=== PATIENT | female | born 1955 | race Caucasian/White ===

== ENCOUNTER 2017-03-13 21:42 | Inpatient (IN) | payer OTHER ==
[2017-03-13 21:42] VITALS: BMI 40.2
[2017-03-13] MEDS ORDERED: Sodium Chloride 0.9% 1,000 ML IV STA (22:16)
--- NOTE | 2017-03-13 22:34 | ED PDOC ---
HPI: Abdomen Time Seen by Provider: 03/13/17 22:02 Chief Complaint (Nursing): Abdominal Pain Chief Complaint (Provider): Abdominal pain History Per: Patient History/Exam Limitations: no limitations Onset/Duration Of Symptoms: Hrs (x6) Current Symptoms Are (Timing): Constant Severity: Mild Quality Of Discomfort: Sharp Additional Complaint(s): Loan Orozco is a 61 year old female, with a past medical history of occurrent intestinal obstruction, hypothyroidism, dyslipidemia, colon cancer and diabetes, who was brought to the emergency department by EMS and is complaining of a constant abdominal pain associated with vomit, and nausea onset for 6 hours. Patient reports symptoms are consistent with past obstructions. She describes the pain as constant and sharp and reports distension in her abdomen. Patient states she vomited once and had persistent nausea. She denies any fever, or chills. No further medical complaints. PMD: Sravan Hillman Past Medical History Reviewed: Historical Data, Nursing Documentation, Vital Signs Vital Signs: Last Vital Signs Temp 98.8 F 03/13/17 21:44 Pulse 86 03/13/17 21:44 Resp 22 03/13/17 21:44 BP 130/58 L 03/13/17 21:44 Pulse Ox 99 03/14/17 01:45 - Medical History PMH: Anemia, Anxiety, Asthma, Bronchitis, Depression, Diabetes, HTN, Hypercholesterolemia, Hyperlipidemia Denies: Hepatitis, HIV, Seizures, Sexually Transmitted Disease - Surgical History Surgical History: Appendectomy, Cholecystectomy - Family History Family History: States: Hypertension - Home Medications Home Medications: Ambulatory Orders Medication Instructions Recorded Albuterol Sulfate [Albuterol 2 puff IH Q6H PRN 05/24/14 Sulfate Hfa] Aspirin [Aspirin EC] 81 mg PO DAILY 05/24/14 Enalapril Maleate 20 mg PO DAILY 05/24/14 Insulin Aspart, Recombinant 15 unit SC BID 05/24/14 [Novolog] Insulin Glargine, Recombinan 34 unit SC HS 05/24/14 [Lantus] Latanoprost [Xalatan] 1 drop EACHEYE HS 05/24/14 Levothyroxine Sodium [Synthroid] 88 mcg PO HS 05/24/14 Meclizine Hydrochloride [Meclizine 25 mg PO TID PRN 05/24/14 HCl] Pantoprazole Sodium [Protonix] 40 mg PO DAILY 05/24/14 Risperidone [Risperdal] 0.5 mg PO HS 05/24/14 Sertraline [Zoloft] 100 mg PO HS 05/24/14 Simvastatin [Zocor] 20 mg PO HS 05/24/14 Zolpidem Tartrate [Ambien] 10 mg PO HS 05/24/14 - Allergies Allergies/Adverse Reactions: Allergies Allergy/AdvReac Type Severity Reaction Status Date / Time No Known Allergies Allergy Verified 05/16/15 12:02 Review of Systems ROS Statement: Except As Marked, All Systems Reviewed And Found Negative Constitutional: Negative for: Fever, Chills Gastrointestinal: Positive for: Nausea (persistent), Vomiting (one episode), Abdominal Pain (constant and sharp) Physical Exam - Reviewed Nursing Documentation Reviewed: Yes Vital Signs Reviewed: Yes - Physical Exam Appears: Positive for: Non-toxic, No Acute Distress (mild pain distress) Head Exam: Positive for: ATRAUMATIC, NORMAL INSPECTION, NORMOCEPHALIC Skin: Positive for: Normal Color, Warm, Dry Eye Exam: Positive for: Normal appearance ENT: Positive for: Normal ENT Inspection Neck: Positive for: Normal, Painless ROM, Supple Cardiovascular/Chest: Positive for: Regular Rate, Rhythm. Negative for: Murmur Respiratory: Positive for: Normal Breath Sounds. Negative for: Respiratory Distress Gastrointestinal/Abdominal: Positive for: Bowel Sounds (hypoactive bowel sounds) , Tenderness (diffusely tender ), Distended Extremity: Positive for: Normal ROM. Negative for: Pedal Edema, Deformity Neurologic/Psych: Positive for: Alert, Oriented. Negative for: Motor/Sensory Deficits - Laboratory Results Result Diagrams: 03/13/17 23:31 03/13/17 23:31 - ECG O2 Sat by Pulse Oximetry: 99 (RA) Pulse Ox Interpretation: Normal Medical Decision Making Medical Decision Making: Initial Impression: 61 y/o female with abdominal distension and recurring intestinal obstructions Initial Plan: --Abd & Pelvis IV contrast only [CT] --EKG --CMP --Lact acid, Plasma --Lipase --Urine dipstick --CBC w/ differential --PTT --PT --Morphine 8 mg IVP --NS IV 1,000 ml @ 1,000 mls/hr --Zofran Inj 4 mg IV --Urinalysis --reevaluation 01:30 (03/14/17) CT A/P scan reviewed. Findings noted as follows: Lower thorax: Bibasilar right patchy mild nonspecific infiltrates are present, with peribronchial thickening consistent with atelectasis or pneumonia. There is fluid in the distal esophagus with wall thickening representing delayed emptying versus gastroesophageal reflux. ABDOMEN: Liver: Enlarged nodular cirrhotic liver. Gallbladder and bile ducts: Cholecystectomy. Pancreas: Unremarkable. No mass. No ductal dilation. Spleen: Splenomegaly. Adrenals: Unremarkable. No mass. Kidneys and ureters: Unremarkable. No solid mass. No hydronephrosis. Stomach and bowel: There is fluid filled stomach and small bowel loops with mesenteric edema. The small bowel loops are dilated with possible transition at the level of the anastomosis seen on image 64 series 2. There is ileocolic anastomosis in the mid anterior abdomen the dilatation of small bowel loops proximal to the anastomosis. Correlation with patient's clinical obstructive symptoms is recommended if partial small bowel obstruction is clinically suspected. Clinical history of colon cancer. Diverticulosis. No mucosal thickening. Appendix: Appendectomy. PELVIS: Bladder: Partially decompressed bladder with bladder wall thickening. Correlation with urinalysis is recommended only if clinical cystitis is suspected. Reproductive: Hysterectomy. ABDOMEN and PELVIS: Intraperitoneal space: Unremarkable. No free air. No significant fluid collection. Bones/joints: L4-L5 and L5-S1 vacuum degenerative disc disease. No acute fracture. No dislocation. Soft tissues: There is diastases of inferior rectus muscle. Anterior abdominal wall suprapubic infiltration likely a sequela postoperative etiology. Vasculature: Unremarkable. No abdominal aortic aneurysm. Lymph nodes: Unremarkable. No enlarged lymph nodes. IMPRESSION: 1. There is fluid filled stomach and small bowel loops with mesenteric edema. The small bowel loops are dilated with possible transition at the level of the anastomosis seen on image 64 series 2. There is ileocolic anastomosis in the mid anterior abdomen the dilatation of small bowel loops proximal to the anastomosis. Correlation with patient's clinical obstructive symptoms is recommended if partial small bowel obstruction is clinically suspected. Close clinical followup is recommended. 2. Cirrhotic liver disease. Splenomegaly. 01:[address] Chirag Hillman, the provider known to patient from previous episodes of small bowel obstruction. Patient will be evaluated in the morning. 01:[address] Clemente who agrees to admit patient. Upon provider reevaluation patient is medically stable and requires no further treatment in the ED at this time. Counseling was provided and all questions were answered regarding diagnosis. There is agreement to plan of admission. Return if symptoms persist or worsen. Clinical impression: Small bowel obstruction Scribe Attestation: Documented by Real Man and Gia Crocker, acting as scribes for Quinten Hinds MD. Provider Scribe Attestation: All medical record entries made by the Scribe were at my direction and personally dictated by me. I have reviewed the chart and agree that the record accurately reflects my personal performance of the history, physical exam, medical decision making, and the department course for this patient. I have also personally directed, reviewed, and agree with the discharge instructions and disposition. Disposition - Clinical Impression Clinical Impression: Small bowel obstruction - Patient ED Disposition Is Patient to be Admitted: Yes Discussed With DrDomonique: Chirag Hillman Doctor Will See Patient In The: Hospital Counseled Patient/Family Regarding: Studies Performed, Diagnosis - Disposition Disposition: Transfer of Care Disposition Time: 01:42 Condition: FAIR Forms: [facility] (Bhutanese)
[2017-03-13 23:34] LABS: BASO % 0.8 % (0.0-2.0); EOS # 0.1 K/uL (0.0-0.7); EOS % 3.1 % (0.0-4.0); HEMATOCRIT 31.5 % (34.0-47.0); LYMPH # 0.6 K/uL (1.0-4.3); LYMPH % 17.1 % (20.0-40.0); MEAN CORPUSCULAR HEMOGLOBIN 24.1 pg (27.0-31.0); MEAN CORPUSCULAR HGB CONC 30.9 g/dL (33.0-37.0); MEAN PLATELET VOLUME 10.3 fl (7.2-11.7); MONO # 0.2 K/uL (0.0-0.8); MONO % 5.2 % (0.0-10.0); NEUT # 2.6 K/uL (1.8-7.0); NEUT % 73.8 % (50.0-75.0); RED CELL DISTRIBUTION WIDTH 17.3 % (11.5-14.5); WHITE BLOOD COUNT 3.6 K/uL (4.8-10.8)
[2017-03-13 23:42] LABS: ALB/GLOB RATIO 1.2 (1.0-2.1); ALKALINE PHOSPHATASE 107 U/L (38-126); ALT/SGPT 34 U/L (9-52); AST/SGOT 39 U/L (14-36); BILIRUBIN,TOTAL 0.7 mg/dl (0.2-1.3); BLOOD UREA NITROGEN 9 mg/dl (7-17); CALCIUM 9.1 mg/dL (8.4-10.2); CARBON DIOXIDE 24 mmol/L (22-30); CHLORIDE 108 mmol/L (98-107); GFR AFRICAN-AMERICAN > 60; GLUCOSE,RANDOM 161 mg/dL (65-105); LIPASE 45 U/L (23-300); POTASSIUM 3.8 MMOL/L (3.6-5.0); SODIUM 143 mmol/l (132-148); TOTAL PROTEIN 7.9 G/DL (6.3-8.2)
[2017-03-13 23:57] LABS: PARTIAL THROMBOPLASTIN TIME 33.8 Seconds (25.6-37.1)
[2017-03-14] MEDS ORDERED: Iohexol 300 100 ML IJ ONE (00:22)
[2017-03-14] MEDS ORDERED: Sodium Chloride 0.9% 100 ML ONE (00:22)
[2017-03-14 00:46] LABS: URINE BILIRUBIN NEGATIVE (NEGATIVE); URINE BLOOD NEGATIVE (NEGATIVE); URINE COLOR STRAW (YELLOW); URINE GLUCOSE (UA) NEG (Normal); URINE KETONE NEGATIVE (NEGATIVE); URINE LEUKOCYTE ESTERASE TRACE Leu/uL (Negative); URINE PROTEIN NEGATIVE (NEGATIVE); URINE UROBILINOGEN 0.2-1.0 mg/dL (0.2-1.0)
--- NOTE | 2017-03-14 01:31 | CT ---
EXAM: CT Abdomen and Pelvis With Intravenous Contrast CLINICAL HISTORY: 61 years old, female; Pain; Abdominal pain; Generalized; Prior surgery; Surgery date: 6+ months; Surgery type: Hysterectomy. Appendectomy. Gall bladder. Colon ca; Additional info: Abd pain HX obstruction TECHNIQUE: Axial computed tomography images of the abdomen and pelvis with intravenous contrast. All CT scans at this facility use one or more dose reduction techniques, viz.: automated exposure control; ma/kV adjustment per patient size (including targeted exams where dose is matched to indication; i.e. head); or iterative reconstruction technique. 654 images are submitted. Axial images are submitted and lung windows. Coronal and sagittal reformatted images were created and reviewed. CONTRAST: 95 mL of [id number] administered intravenously. COMPARISON: CT ABD AND PELV W/CONTRAST 12/06/2013 8:20:23 PM FINDINGS: Lower thorax: Bibasilar right patchy mild nonspecific infiltrates are present, with peribronchial thickening consistent with atelectasis or pneumonia. There is fluid in the distal esophagus with wall thickening representing delayed emptying versus gastroesophageal reflux. ABDOMEN: Liver: Enlarged nodular cirrhotic liver. Gallbladder and bile ducts: Cholecystectomy. Pancreas: Unremarkable. No mass. No ductal dilation. Spleen: Splenomegaly. Adrenals: Unremarkable. No mass. Kidneys and ureters: Unremarkable. No solid mass. No hydronephrosis. Stomach and bowel: There is fluid filled stomach and small bowel loops with mesenteric edema. The small bowel loops are dilated with possible transition at the level of the anastomosis seen on image 64 series 2. There is ileocolic anastomosis in the mid anterior abdomen the dilatation of small bowel loops proximal to the anastomosis. Correlation with patient's clinical obstructive symptoms is recommended if partial small bowel obstruction is clinically suspected. Clinical history of colon cancer. Diverticulosis. No mucosal thickening. Appendix: Appendectomy. PELVIS: Bladder: Partially decompressed bladder with bladder wall thickening. Correlation with urinalysis is recommended only if clinical cystitis is suspected. Reproductive: Hysterectomy. ABDOMEN and PELVIS: Intraperitoneal space: Unremarkable. No free air. No significant fluid collection. Bones/joints: L4-L5 and L5-S1 vacuum degenerative disc disease. No acute fracture. No dislocation. Soft tissues: There is diastases of inferior rectus muscle. Anterior abdominal wall suprapubic infiltration likely a sequela postoperative etiology. Vasculature: Unremarkable. No abdominal aortic aneurysm. Lymph nodes: Unremarkable. No enlarged lymph nodes. IMPRESSION: 1. There is fluid filled stomach and small bowel loops with mesenteric edema. The small bowel loops are dilated with possible transition at the level of the anastomosis seen on image 64 series 2. There is ileocolic anastomosis in the mid anterior abdomen the dilatation of small bowel loops proximal to the anastomosis. Correlation with patient's clinical obstructive symptoms is recommended if partial small bowel obstruction is clinically suspected. Close clinical followup is recommended. 2. Cirrhotic liver disease. Splenomegaly. CRITICAL RESULT: The study was personally discussed on the telephone with [Quinten Green] on 03/14/2017 1:28 AM EDT. The results were understood and acknowledged.
--- NOTE | 2017-03-14 02:32 | CP.PCM.HP ---
History of Present Illness - History of Present Illness History of Present Illness: CC: Stomach pain HPI: 61 year old female PMH cirrhosis, hx intestinal obstruction, s/p Colon CA, multiple abdominal surgeries, HTN, IDDMII, hypothyroid presents to the emergency room after a one day history of moderate to severe generalized cramping abdominal pain associated with nausea and one episode of NBNB emesis. Patient states her last BM was approximately 24 hours ago, no flatus since then. In the emergency room patient felt improved with zofran, fluids, and morphine. 03/13/17 CT abd pel demonstrated +possible partial SBO, if correlated clinically. +Cirrhotic liver disease and splenomegaly. Discussed with ER physician, surgery consulted in ER, no NGT at this time, watchful monitoring with fluids, NPO, pain control. NSS NAD. ROS: per HPI, 12 systems reviewed and negative PMD: Dr. Sravan Hillman GI: Dr. Ashkan Lopez PMH: cirrhosis, hx intestinal obstruction, s/p Colon CA, multiple abdominal surgeries, HTN, IDDMII, hypothyroid PSH: appendectomy, cholecystectomy, hysterectomy, colon CA, hernia repair, hx obstruction FH: CAD HTN SH: denies tobacco, ETOH, IVDU Meds: as below Allergies: NKDA Vitals: reviewed and currently stable Temp Pulse Resp BP Pulse Ox 98.8 F 86 22 130/58 L 99 03/13/17 21:44 03/13/17 21:44 03/13/17 21:44 03/13/17 21:44 03/14/17 01:47 Exam: GEN: WDWN, alert, cooperative HEENT: NCAT, PERRL, EOMI NECK: supple, no JVD, no lymphadenopathy CARDIAC: +S1S2 RRR LUNG: CTAB No WRR ABD: SOFT obese distended hypoactive BS masses and hsm unable to be appreciated 2/2 habitus EXT: +pedal pulses, equal strength NEURO: AAOx3 SKIN warm, dry PSYCH normal mood, normal affect Labs: 03/13/17 23:31 03/13/17 23:31 PT 13.9 Seconds (9.8-13.1) H 03/13/17 23:31 INR 1.3 (0.9-1.2) H 03/13/17 23:31 APTT 33.8 Seconds (25.6-37.1) 03/13/17 23:31 Imaging Studies 03/13/17 CT abd pel demonstrated +possible partial SBO, if correlated clinically. +Cirrhotic liver disease and splenomegaly. Active Medications: 03/14/17 02:12 Ondansetron [Zofran Inj] 4 mg IVP Q6 PRN 03/14/17 02:14 Morphine 2 mg IVP Q6 PRN 03/14/17 02:15 D5W/0.45%NS 1L+20MEQ KCL 125ML/HR(Q8H) Potassium Ch 20mEq in D5-1/2NS [ Potassium Chl 20 mEq in D5-1/2NS] 1,000 ml IV 125 mls/hr 03/14/17 07:30 Insulin Lispro [humALOG] See Protocol SC ACHS 03/14/17 09:00 Aspirin [Ecotrin] 81 mg PO DAILY Enalapril Maleate [Vasotec] 20 mg PO DAILY Enoxaparin [Lovenox] 40 mg SC DAILY 03/14/17 22:00 Latanoprost 0.005% Opht [Xalatan Opht] 1 drop OU HS Levothyroxine [Synthroid] 88 mcg PO HS Sertraline [Zoloft] 100 mg PO HS Assessment and Plan: 61 year old female PMH cirrhosis, hx intestinal obstruction, s/p Colon CA, multiple abdominal surgeries, HTN, IDDMII, hypothyroid presents to the emergency room after a one day history of moderate to severe generalized cramping abdominal pain associated with nausea and one episode of NBNB emesis. Patient states her last BM was approximately 24 hours ago, no flatus since then. In the emergency room patient felt improved with zofran, fluids, and morphine. 03/13/17 CT abd pel demonstrated +possible partial SBO, if correlated clinically. +Cirrhotic liver disease and splenomegaly. Discussed with ER physician, surgery consulted in ER, no NGT at this time, watchful monitoring with fluids, NPO, pain control. NSS NAD. SBO pt initially presented with abdominal pain, 24 hours of no BM or flatus, with nausea and one episode of NBNB emesis 03/13/17 CT abd pel demonstrated +possible partial SBO, if correlated clinically. +Cirrhotic liver disease and splenomegaly. NPO except medications D5 1/2 NS + 20 KCl at 125 cc/hr Dr. Chirag Hillman Surgery Consult No NGT at this time, will monitor Serial abdominal exams Zofran for nausea Morphine for pain control HTN stable cont Enalapril IDDMII stable controlled ACCUCHECKS lispro coverage D5 1/2 NS + 20 KCl at 125 cc/hr Hypothyroid stable continue levothyroxine Cirrhosis stable Dr. Lopez is patient's GI physician Hx Colon CA stable VTE ppx Lovenox Present on Admission - Present on Admission Any Indicators Present on Admission: No Past Patient History - Past Medical History & Family History Past Medical History?: Yes - Past Social History Smoking Status: Never Smoked - CARDIAC Hx Hypercholesterolemia: Yes Hx Hypertension: Yes - PULMONARY Hx Asthma: Yes Hx Bronchitis: Yes - NEUROLOGICAL Hx Seizures: No - HEENT Hx HEENT Problems: Yes Hx Cataracts: Yes (Right) Hx Glaucoma: Yes (left) - ENDOCRINE/METABOLIC Hx Diabetes Mellitus Type 1: Yes Hx Diabetes Mellitus Type 2: Yes - HEMATOLOGICAL/ONCOLOGICAL Hx Anemia: Yes Hx Human Immunodeficiency Virus (HIV): No - INTEGUMENTARY Hx Dermatological Problems: No - MUSCULOSKELETAL/RHEUMATOLOGICAL Hx Falls: Yes - GASTROINTESTINAL Hx Bowel Surgery: Yes Hx Colostomy: Yes (reversed 2008) Hx Gastroesophageal Reflux: Yes Other/Comment: colon ca - GENITOURINARY/GYNECOLOGICAL Hx Sexually Transmitted Disorders: No - PSYCHIATRIC Hx Anxiety: Yes Hx Depression: Yes - SURGICAL HISTORY Hx Appendectomy: Yes Hx Cholecystectomy: Yes - ANESTHESIA Hx Anesthesia: Yes Hx Anesthesia Reactions: No Hx Malignant Hyperthermia: No Meds Allergies/Adverse Reactions: Allergies Allergy/AdvReac Type Severity Reaction Status Date / Time No Known Allergies Allergy Verified 05/16/15 12:02 Results - Vital Signs Recent Vital Signs: Last Vital Signs Temp 98.8 F 03/13/17 21:44 Pulse 86 03/13/17 21:44 Resp 22 03/13/17 21:44 BP 130/58 L 03/13/17 21:44 Pulse Ox 99 03/14/17 01:47 - Labs Result Diagrams: 03/13/17 23:31 03/13/17 23:31 Labs: Laboratory Results - last 24 hr 03/13/17 03/13/17 03/13/17 23:31 23:31 23:31 WBC 3.6 L RBC 4.04 Hgb 9.7 L Hct 31.5 L MCV 78.0 L D MCH 24.1 L MCHC 30.9 L RDW 17.3 H Plt Count 107 L MPV 10.3 Neut % (Auto) 73.8 Lymph % (Auto) 17.1 L [place] % (Auto) 5.2 Eos % (Auto) 3.1 Baso % (Auto) 0.8 Neut # 2.6 Lymph # 0.6 L [place] # 0.2 Eos # 0.1 Baso # 0.0 PT INR APTT Sodium 143 Potassium 3.8 Chloride 108 H Carbon Dioxide 24 Anion Gap 15 BUN 9 Creatinine 0.7 Est GFR ( Amer) > 60 Est GFR (Non-Af Amer) > 60 Random Glucose 161 H Lactic Acid 1.5 Calcium 9.1 Total Bilirubin 0.7 AST 39 H ALT 34 Alkaline Phosphatase 107 Total Protein 7.9 Albumin 4.3 Globulin 3.7 Albumin/Globulin Ratio 1.2 Lipase 45 Urine Color Urine Clarity Urine pH Ur Specific [place] Urine Protein Urine Glucose (UA) Urine Ketones Urine Blood Urine Nitrate Urine Bilirubin Urine Urobilinogen Ur Leukocyte Esterase 03/13/17 03/14/17 23:31 00:41 WBC RBC Hgb Hct MCV MCH MCHC RDW Plt Count MPV Neut % (Auto) Lymph % (Auto) [place] % (Auto) Eos % (Auto) Baso % (Auto) Neut # Lymph # [place] # Eos # Baso # PT 13.9 H INR 1.3 H APTT 33.8 Sodium Potassium Chloride Carbon Dioxide Anion Gap BUN Creatinine Est GFR ( Amer) Est GFR (Non-Af Amer) Random Glucose Lactic Acid Calcium Total Bilirubin AST ALT Alkaline Phosphatase Total Protein Albumin Globulin Albumin/Globulin Ratio Lipase Urine Color Straw Urine Clarity Clear Urine pH 7.0 Ur Specific [place] < 1.005 Urine Protein Negative Urine Glucose (UA) Neg Urine Ketones Negative Urine Blood Negative Urine Nitrate Negative Urine Bilirubin Negative Urine Urobilinogen 0.2-1.0 Ur Leukocyte Esterase Trace
[2017-03-14] MEDS: Potassium Ch 20mEq in D5-1/2NS 1,000 ML IV SCH ×3 (03:42→10:18)
[2017-03-14 06:28] LABS: HEMATOCRIT 29.1 % (34.0-47.0); MEAN CELL VOLUME 78.3 fl (81.0-99.0); MEAN CORPUSCULAR HEMOGLOBIN 24.2 pg (27.0-31.0); MEAN CORPUSCULAR HGB CONC 30.9 g/dL (33.0-37.0); RED CELL DISTRIBUTION WIDTH 17.2 % (11.5-14.5)
[2017-03-14 07:00] LABS: BLOOD UREA NITROGEN 9 mg/dl (7-17); CALCIUM 8.5 mg/dL (8.4-10.2); CARBON DIOXIDE 21 mmol/L (22-30); CHLORIDE 109 mmol/L (98-107); GFR AFRICAN-AMERICAN > 60; GLUCOSE,RANDOM 175 mg/dL (65-105); POTASSIUM 3.8 MMOL/L (3.6-5.0); SODIUM 141 mmol/l (132-148)
--- NOTE | 2017-03-14 08:16 | CP.PCM.CON ---
History of Present Illness - History of Present Illness History of Present Illness: General Surgery Consult note 61F pmh cirrhosis 2/2 chemo treatment, Colon CA, multiple abdominal surgeries, HTN, IDDMII, hypothyroid presened to [facility] ED after a one day history of moderate to severe generalized cramping abdominal pain associated with nausea and one episode of NBNB emesis. Patient states her last BM was approximately 24 hours ago, no flatus. Pt had similar episode and was resolved with surgery. During encounter pt states she is feeling better after medication and has passed flatus. Denies F/C CP Numbness tingling in the extremities. PMH: cirrhosis, hx intestinal obstruction, s/p Colon CA, multiple abdominal surgeries, HTN, IDDMII, hypothyroid PSH: appendectomy, cholecystectomy, hysterectomy, colon resection, hernia repair , hx obstruction SocialHx: denies tobacco, ETOH, IVDU ALL: NKDA Past Patient History - Past Medical History & Family History Past Medical History?: Yes - Past Social History Smoking Status: Never Smoked - CARDIAC Hx Cardiac Disorders: Yes - PULMONARY Hx Respiratory Disorders: Yes - NEUROLOGICAL Hx Seizures: No - HEENT Hx HEENT Problems: Yes - ENDOCRINE/METABOLIC Hx Endocrine Disorders: Yes - HEMATOLOGICAL/ONCOLOGICAL Hx Blood Disorders: Yes - INTEGUMENTARY Hx Dermatological Problems: No - MUSCULOSKELETAL/RHEUMATOLOGICAL Hx Falls: Yes - GASTROINTESTINAL Hx Bowel Surgery: Yes Hx Colostomy: Yes (reversed 2008) Hx Gastroesophageal Reflux: Yes Other/Comment: colon ca - GENITOURINARY/GYNECOLOGICAL Hx Genitourinary Disorders: Yes - PSYCHIATRIC Hx Substance Use: No - SURGICAL HISTORY Hx Appendectomy: Yes Hx Cholecystectomy: Yes - ANESTHESIA Hx Anesthesia: Yes Hx Anesthesia Reactions: No Hx Malignant Hyperthermia: No Meds Allergies/Adverse Reactions: Allergies Allergy/AdvReac Type Severity Reaction Status Date / Time No Known Allergies Allergy Verified 05/16/15 12:02 - Medications Medications: Current Medications Aspirin (Ecotrin) 81 mg PO DAILY [facility] Enalapril Maleate (Vasotec) 20 mg PO DAILY [facility] Enoxaparin Sodium (Lovenox) 40 mg SC DAILY [facility] PRN Reason: Protocol Potassium Chloride/Dextrose/Sod Cl (Potassium Chl 20 Meq In D5-1/2ns) 1,000 mls @ 125 mls/hr IV .Q8H [facility] Stop: 03/15/17 02:12 Last Admin: 03/14/17 03:42 Dose: 125 mls/hr Insulin Human Lispro (Humalog) 0 units SC ACHS [facility] PRN Reason: Protocol Latanoprost (Xalatan Opht) 1 drop OU HS [facility] Levothyroxine Sodium (Synthroid) 88 mcg PO HS [facility] Morphine Sulfate (Morphine) 2 mg IVP Q6 PRN PRN Reason: Pain, severe (8-10) Last Admin: 03/14/17 03:30 Dose: 2 mg Ondansetron HCl (Zofran Inj) 4 mg IVP Q6 PRN PRN Reason: Nausea/Vomiting Sertraline HCl (Zoloft) 100 mg PO HS [facility] Physical Exam - Constitutional Appears: Non-toxic, No Acute Distress - Head Exam Head Exam: ATRAUMATIC - Eye Exam Eye Exam: EOMI. absent: Scleral icterus - ENT Exam ENT Exam: Mucous Membranes Moist - Respiratory Exam Respiratory Exam: NORMAL BREATHING PATTERN. absent: Accessory Muscle Use, Respiratory Distress - Cardiovascular Exam Cardiovascular Exam: +S1, +S2. absent: Bradycardia, Tachycardia - GI/Abdominal Exam GI & Abdominal Exam: Distended, Normal Bowel Sounds, Soft, Tenderness. absent: Firm, Guarding, Hernia, Rebound, Rigid Additional comments: generalized subumbilical tenderness to deep palpation - Extremities Exam Additional comments: RLE scar from IO placement in June - Neurological Exam Neurological exam: Alert, Oriented x3 - Psychiatric Exam Psychiatric exam: Normal Affect - Skin Skin Exam: Dry, Warm Results - Vital Signs Recent Vital Signs: Last Vital Signs Temp 98.4 F 03/14/17 08:03 Pulse 73 03/14/17 08:03 Resp 20 03/14/17 08:03 BP 112/72 03/14/17 08:03 Pulse Ox 99 03/14/17 08:03 - Labs Result Diagrams: 03/14/17 06:05 03/14/17 06:05 Labs: Laboratory Results - last 24 hr 03/13/17 03/13/17 03/13/17 23:31 23:31 23:31 WBC 3.6 L RBC 4.04 Hgb 9.7 L Hct 31.5 L MCV 78.0 L D MCH 24.1 L MCHC 30.9 L RDW 17.3 H Plt Count 107 L MPV 10.3 Neut % (Auto) 73.8 Lymph % (Auto) 17.1 L [place] % (Auto) 5.2 Eos % (Auto) 3.1 Baso % (Auto) 0.8 Neut # 2.6 Lymph # 0.6 L [place] # 0.2 Eos # 0.1 Baso # 0.0 PT INR APTT Sodium 143 Potassium 3.8 Chloride 108 H Carbon Dioxide 24 Anion Gap 15 BUN 9 Creatinine 0.7 Est GFR ( Amer) > 60 Est GFR (Non-Af Amer) > 60 POC Glucose (mg/dL) Random Glucose 161 H Lactic Acid 1.5 Calcium 9.1 Total Bilirubin 0.7 AST 39 H ALT 34 Alkaline Phosphatase 107 Troponin I Total Protein 7.9 Albumin 4.3 Globulin 3.7 Albumin/Globulin Ratio 1.2 Lipase 45 Urine Color Urine Clarity Urine pH Ur Specific [place] Urine Protein Urine Glucose (UA) Urine Ketones Urine Blood Urine Nitrate Urine Bilirubin Urine Urobilinogen Ur Leukocyte Esterase 03/13/17 03/14/17 03/14/17 23:31 00:41 05:02 WBC RBC Hgb Hct MCV MCH MCHC RDW Plt Count MPV Neut % (Auto) Lymph % (Auto) [place] % (Auto) Eos % (Auto) Baso % (Auto) Neut # Lymph # [place] # Eos # Baso # PT 13.9 H INR 1.3 H APTT 33.8 Sodium Potassium Chloride Carbon Dioxide Anion Gap BUN Creatinine Est GFR ( Amer) Est GFR (Non-Af Amer) POC Glucose (mg/dL) 198 H Random Glucose Lactic Acid Calcium Total Bilirubin AST ALT Alkaline Phosphatase Troponin I Total Protein Albumin Globulin Albumin/Globulin Ratio Lipase Urine Color Straw Urine Clarity Clear Urine pH 7.0 Ur Specific [place] < 1.005 Urine Protein Negative Urine Glucose (UA) Neg Urine Ketones Negative Urine Blood Negative Urine Nitrate Negative Urine Bilirubin Negative Urine Urobilinogen 0.2-1.0 Ur Leukocyte Esterase Trace 03/14/17 03/14/17 03/14/17 06:05 06:05 06:05 WBC 3.0 L RBC 3.72 L Hgb 9.0 L Hct 29.1 L MCV 78.3 L MCH 24.2 L MCHC 30.9 L RDW 17.2 H Plt Count 91 L MPV Neut % (Auto) Lymph % (Auto) [place] % (Auto) Eos % (Auto) Baso % (Auto) Neut # Lymph # [place] # Eos # Baso # PT INR APTT Sodium 141 Potassium 3.8 Chloride 109 H Carbon Dioxide 21 L Anion Gap 15 BUN 9 Creatinine 0.6 L Est GFR ( Amer) > 60 Est GFR (Non-Af Amer) > 60 POC Glucose (mg/dL) Random Glucose 175 H Lactic Acid Calcium 8.5 Total Bilirubin AST ALT Alkaline Phosphatase Troponin I < 0.0120 Total Protein Albumin Globulin Albumin/Globulin Ratio Lipase Urine Color Urine Clarity Urine pH Ur Specific [place] Urine Protein Urine Glucose (UA) Urine Ketones Urine Blood Urine Nitrate Urine Bilirubin Urine Urobilinogen Ur Leukocyte Esterase Assessment & Plan - Assessment and Plan (Free Text) Assessment: 61F abdominal pain pSBO Plan: - IVF - NPO - GI/DVTppx - Pain control - No acute surgical intervention at this time will discuss with surgical attending Erasmo Cesar PGY1
--- NOTE | 2017-03-14 08:44 | CARD ---
APPROVED REPORT EKG Measurement Heart [id number] <Conclusion> Normal sinus rhythm ST & T wave abnormality, consider inferolateral ischemia Abnormal ECG
--- NOTE | 2017-03-14 09:07 | RAD ---
HISTORY: abd pain COMPARISON: Chest x-ray 05/24/14, lung bases performed on subsequent CT of the abdomen and pelvis with contrast performed 03/14/17 TECHNIQUE: Chest, one view. FINDINGS: Examination limited by habitus LUNGS: Mild pulmonary venous congestion. Mild bibasilar atelectasis/ infiltrates. Please note that chest x-ray has limited sensitivity for the detection of pulmonary masses. PLEURA: No significant pleural effusion identified. No definite pneumothorax . CARDIOVASCULAR: Borderline cardiomegaly. OSSEOUS STRUCTURES: Degenerative changes. Postsurgical changes, left humeral head. VISUALIZED UPPER ABDOMEN: Unremarkable. OTHER FINDINGS: None. IMPRESSION: Mild pulmonary venous congestion. Mild bibasilar atelectasis/infiltrates.
[2017-03-14] MEDS: Insulin Lispro (humaLOG) 100 Units/ml Inj SC SCH ×5 (09:15→22:00)
[2017-03-14] MEDS: Enoxaparin 40 mg Syringe SC SCH (10:17)
--- NOTE | 2017-03-14 10:43 | CP.PCM.PN ---
<Padmini Antonio - Last Filed: 03/14/17 15:54> Subjective - Date & Time of Evaluation Date of Evaluation: 03/14/17 Time of Evaluation: 09:15 - Subjective Subjective: Patient seen and examined at bedside. NAD, AAOx3. pt reports passing gas per rectum at 5 am but no improvement after that. No BM,feels heavy to stomach but denies any abdo pain. pt is NPO, voiding freely. Denies any chest pain, SOB, vomiting or nausea at this time. Objective - Vital Signs/Intake and Output Vital Signs (last 24 hours): Temp Pulse Resp BP Pulse Ox 98.4 F 73 20 112/72 99 03/14/17 08:03 03/14/17 08:03 03/14/17 08:03 03/14/17 08:03 03/14/17 08:03 - Medications Medications: Current Medications Aspirin (Ecotrin) 81 mg PO DAILY [facility] Last Admin: 03/14/17 10:17 Dose: 81 mg Enalapril Maleate (Vasotec) 20 mg PO DAILY [facility] Last Admin: 03/14/17 10:17 Dose: 20 mg Enoxaparin Sodium (Lovenox) 40 mg SC DAILY [facility] PRN Reason: Protocol Last Admin: 03/14/17 10:17 Dose: 40 mg Potassium Chloride/Dextrose/Sod Cl (Potassium Chl 20 Meq In D5-1/2ns) 1,000 mls @ 125 mls/hr IV .Q8H [facility] Stop: 03/15/17 02:12 Last Admin: 03/14/17 10:18 Dose: 125 mls/hr Insulin Human Lispro (Humalog) 0 units SC ACHS [facility] PRN Reason: Protocol Last Admin: 03/14/17 10:20 Dose: 1 u Latanoprost (Xalatan Opht) 1 drop OU HS [facility] Levothyroxine Sodium (Synthroid) 88 mcg PO HS [facility] Morphine Sulfate (Morphine) 2 mg IVP Q6 PRN PRN Reason: Pain, severe (8-10) Last Admin: 03/14/17 03:30 Dose: 2 mg Ondansetron HCl (Zofran Inj) 4 mg IVP Q6 PRN PRN Reason: Nausea/Vomiting Sertraline HCl (Zoloft) 100 mg PO HS [facility] - Labs Labs: 03/14/17 06:05 03/14/17 06:05 PT 13.9 Seconds (9.8-13.1) H 03/13/17 23:31 INR 1.3 (0.9-1.2) H 03/13/17 23:31 APTT 33.8 Seconds (25.6-37.1) 03/13/17 23:31 - Constitutional Appears: No Acute Distress - Head Exam Head Exam: ATRAUMATIC, NORMAL INSPECTION, NORMOCEPHALIC - Eye Exam Eye Exam: EOMI, Normal appearance. absent: Scleral icterus Pupil Exam: PERRL - ENT Exam ENT Exam: Mucous Membranes Moist - Neck Exam Neck Exam: Normal Inspection - Respiratory Exam Respiratory Exam: Clear to Ausculation Bilateral, NORMAL BREATHING PATTERN - Cardiovascular Exam Cardiovascular Exam: REGULAR RHYTHM, +S1, +S2 - GI/Abdominal Exam GI & Abdominal Exam: Distended, Soft, Tenderness (mild on deep palpation ), Hypoactive Bowel Sounds - Extremities Exam Extremities Exam: absent: Calf Tenderness Additional comments: small 1X1 cm stage 1 pressure ulcer on right mid- anter shine - Back Exam Back Exam: absent: CVA tenderness (L), CVA tenderness (R) - Neurological Exam Neurological Exam: Alert, Awake, Oriented x3 Neuro motor strength exam: Left Upper Extremity: 5, Right Upper Extremity: 5, Left Lower Extremity: 5, Right Lower Extremity: 5 - Psychiatric Exam Psychiatric exam: Flat Affect - Skin Skin Exam: Dry, Intact, Normal Color, Warm Assessment and Plan - Assessment and Plan (Free Text) Assessment: A/P: 61 y/o F with PMH of cirrhosis, Colon CA, multiple abdominal surgeries, HTN, IDDMII, hypothyroid admitted for one day history of moderate to severe generalized cramping abdominal pain associated with nausea and one episode of emesis. last BM/flatus on 03/13. Short Bowel Obstruction, Hx of multiple abdo surgeries - 03/13/17 CT abd pel demonstrated +possible partial SBO, if correlated clinically. +Cirrhotic liver disease and splenomegaly - NPO - Continue D5 1/2 NS + 20 KCl at 125 cc/hr - Dr. Chirag Hillman Surgery Consult appreciated - No NGT at this time - No surgical interventions at this time as per surgery - Zofran 4mg Q6 PRN for nausea - Morphine 2mg Q6 PRN for pain - Protonix 40mg IV daily HTN -stable -Enalapril IV PRN IDDMII -stable -ACCUCHECKS -Humalog coverage -D5 1/2 NS + 20 KCl at 125 cc/hr Hypothyroid -stable -continue levothyroxine 88 mg Pancytopenia - Chronic - Possibally due to malignancy vs medications - CT: Splenomegaly - f/u iron & TIBC - f/u B12 and B9 Coagulopathy - PT 13.9, INR 1.3 - Chronic live disease - will repeat and monitor Cirrhosis -stable -Dr. Lopez is patient's GI physician, F/u after d/c Hx Colon CA -stable Obesity - BMI 34.9 - Lifestyle and diet modification Depression - Continue Zoloft 100mg VTE ppx -Lovenox 40mg SC daily <Angela Perdomo - Last Filed: 03/14/17 16:12> Objective - Vital Signs/Intake and Output Vital Signs (last 24 hours): Temp Pulse Resp BP Pulse Ox 98.4 F 73 20 112/72 99 03/14/17 08:03 03/14/17 08:03 03/14/17 08:03 03/14/17 08:03 03/14/17 08:03 - Medications Medications: Current Medications Aspirin (Ecotrin) 81 mg PO DAILY [facility] Last Admin: 03/14/17 10:17 Dose: 81 mg Enoxaparin Sodium (Lovenox) 40 mg SC DAILY [facility] PRN Reason: Protocol Last Admin: 03/14/17 10:17 Dose: 40 mg Potassium Chloride/Dextrose/Sod Cl (Potassium Chl 20 Meq In D5-1/2ns) 1,000 mls @ 125 mls/hr IV .Q8H [facility] Stop: 03/15/17 02:12 Last Admin: 03/14/17 10:18 Dose: 125 mls/hr Insulin Human Lispro (Humalog) 0 units SC ACHS [facility] PRN Reason: Protocol Last Admin: 03/14/17 14:18 Dose: 1 u Latanoprost (Xalatan Opht) 1 drop OU HS [facility] Levothyroxine Sodium (Synthroid) 88 mcg PO HS [facility] Morphine Sulfate (Morphine) 2 mg IVP Q6 PRN PRN Reason: Pain, severe (8-10) Last Admin: 03/14/17 14:54 Dose: 2 mg Ondansetron HCl (Zofran Inj) 4 mg IVP Q6 PRN PRN Reason: Nausea/Vomiting Pantoprazole Sodium (Protonix Inj) 40 mg IVP DAILY [facility] Sertraline HCl (Zoloft) 100 mg PO HS [facility] - Labs Labs: 03/14/17 06:05 03/14/17 06:05 PT 13.9 Seconds (9.8-13.1) H 03/13/17 23:31 INR 1.3 (0.9-1.2) H 03/13/17 23:31 APTT 33.8 Seconds (25.6-37.1) 03/13/17 23:31 Attending/Attestation - Attestation I have personally seen and examined this patient.: Yes I have fully participated in the care of the patient.: Yes I have reviewed all pertinent clinical information, including history, physical exam and plan: Yes Notes (Text): Will keep pt NPO cont IVF hydration cont Lovenox for now however will keep an eye on the Platelet and INR start PPI Surgery on consult No NGT for now as N/V resolved
[2017-03-14] MEDS ORDERED: Latanoprost 0.005% Opht SOUTION OU SCH (22:00)
[2017-03-15] MEDS ORDERED: Potassium Ch 20mEq in D5-1/2NS 1,000 ML IV SCH (00:30)
[2017-03-15 00:56] VITALS: RESP 18
[2017-03-15] MEDS: Potassium Ch 20mEq in D5-1/2NS 1,000 ML IV SCH (03:00)
[2017-03-15] MEDS ORDERED: Levothyroxine 88 MCG TAB PO SCH (07:30)
[2017-03-15 08:06] LABS: BASO % 1.5 % (0.0-2.0); EOS # 0.1 K/uL (0.0-0.7); EOS % 4.2 % (0.0-4.0); HEMATOCRIT 29.8 % (34.0-47.0); LYMPH # 0.6 K/uL (1.0-4.3); LYMPH % 21.6 % (20.0-40.0); MEAN CORPUSCULAR HEMOGLOBIN 24.4 pg (27.0-31.0); MEAN CORPUSCULAR HGB CONC 31.2 g/dL (33.0-37.0); MEAN PLATELET VOLUME 10.4 fl (7.2-11.7); MONO # 0.2 K/uL (0.0-0.8); MONO % 8.5 % (0.0-10.0); NEUT # 1.7 K/uL (1.8-7.0); NEUT % 64.2 % (50.0-75.0); RED CELL DISTRIBUTION WIDTH 16.9 % (11.5-14.5); WHITE BLOOD COUNT 2.7 K/uL (4.8-10.8)
[2017-03-15 08:22] LABS: BLOOD UREA NITROGEN 7 mg/dl (7-17); CALCIUM 8.6 mg/dL (8.4-10.2); CARBON DIOXIDE 22 mmol/L (22-30); CHLORIDE 108 mmol/L (98-107); GFR AFRICAN-AMERICAN > 60; GLUCOSE,RANDOM 137 mg/dL (65-105); POTASSIUM 3.8 MMOL/L (3.6-5.0); SODIUM 141 mmol/l (132-148)
[2017-03-15 08:40] LABS: IRON 21 ug/dL (37-170)
[2017-03-15 09:10] VITALS: BP 113/63; PULSE 72; TEMP 98.5; O2SAT 97
--- NOTE | 2017-03-15 09:22 | CP.PCM.DIS ---
Provider - Provider Date of Admission: 03/14/17 01:33 Attending physician: Sue Clemente DO Primary care physician: Dr. Sravan Hillman Consults: Surgery consult Time Spent in preparation of Discharge (in minutes): 20 Hospital Course - Lab Results Lab Results: Most Recent Lab Values WBC 2.7 K/uL (4.8-10.8) L 03/15/17 06:30 RBC 3.82 Mil/uL (3.80-5.20) 03/15/17 06:30 Hgb 9.3 g/dL (12.0-16.0) L 03/15/17 06:30 Hct 29.8 % (34.0-47.0) L 03/15/17 06:30 MCV 78.0 fl (81.0-99.0) L 03/15/17 06:30 MCH 24.4 pg (27.0-31.0) L 03/15/17 06:30 MCHC 31.2 g/dL (33.0-37.0) L 03/15/17 06:30 RDW 16.9 % (11.5-14.5) H 03/15/17 06:30 Plt Count 101 K/uL (130-400) L 03/15/17 06:30 MPV 10.4 fl (7.2-11.7) 03/15/17 06:30 Neut % (Auto) 64.2 % (50.0-75.0) 03/15/17 06:30 Lymph % (Auto) 21.6 % (20.0-40.0) 03/15/17 06:30 [place] % (Auto) 8.5 % (0.0-10.0) 03/15/17 06:30 Eos % (Auto) 4.2 % (0.0-4.0) H 03/15/17 06:30 Baso % (Auto) 1.5 % (0.0-2.0) 03/15/17 06:30 Neut # 1.7 K/uL (1.8-7.0) L 03/15/17 06:30 Lymph # 0.6 K/uL (1.0-4.3) L 03/15/17 06:30 [place] # 0.2 K/uL (0.0-0.8) 03/15/17 06:30 Eos # 0.1 K/uL (0.0-0.7) 03/15/17 06:30 Baso # 0.0 K/uL (0.0-0.2) 03/15/17 06:30 PT 13.9 Seconds (9.8-13.1) H 03/13/17 23:31 INR 1.3 (0.9-1.2) H 03/13/17 23:31 APTT 33.8 Seconds (25.6-37.1) 03/13/17 23:31 Sodium 141 mmol/l (132-148) 03/15/17 06:30 Potassium 3.8 MMOL/L (3.6-5.0) 03/15/17 06:30 Chloride 108 mmol/L (98-107) H 03/15/17 06:30 Carbon Dioxide 22 mmol/L (22-30) 03/15/17 06:30 Anion Gap 15 (10-20) 03/15/17 06:30 BUN 7 mg/dl (7-17) 03/15/17 06:30 Creatinine 0.6 mg/dL (0.7-1.2) L 03/15/17 06:30 Est GFR ( Amer) > 60 03/15/17 06:30 Est GFR (Non-Af Amer) > 60 03/15/17 06:30 POC Glucose (mg/dL) 116 mg/dL (65-110) H 03/15/17 06:39 Random Glucose 137 mg/dL (65-105) H 03/15/17 06:30 Lactic Acid 1.5 MMOL/L (0.7-2.1) 03/13/17 23:31 Calcium 8.6 mg/dL (8.4-10.2) 03/15/17 06:30 Iron 21 ug/dL (37-170) L 03/15/17 07:30 TIBC 407 ug/dL (250-450) 03/15/17 07:30 % Saturation 5 % (20-55) L 03/15/17 07:30 Total Bilirubin 0.7 mg/dl (0.2-1.3) 03/13/17 23:31 AST 39 U/L (14-36) H 03/13/17 23:31 ALT 34 U/L (9-52) 03/13/17 23:31 Alkaline Phosphatase 107 U/L (38-126) 03/13/17 23:31 Troponin I < 0.0120 ng/mL (0.00-0.120) 03/14/17 06:05 Total Protein 7.9 G/DL (6.3-8.2) 03/13/17 23: Albumin 4.3 g/dL (3.5-5.0) 03/13/17 23: Globulin 3.7 gm/dL (2.2-3.9) 03/13/17 23: Albumin/Globulin Ratio 1.2 (1.0-2.1) 03/13/17 23: Lipase 45 U/L (23-300) 03/13/17 23:31 Urine Color Straw (YELLOW) 03/14/17 00:41 Urine Clarity Clear (Clear) 03/14/17 00:41 Urine pH 7.0 (5.0-8.0) 03/14/17 00:41 Ur Specific [place] < 1.005 (1.003-1.030) 03/14/17 00:41 Urine Protein Negative mg/dL (NEGATIVE) 03/14/17 00:41 Urine Glucose (UA) Neg mg/dL (Normal) 03/14/17 00:41 Urine Ketones Negative mg/dL (NEGATIVE) 03/14/17 00:41 Urine Blood Negative (NEGATIVE) 03/14/17 00:41 Urine Nitrate Negative (NEGATIVE) 03/14/17 00:41 Urine Bilirubin Negative (NEGATIVE) 03/14/17 00:41 Urine Urobilinogen 0.2-1.0 mg/dL (0.2-1.0) 03/14/17 00:41 Ur Leukocyte Esterase Trace Elvia/uL (Negative) 03/14/17 00:41 - Hospital Course Hospital Course: 61 y/o F with PMH of cirrhosis, Colon CA, multiple abdominal surgeries, HTN, IDDMII, hypothyroid admitted for one day history of moderate to severe generalized cramping abdominal pain associated with nausea and one episode of emesis. last BM/flatus on 03/13.Ct abdomen showed partial SBO. patient was admitted in med/surg, kept NPO , started on IVF and pain medication and surgery was consulted . Patient clinically improved with no need for NGT placement. she passed flatus and had BM and her abdominal pain resolved. At this point her SBO resolved so the diet advanced. She is hemodynamically stable . Will discharge patient home. She can follow up with her PMD for her HTN and DM, her instrumentation controls engineer Dr. Morales Mcmahan for her liver cirrhosis and her supervisor vegetable farming for her pancytopenai. Patient agrees with plan of discharge No new prescriptions necessary 1.Small Bowel Obstruction, Hx of multiple abdo surgeries 03/13/17 CT abd pel demonstrated +possible partial SBO, if correlated clinically. +Cirrhotic liver disease and splenomegaly Surgery consulted No NGT No surgical interventions at this time as per surgery Clinically patient improved , passing flatus, had BM and tolerated diet will d/c home 2.HTN stable resume home meds 3.IDDMII stable ACCUCHECKS resume home meds and follow up with PMD 4.Hypothyroid stable continue levothyroxine 88 mg 5.Pancytopenia Chronic CT showed Splenomegaly follow up with her Hem/onc 6.Coagulopathy PT 13.9, INR 1.3 most likely secondary to Chronic live disease 7.Cirrhosis stable Dr. Lopez is patient's GI physician, F/u after d/c 8.Hx Colon CA stable follow up with her hem/onc 9.Obesity BMI 34.9 Lifestyle and diet modification 10.Depression Continue Zoloft 100mg Discharge Exam - Head Exam Head Exam: ATRAUMATIC, NORMAL INSPECTION, NORMOCEPHALIC - Eye Exam Eye Exam: EOMI, Normal appearance, PERRL Pupil Exam: NORMAL ACCOMODATION - ENT Exam ENT Exam: Mucous Membranes Moist, Normal Exam - Neck Exam Neck exam: Full Rom, Normal Inspection - Respiratory Exam Respiratory Exam: Clear to PA & Lateral, NORMAL BREATHING PATTERN. absent: Rales, Rhonchi, Wheezes - Cardiovascular Exam Cardiovascular Exam: REGULAR RHYTHM, RRR, +S1, +S2. absent: JVD - GI/Abdominal Exam GI & Abdominal Exam: Normal Bowel Sounds, Soft. absent: Distended, Guarding, Rebound, Tenderness - Rectal Exam Rectal Exam: Deferred - Extremities Exam Extremities exam: normal capillary refill, normal inspection, pedal pulses present - Back Exam Back exam: NORMAL INSPECTION - Neurological Exam Neurological exam: Alert, CN II-XII Intact, Oriented x3, Reflexes Normal - Psychiatric Exam Psychiatric exam: Normal Affect, Normal Mood - Skin Skin Exam: Dry, Intact, Warm Discharge Plan - Follow Up Plan Condition: STABLE Disposition: HOME/ ROUTINE Patient education suggested?: Yes Instructions: Bowel Obstruction (DC) Referrals: Sravan Hillman MD [Staff Provider] -
[2017-03-15] MEDS: Insulin Lispro (humaLOG) 100 Units/ml Inj SC SCH (09:29)
[2017-03-15] MEDS: Enoxaparin 40 mg Syringe SC SCH (09:29)
--- NOTE | 2017-03-15 10:06 | CP.PCM.PN ---
Subjective - Date & Time of Evaluation Date of Evaluation: 03/15/17 Time of Evaluation: 10:04 - Subjective Subjective: Surgery: DR. Meredith Patient reports bowel movements x2. Requesting for go home. Overall feels better. Objective - Vital Signs/Intake and Output Vital Signs (last 24 hours): Temp Pulse Resp BP Pulse Ox 98.5 F 72 18 113/63 97 03/15/17 09:09 03/15/17 09:09 03/15/17 09:09 03/15/17 09:09 03/15/17 09:09 - Medications Medications: Current Medications Acetaminophen (Tylenol 325mg Tab) 650 mg PO Q6 PRN PRN Reason: Headache Aspirin (Ecotrin) 81 mg PO DAILY [facility] Last Admin: 03/15/17 09:28 Dose: 81 mg Enoxaparin Sodium (Lovenox) 40 mg SC DAILY [facility] PRN Reason: Protocol Last Admin: 03/15/17 09:29 Dose: 40 mg Potassium Chloride/Dextrose/Sod Cl (Potassium Chl 20 Meq In D5-1/2ns) 1,000 mls @ 125 mls/hr IV .Q8H [facility] Stop: 03/16/17 00:27 Last Admin: 03/15/17 03:00 Dose: 125 mls/hr Insulin Human Lispro (Humalog) 0 units SC ACHS [facility] PRN Reason: Protocol Last Admin: 03/15/17 09:29 Dose: Not Given Latanoprost (Xalatan Opht) 1 drop OU HS [facility] Last Admin: 03/14/17 21:21 Dose: 1 drop Levothyroxine Sodium (Synthroid) 88 mcg PO ACB [facility] Last Admin: 03/15/17 06:29 Dose: 88 mcg Morphine Sulfate (Morphine) 2 mg IVP Q6 PRN PRN Reason: Pain, severe (8-10) Last Admin: 03/15/17 06:26 Dose: 2 mg Ondansetron HCl (Zofran Inj) 4 mg IVP Q6 PRN PRN Reason: Nausea/Vomiting Pantoprazole Sodium (Protonix Inj) 40 mg IVP DAILY [facility] Last Admin: 03/15/17 09:29 Dose: 40 mg Sertraline HCl (Zoloft) 100 mg PO HS [facility] Last Admin: 03/14/17 21:25 Dose: Not Given - Labs Labs: 03/15/17 06:30 03/15/17 06:30 PT 13.9 Seconds (9.8-13.1) H 03/13/17 23:31 INR 1.3 (0.9-1.2) H 03/13/17 23:31 APTT 33.8 Seconds (25.6-37.1) 03/13/17 23:31 - Constitutional Appears: Non-toxic, No Acute Distress - Head Exam Head Exam: ATRAUMATIC, NORMOCEPHALIC - Eye Exam Eye Exam: EOMI, Normal appearance - ENT Exam ENT Exam: Mucous Membranes Moist - Respiratory Exam Respiratory Exam: NORMAL BREATHING PATTERN. absent: Respiratory Distress - Cardiovascular Exam Cardiovascular Exam: REGULAR RHYTHM. absent: Tachycardia - GI/Abdominal Exam GI & Abdominal Exam: Soft. absent: Distended, Guarding, Tenderness, Rebound - Neurological Exam Neurological Exam: Alert, Awake - Psychiatric Exam Psychiatric exam: Normal Affect, Normal Mood - Skin Skin Exam: Dry, Normal Color, Warm Assessment and Plan - Assessment and Plan (Free Text) Assessment: 61 y/o female w/ extensive surgical history w/ recurrent SBO, resolved Plan: -CLD then ADAT -encourage OOB -symptoms control -no acute surgical intervention at this time -d/w Dr. Viri Ambrose PGY3
[2017-03-17 17:45] LABS: FOLATE > 20.0 ng/mL
== END 2017-03-15 14:29 | disposition home or self-care (01) | DRG 180 ==
LOC: H.ER 21:42 → H.ERHOLD 03-14 01:33 → H.MEDSURG1 03-14 03:03
PROVIDERS: ADMIT Student in an Organized Health Care Education/Training Program; ATTEND Student in an Organized Health Care Education/Training Program
DX: K56.60 Unspecified intestinal obstruction (principal); D61.818 Other pancytopenia; D68.9 Coagulation defect, unspecified; I10 Essential (primary) hypertension; E11.9 Type 2 diabetes mellitus without complications; D64.9 Anemia, unspecified; K74.60 Unspecified cirrhosis of liver; Z85.038 Personal history of other malignant neoplasm of large intestine; E03.9 Hypothyroidism, unspecified; E66.9 Obesity, unspecified; Z68.34 Body mass index [BMI] 34.0-34.9, adult; E78.00 Pure hypercholesterolemia, unspecified; E78.5 Hyperlipidemia, unspecified; F32.9 Major depressive disorder, single episode, unspecified; H40.9 Unspecified glaucoma; I25.10 Atherosclerotic heart disease of native coronary artery without angina pectoris; J45.909 Unspecified asthma, uncomplicated; K21.9 Gastro-esophageal reflux disease without esophagitis; Z79.4 Long term (current) use of insulin; Z79.82 Long term (current) use of aspirin; Z79.899 Other long term (current) drug therapy; Z90.49 Acquired absence of other specified parts of digestive tract; Z93.3 Colostomy status; F41.9 Anxiety disorder, unspecified; H26.9 Unspecified cataract; J40 Bronchitis, not specified as acute or chronic; R11.2 Nausea with vomiting, unspecified

== ENCOUNTER 2017-07-02 21:45 | Inpatient (IN) | payer OTHER ==
[2017-07-02 21:45] VITALS: BMI 40.2
[2017-07-02] MEDS ORDERED: Sodium Chloride 0.9% 500 ML IV STA (22:08)
--- NOTE | 2017-07-02 22:17 | ED PDOC ---
HPI: Chest Pain Time Seen by Provider: 07/02/17 22:08 Chief Complaint (Nursing): Chest Pain Chief Complaint (Provider): Chest pain History Per: Patient History/Exam Limitations: no limitations Onset/Duration Of Symptoms: Days (3 hrs) Current Symptoms Are (Timing): Still Present Additional Complaint(s): Pt. with chest pain, dyspnea for 3 hrs. Feels weakness all over. No headaches. Has mild light-headedness. No abd pain, nausea, vomit, leg pain, numbness, tingles. in past 5 days told she has a hemoglobin of 5 and she should come to the hospital. PCP: Dr. Sravan Hillman. Past Medical History Reviewed: Nursing Documentation, Vital Signs Vital Signs: Last Vital Signs Temp 98.0 F 07/02/17 21:49 Pulse 85 07/02/17 21:49 Resp 16 07/02/17 21:49 BP 148/76 07/02/17 21:49 Pulse Ox 100 07/02/17 22:33 - Medical History PMH: Anemia, Anxiety, Asthma, Bronchitis, Depression, Diabetes, HTN, Hypercholesterolemia, Hyperlipidemia Denies: Hepatitis, HIV, Seizures, Sexually Transmitted Disease - Surgical History Surgical History: Appendectomy, Cholecystectomy - Family History Family History: States: Unknown Family Hx - Social History Current smoker - smoking cessation education provided: No Alcohol: None Drugs: Denies - Home Medications Home Medications: Ambulatory Orders Medication Instructions Recorded Enalapril Maleate [Vasotec] 5 mg PO DAILY 03/14/17 Gabapentin [Neurontin] 300 mg PO TID 03/14/17 Insulin Aspart, Recombinant 15 unit SQ DAILY 03/14/17 [Novolog] Insulin Glargine, Recombina 34 unit SQ HS 03/14/17 [Lantus] Levothyroxine [Synthroid] 100 mcg PO DAILY 03/14/17 Magnesium PO DAILY 03/14/17 Nitroglycerin [Nitrostat] 0.4 mg SL Q5MIN PRN 03/14/17 - Allergies Allergies/Adverse Reactions: Allergies Allergy/AdvReac Type Severity Reaction Status Date / Time No Known Allergies Allergy Verified 07/02/17 21:49 Review of Systems ROS Statement: Except As Marked, All Systems Reviewed And Found Negative Constitutional: Positive for: Weakness Cardiovascular: Positive for: Chest Pain Respiratory: Positive for: Shortness of Breath Neurological: Positive for: Weakness, Dizziness Physical Exam - Reviewed Nursing Documentation Reviewed: Yes Vital Signs Reviewed: Yes - Physical Exam Appears: Positive for: Non-toxic, No Acute Distress Head Exam: Positive for: ATRAUMATIC, NORMAL INSPECTION, NORMOCEPHALIC Skin: Positive for: Normal Color, Warm, DRY Eye Exam: Positive for: EOMI, Normal appearance, PERRL ENT: Positive for: Normal ENT Inspection Neck: Positive for: Normal, Painless ROM Cardiovascular/Chest: Positive for: Regular Rate, Rhythm Respiratory: Positive for: CNT, Normal Breath Sounds Gastrointestinal/Abdominal: Positive for: Normal Exam, Bowel Sounds, Soft. Negative for: Tenderness Back: Positive for: Normal Inspection. Negative for: L CVA Tenderness, R CVA Tenderness Extremity: Positive for: Normal ROM. Negative for: Tenderness, Pedal Edema Neurologic/Psych: Positive for: Alert, Oriented - ECG ECG Rhythm: Positive for: Normal QRS, Sinus Rhythm, ST/T Changes, Nonspecific Changes O2 Sat by Pulse Oximetry: 100 Pulse Ox Interpretation: Normal - Progress ED Course And Treament: 000: Dr. Sellers to take over care. Fu on labs and imaging. Disposition - Clinical Impression Clinical Impression: Acute chest pain - Patient ED Disposition Is Patient to be Admitted: Transfer of Care - Disposition Disposition Time: 00:11 Condition: STABLE Forms: Digg (Palestinian) Patient Signed Over To: Shashi Sellers
[2017-07-03 00:26] LABS: ALB/GLOB RATIO 1.1 (1.0-2.1); ALBUMIN 3.8 g/dL (3.5-5.0); ALT/SGPT 25 U/L (9-52); AST/SGOT 32 U/L (14-36); BLOOD UREA NITROGEN 12 mg/dl (7-17); CALCIUM 8.4 mg/dL (8.4-10.2); GFR AFRICAN-AMERICAN > 60; GFR NON-AFRICAN AMERICAN > 60
[2017-07-03 00:30] LABS: BASO % 1.5 % (0.0-2.0); EOS # 0.1 K/uL (0.0-0.7); LYMPH # 0.7 K/uL (1.0-4.3); LYMPH % 24.9 % (20.0-40.0); MEAN CELL VOLUME 70.5 fl (81.0-99.0); MEAN CORPUSCULAR HEMOGLOBIN 21.4 pg (27.0-31.0); MEAN CORPUSCULAR HGB CONC 30.4 g/dL (33.0-37.0); MEAN PLATELET VOLUME 10.5 fl (7.2-11.7); MONO # 0.2 K/uL (0.0-0.8); MONO % 6.7 % (0.0-10.0); NEUT # 1.7 K/uL (1.8-7.0); NEUT % 62.9 % (50.0-75.0); NRBC % 0.3 % (0.0-0.0); RBC 2.78 Mil/uL (3.80-5.20); RED CELL DISTRIBUTION WIDTH 16.4 % (11.5-14.5); WHITE BLOOD COUNT 2.6 K/uL (4.8-10.8)
[2017-07-03 00:36] LABS: B-TYPE NATRIURETIC PEPTIDE 240 pg/ml (0-900)
[2017-07-03 00:42] LABS: INR 1.2 (0.9-1.2); PARTIAL THROMBOPLASTIN TIME 29.2 Seconds (25.6-37.1); PROTHROMBIN TIME 12.8 Seconds (9.8-13.1)
--- NOTE | 2017-07-03 01:06 | ED PDOC ---
- Laboratory Results Result Diagrams: 07/02/17 23:10 07/02/17 23:10 - ECG O2 Sat by Pulse Oximetry: 100 Medical Decision Making Medical Decision Making: Time: 00:00 --Patient signed over to me by Dr. Goodman pending labs and imaging. Time: 1:00 Pt. has profound anemia, given CP and symptoms, will admit for transfusion in Telemetry. Scribe Attestation: Documented by Glenn Flynn, acting as a scribe for Shashi Sellers MD. Provider Scribe Attestation: All medical record entries made by the Scribe were at my direction and personally dictated by me. I have reviewed the chart and agree that the record accurately reflects my personal performance of the history, physical exam, medical decision making, and the department course for this patient. I have also personally directed, reviewed, and agree with the discharge instructions and disposition. Disposition - Clinical Impression Clinical Impression: Acute chest pain, Anemia - POA Present On Arrival: None - Disposition Disposition: Admitted as In-Patient Disposition Time: 01:00 Condition: IMPROVED
[2017-07-03] MEDS ORDERED: DiphenhydrAMINE 50 mg/ml Inj IVP STA (05:56)
[2017-07-03 08:11] LABS: SQUAMOUS EPITHIAL < 1 /hpf (0-5); URINE BACTERIA RARE (<OCC); URINE BILIRUBIN NEGATIVE (NEGATIVE); URINE BLOOD NEGATIVE (NEGATIVE); URINE CLARITY CLEAR (Clear); URINE COLOR YELLOW (YELLOW); URINE GLUCOSE (UA) NEG (Normal); URINE LEUKOCYTE ESTERASE SMALL Leu/uL (Negative); URINE NITRATE NEGATIVE (NEGATIVE); URINE PROTEIN NEGATIVE (NEGATIVE); URINE UROBILINOGEN 0.2-1.0 mg/dL (0.2-1.0)
[2017-07-03 08:20] LABS: ALBUMIN 3.2 g/dL (3.5-5.0); ALT/SGPT 27 U/L (9-52); AST/SGOT 26 U/L (14-36); BLOOD UREA NITROGEN 10 mg/dl (7-17); CALCIUM 8.5 mg/dL (8.4-10.2); GFR AFRICAN-AMERICAN > 60; GFR NON-AFRICAN AMERICAN > 60
[2017-07-03 08:22] LABS: ALB/GLOB RATIO 0.9 (1.0-2.1)
--- NOTE | 2017-07-03 08:24 | CARD ---
APPROVED REPORT EKG Measurement Heart [id number] <Conclusion> Normal sinus rhythm Nonspecific ST and T wave abnormality Abnormal ECG
--- NOTE | 2017-07-03 08:53 | CP.PCM.HP ---
Addendum entered and electronically signed by Shima Juarez MD 07/04/17 11 :31: Patient's chest pain was likely due to hypertensive urgency. Original Note: <Shima Juarez - Last Filed: 07/03/17 12:22> History of Present Illness - History of Present Illness History of Present Illness: 61 yr old F presented to ED with compliant of chest pain and SOB x 3hrs. PMHx includes colon cancer s/p resection and chemotherapy in 2005, chronic anemia requiring multiple blood transfusions and IV iron treatments, hypothyroidism, cirrhosis, IDDM type 2, HTN, asthma and anxiety. Associated symptoms are overall weakness and malaise. Patient reports her PMD called her and told her to come to the ED yesterday because her hemoglobin was 5.0 on recent blood work. Denies headache, palpitations, syncope, nausea, vomiting, diarrheam hematuria, hematochezia or abdominal pain. Patient reports GI workup revealed normal upper endoscopy and colonoscopy. PMD: Sravan Schaffer Specialists: Dr. Jay- heme/onc, Dr. Lopez- GI, Dr. Hopkins-code and test clerk PMHx: colon cancer s/p resection and chemotherapy in 2005, chronic anemia requiring multiple blood transfusions and IV iron treatments, hypothyroidism, IDDM type 2, cirrhosis, HTN, asthma and anxiety SurgHx: colon resection, appendectomy, cholecystectomy, hernia repair FMHx: noncontributory SocHx: denies tobacco, Etoh or drugs Medications: see medication reconciliation Allergies: NKDA Present on Admission - Present on Admission Any Indicators Present on Admission: No History of DVT/PE: No History of Uncontrolled Diabetes: No Urinary Catheter: No Decubitus Ulcer Present: No History Surgical Site Infection Following: None Review of Systems - Review of Systems All systems: reviewed and no additional remarkable complaints except (except for what is mentioned in the HPI) - Constitutional Constitutional: Malaise. absent: Chills - EENT Eyes: absent: Blurred Vision, Change in Vision Ears: absent: Dizziness Nose/Mouth/Throat: absent: Nasal Congestion, Nasal Discharge - Cardiovascular Cardiovascular: Chest Pain, Dyspnea. absent: Pedal Edema, Rapid Heart Rate - Respiratory Respiratory: absent: Hemoptysis - Gastrointestinal Gastrointestinal: absent: Diarrhea, Nausea, Vomiting - Genitourinary Genitourinary: absent: Difficulty Urinating, Dysuria, Hematuria - Musculoskeletal Musculoskeletal: absent: Arthralgias - Integumentary Integumentary: absent: Bleeding Lesions - Neurological Neurological: Weakness. absent: Numbness - Psychiatric Psychiatric: absent: Confusion - Endocrine Endocrine: absent: Polydipsia, Polyphagia, Polyuria - Hematologic/Lymphatic Hematologic: absent: Easy Bleeding, Easy Bruising Past Patient History - Past Medical History & Family History Past Medical History?: Yes - Past Social History Smoking Status: Never Smoked - CARDIAC Hx Cardiac Disorders: Yes Hx Hypotension: Yes - PULMONARY Hx Respiratory Disorders: Yes Hx Asthma: Yes Hx Bronchitis: Yes - NEUROLOGICAL Hx Neurological Disorder: No Hx Seizures: No - HEENT Hx HEENT Problems: No - RENAL Hx Chronic Kidney Disease: No - ENDOCRINE/METABOLIC Hx Endocrine Disorders: Yes Hx Diabetes Mellitus Type 2: Yes - HEMATOLOGICAL/ONCOLOGICAL Hx Blood Disorders: Yes Hx AIDS: No Hx Anemia: Yes Hx Human Immunodeficiency Virus (HIV): No - INTEGUMENTARY Hx Dermatological Problems: No - MUSCULOSKELETAL/RHEUMATOLOGICAL Hx Musculoskeletal Disorders: Yes Hx Falls: Yes - GASTROINTESTINAL Hx Gastrointestinal Disorders: Yes Hx Bowel Surgery: Yes Hx Colostomy: Yes (reversed 2008) Hx Gastroesophageal Reflux: Yes Other/Comment: colon ca - GENITOURINARY/GYNECOLOGICAL Hx Genitourinary Disorders: No Hx Sexually Transmitted Disorders: No - PSYCHIATRIC Hx Psychophysiologic Disorder: Yes Hx Anxiety: Yes Hx Depression: Yes Hx Substance Use: No - SURGICAL HISTORY Hx Surgeries: Yes Hx Appendectomy: Yes Hx Cholecystectomy: Yes - ANESTHESIA Hx Anesthesia: Yes Hx Anesthesia Reactions: No Hx Malignant Hyperthermia: No Meds Allergies/Adverse Reactions: Allergies Allergy/AdvReac Type Severity Reaction Status Date / Time No Known Allergies Allergy Verified 07/02/17 21:49 Physical Exam - Constitutional Appears: Non-toxic - Head Exam Head Exam: ATRAUMATIC, NORMOCEPHALIC - Eye Exam Eye Exam: EOMI - ENT Exam ENT Exam: Mucous Membranes Moist - Neck Exam Neck exam: Positive for: Full Rom - Respiratory Exam Respiratory Exam: Clear to Auscultation Bilateral, NORMAL BREATHING PATTERN - Cardiovascular Exam Cardiovascular Exam: REGULAR RHYTHM, +S1, +S2 - GI/Abdominal Exam GI & Abdominal Exam: Normal Bowel Sounds, Soft (obese). absent: Tenderness - Extremities Exam Extremities exam: Positive for: full ROM. Negative for: pedal edema - Neurological Exam Neurological exam: Alert, CN II-XII Intact, Oriented x3 - Psychiatric Exam Psychiatric exam: Normal Affect, Normal Mood - Skin Skin Exam: Dry, Normal Color, Warm Results - Vital Signs Recent Vital Signs: Last Vital Signs Temp 98.1 F 07/03/17 08:38 Pulse 76 07/03/17 08:38 Resp 20 07/03/17 08:38 BP 122/77 07/03/17 08:38 Pulse Ox 98 07/03/17 08:38 - Labs Result Diagrams: 07/02/17 23:10 07/03/17 07:00 Labs: Laboratory Results - last 24 hr 07/02/17 07/02/17 07/02/17 23:10 23:10 23:10 WBC 2.6 L RBC 2.78 L Hgb 6.0 L* D Hct 19.6 L MCV 70.5 L D MCH 21.4 L MCHC 30.4 L RDW 16.4 H Plt Count 108 L MPV 10.5 Neut % (Auto) 62.9 Lymph % (Auto) 24.9 Alger % (Auto) 6.7 Eos % (Auto) 4.0 Baso % (Auto) 1.5 Neut # 1.7 L Lymph # 0.7 L Alger # 0.2 Eos # 0.1 Baso # 0.0 PT INR APTT Sodium 139 Potassium 4.1 Chloride 105 Carbon Dioxide 22 Anion Gap 16 BUN 12 Creatinine 0.7 Est GFR ( Amer) > 60 Est GFR (Non-Af Amer) > 60 POC Glucose (mg/dL) Random Glucose 255 H Calcium 8.4 Total Bilirubin 0.4 AST 32 ALT 25 Alkaline Phosphatase 76 Troponin I < 0.0120 NT-Pro-B Natriuret Pep 240 Total Protein 7.4 Albumin 3.8 Globulin 3.5 Albumin/Globulin Ratio 1.1 Urine Color Urine Clarity Urine pH Ur Specific Barnum Urine Protein Urine Glucose (UA) Urine Ketones Urine Blood Urine Nitrate Urine Bilirubin Urine Urobilinogen Ur Leukocyte Esterase Urine RBC (Auto) Urine Microscopic WBC Ur Squamous Epith Cells Urine Bacteria Blood Type A POSITIVE Antibody Screen Negative Crossmatch See Detail Reaction Clerical Check Pre-Trans Bld Appearanc Pre-Trans EITAN Post-Trans Spec Appear Post-Trans EITAN BBK History Checked Patient has bt 07/02/17 07/03/17 07/03/17 23:10 05:45 07:00 WBC RBC Hgb Hct MCV MCH MCHC RDW Plt Count MPV Neut % (Auto) Lymph % (Auto) Alger % (Auto) Eos % (Auto) Baso % (Auto) Neut # Lymph # Alger # Eos # Baso # PT 12.8 INR 1.2 APTT 29.2 Sodium Potassium Chloride Carbon Dioxide Anion Gap BUN Creatinine Est GFR ( Amer) Est GFR (Non-Af Amer) POC Glucose (mg/dL) 67 Random Glucose Calcium Total Bilirubin AST ALT Alkaline Phosphatase Troponin I NT-Pro-B Natriuret Pep Total Protein Albumin Globulin Albumin/Globulin Ratio Urine Color Yellow Urine Clarity Clear Urine pH 7.0 Ur Specific Barnum 1.010 Urine Protein Negative Urine Glucose (UA) Neg Urine Ketones Negative Urine Blood Negative Urine Nitrate Negative Urine Bilirubin Negative Urine Urobilinogen 0.2-1.0 Ur Leukocyte Esterase Small Urine RBC (Auto) < 1 Urine Microscopic WBC 9 H Ur Squamous Epith Cells < 1 Urine Bacteria Rare Blood Type Antibody Screen Crossmatch Reaction Clerical Check Pre-Trans Bld Appearanc Pre-Trans EITAN Post-Trans Spec Appear Post-Trans EITAN BBK History Checked 07/03/17 07/03/17 07:00 07:35 WBC RBC Hgb Hct MCV MCH MCHC RDW Plt Count MPV Neut % (Auto) Lymph % (Auto) Alger % (Auto) Eos % (Auto) Baso % (Auto) Neut # Lymph # Alger # Eos # Baso # PT INR APTT Sodium 146 Potassium 3.7 Chloride 106 Carbon Dioxide 25 Anion Gap 19 BUN 10 Creatinine 0.6 L Est GFR ( Amer) > 60 Est GFR (Non-Af Amer) > 60 POC Glucose (mg/dL) Random Glucose 92 Calcium 8.5 Total Bilirubin 0.6 AST 26 ALT 27 Alkaline Phosphatase 67 Troponin I NT-Pro-B Natriuret Pep Total Protein 6.6 Albumin 3.2 L Globulin 3.4 Albumin/Globulin Ratio 0.9 L Urine Color Urine Clarity Urine pH Ur Specific Barnum Urine Protein Urine Glucose (UA) Urine Ketones Urine Blood Urine Nitrate Urine Bilirubin Urine Urobilinogen Ur Leukocyte Esterase Urine RBC (Auto) Urine Microscopic WBC Ur Squamous Epith Cells Urine Bacteria Blood Type Antibody Screen Crossmatch Reaction Clerical Check No discrepancy Pre-Trans Bld Appearanc No hemolysis Pre-Trans EITAN Negative Post-Trans Spec Appear No hemolysis Post-Trans EITAN Negative BBK History Checked Assessment & Plan - Assessment and Plan (Free Text) Assessment: 61 yr old F admitted for symptomatic anemia. 1. Chest pain -acute, resolved, likely secondary to symptomatic anemia -EKG NSR, troponin negative -admit to telemetry 2. Symptomatic anemia -acute on chronic, likely secondary to anemia of chronic disease with iron deficiency anemia secondary to hx of colon cancer -Hgb 6.0 on admission. EKG NSR, iron profile consistent with SHENG and anemia -patient is s/p transfusion of 1 unit pRBC's administered in ED -admit to telemetry -administer additional unit of pRBC's -f/u repeat CBC 3. HTN -chronic, controlled -continue home meds 4. Hypothyroidism -chronic, controlled -continue home meds -f/u TSH 5. DVT prophylaxis -SCD's, Plavix and ASA - Date & Time Date: 07/03/17 Time: 10:00 <Corby Quispe - Last Filed: 07/06/17 21:05> Results - Vital Signs Recent Vital Signs: Last Vital Signs Temp 97.7 F 07/06/17 12:15 Pulse 80 07/06/17 12:15 Resp 18 07/06/17 12:15 BP 101/65 07/06/17 12:15 Pulse Ox 98 07/06/17 12:15 - Labs Result Diagrams: 07/06/17 05:30 07/06/17 05:30 Labs: Laboratory Results - last 24 hr 07/05/17 07/06/17 07/06/17 20:56 05:27 05:30 WBC 3.9 L RBC 3.88 Hgb 9.2 L Hct 28.8 L MCV 74.2 L MCH 23.7 L MCHC 32.0 L RDW 18.8 H Plt Count 100 L MPV 10.1 Neut % (Auto) 63.2 Lymph % (Auto) 22.7 Alger % (Auto) 7.4 Eos % (Auto) 5.7 H Baso % (Auto) 1.0 Neut # 2.5 Lymph # 0.9 L Alger # 0.3 Eos # 0.2 Baso # 0.0 Sodium Potassium Chloride Carbon Dioxide Anion Gap BUN Creatinine Est GFR ( Amer) Est GFR (Non-Af Amer) POC Glucose (mg/dL) 208 H 149 H Random Glucose Calcium Total Bilirubin AST ALT Alkaline Phosphatase Total Protein Albumin Globulin Albumin/Globulin Ratio Carcinoembryonic Ag 07/06/17 07/06/17 05:30 10:49 WBC RBC Hgb Hct MCV MCH MCHC RDW Plt Count MPV Neut % (Auto) Lymph % (Auto) Alger % (Auto) Eos % (Auto) Baso % (Auto) Neut # Lymph # Alger # Eos # Baso # Sodium 141 Potassium 4.1 Chloride 104 Carbon Dioxide 27 Anion Gap 14 BUN 15 Creatinine 0.8 Est GFR ( Amer) > 60 Est GFR (Non-Af Amer) > 60 POC Glucose (mg/dL) 211 H Random Glucose 169 H Calcium 8.9 Total Bilirubin 0.9 AST 30 ALT 28 Alkaline Phosphatase 71 Total Protein 7.2 Albumin 3.5 Globulin 3.7 Albumin/Globulin Ratio 0.9 L Carcinoembryonic Ag 1.8 Assessment & Plan - Assessment and Plan (Free Text) Plan: I was present during evaluation and discussed with Dr Juarez re plans of care and management. Corby Quispe M.D.
[2017-07-03] MEDS ORDERED: Patient's Own Med (Ranitidine Hcl [Acid Reducer] 150 mg) PO SCH (09:00)
[2017-07-03] MEDS ORDERED: INSULIN ASPART RECOMBINANT 15 UNIT SQ SCH (09:00)
--- NOTE | 2017-07-03 09:34 | RAD ---
HISTORY: dyspnea COMPARISON: Chest radiograph dated 03/14/2017 FINDINGS: LUNGS: Prominence of the pulmonary vasculature may be secondary to AP technique and/or pulmonary vascular congestion no focal consolidation. PLEURA: No significant pleural effusion identified, no pneumothorax apparent. CARDIOVASCULAR: Cardiomediastinal silhouette stably prominent. OSSEOUS STRUCTURES: Left humeral head postsurgical changes redemonstrated. Unchanged. VISUALIZED UPPER ABDOMEN: Normal. OTHER FINDINGS: None. IMPRESSION: Prominence of the pulmonary vasculature may be secondary to AP technique and/or pulmonary vascular congestion. No focal consolidation or pleural effusion.
[2017-07-03] MEDS: Insulin Lispro (humaLOG) 100 Units/ml Inj SC SCH (10:03)
[2017-07-03 10:27] LABS: IRON 18 ug/dL (37-170)
[2017-07-03 10:36] LABS: TOTAL IRON BINDING CAPACITY 463 ug/dL (250-450)
[2017-07-03 10:41] LABS: % IRON SATURATION 4 % (20-55)
[2017-07-03] MEDS: Magnesium Oxide 400 mg Tab UD PO SCH (15:40)
[2017-07-03] MEDS ORDERED: INSULIN GLARGINE SQ SCH (22:00)
[2017-07-03] MEDS: Insulin Detemir 100 Units/ml Inj SC SCH (23:03)
[2017-07-04 05:57] LABS: MEAN CELL VOLUME 73.1 fl (81.0-99.0); MEAN CORPUSCULAR HEMOGLOBIN 22.2 pg (27.0-31.0); MEAN CORPUSCULAR HGB CONC 30.4 g/dL (33.0-37.0); RBC 3.13 Mil/uL (3.80-5.20); RED CELL DISTRIBUTION WIDTH 16.7 % (11.5-14.5); WHITE BLOOD COUNT 3.3 K/uL (4.8-10.8)
--- NOTE | 2017-07-04 07:44 | PQF GENQUE ---
This form is a permanent part of the medical record 07/04/17 Dr. Quispe, Would you please clarify if there is an associated diagnosis or not to go along with the following findings. Admitted with chest pain and noted to be anemic. WBC 2.6 H&H .6 Platelets 89,000 Clarification of your documentation is requested to better reflect the severity of illness and intensity of treatment of your patient. Indicators present [] Specify: [] [] Specify: [] [] Specify: [] [] Specify: [] Location in the medical record that reflects the above clinical findings: [] Treatment Provided: [] PHYSICIAN'S RESPONSE Based on your medical judgment of the clinical indicators outlined above please clarify the following: [] Practitioner response [] If unable to determine, please check the box, sign and date. Present On Admission (POA) Indicator: [] Present at the time of admission [] Not present at the time of admission [] Clinically Undetermined In responding to this query, please exercise your independent professional judgment. The fact that a question is asked does not imply that any particular answer is desired or expected. Thank you for your clarification on this documentation. If you have any questions please call:ext [phone] * Thank you, Bree Cuellar RN CDMP [facility]
[2017-07-04] MEDS: Insulin Lispro (humaLOG) 100 Units/ml Inj SC SCH (08:47)
[2017-07-04] MEDS: Magnesium Oxide 400 mg Tab UD PO SCH (08:48)
[2017-07-04 10:01] LABS: FERRITIN 6.2 ng/Ml (11.1-264.0)
--- NOTE | 2017-07-04 11:14 | CP.PCM.PN ---
<Shima Juarez - Last Filed: 07/04/17 11:08> Subjective - Date & Time of Evaluation Date of Evaluation: 07/04/17 Time of Evaluation: 11:08 - Subjective Subjective: Patient seen and examined at bedside with attending-Dr. Quispe. Awake, alert, with minimal improvement in weakness. Discussed with patient her hemoglobin did not increase sufficiently s/p 2 units of pRBC's yesterday. Patient agreed to transfusion of 2 additional pRBC's units and a GI bleeding scan. Objective - Vital Signs/Intake and Output Vital Signs (last 24 hours): Temp Pulse Resp BP Pulse Ox 98.2 F 82 18 101/61 98 07/04/17 08:00 07/04/17 08:00 07/04/17 08:00 07/04/17 08:00 07/04/17 08:00 - Medications Medications: Current Medications Clopidogrel Bisulfate (Plavix) 75 mg PO DAILY [facility] Last Admin: 07/04/17 08:49 Dose: 75 mg Enalapril Maleate (Vasotec) 5 mg PO DAILY [facility] Last Admin: 07/04/17 08:50 Dose: 5 mg Famotidine (Pepcid) 20 mg PO HS [facility] Last Admin: 07/03/17 21:28 Dose: 20 mg Gabapentin (Neurontin) 300 mg PO TID [facility] Last Admin: 07/04/17 08:49 Dose: 300 mg Insulin Detemir (Levemir) 34 units SC HS [facility] Last Admin: 07/03/17 23:03 Dose: 34 units Insulin Human Lispro (Humalog) 15 units SC DAILY [facility] Last Admin: 07/04/17 08:47 Dose: 15 u Levothyroxine Sodium (Levothroid) 137 mcg PO DAILY@0630 [facility] Last Admin: 07/04/17 06:23 Dose: 137 mcg Magnesium Oxide (Mag-Ox) 400 mg PO DAILY [facility] Last Admin: 07/04/17 08:48 Dose: 400 mg Mirtazapine (Remeron) 15 mg PO DAILY [facility] Last Admin: 07/04/17 08:49 Dose: 15 mg Nitroglycerin (Nitrostat Sl Tab) 0.4 mg SL Q5MIN PRN PRN Reason: Other Ondansetron HCl (Zofran Inj) 4 mg IVP Q6 PRN PRN Reason: Nausea/Vomiting - Labs Labs: 07/04/17 04:16 07/03/17 07:00 PT 12.8 Seconds (9.8-13.1) 07/02/17 23:10 INR 1.2 (0.9-1.2) 07/02/17 23:10 APTT 29.2 Seconds (25.6-37.1) 07/02/17 23:10 - Constitutional Appears: Non-toxic - Head Exam Head Exam: ATRAUMATIC, NORMOCEPHALIC - Eye Exam Eye Exam: EOMI - ENT Exam ENT Exam: Mucous Membranes Moist - Neck Exam Neck Exam: Full ROM - Respiratory Exam Respiratory Exam: Clear to Ausculation Bilateral, NORMAL BREATHING PATTERN - Cardiovascular Exam Cardiovascular Exam: REGULAR RHYTHM, +S1, +S2 - GI/Abdominal Exam GI & Abdominal Exam: Soft, Normal Bowel Sounds. absent: Tenderness - Extremities Exam Extremities Exam: Full ROM. absent: Pedal Edema - Neurological Exam Neurological Exam: Alert, Awake, CN II-XII Intact, Oriented x3 - Psychiatric Exam Psychiatric exam: Normal Affect, Normal Mood - Skin Skin Exam: Dry, Normal Color, Warm Assessment and Plan - Assessment and Plan (Free Text) Assessment: 61 yr old F admitted for symptomatic anemia. 1. Symptomatic anemia -acute on chronic, improving, likely secondary to anemia of chronic disease with iron deficiency anemia secondary to hx of colon cancer -Hgb 6.0 on admission. EKG NSR, iron profile consistent with SHENG and anemia -Hgb increased to 7.0 s/p s/p transfusion of 2 unit pRBC's -administer 2 additional units of pRBC's , GI bleeding scan ordered -f/u repeat CBC 3. HTN -chronic, controlled -continue home meds 4. Hypothyroidism -chronic, controlled -continue home meds -f/u TSH 5. DVT prophylaxis -SCD's, Plavix, hold ASA for now <Corby Quispe - Last Filed: 07/06/17 21:20> Objective - Vital Signs/Intake and Output Vital Signs (last 24 hours): Temp Pulse Resp BP Pulse Ox 97.7 F 80 18 101/65 98 07/06/17 12:15 07/06/17 12:15 07/06/17 12:15 07/06/17 12:15 07/06/17 12:15 - Labs Labs: 07/06/17 05:30 07/06/17 05:30 PT 12.8 Seconds (9.8-13.1) 07/02/17 23:10 INR 1.2 (0.9-1.2) 07/02/17 23:10 APTT 29.2 Seconds (25.6-37.1) 07/02/17 23:10 Assessment and Plan - Assessment and Plan (Free Text) Plan: I was present during evaluation and discussed with Dr Juarez re plans of care and mgt Corby Quispe M.D.
[2017-07-04 11:35] LABS: IRON 18 ug/dL (37-170)
[2017-07-04 11:43] LABS: % IRON SATURATION 4 % (20-55); TOTAL IRON BINDING CAPACITY 469 ug/dL (250-450)
[2017-07-04] MEDS ORDERED: Lidocaine 1% Inj (20ml) ONE (13:25)
--- NOTE | 2017-07-04 13:44 | PCM.SURG1 ---
Surgeon's Initial Post Op Note - Surgeon's Notes Surgeon: Chilango Arreola MD Special Procedures Technologist: None Type of Anesthesia: Local Pre-Operative Diagnosis: poor IV access Operative Findings: patent right basilic vein. catheter length: 37 cm. catheter tip: cavoatrial junction Post-Operative Diagnosis: same Operation Performed: RUE PICC Insertion Specimen/Specimens Removed: n/a Estimated Blood Loss: EBL {In ML}: 0 Date of Surgery/Procedure: 07/04/17 Time of Surgery/Procedure: 13:43
--- NOTE | 2017-07-04 14:51 | VASCULAR ---
PROCEDURE: PERIPHERALLY INSERTED CENTRAL VENOUS CATHETER INSERTION CLINICAL HISTORY: 61-year-old female with poor IV access requiring blood products is referred to Interventional Radiology for PICC insertion. PROCEDURE: 1. Focused ultrasound of the right upper extremity vasculature. 2. Ultrasound-guided access. 3. Insertion of peripherally inserted central venous catheter. 4. Fluoroscopic localization of catheter tip. PRE-PROCEDURE FINDINGS: 1. Patent right basilic vein. POST-PROCEDURE FINDINGS: 1. Placement of 4 English single-lumen PICC. 2. Catheter length: 37 cm. 3. Catheter tip at cavoatrial junction. INTERVENTIONAL RADIOLOGIST: Chilango Arreola M.D. (the attending was present for the entire procedure) ANESTHESIA: None. MEDICATION: Lidocaine 1% for local subcutaneous analgesia. COMPLICATIONS: None. RADIATION DOSE: Fluoroscopy Time: 11.1 seconds Cumulative Dose: 1.74 mGy PROCEDURE DESCRIPTION AND FINDINGS: The risks, benefits, alternatives and possible complications of the procedure were fully discussed; all questions were answered and informed consent was obtained. The patient was brought into the interventional suite and a pre-procedure 'time-out' was performed. The patient was placed on the fluoroscopy table in the supine position. The right upper extremity was prepped and draped in the usual sterile fashion. Maximum sterile barrier precautions were maintained throughout the entire procedure. Preliminary ultrasound images of the right upper extremity vasculature demonstrate patency of the right basilic vein. Following subcutaneous infiltration of 1% lidocaine for local analgesia, under ultrasound guidance, a 21-gauge needle was advanced into the right basilic vein with real-time visualization of needle entry. The ultrasound images were permanently recorded and submitted to the PACS. A 0.018 guidewire was advanced centrally to the cavoatrial junction. A 4.5 English peel-away sheath was advanced over the guidewire. After obtaining length measurement, a 4 English single-lumen PICC was placed with the tip of the catheter at the cavoatrial junction. The total length of the catheter is 37 cm. The hub of the PICC was secured to the skin using a sterile adhesive bandage. The patient tolerated the procedure well without immediate post-procedure complications and was transferred back to the floor in stable condition. IMPRESSION: SUCCESSFUL INSERTION OF RIGHT UPPER EXTREMITY PICC. PICC OK TO USE.
[2017-07-04] MEDS: Insulin Detemir 100 Units/ml Inj SC SCH (21:52)
[2017-07-05] MEDS: Insulin Lispro (humaLOG) 100 Units/ml Inj SC SCH (08:39)
[2017-07-05] MEDS: Magnesium Oxide 400 mg Tab UD PO SCH (08:48)
[2017-07-05 09:07] LABS: HEMOGLOBIN 9.5 g/dL (12.0-16.0); MEAN CELL VOLUME 74.9 fl (81.0-99.0); MEAN CORPUSCULAR HEMOGLOBIN 23.4 pg (27.0-31.0); MEAN CORPUSCULAR HGB CONC 31.3 g/dL (33.0-37.0); RBC 4.06 Mil/uL (3.80-5.20); RED CELL DISTRIBUTION WIDTH 18.3 % (11.5-14.5); WHITE BLOOD COUNT 4.1 K/uL (4.8-10.8)
[2017-07-05 15:46] VITALS: RESP 18
[2017-07-05] MEDS ORDERED: Insulin Detemir 100 Units/ml Inj SC SCH (22:00)
[2017-07-06 06:28] LABS: EOS # 0.2 K/uL (0.0-0.7); EOS % 5.7 % (0.0-4.0); HEMOGLOBIN 9.2 g/dL (12.0-16.0); LYMPH # 0.9 K/uL (1.0-4.3); LYMPH % 22.7 % (20.0-40.0); MEAN CELL VOLUME 74.2 fl (81.0-99.0); MEAN CORPUSCULAR HEMOGLOBIN 23.7 pg (27.0-31.0); MEAN PLATELET VOLUME 10.1 fl (7.2-11.7); MONO # 0.3 K/uL (0.0-0.8); MONO % 7.4 % (0.0-10.0); NEUT # 2.5 K/uL (1.8-7.0); NEUT % 63.2 % (50.0-75.0); NRBC % 0.1 % (0.0-0.0); RBC 3.88 Mil/uL (3.80-5.20); RED CELL DISTRIBUTION WIDTH 18.8 % (11.5-14.5); WHITE BLOOD COUNT 3.9 K/uL (4.8-10.8)
[2017-07-06 06:52] LABS: ALB/GLOB RATIO 0.9 (1.0-2.1); ALBUMIN 3.5 g/dL (3.5-5.0); ALT/SGPT 28 U/L (9-52); AST/SGOT 30 U/L (14-36); BLOOD UREA NITROGEN 15 mg/dl (7-17); CALCIUM 8.9 mg/dL (8.4-10.2); GFR AFRICAN-AMERICAN > 60; GFR NON-AFRICAN AMERICAN > 60
[2017-07-06] MEDS: Insulin Lispro (humaLOG) 100 Units/ml Inj SC SCH (09:04)
[2017-07-06] MEDS: Magnesium Oxide 400 mg Tab UD PO SCH (09:05)
[2017-07-06 12:16] VITALS: BP 101/65; PULSE 80; TEMP 97.7; O2SAT 98
--- NOTE | 2017-07-06 21:32 | CP.PCM.PN ---
Subjective - Date & Time of Evaluation Date of Evaluation: 07/05/17 Time of Evaluation: 16:00 - Subjective Subjective: Patient complains of slight dizziness Noted drop in Hgb Noted positive occult blood in stool. received two units of PRBC and hgb today is 9.5 ' Objective - Vital Signs/Intake and Output Vital Signs (last 24 hours): Temp Pulse Resp BP Pulse Ox 97.7 F 80 18 101/65 98 07/06/17 12:15 07/06/17 12:15 07/06/17 12:15 07/06/17 12:15 07/06/17 12:15 - Labs Labs: 07/06/17 05:30 07/06/17 05:30 PT 12.8 Seconds (9.8-13.1) 07/02/17 23:10 INR 1.2 (0.9-1.2) 07/02/17 23:10 APTT 29.2 Seconds (25.6-37.1) 07/02/17 23:10 - Head Exam Head Exam: NORMAL INSPECTION - Eye Exam Eye Exam: Normal appearance - ENT Exam ENT Exam: Mucous Membranes Moist - Respiratory Exam Respiratory Exam: Clear to Ausculation Bilateral - Cardiovascular Exam Cardiovascular Exam: REGULAR RHYTHM - GI/Abdominal Exam GI & Abdominal Exam: Normal Bowel Sounds - Neurological Exam Neurological Exam: CN II-XII Intact, Oriented x3 Assessment and Plan (1) Acute chest pain Status: Acute (2) Anemia Status: Acute (3) Anxiety Status: Acute (4) Hypertension Status: Acute - Assessment and Plan (Free Text) Plan: Con tmeds Cont tx check cbc in am discharge planning
--- NOTE | 2017-07-06 22:15 | CP.PCM.DIS ---
Provider - Provider Date of Admission: 07/03/17 00:38 Attending physician: Corby Quispe MD Time Spent in preparation of Discharge (in minutes): 30 Diagnosis - Discharge Diagnosis (1) Acute chest pain Status: Acute (2) Anemia Status: Acute (3) Anxiety Status: Acute (4) Hypertension Status: Acute Hospital Course - Lab Results Lab Results: Most Recent Lab Values WBC 3.9 K/uL (4.8-10.8) L 07/06/17 05:30 RBC 3.88 Mil/uL (3.80-5.20) 07/06/17 05:30 Hgb 9.2 g/dL (12.0-16.0) L 07/06/17 05:30 Hct 28.8 % (34.0-47.0) L 07/06/17 05:30 MCV 74.2 fl (81.0-99.0) L 07/06/17 05:30 MCH 23.7 pg (27.0-31.0) L 07/06/17 05:30 MCHC 32.0 g/dL (33.0-37.0) L 07/06/17 05:30 RDW 18.8 % (11.5-14.5) H 07/06/17 05:30 Plt Count 100 K/uL (130-400) L 07/06/17 05:30 MPV 10.1 fl (7.2-11.7) 07/06/17 05:30 Neut % (Auto) 63.2 % (50.0-75.0) 07/06/17 05:30 Lymph % (Auto) 22.7 % (20.0-40.0) 07/06/17 05:30 [place] % (Auto) 7.4 % (0.0-10.0) 07/06/17 05:30 Eos % (Auto) 5.7 % (0.0-4.0) H 07/06/17 05:30 Baso % (Auto) 1.0 % (0.0-2.0) 07/06/17 05:30 Neut # 2.5 K/uL (1.8-7.0) 07/06/17 05:30 Lymph # 0.9 K/uL (1.0-4.3) L 07/06/17 05:30 [place] # 0.3 K/uL (0.0-0.8) 07/06/17 05:30 Eos # 0.2 K/uL (0.0-0.7) 07/06/17 05:30 Baso # 0.0 K/uL (0.0-0.2) 07/06/17 05:30 PT 12.8 Seconds (9.8-13.1) 07/02/17 23:10 INR 1.2 (0.9-1.2) 07/02/17 23:10 APTT 29.2 Seconds (25.6-37.1) 07/02/17 23:10 Sodium 141 mmol/l (132-148) 07/06/17 05:30 Potassium 4.1 MMOL/L (3.6-5.0) 07/06/17 05:30 Chloride 104 mmol/L (98-107) 07/06/17 05:30 Carbon Dioxide 27 mmol/L (22-30) 07/06/17 05:30 Anion Gap 14 (10-20) 07/06/17 05:30 BUN 15 mg/dl (7-17) 07/06/17 05:30 Creatinine 0.8 mg/dl (0.7-1.2) 07/06/17 05:30 Est GFR ( Amer) > 60 07/06/17 05:30 Est GFR (Non-Af Amer) > 60 07/06/17 05:30 POC Glucose (mg/dL) 211 mg/dL (65-110) H 07/06/17 10:49 Random Glucose 169 mg/dL (65-105) H 07/06/17 05:30 Calcium 8.9 mg/dL (8.4-10.2) 07/06/17 05:30 Iron 18 ug/dL (37-170) L 07/04/17 11:10 TIBC 469 ug/dL (250-450) H 07/04/17 11:10 % Saturation 4 % (20-55) L 07/04/17 11:10 Ferritin 6.2 ng/Ml (11.1-264.0) L 07/04/17 09:09 Total Bilirubin 0.9 mg/dl (0.2-1.3) 07/06/17 05:30 AST 30 U/L (14-36) 07/06/17 05:30 ALT 28 U/L (9-52) 07/06/17 05:30 Alkaline Phosphatase 71 U/L (38-126) 07/06/17 05:30 Troponin I < 0.0120 ng/mL (0.00-0.120) 07/02/17 23:10 NT-Pro-B Natriuret Pep 240 pg/ml (0-900) 07/02/17 23:10 Total Protein 7.2 G/DL (6.3-8.2) 07/06/17 05:30 Albumin 3.5 g/dL (3.5-5.0) 07/06/17 05:30 Globulin 3.7 gm/dL (2.2-3.9) 07/06/17 05:30 Albumin/Globulin Ratio 0.9 (1.0-2.1) L 07/06/17 05:30 Carcinoembryonic Ag 1.8 ng/mL (0-3.0) 07/06/17 05:30 Vitamin B12 351 pg/mL (239-931) 07/04/17 09:09 Folate 19.0 ng/mL 07/04/17 09:09 Urine Color Yellow (YELLOW) 07/03/17 07:00 Urine Clarity Clear (Clear) 07/03/17 07:00 Urine pH 7.0 (5.0-8.0) 07/03/17 07:00 Ur Specific [place] 1.010 (1.003-1.030) 07/03/17 07:00 Urine Protein Negative mg/dL (NEGATIVE) 07/03/17 07:00 Urine Glucose (UA) Neg mg/dL (Normal) 07/03/17 07:00 Urine Ketones Negative mg/dL (NEGATIVE) 07/03/17 07:00 Urine Blood Negative (NEGATIVE) 07/03/17 07:00 Urine Nitrate Negative (NEGATIVE) 07/03/17 07:00 Urine Bilirubin Negative (NEGATIVE) 07/03/17 07:00 Urine Urobilinogen 0.2-1.0 mg/dL (0.2-1.0) 07/03/17 07:00 Ur Leukocyte Esterase Small Elvia/uL (Negative) 07/03/17 07:00 Urine RBC (Auto) < 1 /hpf (0-3) 07/03/17 07:00 Urine Microscopic WBC 9 /hpf (0-5) H 07/03/17 07:00 Ur Squamous Epith Cells < 1 /hpf (0-5) 07/03/17 07:00 Urine Bacteria Rare (<OCC) 07/03/17 07:00 Stool Occult Blood Positive (NEGATIVE) H 07/04/17 19:00 Blood Type A POSITIVE 07/04/17 14:58 Antibody Screen Negative 07/04/17 14:58 Crossmatch See Detail 07/04/17 14:58 Reaction Clerical Check No discrepancy (NO DISCREPA) 07/03/17 07:35 Pre-Trans Blood Type A POSITIVE 07/03/17 07:35 Pre-Trans Bld Appearanc No hemolysis (NO HEMOLYSI) 07/03/17 07:35 Pre-Trans EITAN Negative (NEGATIVE) 07/03/17 07:35 Post-Trans Blood Type A POSITIVE 07/03/17 07:35 Post-Trans Spec Appear No hemolysis (NO HEMOLYSI) 07/03/17 07:35 Post-Trans EITAN Negative (NEGATIVE) 07/03/17 07:35 Reaction Pathol Review 07/03/17 07:35 BBK History Checked Patient has bt 07/04/17 14:58 - Hospital Course Hospital Course: This is a 61 y/o female with hx of chronic anemia and anxiety admitted for chest pain. troponins were negative. Noted to have severe anemia. has a hx of severe anemia and colon cancer which was treated . outpatient work ups showed no source of recurrent anemia. She was given initially two units of PRBC but brought the Hgb only slightly higher than 7. Hence another two units was transfused and Hgb was monitored. She remained stable and was sent home on ferrous daily and B 12 daily She was advised to follow up with her PMD Dr Sravan Cooley. Discharge Exam - Head Exam Head Exam: NORMAL INSPECTION - Eye Exam Eye Exam: Normal appearance - Respiratory Exam Respiratory Exam: Clear to PA & Lateral, NORMAL BREATHING PATTERN - Cardiovascular Exam Cardiovascular Exam: REGULAR RHYTHM - GI/Abdominal Exam GI & Abdominal Exam: Normal Bowel Sounds - Neurological Exam Neurological exam: CN II-XII Intact - Psychiatric Exam Psychiatric exam: Normal Mood Discharge Plan - Discharge Medications Prescriptions: Ferrous Sulfate [Feosol] 325 mg PO DAILY #30 tab - Follow Up Plan Condition: IMPROVED Disposition: HOME/ ROUTINE Instructions: Iron Rich Diet (DC), Anemia (DC) Additional Instructions: Rx given for ferrous daily and B 12 tab daily advised follow up with Dr Jay and PMD Dr Theron cooley.
== END 2017-07-06 14:15 | disposition home or self-care (01) | DRG 395 ==
LOC: H.ER 21:45 → H.ERHOLD 07-03 00:38 → H.TEL 07-03 02:30
PROVIDERS: ADMIT Family Medicine; ATTEND Family Medicine
PROC: 30233N1 Transfusion of Nonautologous Red Blood Cells into Peripheral Vein, Percutaneous Approach (ICD-10-PCS; 2017-07-03)
PROC: 02HV33Z Insertion of Infusion Device into Superior Vena Cava, Percutaneous Approach (ICD-10-PCS; principal; 2017-07-04)
PROC: B518ZZA Fluoroscopy of Superior Vena Cava, Guidance (ICD-10-PCS; 2017-07-04)
PROC: B548ZZA Ultrasonography of Superior Vena Cava, Guidance (ICD-10-PCS; 2017-07-04)
DX: D50.9 Iron deficiency anemia, unspecified (principal); K74.60 Unspecified cirrhosis of liver; E03.9 Hypothyroidism, unspecified; D63.8 Anemia in other chronic diseases classified elsewhere; E11.9 Type 2 diabetes mellitus without complications; E78.00 Pure hypercholesterolemia, unspecified; E78.5 Hyperlipidemia, unspecified; F41.9 Anxiety disorder, unspecified; I10 Essential (primary) hypertension; J45.909 Unspecified asthma, uncomplicated; K21.9 Gastro-esophageal reflux disease without esophagitis; Z79.4 Long term (current) use of insulin; Z79.899 Other long term (current) drug therapy; Z85.038 Personal history of other malignant neoplasm of large intestine; Z90.49 Acquired absence of other specified parts of digestive tract; Z92.21 Personal history of antineoplastic chemotherapy; Z93.3 Colostomy status; F32.9 Major depressive disorder, single episode, unspecified; F45.9 Somatoform disorder, unspecified

== ENCOUNTER 2017-08-20 10:11 | Day surgery (SDC) | payer OTHER ==
[2017-08-20 10:36] VITALS: BMI 37.2
[2017-08-20 11:22] LABS: INR 1.2 (0.9-1.2); PARTIAL THROMBOPLASTIN TIME 36.8 Seconds (25.6-37.1); PROTHROMBIN TIME 13.2 Seconds (9.8-13.1)
[2017-08-20 11:27] VITALS: RESP 18; O2SAT 100
[2017-08-20] MEDS ORDERED: Lidocaine 1% Inj (20ml) ONE (12:28)
--- NOTE | 2017-08-20 12:55 | CP.SDSHP ---
Same Day Surgery H & P - History Proposed Procedure: PICC Insertion Pre-Op Diagnosis: iron deficiency anemia - Allergies Allergies: Allergies No Known Allergies Allergy (Verified 08/20/17 10:59) itchiness on thighs and legs - Physical Exam Vital Signs: Vital Signs 08/20/17 08/20/17 11:25 12:27 Temperature 97.7 F 97.1 F L Pulse Rate 73 70 Respiratory 18 18 Rate Blood Pressure 105/49 L 122/83 O2 Sat by Pulse 100 Oximetry - Impression Impression: 62 yo female requiring IV iron infusion; plan PICC insertion - Date & Time Date: 08/20/17 Time: 12:30 Short Stay Discharge - Short Stay Discharge Admitting Diagnosis/Reason for Visit: D50.9 Disposition: HOME/ ROUTINE Referrals: Sravan Hillman MD [Primary Care Provider] -
--- NOTE | 2017-08-20 12:56 | PCM.SURG1 ---
Surgeon's Initial Post Op Note - Surgeon's Notes Surgeon: Chilango Arreola MD Extension Worker: None Type of Anesthesia: Local Pre-Operative Diagnosis: iron deficiency anemia Operative Findings: patent left basilic vein. catheter length: 45 cm. catheter tip: cavoatrial junction Post-Operative Diagnosis: same Operation Performed: LUE PICC Insertion Specimen/Specimens Removed: n/a Estimated Blood Loss: EBL {In ML}: 0 Date of Surgery/Procedure: 08/20/17 Time of Surgery/Procedure: 12:56
[2017-08-20 13:11] VITALS: BP 112/77; PULSE 72; TEMP 97.5
--- NOTE | 2017-08-21 08:45 | VASCULAR ---
PROCEDURE: PERIPHERALLY INSERTED CENTRAL VENOUS CATHETER INSERTION CLINICAL HISTORY: 62-year-old female requiring intravenous iron infusion is referred to Interventional Radiology for PICC insertion. COMPARISON: PICC insertion performed 07/04/2017 PROCEDURE: 1. Focused ultrasound of the left upper extremity vasculature. 2. Ultrasound-guided access. 3. Insertion of peripherally inserted central venous catheter. 4. Fluoroscopic localization of catheter tip. PRE-PROCEDURE FINDINGS: 1. Patent left basilic vein. POST-PROCEDURE FINDINGS: 1. Placement of 4 [place] Citizen single-lumen PICC. 2. Catheter length: 45 cm. 3. Catheter tip at cavoatrial junction. INTERVENTIONAL RADIOLOGIST: Chilango Arreola M.D. (the attending was present for the entire procedure) ANESTHESIA: None. MEDICATION: Lidocaine 1% for local subcutaneous analgesia. COMPLICATIONS: None. RADIATION DOSE: Fluoroscopy Time: 9.8 seconds Cumulative Dose: 1.70 mGy PROCEDURE DESCRIPTION AND FINDINGS: The risks, benefits, alternatives and possible complications of the procedure were fully discussed; all questions were answered and informed consent was obtained. The patient was brought into the interventional suite and a pre-procedure 'time-out' was performed. The patient was placed on the fluoroscopy table in the supine position. The left upper extremity was prepped and draped in the usual sterile fashion. Maximum sterile barrier precautions were maintained throughout the entire procedure. Preliminary ultrasound images of the left upper extremity vasculature demonstrate patency of the left basilic vein. Following subcutaneous infiltration of 1% lidocaine for local analgesia, under ultrasound guidance, a 21-gauge needle was advanced into the left basilic vein with real-time visualization of needle entry. The ultrasound images were permanently recorded and submitted to the PACS. A 0.018 guidewire was advanced centrally to the cavoatrial junction. A 4.5 [place] Citizen peel-away sheath was advanced over the guidewire. After obtaining length measurement, a 4 [place] Citizen single-lumen PICC was placed with the tip of the catheter at the cavoatrial junction. The total length of the catheter is 45 cm. The hub of the PICC was secured to the skin using a sterile adhesive bandage. The patient tolerated the procedure well without immediate post-procedure complications and was transferred back to the floor in stable condition. IMPRESSION: SUCCESSFUL INSERTION OF LEFT UPPER EXTREMITY PICC. PICC OK TO USE.
== END 2017-08-20 14:23 | disposition home or self-care (01) ==
LOC: H.OPSURG 10:11
PROVIDERS: ATTEND Internal Medicine Medical Oncology
DX: D50.9 Iron deficiency anemia, unspecified (principal)
CPT/HCPCS: 36415; 36569; 76937; 77001; 85610; 85730; A4310; C1751

== ENCOUNTER 2017-09-05 12:47 | Emergency (ER) | payer OTHER ==
[2017-09-05 12:47] VITALS: BMI 37.2
[2017-09-05] MEDS ORDERED: guaiFENesin 100 mg/5 ml Syrup UD PO ONE (13:28)
--- NOTE | 2017-09-05 14:02 | ED PDOC ---
History of Present Illness History of Present Illness: 62 year old female presents to the ED complaining of fever, with associated cough, chills, body aches and nausea since yesterday. Otherwise: (-) sore throat, (-) URI symptoms, (-) SOB, (-) chest pain, (-) V/D, (-) abdominal pain, (-) flank pain, (-) urinary symptoms, (-) recent travel, (-) sick contacts. PMD: Dr. Sravan Yepez HPI: Influenza Time Seen by Provider: 09/05/17 13:13 Chief Complaint: Flu-like Symptoms Chief Complaint (Provider): Flu-like Symptoms History Per: Patient Exam Limitations: no limitations Onset/Duration Of Symptoms: Days (x 1) Symptoms include: fever, bodyaches, cough Past Medical History Reviewed: Historical Data, Nursing Documentation, Vital Signs Vital Signs: Last Vital Signs Temp 99 F 09/05/17 13:09 Pulse 77 09/05/17 13:09 Resp 22 09/05/17 13:09 BP 122/63 09/05/17 13:09 Pulse Ox 100 09/05/17 13:09 - Medical History PMH: Anemia, Anxiety, Asthma, Bronchitis, Depression, Diabetes, HTN, Hypercholesterolemia, Hyperlipidemia Denies: Hepatitis, HIV, Chronic Kidney Disease, Seizures, Sexually Transmitted Disease - Surgical History Surgical History: Appendectomy, Cholecystectomy - Family History Family History: States: Unknown Family Hx, Hypertension - Home Medications Home Medications: Ambulatory Orders Medication Instructions Recorded Enalapril Maleate [Vasotec] 5 mg PO DAILY 03/14/17 Gabapentin [Neurontin] 300 mg PO TID 03/14/17 Insulin Aspart, Recombinant 15 unit SQ DAILY 03/14/17 [Novolog] Insulin Glargine, Recombina 34 unit SQ HS 03/14/17 [Lantus] Levothyroxine [Synthroid] 137 mcg PO DAILY 03/14/17 Clopidogrel [Plavix] 75 mg PO DAILY 07/03/17 Magnesium Oxide [Magnesium] 400 mg PO DAILY 07/03/17 Mirtazapine [Remeron] 15 mg PO DAILY 07/03/17 Ondansetron [Zofran Tab] 4 mg PO PRN PRN 07/03/17 Ranitidine HCl [Ac[employer]] 150 mg PO DAILY 07/03/17 Ferrous Sulfate [Feosol] 325 mg PO DAILY #30 tab 07/06/17 Azithromycin [Zithromax] 250 mg PO DAILY #4 tab 09/05/17 Guaifenesin 400 mg PO QID #20 tablet 09/05/17 Ondansetron ODT [Zofran ODT] 4 mg PO DAILY PRN #20 odt 09/05/17 Oseltamivir Phosphate [Tamiflu] 75 mg PO BID #10 capsule 09/05/17 - Allergies Allergies/Adverse Reactions: Allergies Allergy/AdvReac Type Severity Reaction Status Date / Time No Known Allergies Allergy Verified 09/05/17 13:02 Review of Systems ROS Statement: Except As Marked, All Systems Reviewed And Found Negative Constitutional: Positive for: Fever, Chills, Other (body aches) Respiratory: Positive for: Cough Gastrointestinal: Positive for: Nausea Physical Exam - Reviewed Nursing Documentation Reviewed: Yes Vital Signs Reviewed: Yes - Physical Exam Comments: GENERAL APPEARANCE: Patient is awake, alert, oriented x 3, in no acute distress. Breathing easy and unlabored, speaking in full sentences. SKIN: Warm, dry; (-) cyanosis, (-) rash. (-) Decubitus Ulcer EYES: (-) conjunctival pallor, (-) scleral icterus, (-) conjunctival hemorrhage. ENMT: Mucous membranes moist. TMs: (-) erythema. Airway patent: (-) stridor. Pharynx: (-) erythema, (-) exudate. NECK: (-) tenderness, (-) stiffness, (-) meningismus, (-) lymphadenopathy. CHEST AND RESPIRATORY: (-) accessory muscle use. Lungs: (-) rales, (-) rhonchi, (-) wheezes, (-) rub; breath sounds equal bilaterally. HEART AND CARDIOVASCULAR: (-) irregularity; (-) murmur, (-) gallop, (-) rub. ABDOMEN AND GI: Soft; (-) tenderness, (-) guarding; (-) organomegaly; (-) mass ; (-) CVA tenderness. EXTREMITIES: (-) deformity; (-) cellulitis, (-) lymphangitis; (-) subungual hemorrhage; (-) edema. NEURO AND PSYCH: Mental status as above; (-) focal findings. Medical Decision Making Medical Decision Making: Time: 13:25 Impression: influenza, rule out possible pneumonia Initial Plan: --Chest x-ray --Robitussin 200 mg PO --Tamiflu 75 mg PO --Tylenol 975 mg PO --Zofran 4 mg PO CXR : no infiltrate, mild venous congestion, improved in prior CXRs, as read by PIPE. Likely diagnosis of flu discussed with patient. Advised that symptoms have been ongoing for 2 days, and therefore patient is in therapeutic window to give Tamiflu. Encouraged symptomatic treatment with intake of fluids, bed rest, Motrin and Tylenol. There is agreement to discharge plan. Advised patient to return to the emergency room at any time for any new or worsening symptoms. Advised to follow up with primary care physician in 1-2 days without fail. Advised to take medication as prescribed. Return to the emergency room at any time for any new or worsening symptoms. Patient states she fully agrees with and understands discharge instructions. States that she agrees with the plan and disposition. Verbalized and repeated discharge instructions and plan. I have given the patient opportunity to ask any additional questions. ---- Scribe Attestation: Documented by Linda James, acting as a scribe for Lachelle Faulkner PA-C Provider Scribe Attestation: All medical record entries made by the Scribe were at my direction and personally dictated by me. I have reviewed the chart and agree that the record accurately reflects my personal performance of the history, physical exam, medical decision making, and the department course for this patient. I have also personally directed, reviewed, and agree with the discharge instructions and disposition. - ECG O2 Sat by Pulse Oximetry: 100 (RA) Pulse Ox Interpretation: Normal Disposition - Clinical Impression Clinical Impression: Influenza-like symptoms - Patient ED Disposition Is Patient to be Admitted: No Counseled Patient/Family Regarding: Studies Performed, Diagnosis, Need For Followup, Rx Given - Disposition Disposition: Routine/Home Disposition Time: 15:00 Condition: STABLE Additional Instructions: Thank you for letting us take care of you today. You were treated for flu. The emergency medical care you received today was directed at your acute symptoms. If you were prescribed any medication, please fill it and take as directed. It may take several days for your symptoms to resolve. Return to the Emergency Department if your symptoms worsen, do not improve, or if you have any other problems. Please contact your doctor in 2 days for re-evaluation and follow up. Bring any paperwork you were given at discharge with you along with any medications you are taking to your follow up visit. Our treatment cannot replace ongoing medical care by a primary care provider (PCP) outside of the emergency department. Thank you for allowing the [facility] team to be part of your care today. If you had an X-Ray: A Radiologist will review the ED reading if any change in treatment is needed we will contact you. Prescriptions: Azithromycin [Zithromax] 250 mg PO DAILY #4 tab Guaifenesin 400 mg PO QID #20 tablet Ondansetron ODT [Zofran ODT] 4 mg PO DAILY PRN #20 odt PRN Reason: Nausea/Vomiting Oseltamivir Phosphate [Tamiflu] 75 mg PO BID #10 capsule Instructions: Flu Forms: [employer] (Slovenian) Print Language: DANISH
[2017-09-05] MEDS ORDERED: guaiFENesin 100 mg/5 ml Syrup UD ONE (14:12)
--- NOTE | 2017-09-05 14:19 | RAD ---
HISTORY: cough COMPARISON: Portable chest 07/02/2017. TECHNIQUE: Chest PA and lateral FINDINGS: Interval placement of the left upper extremity PICC catheter is now identified with tip terminating at the cavoatrial junction. LUNGS: No active pulmonary disease. PLEURA: No significant pleural effusion identified. No pneumothorax apparent. CARDIOVASCULAR: Pulmonary vascular pattern appears to be normalizing with borderline high by hilar vascular prominence. Cardiac size is normal. OSSEOUS STRUCTURES: No significant abnormalities. VISUALIZED UPPER ABDOMEN: Normal. OTHER FINDINGS: None. IMPRESSION: Interval left PICC insertion as described above. No pneumothorax bilaterally. No acute infiltrate or pleural effusion bilaterally either. Normalizing pulmonary venous congestion.
[2017-09-05 14:39] VITALS: BP 100/54; PULSE 81; RESP 18; TEMP 98
[2017-09-05 15:52] VITALS: O2SAT 100
== END 2017-09-05 14:51 | disposition home or self-care (01) ==
LOC: H.ER 12:47
DX: J11.1 Influenza due to unidentified influenza virus with other respiratory manifestations (principal); E11.9 Type 2 diabetes mellitus without complications; E78.00 Pure hypercholesterolemia, unspecified; F32.9 Major depressive disorder, single episode, unspecified; F41.9 Anxiety disorder, unspecified; I10 Essential (primary) hypertension; J45.909 Unspecified asthma, uncomplicated; Z79.4 Long term (current) use of insulin

== ENCOUNTER 2017-10-14 13:25 | Emergency (ER) | payer OTHER ==
[2017-10-14 13:26] VITALS: BMI 37.2
[2017-10-14 13:31] VITALS: BP 120/77; PULSE 82; RESP 16; TEMP 98.1; O2SAT 99
[2017-10-14] MEDS ORDERED: Iohexol 240 (50 ml) PO ONE (14:43)
[2017-10-14 15:17] LABS: BASO % 0.8 % (0.0-2.0); EOS # 0.2 K/uL (0.0-0.7); EOS % 4.2 % (0.0-4.0); HEMOGLOBIN 9.4 g/dL (12.0-16.0); LYMPH # 0.8 K/uL (1.0-4.3); LYMPH % 20.3 % (20.0-40.0); MEAN CELL VOLUME 89.8 fl (81.0-99.0); MEAN CORPUSCULAR HEMOGLOBIN 28.5 pg (27.0-31.0); MEAN CORPUSCULAR HGB CONC 31.7 g/dL (33.0-37.0); MEAN PLATELET VOLUME 9.5 fl (7.2-11.7); MONO # 0.2 K/uL (0.0-0.8); MONO % 4.9 % (0.0-10.0); NEUT # 2.6 K/uL (1.8-7.0); NEUT % 69.8 % (50.0-75.0); NRBC % 0.1 % (0.0-0.0); RBC 3.32 Mil/uL (3.80-5.20); RED CELL DISTRIBUTION WIDTH 17.3 % (11.5-14.5); WHITE BLOOD COUNT 3.7 K/uL (4.8-10.8)
[2017-10-14 15:20] LABS: ALBUMIN 3.9 g/dL (3.5-5.0); ALT/SGPT 38 U/L (9-52); AST/SGOT 44 U/L (14-36); BLOOD UREA NITROGEN 9 mg/dl (7-17); CALCIUM 8.5 mg/dL (8.4-10.2); GFR AFRICAN-AMERICAN > 60; GFR NON-AFRICAN AMERICAN > 60; LIPASE 49 U/L (23-300)
--- NOTE | 2017-10-14 15:47 | ED PDOC ---
HPI: Abdomen Time Seen by Provider: 10/14/17 14:15 Chief Complaint (Nursing): Abdominal Pain Chief Complaint (Provider): Abdominal Pain History Per: Patient History/Exam Limitations: no limitations Onset/Duration Of Symptoms: Days (x 10) Current Symptoms Are (Timing): Constant Location Of Pain/Discomfort: RLQ Quality Of Discomfort: "Pain" Associated Symptoms: Constipation. denies: Fever, Nausea, Vomiting, Diarrhea Additional Complaint(s): 62 year old female with a past medical history of HTN, Diabetes Mellitus, colon cancer, hyperthyroidism, anemia, and CAD, presents to the ED complaining of constant, non-radiating right lower quadrant abdominal pain and swelling associated with constipation, for the last 10 days. Patient states she has had multiple surgeries to the abdomen including colon resection, hernia repair, appendectomy, and other abdominal surgeries. Patient reports of noticing bright red blood in stool two days ago but not today. Denies nausea, vomiting, diarrhea , and fever. Past Medical History Reviewed: Historical Data, Nursing Documentation, Vital Signs Vital Signs: Last Vital Signs Temp 98.1 F 10/14/17 13:30 Pulse 82 10/14/17 13:30 Resp 16 10/14/17 13:30 BP 120/77 10/14/17 13:30 Pulse Ox 99 10/14/17 18:33 - Medical History PMH: Anemia, Anxiety, Asthma, Bronchitis, Depression, Diabetes, HTN, Hypercholesterolemia, Hyperlipidemia Denies: Hepatitis, HIV, Chronic Kidney Disease, Seizures, Sexually Transmitted Disease - Surgical History Surgical History: Appendectomy, Cholecystectomy, Hernia Repair Other surgeries: Colon resection and other abdominal surgeries. - Family History Family History: States: Unknown Family Hx, Hypertension - Home Medications Home Medications: Ambulatory Orders Medication Instructions Recorded Enalapril Maleate [Vasotec] 5 mg PO DAILY 03/14/17 Gabapentin [Neurontin] 300 mg PO TID 03/14/17 Insulin Aspart, Recombinant 15 unit SQ DAILY 03/14/17 [Novolog] Insulin Glargine, Recombina 34 unit SQ HS 03/14/17 [Lantus] Levothyroxine [Synthroid] 137 mcg PO DAILY 03/14/17 Clopidogrel [Plavix] 75 mg PO DAILY 07/03/17 Magnesium Oxide [Magnesium] 400 mg PO DAILY 07/03/17 Mirtazapine [Remeron] 15 mg PO DAILY 07/03/17 Ondansetron [Zofran Tab] 4 mg PO PRN PRN 07/03/17 Ranitidine HCl [Acid Target Man] 150 mg PO DAILY 07/03/17 Ferrous Sulfate [Feosol] 325 mg PO DAILY #30 tab 07/06/17 Azithromycin [Zithromax] 250 mg PO DAILY #4 tab 09/05/17 Guaifenesin 400 mg PO QID #20 tablet 09/05/17 Ondansetron ODT [Zofran ODT] 4 mg PO DAILY PRN #20 odt 09/05/17 Oseltamivir Phosphate [Tamiflu] 75 mg PO BID #10 capsule 09/05/17 Docusate Sodium [Colace] 100 mg PO BID #60 capsule 10/14/17 - Allergies Allergies/Adverse Reactions: Allergies Allergy/AdvReac Type Severity Reaction Status Date / Time No Known Allergies Allergy Verified 09/05/17 13:02 Review of Systems ROS Statement: Except As Marked, All Systems Reviewed And Found Negative Gastrointestinal: Positive for: Abdominal Pain (right lower quadrant abdominal pain and swelling ), Constipation, Hematochezia (2 days ago but not today) Physical Exam - Reviewed Nursing Documentation Reviewed: Yes Vital Signs Reviewed: Yes - Physical Exam Appears: Positive for: Non-toxic (Comfortable), No Acute Distress Head Exam: Positive for: ATRAUMATIC, NORMOCEPHALIC Skin: Positive for: Normal Color, Warm, Dry Eye Exam: Positive for: EOMI, Normal appearance, PERRL Neck: Positive for: Normal, Painless ROM, Supple Cardiovascular/Chest: Positive for: Regular Rate, Rhythm. Negative for: Murmur Respiratory: Positive for: Normal Breath Sounds. Negative for: Respiratory Distress Gastrointestinal/Abdominal: Positive for: Normal Exam, Soft, Tenderness ( Tenderness to right lower quadrant ), Other (swelling, no erythema) Back: Positive for: Normal Inspection. Negative for: L CVA Tenderness, R CVA Tenderness, Vertebral Tenderness Extremity: Positive for: Normal ROM. Negative for: Pedal Edema, Deformity Neurologic/Psych: Positive for: Alert, Oriented (x3). Negative for: Motor/ Sensory Deficits - Laboratory Results Result Diagrams: 10/14/17 14:54 10/14/17 14:54 - ECG O2 Sat by Pulse Oximetry: 99 (RA) Pulse Ox Interpretation: Normal - Progress Re-evaluation Time: 18:33 Condition: Re-examined, Improved Medical Decision Making Medical Decision Making: Time: 1458 Impression: Abdominal Pain Differentials include but not limited to small bowel obstruction, abdominal hernia, colitis, and diverticulitis. Plan: -- Type and Screen -- CT Abdomen Pelvis PO & IV Contract -- CMP -- Lipase -- ED Urine Dipstick -- CBC with differentials Time: 153 -- Discussed case with Family Resident Time: 1819 -- CT Abdomen Pelvis Results: FINDINGS: LOWER THORAX: Unremarkable. LIVER: Hepatomegaly, hepatic steatosis. Cirrhotic appearing liver. Patent portal venous system including intrahepatic, portal vein and splenic vein. Upper abdominal venous varicosities suggest portal hypertension. GALLBLADDER AND BILE DUCTS: Unremarkable. PANCREAS: Unremarkable. No gross lesion or ductal dilatation. SPLEEN: Unremarkable.Stable splenomegaly. Orthogonal measurements 10.6 x 14.8 x 15.9 cm ADRENALS: Unremarkable. No mass. KIDNEYS AND URETERS: Unremarkable. No hydronephrosis. No solid mass. VASCULATURE: Unremarkable. No aortic aneurysm. BOWEL: Dilated small bowel in its entirety extending to the ileal colicky anastomosis. The degree of small-bowel distention is less than that seen previously. No focal abnormalities at the anastomotic site identified. . Similar findings identified on the previous examination. APPENDIX: Not visualized. PERITONEUM: Unremarkable. No free fluid. No free air. LYMPH NODES: Unremarkable. No enlarged lymph nodes. BLADDER: Unremarkable. REPRODUCTIVE: Prior hysterectomy BONES: No acute fracture. OTHER FINDINGS: None. IMPRESSION: 1. Hepatosplenomegaly. Cirrhotic appearing liver. Venous varicosities again identified the overall appearance suggest portal venous hypertension without evidence of portal vein thrombosis. 2. Dilated small bowel in its entirety to the point of the ileal colicky anastomosis. The degree of dilatation is less than that identified previously. Additional benign and/or incidental findings described above. Scribe Attestation: Documented by Gerson Boggs, acting as a scribe for Dr. Amy Ty. Provider Scribe Attestation: All medical record entries made by the Scribe were at my direction and personally dictated by me. I have reviewed the chart and agree that the record accurately reflects my personal performance of the history, physical exam, medical decision making, and the department course for this patient. I have also personally directed, reviewed, and agree with the discharge instructions and disposition. Disposition - Clinical Impression Clinical Impression: Abdominal pain, Constipation, Anemia - Patient ED Disposition Is Patient to be Admitted: No Discussed With Dr.: Ashkan Lopez Doctor Will See Patient In The: Office Counseled Patient/Family Regarding: Studies Performed, Diagnosis, Need For Followup - Disposition Referrals: Ashkan Lopez MD [Staff Provider] - Disposition: Routine/Home Disposition Time: 18:43 Condition: GOOD Additional Instructions: Follow up with your PCP in 2-3 days. Return for worsening. Prescriptions: Docusate Sodium [Colace] 100 mg PO BID #60 capsule Instructions: Normocytic Normochromic Anemia (DC), Constipation in Adults Print Language: LIBYAN
[2017-10-14] MEDS ORDERED: Iohexol 300 100 ML IJ ONE (15:49)
[2017-10-14] MEDS ORDERED: Sodium Chloride 0.9% 100 ML ONE (15:49)
[2017-10-14] MEDS ORDERED: Iohexol 240 (50 ml) ONE (16:07)
--- NOTE | 2017-10-14 18:22 | CT ---
PROCEDURE: CT Abdomen and Pelvis with contrast HISTORY: Abdominal pain/swelling. Relevant medical history: Personal history of colon cancer. Relevant surgical history: Colon resection with ileocolonic anastomosis. COMPARISON: 03/14/2017 CT abdomen and pelvis TECHNIQUE: Contrast dose: 95 cc Omnipaque 300 Radiation dose: Total exam DLP = 956.59 mGy-cm. This CT exam was performed using one or more of the following dose reduction techniques: Automated exposure control, adjustment of the mA and/or kV according to patient size, and/or use of iterative reconstruction technique. FINDINGS: LOWER THORAX: Unremarkable. LIVER: Hepatomegaly, hepatic steatosis. Cirrhotic appearing liver. Patent portal venous system including intrahepatic, portal vein and splenic vein. Upper abdominal venous varicosities suggest portal hypertension. GALLBLADDER AND BILE DUCTS: Unremarkable. PANCREAS: Unremarkable. No gross lesion or ductal dilatation. SPLEEN: Unremarkable.Stable splenomegaly. Orthogonal measurements 10.6 x 14.8 x 15.9 cm ADRENALS: Unremarkable. No mass. KIDNEYS AND URETERS: Unremarkable. No hydronephrosis. No solid mass. VASCULATURE: Unremarkable. No aortic aneurysm. BOWEL: Dilated small bowel in its entirety extending to the ileal colicky anastomosis. The degree of small-bowel distention is less than that seen previously. No focal abnormalities at the anastomotic site identified. . Similar findings identified on the previous examination. APPENDIX: Not visualized. PERITONEUM: Unremarkable. No free fluid. No free air. LYMPH NODES: Unremarkable. No enlarged lymph nodes. BLADDER: Unremarkable. REPRODUCTIVE: Prior hysterectomy BONES: No acute fracture. OTHER FINDINGS: None. IMPRESSION: 1. Hepatosplenomegaly. Cirrhotic appearing liver. Venous varicosities again identified the overall appearance suggest portal venous hypertension without evidence of portal vein thrombosis. 2. Dilated small bowel in its entirety to the point of the ileal colicky anastomosis. The degree of dilatation is less than that identified previously. Additional benign and/or incidental findings described above.
== END 2017-10-14 18:58 | disposition home or self-care (01) ==
LOC: H.ER 13:25
DX: R10.31 Right lower quadrant pain (principal); K59.00 Constipation, unspecified; D64.9 Anemia, unspecified; E11.9 Type 2 diabetes mellitus without complications; E78.00 Pure hypercholesterolemia, unspecified; I10 Essential (primary) hypertension; Z79.4 Long term (current) use of insulin; Z85.038 Personal history of other malignant neoplasm of large intestine
CPT/HCPCS: 74177; 80053; 82948; 83690; 85025; 86850; 86900; 96374; 99283; J2270; Q9966; Q9967

== ENCOUNTER 2017-12-02 14:57 | Emergency (ER) | payer OTHER ==
[2017-12-02 14:57] VITALS: BMI 37.2
[2017-12-02 15:04] VITALS: BP 120/64; PULSE 92; RESP 18; TEMP 97.9; O2SAT 99
--- NOTE | 2017-12-02 17:50 | RAD ---
PROCEDURE: Right Hand Radiographs. HISTORY: trauma COMPARISON: None. FINDINGS: BONES: No acute fracture or destructive bony lesion identified. JOINTS: Limited degenerative cortical sclerosis appreciate throughout the interphalangeal joints as well as the basal joint. SOFT TISSUES: Normal. OTHER FINDINGS: None. IMPRESSION: No acute fracture or destructive bony lesion. No subluxation or dislocation. degenerative changes are as described above.
--- NOTE | 2017-12-02 17:52 | ED PDOC ---
Upper Extremity Pain/Injury Time Seen by Provider: 12/02/17 15:48 Chief Complaint (Nursing): Upper Extremity Problem/Injury Chief Complaint (Provider): Right thumb pain History Per: Patient History/Exam Limitations: no limitations Onset/Duration Of Symptoms: Days Current Symptoms Are (Timing): Still Present Quality: "Pain" Additional Complaint(s): 62 y/o female presents to the ED for right thumb pain. Patient reports she struck her right thumb with a hammer one year ago. She was too afraid to be evaluated when the injury occurred. Since the injury she has continued to have pain and discoloration of the nail. Upon the initial injury she noticed bruising to the tip of her finger which has since then resolved on it's own. She manages the pain with Tylenol taking her last dose today at 2 PM. She has no other medical complaints. Of note, patient is concerned about her sugar level. She has noticed it in the 300 level. Patient is right hand dominant. PMD: Dr. Sravan Hillman Past Medical History Reviewed: Historical Data, Nursing Documentation, Vital Signs Vital Signs: Last Vital Signs Temp 97.9 F 12/02/17 15:02 Pulse 92 H 12/02/17 15:02 Resp 18 12/02/17 15:02 BP 120/64 12/02/17 15:02 Pulse Ox 99 12/02/17 15:02 - Medical History PMH: Anemia, Anxiety, Asthma, Bronchitis, Depression, Diabetes, HTN, Hypercholesterolemia, Hyperlipidemia, Hypothyroidism Denies: Hepatitis, HIV, Chronic Kidney Disease, Seizures, Sexually Transmitted Disease Other PMH: cerebral aneurysm - Surgical History Surgical History: Appendectomy, Cholecystectomy, Hernia Repair Other surgeries: two bowel obstructions, three procedures to the feet, colon resection for cancer - Family History Family History: States: Unknown Family Hx, Hypertension - Social History Current smoker - smoking cessation education provided: No Ex-Smoker (has not smoked in the last 12 months): No Alcohol: None Drugs: Denies - Home Medications Home Medications: Ambulatory Orders Medication Instructions Recorded Enalapril Maleate [Vasotec] 5 mg PO DAILY 03/14/17 Gabapentin [Neurontin] 300 mg PO TID 03/14/17 Insulin Aspart, Recombinant 15 unit SQ DAILY 03/14/17 [Novolog] Insulin Glargine, Recombina 34 unit SQ HS 03/14/17 [Lantus] Levothyroxine [Synthroid] 137 mcg PO DAILY 03/14/17 Clopidogrel [Plavix] 75 mg PO DAILY 07/03/17 Magnesium Oxide [Magnesium] 400 mg PO DAILY 07/03/17 Mirtazapine [Remeron] 15 mg PO DAILY 07/03/17 Ondansetron [Zofran Tab] 4 mg PO PRN PRN 07/03/17 Ranitidine HCl [Acid Prepress Operator] 150 mg PO DAILY 07/03/17 Ferrous Sulfate [Feosol] 325 mg PO DAILY #30 tab 07/06/17 Azithromycin [Zithromax] 250 mg PO DAILY #4 tab 09/05/17 Guaifenesin 400 mg PO QID #20 tablet 09/05/17 Ondansetron ODT [Zofran ODT] 4 mg PO DAILY PRN #20 odt 09/05/17 Oseltamivir Phosphate [Tamiflu] 75 mg PO BID #10 capsule 09/05/17 Docusate Sodium [Colace] 100 mg PO BID #60 capsule 10/14/17 Meloxicam [Mobic] 15 mg PO DAILY #14 tab 12/02/17 - Allergies Allergies/Adverse Reactions: Allergies Allergy/AdvReac Type Severity Reaction Status Date / Time No Known Allergies Allergy Verified 09/05/17 13:02 Review of Systems ROS Statement: Except As Marked, All Systems Reviewed And Found Negative Musculoskeletal: Positive for: Other (right thumb pain with nail discoloration) Physical Exam - Reviewed Nursing Documentation Reviewed: Yes Vital Signs Reviewed: Yes - Physical Exam Comments: GENERAL APPEARANCE: Patient is awake, alert, oriented x 3, in no acute distress. Resting comfortably on cell phone. SKIN: Warm, dry; (-) cyanosis. Hand and Digits: (+) decreased flexion to the right first digit secondary to pain at the DIP, white discoloration of the right nail of the first digit, tenderness to the distal phalanx to the first digit. CHEST AND RESPIRATORY: (-) rales, (-) rhonchi, (-) wheezes; breath sounds equal. ABDOMEN: Soft, (-) distention, (-) tenderness, (-) guarding. NEURO AND PSYCH: Mental status as above. Sensation intact, remainder of hand, wrist, and elbow non-tender. - ECG O2 Sat by Pulse Oximetry: 99 (RA) Pulse Ox Interpretation: Normal Medical Decision Making Medical Decision Making: Time: 15:02 Impression: Thumb contusion Plan: * Glucose Check * Right hand X-ray Acucheck result was 142. X-ray results showed no acute disease. Patient is stable for discharge. Scribe Attestation: Documented by Valerio Pineda acting as a scribe Sunita Rodrigues PA-C. Scribe Attestation: All medical record entries made by the Scribe were at my direction and personally dictated by me. I have reviewed the chart and agree that the record accurately reflects my personal performance of the history, physical exam, medical decision making, and the department course for this patient. I have also personally directed, reviewed, and agree with the discharge instructions and disposition. Disposition - Disposition
== END 2017-12-02 18:11 | disposition home or self-care (01) ==
LOC: H.ER 14:57
DX: M79.644 Pain in right finger(s) (principal); E11.9 Type 2 diabetes mellitus without complications; Z79.4 Long term (current) use of insulin

== ENCOUNTER 2017-12-11 18:20 | Inpatient (IN) | payer OTHER ==
[2017-12-11 18:20] VITALS: BMI 37.2
[2017-12-11 19:24] LABS: BASO % 0.9 % (0.0-2.0); EOS # 0.1 K/uL (0.0-0.7); EOS % 2.7 % (0.0-4.0); LYMPH # 0.6 K/uL (1.0-4.3); LYMPH % 22.7 % (20.0-40.0); MEAN CELL VOLUME 73.6 fl (81.0-99.0); MEAN CORPUSCULAR HEMOGLOBIN 21.7 pg (27.0-31.0); MEAN CORPUSCULAR HGB CONC 29.4 g/dL (33.0-37.0); MONO # 0.2 K/uL (0.0-0.8); MONO % 7.3 % (0.0-10.0); NEUT # 1.8 K/uL (1.8-7.0); NEUT % 66.4 % (50.0-75.0); RBC 1.95 Mil/uL (3.80-5.20); RED CELL DISTRIBUTION WIDTH 17.7 % (11.5-14.5); WHITE BLOOD COUNT 2.7 K/uL (4.8-10.8)
[2017-12-11] MEDS ORDERED: Insulin Regular 100 units/ml IV STA (19:27)
--- NOTE | 2017-12-11 19:30 | ED PDOC ---
HPI: Chest Pain Time Seen by Provider: 12/11/17 18:35 Chief Complaint (Nursing): Chest Pain Chief Complaint (Provider): Chest Pain History Per: Patient History/Exam Limitations: no limitations Onset/Duration Of Symptoms: Days (x4) Current Symptoms Are (Timing): Still Present Additional Complaint(s): 62 year old female presents to the ED complaining of constant left sided chest pain associated with shortness of breath, onset 4 days ago. Patient reports she can "feel her heartbeat in her left ear", onset today. PMD: Sravan Hillman Past Medical History Reviewed: Historical Data, Nursing Documentation, Vital Signs Vital Signs: Last Vital Signs Temp 98 F 12/19/17 12:16 Pulse 90 12/19/17 12:16 Resp 18 12/19/17 12:16 BP 102/60 12/19/17 12:16 Pulse Ox 96 12/19/17 12:16 - Medical History PMH: Anemia, Anxiety, Asthma, Bronchitis, Depression, Diabetes, HTN, Hypercholesterolemia, Hyperlipidemia, Hypothyroidism Denies: Hepatitis, HIV, Chronic Kidney Disease, Seizures, Sexually Transmitted Disease - Surgical History Surgical History: Appendectomy, Cholecystectomy, Hernia Repair - Family History Family History: States: Unknown Family Hx, Hypertension - Immunization History Hx Tetanus Toxoid Vaccination: No Hx Influenza Vaccination: Yes Hx Pneumococcal Vaccination: No - Home Medications Home Medications: Ambulatory Orders Medication Instructions Recorded Gabapentin [Neurontin] 300 mg PO TID 03/14/17 Insulin Aspart, Recombinant 15 unit SQ DAILY 03/14/17 [Novolog] Insulin Glargine, Recombina 34 unit SQ HS 03/14/17 [Lantus] Levothyroxine [Synthroid] 137 mcg PO DAILY 03/14/17 Clopidogrel [Plavix] 75 mg PO DAILY 07/03/17 Magnesium Oxide [Magnesium] 400 mg PO DAILY 07/03/17 Mirtazapine [Remeron] 30 mg PO DAILY 07/03/17 Ranitidine HCl [Acid Dental Appliance Fixer] 150 mg PO DAILY 07/03/17 Ferrous Sulfate [Feosol] 325 mg PO DAILY #30 tab 07/06/17 Docusate Sodium [Colace] 100 mg PO BID #60 capsule 10/14/17 Meloxicam [Mobic] 15 mg PO DAILY #14 tab 12/02/17 Albuterol Sulfate [Ventolin Hfa] 90 mcg INH Q6H 12/11/17 Ascorbic Acid [Vitamin C 500 mg 500 mg PO DAILY 12/11/17 Tab] Atorvastatin [Lipitor] 20 mg PO DAILY 12/11/17 Cyanocobalamin [Vitamin B12 1000 1,000 mcg PO DAILY 12/11/17 mcg Tab] Esomeprazole Magnesium [Nexium] 40 mg PO DAILY 12/11/17 Lisinopril [Prinivil] 20 mg PO DAILY 12/11/17 Zolpidem Tartrate [Edluar] 5 mg PO DAILY 12/11/17 Pantoprazole [Protonix] 40 mg PO DAILY #30 ect 12/19/17 - Allergies Allergies/Adverse Reactions: Allergies Allergy/AdvReac Type Severity Reaction Status Date / Time No Known Allergies Allergy Verified 09/05/17 13:02 TIFFANY Risk Score for UA/NSTEMI - TIFFANY Risk Score Age > 64: NO 3 or more CAD Risk Factors: YES Known CAD (Stenosis greater than 50%): YES Aspirin use in past 7 days: NO Severe Angina: NO EKG ST changes greater than 0.5mm: NO Positive Cardiac Marker: NO TIFFANY Score: 2 Risk %: 8% Review of Systems ROS Statement: Except As Marked, All Systems Reviewed And Found Negative Cardiovascular: Positive for: Chest Pain (left sided ) Respiratory: Positive for: Shortness of Breath Physical Exam - Reviewed Nursing Documentation Reviewed: Yes Vital Signs Reviewed: Yes - Physical Exam Appears: Positive for: In Acute Distress (anxious, tearful) Head Exam: Positive for: ATRAUMATIC, NORMOCEPHALIC Skin: Positive for: Normal Color, Warm, Dry Eye Exam: Positive for: Normal appearance, EOMI, PERRL ENT: Positive for: Normal ENT Inspection Neck: Positive for: Normal Cardiovascular/Chest: Positive for: Regular Rate, Rhythm. Negative for: Murmur Respiratory: Positive for: Normal Breath Sounds. Negative for: Respiratory Distress Gastrointestinal/Abdominal: Positive for: Normal Exam, Soft. Negative for: Tenderness Back: Positive for: Normal Inspection Extremity: Positive for: Normal ROM, Swelling (1+ pitting edema bilaterally), Other (generalized edema ) Neurologic/Psych: Positive for: Alert, Oriented. Negative for: Motor/Sensory Deficits - Laboratory Results Result Diagrams: 12/18/17 11:12 12/17/17 05:00 - ECG Interpretation Of ECG: NSR @ 97, ST depression?TWI inferolateral leads. O2 Sat by Pulse Oximetry: 99 (RA) Pulse Ox Interpretation: Normal - Radiology X-Ray: Interpreted by Me X-Ray Interpretation: Other (Congestion) Medical Decision Making Medical Decision Making: Time: 1844 Impression: Chest pain Differentials include but not limited to ACS Plan: -- EKG -- ED Urine Dipstick -- CXR Portable -- Glucose, Blood, POC -- Urinalysis Time: 1914 Plan: -- CMP -- TSH -- Troponin I -- CBC with differentials -- PTT -- Prothrombin Time -- HumuLIN R 4 units IV Time: 2051 Plan: -- ABO/RH Type -- Crossmatch -- Type and Screen -- CTA Head & Neck -- ED Urine Dipstick -- Macrobid 100 mg PO -- Tylenol 650 mg PO -- Transfuse Blood -- Urinalysis Time: 2233 HEAD/NECK CTA RESULTS FINDINGS: VASCULATURE: Right common carotid artery: Normal. No significant stenosis. No dissection or occlusion. Right internal carotid artery: Normal. Extracranial segment is patent with no significant stenosis. No dissection or occlusion. Right external carotid artery: Normal. No occlusion. Right vertebral artery: Normal. No significant stenosis. No dissection or occlusion. Left common carotid artery: Normal. No significant stenosis. No dissection or occlusion. Left internal carotid artery: Normal. Extracranial segment is patent with no significant stenosis. No dissection or occlusion. Left external carotid artery: Normal. No occlusion. Left vertebral artery: Normal. No significant stenosis. No dissection or occlusion. NECK: Bones/joints: No acute fracture. No dislocation. Soft tissues: Normal as visualized. No mass. Lymph nodes: Enlarged mediastinal lymph nodes are present measuring up to 12 mm in the prevascular region and 12 mm in the precarinal region. 1.3 cm high right paratracheal lymph node (axial image 229). Lung apices: Atelectasis within the imaged upper and lower lobes. Diffuse groundglass opacities throughout the imaged lungs. Smooth interlobular septal thickening within the upper lobes. Pleural space: Small pleural effusions. CAROTID STENOSIS REFERENCE USING NASCET CRITERIA: % ICA stenosis = (1 - narrowest ICA diameter/diameter of distal cervical ICA) x 100. Mild - <50% stenosis. Moderate - 50-69% stenosis. Severe - 70-94% stenosis. Near occlusion - 95-99% stenosis. Occluded - 100% stenosis. IMPRESSION: 1. No hemodynamically significant stenosis of either internal carotid artery per NASCET criteria. 2. Normal appearance of the cervical vertebral arteries. 3. Imaging findings suggestive of early pulmonary edema within the imaged lungs. Superimposed infection cannot be excluded. 4. Mediastinal adenopathy which may be reactive in nature. Thank you for allowing us to participate in the care of your patient. Dictated and Authenticated by: Julius Shoemaker DO 12/11/2017 10:34 PM Eastern Time ([place] & [place]) Scribe Attestation: Documented by Gerson Boggs, acting as a scribe for Dr. Beba Marcial MD. Provider Scribe Attestation: All medical record entries made by the Scribe were at my direction and personally dictated by me. I have reviewed the chart and agree that the record accurately reflects my personal performance of the history, physical exam, medical decision making, and the department course for this patient. I have also personally directed, reviewed, and agree with the discharge instructions and disposition. Disposition - Clinical Impression Clinical Impression: Chest pain, Anemia - Disposition Disposition Time: 23:31 Condition: STABLE - Pt Status Changed To: Hospital Disposition Of: Inpatient - Admit Certification Admit to Inpatient:: After my assessment, the patient will require hospitalization for at least two midnights. This is because of the severity of symptoms shown, intensity of services needed, and/or the medical risk in this patient being treated as an outpatient. - POA Present On Arrival: None
[2017-12-11 19:31] LABS: ALB/GLOB RATIO 0.9 (1.0-2.1); ALBUMIN 3.1 g/dL (3.5-5.0); ALT/SGPT 20 U/L (9-52); AST/SGOT 28 U/L (14-36); BLOOD UREA NITROGEN 15 mg/dl (7-17); CALCIUM 7.9 mg/dL (8.4-10.2); GFR AFRICAN-AMERICAN > 60; GFR NON-AFRICAN AMERICAN > 60
[2017-12-11 19:33] LABS: HEMOGLOBIN 4.2 g/dL (12.0-16.0)
[2017-12-11 19:34] LABS: PROTHROMBIN TIME 13.2 Seconds (9.8-13.1)
[2017-12-11 19:35] LABS: INR 1.2 (0.9-1.2); PARTIAL THROMBOPLASTIN TIME 30.3 Seconds (25.6-37.1)
[2017-12-11] MEDS ORDERED: Insulin Regular 100 units/ml ONE (20:08)
[2017-12-11 21:07] LABS: SQUAMOUS EPITHIAL < 1 /hpf (0-5); URINE BILIRUBIN NEGATIVE (NEGATIVE); URINE BLOOD NEGATIVE (NEGATIVE); URINE CLARITY CLEAR (Clear); URINE COLOR YELLOW (YELLOW); URINE GLUCOSE (UA) NEG (Normal); URINE LEUKOCYTE ESTERASE TRACE Leu/uL (Negative); URINE PROTEIN NEGATIVE (NEGATIVE); URINE UROBILINOGEN 0.2-1.0 mg/dL (0.2-1.0)
[2017-12-11] MEDS ORDERED: Iodixanol 320 MG/ML 100 ML BOTTLE IV ONE (21:09)
[2017-12-11] MEDS ORDERED: Sodium Chloride 0.9% 50 ML IV ONE (21:09)
[2017-12-12 02:37] LABS: IRON < 10 ug/dL (37-170)
[2017-12-12 02:47] LABS: TOTAL IRON BINDING CAPACITY 434 ug/dL (250-450)
[2017-12-12 02:49] LABS: % IRON SATURATION 12 % (20-55)
--- NOTE | 2017-12-12 07:40 | RAD ---
HISTORY: CP COMPARISON: Chest radiographs 09/05/2017. FINDINGS: LUNGS: Increased reticular markings are appreciate as well as hilar vascular markings suspicious for active CHF. Alternately, consider potential interstitial pneumonitis in the interval. PLEURA: No significant pleural effusion identified, no pneumothorax apparent. CARDIOVASCULAR: Mild CHF suspected. Please see discussion above. OSSEOUS STRUCTURES: No significant abnormalities. VISUALIZED UPPER ABDOMEN: Normal. OTHER FINDINGS: None. IMPRESSION: Interval pulmonary venous congestion suspected although interstitial pneumonitis not excluded. Clinically correlate further.
--- NOTE | 2017-12-12 08:22 | CARD ---
APPROVED REPORT EKG Measurement Heart [id number] <Conclusion> Sinus rhythm with premature supraventricular complexes ST & T wave abnormality, consider inferolateral ischemia Abnormal ECG
[2017-12-12] MEDS: Insulin Lispro (humaLOG) 100 Units/ml Inj SC SCH (08:58)
[2017-12-12] MEDS: Magnesium Oxide 400 mg Tab UD PO SCH (09:00)
[2017-12-12] MEDS: Naproxen 500 MG TAB PO SCH ×2 (09:01→22:09)
[2017-12-12] MEDS: Pantoprazole 40 mg EC Tab PO SCH (09:03)
[2017-12-12] MEDS: Levothyroxine 150 MCG TAB PO SCH (09:04)
--- NOTE | 2017-12-12 09:27 | CP.PCM.HP ---
<JuarezShima - Last Filed: 12/12/17 16:50> History of Present Illness - History of Present Illness History of Present Illness: 62 yr old F presented to ED with compliant of chest pain, SOB and generalized weakness x 4 days. Associated symptoms are pulsating sensation in left ear, malaise and weakness causing her to fall and hit her forehead. PMHx includes colon cancer s/p resection and chemotherapy in 2005, chronic anemia requiring multiple blood transfusions and IV iron treatments, hypothyroidism, cirrhosis, IDDM type 2, HTN, asthma and anxiety. Denies headache, palpitations, syncope, nausea, vomiting, diarrhea, hematuria, hematochezia or abdominal pain. Patient reports GI workup 1 yr ago revealed normal upper endoscopy and colonoscopy. PMD: Sravan Schaffer Specialists: Dr. Jay- heme/onc, Dr. Lopez- GI, Dr. Hopkins-bridge gang worker PMHx: colon cancer s/p resection and chemotherapy in 2005, chronic anemia requiring multiple blood transfusions and IV iron treatments, hypothyroidism, IDDM type 2, cirrhosis, HTN, asthma and anxiety SurgHx: colon resection, appendectomy, cholecystectomy, hernia repair FMHx: noncontributory SocHx: denies tobacco, Etoh or drugs Medications: see medication reconciliation Allergies: NKDA ED course: vitals stable -CBC: WBC 2.7, H/H 4.2/14.3, MCV 73.6, plts 83 -CTA head and neck: no hemodynamically significant stenosis of internal carotid arteries, findings suggesting pulmonary edema -PT 13.2, INR 1.3, PTT 30.3 -CMP: K+ 3.5, rest wnl -total bili 1.9, TSH 5.32, total T3 0.767 -troponin < 0.0120 -urinalysis: trace leukocyte esterase -ED tx: ABO/Rh type and screen, transfuse 2 units pRBC's, Macrobid 100mg PO, Tylenol 650mg PO Present on Admission - Present on Admission Any Indicators Present on Admission: No History of DVT/PE: No History of Uncontrolled Diabetes: No Urinary Catheter: No Decubitus Ulcer Present: No History Surgical Site Infection Following: None Review of Systems - Constitutional Constitutional: absent: Headache - EENT Eyes: absent: Change in Vision Ears: absent: Dizziness Nose/Mouth/Throat: absent: Sore Throat - Cardiovascular Cardiovascular: Chest Pain, Dyspnea - Respiratory Respiratory: absent: Cough, Hemoptysis - Gastrointestinal Gastrointestinal: absent: Diarrhea, Nausea, Vomiting - Genitourinary Genitourinary: absent: Difficulty Urinating, Dysuria - Musculoskeletal Musculoskeletal: Arthralgias, Muscle Weakness (generalized) - Integumentary Integumentary: Wounds (RLE ulcer) - Neurological Neurological: absent: Confusion - Psychiatric Psychiatric: absent: Anxiety - Endocrine Endocrine: absent: Polydipsia, Polyphagia, Polyuria - Hematologic/Lymphatic Hematologic: absent: Easy Bleeding, Easy Bruising Past Patient History - Past Medical History & Family History Past Medical History?: Yes - Past Social History Smoking Status: Never Smoked - CARDIAC Hx Hypercholesterolemia: Yes Hx Hypertension: Yes - PULMONARY Hx Asthma: Yes Hx Bronchitis: Yes - NEUROLOGICAL Hx Seizures: No - HEENT Hx HEENT Problems: No - RENAL Hx Chronic Kidney Disease: No - ENDOCRINE/METABOLIC Hx Hypothyroidism: Yes - HEMATOLOGICAL/ONCOLOGICAL Hx Anemia: Yes Hx Human Immunodeficiency Virus (HIV): No - INTEGUMENTARY Hx Dermatological Problems: No - MUSCULOSKELETAL/RHEUMATOLOGICAL Hx Musculoskeletal Disorders: Yes Hx Falls: Yes - GASTROINTESTINAL Hx Gastrointestinal Disorders: Yes Hx Bowel Surgery: Yes Hx Colostomy: Yes (reversed 2008) Hx Gastroesophageal Reflux: Yes Other/Comment: colon ca - GENITOURINARY/GYNECOLOGICAL Hx Sexually Transmitted Disorders: No - PSYCHIATRIC Hx Anxiety: Yes Hx Depression: Yes Hx Substance Use: No - SURGICAL HISTORY Hx Appendectomy: Yes Hx Cholecystectomy: Yes - ANESTHESIA Hx Anesthesia: Yes Hx Anesthesia Reactions: No Hx Malignant Hyperthermia: No Meds Home Medications: Home Medication List Medication Instructions Recorded Confirmed Type Pantoprazole [Protonix] 40 mg PO DAILY #30 ect 12/19/17 Rx Allergies/Adverse Reactions: Allergies Allergy/AdvReac Type Severity Reaction Status Date / Time No Known Allergies Allergy Verified 09/05/17 13:02 Physical Exam - Constitutional Appears: No Acute Distress - Head Exam Head Exam: ATRAUMATIC, NORMOCEPHALIC - Eye Exam Eye Exam: EOMI, PERRL Additional comments: pale conjunctiva bilaterally - ENT Exam ENT Exam: Mucous Membranes Moist - Respiratory Exam Respiratory Exam: Clear to Auscultation Bilateral, NORMAL BREATHING PATTERN - Cardiovascular Exam Cardiovascular Exam: REGULAR RHYTHM - GI/Abdominal Exam GI & Abdominal Exam: Normal Bowel Sounds, Soft. absent: Tenderness - Extremities Exam Extremities exam: Positive for: full ROM, pedal pulses present. Negative for: calf tenderness Additional comments: 1cm distal-lateral RLE stage 1 ulcer - Back Exam Back exam: absent: CVA tenderness (L), CVA tenderness (R) - Neurological Exam Neurological exam: Alert, CN II-XII Intact, Oriented x3 - Psychiatric Exam Psychiatric exam: Normal Affect, Normal Mood - Skin Skin Exam: Dry, Normal Color, Warm Results - Vital Signs Recent Vital Signs: Last Vital Signs Temp 98.3 F 12/12/17 08:00 Pulse 82 12/12/17 09:05 Resp 20 12/12/17 08:00 BP 100/55 L 12/12/17 09:05 Pulse Ox 98 12/12/17 08:00 - Labs Result Diagrams: 12/12/17 11:00 12/12/17 11:00 Labs: Laboratory Results - last 24 hr 12/11/17 12/11/17 12/11/17 18:42 19:15 19:15 WBC 2.7 L RBC 1.95 L Hgb 4.2 L* D Hct 14.3 L MCV 73.6 L D MCH 21.7 L MCHC 29.4 L RDW 17.7 H Plt Count 83 L D MPV 11.0 Neut % (Auto) 66.4 Lymph % (Auto) 22.7 [place] % (Auto) 7.3 Eos % (Auto) 2.7 Baso % (Auto) 0.9 Neut # (Auto) 1.8 Lymph # (Auto) 0.6 L [place] # (Auto) 0.2 Eos # (Auto) 0.1 Baso # (Auto) 0.0 Retic Count PT INR APTT Sodium 135 Potassium 4.4 Chloride 106 Carbon Dioxide 22 Anion Gap 11 BUN 15 Creatinine 0.7 Est GFR ( Amer) > 60 Est GFR (Non-Af Amer) > 60 POC Glucose (mg/dL) 261 H Random Glucose 217 H Calcium 7.9 L Iron TIBC % Saturation Total Bilirubin 0.7 AST 28 ALT 20 Alkaline Phosphatase 72 Troponin I < 0.0120 NT-Pro-B Natriuret Pep Total Protein 6.7 Albumin 3.1 L D Globulin 3.6 Albumin/Globulin Ratio 0.9 L TSH 3rd Generation 4.81 H Urine Color Urine Clarity Urine pH Ur Specific [place] Urine Protein Urine Glucose (UA) Urine Ketones Urine Blood Urine Nitrate Urine Bilirubin Urine Urobilinogen Ur Leukocyte Esterase Urine RBC (Auto) Urine Microscopic WBC Ur Squamous Epith Cells Blood Type Antibody Screen Crossmatch BBK History Checked 12/11/17 12/11/17 12/11/17 19:15 19:15 20:50 WBC RBC Hgb Hct MCV MCH MCHC RDW Plt Count MPV Neut % (Auto) Lymph % (Auto) [place] % (Auto) Eos % (Auto) Baso % (Auto) Neut # (Auto) Lymph # (Auto) [place] # (Auto) Eos # (Auto) Baso # (Auto) Retic Count PT 13.2 H INR 1.2 APTT 30.3 Sodium Potassium Chloride Carbon Dioxide Anion Gap BUN Creatinine Est GFR ( Amer) Est GFR (Non-Af Amer) POC Glucose (mg/dL) Random Glucose Calcium Iron TIBC % Saturation Total Bilirubin AST ALT Alkaline Phosphatase Troponin I NT-Pro-B Natriuret Pep 416 Total Protein Albumin Globulin Albumin/Globulin Ratio TSH 3rd Generation Urine Color Yellow Urine Clarity Clear Urine pH 6.0 Ur Specific [place] 1.011 Urine Protein Negative Urine Glucose (UA) Neg Urine Ketones Negative Urine Blood Negative Urine Nitrate Negative Urine Bilirubin Negative Urine Urobilinogen 0.2-1.0 Ur Leukocyte Esterase Trace Urine RBC (Auto) 2 Urine Microscopic WBC 6 H Ur Squamous Epith Cells < 1 Blood Type Antibody Screen Crossmatch BBK History Checked 12/11/17 12/12/17 12/12/17 21:42 00:46 01:55 WBC RBC Hgb Hct MCV MCH MCHC RDW Plt Count MPV Neut % (Auto) Lymph % (Auto) [place] % (Auto) Eos % (Auto) Baso % (Auto) Neut # (Auto) Lymph # (Auto) [place] # (Auto) Eos # (Auto) Baso # (Auto) Retic Count PT INR APTT Sodium Potassium Chloride Carbon Dioxide Anion Gap BUN Creatinine Est GFR ( Amer) Est GFR (Non-Af Amer) POC Glucose (mg/dL) 144 H Random Glucose Calcium Iron < 10 L TIBC 434 % Saturation 12 L Total Bilirubin AST ALT Alkaline Phosphatase Troponin I NT-Pro-B Natriuret Pep Total Protein Albumin Globulin Albumin/Globulin Ratio TSH 3rd Generation Urine Color Urine Clarity Urine pH Ur Specific [place] Urine Protein Urine Glucose (UA) Urine Ketones Urine Blood Urine Nitrate Urine Bilirubin Urine Urobilinogen Ur Leukocyte Esterase Urine RBC (Auto) Urine Microscopic WBC Ur Squamous Epith Cells Blood Type A POSITIVE Antibody Screen Negative Crossmatch See Detail BBK History Checked Patient has bt 12/12/17 12/12/17 01:55 06:38 WBC RBC Hgb Hct MCV MCH MCHC RDW Plt Count MPV Neut % (Auto) Lymph % (Auto) [place] % (Auto) Eos % (Auto) Baso % (Auto) Neut # (Auto) Lymph # (Auto) [place] # (Auto) Eos # (Auto) Baso # (Auto) Retic Count 3.2 H PT INR APTT Sodium Potassium Chloride Carbon Dioxide Anion Gap BUN Creatinine Est GFR ( Amer) Est GFR (Non-Af Amer) POC Glucose (mg/dL) 169 H Random Glucose Calcium Iron TIBC % Saturation Total Bilirubin AST ALT Alkaline Phosphatase Troponin I NT-Pro-B Natriuret Pep Total Protein Albumin Globulin Albumin/Globulin Ratio TSH 3rd Generation Urine Color Urine Clarity Urine pH Ur Specific [place] Urine Protein Urine Glucose (UA) Urine Ketones Urine Blood Urine Nitrate Urine Bilirubin Urine Urobilinogen Ur Leukocyte Esterase Urine RBC (Auto) Urine Microscopic WBC Ur Squamous Epith Cells Blood Type Antibody Screen Crossmatch BBK History Checked Assessment & Plan - Assessment and Plan (Free Text) Assessment: 62 yr old F admitted for severe symptomatic anemia, and found to have UTI. PMHx including colon cancer s/p resection and chemotherapy in 2005, chronic anemia requiring multiple blood transfusions and IV iron treatments, hypothyroidism, IDDM type 2, cirrhosis, HTN, asthma and anxiety Plan: -admit to telemetry -cardiac monitoring -cardiology consulty appreciated -f/u post transfusion CBC -f/u HbA1c -heme/onc consult appreciated -Levothyroxine dose increased to 150mcg -macrobid 100mg PO Q12 - Date & Time Date: 12/12/17 Time: 07:50 <Norm Hull K - Last Filed: 12/20/17 14:16> Results - Vital Signs Recent Vital Signs: Last Vital Signs Temp 98 F 12/19/17 12:16 Pulse 90 12/19/17 12:16 Resp 18 12/19/17 12:16 BP 102/60 12/19/17 12:16 Pulse Ox 99 12/20/17 10:33 - Labs Result Diagrams: 12/18/17 11:12 12/17/17 05:00 Assessment & Plan - Assessment and Plan (Free Text) Assessment: Patient was personally seen and examined by me in rounds with residents. Available labs and diagnostic data reviewed. Case, Patient's condition and management plan discussed with residents in rounds. Agree with resident's progress note. Plan: As ordered.
--- NOTE | 2017-12-12 10:09 | CT ---
PROCEDURE: CT Angiography of the Brain and Neck. HISTORY: Throbbing in L ear COMPARISON: None available. TECHNIQUE: CT angiography of the intracranial and neck arteries was performed. Coronal and sagittal maximum intensity projection reformatted images were generated. Contrast Dose: Visipaque 320, 80 cc Radiation dose:Total exam DLP = 708.85 mGy-cm. This CT exam was performed using one or more of the following dose reduction techniques: Automated exposure control, adjustment of the mA and/or kV according to patient size, and/or use of iterative reconstruction technique. FINDINGS: INTERNAL CEREBRAL ARTERIES: Unremarkable. The skull base, petrous, cavernous and supraclinoid segments are bilaterally widely patent. ANTERIOR CEREBRAL ARTERIES: Unremarkable. A1 and A2 segments are widely patent. Smaller distal branches unremarkable, as visualized. MIDDLE CEREBRAL ARTERIES: Unremarkable. M1 and M2 segments are widely patent. Perisylvian branches grossly symmetric. POSTERIOR CIRCULATION: Basilar Artery: Widely patent. Distal Vertebral Arteries: Hypoplastic a patent distal left vertebral arteries identified with a widely patent right distal vertebral artery segment. Posterior Cerebral Arteries: Unremarkable. Posterior Inferior Cerebellar Arteries: Unremarkable. ANEURYSM/ VASCULAR MALFORMATIONS: None. OTHER FINDINGS: Pulmonary vascular congestion pattern noted bilateral pulmonary apices including hypervascularity and bilateral interlobular septal thickening. IMPRESSION: Unremarkable CT Angiography of the Brain and Neck. Incidental note is made of interstitial pattern suspicious for pulmonary vascular congestion and concordant with appearance on chest radiograph also performed 12/11/2017. Concordant preliminary report from [facility], 12/11/2017.
--- NOTE | 2017-12-12 10:31 | CP.PCM.CON ---
History of Present Illness - History of Present Illness History of Present Illness: This is a 62 yrs old female who has had multiple admissions to this hospital for various reasons but mainly for anemia. Pt has a h/o colon cancer with resection of colon. She claims she did not get any chemotherapy because she was told that the whole tumor was removed. She has had GI bleeding however off and on and has had transfusions on several occasions. Now she was admitted for severe anemia with a hgb of 4.2gms. She claims she had rectal bleeding with dark colored stools The wbc was 2.7, the platelets 83K. In [place] 2018 she was found to have cirrhosis with splenomegaly and some prominence of the lower esophageal veins. Since then she has had mild pancytopenia , WBC ranging from 2.7 - 4.1, platelets 83 to 110k. She also claims she has diverticulitis which has caused her some bleeing. Her last colonoscopy was 2 yrs ago. Now she has a WBC 2.7, hgb 4.2, bdes7esbp 83K. the retic count is 3.2, serum iron ,10, iron Sat 12%, TIBC 434. Ferritn not yet available. Diff appears more or less normal other than a slightly decreased lymphs of 22%. past history; HTN, IDDM, Hypothyroidism, , s/p colon with colectomy, intestinal obstruction,hysterectomy,cholecystectomy, appendectomy Past Patient History - Past Medical History & Family History Past Medical History?: Yes - Past Social History Smoking Status: Never Smoked - CARDIAC Hx Hypercholesterolemia: Yes Hx Hypertension: Yes - PULMONARY Hx Asthma: Yes Hx Bronchitis: Yes - NEUROLOGICAL Hx Seizures: No - HEENT Hx HEENT Problems: No - RENAL Hx Chronic Kidney Disease: No - ENDOCRINE/METABOLIC Hx Hypothyroidism: Yes - HEMATOLOGICAL/ONCOLOGICAL Hx Anemia: Yes Hx Human Immunodeficiency Virus (HIV): No - INTEGUMENTARY Hx Dermatological Problems: No - MUSCULOSKELETAL/RHEUMATOLOGICAL Hx Musculoskeletal Disorders: Yes Hx Falls: Yes - GASTROINTESTINAL Hx Gastrointestinal Disorders: Yes Hx Bowel Surgery: Yes Hx Colostomy: Yes (reversed 2008) Hx Gastroesophageal Reflux: Yes Other/Comment: colon ca - GENITOURINARY/GYNECOLOGICAL Hx Sexually Transmitted Disorders: No - PSYCHIATRIC Hx Anxiety: Yes Hx Depression: Yes Hx Substance Use: No - SURGICAL HISTORY Hx Appendectomy: Yes Hx Cholecystectomy: Yes - ANESTHESIA Hx Anesthesia: Yes Hx Anesthesia Reactions: No Hx Malignant Hyperthermia: No Meds Allergies/Adverse Reactions: Allergies Allergy/AdvReac Type Severity Reaction Status Date / Time No Known Allergies Allergy Verified 09/05/17 13:02 - Medications Medications: Current Medications Albuterol (Ventolin Hfa 90 Mcg/Actuation (8 G)) 1 puff INH Q6H [facility] Ascorbic Acid (Vitamin C 500 Mg Tab) 500 mg PO DAILY [facility] Last Admin: 12/12/17 09:05 Dose: 500 mg Atorvastatin Calcium (Lipitor) 20 mg PO DAILY [facility] Last Admin: 12/12/17 09:00 Dose: 20 mg Clopidogrel Bisulfate (Plavix) 75 mg PO DAILY [facility] Last Admin: 12/12/17 09:02 Dose: 75 mg Cyanocobalamin (Vitamin B12 1000 Mcg Tab) 1,000 mcg PO DAILY [facility] Last Admin: 12/12/17 09:05 Dose: 1,000 mcg Docusate Sodium (Colace) 100 mg PO BID [facility] Last Admin: 12/12/17 08:56 Dose: 100 mg Famotidine (Pepcid) 20 mg PO BID [facility] Last Admin: 12/12/17 09:02 Dose: 20 mg Ferrous Sulfate (Feosol) 325 mg PO DAILY [facility] Last Admin: 12/12/17 08:57 Dose: 325 mg Gabapentin (Neurontin) 300 mg PO TID [facility] Last Admin: 12/12/17 09:02 Dose: 300 mg Insulin Detemir (Levemir) 34 units SC [facility] Insulin Human Lispro (Humalog) 15 units SC DAILY [facility] Last Admin: 12/12/17 08:58 Dose: 15 units Levothyroxine Sodium (Synthroid) 150 mcg PO DAILY@0630 [facility] Last Admin: 12/12/17 09:04 Dose: 150 mcg Lisinopril (Zestril) 20 mg PO DAILY [facility] Last Admin: 12/12/17 09:05 Dose: Not Given Magnesium Oxide (Mag-Ox) 400 mg PO DAILY [facility] Last Admin: 12/12/17 09:00 Dose: 400 mg Mirtazapine (Remeron) 30 mg PO DAILY [facility] Last Admin: 12/12/17 09:03 Dose: 30 mg Naproxen (Naproxen) 500 mg PO Q12 [facility] Last Admin: 12/12/17 09:01 Dose: 500 mg Pantoprazole Sodium (Protonix Ec Tab) 40 mg PO DAILY [facility] Last Admin: 12/12/17 09:03 Dose: 40 mg Zolpidem Tartrate (Ambien) 5 mg PO HS PRN PRN Reason: Insomnia Physical Exam - Additional Findings Additional findings: Physical exam; pt is obese , alert,well oriented,in no acute distress. neck; supple, no adenopathy chest; Air entry good no rales or rhonchi heart; RSR, no murmur Abd; soft, no mass palpable,liver ans spleen are both prominent. Results - Vital Signs Recent Vital Signs: Last Vital Signs Temp 98.3 F 12/12/17 08:00 Pulse 82 12/12/17 09:05 Resp 20 12/12/17 08:00 BP 100/55 L 12/12/17 09:05 Pulse Ox 98 12/12/17 08:00 - Labs Result Diagrams: 12/11/17 19:15 12/11/17 19:15 Labs: Laboratory Results - last 24 hr 12/11/17 12/11/17 12/11/17 18:42 19:15 19:15 WBC 2.7 L RBC 1.95 L Hgb 4.2 L* D Hct 14.3 L MCV 73.6 L D MCH 21.7 L MCHC 29.4 L RDW 17.7 H Plt Count 83 L D MPV 11.0 Neut % (Auto) 66.4 Lymph % (Auto) 22.7 [place] % (Auto) 7.3 Eos % (Auto) 2.7 Baso % (Auto) 0.9 Neut # (Auto) 1.8 Lymph # (Auto) 0.6 L [place] # (Auto) 0.2 Eos # (Auto) 0.1 Baso # (Auto) 0.0 Retic Count PT INR APTT Sodium 135 Potassium 4.4 Chloride 106 Carbon Dioxide 22 Anion Gap 11 BUN 15 Creatinine 0.7 Est GFR ( Amer) > 60 Est GFR (Non-Af Amer) > 60 POC Glucose (mg/dL) 261 H Random Glucose 217 H Calcium 7.9 L Iron TIBC % Saturation Total Bilirubin 0.7 AST 28 ALT 20 Alkaline Phosphatase 72 Troponin I < 0.0120 NT-Pro-B Natriuret Pep Total Protein 6.7 Albumin 3.1 L D Globulin 3.6 Albumin/Globulin Ratio 0.9 L TSH 3rd Generation 4.81 H Urine Color Urine Clarity Urine pH Ur Specific [place] Urine Protein Urine Glucose (UA) Urine Ketones Urine Blood Urine Nitrate Urine Bilirubin Urine Urobilinogen Ur Leukocyte Esterase Urine RBC (Auto) Urine Microscopic WBC Ur Squamous Epith Cells Blood Type Antibody Screen Crossmatch BBK History Checked 12/11/17 12/11/17 12/11/17 19:15 19:15 20:50 WBC RBC Hgb Hct MCV MCH MCHC RDW Plt Count MPV Neut % (Auto) Lymph % (Auto) [place] % (Auto) Eos % (Auto) Baso % (Auto) Neut # (Auto) Lymph # (Auto) [place] # (Auto) Eos # (Auto) Baso # (Auto) Retic Count PT 13.2 H INR 1.2 APTT 30.3 Sodium Potassium Chloride Carbon Dioxide Anion Gap BUN Creatinine Est GFR ( Amer) Est GFR (Non-Af Amer) POC Glucose (mg/dL) Random Glucose Calcium Iron TIBC % Saturation Total Bilirubin AST ALT Alkaline Phosphatase Troponin I NT-Pro-B Natriuret Pep 416 Total Protein Albumin Globulin Albumin/Globulin Ratio TSH 3rd Generation Urine Color Yellow Urine Clarity Clear Urine pH 6.0 Ur Specific [place] 1.011 Urine Protein Negative Urine Glucose (UA) Neg Urine Ketones Negative Urine Blood Negative Urine Nitrate Negative Urine Bilirubin Negative Urine Urobilinogen 0.2-1.0 Ur Leukocyte Esterase Trace Urine RBC (Auto) 2 Urine Microscopic WBC 6 H Ur Squamous Epith Cells < 1 Blood Type Antibody Screen Crossmatch BBK History Checked 12/11/17 12/12/17 12/12/17 21:42 00:46 01:55 WBC RBC Hgb Hct MCV MCH MCHC RDW Plt Count MPV Neut % (Auto) Lymph % (Auto) [place] % (Auto) Eos % (Auto) Baso % (Auto) Neut # (Auto) Lymph # (Auto) [place] # (Auto) Eos # (Auto) Baso # (Auto) Retic Count PT INR APTT Sodium Potassium Chloride Carbon Dioxide Anion Gap BUN Creatinine Est GFR ( Amer) Est GFR (Non-Af Amer) POC Glucose (mg/dL) 144 H Random Glucose Calcium Iron < 10 L TIBC 434 % Saturation 12 L Total Bilirubin AST ALT Alkaline Phosphatase Troponin I NT-Pro-B Natriuret Pep Total Protein Albumin Globulin Albumin/Globulin Ratio TSH 3rd Generation Urine Color Urine Clarity Urine pH Ur Specific [place] Urine Protein Urine Glucose (UA) Urine Ketones Urine Blood Urine Nitrate Urine Bilirubin Urine Urobilinogen Ur Leukocyte Esterase Urine RBC (Auto) Urine Microscopic WBC Ur Squamous Epith Cells Blood Type A POSITIVE Antibody Screen Negative Crossmatch See Detail BBK History Checked Patient has bt 12/12/17 12/12/17 01:55 06:38 WBC RBC Hgb Hct MCV MCH MCHC RDW Plt Count MPV Neut % (Auto) Lymph % (Auto) [place] % (Auto) Eos % (Auto) Baso % (Auto) Neut # (Auto) Lymph # (Auto) [place] # (Auto) Eos # (Auto) Baso # (Auto) Retic Count 3.2 H PT INR APTT Sodium Potassium Chloride Carbon Dioxide Anion Gap BUN Creatinine Est GFR ( Amer) Est GFR (Non-Af Amer) POC Glucose (mg/dL) 169 H Random Glucose Calcium Iron TIBC % Saturation Total Bilirubin AST ALT Alkaline Phosphatase Troponin I NT-Pro-B Natriuret Pep Total Protein Albumin Globulin Albumin/Globulin Ratio TSH 3rd Generation Urine Color Urine Clarity Urine pH Ur Specific [place] Urine Protein Urine Glucose (UA) Urine Ketones Urine Blood Urine Nitrate Urine Bilirubin Urine Urobilinogen Ur Leukocyte Esterase Urine RBC (Auto) Urine Microscopic WBC Ur Squamous Epith Cells Blood Type Antibody Screen Crossmatch BBK History Checked Assessment & Plan - Assessment and Plan (Free Text) Assessment: Impression Pancytopenia could be secondary to liver cirrhosis with hypersplenism. or b12 deficiency which she has had in the past Iron deficiency secondary to acute on chronic GI bleeding. Plan: Plan; will await the result of the tests you have ordered, the hgb post transfusion and stool for occult blood if above are negative will do a bbone marrow. - Date & Time Date: 12/12/17 Time: 11:02
[2017-12-12 11:10] LABS: MEAN CELL VOLUME 77.6 fl (81.0-99.0); MEAN CORPUSCULAR HEMOGLOBIN 24.2 pg (27.0-31.0); MEAN CORPUSCULAR HGB CONC 31.2 g/dL (33.0-37.0); RBC 2.54 Mil/uL (3.80-5.20); WHITE BLOOD COUNT 2.9 K/uL (4.8-10.8)
[2017-12-12 11:16] LABS: HEMOGLOBIN 6.2 g/dL (12.0-16.0)
[2017-12-12 11:40] LABS: LDL CHOLESTEROL 32 mg/dL (0-129)
[2017-12-12 11:43] LABS: T4 8.37 ug/dl (5.5-11.0)
[2017-12-12 11:51] LABS: ALB/GLOB RATIO 0.9 (1.0-2.1); ALT/SGPT 17 U/L (9-52); AST/SGOT 27 U/L (14-36); BLOOD UREA NITROGEN 12 mg/dl (7-17); CALCIUM 8.1 mg/dL (8.4-10.2); GFR AFRICAN-AMERICAN > 60; GFR NON-AFRICAN AMERICAN > 60; HDL CHOLESTEROL 35 MG/DL (30-70)
[2017-12-12 11:57] LABS: T3 0.767 nmol/L (1.49-2.60)
[2017-12-12] MEDS: Albuterol HFA 90 mcg/actuation (8 g) INH SCH ×2 (12:57→22:11)
--- NOTE | 2017-12-12 15:16 | CP.PCM.CON ---
History of Present Illness - History of Present Illness History of Present Illness: Consultation for evaluation of chest pain HPI: 62 year old female with hx of HTN, DM, colon ca s/p resection admitted with severe symptomatic anemia. Got 2 units of prbc's yesterday with appropriate response. Today while she was about to have her 3rd unit of prbc started having constant substernal pressure like sensation. Denies any radiation or associated SOB. Review of Systems - Review of Systems Systems not reviewed;Unavailable: Acuity of Condition - Constitutional Constitutional: As Per HPI - EENT Eyes: As Per HPI Ears: As Per HPI Nose/Mouth/Throat: As Per HPI - Breasts Breasts: As Per HPI - Cardiovascular Cardiovascular: As Per HPI - Respiratory Respiratory: As Per HPI - Gastrointestinal Gastrointestinal: As Per HPI - Genitourinary Genitourinary: As Per HPI - Reproductive: Female Reproductive:Female: As Per HPI - Menstruation Menstruation: As Per HPI - Musculoskeletal Musculoskeletal: As Per HPI - Integumentary Integumentary: As Per HPI - Neurological Neurological: As Per HPI - Psychiatric Psychiatric: As Per HPI - Endocrine Endocrine: As Per HPI - Hematologic/Lymphatic Hematologic: As Per HPI Past Patient History - Past Medical History & Family History Past Medical History?: Yes - Past Social History Smoking Status: Never Smoked - CARDIAC Hx Hypercholesterolemia: Yes Hx Hypertension: Yes - PULMONARY Hx Asthma: Yes Hx Bronchitis: Yes - NEUROLOGICAL Hx Seizures: No - HEENT Hx HEENT Problems: No - RENAL Hx Chronic Kidney Disease: No - ENDOCRINE/METABOLIC Hx Hypothyroidism: Yes - HEMATOLOGICAL/ONCOLOGICAL Hx Anemia: Yes Hx Human Immunodeficiency Virus (HIV): No - INTEGUMENTARY Hx Dermatological Problems: No - MUSCULOSKELETAL/RHEUMATOLOGICAL Hx Musculoskeletal Disorders: Yes Hx Falls: Yes - GASTROINTESTINAL Hx Gastrointestinal Disorders: Yes Hx Bowel Surgery: Yes Hx Colostomy: Yes (reversed 2008) Hx Gastroesophageal Reflux: Yes Other/Comment: colon ca - GENITOURINARY/GYNECOLOGICAL Hx Sexually Transmitted Disorders: No - PSYCHIATRIC Hx Anxiety: Yes Hx Depression: Yes Hx Substance Use: No - SURGICAL HISTORY Hx Appendectomy: Yes Hx Cholecystectomy: Yes - ANESTHESIA Hx Anesthesia: Yes Hx Anesthesia Reactions: No Hx Malignant Hyperthermia: No Meds Allergies/Adverse Reactions: Allergies Allergy/AdvReac Type Severity Reaction Status Date / Time No Known Allergies Allergy Verified 09/05/17 13:02 - Medications Medications: Current Medications Albuterol (Ventolin Hfa 90 Mcg/Actuation (8 G)) 1 puff INH Q6H [facility] Last Admin: 12/12/17 12:57 Dose: 1 inhaler Ascorbic Acid (Vitamin C 500 Mg Tab) 500 mg PO DAILY [facility] Last Admin: 12/12/17 09:05 Dose: 500 mg Atorvastatin Calcium (Lipitor) 20 mg PO DAILY [facility] Last Admin: 12/12/17 09:00 Dose: 20 mg Clopidogrel Bisulfate (Plavix) 75 mg PO DAILY [facility] Last Admin: 12/12/17 09:02 Dose: 75 mg Cyanocobalamin (Vitamin B12 1000 Mcg Tab) 1,000 mcg PO DAILY [facility] Last Admin: 12/12/17 09:05 Dose: 1,000 mcg Docusate Sodium (Colace) 100 mg PO BID [facility] Last Admin: 12/12/17 08:56 Dose: 100 mg Famotidine (Pepcid) 20 mg PO BID [facility] Last Admin: 12/12/17 09:02 Dose: 20 mg Ferrous Sulfate (Feosol) 325 mg PO DAILY [facility] Last Admin: 12/12/17 08:57 Dose: 325 mg Gabapentin (Neurontin) 300 mg PO TID [facility] Last Admin: 12/12/17 12:33 Dose: Not Given Insulin Detemir (Levemir) 34 units SC HS [facility] Insulin Human Lispro (Humalog) 15 units SC DAILY [facility] Last Admin: 12/12/17 08:58 Dose: 15 units Levothyroxine Sodium (Synthroid) 150 mcg PO DAILY@0630 [facility] Last Admin: 12/12/17 09:04 Dose: 150 mcg Lisinopril (Zestril) 20 mg PO DAILY [facility] Last Admin: 12/12/17 09:05 Dose: Not Given Magnesium Oxide (Mag-Ox) 400 mg PO DAILY [facility] Last Admin: 12/12/17 09:00 Dose: 400 mg Mirtazapine (Remeron) 30 mg PO DAILY [facility] Last Admin: 12/12/17 09:03 Dose: 30 mg Naproxen (Naproxen) 500 mg PO Q12 [facility] Last Admin: 12/12/17 09:01 Dose: 500 mg Pantoprazole Sodium (Protonix Ec Tab) 40 mg PO DAILY [facility] Last Admin: 12/12/17 09:03 Dose: 40 mg Zolpidem Tartrate (Ambien) 5 mg PO HS PRN PRN Reason: Insomnia Physical Exam - Constitutional Appears: Well - Head Exam Head Exam: ATRAUMATIC, NORMAL INSPECTION, NORMOCEPHALIC - Eye Exam Eye Exam: EOMI, Normal appearance, PERRL Pupil Exam: NORMAL ACCOMODATION, PERRL - ENT Exam ENT Exam: Mucous Membranes Moist, Normal Exam - Neck Exam Neck exam: Positive for: Normal Inspection - Respiratory Exam Respiratory Exam: Clear to Auscultation Bilateral, NORMAL BREATHING PATTERN - Cardiovascular Exam Cardiovascular Exam: REGULAR RHYTHM - GI/Abdominal Exam GI & Abdominal Exam: Normal Bowel Sounds, Soft. absent: Tenderness - Extremities Exam Extremities exam: Positive for: normal inspection - Back Exam Back exam: NORMAL INSPECTION - Neurological Exam Neurological exam: Alert, CN II-XII Intact, Oriented x3, Reflexes Normal - Psychiatric Exam Psychiatric exam: Normal Affect, Normal Mood - Skin Skin Exam: Dry, Intact, Normal Color, Warm Results - Vital Signs Recent Vital Signs: Last Vital Signs Temp 98.1 F 12/12/17 12:00 Pulse 80 12/12/17 12:00 Resp 18 12/12/17 12:00 BP 105/65 12/12/17 12:00 Pulse Ox 97 12/12/17 12:00 - Labs Result Diagrams: 12/12/17 11:00 12/12/17 11:00 Labs: Laboratory Results - last 24 hr 12/11/17 12/11/17 12/11/17 18:42 19:15 19:15 WBC 2.7 L RBC 1.95 L Hgb 4.2 L* D Hct 14.3 L MCV 73.6 L D MCH 21.7 L MCHC 29.4 L RDW 17.7 H Plt Count 83 L D MPV 11.0 Neut % (Auto) 66.4 Lymph % (Auto) 22.7 Cloud % (Auto) 7.3 Eos % (Auto) 2.7 Baso % (Auto) 0.9 Neut # (Auto) 1.8 Lymph # (Auto) 0.6 L Cloud # (Auto) 0.2 Eos # (Auto) 0.1 Baso # (Auto) 0.0 Retic Count Haptoglobin PT INR APTT Sodium 135 Potassium 4.4 Chloride 106 Carbon Dioxide 22 Anion Gap 11 BUN 15 Creatinine 0.7 Est GFR ( Amer) > 60 Est GFR (Non-Af Amer) > 60 POC Glucose (mg/dL) 261 H Random Glucose 217 H Calcium 7.9 L Iron TIBC % Saturation Total Bilirubin 0.7 AST 28 ALT 20 Alkaline Phosphatase 72 Troponin I < 0.0120 NT-Pro-B Natriuret Pep Total Protein 6.7 Albumin 3.1 L D Globulin 3.6 Albumin/Globulin Ratio 0.9 L Triglycerides Cholesterol LDL Cholesterol Direct HDL Cholesterol Vitamin B12 Thyroxine (T4) Total T3 TSH 3rd Generation 4.81 H Urine Color Urine Clarity Urine pH Ur Specific [place] Urine Protein Urine Glucose (UA) Urine Ketones Urine Blood Urine Nitrate Urine Bilirubin Urine Urobilinogen Ur Leukocyte Esterase Urine RBC (Auto) Urine Microscopic WBC Ur Squamous Epith Cells Blood Type Antibody Screen Crossmatch BBK History Checked 12/11/17 12/11/17 12/11/17 19:15 19:15 20:50 WBC RBC Hgb Hct MCV MCH MCHC RDW Plt Count MPV Neut % (Auto) Lymph % (Auto) Cloud % (Auto) Eos % (Auto) Baso % (Auto) Neut # (Auto) Lymph # (Auto) Cloud # (Auto) Eos # (Auto) Baso # (Auto) Retic Count Haptoglobin PT 13.2 H INR 1.2 APTT 30.3 Sodium Potassium Chloride Carbon Dioxide Anion Gap BUN Creatinine Est GFR ( Amer) Est GFR (Non-Af Amer) POC Glucose (mg/dL) Random Glucose Calcium Iron TIBC % Saturation Total Bilirubin AST ALT Alkaline Phosphatase Troponin I NT-Pro-B Natriuret Pep 416 Total Protein Albumin Globulin Albumin/Globulin Ratio Triglycerides Cholesterol LDL Cholesterol Direct HDL Cholesterol Vitamin B12 Thyroxine (T4) Total T3 TSH 3rd Generation Urine Color Yellow Urine Clarity Clear Urine pH 6.0 Ur Specific [place] 1.011 Urine Protein Negative Urine Glucose (UA) Neg Urine Ketones Negative Urine Blood Negative Urine Nitrate Negative Urine Bilirubin Negative Urine Urobilinogen 0.2-1.0 Ur Leukocyte Esterase Trace Urine RBC (Auto) 2 Urine Microscopic WBC 6 H Ur Squamous Epith Cells < 1 Blood Type Antibody Screen Crossmatch BBK History Checked 12/11/17 12/12/17 12/12/17 21:42 00:46 01:55 WBC RBC Hgb Hct MCV MCH MCHC RDW Plt Count MPV Neut % (Auto) Lymph % (Auto) Cloud % (Auto) Eos % (Auto) Baso % (Auto) Neut # (Auto) Lymph # (Auto) Cloud # (Auto) Eos # (Auto) Baso # (Auto) Retic Count Haptoglobin PT INR APTT Sodium Potassium Chloride Carbon Dioxide Anion Gap BUN Creatinine Est GFR ( Amer) Est GFR (Non-Af Amer) POC Glucose (mg/dL) 144 H Random Glucose Calcium Iron < 10 L TIBC 434 % Saturation 12 L Total Bilirubin AST ALT Alkaline Phosphatase Troponin I NT-Pro-B Natriuret Pep Total Protein Albumin Globulin Albumin/Globulin Ratio Triglycerides Cholesterol LDL Cholesterol Direct HDL Cholesterol Vitamin B12 Thyroxine (T4) Total T3 TSH 3rd Generation Urine Color Urine Clarity Urine pH Ur Specific [place] Urine Protein Urine Glucose (UA) Urine Ketones Urine Blood Urine Nitrate Urine Bilirubin Urine Urobilinogen Ur Leukocyte Esterase Urine RBC (Auto) Urine Microscopic WBC Ur Squamous Epith Cells Blood Type A POSITIVE Antibody Screen Negative Crossmatch See Detail BBK History Checked Patient has bt 12/12/17 12/12/17 12/12/17 01:55 01:55 06:38 WBC RBC Hgb Hct MCV MCH MCHC RDW Plt Count MPV Neut % (Auto) Lymph % (Auto) Cloud % (Auto) Eos % (Auto) Baso % (Auto) Neut # (Auto) Lymph # (Auto) Cloud # (Auto) Eos # (Auto) Baso # (Auto) Retic Count 3.2 H Haptoglobin 96.2 PT INR APTT Sodium Potassium Chloride Carbon Dioxide Anion Gap BUN Creatinine Est GFR ( Amer) Est GFR (Non-Af Amer) POC Glucose (mg/dL) 169 H Random Glucose Calcium Iron TIBC % Saturation Total Bilirubin AST ALT Alkaline Phosphatase Troponin I NT-Pro-B Natriuret Pep Total Protein Albumin Globulin Albumin/Globulin Ratio Triglycerides Cholesterol LDL Cholesterol Direct HDL Cholesterol Vitamin B12 Thyroxine (T4) Total T3 TSH 3rd Generation Urine Color Urine Clarity Urine pH Ur Specific [place] Urine Protein Urine Glucose (UA) Urine Ketones Urine Blood Urine Nitrate Urine Bilirubin Urine Urobilinogen Ur Leukocyte Esterase Urine RBC (Auto) Urine Microscopic WBC Ur Squamous Epith Cells Blood Type Antibody Screen Crossmatch BBK History Checked 12/12/17 12/12/17 11:00 11:00 WBC 2.9 L RBC 2.54 L Hgb 6.2 L* D Hct 19.7 L MCV 77.6 L D MCH 24.2 L MCHC 31.2 L RDW 19.0 H Plt Count 84 L MPV Neut % (Auto) Lymph % (Auto) Cloud % (Auto) Eos % (Auto) Baso % (Auto) Neut # (Auto) Lymph # (Auto) Cloud # (Auto) Eos # (Auto) Baso # (Auto) Retic Count Haptoglobin PT INR APTT Sodium 138 Potassium 3.5 L Chloride 107 Carbon Dioxide 22 Anion Gap 13 BUN 12 Creatinine 0.6 L Est GFR ( Amer) > 60 Est GFR (Non-Af Amer) > 60 POC Glucose (mg/dL) Random Glucose 131 H Calcium 8.1 L Iron TIBC % Saturation Total Bilirubin 1.9 H AST 27 ALT 17 Alkaline Phosphatase 67 Troponin I NT-Pro-B Natriuret Pep Total Protein 6.3 Albumin 3.0 L Globulin 3.3 Albumin/Globulin Ratio 0.9 L Triglycerides 87 D Cholesterol 93 LDL Cholesterol Direct 32 HDL Cholesterol 35 Vitamin B12 615 Thyroxine (T4) 8.37 Total T3 0.767 L TSH 3rd Generation 5.32 H Urine Color Urine Clarity Urine pH Ur Specific [place] Urine Protein Urine Glucose (UA) Urine Ketones Urine Blood Urine Nitrate Urine Bilirubin Urine Urobilinogen Ur Leukocyte Esterase Urine RBC (Auto) Urine Microscopic WBC Ur Squamous Epith Cells Blood Type Antibody Screen Crossmatch BBK History Checked Assessment & Plan (1) Acute chest pain Assessment and Plan: EKG from last evening shows baseline ST depressions in inferolateral leads serial cardiac enzymes EKG echo Status: Acute (2) Anemia Assessment and Plan: transfuse to keep Hgb > 8 GI evaluation Status: Acute
--- NOTE | 2017-12-12 16:32 | PCM.RRT ---
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 Upon arrival, patient is AAO, verbally responsive, follows commands, VS: 106/65, HR 89, 100 % sat. Patient reports left chest pain, headache and UE numbness. Prior to [employer] OPERATOR, patient was seen by Dr. Etienne who ordered EKG, Troponin and Nitrate. EKG was reviewed; no acute changes, negative troponin. Patient was given tylenol for headache and C/w Anxiety medication. Will follow up if needed. Case discussed with Dr. Cooper - Neurological Status (Select all that apply): Alert, Responsive, Oriented, Verbal, Follows Commands - Respiratory Oxygen Delivery Method: Room Air - Constitutional Appears: No Acute Distress - Head Head Exam: NORMAL INSPECTION - Eyes Eye Exam: Normal appearance - Respiratory Exam Respiratory Exam: Clear to Ausculation Bilateral, NORMAL BREATHING PATTERN - Cardiovascular Exam Cardiovascular Exam: REGULAR RHYTHM - GI/Abdominal Exam GI & Abdominal Exam: Soft, Normal Bowel Sounds - Neurological Exam Neurological Exam: Alert, Awake, Oriented x3
[2017-12-12] MEDS: Insulin Detemir 100 Units/ml Inj SC SCH (22:12)
[2017-12-13] MEDS: Albuterol HFA 90 mcg/actuation (8 g) INH SCH ×3 (01:36→12:15)
[2017-12-13] MEDS: Levothyroxine 150 MCG TAB PO SCH (06:51)
--- NOTE | 2017-12-13 08:46 | CARD ---
APPROVED REPORT EKG Measurement Heart [id number] <Conclusion> Normal sinus rhythm ST & T wave abnormality, consider inferolateral ischemia Abnormal ECG
[2017-12-13] MEDS: Naproxen 500 MG TAB PO SCH ×2 (09:49→21:56)
[2017-12-13] MEDS: Pantoprazole 40 mg EC Tab PO SCH (09:52)
[2017-12-13] MEDS: Magnesium Oxide 400 mg Tab UD PO SCH (09:56)
[2017-12-13] MEDS: Insulin Lispro (humaLOG) 100 Units/ml Inj SC SCH (10:14)
[2017-12-13 10:24] LABS: HEMOGLOBIN 7.9 g/dL (12.0-16.0); MEAN CELL VOLUME 80.5 fl (81.0-99.0); MEAN CORPUSCULAR HEMOGLOBIN 26.4 pg (27.0-31.0); MEAN CORPUSCULAR HGB CONC 32.7 g/dL (33.0-37.0); RBC 3.01 Mil/uL (3.80-5.20); RED CELL DISTRIBUTION WIDTH 20.4 % (11.5-14.5); WHITE BLOOD COUNT 3.2 K/uL (4.8-10.8)
--- NOTE | 2017-12-13 13:10 | PN ---
DATE: 12/13/2017 SUBJECTIVE: The patient seen and examined. Interim events noted. Consults noted and appreciated. Rheumatology, Oncology and Cardiology followup and consults and intervention noted and appreciated. The patient remains in progressive care unit, on telemetry monitoring. Sleeping, arousable. Feels better. No chest pain. No shortness of breath. No palpitation. No dizziness. No loss of consciousness. PHYSICAL EXAMINATION: GENERAL: The patient is in no acute distress. VITAL SIGNS: Stable. HEART: S1 and S2, normal and regular. LUNGS: Good bilateral air exchange. ABDOMEN: Soft and nontender. EXTREMITIES: No edema. No calf swelling. No tenderness. No acute ischemia. RN RESIDENTIAL: Exam is essentially unchanged. DIAGNOSTIC DATA: Available diagnostic data reviewed. Hemoglobin of 6.2. The patient received two more units of blood transfusion. Post-transfusion CBC is pending. Telemetry monitoring does not show significant arrhythmias. ASSESSMENT AND PLAN: Overall, the patient's general medical condition is stable. Plan as ordered. Case and plan discussed with the patient. Norm Hull MD
[2017-12-13] MEDS: Bismuth Subsalicylate 262 mg/15 ml Sus (240 ml) PO PRN (16:44)
[2017-12-13] MEDS: Insulin Detemir 100 Units/ml Inj SC SCH (21:57)
[2017-12-14] MEDS: Albuterol HFA 90 mcg/actuation (8 g) INH SCH ×5 (01:20→17:35)
[2017-12-14] MEDS: Levothyroxine 150 MCG TAB PO SCH (06:20)
[2017-12-14] MEDS: Pantoprazole 40 mg EC Tab PO SCH (08:24)
[2017-12-14] MEDS: Naproxen 500 MG TAB PO SCH ×2 (08:28→21:17)
[2017-12-14] MEDS: Insulin Lispro (humaLOG) 100 Units/ml Inj SC SCH (08:29)
[2017-12-14] MEDS: Magnesium Oxide 400 mg Tab UD PO SCH (08:30)
--- NOTE | 2017-12-14 11:12 | CP.PCM.PN ---
Subjective - Date & Time of Evaluation Date of Evaluation: 12/14/17 Time of Evaluation: 11:04 - Subjective Subjective: Pt is [id number] comfortably. She had no complaints today. Her post transfusion hgb was 7.9 gms yesterday. stools were negative for c diff. Have ordered stool for occult blood. Objective - Vital Signs/Intake and Output Vital Signs (last 24 hours): Temp Pulse Resp BP Pulse Ox 97.7 F 73 20 114/69 100 12/14/17 08:06 12/14/17 08:27 12/14/17 08:06 12/14/17 08:27 12/14/17 08:06 - Medications Medications: Current Medications Albuterol (Ventolin Hfa 90 Mcg/Actuation (8 G)) 1 puff INH Q6H [facility] Last Admin: 12/14/17 06:20 Dose: 1 inhaler Ascorbic Acid (Vitamin C 500 Mg Tab) 500 mg PO DAILY [facility] Last Admin: 12/14/17 08:25 Dose: 500 mg Atorvastatin Calcium (Lipitor) 20 mg PO DAILY [facility] Last Admin: 12/14/17 08:26 Dose: 20 mg Bismuth Subsalicylate (Pepto-Bismol) 524 mg PO Q6 PRN PRN Reason: every LBM ,maximum dose x4 dos Last Admin: 12/13/17 16:44 Dose: 524 mg Clopidogrel Bisulfate (Plavix) 75 mg PO DAILY [facility] Last Admin: 12/14/17 08:24 Dose: 75 mg Cyanocobalamin (Vitamin B12 1000 Mcg Tab) 1,000 mcg PO DAILY [facility] Last Admin: 12/14/17 08:25 Dose: 1,000 mcg Docusate Sodium (Colace) 100 mg PO BID [facility] Last Admin: 12/14/17 08:24 Dose: Not Given Famotidine (Pepcid) 20 mg PO BID [facility] Last Admin: 12/14/17 08:26 Dose: 20 mg Ferrous Sulfate (Feosol) 325 mg PO DAILY [facility] Last Admin: 12/14/17 08:24 Dose: 325 mg Gabapentin (Neurontin) 300 mg PO TID [facility] Last Admin: 12/14/17 08:27 Dose: 300 mg Insulin Detemir (Levemir) 34 units SC HS [facility] Last Admin: 12/13/17 21:57 Dose: 34 units Insulin Human Lispro (Humalog) 15 units SC DAILY [facility] Last Admin: 12/14/17 08:29 Dose: 15 units Levothyroxine Sodium (Synthroid) 150 mcg PO DAILY@0630 [facility] Last Admin: 12/14/17 06:20 Dose: 150 mcg Lisinopril (Zestril) 20 mg PO DAILY [facility] Last Admin: 12/14/17 08:27 Dose: 20 mg Magnesium Oxide (Mag-Ox) 400 mg PO DAILY [facility] Last Admin: 12/14/17 08:30 Dose: 400 mg Metformin HCl (Glucophage) 500 mg PO BIDWM [facility] Last Admin: 12/14/17 08:23 Dose: 500 mg Mirtazapine (Remeron) 30 mg PO DAILY [facility] Last Admin: 12/14/17 08:25 Dose: 30 mg Naproxen (Naproxen) 500 mg PO Q12 [facility] Last Admin: 12/14/17 08:28 Dose: 500 mg Nitrofurantoin Macrocrystals (Macrobid) 100 mg PO Q12 [facility] PRN Reason: Protocol Stop: 12/17/17 09:01 Last Admin: 12/14/17 08:25 Dose: 100 mg Pantoprazole Sodium (Protonix Ec Tab) 40 mg PO DAILY [facility] Last Admin: 12/14/17 08:24 Dose: 40 mg Zolpidem Tartrate (Ambien) 5 mg PO PRN PRN Reason: Insomnia Last Admin: 12/13/17 21:55 Dose: 5 mg - Labs Labs: 12/13/17 10:00 12/12/17 11:00 PT 13.2 Seconds (9.8-13.1) H 12/11/17 19:15 INR 1.2 (0.9-1.2) 12/11/17 19:15 APTT 30.3 Seconds (25.6-37.1) 12/11/17 19:15
--- NOTE | 2017-12-14 12:52 | PN ---
DATE: 12/14/2017 SUBJECTIVE: The patient seen and examined. Interim events noted. Consults noted and appreciated. The patient remains in progressive care unit on telemetry monitoring. The patient is sleepy, arousable. Feels okay. Denies any dizziness, loss of consciousness, chest pain, palpitation, or shortness of breath. PHYSICAL EXAMINATION: GENERAL: The patient is in no acute distress. VITAL SIGNS: Stable. HEART: S1 and S2. Normal and regular. LUNGS: Good bilateral air exchange. ABDOMEN: Soft and nontender. EXTREMITIES: No edema. No calf swelling. No tenderness. No acute ischemia. MOLD HOLDER: Exam is essentially unchanged. DIAGNOSTIC DATA: Available diagnostic data reviewed. Telemetry monitoring does not show significant arrhythmia. ASSESSMENT AND PLAN: Overall, the patient's general medical condition is stable. Plan as ordered. Norm Hull MD
[2017-12-14] MEDS: Insulin Detemir 100 Units/ml Inj SC SCH (21:44)
[2017-12-15] MEDS: Albuterol HFA 90 mcg/actuation (8 g) INH SCH ×5 (00:33→23:07)
[2017-12-15] MEDS: Levothyroxine 150 MCG TAB PO SCH (05:30)
[2017-12-15 05:51] LABS: ALB/GLOB RATIO 0.8 (1.0-2.1); ALBUMIN 3.1 g/dL (3.5-5.0); ALT/SGPT 17 U/L (9-52); AST/SGOT 36 U/L (14-36); BLOOD UREA NITROGEN 13 mg/dl (7-17); CALCIUM 8.5 mg/dL (8.4-10.2); GFR AFRICAN-AMERICAN > 60; GFR NON-AFRICAN AMERICAN > 60
[2017-12-15 05:55] LABS: HEMOGLOBIN 7.3 g/dL (12.0-16.0); MEAN CELL VOLUME 82.6 fl (81.0-99.0); MEAN CORPUSCULAR HEMOGLOBIN 26.3 pg (27.0-31.0); MEAN CORPUSCULAR HGB CONC 31.8 g/dL (33.0-37.0); RBC 2.78 Mil/uL (3.80-5.20); RED CELL DISTRIBUTION WIDTH 21.8 % (11.5-14.5); WHITE BLOOD COUNT 3.2 K/uL (4.8-10.8)
[2017-12-15] MEDS: Magnesium Oxide 400 mg Tab UD PO SCH (09:04)
[2017-12-15] MEDS: Naproxen 500 MG TAB PO SCH (09:04)
[2017-12-15] MEDS: Pantoprazole 40 mg EC Tab PO SCH (09:05)
[2017-12-15] MEDS: Insulin Lispro (humaLOG) 100 Units/ml Inj SC SCH (09:08)
[2017-12-15] MEDS ORDERED: Iohexol 240 (50 ml) PO ONE (11:02)
--- NOTE | 2017-12-15 11:18 | CP.PCM.PN ---
Subjective - Date & Time of Evaluation Date of Evaluation: 12/15/17 Time of Evaluation: 11:13 - Subjective Subjective: Pt c/o some tenderness in the left flank that she has never had before. Her Hgb which was 7.9 yesterday is 7.1 gms today. The stools for occult blood was not yet sent. Will transfuse 1 unit of packed cells today. Suggest a ct scan of the abdomen to r/o occult malignancy. Also suggest a GI eval Objective - Vital Signs/Intake and Output Vital Signs (last 24 hours): Temp Pulse Resp BP Pulse Ox 97.7 F 75 20 110/61 97 12/15/17 08:07 12/15/17 09:08 12/15/17 08:07 12/15/17 09:08 12/15/17 08:07 - Medications Medications: Current Medications Acetaminophen (Tylenol 325mg Tab) 650 mg PO Q6 PRN PRN Reason: Pain, Mild (1-3) Albuterol (Ventolin Hfa 90 Mcg/Actuation (8 G)) 1 puff INH Q6H [facility] Last Admin: 12/15/17 07:04 Dose: 1 inhaler Ascorbic Acid (Vitamin C 500 Mg Tab) 500 mg PO DAILY [facility] Last Admin: 12/15/17 09:05 Dose: 500 mg Atorvastatin Calcium (Lipitor) 20 mg PO DAILY [facility] Last Admin: 12/15/17 09:05 Dose: 20 mg Bismuth Subsalicylate (Pepto-Bismol) 524 mg PO Q6 PRN PRN Reason: every LBM ,maximum dose x4 dos Last Admin: 12/13/17 16:44 Dose: 524 mg Clopidogrel Bisulfate (Plavix) 75 mg PO DAILY [facility] Last Admin: 12/15/17 09:05 Dose: 75 mg Cyanocobalamin (Vitamin B12 1000 Mcg Tab) 1,000 mcg PO DAILY [facility] Last Admin: 12/15/17 09:05 Dose: 1,000 mcg Docusate Sodium (Colace) 100 mg PO BID [facility] Last Admin: 12/15/17 09:15 Dose: Not Given Famotidine (Pepcid) 20 mg PO BID [facility] Last Admin: 12/15/17 09:07 Dose: 20 mg Ferrous Sulfate (Feosol) 325 mg PO DAILY [facility] Last Admin: 12/15/17 09:07 Dose: 325 mg Gabapentin (Neurontin) 300 mg PO TID [facility] Last Admin: 12/15/17 09:05 Dose: 300 mg Insulin Detemir (Levemir) 34 units SC HS [facility] Last Admin: 12/14/17 21:44 Dose: 35 units Insulin Human Lispro (Humalog) 15 units SC DAILY [facility] Last Admin: 12/15/17 09:08 Dose: 15 units Iohexol (Omnipaque 240 (50 Ml)) 50 ml PO ONCE ONE Stop: 12/15/17 11:03 Levothyroxine Sodium (Synthroid) 150 mcg PO DAILY@0630 [facility] Last Admin: 12/15/17 05:30 Dose: 150 mcg Lisinopril (Zestril) 20 mg PO DAILY [facility] Last Admin: 12/15/17 09:08 Dose: 20 mg Magnesium Oxide (Mag-Ox) 400 mg PO DAILY [facility] Last Admin: 12/15/17 09:04 Dose: 400 mg Metformin HCl (Glucophage) 500 mg PO BIDWM [facility] Last Admin: 12/15/17 09:05 Dose: 500 mg Mirtazapine (Remeron) 30 mg PO DAILY [facility] Last Admin: 12/15/17 09:07 Dose: 30 mg Naproxen (Naproxen) 500 mg PO Q12 [facility] Last Admin: 12/15/17 09:04 Dose: 500 mg Nitrofurantoin Macrocrystals (Macrobid) 100 mg PO Q12 [facility] PRN Reason: Protocol Stop: 12/17/17 09:01 Last Admin: 12/15/17 09:04 Dose: 100 mg Pantoprazole Sodium (Protonix Ec Tab) 40 mg PO DAILY [facility] Last Admin: 12/15/17 09:05 Dose: 40 mg - Labs Labs: 12/15/17 05:10 12/15/17 05:10 PT 13.2 Seconds (9.8-13.1) H 12/11/17 19:15 INR 1.2 (0.9-1.2) 12/11/17 19:15 APTT 30.3 Seconds (25.6-37.1) 12/11/17 19:15
[2017-12-15] MEDS ORDERED: Iohexol 300 100 ML IJ ONE (13:43)
[2017-12-15] MEDS ORDERED: Sodium Chloride 0.9% 50 ML IV ONE (13:44)
--- NOTE | 2017-12-15 14:49 | CT ---
PROCEDURE: CT Abdomen and Pelvis with contrast HISTORY: Abdominal pain. Relevant medical history: Cirrhosis, colon cancer. Relevant surgical history: Hysterectomy, appendectomy, cholecystectomy. COMPARISON: 12/06/2013, 03/14/2017, 10/14/[address] scans of the abdomen and pelvis TECHNIQUE: Contrast dose: 95 cc Omnipaque 300 Radiation dose: Total exam DLP = 929.37 mGy-cm. This CT exam was performed using one or more of the following dose reduction techniques: Automated exposure control, adjustment of the mA and/or kV according to patient size, and/or use of iterative reconstruction technique. FINDINGS: LOWER THORAX: Trace pleural effusion unilateral, right side. LIVER: Cirrhotic liver. Evidence of portal hypertension/ venous varicosities without portal vein thrombosis. No focal hepatic masses. GALLBLADDER AND BILE DUCTS: Status post cholecystectomy. No abnormality is seen in the gallbladder fossa. PANCREAS: Atrophic pancreas without focal abnormality. SPLEEN: Stable splenomegaly. Large left upper quadrant varicosities unchanged. Patent splenic vein. ADRENALS: Unremarkable. No mass. KIDNEYS AND URETERS: Unremarkable. No hydronephrosis. No solid mass. VASCULATURE: Unremarkable. No aortic aneurysm. BOWEL: Prior partial colectomy with colo enteric anastomosis again identified. No discrete mass at the anastomotic suture line. Thickening of the distal small bowel likely technique, that specific loop of distal bowel is collapsed. APPENDIX: Prior appendectomy. PERITONEUM: Unremarkable. No free fluid. No free air. LYMPH NODES: Unremarkable. No enlarged lymph nodes. BLADDER: Unremarkable. REPRODUCTIVE: Prior hysterectomy BONES: No acute fracture. OTHER FINDINGS: None. IMPRESSION: No acute findings related to/accounting for the clinical presentation. Stable hepatosplenomegaly. Satisfactory visualization of the colo enteric anastomosis without discrete mass. Soft tissue prominence in the distal loops of small bowel at the anastomotic site likely underfilling.
[2017-12-15] MEDS: Insulin Detemir 100 Units/ml Inj SC SCH (23:06)
--- NOTE | 2017-12-15 23:36 | CP.PCM.CON ---
History of Present Illness - History of Present Illness History of Present Illness: 62 yo female with h/o anemia being followed as outpatient by Dr. Jay admitted with weakness, diarrhea, and severe anemia. Patient had colon cancer in 2010 which was resected and then followed by chemo for one year. Last upper endoscopy was in 2013. No recent colonoscopy. Review of Systems - Constitutional Constitutional: absent: Chills - EENT Eyes: absent: Blind Spots Nose/Mouth/Throat: absent: Epistaxis - Cardiovascular Cardiovascular: absent: Chest Pain - Respiratory Respiratory: absent: Dyspnea - Gastrointestinal Gastrointestinal: Abdominal Pain Past Patient History - Past Medical History & Family History Past Medical History?: Yes - Past Social History Smoking Status: Never Smoked - CARDIAC Hx Hypercholesterolemia: Yes Hx Hypertension: Yes - PULMONARY Hx Asthma: Yes Hx Bronchitis: Yes - NEUROLOGICAL Hx Seizures: No - HEENT Hx HEENT Problems: No - RENAL Hx Chronic Kidney Disease: No - ENDOCRINE/METABOLIC Hx Hypothyroidism: Yes - HEMATOLOGICAL/ONCOLOGICAL Hx Anemia: Yes Hx Human Immunodeficiency Virus (HIV): No - INTEGUMENTARY Hx Dermatological Problems: No - MUSCULOSKELETAL/RHEUMATOLOGICAL Hx Musculoskeletal Disorders: Yes Hx Falls: Yes - GASTROINTESTINAL Hx Gastrointestinal Disorders: Yes Hx Bowel Surgery: Yes Hx Colostomy: Yes (reversed 2008) Hx Gastroesophageal Reflux: Yes Other/Comment: colon ca - GENITOURINARY/GYNECOLOGICAL Hx Sexually Transmitted Disorders: No - PSYCHIATRIC Hx Anxiety: Yes Hx Depression: Yes Hx Substance Use: No - SURGICAL HISTORY Hx Appendectomy: Yes Hx Cholecystectomy: Yes - ANESTHESIA Hx Anesthesia: Yes Hx Anesthesia Reactions: No Hx Malignant Hyperthermia: No Meds Allergies/Adverse Reactions: Allergies Allergy/AdvReac Type Severity Reaction Status Date / Time No Known Allergies Allergy Verified 09/05/17 13:02 - Medications Medications: Current Medications Acetaminophen (Tylenol 325mg Tab) 650 mg PO Q6 PRN PRN Reason: Pain, Mild (1-3) Albuterol (Ventolin Hfa 90 Mcg/Actuation (8 G)) 1 puff INH Q6H [facility] Last Admin: 12/15/17 23:07 Dose: 1 inhaler Ascorbic Acid (Vitamin C 500 Mg Tab) 500 mg PO DAILY [facility] Last Admin: 12/15/17 09:05 Dose: 500 mg Atorvastatin Calcium (Lipitor) 20 mg PO DAILY [facility] Last Admin: 12/15/17 09:05 Dose: 20 mg Bismuth Subsalicylate (Pepto-Bismol) 524 mg PO Q6 PRN PRN Reason: every LBM ,maximum dose x4 dos Last Admin: 12/13/17 16:44 Dose: 524 mg Clopidogrel Bisulfate (Plavix) 75 mg PO DAILY [facility] Last Admin: 12/15/17 09:05 Dose: 75 mg Cyanocobalamin (Vitamin B12 1000 Mcg Tab) 1,000 mcg PO DAILY [facility] Last Admin: 12/15/17 09:05 Dose: 1,000 mcg Docusate Sodium (Colace) 100 mg PO BID [facility] Last Admin: 12/15/17 15:59 Dose: Not Given Famotidine (Pepcid) 20 mg PO BID [facility] Last Admin: 12/15/17 16:01 Dose: 20 mg Ferrous Sulfate (Feosol) 325 mg PO DAILY [facility] Last Admin: 12/15/17 09:07 Dose: 325 mg Gabapentin (Neurontin) 300 mg PO TID [facility] Last Admin: 12/15/17 16:01 Dose: 300 mg Insulin Detemir (Levemir) 34 units SC [facility] Last Admin: 12/15/17 23:06 Dose: 34 units Insulin Human Lispro (Humalog) 15 units SC DAILY [facility] Last Admin: 12/15/17 09:08 Dose: 15 units Levothyroxine Sodium (Synthroid) 150 mcg PO DAILY@0630 [facility] Last Admin: 12/15/17 05:30 Dose: 150 mcg Lisinopril (Zestril) 20 mg PO DAILY [facility] Last Admin: 12/15/17 09:08 Dose: 20 mg Magnesium Oxide (Mag-Ox) 400 mg PO DAILY [facility] Last Admin: 12/15/17 09:04 Dose: 400 mg Metformin HCl (Glucophage) 500 mg PO BIDWM [facility] Last Admin: 12/15/17 16:02 Dose: 500 mg Mirtazapine (Remeron) 30 mg PO DAILY [facility] Last Admin: 12/15/17 09:07 Dose: 30 mg Nitrofurantoin Macrocrystals (Macrobid) 100 mg PO Q12 [facility] PRN Reason: Protocol Stop: 12/17/17 09:01 Last Admin: 12/15/17 23:06 Dose: 100 mg Pantoprazole Sodium (Protonix Ec Tab) 40 mg PO DAILY [facility] Last Admin: 12/15/17 09:05 Dose: 40 mg Physical Exam - Constitutional Appears: No Acute Distress - Head Exam Head Exam: ATRAUMATIC - Eye Exam Eye Exam: Normal appearance - ENT Exam ENT Exam: Normal Exam - Neck Exam Neck exam: Positive for: Normal Inspection - Respiratory Exam Respiratory Exam: Clear to Auscultation Bilateral - Cardiovascular Exam Cardiovascular Exam: REGULAR RHYTHM, +S1, +S2 - GI/Abdominal Exam GI & Abdominal Exam: Normal Bowel Sounds, Soft, Tenderness Additional comments: LLQ tenderness Results - Vital Signs Recent Vital Signs: Last Vital Signs Temp 98.1 F 12/15/17 19:23 Pulse 79 12/15/17 19:23 Resp 20 12/15/17 19:23 BP 108/70 12/15/17 19:23 Pulse Ox 100 12/15/17 19:23 - Labs Result Diagrams: 12/15/17 05:10 12/15/17 05:10 Labs: Laboratory Results - last 24 hr 12/14/17 12/15/17 12/15/17 21:31 05:10 05:10 WBC 3.2 L RBC 2.78 L Hgb 7.3 L Hct 23.0 L MCV 82.6 D MCH 26.3 L MCHC 31.8 L RDW 21.8 H Plt Count 85 L Haptoglobin Sodium 144 Potassium 4.2 Chloride 112 H Carbon Dioxide 23 Anion Gap 13 BUN 13 Creatinine 0.7 Est GFR ( Amer) > 60 Est GFR (Non-Af Amer) > 60 POC Glucose (mg/dL) 294 H Random Glucose 195 H Calcium 8.5 Total Bilirubin 1.0 AST 36 D ALT 17 Alkaline Phosphatase 86 Total Protein 6.7 Albumin 3.1 L Globulin 3.6 Albumin/Globulin Ratio 0.8 L Carcinoembryonic Ag 1.2 Blood Type Antibody Screen Crossmatch BBK History Checked 12/15/17 12/15/17 12/15/17 05:24 11:00 12:10 WBC RBC Hgb Hct MCV MCH MCHC RDW Plt Count Haptoglobin Sodium Potassium Chloride Carbon Dioxide Anion Gap BUN Creatinine Est GFR ( Amer) Est GFR (Non-Af Amer) POC Glucose (mg/dL) 210 H 187 H Random Glucose Calcium Total Bilirubin AST ALT Alkaline Phosphatase Total Protein Albumin Globulin Albumin/Globulin Ratio Carcinoembryonic Ag Blood Type A POSITIVE Antibody Screen Negative Crossmatch See Detail BBK History Checked Patient has bt 12/15/17 12/15/17 12/15/17 14:30 16:02 22:23 WBC RBC Hgb Hct MCV MCH MCHC RDW Plt Count Haptoglobin 55.3 Sodium Potassium Chloride Carbon Dioxide Anion Gap BUN Creatinine Est GFR ( Amer) Est GFR (Non-Af Amer) POC Glucose (mg/dL) 188 H 344 H Random Glucose Calcium Total Bilirubin AST ALT Alkaline Phosphatase Total Protein Albumin Globulin Albumin/Globulin Ratio Carcinoembryonic Ag Blood Type Antibody Screen Crossmatch BBK History Checked Assessment & Plan (1) Anemia Assessment and Plan: Persistent anemia and thrombocytopenia. Evidence of cirrhosis and splenomegaly on CT. Stools so far negative for occult blood. Will do upper and lower endoscopy Friday to look for possible GI bleeding as well as esophageal varices. Status: Acute
[2017-12-16] MEDS: Albuterol HFA 90 mcg/actuation (8 g) INH SCH ×3 (01:30→14:52)
[2017-12-16 05:41] LABS: MEAN CELL VOLUME 82.6 fl (81.0-99.0); MEAN CORPUSCULAR HEMOGLOBIN 26.6 pg (27.0-31.0); MEAN CORPUSCULAR HGB CONC 32.2 g/dL (33.0-37.0); RBC 2.44 Mil/uL (3.80-5.20); RED CELL DISTRIBUTION WIDTH 23.3 % (11.5-14.5); WHITE BLOOD COUNT 2.7 K/uL (4.8-10.8)
[2017-12-16 05:49] LABS: HEMOGLOBIN 6.5 g/dL (12.0-16.0)
[2017-12-16] MEDS: Levothyroxine 150 MCG TAB PO SCH (06:07)
[2017-12-16 06:11] LABS: ALB/GLOB RATIO 0.9 (1.0-2.1); ALBUMIN 3.1 g/dL (3.5-5.0); ALT/SGPT 24 U/L (9-52); AST/SGOT 33 U/L (14-36); BLOOD UREA NITROGEN 13 mg/dl (7-17); CALCIUM 8.2 mg/dL (8.4-10.2); GFR AFRICAN-AMERICAN > 60; GFR NON-AFRICAN AMERICAN > 60
--- NOTE | 2017-12-16 08:45 | PN ---
DATE: 12/15/2017 SUBJECTIVE: The patient seen and examined. Interim events noted. The patient complains of back pain. No chest pain. No shortness of breath. Feels little stronger. PHYSICAL EXAMINATION: GENERAL: The patient is no acute distress. VITAL SIGNS: Stable. HEART: S1 and S2, normal and regular. LUNGS: Good bilateral air exchange. ABDOMEN: Soft and nontender. EXTREMITIES: No edema. No calf swelling. No tenderness. No acute ischemia. CENTRAL NERVOUS SYSTEM: Exam is essentially unchanged. DIAGNOSTIC DATA: Available diagnostic data reviewed. Hemoglobin is 7.3. Telemetry monitoring does not reveal significant arrhythmias. IMPRESSION AND PLAN: Overall, the patient's general medical condition is stable. Plan as ordered. Hematology followup and intervention noted and appreciated. Norm Hull MD
[2017-12-16] MEDS: Insulin Lispro (humaLOG) 100 Units/ml Inj SC SCH (08:55)
[2017-12-16] MEDS: Pantoprazole 40 mg EC Tab PO SCH (08:57)
[2017-12-16] MEDS: Magnesium Oxide 400 mg Tab UD PO SCH (08:57)
[2017-12-16] MEDS ORDERED: Oxycodone/Acetaminophen 5/325 mg Tab PO PRN (09:09)
--- NOTE | 2017-12-16 09:33 | CP.PCM.PN ---
Subjective - Date & Time of Evaluation Date of Evaluation: 12/15/17 Time of Evaluation: 17:00 - Subjective Subjective: TnI -ve will need cardiac w/u once GI w/u complete Objective - Vital Signs/Intake and Output Vital Signs (last 24 hours): Temp Pulse Resp BP Pulse Ox 98.6 F 78 20 118/77 100 12/16/17 08:00 12/16/17 08:57 12/16/17 08:00 12/16/17 08:57 12/16/17 08:00 - Medications Medications: Current Medications Acetaminophen (Tylenol 325mg Tab) 650 mg PO Q6 PRN PRN Reason: Pain, Mild (1-3) Last Admin: 12/16/17 04:18 Dose: 650 mg Albuterol (Ventolin Hfa 90 Mcg/Actuation (8 G)) 1 puff INH Q6H [facility] Last Admin: 12/16/17 06:08 Dose: 1 inhaler Ascorbic Acid (Vitamin C 500 Mg Tab) 500 mg PO DAILY [facility] Last Admin: 12/15/17 09:05 Dose: 500 mg Atorvastatin Calcium (Lipitor) 20 mg PO DAILY [facility] Last Admin: 12/16/17 09:02 Dose: 20 mg Bismuth Subsalicylate (Pepto-Bismol) 524 mg PO Q6 PRN PRN Reason: every LBM ,maximum dose x4 dos Last Admin: 12/13/17 16:44 Dose: 524 mg Clopidogrel Bisulfate (Plavix) 75 mg PO DAILY [facility] Last Admin: 12/16/17 08:56 Dose: 75 mg Cyanocobalamin (Vitamin B12 1000 Mcg Tab) 1,000 mcg PO DAILY [facility] Last Admin: 12/16/17 08:57 Dose: 1,000 mcg Docusate Sodium (Colace) 100 mg PO BID [facility] Last Admin: 12/16/17 08:56 Dose: 100 mg Famotidine (Pepcid) 20 mg PO BID [facility] Last Admin: 12/16/17 08:56 Dose: 20 mg Ferrous Sulfate (Feosol) 325 mg PO DAILY [facility] Last Admin: 12/16/17 08:57 Dose: 325 mg Gabapentin (Neurontin) 300 mg PO TID [facility] Last Admin: 12/16/17 08:56 Dose: 300 mg Insulin Detemir (Levemir) 34 units SC [facility] Last Admin: 12/15/17 23:06 Dose: 34 units Insulin Human Lispro (Humalog) 15 units SC DAILY [facility] Last Admin: 12/16/17 08:55 Dose: 15 units Levothyroxine Sodium (Synthroid) 150 mcg PO DAILY@0630 [facility] Last Admin: 12/16/17 06:07 Dose: 150 mcg Lisinopril (Zestril) 20 mg PO DAILY [facility] Last Admin: 12/16/17 08:57 Dose: 20 mg Magnesium Oxide (Mag-Ox) 400 mg PO DAILY [facility] Last Admin: 12/16/17 08:57 Dose: 400 mg Metformin HCl (Glucophage) 500 mg PO BIDWM [facility] Last Admin: 12/16/17 08:56 Dose: 500 mg Mirtazapine (Remeron) 30 mg PO DAILY [facility] Last Admin: 12/16/17 08:56 Dose: 30 mg Nitrofurantoin Macrocrystals (Macrobid) 100 mg PO Q12 [facility] PRN Reason: Protocol Stop: 12/17/17 09:01 Last Admin: 12/16/17 08:56 Dose: 100 mg Oxycodone/Acetaminophen (Percocet 5/325 Mg Tab) 1 tab PO Q6 PRN PRN Reason: Pain, severe (8-10) Stop: 12/19/17 09:10 Pantoprazole Sodium (Protonix Ec Tab) 40 mg PO DAILY [facility] Last Admin: 12/16/17 08:57 Dose: 40 mg - Labs Labs: 12/16/17 04:20 12/16/17 04:20 PT 13.2 Seconds (9.8-13.1) H 12/11/17 19:15 INR 1.2 (0.9-1.2) 12/11/17 19:15 APTT 30.3 Seconds (25.6-37.1) 12/11/17 19:15 - Constitutional Appears: Well - Head Exam Head Exam: ATRAUMATIC, NORMAL INSPECTION, NORMOCEPHALIC - Eye Exam Eye Exam: EOMI, Normal appearance, PERRL Pupil Exam: NORMAL ACCOMODATION, PERRL - ENT Exam ENT Exam: Mucous Membranes Moist, Normal Exam - Neck Exam Neck Exam: Full ROM, Normal Inspection. absent: Lymphadenopathy - Respiratory Exam Respiratory Exam: Clear to Ausculation Bilateral, NORMAL BREATHING PATTERN - Cardiovascular Exam Cardiovascular Exam: REGULAR RHYTHM, +S1, +S2. absent: Murmur - GI/Abdominal Exam GI & Abdominal Exam: Soft, Normal Bowel Sounds. absent: Tenderness - Extremities Exam Extremities Exam: Full ROM, Normal Capillary Refill, Normal Inspection. absent : Joint Swelling, Pedal Edema - Back Exam Back Exam: NORMAL INSPECTION - Neurological Exam Neurological Exam: Alert, Awake, CN II-XII Intact, Oriented x3 - Psychiatric Exam Psychiatric exam: Normal Affect, Normal Mood - Skin Skin Exam: Dry, Intact, Normal Color, Warm Assessment and Plan (1) Acute chest pain Assessment & Plan: etiology ? demand ischemia acs ruled out will need cardiac evaluation once GI eval completed add low dose bb hold plavix for now Status: Acute (2) Anemia Assessment & Plan: GI w/u PPI hold plavix for now add low dose BB Status: Acute
[2017-12-16] MEDS ORDERED: Lidocaine 1% Inj (20ml) ONE (10:18)
--- NOTE | 2017-12-16 10:39 | PCM.SURG1 ---
Surgeon's Initial Post Op Note - Surgeon's Notes Surgeon: Julius Bundy MD [place] Operator: NONE Type of Anesthesia: Local Pre-Operative Diagnosis: Poor venous access Operative Findings: US showed a patent right basilic vein. Post-Operative Diagnosis: Poor venous access Operation Performed: Single lumen picc right basilic vein, 35 cm. Tip is in the SVC. Specimen/Specimens Removed: NONE Estimated Blood Loss: EBL {In ML}: 2 Blood Products Given: N/A Drains Used: No Drains Post-Op Condition: Fair Date of Surgery/Procedure: 12/16/17 Time of Surgery/Procedure: 10:35
[2017-12-16] MEDS ORDERED: Magnesium Citrate Oral SOL (300 ml) PO ONE ×2 (11:04→21:00)
--- NOTE | 2017-12-16 11:57 | CP.PCM.PN ---
Subjective - Date & Time of Evaluation Date of Evaluation: 12/16/17 Time of Evaluation: 11:55 - Subjective Subjective: Pt is hjaving a blood transfusion today. she will also have a endoscopy and colonoscopy done in .e am. Objective - Vital Signs/Intake and Output Vital Signs (last 24 hours): Temp Pulse Resp BP Pulse Ox 97.0 F L 84 18 113/31 L 99 12/16/17 10:43 12/16/17 10:43 12/16/17 10:43 12/16/17 10:43 12/16/17 10:43 - Medications Medications: Current Medications Acetaminophen (Tylenol 325mg Tab) 650 mg PO Q6 PRN PRN Reason: Pain, Mild (1-3) Last Admin: 12/16/17 04:18 Dose: 650 mg Albuterol (Ventolin Hfa 90 Mcg/Actuation (8 G)) 1 puff INH Q6H [facility] Last Admin: 12/16/17 06:08 Dose: 1 inhaler Ascorbic Acid (Vitamin C 500 Mg Tab) 500 mg PO DAILY [facility] Last Admin: 12/16/17 11:53 Dose: 500 mg Atorvastatin Calcium (Lipitor) 20 mg PO DAILY [facility] Last Admin: 12/16/17 09:02 Dose: 20 mg Bismuth Subsalicylate (Pepto-Bismol) 524 mg PO Q6 PRN PRN Reason: every LBM ,maximum dose x4 dos Last Admin: 12/13/17 16:44 Dose: 524 mg Clopidogrel Bisulfate (Plavix) 75 mg PO DAILY [facility] Last Admin: 12/16/17 08:56 Dose: 75 mg Cyanocobalamin (Vitamin B12 1000 Mcg Tab) 1,000 mcg PO DAILY [facility] Last Admin: 12/16/17 08:57 Dose: 1,000 mcg Docusate Sodium (Colace) 100 mg PO BID [facility] Last Admin: 12/16/17 08:56 Dose: 100 mg Famotidine (Pepcid) 20 mg PO BID [facility] Last Admin: 12/16/17 08:56 Dose: 20 mg Ferrous Sulfate (Feosol) 325 mg PO DAILY [facility] Last Admin: 12/16/17 08:57 Dose: 325 mg Gabapentin (Neurontin) 300 mg PO TID [facility] Last Admin: 12/16/17 08:56 Dose: 300 mg Insulin Detemir (Levemir) 34 units SC HS [facility] Last Admin: 12/15/17 23:06 Dose: 34 units Insulin Human Lispro (Humalog) 15 units SC DAILY [facility] Last Admin: 12/16/17 08:55 Dose: 15 units Levothyroxine Sodium (Synthroid) 150 mcg PO DAILY@0630 [facility] Last Admin: 12/16/17 06:07 Dose: 150 mcg Lisinopril (Zestril) 20 mg PO DAILY [facility] Last Admin: 12/16/17 08:57 Dose: 20 mg Magnesium Oxide (Mag-Ox) 400 mg PO DAILY [facility] Last Admin: 12/16/17 08:57 Dose: 400 mg Metformin HCl (Glucophage) 500 mg PO BIDWM [facility] Last Admin: 12/16/17 08:56 Dose: 500 mg Mirtazapine (Remeron) 30 mg PO DAILY [facility] Last Admin: 12/16/17 08:56 Dose: 30 mg Nitrofurantoin Macrocrystals (Macrobid) 100 mg PO Q12 [facility] PRN Reason: Protocol Stop: 12/17/17 09:01 Last Admin: 12/16/17 08:56 Dose: 100 mg Oxycodone/Acetaminophen (Percocet 5/325 Mg Tab) 1 tab PO Q6 PRN PRN Reason: Pain, severe (8-10) Stop: 12/19/17 09:10 Last Admin: 12/16/17 09:32 Dose: 1 tab Pantoprazole Sodium (Protonix Ec Tab) 40 mg PO DAILY [facility] Last Admin: 12/16/17 08:57 Dose: 40 mg - Labs Labs: 12/16/17 04:20 12/16/17 04:20 PT 13.2 Seconds (9.8-13.1) H 12/11/17 19:15 INR 1.2 (0.9-1.2) 12/11/17 19:15 APTT 30.3 Seconds (25.6-37.1) 12/11/17 19:15
--- NOTE | 2017-12-16 12:02 | VASCULAR ---
PROCEDURE: Date of procedure: 12/16/2017 Procedure: 1. Placement of a right arm PICC with ultrasound and fluoroscopic guidance, CPT 60456 2. PICC tip confirmation with spot radiograph and is in the superior vena cava Medications: 1 percent lidocaine Total Fluoro time: 3.6 seconds Radiation: 0.56 mGy EBL: 2 cc HISTORY: Poor venous access TECHNIQUE: Following informed consent and procedure time-out, the patient was placed supine on the interventional table and the right arm prepped and draped in the usual sterile fashion. Ultrasound showed a patent and compressible right basilic vein. After the skin was anesthetized with lidocaine, the basilic vein was accessed with micro micropuncture technique using ultrasound guidance. A guidewire was then advanced under fluoroscopic guidance into the superior vena cava. An image documenting ultrasound guidance for vascular access was permanently saved. The length of the single-lumen 4 M[place]ese PICC was trimmed to 35 centimeters and advanced through a peel-away sheath. The PICC was position with tip of PICC confirm a spot radiograph the superior vena cava. The PICC was secured to the patient's skin. The PICC was flushed. A biopatch and sterile dressing was applied. IMPRESSION: Placement of a single-lumen 4 Maltese PICC trimmed to 35 centimeters via right basilic vein. The tip of the PICC is confirmed with spot radiograph and is in the superior vena cava.
[2017-12-16] MEDS ORDERED: Bisacodyl 5mg EC Tab PO ONE (17:00)
--- NOTE | 2017-12-16 20:10 | CP.PCM.PN ---
Subjective - Date & Time of Evaluation Date of Evaluation: 12/16/17 Time of Evaluation: 09:00 - Subjective Subjective: Patient without overt bleeding. Objective - Vital Signs/Intake and Output Vital Signs (last 24 hours): Temp Pulse Resp BP Pulse Ox 97.7 F 69 18 106/69 100 12/16/17 19:56 12/16/17 19:56 12/16/17 19:56 12/16/17 19:56 12/16/17 19:56 - Medications Medications: Current Medications Acetaminophen (Tylenol 325mg Tab) 650 mg PO Q6 PRN PRN Reason: Pain, Mild (1-3) Last Admin: 12/16/17 04:18 Dose: 650 mg Albuterol (Ventolin Hfa 90 Mcg/Actuation (8 G)) 1 puff INH Q6H [facility] Last Admin: 12/16/17 14:52 Dose: 1 inhaler Ascorbic Acid (Vitamin C 500 Mg Tab) 500 mg PO DAILY [facility] Last Admin: 12/16/17 11:53 Dose: 500 mg Atorvastatin Calcium (Lipitor) 20 mg PO DAILY [facility] Last Admin: 12/16/17 09:02 Dose: 20 mg Bismuth Subsalicylate (Pepto-Bismol) 524 mg PO Q6 PRN PRN Reason: every LBM ,maximum dose x4 dos Last Admin: 12/13/17 16:44 Dose: 524 mg Clopidogrel Bisulfate (Plavix) 75 mg PO DAILY [facility] Last Admin: 12/16/17 08:56 Dose: 75 mg Cyanocobalamin (Vitamin B12 1000 Mcg Tab) 1,000 mcg PO DAILY [facility] Last Admin: 12/16/17 08:57 Dose: 1,000 mcg Docusate Sodium (Colace) 100 mg PO BID [facility] Last Admin: 12/16/17 18:10 Dose: 100 mg Famotidine (Pepcid) 20 mg PO BID [facility] Last Admin: 12/16/17 18:10 Dose: 20 mg Ferrous Sulfate (Feosol) 325 mg PO DAILY [facility] Last Admin: 12/16/17 08:57 Dose: 325 mg Gabapentin (Neurontin) 300 mg PO TID [facility] Last Admin: 12/16/17 18:10 Dose: 300 mg Lactated Ringer's (Lactated Ringer's) 1,000 mls @ 50 mls/hr IV .Q20H [facility] Insulin Detemir (Levemir) 34 units SC HS [facility] Last Admin: 12/15/17 23:06 Dose: 34 units Insulin Human Lispro (Humalog) 15 units SC DAILY [facility] Last Admin: 12/16/17 08:55 Dose: 15 units Levothyroxine Sodium (Synthroid) 150 mcg PO DAILY@0630 [facility] Last Admin: 12/16/17 06:07 Dose: 150 mcg Lisinopril (Zestril) 20 mg PO DAILY [facility] Last Admin: 12/16/17 08:57 Dose: 20 mg Magnesium Citrate (Citrate Of Mag) 300 ml PO ONCE ONE Stop: 12/16/17 21:01 Magnesium Oxide (Mag-Ox) 400 mg PO DAILY [facility] Last Admin: 12/16/17 08:57 Dose: 400 mg Metformin HCl (Glucophage) 500 mg PO BIDWM [facility] Last Admin: 12/16/17 18:10 Dose: 500 mg Mirtazapine (Remeron) 30 mg PO DAILY [facility] Last Admin: 12/16/17 08:56 Dose: 30 mg Nitrofurantoin Macrocrystals (Macrobid) 100 mg PO Q12 [facility] PRN Reason: Protocol Stop: 12/17/17 09:01 Last Admin: 12/16/17 08:56 Dose: 100 mg Oxycodone/Acetaminophen (Percocet 5/325 Mg Tab) 1 tab PO Q6 PRN PRN Reason: Pain, severe (8-10) Stop: 12/19/17 09:10 Last Admin: 12/16/17 09:32 Dose: 1 tab Pantoprazole Sodium (Protonix Ec Tab) 40 mg PO DAILY [facility] Last Admin: 12/16/17 08:57 Dose: 40 mg - Labs Labs: 12/16/17 04:20 12/16/17 04:20 PT 13.2 Seconds (9.8-13.1) H 12/11/17 19:15 INR 1.2 (0.9-1.2) 12/11/17 19:15 APTT 30.3 Seconds (25.6-37.1) 12/11/17 19:15 - Head Exam Head Exam: ATRAUMATIC - Eye Exam Eye Exam: Normal appearance - ENT Exam ENT Exam: Normal Exam - Neck Exam Neck Exam: Normal Inspection - Respiratory Exam Respiratory Exam: Clear to Ausculation Bilateral - Cardiovascular Exam Cardiovascular Exam: REGULAR RHYTHM - GI/Abdominal Exam GI & Abdominal Exam: Soft, Normal Bowel Sounds Assessment and Plan (1) Anemia Assessment & Plan: Patient with unexplained anemia. Past h/o colon cancer. Transfuse to over 8. Upper and lower endoscopy tomorrow. Status: Acute
[2017-12-16] MEDS: Insulin Detemir 100 Units/ml Inj SC SCH (21:20)
[2017-12-16] MEDS ORDERED: Lactated Ringer's 1,000 ML IV SCH (23:00)
[2017-12-17] MEDS: Albuterol HFA 90 mcg/actuation (8 g) INH SCH ×5 (00:05→17:17)
[2017-12-17 05:38] LABS: HEMOGLOBIN 8.8 g/dL (12.0-16.0); MEAN CELL VOLUME 83.8 fl (81.0-99.0); MEAN CORPUSCULAR HEMOGLOBIN 27.4 pg (27.0-31.0); MEAN CORPUSCULAR HGB CONC 32.7 g/dL (33.0-37.0); RBC 3.2 Mil/uL (3.80-5.20); RED CELL DISTRIBUTION WIDTH 21.5 % (11.5-14.5); WHITE BLOOD COUNT 3.6 K/uL (4.8-10.8)
--- NOTE | 2017-12-17 06:19 | CP.PCM.PN ---
Subjective - Date & Time of Evaluation Date of Evaluation: 12/16/17 Time of Evaluation: 22:00 - Subjective Subjective: s/p transfusion of 2 units CP yesterday am , relieved with ntg plan for EGD tomorrow Objective - Vital Signs/Intake and Output Vital Signs (last 24 hours): Temp Pulse Resp BP Pulse Ox 97.8 F 68 16 113/66 97 12/17/17 05:02 12/17/17 05:02 12/17/17 05:02 12/17/17 05:02 12/17/17 05:02 - Medications Medications: Current Medications Acetaminophen (Tylenol 325mg Tab) 650 mg PO Q6 PRN PRN Reason: Pain, Mild (1-3) Last Admin: 12/16/17 04:18 Dose: 650 mg Albuterol (Ventolin Hfa 90 Mcg/Actuation (8 G)) 1 puff INH Q6H [facility] Last Admin: 12/17/17 00:06 Dose: 1 inhaler Ascorbic Acid (Vitamin C 500 Mg Tab) 500 mg PO DAILY [facility] Last Admin: 12/16/17 11:53 Dose: 500 mg Atorvastatin Calcium (Lipitor) 20 mg PO DAILY [facility] Last Admin: 12/16/17 09:02 Dose: 20 mg Bismuth Subsalicylate (Pepto-Bismol) 524 mg PO Q6 PRN PRN Reason: every LBM ,maximum dose x4 dos Last Admin: 12/13/17 16:44 Dose: 524 mg Clopidogrel Bisulfate (Plavix) 75 mg PO DAILY [facility] Last Admin: 12/16/17 08:56 Dose: 75 mg Cyanocobalamin (Vitamin B12 1000 Mcg Tab) 1,000 mcg PO DAILY [facility] Last Admin: 12/16/17 08:57 Dose: 1,000 mcg Docusate Sodium (Colace) 100 mg PO BID [facility] Last Admin: 12/16/17 18:10 Dose: 100 mg Famotidine (Pepcid) 20 mg PO BID [facility] Last Admin: 12/16/17 18:10 Dose: 20 mg Ferrous Sulfate (Feosol) 325 mg PO DAILY [facility] Last Admin: 12/16/17 08:57 Dose: 325 mg Gabapentin (Neurontin) 300 mg PO TID [facility] Last Admin: 12/16/17 18:10 Dose: 300 mg Lactated Ringer's (Lactated Ringer's) 1,000 mls @ 50 mls/hr IV .Q20H [facility] Last Admin: 12/16/17 22:14 Dose: 50 mls/hr Insulin Detemir (Levemir) 34 units SC HS [facility] Last Admin: 12/16/17 21:20 Dose: 34 units Insulin Human Lispro (Humalog) 15 units SC DAILY [facility] Last Admin: 12/16/17 08:55 Dose: 15 units Levothyroxine Sodium (Synthroid) 150 mcg PO DAILY@0630 [facility] Last Admin: 12/16/17 06:07 Dose: 150 mcg Lisinopril (Zestril) 20 mg PO DAILY [facility] Last Admin: 12/16/17 08:57 Dose: 20 mg Magnesium Oxide (Mag-Ox) 400 mg PO DAILY [facility] Last Admin: 12/16/17 08:57 Dose: 400 mg Metformin HCl (Glucophage) 500 mg PO BIDWM [facility] Last Admin: 12/16/17 18:10 Dose: 500 mg Mirtazapine (Remeron) 30 mg PO DAILY [facility] Last Admin: 12/16/17 08:56 Dose: 30 mg Nitrofurantoin Macrocrystals (Macrobid) 100 mg PO Q12 [facility] PRN Reason: Protocol Stop: 12/17/17 09:01 Last Admin: 12/16/17 21:20 Dose: 100 mg Oxycodone/Acetaminophen (Percocet 5/325 Mg Tab) 1 tab PO Q6 PRN PRN Reason: Pain, severe (8-10) Stop: 12/19/17 09:10 Last Admin: 12/16/17 09:32 Dose: 1 tab Pantoprazole Sodium (Protonix Ec Tab) 40 mg PO DAILY [facility] Last Admin: 12/16/17 08:57 Dose: 40 mg - Labs Labs: 12/17/17 05:00 12/16/17 04:20 PT 13.2 Seconds (9.8-13.1) H 12/11/17 19:15 INR 1.2 (0.9-1.2) 12/11/17 19:15 APTT 30.3 Seconds (25.6-37.1) 12/11/17 19:15 - Constitutional Appears: Well - Head Exam Head Exam: ATRAUMATIC, NORMAL INSPECTION, NORMOCEPHALIC - Eye Exam Eye Exam: EOMI, Normal appearance, PERRL Pupil Exam: NORMAL ACCOMODATION, PERRL - ENT Exam ENT Exam: Mucous Membranes Moist, Normal Exam - Neck Exam Neck Exam: Full ROM, Normal Inspection. absent: Lymphadenopathy - Respiratory Exam Respiratory Exam: Clear to Ausculation Bilateral, NORMAL BREATHING PATTERN - Cardiovascular Exam Cardiovascular Exam: REGULAR RHYTHM, +S1, +S2. absent: Murmur - GI/Abdominal Exam GI & Abdominal Exam: Soft, Normal Bowel Sounds. absent: Tenderness - Extremities Exam Extremities Exam: Full ROM, Normal Capillary Refill, Normal Inspection. absent : Joint Swelling, Pedal Edema - Back Exam Back Exam: NORMAL INSPECTION - Neurological Exam Neurological Exam: Alert, Awake, CN II-XII Intact, Normal Gait, Oriented x3 - Psychiatric Exam Psychiatric exam: Normal Affect, Normal Mood - Skin Skin Exam: Dry, Intact, Normal Color, Warm Assessment and Plan (1) Preop cardiovascular exam Assessment & Plan: as per ACC/AHA guidelines she can proceed with plan EGD/colonscopy with intermediate risk for perioperative cardiac event add bb Status: Acute (2) Acute chest pain Assessment & Plan: hold plavix add bb and nitrates low dose Status: Acute (3) Anemia Status: Acute
[2017-12-17 06:23] LABS: ALB/GLOB RATIO 0.9 (1.0-2.1); ALBUMIN 3.3 g/dL (3.5-5.0); ALT/SGPT 28 U/L (9-52); AST/SGOT 43 U/L (14-36); BLOOD UREA NITROGEN 12 mg/dl (7-17); CALCIUM 8.7 mg/dL (8.4-10.2); GFR AFRICAN-AMERICAN > 60; GFR NON-AFRICAN AMERICAN > 60
[2017-12-17] MEDS ORDERED: Lactated Ringer's 500 ML IV ONE (07:37)
[2017-12-17] MEDS ORDERED: Propofol 10 mg/ml Inj (20 ML) ONE (08:22)
--- NOTE | 2017-12-17 08:58 | PN ---
DATE: 12/16/2017 SUBJECTIVE: The patient seen and examined. Interim events noted. Consults noted and appreciated. Bond Broker, Rheumatology, Hematology, Oncology interventions noted and appreciated. The patient remains in progressive care unit on telemetry monitoring. The patient had very poor venous access and did not get blood transfusion yesterday. Attempted to start IV myself but was not successful. The patient returned after first attempt. The patient feels okay. No chest pain. No shortness of breath. No dizziness. PHYSICAL EXAMINATION: GENERAL: The patient is in no acute distress. VITAL SIGNS: Stable. HEART: S1 and S2, normal and regular. LUNGS: Good bilateral air exchange. ABDOMEN: Soft and nontender. EXTREMITIES: . PROJECT ACCOUNTANT: Exam is essentially unchanged. DIAGNOSTIC DATA: Available diagnostic data reviewed. Hemoglobin is . ASSESSMENT AND PLAN: Plan as ordered. Case and plan discussed with the patient. The patient will have ____ today and then blood transfusions. Norm Hull MD
[2017-12-17] MEDS: Magnesium Oxide 400 mg Tab UD PO SCH (09:51)
[2017-12-17] MEDS: Levothyroxine 150 MCG TAB PO SCH (09:54)
[2017-12-17] MEDS: Insulin Lispro (humaLOG) 100 Units/ml Inj SC SCH (09:57)
--- NOTE | 2017-12-17 13:07 | PN ---
DATE: 12/17/2017 SUBJECTIVE: The patient seen and examined. Interim events noted. Consults noted and appreciated. Gastroenterology and Hematology/Oncology followup and intervention noted and appreciated. The patient remains in progressive care unit, on telemetry monitoring status post PICC line and blood transition. The patient feels okay. Denies any specific complaint. No chest pain. No shortness of breath. PHYSICAL EXAMINATION: GENERAL: The patient is in no acute distress. VITAL SIGNS: Stable. HEART: S1 and S2, normal and regular. LUNGS: Good bilateral air exchange. ABDOMEN: Soft, nontender. EXTREMITIES: No edema. No calf swelling. No tenderness. No acute ischemia. CLINIC BUSINESS MANAGER: Exam is essentially unchanged. DIAGNOSTIC DATA: Available diagnostic data reviewed. Hemoglobin is 8.2. Telemetry monitoring does not reveal significant arrhythmias. ASSESSMENT AND PLAN: Overall, the patient is clinically stable. The patient is for endoscopy today. Plan as ordered. Norm Hull MD
--- NOTE | 2017-12-17 13:32 | CP.PCM.PN ---
Subjective - Date & Time of Evaluation Date of Evaluation: 12/17/17 Time of Evaluation: 13:31 - Subjective Subjective: Pt is afebrile . She received 2 units of blood and the hgb is 8.8 gms. She was going for a endoscopy and colonoscopy today.Will follow. Objective - Vital Signs/Intake and Output Vital Signs (last 24 hours): Temp Pulse Resp BP Pulse Ox 98.5 F 81 20 122/76 100 12/17/17 13:00 12/17/17 13:00 12/17/17 13:00 12/17/17 13:00 12/17/17 13:00 Intake and Output: 12/17/17 12/17/17 06:59 18:59 Intake Total 150 Balance 150 - Medications Medications: Current Medications Acetaminophen (Tylenol 325mg Tab) 650 mg PO Q6 PRN PRN Reason: Pain, Mild (1-3) Last Admin: 12/16/17 04:18 Dose: 650 mg Albuterol (Ventolin Hfa 90 Mcg/Actuation (8 G)) 1 puff INH Q6H [facility] Last Admin: 12/17/17 06:22 Dose: 1 inhaler Ascorbic Acid (Vitamin C 500 Mg Tab) 500 mg PO DAILY [facility] Last Admin: 12/17/17 09:52 Dose: 500 mg Atorvastatin Calcium (Lipitor) 20 mg PO DAILY [facility] Last Admin: 12/17/17 09:51 Dose: 20 mg Bismuth Subsalicylate (Pepto-Bismol) 524 mg PO Q6 PRN PRN Reason: every LBM ,maximum dose x4 dos Last Admin: 12/13/17 16:44 Dose: 524 mg Clopidogrel Bisulfate (Plavix) 75 mg PO DAILY [facility] Last Admin: 12/17/17 09:52 Dose: 75 mg Cyanocobalamin (Vitamin B12 1000 Mcg Tab) 1,000 mcg PO DAILY [facility] Last Admin: 12/17/17 09:52 Dose: 1,000 mcg Docusate Sodium (Colace) 100 mg PO BID [facility] Last Admin: 12/17/17 09:52 Dose: 100 mg Ferrous Sulfate (Feosol) 325 mg PO DAILY [facility] Last Admin: 12/17/17 09:51 Dose: 325 mg Gabapentin (Neurontin) 300 mg PO TID [facility] Last Admin: 12/17/17 09:53 Dose: 300 mg Lactated Ringer's (Lactated Ringer's) 1,000 mls @ 50 mls/hr IV .Q20H [facility] Last Admin: 12/16/17 22:14 Dose: 50 mls/hr Insulin Detemir (Levemir) 34 units SC HS [facility] Last Admin: 12/16/17 21:20 Dose: 34 units Insulin Human Lispro (Humalog) 15 units SC DAILY [facility] Last Admin: 12/17/17 09:57 Dose: 15 units Levothyroxine Sodium (Synthroid) 150 mcg PO DAILY@0630 [facility] Last Admin: 12/17/17 09:54 Dose: 150 mcg Lisinopril (Zestril) 20 mg PO DAILY [facility] Last Admin: 12/17/17 09:54 Dose: 20 mg Magnesium Oxide (Mag-Ox) 400 mg PO DAILY [facility] Last Admin: 12/17/17 09:51 Dose: 400 mg Metformin HCl (Glucophage) 500 mg PO BIDWM [facility] Last Admin: 12/17/17 09:50 Dose: 500 mg Mirtazapine (Remeron) 30 mg PO DAILY [facility] Last Admin: 12/17/17 09:51 Dose: 30 mg Oxycodone/Acetaminophen (Percocet 5/325 Mg Tab) 1 tab PO Q6 PRN PRN Reason: Pain, severe (8-10) Stop: 12/19/17 09:10 Last Admin: 12/16/17 09:32 Dose: 1 tab Pantoprazole Sodium (Protonix Ec Tab) 40 mg PO BID [facility] - Labs Labs: 12/17/17 05:00 12/17/17 05:00 PT 13.2 Seconds (9.8-13.1) H 12/11/17 19:15 INR 1.2 (0.9-1.2) 12/11/17 19:15 APTT 30.3 Seconds (25.6-37.1) 12/11/17 19:15
[2017-12-17] MEDS: Pantoprazole 40 mg EC Tab PO SCH (17:09)
[2017-12-17] MEDS: Insulin Detemir 100 Units/ml Inj SC SCH (21:42)
[2017-12-18] MEDS: Albuterol HFA 90 mcg/actuation (8 g) INH SCH ×5 (00:43→17:48)
[2017-12-18] MEDS: Levothyroxine 150 MCG TAB PO SCH (05:52)
--- NOTE | 2017-12-18 07:28 | CP.PCM.PN ---
<Shima Juarez - Last Filed: 12/18/17 18:26> Subjective - Date & Time of Evaluation Date of Evaluation: 12/18/17 Time of Evaluation: 07:30 - Subjective Subjective: Patient seen and examined at bedside with Dr. Hull. Reports weakness has improved. Denies chest pain, palpitations, headache or SOB. Discussed with patient results of Upper Endoscopy: reflux esophagitis and chronic gastritis, and colonoscopy: nonbleeding rectal varices and nonbleeding internal hemorrhoids , no active bleeding site. Objective - Vital Signs/Intake and Output Vital Signs (last 24 hours): Temp Pulse Resp BP Pulse Ox 98.1 F 80 16 100/63 98 12/18/17 04:54 12/18/17 04:54 12/18/17 04:54 12/18/17 04:54 12/18/17 04:54 - Medications Medications: Current Medications Acetaminophen (Tylenol 325mg Tab) 650 mg PO Q6 PRN PRN Reason: Pain, Mild (1-3) Last Admin: 12/16/17 04:18 Dose: 650 mg Albuterol (Ventolin Hfa 90 Mcg/Actuation (8 G)) 1 puff INH Q6H [facility] Last Admin: 12/18/17 05:45 Dose: 1 puff Ascorbic Acid (Vitamin C 500 Mg Tab) 500 mg PO DAILY [facility] Last Admin: 12/17/17 09:52 Dose: 500 mg Atorvastatin Calcium (Lipitor) 20 mg PO DAILY [facility] Last Admin: 12/17/17 09:51 Dose: 20 mg Bismuth Subsalicylate (Pepto-Bismol) 524 mg PO Q6 PRN PRN Reason: every LBM ,maximum dose x4 dos Last Admin: 12/13/17 16:44 Dose: 524 mg Clopidogrel Bisulfate (Plavix) 75 mg PO DAILY [facility] Last Admin: 12/17/17 09:52 Dose: 75 mg Cyanocobalamin (Vitamin B12 1000 Mcg Tab) 1,000 mcg PO DAILY [facility] Last Admin: 12/17/17 09:52 Dose: 1,000 mcg Docusate Sodium (Colace) 100 mg PO BID [facility] Last Admin: 12/17/17 17:08 Dose: 100 mg Ferrous Sulfate (Feosol) 325 mg PO DAILY [facility] Last Admin: 12/17/17 09:51 Dose: 325 mg Gabapentin (Neurontin) 300 mg PO TID [facility] Last Admin: 12/17/17 17:08 Dose: 300 mg Lactated Ringer's (Lactated Ringer's) 1,000 mls @ 50 mls/hr IV .Q20H [facility] Last Admin: 12/16/17 22:14 Dose: 50 mls/hr Insulin Detemir (Levemir) 34 units SC HS [facility] Last Admin: 12/17/17 21:42 Dose: 34 units Insulin Human Lispro (Humalog) 15 units SC DAILY [facility] Last Admin: 12/17/17 09:57 Dose: 15 units Levothyroxine Sodium (Synthroid) 150 mcg PO DAILY@0630 [facility] Last Admin: 12/18/17 05:52 Dose: 150 mcg Lisinopril (Zestril) 20 mg PO DAILY [facility] Last Admin: 12/17/17 09:54 Dose: 20 mg Magnesium Oxide (Mag-Ox) 400 mg PO DAILY [facility] Last Admin: 12/17/17 09:51 Dose: 400 mg Metformin [facility] (Glucophage) [facility] Mirtazapine (Remeron) 30 mg PO DAILY [facility] Last Admin: 12/17/17 09:51 Dose: 30 mg Oxycodone/Acetaminophen (Percocet 5/325 Mg Tab) 1 tab PO Q6 PRN PRN Reason: Pain, severe (8-10) Stop: 12/19/17 09:10 Last Admin: 12/16/17 09:32 Dose: 1 tab Pantoprazole Sodium (Protonix Ec Tab) 40 mg PO BID [facility] Last Admin: 12/17/17 17:09 Dose: 40 mg - Labs Labs: 12/17/17 05:00 12/17/17 05:00 PT 13.2 Seconds (9.8-13.1) H 12/11/17 19:15 INR 1.2 (0.9-1.2) 12/11/17 19:15 APTT 30.3 Seconds (25.6-37.1) 12/11/17 19:15 - Constitutional Appears: No Acute Distress - Head Exam Head Exam: NORMAL INSPECTION - Eye Exam Eye Exam: EOMI - ENT Exam ENT Exam: Mucous Membranes Moist - Respiratory Exam Respiratory Exam: NORMAL BREATHING PATTERN - Cardiovascular Exam Cardiovascular Exam: REGULAR RHYTHM - GI/Abdominal Exam GI & Abdominal Exam: Normal Bowel Sounds - Extremities Exam Extremities Exam: Full ROM. absent: Pedal Edema - Neurological Exam Neurological Exam: Alert, Awake - Psychiatric Exam Psychiatric exam: Normal Affect, Normal Mood - Skin Skin Exam: Dry, Warm Assessment and Plan - Assessment and Plan (Free Text) Assessment: 62 yr old F admitted for severe symptomatic anemia with normal upper endoscopy and colonoscopy, colon nodule biopsied-negative for malignancy. ACtive GI bleed ruled out, normocytic anemia of unknown etiology remains. Patient to have bone marrow biopsy tomorrow. Prior ordered stool for occult blood test cancelled as patient had upper endoscopy and colonoscopy. Plan: -cardiac monitoring -cardiology consulty appreciated -f/u CBC -heme/onc consult appreciated: patient for bone marrow biopsy tomorrow -macrobid 100mg PO Q12 -GI on consult <Norm Hull - Last Filed: 12/20/17 12:48> Objective - Vital Signs/Intake and Output Vital Signs (last 24 hours): Temp Pulse Resp BP Pulse Ox 98 F 90 18 102/60 99 12/19/17 12:16 12/19/17 12:16 12/19/17 12:16 12/19/17 12:16 12/20/17 10:33 - Labs Labs: 12/18/17 11:12 12/17/17 05:00 PT 13.2 Seconds (9.8-13.1) H 12/11/17 19:15 INR 1.2 (0.9-1.2) 12/11/17 19:15 APTT 30.3 Seconds (25.6-37.1) 12/11/17 19:15 Assessment and Plan - Assessment and Plan (Free Text) Assessment: Patient was personally seen and examined by me in rounds with residents. Available labs and diagnostic data reviewed. Case, Patient's condition and management plan discussed with residents in rounds. Agree with resident's progress note. Plan: As ordered.
[2017-12-18] MEDS: Magnesium Oxide 400 mg Tab UD PO SCH (08:16)
[2017-12-18] MEDS: Pantoprazole 40 mg EC Tab PO SCH ×2 (08:17→17:47)
[2017-12-18] MEDS: Insulin Lispro (humaLOG) 100 Units/ml Inj SC SCH (08:20)
--- NOTE | 2017-12-18 08:55 | CP.PCM.PN ---
Subjective - Date & Time of Evaluation Date of Evaluation: 12/18/17 Time of Evaluation: 08:49 - Subjective Subjective: Pt is feeling fine today. Her hgb has been sycxe1t after the transfusion/The endoscopy and colonoscopy observetion noted. Other than some erosions in the gastric mucosa and polyp in the rectal area the findings were fine. If there is any further drop in the hgb pt will need a bone marrow At this time she an be discharged if ok with attending.. Will ck the results of biopsies done during te endoscopy and colonoscopy Objective - Vital Signs/Intake and Output Vital Signs (last 24 hours): Temp Pulse Resp BP Pulse Ox 99.4 F 67 18 122/72 99 12/18/17 08:00 12/18/17 08:18 12/18/17 08:00 12/18/17 08:18 12/18/17 08:00 - Medications Medications: Current Medications Acetaminophen (Tylenol 325mg Tab) 650 mg PO Q6 PRN PRN Reason: Pain, Mild (1-3) Last Admin: 12/16/17 04:18 Dose: 650 mg Albuterol (Ventolin Hfa 90 Mcg/Actuation (8 G)) 1 puff INH Q6H [facility] Last Admin: 12/18/17 05:45 Dose: 1 puff Ascorbic Acid (Vitamin C 500 Mg Tab) 500 mg PO DAILY [facility] Last Admin: 12/18/17 08:17 Dose: 500 mg Atorvastatin Calcium (Lipitor) 20 mg PO DAILY [facility] Last Admin: 12/18/17 08:16 Dose: 20 mg Bismuth Subsalicylate (Pepto-Bismol) 524 mg PO Q6 PRN PRN Reason: every LBM ,maximum dose x4 dos Last Admin: 12/13/17 16:44 Dose: 524 mg Clopidogrel Bisulfate (Plavix) 75 mg PO DAILY [facility] Last Admin: 12/18/17 08:17 Dose: 75 mg Cyanocobalamin (Vitamin B12 1000 Mcg Tab) 1,000 mcg PO DAILY [facility] Last Admin: 12/18/17 08:17 Dose: 1,000 mcg Docusate Sodium (Colace) 100 mg PO BID [facility] Last Admin: 12/18/17 08:16 Dose: 100 mg Ferrous Sulfate (Feosol) 325 mg PO DAILY [facility] Last Admin: 12/18/17 08:16 Dose: 325 mg Gabapentin (Neurontin) 300 mg PO TID [facility] Last Admin: 12/18/17 08:17 Dose: 300 mg Lactated Ringer's (Lactated Ringer's) 1,000 mls @ 50 mls/hr IV .Q20H [facility] Last Admin: 12/16/17 22:14 Dose: 50 mls/hr Insulin Detemir (Levemir) 34 units SC HS [facility] Last Admin: 12/17/17 21:42 Dose: 34 units Insulin Human Lispro (Humalog) 15 units SC DAILY [facility] Last Admin: 12/18/17 08:20 Dose: 15 units Levothyroxine Sodium (Synthroid) 150 mcg PO DAILY@0630 [facility] Last Admin: 12/18/17 05:52 Dose: 150 mcg Lisinopril (Zestril) 20 mg PO DAILY [facility] Last Admin: 12/18/17 08:18 Dose: 20 mg Magnesium Oxide (Mag-Ox) 400 mg PO DAILY [facility] Last Admin: 12/18/17 08:16 Dose: 400 mg Metformin HCl (Glucophage) 1,000 mg PO BIDWM [facility] Last Admin: 12/18/17 08:19 Dose: 1,000 mg Mirtazapine (Remeron) 30 mg PO DAILY [facility] Last Admin: 12/18/17 08:19 Dose: 30 mg Oxycodone/Acetaminophen (Percocet 5/325 Mg Tab) 1 tab PO Q6 PRN PRN Reason: Pain, severe (8-10) Stop: 12/19/17 09:10 Last Admin: 12/16/17 09:32 Dose: 1 tab Pantoprazole Sodium (Protonix Ec Tab) 40 mg PO BID [facility] Last Admin: 12/18/17 08:17 Dose: 40 mg - Labs Labs: 12/17/17 05:00 12/17/17 05:00 PT 13.2 Seconds (9.8-13.1) H 12/11/17 19:15 INR 1.2 (0.9-1.2) 12/11/17 19:15 APTT 30.3 Seconds (25.6-37.1) 12/11/17 19:15
--- NOTE | 2017-12-18 10:38 | CP.PCM.PN ---
Subjective - Date & Time of Evaluation Date of Evaluation: 12/18/17 Time of Evaluation: 10:36 - Subjective Subjective: Patient states that epigastric burning has improved. Objective - Vital Signs/Intake and Output Vital Signs (last 24 hours): Temp Pulse Resp BP Pulse Ox 99.4 F 67 18 122/72 99 12/18/17 08:00 12/18/17 08:18 12/18/17 08:00 12/18/17 08:18 12/18/17 08:00 - Medications Medications: Current Medications Acetaminophen (Tylenol 325mg Tab) 650 mg PO Q6 PRN PRN Reason: Pain, Mild (1-3) Last Admin: 12/16/17 04:18 Dose: 650 mg Albuterol (Ventolin Hfa 90 Mcg/Actuation (8 G)) 1 puff INH Q6H [facility] Last Admin: 12/18/17 05:45 Dose: 1 puff Ascorbic Acid (Vitamin C 500 Mg Tab) 500 mg PO DAILY [facility] Last Admin: 12/18/17 08:17 Dose: 500 mg Atorvastatin Calcium (Lipitor) 20 mg PO DAILY [facility] Last Admin: 12/18/17 08:16 Dose: 20 mg Bismuth Subsalicylate (Pepto-Bismol) 524 mg PO Q6 PRN PRN Reason: every LBM ,maximum dose x4 dos Last Admin: 12/13/17 16:44 Dose: 524 mg Clopidogrel Bisulfate (Plavix) 75 mg PO DAILY [facility] Last Admin: 12/18/17 08:17 Dose: 75 mg Cyanocobalamin (Vitamin B12 1000 Mcg Tab) 1,000 mcg PO DAILY [facility] Last Admin: 12/18/17 08:17 Dose: 1,000 mcg Docusate Sodium (Colace) 100 mg PO BID [facility] Last Admin: 12/18/17 08:16 Dose: 100 mg Ferrous Sulfate (Feosol) 325 mg PO DAILY [facility] Last Admin: 12/18/17 08:16 Dose: 325 mg Gabapentin (Neurontin) 300 mg PO TID [facility] Last Admin: 12/18/17 08:17 Dose: 300 mg Lactated Ringer's (Lactated Ringer's) 1,000 mls @ 50 mls/hr IV .Q20H [facility] Last Admin: 12/16/17 22:14 Dose: 50 mls/hr Insulin Detemir (Levemir) 34 units SC HS [facility] Last Admin: 12/17/17 21:42 Dose: 34 units Insulin Human Lispro (Humalog) 15 units SC DAILY [facility] Last Admin: 12/18/17 08:20 Dose: 15 units Levothyroxine Sodium (Synthroid) 150 mcg PO DAILY@0630 [facility] Last Admin: 12/18/17 05:52 Dose: 150 mcg Lisinopril (Zestril) 20 mg PO DAILY [facility] Last Admin: 12/18/17 08:18 Dose: 20 mg Magnesium Oxide (Mag-Ox) 400 mg PO DAILY [facility] Last Admin: 12/18/17 08:16 Dose: 400 mg Metformin [facility] (Glucophage) [facility] Last Admin: 12/18/17 08:19 Dose: 1,000 mg Mirtazapine (Remeron) 30 mg PO DAILY [facility] Last Admin: 12/18/17 08:19 Dose: 30 mg Oxycodone/Acetaminophen (Percocet 5/325 Mg Tab) 1 tab PO Q6 PRN PRN Reason: Pain, severe (8-10) Stop: 12/19/17 09:10 Last Admin: 12/16/17 09:32 Dose: 1 tab Pantoprazole Sodium (Protonix Ec Tab) 40 mg PO BID [facility] Last Admin: 12/18/17 08:17 Dose: 40 mg - Labs Labs: 12/17/17 05:00 12/17/17 05:00 PT 13.2 Seconds (9.8-13.1) H 12/11/17 19:15 INR 1.2 (0.9-1.2) 12/11/17 19:15 APTT 30.3 Seconds (25.6-37.1) 12/11/17 19:15 - Head Exam Head Exam: ATRAUMATIC - Eye Exam Eye Exam: Normal appearance - Neck Exam Neck Exam: Full ROM - Respiratory Exam Respiratory Exam: Clear to Ausculation Bilateral - GI/Abdominal Exam GI & Abdominal Exam: Soft. absent: Tenderness Assessment and Plan (1) Anemia Assessment & Plan: Upper endoscopy yesterday showed esophagitis/gastritis. Hgb remains stable and patient feels better. From GI perspective may be discharged and see me in the office next week for management and biopsy results Status: Acute
[2017-12-18 11:28] LABS: MEAN CORPUSCULAR HEMOGLOBIN 27.1 pg (27.0-31.0); MEAN CORPUSCULAR HGB CONC 31.9 g/dL (33.0-37.0); RBC 2.95 Mil/uL (3.80-5.20); RED CELL DISTRIBUTION WIDTH 22.1 % (11.5-14.5); WHITE BLOOD COUNT 3.6 K/uL (4.8-10.8)
--- NOTE | 2017-12-18 12:09 | CP.PCM.PCO ---
Assessment/Plan - Assessment and Plan (Free Text) Assessment: Patient seen and examined this morning Hgb 8.0 from 8.8 12/[address] Smooth Ansari, patient for bone marrow in am.
[2017-12-18] MEDS: Bismuth Subsalicylate 262 mg/15 ml Sus (240 ml) PO PRN (14:14)
[2017-12-18] MEDS: Insulin Detemir 100 Units/ml Inj SC SCH (21:06)
[2017-12-19 00:09] VITALS: RESP 18
[2017-12-19] MEDS: Albuterol HFA 90 mcg/actuation (8 g) INH SCH ×2 (06:02→13:07)
[2017-12-19] MEDS: Levothyroxine 150 MCG TAB PO SCH (06:03)
[2017-12-19] MEDS: Pantoprazole 40 mg EC Tab PO SCH (09:16)
[2017-12-19] MEDS: Magnesium Oxide 400 mg Tab UD PO SCH (09:16)
[2017-12-19] MEDS: Insulin Lispro (humaLOG) 100 Units/ml Inj SC SCH (09:19)
--- NOTE | 2017-12-19 10:05 | CP.PCM.PN ---
Subjective - Date & Time of Evaluation Date of Evaluation: 12/19/17 Time of Evaluation: 09:59 - Subjective Subjective: I was going to do a bone marrow on the patient, but she claims that her cable assembler Dr Jay did a marrow not so long ago and told her that everything was normal except low iron., She did not want another marrow done. She is on po iron and will be discharged with orders to see her cable assembler soon after her discharge. Objective - Vital Signs/Intake and Output Vital Signs (last 24 hours): Temp Pulse Resp BP Pulse Ox 97.9 F 88 18 109/66 99 12/19/17 08:31 12/19/17 09:17 12/19/17 08:31 12/19/17 09:17 12/19/17 08:31 - Medications Medications: Current Medications Acetaminophen (Tylenol 325mg Tab) 650 mg PO Q6 PRN PRN Reason: Pain, Mild (1-3) Last Admin: 12/16/17 04:18 Dose: 650 mg Albuterol (Ventolin Hfa 90 Mcg/Actuation (8 G)) 1 puff INH Q6H [facility] Last Admin: 12/19/17 06:02 Dose: 1 puff Ascorbic Acid (Vitamin C 500 Mg Tab) 500 mg PO DAILY [facility] Last Admin: 12/19/17 09:17 Dose: 500 mg Atorvastatin Calcium (Lipitor) 20 mg PO DAILY [facility] Last Admin: 12/19/17 09:18 Dose: 20 mg Bismuth Subsalicylate (Pepto-Bismol) 524 mg PO Q6 PRN PRN Reason: every LBM ,maximum dose x4 dos Last Admin: 12/18/17 14:14 Dose: 524 mg Clopidogrel Bisulfate (Plavix) 75 mg PO DAILY [facility] Last Admin: 12/19/17 09:16 Dose: 75 mg Cyanocobalamin (Vitamin B12 1000 Mcg Tab) 1,000 mcg PO DAILY [facility] Last Admin: 12/19/17 09:18 Dose: 1,000 mcg Docusate Sodium (Colace) 100 mg PO BID [facility] Last Admin: 12/19/17 09:15 Dose: Not Given Ferrous Sulfate (Feosol) 325 mg PO DAILY [facility] Last Admin: 12/19/17 09:16 Dose: 325 mg Gabapentin (Neurontin) 300 mg PO TID [facility] Last Admin: 12/19/17 09:17 Dose: 300 mg Lactated Ringer's (Lactated Ringer's) 1,000 mls @ 50 mls/hr IV .Q20H [facility] Last Admin: 12/16/17 22:14 Dose: 50 mls/hr Insulin Detemir (Levemir) 34 units SC HS [facility] Last Admin: 12/18/17 21:06 Dose: 34 units Insulin Human Lispro (Humalog) 15 units SC DAILY [facility] Last Admin: 12/19/17 09:19 Dose: 15 units Levothyroxine Sodium (Synthroid) 150 mcg PO DAILY@0630 [facility] Last Admin: 12/19/17 06:03 Dose: 150 mcg Lisinopril (Zestril) 20 mg PO DAILY [facility] Last Admin: 12/19/17 09:17 Dose: 20 mg Magnesium Oxide (Mag-Ox) 400 mg PO DAILY [facility] Last Admin: 12/19/17 09:16 Dose: 400 mg Metformin HCl (Glucophage) 1,000 mg PO BIDWM [facility] Last Admin: 12/19/17 09:17 Dose: 1,000 mg Mirtazapine (Remeron) 30 mg PO DAILY [facility] Last Admin: 12/19/17 09:18 Dose: 30 mg Pantoprazole Sodium (Protonix Ec Tab) 40 mg PO BID [facility] Last Admin: 12/19/17 09:16 Dose: 40 mg - Labs Labs: 12/18/17 11:12 12/17/17 05:00 PT 13.2 Seconds (9.8-13.1) H 12/11/17 19:15 INR 1.2 (0.9-1.2) 12/11/17 19:15 APTT 30.3 Seconds (25.6-37.1) 12/11/17 19:15
[2017-12-19 12:17] VITALS: BP 102/60; PULSE 90; TEMP 98
--- NOTE | 2017-12-19 12:54 | PN ---
DATE: 12/19/2017 SUBJECTIVE: The patient is seen and examined. Interim events noted. Consults noted and appreciated. Rheumatology, Oncology, and Gastroenterology followup and intervention noted and appreciated. The patient remains in progressive care unit, on telemetry monitoring. The patient feels okay. Denies any chest pain or shortness of breath. PHYSICAL EXAMINATION: GENERAL: The patient is in no acute distress. VITAL SIGNS: Stable. HEART: S1, S2, normal and regular. LUNGS: Good bilateral air exchange. ABDOMEN: Soft and nontender. EXTREMITIES: No edema. No calf swelling. No tenderness. No acute ischemia. 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 DIAGNOSTIC DATA: Available diagnostic data reviewed. Hemoglobin . The patient needs bone marrow biopsy today. PLAN: As ordered. Case and plan discussed with the patient. Norm Hull MD MTDD
[2017-12-20 10:33] VITALS: O2SAT 99
== END 2017-12-19 14:52 | disposition home health service (06) | DRG 395 ==
LOC: H.ER 18:20 → H.ERHOLD 23:31 → H.TEL 12-12 02:26
PROVIDERS: ADMIT Internal Medicine; ATTEND Internal Medicine
PROC: 30233N1 Transfusion of Nonautologous Red Blood Cells into Peripheral Vein, Percutaneous Approach (ICD-10-PCS; 2017-12-12)
PROC: 02HV33Z Insertion of Infusion Device into Superior Vena Cava, Percutaneous Approach (ICD-10-PCS; 2017-12-15)
PROC: B518YZA Fluoroscopy of Superior Vena Cava using Other Contrast, Guidance (ICD-10-PCS; 2017-12-15)
PROC: 3E04329 Introduction of Other Anti-infective into Central Vein, Percutaneous Approach (ICD-10-PCS; 2017-12-15)
PROC: 0DBB8ZX Excision of Ileum, Via Natural or Artificial Opening Endoscopic, Diagnostic (ICD-10-PCS; 2017-12-17)
PROC: 0DB78ZX Excision of Stomach, Pylorus, Via Natural or Artificial Opening Endoscopic, Diagnostic (ICD-10-PCS; principal; 2017-12-17 08:00)
PROC: 0DB58ZX Excision of Esophagus, Via Natural or Artificial Opening Endoscopic, Diagnostic (ICD-10-PCS; 2017-12-17 08:00)
DX: D50.0 Iron deficiency anemia secondary to blood loss (chronic) (principal); D69.6 Thrombocytopenia, unspecified; K74.60 Unspecified cirrhosis of liver; K29.50 Unspecified chronic gastritis without bleeding; K21.0 Gastro-esophageal reflux disease with esophagitis; K64.8 Other hemorrhoids; K62.1 Rectal polyp; E11.9 Type 2 diabetes mellitus without complications; E03.9 Hypothyroidism, unspecified; I10 Essential (primary) hypertension; E78.5 Hyperlipidemia, unspecified; E78.00 Pure hypercholesterolemia, unspecified; R07.9 Chest pain, unspecified; J45.909 Unspecified asthma, uncomplicated; Z93.3 Colostomy status; Z85.038 Personal history of other malignant neoplasm of large intestine; Z79.1 Long term (current) use of non-steroidal anti-inflammatories (NSAID); Z79.4 Long term (current) use of insulin; Z79.02 Long term (current) use of antithrombotics/antiplatelets; Z90.49 Acquired absence of other specified parts of digestive tract; Z90.710 Acquired absence of both cervix and uterus; Z92.21 Personal history of antineoplastic chemotherapy

== ENCOUNTER 2018-01-12 11:11 | Inpatient (IN) | payer OTHER ==
[2018-01-12 11:12] VITALS: BMI 37.2
[2018-01-12] MEDS ORDERED: Famotidine 20mg/50ml 20 MG in Premixed IV 50 EA IVPB STA (11:54)
[2018-01-12] MEDS ORDERED: Sodium Chloride 0.9% 1,000 ML IV STA ×2 (11:55→14:51)
--- NOTE | 2018-01-12 11:59 | ED PDOC ---
HPI: Abdomen <Betty Funez Y - Last Filed: 01/12/18 14:51> Chief Complaint (Provider): abd pain History Per: Patient (62 y/o female h/o DM/ SBO/ Hernia repair/appendectomy/ abd wall abscess here with vomiting and diarrhea x 5 days after eating 'liver'. States she has h/o cirrhosis as well. Notes dark stools.) <Debbie Antonio - Last Filed: 01/12/18 15:17> Time Seen by Provider: 01/12/18 11:56 Chief Complaint (Nursing): Abdominal Pain Past Medical History <Betty Funez Y - Last Filed: 01/12/18 14:51> Reviewed: Historical Data, Nursing Documentation, Vital Signs - Medical History PMH: Anemia, Anxiety, Asthma, Bronchitis, Depression, Diabetes, HTN, Hypercholesterolemia, Hyperlipidemia, Hypothyroidism Denies: Hepatitis, HIV, Chronic Kidney Disease, Seizures, Sexually Transmitted Disease - Surgical History Surgical History: Appendectomy, Cholecystectomy, Hernia Repair - Family History Family History: States: Unknown Family Hx, Hypertension - Immunization History Hx Tetanus Toxoid Vaccination: No Hx Influenza Vaccination: Yes Hx Pneumococcal Vaccination: No <Debbie Antonio - Last Filed: 01/12/18 15:17> Vital Signs: Last Vital Signs Temp 98.1 F 01/12/18 14:37 Pulse 85 01/12/18 14:37 Resp 16 01/12/18 14:37 BP 108/58 L 01/12/18 14:37 Pulse Ox 99 01/12/18 14:05 - Home Medications Home Medications: Ambulatory Orders Medication Instructions Recorded Albuterol Sulfate [Ventolin Hfa] 2 puff IH Q6 PRN 01/12/18 Ascorbic Acid [Vitamin C 500 mg 500 mg PO DAILY 01/12/18 Tab] Atorvastatin [Lipitor] 20 mg PO DAILY 01/12/18 Clopidogrel [Plavix] 75 mg PO DAILY 01/12/18 Cyanocobalamin [Vitamin B12 1000 1,000 mcg PO DAILY 01/12/18 mcg Tab] Docusate Sodium [Camacho' 100 mg PO BID 01/12/18 Laxative] Ferrous Sulfate [Feosol] 325 mg PO TID 01/12/18 Gabapentin [Neurontin] 300 mg PO Q8 01/12/18 Insulin Aspart Prot/Insuln Asp 15 unit SC BRK 01/12/18 [Novolog Mix 70-30 Vial] Insulin Glargine,Hum.rec.anlog 34 unit SC BID 01/12/18 [Basaglar Kwikpen U-100] Levothyroxine [Synthroid] 175 mcg PO DAILY 01/12/18 Lisinopril [Zestril] 20 mg PO DAILY 01/12/18 Magnesium Oxide [Mag-Ox] 400 mg PO DAILY 01/12/18 Mirtazapine [Remeron] 30 mg PO HS 01/12/18 Nitroglycerin [Nitrostat] 0.4 mg SL Q5MIN PRN 01/12/18 Pramipexole [Mirapex] 0.5 mg PO HS 01/12/18 Ranitidine HCl [Zantac] 150 mg PO BID 01/12/18 Zolpidem [Ambien] 5 mg PO HS 01/12/18 - Allergies Allergies/Adverse Reactions: Allergies Allergy/AdvReac Type Severity Reaction Status Date / Time No Known Allergies Allergy Verified 01/12/18 11:30 Review of Systems ROS Statement: Except As Marked, All Systems Reviewed And Found Negative <Debbie Antonio B - Last Filed: 01/12/18 15:17> Physical Exam - Reviewed Nursing Documentation Reviewed: Yes Vital Signs Reviewed: Yes - Physical Exam Appears: Positive for: Well, Non-toxic, No Acute Distress Head Exam: Positive for: ATRAUMATIC, NORMAL INSPECTION, NORMOCEPHALIC Skin: Positive for: Normal Color, Warm, DRY Eye Exam: Positive for: EOMI, Normal appearance, PERRL ENT: Positive for: Normal ENT Inspection Neck: Positive for: Normal, Painless ROM Cardiovascular/Chest: Positive for: Regular Rate, Rhythm Respiratory: Positive for: CNT, Normal Breath Sounds Gastrointestinal/Abdominal: Positive for: Normal Exam, Soft, Tenderness ( epigastric/ruq tenderness) Back: Positive for: Normal Inspection Extremity: Positive for: Normal ROM Neurologic/Psych: Positive for: Alert, Oriented <Debbie Antonio B - Last Filed: 01/12/18 15:17> - Laboratory Results Result Diagrams: 01/12/18 12:20 01/12/18 12:20 <Betty Funez - Last Filed: 01/12/18 14:51> - Laboratory Results Result Diagrams: 01/12/18 12:20 01/12/18 12:20 - ECG O2 Sat by Pulse Oximetry: 99 <Debbie Antonio - Last Filed: 01/12/18 15:17> - Progress ED Course And Treament: EKG 11:48 NSR 94 BPM; T WAVE INVERSION ANTEROLATERAL LEADS PEPCID 20 MG IV X 1 DOSE PROTONIX 80 MG IV BOLUS. ZOFRAN 4 MG IV X 1 DOSE PATIENT FEELS IMPROVED. NS 1 LITER GIVEN IN ED. US ABDOMEN: NO GALLSTONES. HGB 4.4 NOTED TYPE AND CROSS 2 UNITS. PROTONIX DRIP ORDERED. 1 PACKED RBC STARTED IN ED. D/W DR. TAMEZ PLASTICS TOOLING ENGINEER FOR DR ABURTO D/W DR. LOPEZ FOR GI SEEN BY DR. LOPEZ IN ED. WILL UPGRADE TO ICU. EJ PLACED LEFT SIDE OF NECK BY DR. FUNEZ. PATIENT NOTES CHEST PAIN. REPEAT EKG NSR 94BPM WITH SIMILAR T WAVE INVERSIONS NOTED ANTEROLATERAL NO CHANGE FROM PRIOR EKG. (Debbie Antonio) Medical Decision Making <Betty Funez - Last Filed: 01/12/18 14:51> <Debbie Antonio - Last Filed: 01/12/18 15:17> Medical Decision Making: Time: 1428 Provider evaluated patient with PA. Patient presents with melena x5 days. (+) Guaiac test. Hemoglobin: 4. --Patient is currently undergoing blood transfusion. B/P is low, otherwise, alert x oriented. --Provider established EZ on left side for additional IV access. --Patient is accepted for ICU admission. --Case discussed with SUSAN, Dr. Lopez whom will see patient at bedside. Scribe Attestation: Documented by Jodie Chong, acting as a scribe for Betty Funez MD. Provider Scribe Attestation: All medical record entries made by the Scribe were at my direction and personally dictated by me. I have reviewed the chart and agree that the record accurately reflects my personal performance of the history, physical exam, medical decision making, and the department course for this patient. I have also personally directed, reviewed, and agree with the discharge instructions and disposition. (Betty Funez) Disposition <Betty Funez - Last Filed: 01/12/18 14:51> - Patient ED Disposition Is Patient to be Admitted: Yes - Disposition Disposition Time: 13:57 <Debbie Antonio - Last Filed: 01/12/18 15:17> - Clinical Impression Clinical Impression: Gastrointestinal bleeding - Disposition Condition: FAIR
[2018-01-12] MEDS ORDERED: Sterile Water 20 ML IV ONE (12:26)
[2018-01-12 12:51] LABS: BASO % 1.5 % (0.0-2.0); EOS % 1.9 % (0.0-4.0); LYMPH # 0.5 K/uL (1.0-4.3); LYMPH % 18.6 % (20.0-40.0); MEAN CELL VOLUME 87.8 fl (81.0-99.0); MEAN CORPUSCULAR HEMOGLOBIN 25.7 pg (27.0-31.0); MEAN CORPUSCULAR HGB CONC 29.3 g/dL (33.0-37.0); MEAN PLATELET VOLUME 11.1 fl (7.2-11.7); MONO # 0.2 K/uL (0.0-0.8); MONO % 6.1 % (0.0-10.0); NEUT # 1.9 K/uL (1.8-7.0); NEUT % 71.9 % (50.0-75.0); NRBC % 0.2 % (0.0-0.0); RBC 1.73 Mil/uL (3.80-5.20); RED CELL DISTRIBUTION WIDTH 17.9 % (11.5-14.5); WHITE BLOOD COUNT 2.6 K/uL (4.8-10.8)
[2018-01-12 12:55] LABS: ALBUMIN 3.1 g/dL (3.5-5.0); ALT/SGPT 21 U/L (9-52); AST/SGOT 29 U/L (14-36); BLOOD UREA NITROGEN 11 mg/dl (7-17); CALCIUM 8.1 mg/dL (8.4-10.2); GFR AFRICAN-AMERICAN > 60; GFR NON-AFRICAN AMERICAN > 60; LIPASE 68 U/L (23-300)
[2018-01-12 12:57] LABS: HEMOGLOBIN 4.4 g/dL (12.0-16.0)
[2018-01-12 13:31] LABS: INR 1.2 (0.9-1.2); PROTHROMBIN TIME 13.6 Seconds (9.8-13.1)
--- NOTE | 2018-01-12 13:43 | US ---
Date of service: 01/12/2018 HISTORY: ruq/epigastric pain right upper quadrant, epigastric pain. COMPARISON: 04/29/2011. Abdominal ultrasound. 12/15/2017 CT abdomen and pelvis. TECHNIQUE: Sonographic evaluation of the right upper quadrant of the abdomen. FINDINGS: LIVER: Measures 17.3 cm in length. Hepatopedal blood flow. Fatty infiltration manifest ultrasonographically as increased echogenicity of the liver parenchyma. Hypoechoic mass left hepatic lobe 1.2 x 1.6 cm. The finding was not apparent on recent CT scan on the prior ultrasound. GALLBLADDER: Status post cholecystectomy. No abnormality is seen in the gallbladder fossa. COMMON BILE DUCT: Measures 9.4 mm. Dilated common duct consistent with post cholecystectomy state. PANCREAS: Unremarkable as visualized. No mass. No ductal dilatation. RIGHT KIDNEY: Measures 5.9 x 11.8 cm in length. Normal echogenicity. No calculus, mass, or hydronephrosis. AORTA: No aneurysmal dilatation. IVC: Unremarkable. OTHER FINDINGS: Left pleural effusion incompletely visualized. IMPRESSION: Hypoechoic lesion 1.2 x 1.6 cm left hepatic lobe. No CT correlate to this finding. No acute findings related to/accounting for the clinical presentation.
[2018-01-12] MEDS: Pantoprazole 40 MG in Sodium Chloride 0.9% 100 ML IVPB SCH ×2 (15:32→21:52)
[2018-01-12] MEDS ORDERED: Albuterol 0.083% Inhal Sol (2.5 mg/3 mL) UD INH PRN (18:45)
[2018-01-12] MEDS ORDERED: Potassium Chl 20 mEq in NS 1,000 ML IV SCH (19:00)
--- NOTE | 2018-01-12 19:55 | CP.PCM.CON ---
History of Present Illness - History of Present Illness History of Present Illness: 62 yo female with h/o previous abdominal surgery for infection of mesh admitted for severe anemia and 5 day h/o melena . Patient states it started after eating liver. She has been feeling extremely weak. Takes Plavix. Review of Systems - Constitutional Constitutional: absent: Chills - EENT Eyes: absent: Blurred Vision Nose/Mouth/Throat: absent: Nasal Congestion - Cardiovascular Cardiovascular: absent: Acrocyanosis - Respiratory Respiratory: absent: Dyspnea - Gastrointestinal Gastrointestinal: absent: Abdominal Pain - Genitourinary Genitourinary: absent: Change in Urinary Stream Past Patient History - Past Medical History & Family History Past Medical History?: Yes - Past Social History Smoking Status: Never Smoked - CARDIAC Hx Hypercholesterolemia: Yes Hx Hypertension: Yes - PULMONARY Hx Asthma: Yes Hx Bronchitis: Yes - NEUROLOGICAL Hx Seizures: No - HEENT Hx HEENT Problems: No - RENAL Hx Chronic Kidney Disease: No - ENDOCRINE/METABOLIC Hx Hypothyroidism: Yes - HEMATOLOGICAL/ONCOLOGICAL Hx Anemia: Yes Hx Human Immunodeficiency Virus (HIV): No - INTEGUMENTARY Hx Dermatological Problems: No - MUSCULOSKELETAL/RHEUMATOLOGICAL Hx Musculoskeletal Disorders: Yes Hx Falls: Yes - GASTROINTESTINAL Hx Gastrointestinal Disorders: Yes Hx Bowel Surgery: Yes Hx Colostomy: Yes (reversed 2008) Hx Gastroesophageal Reflux: Yes Other/Comment: colon ca - GENITOURINARY/GYNECOLOGICAL Hx Sexually Transmitted Disorders: No - PSYCHIATRIC Hx Anxiety: Yes Hx Depression: Yes - SURGICAL HISTORY Hx Appendectomy: Yes Hx Cholecystectomy: Yes - ANESTHESIA Hx Anesthesia: Yes Hx Anesthesia Reactions: No Hx Malignant Hyperthermia: No Meds Allergies/Adverse Reactions: Allergies Allergy/AdvReac Type Severity Reaction Status Date / Time No Known Allergies Allergy Verified 01/12/18 11:30 - Medications Medications: Current Medications Albuterol Sulfate (Albuterol 0.083% Inhal Tracey (2.5 Mg/3 Ml) Ud) 2.5 mg INH RQ6 PRN PRN Reason: Shortness of Breath Gabapentin (Neurontin) 300 mg PO BID [facility] Pantoprazole Sodium 40 mg/ (Sodium Chloride) 100 mls @ 20 mls/hr IVPB Q5H [facility] PRN Reason: 8 MG/HR Last Admin: 01/12/18 15:32 Dose: 20 mls/hr Potassium Chloride/Sodium Chloride (Potassium Chl 20 Meq In Ns) 1,000 mls @ 50 mls/hr IV .Q20H [facility] Stop: 01/13/18 18:46 Insulin Human Regular (Humulin R) 0 units SC ACHS [facility] PRN Reason: Protocol Levothyroxine Sodium (Synthroid) 175 mcg PO DAILY@0630 [facility] Lisinopril (Zestril) 20 mg PO DAILY [facility] Pramipexole Dihydrochloride (Mirapex) 0.5 mg PO DAILY [facility] Physical Exam - Head Exam Head Exam: ATRAUMATIC - Eye Exam Eye Exam: EOMI - ENT Exam ENT Exam: Mucous Membranes Moist - Respiratory Exam Respiratory Exam: Clear to Auscultation Bilateral, NORMAL BREATHING PATTERN - Cardiovascular Exam Cardiovascular Exam: REGULAR RHYTHM, +S1, +S2 - GI/Abdominal Exam GI & Abdominal Exam: Normal Bowel Sounds, Soft. absent: Tenderness - Extremities Exam Extremities exam: Positive for: normal inspection Results - Vital Signs Recent Vital Signs: Last Vital Signs Temp 98.9 F 01/12/18 19:03 Pulse 85 01/12/18 19:03 Resp 18 01/12/18 19:03 BP 102/50 L 01/12/18 19:03 Pulse Ox 100 01/12/18 16:45 - Labs Result Diagrams: 01/12/18 12:20 01/12/18 12:20 Labs: Laboratory Results - last 24 hr 01/12/18 01/12/18 01/12/18 11:41 12:20 12:20 WBC 2.6 L RBC 1.73 L Hgb 4.4 L* D Hct 15.2 L MCV 87.8 D MCH 25.7 L MCHC 29.3 L RDW 17.9 H Plt Count 92 L MPV 11.1 Neut % (Auto) 71.9 Lymph % (Auto) 18.6 L Fajardo % (Auto) 6.1 Eos % (Auto) 1.9 Baso % (Auto) 1.5 Neut # (Auto) 1.9 Lymph # (Auto) 0.5 L Fajardo # (Auto) 0.2 Eos # (Auto) 0.0 Baso # (Auto) 0.0 PT INR Sodium 138 Potassium 3.6 Chloride 107 Carbon Dioxide 20 L Anion Gap 15 BUN 11 Creatinine 0.6 L Est GFR ( Amer) > 60 Est GFR (Non-Af Amer) > 60 POC Glucose (mg/dL) 202 H Random Glucose 163 H Calcium 8.1 L Magnesium 1.7 Total Bilirubin 0.9 AST 29 ALT 21 Alkaline Phosphatase 69 Troponin I < 0.0120 Total Protein 6.3 Albumin 3.1 L Globulin 3.2 Albumin/Globulin Ratio 1.0 Lipase 68 Blood Type Antibody Screen Crossmatch BBK History Checked 01/12/18 01/12/18 12:20 13:15 WBC RBC Hgb Hct MCV MCH MCHC RDW Plt Count MPV Neut % (Auto) Lymph % (Auto) Fajardo % (Auto) Eos % (Auto) Baso % (Auto) Neut # (Auto) Lymph # (Auto) Fajardo # (Auto) Eos # (Auto) Baso # (Auto) PT 13.6 H INR 1.2 Sodium Potassium Chloride Carbon Dioxide Anion Gap BUN Creatinine Est GFR ( Amer) Est GFR (Non-Af Amer) POC Glucose (mg/dL) Random Glucose Calcium Magnesium Total Bilirubin AST ALT Alkaline Phosphatase Troponin I Total Protein Albumin Globulin Albumin/Globulin Ratio Lipase Blood Type A POSITIVE Antibody Screen Negative Crossmatch See Detail BBK History Checked Patient has bt Assessment & Plan (1) Gastrointestinal bleeding Assessment and Plan: 5 day h/o melena. Normal BUN/Cr c/w subacute bleed. Patient on Plavix. Patient should go to ICU, transfused to Hgb of 8, and started on pantoprazole drip 8mg/ hour. Upper endoscopy most likely Friday when patient has been stabilized. Status: Acute
[2018-01-12] MEDS: Insulin Regular 100 units/ml SC SCH (23:51)
[2018-01-13] MEDS ORDERED: Oxycodone/Acetaminophen 5/325 mg Tab ONE (04:29)
[2018-01-13] MEDS: Pantoprazole 40 MG in Sodium Chloride 0.9% 100 ML IVPB SCH ×2 (04:29→21:00)
[2018-01-13] MEDS: Oxycodone/Acetaminophen 5/325 mg Tab PO PRN ×2 (04:29→14:43)
--- NOTE | 2018-01-13 06:53 | CON ---
DATE: 01/12/2018 CRITICAL CARE CONSULTATION The patient is in ER, being admitted to ICU. REASON FOR CONSULTATION: A 62-year-old female, presenting with abdominal pain, nausea, vomiting, and diarrhea since last 5 days, noted to have low hemoglobin. HISTORY OF PRESENT ILLNESS: History is obtained through shackler. Reviewed events in ER. A 62-year-old female with history significant for diabetes mellitus type 2, hypertension, hyperlipidemia, depression, anxiety, anemia of chronic disease, hyperlipidemia, hypothyroidism. She is status post appendectomy, cholecystectomy, and hernia repair. She is being followed by Hematology/Oncology, Dr. Jay. The patient reportedly had colon resection for colon cancer, unclear details, did not have any chemoradiation treatment, had a bone marrow biopsy 2 years ago, reportedly negative. MEDICATIONS: The patient has been on various medications including Ventolin HFA, ascorbic acid, atorvastatin, Plavix, cyanocobalamin, Colace, ferrous sulfate, gabapentin, insulin aspart 15 units subcu breakfast, insulin glargine 34 units twice daily, levothyroxine, lisinopril, magnesium oxide, mirtazapine, pramipexole, ranitidine, zolpidem, reportedly compliant with the medications. ALLERGIES: NONE DOCUMENTED. SOCIAL HISTORY: Denies smoking, drinking alcohol. No recreational drug use. In ER, the patient's vital signs showed temperature 98.3, heart rate of 94, respiratory rate 20, oxygen saturation 99%. Initial lab data showed hemoglobin 4.4, hematocrit 15.2, platelet count of 92, white count of 2.6. The patient was given IV fluid and transfusion of 1 unit of packed red blood cells. Her vital signs improved and maintained blood pressure of 108/58, respiratory rate 15, heart rate 83. PHYSICAL EXAMINATION: GENERAL: A middle-aged, morbidly obese female; oriented to name, place and time. Emotionally labile; complaining of dizziness, headache, discomfort in the chest; pain in the epigastric area, lower abdomen; pain on the lower extremities. VITAL SIGNS: Temperature 97.9, heart rate 83, blood pressure 108/58, respiratory rate 15, saturation 100% on room air. Intake 325 ml, output not documented. Weight of 218 pounds. EXAMINATION of HEAD, EYES, EARS, NOSE, AND THROAT: Pupils are reactive. Conjunctivae pale. Sclerae are white. NECK: Short, reduced oropharyngeal air space. CHEST: Bilateral breath sounds, diminished in intensity. HEART: Rhythm regular. S1, S2 distant. ABDOMEN: Obese, mild epigastric tenderness. No rebound tenderness. EXTREMITIES: Trace edema. DP palpable. NEUROLOGIC: Oriented to name, place, and time. Moves all four extremities. LABORATORY DATA: WBC 2.6, hemoglobin 4.04, hematocrit 15.2, platelet count of 92, neutrophils 71.9, lymphocytes 18.6, monocytes 6.1. PT 13.6, INR 1.2. Chemistry: Sodium 138, potassium 3.6, chloride 107, CO2 of 20, blood urea nitrogen 11, creatinine 0.46, random glucose 163, calcium 8.1, magnesium 1.7, total bilirubin 0.9, AST 29, ALT 21, alkaline phosphatase 69. Troponin less than 0.0120, total protein 6.3, albumin 3.1, lipase 68. Abdominal ultrasound: Status post cholecystectomy, no abnormality in the gallbladder fossa. Common bile duct measures 9.4 mm, dilated common duct consistent with post cholecystectomy, unremarkable pancreas, unremarkable right kidney, no calculus, no aneurysmal dilatation, left pleural effusion completely visualized, hypoechoic lesion 1.2 x 1.6 cm left hepatic lobe. Electrocardiogram, EKG shows sinus rhythm with premature atrial complexes, ST-T abnormality in the inferolateral leads. IMPRESSION: 1. Neuro: Alert and awake, emotionally labile, history of anxiety and depression. Closely monitor. 2. Cardiac: Abnormal EKG, rule out ischemic heart disease. Cardiology consult. Troponin every 8 hours times 3, isosorbide, nitroglycerin 0.4 mg sublingual p.r.n. 3. Pulmonary: No acute issues noted, saturating over 94%. 4. Hematology: Pancytopenia, question myelodysplastic syndrome. History of colon cancer, unclear details. Hyperechoic lesion in the liver, rule out metastatic disease. 5. Rule out gastrointestinal bleeding. 6. Renal: Normal renal function. No electrolyte imbalance noted. 7. Endocrinology: History of diabetes mellitus. Continue Accu-Chek with regular insulin coverage. Hypothyroidism, on levothyroxine. 8. Infection. No evidence of acute infection noted. PLAN: To continue nitroglycerin 0.4 mg sublingual p.r.n., albuterol solution 2.5 mg via nebulizer every 6 hours p.r.n. Hold Plavix secondary to ongoing GI bleeding. Continue gabapentin 300 mg every 8 hours, Accu-Chek with regular insulin coverage, levothyroxine 175 mcg daily, Protonix IV daily, transfuse 2 units of packed red blood cells. GI, hematology, and cardiology consult. Damon Soliz MD
[2018-01-13] MEDS: Levothyroxine 175 MCG TAB PO SCH (06:54)
[2018-01-13] MEDS: Insulin Regular 100 units/ml SC SCH ×4 (08:08→21:26)
[2018-01-13 08:56] LABS: EOS # 0.1 K/uL (0.0-0.7); EOS % 4.5 % (0.0-4.0); LYMPH # 0.6 K/uL (1.0-4.3); LYMPH % 18.5 % (20.0-40.0); MEAN CELL VOLUME 83.7 fl (81.0-99.0); MEAN CORPUSCULAR HEMOGLOBIN 26.3 pg (27.0-31.0); MEAN CORPUSCULAR HGB CONC 31.4 g/dL (33.0-37.0); MEAN PLATELET VOLUME 10.2 fl (7.2-11.7); MONO # 0.2 K/uL (0.0-0.8); MONO % 7.4 % (0.0-10.0); NEUT # 2.1 K/uL (1.8-7.0); NEUT % 68.6 % (50.0-75.0); NRBC % 0.1 % (0.0-0.0); RBC 2.48 Mil/uL (3.80-5.20); RED CELL DISTRIBUTION WIDTH 17.6 % (11.5-14.5); WHITE BLOOD COUNT 3.1 K/uL (4.8-10.8)
[2018-01-13 08:59] LABS: HEMOGLOBIN 6.5 g/dL (12.0-16.0)
[2018-01-13 09:08] LABS: ALB/GLOB RATIO 0.9 (1.0-2.1); ALT/SGPT 22 U/L (9-52); AST/SGOT 32 U/L (14-36); BLOOD UREA NITROGEN 9 mg/dl (7-17); GFR AFRICAN-AMERICAN > 60; GFR NON-AFRICAN AMERICAN > 60
--- NOTE | 2018-01-13 09:48 | CARD ---
APPROVED REPORT Date of service: 01/12/2018 EKG Measurement Heart [id number] <Conclusion> Sinus rhythm with premature atrial complexes ST & T wave abnormality, consider inferolateral ischemia Prolonged QT Abnormal ECG
--- NOTE | 2018-01-13 10:52 | CP.PCM.CON ---
Past Patient History - Past Medical History & Family History Past Medical History?: Yes - Past Social History Smoking Status: Never Smoked - CARDIAC Hx Cardiac Disorders: Yes Hx Heart Attack: No Hx Hypercholesterolemia: Yes Hx Hypertension: Yes Hx Pacemaker: No Hx Peripheral Edema: Yes - PULMONARY Hx Respiratory Disorders: Yes Hx Asthma: Yes Hx Bronchitis: No - NEUROLOGICAL Hx Neurological Disorder: Yes HX Cerebrovascular Accident: Yes Hx Dizziness: Yes Hx Seizures: No Hx Syncope: Yes - HEENT Hx HEENT Problems: Yes Hx Blind: Yes (left eye) Hx Epistaxis: Yes Hx Glaucoma: Yes (left eye) - RENAL Hx Chronic Kidney Disease: No - ENDOCRINE/METABOLIC Hx Endocrine Disorders: Yes Hx Diabetes Mellitus Type 2: Yes Hx Hyperthyroidism: No Hx Hypothyroidism: No - HEMATOLOGICAL/ONCOLOGICAL Hx Blood Disorders: Yes Hx AIDS: No Hx Anemia: Yes Hx Blood Transfusions: Yes Hx Blood Transfusion Reaction: No Hx Cancer: Yes Hx Human Immunodeficiency Virus (HIV): No - INTEGUMENTARY Hx Dermatological Problems: No - MUSCULOSKELETAL/RHEUMATOLOGICAL Hx Musculoskeletal Disorders: Yes Hx Arthritis: Yes Hx Back Pain: Yes Hx Falls: Yes Hx Unsteady Gait: Yes - GASTROINTESTINAL Hx Gastrointestinal Disorders: Yes Hx Bowel Surgery: Yes Hx Colostomy: Yes (reversed 2008) Hx Gastroesophageal Reflux: Yes Hx Nausea: Yes Hx Vomiting: Yes Other/Comment: colon ca - GENITOURINARY/GYNECOLOGICAL Hx Genitourinary Disorders: No Hx Sexually Transmitted Disorders: No - PSYCHIATRIC Hx Psychophysiologic Disorder: Yes Hx Anxiety: Yes Hx Depression: Yes Hx Emotional Abuse: No Hx Hallucinations: Yes Hx Physical Abuse: No - SURGICAL HISTORY Hx Surgeries: Yes Hx Appendectomy: Yes Hx Cholecystectomy: Yes Other/Comment: foot surgery - ANESTHESIA Hx Anesthesia: Yes Hx Anesthesia Reactions: No Hx Malignant Hyperthermia: No Has any member of the family had a problem w/ anesthesia?: No Meds Allergies/Adverse Reactions: Allergies Allergy/AdvReac Type Severity Reaction Status Date / Time No Known Allergies Allergy Verified 01/12/18 11:30 - Medications Medications: Current Medications Acetaminophen (Tylenol 325mg Tab) 650 mg PO Q6 PRN PRN Reason: Headache Albuterol Sulfate (Albuterol 0.083% Inhal Tracey (2.5 Mg/3 Ml) Ud) 2.5 mg INH RQ6 PRN PRN Reason: Shortness of Breath Gabapentin (Neurontin) 300 mg PO BID LAUREN Last Admin: 07/23/18 20:41 Dose: 300 mg Pantoprazole Sodium 40 mg/ (Sodium Chloride) 100 mls @ 20 mls/hr IVPB Q5H [facility] PRN Reason: 8 MG/HR Last Admin: 01/13/18 04:29 Dose: 20 mls/hr Potassium Chloride/Sodium Chloride (Potassium Chl 20 Meq In Ns) 1,000 mls @ 50 mls/hr IV .Q20H [facility] Stop: 01/13/18 18:46 Last Admin: 01/12/18 20:42 Dose: 50 mls/hr Insulin Human Regular (Humulin R) 0 units SC ACHS LAUREN PRN Reason: Protocol Last Admin: 01/13/18 08:08 Dose: Not Given Levothyroxine Sodium (Synthroid) 175 mcg PO DAILY@0630 [facility] Last Admin: 01/13/18 06:54 Dose: 175 mcg Ondansetron HCl (Zofran Inj) 4 mg IVP Q4 PRN PRN Reason: Nausea/Vomiting Last Admin: 01/13/18 02:11 Dose: 4 mg Oxycodone/Acetaminophen (Percocet 5/325 Mg Tab) 1 tab PO Q6 PRN PRN Reason: Pain, moderate (4-7) Stop: 01/16/18 04:03 Last Admin: 01/13/18 04:29 Dose: 1 tab Pramipexole Dihydrochloride (Mirapex) 0.5 mg PO DAILY [facility] Results - Vital Signs Recent Vital Signs: Last Vital Signs Temp 97.4 F L 01/13/18 09:10 Pulse 84 01/13/18 09:22 Resp 15 01/13/18 09:22 BP 129/59 L 01/13/18 09:10 Pulse Ox 100 01/13/18 09:10 - Labs Result Diagrams: 01/13/18 08:45 01/13/18 08:45 Labs: Laboratory Results - last 24 hr 01/12/18 01/12/18 01/12/18 11:41 12:20 12:20 WBC 2.6 L RBC 1.73 L Hgb 4.4 L* D Hct 15.2 L MCV 87.8 D MCH 25.7 L MCHC 29.3 L RDW 17.9 H Plt Count 92 L MPV 11.1 Neut % (Auto) 71.9 Lymph % (Auto) 18.6 L Glascock % (Auto) 6.1 Eos % (Auto) 1.9 Baso % (Auto) 1.5 Neut # (Auto) 1.9 Lymph # (Auto) 0.5 L Glascock # (Auto) 0.2 Eos # (Auto) 0.0 Baso # (Auto) 0.0 PT INR Sodium 138 Potassium 3.6 Chloride 107 Carbon Dioxide 20 L Anion Gap 15 BUN 11 Creatinine 0.6 L Est GFR ( Amer) > 60 Est GFR (Non-Af Amer) > 60 POC Glucose (mg/dL) 202 H Random Glucose 163 H Calcium 8.1 L Magnesium 1.7 Total Bilirubin 0.9 AST 29 ALT 21 Alkaline Phosphatase 69 Troponin I < 0.0120 Total Protein 6.3 Albumin 3.1 L Globulin 3.2 Albumin/Globulin Ratio 1.0 Lipase 68 Stool Occult Blood Blood Type Antibody Screen Crossmatch BBK History Checked 01/12/18 01/12/18 01/12/18 12:20 13:15 18:41 WBC RBC Hgb Hct MCV MCH MCHC RDW Plt Count MPV Neut % (Auto) Lymph % (Auto) Glascock % (Auto) Eos % (Auto) Baso % (Auto) Neut # (Auto) Lymph # (Auto) Glascock # (Auto) Eos # (Auto) Baso # (Auto) PT 13.6 H INR 1.2 Sodium Potassium Chloride Carbon Dioxide Anion Gap BUN Creatinine Est GFR ( Amer) Est GFR (Non-Af Amer) POC Glucose (mg/dL) Random Glucose Calcium Magnesium Total Bilirubin AST ALT Alkaline Phosphatase Troponin I Total Protein Albumin Globulin Albumin/Globulin Ratio Lipase Stool Occult Blood Positive H Blood Type A POSITIVE Antibody Screen Negative Crossmatch See Detail BBK History Checked Patient has bt 01/13/18 01/13/18 01/13/18 00:12 08:00 08:45 WBC 3.1 L RBC 2.48 L Hgb 6.5 L* D Hct 20.8 L MCV 83.7 D MCH 26.3 L MCHC 31.4 L RDW 17.6 H Plt Count 109 L MPV 10.2 Neut % (Auto) 68.6 Lymph % (Auto) 18.5 L Glascock % (Auto) 7.4 Eos % (Auto) 4.5 H Baso % (Auto) 1.0 Neut # (Auto) 2.1 Lymph # (Auto) 0.6 L Gl[place]ock # (Auto) 0.2 Eos # (Auto) 0.1 Baso # (Auto) 0.0 PT INR Sodium Potassium Chloride Carbon Dioxide Anion Gap BUN Creatinine Est GFR ( Amer) Est GFR (Non-Af Amer) POC Glucose (mg/dL) 121 H 136 H Random Glucose Calcium Magnesium Total Bilirubin AST ALT Alkaline Phosphatase Troponin I Total Protein Albumin Globulin Albumin/Globulin Ratio Lipase Stool Occult Blood Blood Type Antibody Screen Crossmatch BBK History Checked 01/13/18 01/13/18 08:45 09:17 WBC RBC Hgb Hct MCV MCH MCHC RDW Plt Count MPV Neut % (Auto) Lymph % (Auto) Glascock % (Auto) Eos % (Auto) Baso % (Auto) Neut # (Auto) Lymph # (Auto) Glascock # (Auto) Eos # (Auto) Baso # (Auto) PT INR Sodium 140 Potassium 3.8 Chloride 111 H Carbon Dioxide 19 L Anion Gap 14 BUN 9 Creatinine 0.7 Est GFR ( Amer) > 60 Est GFR (Non-Af Amer) > 60 POC Glucose (mg/dL) 132 H Random Glucose 121 H Calcium 8.0 L Magnesium Total Bilirubin 1.9 H AST 32 ALT 22 Alkaline Phosphatase 75 Troponin I Total Protein 6.2 L Albumin 3.0 L Globulin 3.2 Albumin/Globulin Ratio 0.9 L Lipase Stool Occult Blood Blood Type Antibody Screen Crossmatch BBK History Checked
--- NOTE | 2018-01-13 11:14 | CP.PCM.HP ---
<Daiana Fleming - Last Filed: 01/13/18 17:19> History of Present Illness - History of Present Illness History of Present Illness: HPI: 62 YO female with PMHx of HTN, DM, HLD, hypothyroidsm, colon CA (hx), SBO presented to [facility] with multiple episodes of coffee/red emesis and diarrhea. Pt states that she chronically gets loose BM at times, but her currently symptoms started about 5 days ago. Symptoms started with multiple episodes of diarrhea with vague abdominal, bloated discomfort and noted dark stool. Since this weekend, started having multiple episodes of emesis and noted coffee round emesis. Of note, pt recently had colonoscopy and endoscopy in November [address] Lopez and was found to have have gastric ulcer. PMD: Sravan Schaffer Specialists: Dr. Jay- heme/onc, Dr. 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 absent: Chills, Fever - Cardiovascular Cardiovascular: absent: Chest Pain, Dyspnea, Palpitations - Respiratory Respiratory: absent: Cough, Dyspnea - Gastrointestinal Gastrointestinal: Bloating, Diarrhea, Hematemesis, Melena - Genitourinary Genitourinary: absent: Dysuria, Hematuria Past Patient History - Past Medical History & Family History Past Medical History?: Yes - Past Social History Smoking Status: Never Smoked - CARDIAC Hx Cardiac Disorders: Yes Hx Heart Attack: No Hx Hypercholesterolemia: Yes Hx Hypertension: Yes Hx Pacemaker: No Hx Peripheral Edema: Yes - PULMONARY Hx Respiratory Disorders: Yes Hx Asthma: Yes Hx Bronchitis: No - NEUROLOGICAL Hx Neurological Disorder: Yes HX Cerebrovascular Accident: Yes Hx Dizziness: Yes Hx Seizures: No Hx Syncope: Yes - HEENT Hx HEENT Problems: Yes Hx Blind: Yes (left eye) Hx Epistaxis: Yes Hx Glaucoma: Yes (left eye) - RENAL Hx Chronic Kidney Disease: No - ENDOCRINE/METABOLIC Hx Endocrine Disorders: Yes Hx Diabetes Mellitus Type 2: Yes Hx Hyperthyroidism: No Hx Hypothyroidism: No - HEMATOLOGICAL/ONCOLOGICAL Hx Blood Disorders: Yes Hx AIDS: No Hx Anemia: Yes Hx Blood Transfusions: Yes Hx Blood Transfusion Reaction: No Hx Cancer: Yes Hx Human Immunodeficiency Virus (HIV): No - INTEGUMENTARY Hx Dermatological Problems: No - MUSCULOSKELETAL/RHEUMATOLOGICAL Hx Musculoskeletal Disorders: Yes Hx Arthritis: Yes Hx Back Pain: Yes Hx Falls: Yes Hx Unsteady Gait: Yes - GASTROINTESTINAL Hx Gastrointestinal Disorders: Yes Hx Bowel Surgery: Yes Hx Colostomy: Yes (reversed 2008) Hx Gastroesophageal Reflux: Yes Hx Nausea: Yes Hx Vomiting: Yes Other/Comment: colon ca - GENITOURINARY/GYNECOLOGICAL Hx Genitourinary Disorders: No Hx Sexually Transmitted Disorders: No - PSYCHIATRIC Hx Psychophysiologic Disorder: Yes Hx Anxiety: Yes Hx Depression: Yes Hx Emotional Abuse: No Hx Hallucinations: Yes Hx Physical Abuse: No - SURGICAL HISTORY Hx Surgeries: Yes Hx Appendectomy: Yes Hx Cholecystectomy: Yes Other/Comment: foot surgery - ANESTHESIA Hx Anesthesia: Yes Hx Anesthesia Reactions: No Hx Malignant Hyperthermia: No Has any member of the family had a problem w/ anesthesia?: No Meds Allergies/Adverse Reactions: Allergies Allergy/AdvReac Type Severity Reaction Status Date / Time No Known Allergies Allergy Verified 01/12/18 11:30 Physical Exam - Constitutional Appears: No Acute Distress - Head Exam Head Exam: NORMAL INSPECTION - Eye Exam Eye Exam: EOMI, Normal appearance - ENT Exam ENT Exam: Mucous Membranes Moist - Respiratory Exam Respiratory Exam: Clear to Auscultation Bilateral. absent: Rales, Rhonchi, Wheezes - Cardiovascular Exam Cardiovascular Exam: REGULAR RHYTHM, +S1, +S2 - GI/Abdominal Exam GI & Abdominal Exam: Distended, Normal Bowel Sounds, Soft, Tenderness (mild tenderness in the lower quadrants and in the epigastria ). absent: Guarding, Rebound - Extremities Exam Extremities exam: Positive for: pedal edema (mild edema ). Negative for: calf tenderness Additional comments: well healing scar noted in the R shine - Neurological Exam Neurological exam: Alert, Oriented x3 - Skin Skin Exam: Pallor Results - Vital Signs Recent Vital Signs: Last Vital Signs Temp 97.4 F L 01/13/18 09:10 Pulse 84 01/13/18 09:22 Resp 15 01/13/18 09:22 BP 129/59 L 07/24/18 09:10 Pulse Ox 100 01/13/18 09:10 - Labs Result Diagrams: 01/13/18 08:45 01/13/18 08:45 Labs: Laboratory Results - last 24 hr 01/12/18 01/12/18 01/12/18 11:41 12:20 12:20 WBC 2.6 L RBC 1.73 L Hgb 4.4 L* D Hct 15.2 L MCV 87.8 D MCH 25.7 L MCHC 29.3 L RDW 17.9 H Plt Count 92 L MPV 11.1 Neut % (Auto) 71.9 Lymph % (Auto) 18.6 L Evangeline % (Auto) 6.1 Eos % (Auto) 1.9 Baso % (Auto) 1.5 Neut # (Auto) 1.9 Lymph # (Auto) 0.5 L Evangeline # (Auto) 0.2 Eos # (Auto) 0.0 Baso # (Auto) 0.0 PT INR Sodium 138 Potassium 3.6 Chloride 107 Carbon Dioxide 20 L Anion Gap 15 BUN 11 Creatinine 0.6 L Est GFR ( Amer) > 60 Est GFR (Non-Af Amer) > 60 POC Glucose (mg/dL) 202 H Random Glucose 163 H Calcium 8.1 L Magnesium 1.7 Total Bilirubin 0.9 AST 29 ALT 21 Alkaline Phosphatase 69 Troponin I < 0.0120 Total Protein 6.3 Albumin 3.1 L Globulin 3.2 Albumin/Globulin Ratio 1.0 Lipase 68 Stool Occult Blood Blood Type Antibody Screen Crossmatch BBK History Checked 01/12/18 01/12/18 01/12/18 12:20 13:15 18:41 WBC RBC Hgb Hct MCV MCH MCHC RDW Plt Count MPV Neut % (Auto) Lymph % (Auto) Evangeline % (Auto) Eos % (Auto) Baso % (Auto) Neut # (Auto) Lymph # (Auto) Evangeline # (Auto) Eos # (Auto) Baso # (Auto) PT 13.6 H INR 1.2 Sodium Potassium Chloride Carbon Dioxide Anion Gap BUN Creatinine Est GFR ( Amer) Est GFR (Non-Af Amer) POC Glucose (mg/dL) Random Glucose Calcium Magnesium Total Bilirubin AST ALT Alkaline Phosphatase Troponin I Total Protein Albumin Globulin Albumin/Globulin Ratio Lipase Stool Occult Blood Positive H Blood Type A POSITIVE Antibody Screen Negative Crossmatch See Detail BBK History Checked Patient has bt 01/13/18 01/13/18 01/13/18 00:12 08:00 08:45 WBC 3.1 L RBC 2.48 L Hgb 6.5 L* D Hct 20.8 L MCV 83.7 D MCH 26.3 L MCHC 31.4 L RDW 17.6 H Plt Count 109 L MPV 10.2 Neut % (Auto) 68.6 Lymph % (Auto) 18.5 L Evangeline % (Auto) 7.4 Eos % (Auto) 4.5 H Baso % (Auto) 1.0 Neut # (Auto) 2.1 Lymph # (Auto) 0.6 L Evangeline # (Auto) 0.2 Eos # (Auto) 0.1 Baso # (Auto) 0.0 PT INR Sodium Potassium Chloride Carbon Dioxide Anion Gap BUN Creatinine Est GFR ( Amer) Est GFR (Non-Af Amer) POC Glucose (mg/dL) 121 H 136 H Random Glucose Calcium Magnesium Total Bilirubin AST ALT Alkaline Phosphatase Troponin I Total Protein Albumin Globulin Albumin/Globulin Ratio Lipase Stool Occult Blood Blood Type Antibody Screen Crossmatch BBK History Checked 01/13/18 01/13/18 08:45 09:17 WBC RBC Hgb Hct MCV MCH MCHC RDW Plt Count MPV Neut % (Auto) Lymph % (Auto) Evangeline % (Auto) Eos % (Auto) Baso % (Auto) Neut # (Auto) Lymph # (Auto) Evangeline # (Auto) Eos # (Auto) Baso # (Auto) PT INR Sodium 140 Potassium 3.8 Chloride 111 H Carbon Dioxide 19 L Anion Gap 14 BUN 9 Creatinine 0.7 Est GFR ( Amer) > 60 Est GFR (Non-Af Amer) > 60 POC Glucose (mg/dL) 132 H Random Glucose 121 H Calcium 8.0 L Magnesium Total Bilirubin 1.9 H AST 32 ALT 22 Alkaline Phosphatase 75 Troponin I Total Protein 6.2 L Albumin 3.0 L Globulin 3.2 Albumin/Globulin Ratio 0.9 L Lipase Stool Occult Blood Blood Type Antibody Screen Crossmatch BBK History Checked Assessment & Plan (1) Diabetes Status: Chronic (2) Hyperlipidemia Status: Chronic (3) Gastrointestinal bleeding Status: Acute (4) Hypertension Status: Chronic - Assessment and Plan (Free Text) Assessment: Assessment/Plan: 62 YO female with PMHx of HTN, DM, HLD, hypothyroidsm, colon CA (hx), SBO admitted for symptomatic anemia, with acute GI bleed. -VS stable -labs reviewed; anemia improved after 2 units of PRBC -will transfuse an additional PRBC -20IV lasix post transfusion -NPO except meds -GI on consult -Hem/Onc on consult -cardiology on consult -plan as ordered Pt seen and examined with Dr. Quispe <Corby Quispe - Last Filed: 01/14/18 06:50> Results - Vital Signs Recent Vital Signs: Last Vital Signs Temp 98.3 F 01/14/18 04:00 Pulse 83 01/14/18 04:00 Resp 16 01/14/18 04:00 BP 101/50 L 01/14/18 04:00 Pulse Ox 97 01/14/18 04:00 - Labs Result Diagrams: 01/14/18 04:27 01/14/18 04:27 Labs: Laboratory Results - last 24 hr 01/12/18 01/13/18 01/13/18 12:20 08:00 08:45 WBC 3.1 L RBC 2.48 L Hgb 6.5 L* D Hct 20.8 L MCV 83.7 D MCH 26.3 L MCHC 31.4 L RDW 17.6 H Plt Count 109 L MPV 10.2 Neut % (Auto) 68.6 Lymph % (Auto) 18.5 L Evangeline % (Auto) 7.4 Eos % (Auto) 4.5 H Baso % (Auto) 1.0 Neut # (Auto) 2.1 Lymph # (Auto) 0.6 L Evangeline # (Auto) 0.2 Eos # (Auto) 0.1 Baso # (Auto) 0.0 Retic Count Sodium Potassium Chloride Carbon Dioxide Anion Gap BUN Creatinine Est GFR ( Amer) Est GFR (Non-Af Amer) POC Glucose (mg/dL) 136 H Random Glucose Calcium Ferritin Total Bilirubin AST ALT Alkaline Phosphatase Troponin I Total Protein Albumin Globulin Albumin/Globulin Ratio Carcinoembryonic Ag Vitamin B12 Folate Blood Type A POSITIVE Antibody Screen Negative Crossmatch See Detail BBK History Checked Patient has bt 01/13/18 01/13/18 01/13/18 08:45 09:17 11:26 WBC RBC Hgb Hct MCV MCH MCHC RDW Plt Count MPV Neut % (Auto) Lymph % (Auto) Evangeline % (Auto) Eos % (Auto) Baso % (Auto) Neut # (Auto) Lymph # (Auto) Evangeline # (Auto) Eos # (Auto) Baso # (Auto) Retic Count 4.2 H D Sodium 140 Potassium 3.8 Chloride 111 H Carbon Dioxide 19 L Anion Gap 14 BUN 9 Creatinine 0.7 Est GFR ( Amer) > 60 Est GFR (Non-Af Amer) > 60 POC Glucose (mg/dL) 132 H Random Glucose 121 H Calcium 8.0 L Ferritin Total Bilirubin 1.9 H AST 32 ALT 22 Alkaline Phosphatase 75 Troponin I Total Protein 6.2 L Albumin 3.0 L Globulin 3.2 Albumin/Globulin Ratio 0.9 L Carcinoembryonic Ag Vitamin B12 Folate Blood Type Antibody Screen Crossmatch BBK History Checked 01/13/18 01/13/18 01/13/18 11:26 13:19 16:33 WBC RBC Hgb Hct MCV MCH MCHC RDW Plt Count MPV Neut % (Auto) Lymph % (Auto) Evangeline % (Auto) Eos % (Auto) Baso % (Auto) Neut # (Auto) Lymph # (Auto) Evangeline # (Auto) Eos # (Auto) Baso # (Auto) Retic Count Sodium Potassium Chloride Carbon Dioxide Anion Gap BUN Creatinine Est GFR ( Amer) Est GFR (Non-Af Amer) POC Glucose (mg/dL) 150 H 160 H Random Glucose Calcium Ferritin 17.1 Total Bilirubin AST ALT Alkaline Phosphatase Troponin I Total Protein Albumin Globulin Albumin/Globulin Ratio Carcinoembryonic Ag 1.0 Vitamin B12 459 Folate > 20.0 Blood Type Antibody Screen Crossmatch BBK History Checked 01/13/18 01/14/18 01/14/18 20:35 01:00 04:27 WBC 3.4 L 3.1 L RBC 2.73 L 2.70 L Hgb 7.5 L 7.5 L Hct 23.3 L 23.0 L MCV 85.4 85.1 MCH 27.6 27.7 MCHC 32.3 L 32.6 L RDW 17.1 H 17.4 H Plt Count 93 L 89 L MPV 10.2 Neut % (Auto) 62.5 Lymph % (Auto) 24.3 Evangeline % (Auto) 6.9 Eos % (Auto) 4.8 H Baso % (Auto) 1.5 Neut # (Auto) 1.9 Lymph # (Auto) 0.7 L Evangeline # (Auto) 0.2 Eos # (Auto) 0.1 Baso # (Auto) 0.0 Retic Count Sodium Potassium Chloride Carbon Dioxide Anion Gap BUN Creatinine Est GFR ( Amer) Est GFR (Non-Af Amer) POC Glucose (mg/dL) 142 H Random Glucose Calcium Ferritin Total Bilirubin AST ALT Alkaline Phosphatase Troponin I Total Protein Albumin Globulin Albumin/Globulin Ratio Carcinoembryonic Ag Vitamin B12 Folate Blood Type Antibody Screen Crossmatch BBK History Checked 01/14/18 01/14/18 04:27 05:12 WBC RBC Hgb Hct MCV MCH MCHC RDW Plt Count MPV Neut % (Auto) Lymph % (Auto) Evangeline % (Auto) Eos % (Auto) Baso % (Auto) Neut # (Auto) Lymph # (Auto) Evangeline # (Auto) Eos # (Auto) Baso # (Auto) Retic Count Sodium 138 Potassium 3.2 L Chloride 109 H Carbon Dioxide 22 Anion Gap 10 BUN 7 Creatinine 0.6 L Est GFR ( Amer) > 60 Est GFR (Non-Af Amer) > 60 POC Glucose (mg/dL) 101 Random Glucose 102 Calcium 7.8 L Ferritin Total Bilirubin 2.1 H AST 33 ALT 23 Alkaline Phosphatase 69 Troponin I < 0.0120 Total Protein 5.9 L Albumin 2.8 L Globulin 3.1 Albumin/Globulin Ratio 0.9 L Carcinoembryonic Ag Vitamin B12 Folate Blood Type Antibody Screen Crossmatch BBK History Checked Assessment & Plan - Assessment and Plan (Free Text) Plan: I was present during evaluation and discussed with Dr fleming re plans of care and mgt. Corby Quispe M.D.
--- NOTE | 2018-01-13 11:36 | CARD ---
APPROVED REPORT Date of service: 01/13/2018 EXAM: Two-dimensional and M-mode echocardiogram with Doppler and color Doppler. Other Information Quality : AverageRhythm : NSR Technically limited study due to LIMITED ECHO WINDOW. INDICATION ICD: HYPOTENSION 2D DIMENSIONS IVSd1.38 (0.7-1.1cm)LVDd4.37 (3.9-5.9cm) LVOT Diameter1.97 (1.8-2.4cm)PWd1.29 (0.7-1.1cm) IVSs1.60 (0.8-1.2cm)LVDs2.23 (2.5-4.0cm) FS (%) 49.0 %PWs1.54 (0.8-1.2cm) M-Mode DIMENSIONS Left Atrium (MM)5.00 (2.5-4.0cm)Aortic Root2.79 (2.2-3.7cm) Aortic Cusp Exc.2.03 (1.5-2.0cm) Aortic Valve AoV Peak Ycaikmbs207.8cm/sAoV VTI27.5cmAO Peak GR.8mmHg LVOT Peak Wramvnnl581.0cm/sLVOT VTI29.59cmAO Mean GR.5mmHg CLARICE (VMAX)1.56yx6LRV (VTI)1.63cm2 Mitral Valve MV E Ippzabok660.8cm/sMV DECEL [id number] A Lmwuvuie48.1cm/s MV VVH08moF/A ratio2.4MVA (PHT)3.77cm2 TDI Lateral E' Peak V10.02cm/sMedial E' Peak V8.47cm/sE/Lateral E'12.1 E/Medial E'14.3 Tricuspid Valve TR Peak Ajnztrnt563ea/sRAP IHORYKBM14lzVxXN Peak Gr.31mmHg [id number] LEFT VENTRICLE The left ventricle is normal size. There is moderate concentric left ventricular hypertrophy. The left ventricular function is normal. The left ventricular ejection fraction is within the normal range. LVEF 70% There is normal LV segmental wall motion. Tissue Doppler imaging reveals abnormal left ventricular diastolic dysfunction. Transmitral Doppler flow pattern is Grade I-abnormal relaxation pattern. No left ventricle thrombus noted on this study. There is no ventricular septal defect visualized. There is no left ventricular aneurysm. There is no mass noted in the left ventricle. RIGHT VENTRICLE The right ventricle is normal size. The right ventricle is mildly hypertrophied. The right ventricular systolic function is normal. ATRIA The left atrium is mildly dilated. The right atrium size is normal. The interatrial septum is intact with no evidence for an atrial septal defect. AORTIC VALVE The aortic valve is normal in structure. No aortic regurgitation is present. There is no aortic valvular stenosis. There is no aortic valvular vegetation. MITRAL VALVE The mitral valve is normal in structure. There is no evidence of mitral valve prolapse. There is no mitral valve stenosis. There is no mitral valve regurgitation noted. TRICUSPID VALVE The tricuspid valve is normal in structure. There is mild to moderate tricuspid regurgitation. PEAK REGURGITATION DOPPLER IS ABNORMAL AT 29 MMHg There is no tricuspid valve prolapse or vegetation. There is no tricuspid valve stenosis. PULMONIC VALVE The pulmonary valve is normal in structure. There is no pulmonic valvular regurgitation. There is no pulmonic valvular stenosis. GREAT VESSELS The aortic root is normal in size. The IVC is normal in size and collapses >50% with inspiration. PERICARDIAL EFFUSION The pericardium appears normal. <Conclusion> The left ventricle is normal size. There is moderate concentric left ventricular hypertrophy. The left ventricular function is normal. The left ventricular ejection fraction is within the normal range. LVEF 70% The left atrium is mildly dilated. The right ventricle is mildly hypertrophied. There is mild to moderate tricuspid regurgitation. PEAK REGURGITATION DOPPLER IS ABNORMAL AT 29 MMHg
[2018-01-13] MEDS ORDERED: Lidocaine Hydrochloride 5 ML INJ ONE (12:11)
[2018-01-13 12:16] LABS: FERRITIN 17.1 ng/Ml (11.1-264.0)
--- NOTE | 2018-01-13 12:35 | PCM.SURG1 ---
Surgeon's Initial Post Op Note - Surgeon's Notes Surgeon: Julius Bundy MD Maintenance Helper Utility Engineer: NONE Type of Anesthesia: Local Pre-Operative Diagnosis: Anemia Operative Findings: US showed small but patent right basilic vein Post-Operative Diagnosis: Anemia Operation Performed: Double lumen picc right basilic vein, 33 cm. Tip is in the SVC. Specimen/Specimens Removed: NONE Estimated Blood Loss: EBL {In ML}: 5 Blood Products Given: N/A Drains Used: No Drains Date of Surgery/Procedure: 01/13/18 Time of Surgery/Procedure: 12:30
--- NOTE | 2018-01-13 13:32 | VASCULAR ---
PROCEDURE: Date of procedure: 01/13/2018 Procedure: 1. Placement of a right arm PICC with ultrasound and fluoroscopic guidance, CPT 27911 2. PICC tip confirmation with spot radiograph and is in the superior vena cava Medications: 1 percent lidocaine Total Fluoro time: 2.8 seconds Radiation: 0.57 MGy EBL: 5 cc HISTORY: Infection requiring long-term IV antibiotics TECHNIQUE: Following informed consent and procedure time-out, the patient was placed supine on the interventional table and the right arm prepped and draped in the usual sterile fashion. Ultrasound showed a patent and compressible right basilic vein. After the skin was anesthetized with lidocaine, the basilic vein was accessed with micro micropuncture technique using ultrasound guidance. A guidewire was then advanced under fluoroscopic guidance into the superior vena cava. An image documenting ultrasound guidance for vascular access was permanently saved. The length of the double lumen 5 [place] PICC was trimmed to 35 centimeters and advanced through a peel-away sheath. The PICC was position with tip of PICC confirm a spot radiograph the superior vena cava. The PICC was secured to the patient's skin. The PICC was flushed. A biopatch and sterile dressing was applied. IMPRESSION: Placement of a double lumen 5 [place] PICC trimmed to 35 centimeters via right basilic vein. The tip of the PICC is confirmed with spot radiograph and is in the superior vena cava.
--- NOTE | 2018-01-13 15:58 | CP.PCM.CON ---
History of Present Illness - History of Present Illness History of Present Illness: 62 YO FEMALE WITH SEVERE GIB WITH HEMODYNAMIC CHANGES, SOB AND TACHYCARDIA. PT WAS ON PLAVIX. HAD 1 WEEK OF MELENA. SHE ADMITS TO DWYER AND LH OVER PAST WEEK. NO CP OR PALP. PTS HB INCREASED TO 6.4 OVERNIGHT WITH PRBC. Past Patient History - Past Medical History & Family History Past Medical History?: Yes - Past Social History Smoking Status: Never Smoked - CARDIAC Hx Cardiac Disorders: Yes Hx Heart Attack: No Hx Hypercholesterolemia: Yes Hx Hypertension: Yes Hx Pacemaker: No Hx Peripheral Edema: Yes - PULMONARY Hx Respiratory Disorders: Yes Hx Asthma: Yes Hx Bronchitis: No - NEUROLOGICAL Hx Neurological Disorder: Yes HX Cerebrovascular Accident: Yes Hx Dizziness: Yes Hx Seizures: No Hx Syncope: Yes - HEENT Hx HEENT Problems: Yes Hx Blind: Yes (left eye) Hx Epistaxis: Yes Hx Glaucoma: Yes (left eye) - RENAL Hx Chronic Kidney Disease: No - ENDOCRINE/METABOLIC Hx Endocrine Disorders: Yes Hx Diabetes Mellitus Type 2: Yes Hx Hyperthyroidism: No Hx Hypothyroidism: No - HEMATOLOGICAL/ONCOLOGICAL Hx Blood Disorders: Yes Hx AIDS: No Hx Anemia: Yes Hx Blood Transfusions: Yes Hx Blood Transfusion Reaction: No Hx Cancer: Yes Hx Human Immunodeficiency Virus (HIV): No - INTEGUMENTARY Hx Dermatological Problems: No - MUSCULOSKELETAL/RHEUMATOLOGICAL Hx Musculoskeletal Disorders: Yes Hx Arthritis: Yes Hx Back Pain: Yes Hx Falls: Yes Hx Unsteady Gait: Yes - GASTROINTESTINAL Hx Gastrointestinal Disorders: Yes Hx Bowel Surgery: Yes Hx Colostomy: Yes (reversed 2008) Hx Gastroesophageal Reflux: Yes Hx Nausea: Yes Hx Vomiting: Yes Other/Comment: colon ca - GENITOURINARY/GYNECOLOGICAL Hx Genitourinary Disorders: No Hx Sexually Transmitted Disorders: No - PSYCHIATRIC Hx Psychophysiologic Disorder: Yes Hx Anxiety: Yes Hx Depression: Yes Hx Emotional Abuse: No Hx Hallucinations: Yes Hx Physical Abuse: No - SURGICAL HISTORY Hx Surgeries: Yes Hx Appendectomy: Yes Hx Cholecystectomy: Yes Other/Comment: foot surgery - ANESTHESIA Hx Anesthesia: Yes Hx Anesthesia Reactions: No Hx Malignant Hyperthermia: No Has any member of the family had a problem w/ anesthesia?: No Meds Allergies/Adverse Reactions: Allergies Allergy/AdvReac Type Severity Reaction Status Date / Time No Known Allergies Allergy Verified 01/12/18 11:30 - Medications Medications: Current Medications Acetaminophen (Tylenol 325mg Tab) 650 mg PO Q6 PRN PRN Reason: Headache Last Admin: 01/13/18 12:51 Dose: 650 mg Albuterol Sulfate (Albuterol 0.083% Inhal Tracey (2.5 Mg/3 Ml) Ud) 2.5 mg INH RQ6 PRN PRN Reason: Shortness of Breath Gabapentin (Neurontin) 300 mg PO BID [facility] Last Admin: 01/13/18 12:55 Dose: Not Given Pantoprazole Sodium 40 mg/ (Sodium Chloride) 100 mls @ 20 mls/hr IVPB Q5H LAUREN PRN Reason: 8 MG/HR Last Admin: 01/13/18 04:29 Dose: 20 mls/hr Potassium Chloride/Sodium Chloride (Potassium Chl 20 Meq In Ns) 1,000 mls @ 50 mls/hr IV .Q20H [facility] Stop: 01/13/18 18:46 Last Admin: 01/12/18 20:42 Dose: 50 mls/hr Insulin Human Regular (Humulin R) 0 units SC ACHS LAUREN PRN Reason: Protocol Last Admin: 01/13/18 13:35 Dose: Not Given Levothyroxine Sodium (Synthroid) 175 mcg PO DAILY@0630 [facility] Last Admin: 01/13/18 06:54 Dose: 175 mcg Ondansetron HCl (Zofran Inj) 4 mg IVP Q4 PRN PRN Reason: Nausea/Vomiting Last Admin: 01/13/18 02:11 Dose: 4 mg Pramipexole Dihydrochloride (Mirapex) 0.5 mg PO DAILY [facility] Results - Vital Signs Recent Vital Signs: Last Vital Signs Temp 98.7 F 01/13/18 15:18 Pulse 87 01/13/18 15:18 Resp 14 01/13/18 15:18 BP 130/59 L 01/13/18 15:18 Pulse Ox 100 01/13/18 14:00 - Labs Result Diagrams: 01/13/18 08:45 01/13/18 08:45 Labs: Laboratory Results - last 24 hr 01/12/18 01/12/18 01/13/18 12:20 18:41 00:12 WBC RBC Hgb Hct MCV MCH MCHC RDW Plt Count MPV Neut % (Auto) Lymph % (Auto) [place] % (Auto) Eos % (Auto) Baso % (Auto) Neut # (Auto) Lymph # (Auto) [place] # (Auto) Eos # (Auto) Baso # (Auto) Retic Count Sodium Potassium Chloride Carbon Dioxide Anion Gap BUN Creatinine Est GFR ( Amer) Est GFR (Non-Af Amer) POC Glucose (mg/dL) 121 H Random Glucose Calcium Ferritin Total Bilirubin AST ALT Alkaline Phosphatase Total Protein Albumin Globulin Albumin/Globulin Ratio Carcinoembryonic Ag Vitamin B12 Stool Occult Blood Positive H Blood Type A POSITIVE Antibody Screen Negative Crossmatch See Detail BBK History Checked Patient has bt 01/13/18 01/13/18 01/13/18 08:00 08:45 08:45 WBC 3.1 L RBC 2.48 L Hgb 6.5 L* D Hct 20.8 L MCV 83.7 D MCH 26.3 L MCHC 31.4 L RDW 17.6 H Plt Count 109 L MPV 10.2 Neut % (Auto) 68.6 Lymph % (Auto) 18.5 L [place] % (Auto) 7.4 Eos % (Auto) 4.5 H Baso % (Auto) 1.0 Neut # (Auto) 2.1 Lymph # (Auto) 0.6 L [place] # (Auto) 0.2 Eos # (Auto) 0.1 Baso # (Auto) 0.0 Retic Count Sodium 140 Potassium 3.8 Chloride 111 H Carbon Dioxide 19 L Anion Gap 14 BUN 9 Creatinine 0.7 Est GFR ( Amer) > 60 Est GFR (Non-Af Amer) > 60 POC Glucose (mg/dL) 136 H Random Glucose 121 H Calcium 8.0 L Ferritin Total Bilirubin 1.9 H AST 32 ALT 22 Alkaline Phosphatase 75 Total Protein 6.2 L Albumin 3.0 L Globulin 3.2 Albumin/Globulin Ratio 0.9 L Carcinoembryonic Ag Vitamin B12 Stool Occult Blood Blood Type Antibody Screen Crossmatch BBK History Checked 01/13/18 01/13/18 01/13/18 09:17 11:26 11:26 WBC RBC Hgb Hct MCV MCH MCHC RDW Plt Count MPV Neut % (Auto) Lymph % (Auto) [place] % (Auto) Eos % (Auto) Baso % (Auto) Neut # (Auto) Lymph # (Auto) [place] # (Auto) Eos # (Auto) Baso # (Auto) Retic Count 4.2 H D Sodium Potassium Chloride Carbon Dioxide Anion Gap BUN Creatinine Est GFR ( Amer) Est GFR (Non-Af Amer) POC Glucose (mg/dL) 132 H Random Glucose Calcium Ferritin 17.1 Total Bilirubin AST ALT Alkaline Phosphatase Total Protein Albumin Globulin Albumin/Globulin Ratio Carcinoembryonic Ag 1.0 Vitamin B12 459 Stool Occult Blood Blood Type Antibody Screen Crossmatch BBK History Checked 01/13/18 13:19 WBC RBC Hgb Hct MCV MCH MCHC RDW Plt Count MPV Neut % (Auto) Lymph % (Auto) [place] % (Auto) Eos % (Auto) Baso % (Auto) Neut # (Auto) Lymph # (Auto) [place] # (Auto) Eos # (Auto) Baso # (Auto) Retic Count Sodium Potassium Chloride Carbon Dioxide Anion Gap BUN Creatinine Est GFR ( Amer) Est GFR (Non-Af Amer) POC Glucose (mg/dL) 150 H Random Glucose Calcium Ferritin Total Bilirubin AST ALT Alkaline Phosphatase Total Protein Albumin Globulin Albumin/Globulin Ratio Carcinoembryonic Ag Vitamin B12 Stool Occult Blood Blood Type Antibody Screen Crossmatch BBK History Checked Assessment & Plan (1) DWYER (dyspnea on exertion) Status: Acute (2) Lightheaded Status: Acute (3) Gastrointestinal bleeding Status: Acute (4) Anemia Status: Acute (5) Pancytopenia Status: Acute - Assessment and Plan (Free Text) Plan: PTS HB IMPROVING. PTS ANTIPLT THERAPY HAS BEEN STOPPED. DUAL ANTIPLT NEED IS UNKNOWN AT THIS TIME. CONT TO HOLD UNTIL GIB CONTROLLED. MONITOR HB, CONT TRANSFUSIONS. MONITOR IN ICU. ECHO DONE AND WILL BE REVIEWED. IF CONTINUES TO BLEED SHOULD CONSIDER PLTS AND FFP, GIVEN PANCYTOPENIA AND DUAL ANTIPLT USE.
--- NOTE | 2018-01-13 16:06 | CARD ---
APPROVED REPORT Date of service: 01/12/2018 EKG Measurement Heart [id number] <Conclusion> Sinus rhythm with premature atrial complexes ST & T wave abnormality, consider inferolateral ischemia Abnormal ECG
[2018-01-13 17:56] LABS: FOLATE > 20.0 ng/mL
--- NOTE | 2018-01-13 19:05 | CP.PCM.CON ---
History of Present Illness - History of Present Illness History of Present Illness: 62 year old female with a hsitory of DM, HTN, HL, hypothyroid, colon cancer s/p surgery and adjuvant chemotherapy in 2005, presenting with hematemesis/diarrhea , found to have severe anemia. The patient notes to progressive fatigue which worsening in the last few days. She came to the hospital and was found to have a hgb of 5.0. She is currently s/p 2U PRBC and notes to feeling better. She had a EGD/colonoscopy in November which revealed gastric ulcer. Past medical history: DM, HTN, HL, hypothyroid, colon cancer s/p surgery and adjuvant chemotherapy in 2005. Past surgical history: hemicolectomy, cholecystectomy, hernia repair Family history: Denies hematologic and oncologic problems Social history: Denies tobacco, alcohol, and illicit drug use. Allergies: NKA Review of systems: All remaining review of systems including HEENT, cardiovascular, respiratory, gastrointestinal, genitourinary, musculoskeletal, dermatologic, neurologic, and psychiatric are negative unless mentioned in the HPI. Past Patient History - Past Medical History & Family History Past Medical History?: Yes - Past Social History Smoking Status: Never Smoked - CARDIAC Hx Cardiac Disorders: Yes Hx Heart Attack: No Hx Hypercholesterolemia: Yes Hx Hypertension: Yes Hx Pacemaker: No Hx Peripheral Edema: Yes - PULMONARY Hx Respiratory Disorders: Yes Hx Asthma: Yes Hx Bronchitis: No - NEUROLOGICAL Hx Neurological Disorder: Yes HX Cerebrovascular Accident: Yes Hx Dizziness: Yes Hx Seizures: No Hx Syncope: Yes - HEENT Hx HEENT Problems: Yes Hx Blind: Yes (left eye) Hx Epistaxis: Yes Hx Glaucoma: Yes (left eye) - RENAL Hx Chronic Kidney Disease: No - ENDOCRINE/METABOLIC Hx Endocrine Disorders: Yes Hx Diabetes Mellitus Type 2: Yes Hx Hyperthyroidism: No Hx Hypothyroidism: No - HEMATOLOGICAL/ONCOLOGICAL Hx Blood Disorders: Yes Hx AIDS: No Hx Anemia: Yes Hx Blood Transfusions: Yes Hx Blood Transfusion Reaction: No Hx Cancer: Yes Hx Human Immunodeficiency Virus (HIV): No - INTEGUMENTARY Hx Dermatological Problems: No - MUSCULOSKELETAL/RHEUMATOLOGICAL Hx Musculoskeletal Disorders: Yes Hx Arthritis: Yes Hx Back Pain: Yes Hx Falls: Yes Hx Unsteady Gait: Yes - GASTROINTESTINAL Hx Gastrointestinal Disorders: Yes Hx Bowel Surgery: Yes Hx Colostomy: Yes (reversed 2008) Hx Gastroesophageal Reflux: Yes Hx Nausea: Yes Hx Vomiting: Yes Other/Comment: colon ca - GENITOURINARY/GYNECOLOGICAL Hx Genitourinary Disorders: No Hx Sexually Transmitted Disorders: No - PSYCHIATRIC Hx Psychophysiologic Disorder: Yes Hx Anxiety: Yes Hx Depression: Yes Hx Emotional Abuse: No Hx Hallucinations: Yes Hx Physical Abuse: No - SURGICAL HISTORY Hx Surgeries: Yes Hx Appendectomy: Yes Hx Cholecystectomy: Yes Other/Comment: foot surgery - ANESTHESIA Hx Anesthesia: Yes Hx Anesthesia Reactions: No Hx Malignant Hyperthermia: No Has any member of the family had a problem w/ anesthesia?: No Meds Allergies/Adverse Reactions: Allergies Allergy/AdvReac Type Severity Reaction Status Date / Time No Known Allergies Allergy Verified 01/12/18 11:30 - Medications Medications: Current Medications Acetaminophen (Tylenol 325mg Tab) 650 mg PO Q6 PRN PRN Reason: Headache Last Admin: 01/13/18 12:51 Dose: 650 mg Albuterol Sulfate (Albuterol 0.083% Inhal Tracey (2.5 Mg/3 Ml) Ud) 2.5 mg INH RQ6 PRN PRN Reason: Shortness of Breath Gabapentin (Neurontin) 300 mg PO BID [facility] Last Admin: 01/13/18 16:37 Dose: 300 mg Pantoprazole Sodium 40 mg/ (Sodium Chloride) 100 mls @ 20 mls/hr IVPB Q5H [facility]UREN PRN Reason: 8 MG/HR Last Admin: 01/13/18 04:29 Dose: 20 mls/hr Iron Sucrose 200 mg/ Sodium (Chloride) 110 mls @ 110 mls/hr IVPB DAILY [facility] Stop: 01/18/18 20:01 Insulin Human Regular (Humulin R) 0 units SC ACHS LAUREN PRN Reason: Protocol Last Admin: 01/13/18 16:36 Dose: 2 u Levothyroxine Sodium (Synthroid) 175 mcg PO DAILY@0630 [facility] Last Admin: 01/13/18 06:54 Dose: 175 mcg Ondansetron HCl (Zofran Inj) 4 mg IVP Q4 PRN PRN Reason: Nausea/Vomiting Last Admin: 01/13/18 02:11 Dose: 4 mg Pramipexole Dihydrochloride (Mirapex) 0.5 mg PO DAILY [facility] Last Admin: 01/13/18 16:40 Dose: Not Given Physical Exam - Head Exam Head Exam: ATRAUMATIC - Eye Exam Eye Exam: Normal appearance - ENT Exam ENT Exam: Mucous Membranes Dry - Respiratory Exam Respiratory Exam: NORMAL BREATHING PATTERN - Cardiovascular Exam Cardiovascular Exam: +S1, +S2 - GI/Abdominal Exam GI & Abdominal Exam: Normal Bowel Sounds - Extremities Exam Extremities exam: Positive for: pedal edema - Neurological Exam Neurological exam: Oriented x3 - Psychiatric Exam Psychiatric exam: Normal Affect, Normal Mood - Skin Skin Exam: Warm Results - Vital Signs Recent Vital Signs: Last Vital Signs Temp 98.6 F 01/13/18 18:32 Pulse 84 01/13/18 18:32 Resp 16 01/13/18 18:32 BP 113/55 L 01/13/18 18:32 Pulse Ox 100 01/13/18 18:00 - Labs Result Diagrams: 01/13/18 08:45 01/13/18 08:45 Labs: Laboratory Results - last 24 hr 01/12/18 01/12/18 01/13/18 12:20 18:41 00:12 WBC RBC Hgb Hct MCV MCH MCHC RDW Plt Count MPV Neut % (Auto) Lymph % (Auto) [place] % (Auto) Eos % (Auto) Baso % (Auto) Neut # (Auto) Lymph # (Auto) [place] # (Auto) Eos # (Auto) Baso # (Auto) Retic Count Sodium Potassium Chloride Carbon Dioxide Anion Gap BUN Creatinine Est GFR ( Amer) Est GFR (Non-Af Amer) POC Glucose (mg/dL) 121 H Random Glucose Calcium Ferritin Total Bilirubin AST ALT Alkaline Phosphatase Total Protein Albumin Globulin Albumin/Globulin Ratio Carcinoembryonic Ag Vitamin B12 Folate Stool Occult Blood Positive H Blood Type A POSITIVE Antibody Screen Negative Crossmatch See Detail BBK History Checked Patient has bt 01/13/18 01/13/18 01/13/18 08:00 08:45 08:45 WBC 3.1 L RBC 2.48 L Hgb 6.5 L* D Hct 20.8 L MCV 83.7 D MCH 26.3 L MCHC 31.4 L RDW 17.6 H Plt Count 109 L MPV 10.2 Neut % (Auto) 68.6 Lymph % (Auto) 18.5 L [place] % (Auto) 7.4 Eos % (Auto) 4.5 H Baso % (Auto) 1.0 Neut # (Auto) 2.1 Lymph # (Auto) 0.6 L [place] # (Auto) 0.2 Eos # (Auto) 0.1 Baso # (Auto) 0.0 Retic Count Sodium 140 Potassium 3.8 Chloride 111 H Carbon Dioxide 19 L Anion Gap 14 BUN 9 Creatinine 0.7 Est GFR ( Amer) > 60 Est GFR (Non-Af Amer) > 60 POC Glucose (mg/dL) 136 H Random Glucose 121 H Calcium 8.0 L Ferritin Total Bilirubin 1.9 H AST 32 ALT 22 Alkaline Phosphatase 75 Total Protein 6.2 L Albumin 3.0 L Globulin 3.2 Albumin/Globulin Ratio 0.9 L Carcinoembryonic Ag Vitamin B12 Folate Stool Occult Blood Blood Type Antibody Screen Crossmatch BBK History Checked 01/13/18 01/13/18 01/13/18 09:17 11:26 11:26 WBC RBC Hgb Hct MCV MCH MCHC RDW Plt Count MPV Neut % (Auto) Lymph % (Auto) [place] % (Auto) Eos % (Auto) Baso % (Auto) Neut # (Auto) Lymph # (Auto) [place] # (Auto) Eos # (Auto) Baso # (Auto) Retic Count 4.2 H D Sodium Potassium Chloride Carbon Dioxide Anion Gap BUN Creatinine Est GFR ( Amer) Est GFR (Non-Af Amer) POC Glucose (mg/dL) 132 H Random Glucose Calcium Ferritin 17.1 Total Bilirubin AST ALT Alkaline Phosphatase Total Protein Albumin Globulin Albumin/Globulin Ratio Carcinoembryonic Ag 1.0 Vitamin B12 459 Folate > 20.0 Stool Occult Blood Blood Type Antibody Screen Crossmatch BBK History Checked 01/13/18 01/13/18 13:19 16:33 WBC RBC Hgb Hct MCV MCH MCHC RDW Plt Count MPV Neut % (Auto) Lymph % (Auto) [place] % (Auto) Eos % (Auto) Baso % (Auto) Neut # (Auto) Lymph # (Auto) [place] # (Auto) Eos # (Auto) Baso # (Auto) Retic Count Sodium Potassium Chloride Carbon Dioxide Anion Gap BUN Creatinine Est GFR ( Amer) Est GFR (Non-Af Amer) POC Glucose (mg/dL) 150 H 160 H Random Glucose Calcium Ferritin Total Bilirubin AST ALT Alkaline Phosphatase Total Protein Albumin Globulin Albumin/Globulin Ratio Carcinoembryonic Ag Vitamin B12 Folate Stool Occult Blood Blood Type Antibody Screen Crossmatch BBK History Checked Assessment & Plan (1) Pancytopenia Assessment and Plan: suspect related to cirrhosis, splenic sequestration agree with transfusion support iron deficient, will start IV iron Status: Acute (2) Liver lesion Assessment and Plan: noted on ultrasound will add CEA given hx of colon cancer and AFP given cirrhosis Status: Acute (3) History of colon cancer Assessment and Plan: s/p surgery and adjuvant chemotherapy in 2016 Thank you for this interesting consult. Status: Acute
--- NOTE | 2018-01-13 21:28 | CP.PCM.PN ---
Subjective - Date & Time of Evaluation Date of Evaluation: 01/13/18 Time of Evaluation: 08:30 - Subjective Subjective: Feeling somewhat stronger post transfusion Objective - Vital Signs/Intake and Output Vital Signs (last 24 hours): Temp Pulse Resp BP Pulse Ox 98.6 F 84 16 113/55 L 100 01/13/18 18:32 01/13/18 18:32 01/13/18 18:32 01/13/18 18:32 01/13/18 18:00 Intake and Output: 01/13/18 01/14/18 18:59 06:59 Intake Total 850 Output Total 750 Balance 100 - Medications Medications: Current Medications Acetaminophen (Tylenol 325mg Tab) 650 mg PO Q6 PRN PRN Reason: Headache Last Admin: 01/13/18 20:37 Dose: 650 mg Albuterol Sulfate (Albuterol 0.083% Inhal Tracey (2.5 Mg/3 Ml) Ud) 2.5 mg INH RQ6 PRN PRN Reason: Shortness of Breath Gabapentin (Neurontin) 300 mg PO BID [facility] Last Admin: 01/13/18 16:37 Dose: 300 mg Pantoprazole Sodium 40 mg/ (Sodium Chloride) 100 mls @ 20 mls/hr IVPB Q5H [facility]UREN PRN Reason: 8 MG/HR Last Admin: 01/13/18 04:29 Dose: 20 mls/hr Iron Sucrose 200 mg/ Sodium (Chloride) 110 mls @ 110 mls/hr IVPB DAILY [facility] Stop: 01/18/18 20:01 Last Admin: 01/13/18 20:37 Dose: 110 mls/hr Lactated Ringer's (Lactated Ringer's) 1,000 mls @ 50 mls/hr IV .Q20H [facility] Insulin Human Regular (Humulin R) 0 units SC ACHS LAUREN PRN Reason: Protocol Last Admin: 01/13/18 16:36 Dose: 2 u Levothyroxine Sodium (Synthroid) 175 mcg PO DAILY@0630 [facility] Last Admin: 01/13/18 06:54 Dose: 175 mcg Ondansetron HCl (Zofran Inj) 4 mg IVP Q4 PRN PRN Reason: Nausea/Vomiting Last Admin: 01/13/18 02:11 Dose: 4 mg Pramipexole Dihydrochloride (Mirapex) 0.5 mg PO DAILY [facility] Last Admin: 01/13/18 16:40 Dose: Not Given - Labs Labs: 01/13/18 08:45 01/13/18 08:45 PT 13.6 Seconds (9.8-13.1) H 01/12/18 13:15 INR 1.2 (0.9-1.2) 01/12/18 13:15 - Head Exam Head Exam: ATRAUMATIC - Eye Exam Eye Exam: Normal appearance - ENT Exam ENT Exam: Mucous Membranes Moist - Neck Exam Neck Exam: Full ROM - Respiratory Exam Respiratory Exam: Clear to Ausculation Bilateral - Cardiovascular Exam Cardiovascular Exam: REGULAR RHYTHM - GI/Abdominal Exam GI & Abdominal Exam: Soft. absent: Tenderness Assessment and Plan (1) Gastrointestinal bleeding Assessment & Plan: No active bleeding at the moment. IV protonix. Upper endoscopy in AM Status: Acute
--- NOTE | 2018-01-13 21:51 | PN ---
DATE: 01/13/2018 CRITICAL CARE PROGRESS NOTE LOCATION: The patient in ICU, bed 422. TIME SPENT: 35 minutes. SUBJECTIVE: The patient is seen and evaluated at the bedside. Past medical, surgical, social, and family history reviewed. Events since admission noted, overnight status post transfusion two units of packed red blood cells. Repeat hemoglobin 6.5. Normotensive. Afebrile. Telemetry, sinus rhythm. This morning, alert and awake, follows commands appropriate, appears anxious, complaining of pain on both legs and hip, status post right PICC line insertion. PHYSICAL EXAMINATION: VITAL SIGNS: Temperature 98.4, heart rate 91 and regular, blood pressure 129/69, respiratory rate 16. Intake and output: Intake 650, output not documented. Weight 218 pounds. HEAD, EYES, EARS, NOSE, AND THROAT: Pupils reactive. Conjunctivae pale. Sclerae white. NECK: Supple. Trachea central. CHEST: Bilateral breath sounds. Clear to auscultation. HEART: Rhythm regular. S1, S2 normal. No audible murmur. ABDOMEN: Bowel sounds present. Soft. Pendulous. EXTREMITIES: Trace edema. DP palpable. SKIN: Without rash. NEURO EXAMINATION: Nonfocal. CURRENT MEDICATIONS: Include Tylenol 650 mg every 6 hours p.r.n., albuterol inhalation 2.5 mg every 6 hours p.r.n., Neurontin 300 mg p.o. twice daily, insulin human regular based on Accu-Chek, levothyroxine 175 mcg p.o. daily, Zofran 4 mg IV every 4 hours p.r.n., Percocet one tablet every 6 hours p.r.n., Protonix drip at 8 mg per hour, potassium chloride x1, and pramipexole 0.5 mg p.o. daily. LABORATORY DATA: WBC 3.1, hemoglobin 6.5, hematocrit 20.8, MCV 83.7, platelet count of 109, neutrophils 68.6, lymphocytes 18.5, monocytes 7.4, and eosinophils 4.5. PT 13.6 and INR 1.2. SMA-7: Sodium 140, potassium 3.8, chloride 111, CO2 of 19, blood urea nitrogen 9, creatinine 0.7, random glucose 150, calcium 8. Ferritin 17.1. Total bilirubin 1.9, AST 32, ALT 22, alkaline phosphatase 75, total protein 6.2, albumin 3. Carcinoembryonic antigen 1. Vitamin B12 is 459. Folate pending. Stool occult blood positive. Electrocardiogram: Sinus rhythm with premature atrial complex, ST-T wave abnormality, and possible inferolateral wall ischemia. IMPRESSION: 1. Neurologic: Alert and awake, emotionally labile. History of anxiety and depression. Continue to monitor. Analgesics as needed. Anxiolytic as needed. 2. Cardiac: Abnormal EKG, rule out ischemic heart disease. Cardiology consult pending. Troponin negative. Nitroglycerin 0.4 mg sublingual p.r.n. 3. Pulmonary: No acute issues noted. Saturating over 94%. 4. Hematology: Pancytopenia. Previous workup shows fatty infiltration of liver and possible related pancytopenia. History of colon cancer resection. Oncology on board. Hypoechoic lesion in the liver, rule out metastatic disease. Discussed with Radiology to compare the previous CT abdomen with the current ultrasound. 5. Gastrointestinal: Gastrointestinal bleeding. Gastroenterology on board. Awaiting for endoscopy in the morning. 6. Renal: Normal renal function. No electrolyte imbalance. 7. Endocrinology: History of diabetes mellitus type 2. Currently on Accu-Chek with regular insulin coverage. Hypothyroidism, on levothyroxine. 8. Infectious Disease: No evidence of acute infection. Continue to hold aspirin, Plavix, and nonsteroidal anti-inflammatory medications. Deep venous thrombosis prophylaxis with sequential compression device. Damon Soliz MD
[2018-01-13] MEDS ORDERED: Lactated Ringer's 1,000 ML IV SCH (23:00)
[2018-01-14 01:25] LABS: HEMOGLOBIN 7.5 g/dL (12.0-16.0); MEAN CELL VOLUME 85.4 fl (81.0-99.0); MEAN CORPUSCULAR HEMOGLOBIN 27.6 pg (27.0-31.0); MEAN CORPUSCULAR HGB CONC 32.3 g/dL (33.0-37.0); RBC 2.73 Mil/uL (3.80-5.20); RED CELL DISTRIBUTION WIDTH 17.1 % (11.5-14.5); WHITE BLOOD COUNT 3.4 K/uL (4.8-10.8)
[2018-01-14] MEDS: Pantoprazole 40 MG in Sodium Chloride 0.9% 100 ML IVPB SCH ×2 (02:00→17:45)
[2018-01-14 05:23] LABS: BASO % 1.5 % (0.0-2.0); EOS # 0.1 K/uL (0.0-0.7); EOS % 4.8 % (0.0-4.0); HEMOGLOBIN 7.5 g/dL (12.0-16.0); LYMPH # 0.7 K/uL (1.0-4.3); LYMPH % 24.3 % (20.0-40.0); MEAN CELL VOLUME 85.1 fl (81.0-99.0); MEAN CORPUSCULAR HEMOGLOBIN 27.7 pg (27.0-31.0); MEAN CORPUSCULAR HGB CONC 32.6 g/dL (33.0-37.0); MEAN PLATELET VOLUME 10.2 fl (7.2-11.7); MONO # 0.2 K/uL (0.0-0.8); MONO % 6.9 % (0.0-10.0); NEUT # 1.9 K/uL (1.8-7.0); NEUT % 62.5 % (50.0-75.0); RBC 2.7 Mil/uL (3.80-5.20); RED CELL DISTRIBUTION WIDTH 17.4 % (11.5-14.5); WHITE BLOOD COUNT 3.1 K/uL (4.8-10.8)
[2018-01-14 06:47] LABS: ALB/GLOB RATIO 0.9 (1.0-2.1); ALBUMIN 2.8 g/dL (3.5-5.0); ALT/SGPT 23 U/L (9-52); AST/SGOT 33 U/L (14-36); BLOOD UREA NITROGEN 7 mg/dl (7-17); CALCIUM 7.8 mg/dL (8.4-10.2); GFR AFRICAN-AMERICAN > 60; GFR NON-AFRICAN AMERICAN > 60
[2018-01-14] MEDS: Levothyroxine 175 MCG TAB PO SCH (06:49)
[2018-01-14] MEDS: Insulin Regular 100 units/ml SC SCH ×4 (07:45→22:00)
[2018-01-14] MEDS ORDERED: Potassium Chloride 20 MEQ in Sodium Chloride 0.45% 1,000 ML IV SCH (08:00)
--- NOTE | 2018-01-14 08:20 | CP.PCM.PN ---
Subjective - Date & Time of Evaluation Date of Evaluation: 01/14/18 Time of Evaluation: 08:18 - Subjective Subjective: S/p 4 units of PRBC. No acute overnight events. Pt feeling better after transfusion. VS remain stable. Denies chest pain, dyspnea, n/v/d/c. Objective - Vital Signs/Intake and Output Vital Signs (last 24 hours): Temp Pulse Resp BP Pulse Ox 98.2 F 91 H 25 H 101/50 L 97 01/14/18 08:00 01/14/18 08:00 01/14/18 08:00 01/14/18 04:00 01/14/18 08:00 Intake and Output: 01/14/18 01/14/18 06:59 18:59 Intake Total 740 Balance 740 - Medications Medications: Current Medications Acetaminophen (Tylenol 325mg Tab) 650 mg PO Q6 PRN PRN Reason: Headache Last Admin: 01/13/18 20:37 Dose: 650 mg Albuterol Sulfate (Albuterol 0.083% Inhal Tracey (2.5 Mg/3 Ml) Ud) 2.5 mg INH RQ6 PRN PRN Reason: Shortness of Breath Gabapentin (Neurontin) 300 mg PO BID LAUREN Last Admin: 01/13/18 16:37 Dose: 300 mg Pantoprazole Sodium 40 mg/ (Sodium Chloride) 100 mls @ 20 mls/hr IVPB Q5H LAUREN PRN Reason: 8 MG/HR Last Admin: 01/14/18 02:00 Dose: 20 mls/hr Iron Sucrose 200 mg/ Sodium (Chloride) 110 mls @ 110 mls/hr IVPB DAILY LAUREN Stop: 01/18/18 20:01 Last Admin: 01/13/18 20:37 Dose: 110 mls/hr Lactated Ringer's (Lactated Ringer's) 1,000 mls @ 50 mls/hr IV .Q20H LAUREN Potassium Chloride (Potassium Cl 10meq/50ml Sterile Water) 50 mls @ 50 mls/hr IVPB Q1 [facility] Stop: 01/14/18 11:59 Insulin Human Regular (Humulin R) 0 units SC ACHS LAUREN PRN Reason: Protocol Last Admin: 01/14/18 07:45 Dose: Not Given Levothyroxine Sodium (Synthroid) 175 mcg PO DAILY@0630 LAUREN Last Admin: 01/14/18 06:49 Dose: Not Given Ondansetron HCl (Zofran Inj) 4 mg IVP Q4 PRN PRN Reason: Nausea/Vomiting Last Admin: 01/13/18 02:11 Dose: 4 mg Pramipexole Dihydrochloride (Mirapex) 0.5 mg PO DAILY LAUREN Last Admin: 01/13/18 16:40 Dose: Not Given - Labs Labs: 01/14/18 04:27 01/14/18 04:27 PT 13.6 Seconds (9.8-13.1) H 01/12/18 13:15 INR 1.2 (0.9-1.2) 01/12/18 13:15 Assessment and Plan (1) Diabetes Status: Chronic (2) Hyperlipidemia Status: Chronic (3) Gastrointestinal bleeding Status: Acute (4) Hypertension Status: Chronic - Assessment and Plan (Free Text) Assessment: Assessment/Plan: 62 YO female with PMHx of HTN, DM, HLD, hypothyroidsm, colon CA (hx), SBO admitted for symptomatic anemia, with acute GI bleed. -VS stable -labs reviewed; anemia improved after 4 units of PRBC -transfuse 2 units of PRBC -lasix post transfusion -1x procrit -will transfer to tele -NPO except meds -GI on consult; Endoscopy today AM -Hem/Onc on consult; IV iron for acute blood loss anemia -cardiology on consult -echo EF 70% with right LV hypertrophy and mild/mod tricuspid regurg -Hypokalemia, will replace prn -plan as ordered Pt seen and examined with Dr. Quispe
[2018-01-14] MEDS ORDERED: Etomidate 20 mg/10ml Inj IV ONE (08:35)
[2018-01-14] MEDS ORDERED: Midazolam 2 MG/2 ML VIAL ONE (08:36)
[2018-01-14] MEDS ORDERED: Lactated Ringer's 500 ML IV ONE (08:36)
[2018-01-14] MEDS ORDERED: Propofol 10 mg/ml Inj (20 ML) ONE (08:36)
[2018-01-14] MEDS ORDERED: EPINEPHrine 1 mg/ml (1:1000) Inj ONE (08:50)
[2018-01-14] MEDS: Potassium CL 10 MEQ/50 ML 50 ML IVPB SCH ×4 (09:46→12:31)
[2018-01-14] MEDS ORDERED: Epoetin Alfa 20000 UNIT/ML Inj SC ONE (10:30)
--- NOTE | 2018-01-14 12:37 | CP.CCUPN ---
CCU Subjective - Physician Review Subjective (Free Text): Just returned from EGD procedure, findings reviewed. Remains off Plavix and NSAIDs. No s/sx of active bleeding now. Other vitals and I/O's reviewed. No fever spikes nor any low grade temps last 24H. HR 80s in sinus, BP range for systolic has been 110-120's today, SPO2 99% on NC. ROS: No other pertinent negs or positives on 10+ system review PMSFH: All other Nursing and physician documentation reviewed to date; no new pertinent info noted relevant to current medical problems. EXAM- HEENT: no icterus, no gaze preference NECK: No JVD, supple, carotids equal upstroke bilat/no bruits CHEST: decreased BS bases, no wheezes audible HEART: regular, distant, S1S2, no rubs or murmurs ABD: soft, no distention, no tympany, no palp tenderness, BS hypoactive EXT: no peripheral/ digital cyanosis, no calf tenderness or palpable cords, distal pulses intact and symmetrical. RUE PICC intact. NEURO: no focal motor deficits SKIN: no rashes, warm and dry. LABS: WBC= 3.1 HGB= 7.5 PLTs= 89K Cc=174 K= 3.2 YG=626 HCO3= 22 BUN/Cr=7/0.6 BS= 102 IMPRESSION / MAJOR PROBLEMS NOW: 1. Acute Anemia 2 UGI Bleed from Esophagitis / Gastritis 2. Thrombocytopenia 3. Hypokalemia 4. h/o Colon CA and Cirrhosis PLAN: 1. More PRBCs to raise HGB past 8.0; ongoing serial monitoring of Hgb / Plts. 2. K orders for supplementation placed already. 3. PPi therapy 4. Stable for Tele bed for further mgmt. and observation. No critical issues nor other interventions anticipated. CCU Objective - Vital Signs / Intake & Output Vital Signs (Last 4 hours): Vital Signs Temp Pulse Resp BP Pulse Ox 01/14/18 12:00 98.4 F 81 13 96 01/14/18 10:00 83 14 112/57 L 01/14/18 09:12 98.1 F 81 14 118/61 99 01/14/18 08:57 98.1 F 85 17 123/57 L 99 01/14/18 08:37 99 F 87 15 108/51 L 98 Intake and Output (Last 8hrs): Intake & Output 01/13/18 01/14/18 01/14/18 22:59 06:59 14:59 Intake Total 1505 250 Output Total 750 Balance 755 250 Weight 16 oz Intake: IV 290 250 Intake, Piggyback 60 Oral 120 Blood Product 975 Red Blood Cells Cpd As1 325 Lr Unit [id number] Red Blood Cells Cpd As1 650 Lr Unit [id number] Other 60 Red Blood Cells Cpd As1 10 Lr Unit [id number] Red Blood Cells Cpd As1 50 Lr Unit [id number] Output: Urine 750 Urine, Voided 750 Other: # Bowel Movements 1 - Medications Active Medications: Active Medications Generic Name Dose Route Start Last Admin Trade Name Freq PRN Reason Stop Dose Admin Acetaminophen 650 mg 01/13/18 10:03 01/14/18 10:55 Tylenol 325mg Tab PO 650 mg Q6 PRN Administration Headache Albuterol Sulfate 2.5 mg 01/12/18 18:45 Albuterol 0.083% Inhal Tracey (2.5 Mg/3 Ml) Ud INH RQ6 PRN Shortness of Breath Furosemide 40 mg 01/14/18 20:00 Lasix IVP 01/14/18 20:01 ONCE ONE Gabapentin 300 mg 01/12/18 18:45 01/14/18 09:51 Neurontin PO 300 mg BID LAUREN Administration Pantoprazole Sodium 40 mg/ 100 mls @ 20 mls/hr 01/12/18 14:30 01/14/18 02:00 Sodium Chloride IVPB 20 mls/hr Q5H LAUREN Administration 8 MG/HR Iron Sucrose 200 mg/ Sodium 110 mls @ 110 mls/hr 01/13/18 20:00 01/13/18 20: 37 Chloride IVPB 01/18/18 20:01 110 mls/hr DAILY LAUREN Administration Insulin Human Regular 0 units 01/12/18 22:00 01/14/18 12:33 Humulin R SC 2 u ACHS LAUREN Administration Protocol Levothyroxine Sodium 175 mcg 01/13/18 06:30 01/14/18 06:49 Synthroid PO Not Given DAILY@0630 LAUREN Ondansetron HCl 4 mg 01/13/18 00:54 01/13/18 02:11 Zofran Inj IVP 4 mg Q4 PRN Administration Nausea/Vomiting Pramipexole Dihydrochloride 0.5 mg 01/13/18 09:00 01/14/18 09:53 Mirapex PO Not Given DAILY LAUREN - Patient Studies Lab Studies: Lab Studies 01/14/18 01/14/18 01/14/18 Range/Units 11:40 05:12 04:27 WBC (4.8-10.8) K/uL RBC (3.80-5.20) Mil/uL Hgb (12.0-16.0) g/dL Hct (34.0-47.0) % MCV (81.0-99.0) fl MCH (27.0-31.0) pg MCHC (33.0-37.0) g/dL RDW (11.5-14.5) % Plt Count (130-400) K/uL MPV (7.2-11.7) fl Neut % (Auto) (50.0-75.0) % Lymph % (Auto) (20.0-40.0) % [place] % (Auto) (0.0-10.0) % Eos % (Auto) (0.0-4.0) % Baso % (Auto) (0.0-2.0) % Neut # (Auto) (1.8-7.0) K/uL Lymph # (Auto) (1.0-4.3) K/uL [place] # (Auto) (0.0-0.8) K/uL Eos # (Auto) (0.0-0.7) K/uL Baso # (Auto) (0.0-0.2) K/uL Sodium 138 (132-148) mmol/l Potassium 3.2 L (3.6-5.0) MMOL/L Chloride 109 H (98-107) mmol/L Carbon Dioxide 22 (22-30) mmol/L Anion Gap 10 (10-20) BUN 7 (7-17) mg/dl Creatinine 0.6 L (0.7-1.2) mg/dl Est GFR ( Amer) > 60 Est GFR (Non-Af Amer) > 60 POC Glucose (mg/dL) 185 H 101 (65-110) mg/dL Random Glucose 102 (65-105) mg/dL Calcium 7.8 L (8.4-10.2) mg/dL Total Bilirubin 2.1 H (0.2-1.3) mg/dl AST 33 (14-36) U/L ALT 23 (9-52) U/L Alkaline Phosphatase 69 (38-126) U/L Troponin I < 0.0120 (0.00-0.120) ng/mL Total Protein 5.9 L (6.3-8.2) G/DL Albumin 2.8 L (3.5-5.0) g/dL Globulin 3.1 (2.2-3.9) gm/dL Albumin/Globulin Ratio 0.9 L (1.0-2.1) Folate ng/mL Blood Type Antibody Screen Crossmatch BBK History Checked 01/14/18 01/14/18 01/13/18 Range/Units 04:27 01:00 20:35 WBC 3.1 L 3.4 L (4.8-10.8) K/uL RBC 2.70 L 2.73 L (3.80-5.20) Mil/uL Hgb 7.5 L 7.5 L (12.0-16.0) g/dL Hct 23.0 L 23.3 L (34.0-47.0) % MCV 85.1 85.4 (81.0-99.0) fl MCH 27.7 27.6 (27.0-31.0) pg MCHC 32.6 L 32.3 L (33.0-37.0) g/dL RDW 17.4 H 17.1 H (11.5-14.5) % Plt Count 89 L 93 L (130-400) K/uL MPV 10.2 (7.2-11.7) fl Neut % (Auto) 62.5 (50.0-75.0) % Lymph % (Auto) 24.3 (20.0-40.0) % [place] % (Auto) 6.9 (0.0-10.0) % Eos % (Auto) 4.8 H (0.0-4.0) % Baso % (Auto) 1.5 (0.0-2.0) % Neut # (Auto) 1.9 (1.8-7.0) K/uL Lymph # (Auto) 0.7 L (1.0-4.3) K/uL [place] # (Auto) 0.2 (0.0-0.8) K/uL Eos # (Auto) 0.1 (0.0-0.7) K/uL Baso # (Auto) 0.0 (0.0-0.2) K/uL Sodium (132-148) mmol/l Potassium (3.6-5.0) MMOL/L Chloride (98-107) mmol/L Carbon Dioxide (22-30) mmol/L Anion Gap (10-20) BUN (7-17) mg/dl Creatinine (0.7-1.2) mg/dl Est GFR ( Amer) Est GFR (Non-Af Amer) POC Glucose (mg/dL) 142 H (65-110) mg/dL Random Glucose (65-105) mg/dL Calcium (8.4-10.2) mg/dL Total Bilirubin (0.2-1.3) mg/dl AST (14-36) U/L ALT (9-52) U/L Alkaline Phosphatase (38-126) U/L Troponin I (0.00-0.120) ng/mL Total Protein (6.3-8.2) G/DL Albumin (3.5-5.0) g/dL Globulin (2.2-3.9) gm/dL Albumin/Globulin Ratio (1.0-2.1) Folate ng/mL Blood Type Antibody Screen Crossmatch BBK History Checked 01/13/18 01/13/18 01/13/18 Range/Units 16:33 13:19 11:26 WBC (4.8-10.8) K/uL RBC (3.80-5.20) Mil/uL Hgb (12.0-16.0) g/dL Hct (34.0-47.0) % MCV (81.0-99.0) fl MCH (27.0-31.0) pg MCHC (33.0-37.0) g/dL RDW (11.5-14.5) % Plt Count (130-400) K/uL MPV (7.2-11.7) fl Neut % (Auto) (50.0-75.0) % Lymph % (Auto) (20.0-40.0) % [place] % (Auto) (0.0-10.0) % Eos % (Auto) (0.0-4.0) % Baso % (Auto) (0.0-2.0) % Neut # (Auto) (1.8-7.0) K/uL Lymph # (Auto) (1.0-4.3) K/uL [place] # (Auto) (0.0-0.8) K/uL Eos # (Auto) (0.0-0.7) K/uL Baso # (Auto) (0.0-0.2) K/uL Sodium (132-148) mmol/l Potassium (3.6-5.0) MMOL/L Chloride (98-107) mmol/L Carbon Dioxide (22-30) mmol/L Anion Gap (10-20) BUN (7-17) mg/dl Creatinine (0.7-1.2) mg/dl Est GFR ( Amer) Est GFR (Non-Af Amer) POC Glucose (mg/dL) 160 H 150 H (65-110) mg/dL Random Glucose (65-105) mg/dL Calcium (8.4-10.2) mg/dL Total Bilirubin (0.2-1.3) mg/dl AST (14-36) U/L ALT (9-52) U/L Alkaline Phosphatase (38-126) U/L Troponin I (0.00-0.120) ng/mL Total Protein (6.3-8.2) G/DL Albumin (3.5-5.0) g/dL Globulin (2.2-3.9) gm/dL Albumin/Globulin Ratio (1.0-2.1) Folate > 20.0 ng/mL Blood Type Antibody Screen Crossmatch BBK History Checked 01/12/18 Range/Units 12:20 WBC (4.8-10.8) K/uL RBC (3.80-5.20) Mil/uL Hgb (12.0-16.0) g/dL Hct (34.0-47.0) % MCV (81.0-99.0) fl MCH (27.0-31.0) pg MCHC (33.0-37.0) g/dL RDW (11.5-14.5) % Plt Count (130-400) K/uL MPV (7.2-11.7) fl Neut % (Auto) (50.0-75.0) % Lymph % (Auto) (20.0-40.0) % [place] % (Auto) (0.0-10.0) % Eos % (Auto) (0.0-4.0) % Baso % (Auto) (0.0-2.0) % Neut # (Auto) (1.8-7.0) K/uL Lymph # (Auto) (1.0-4.3) K/uL [place] # (Auto) (0.0-0.8) K/uL Eos # (Auto) (0.0-0.7) K/uL Baso # (Auto) (0.0-0.2) K/uL Sodium (132-148) mmol/l Potassium (3.6-5.0) MMOL/L Chloride (98-107) mmol/L Carbon Dioxide (22-30) mmol/L Anion Gap (10-20) BUN (7-17) mg/dl Creatinine (0.7-1.2) mg/dl Est GFR ( Amer) Est GFR (Non-Af Amer) POC Glucose (mg/dL) (65-110) mg/dL Random Glucose (65-105) mg/dL Calcium (8.4-10.2) mg/dL Total Bilirubin (0.2-1.3) mg/dl AST (14-36) U/L ALT (9-52) U/L Alkaline Phosphatase (38-126) U/L Troponin I (0.00-0.120) ng/mL Total Protein (6.3-8.2) G/DL Albumin (3.5-5.0) g/dL Globulin (2.2-3.9) gm/dL Albumin/Globulin Ratio (1.0-2.1) Folate ng/mL Blood Type A POSITIVE Antibody Screen Negative Crossmatch See Detail BBK History Checked Patient has bt Laboratory Results - last 24 hr 01/12/18 01/13/18 01/13/18 12:20 11:26 13:19 WBC RBC Hgb Hct MCV MCH MCHC RDW Plt Count MPV Neut % (Auto) Lymph % (Auto) [place] % (Auto) Eos % (Auto) Baso % (Auto) Neut # (Auto) Lymph # (Auto) [place] # (Auto) Eos # (Auto) Baso # (Auto) Sodium Potassium Chloride Carbon Dioxide Anion Gap BUN Creatinine Est GFR ( Amer) Est GFR (Non-Af Amer) POC Glucose (mg/dL) 150 H Random Glucose Calcium Total Bilirubin AST ALT Alkaline Phosphatase Troponin I Total Protein Albumin Globulin Albumin/Globulin Ratio Folate > 20.0 Blood Type A POSITIVE Antibody Screen Negative Crossmatch See Detail BBK History Checked Patient has bt 01/13/18 01/13/18 01/14/18 16:33 20:35 01:00 WBC 3.4 L RBC 2.73 L Hgb 7.5 L Hct 23.3 L MCV 85.4 MCH 27.6 MCHC 32.3 L RDW 17.1 H Plt Count 93 L MPV Neut % (Auto) Lymph % (Auto) [place] % (Auto) Eos % (Auto) Baso % (Auto) Neut # (Auto) Lymph # (Auto) [place] # (Auto) Eos # (Auto) Baso # (Auto) Sodium Potassium Chloride Carbon Dioxide Anion Gap BUN Creatinine Est GFR ( Amer) Est GFR (Non-Af Amer) POC Glucose (mg/dL) 160 H 142 H Random Glucose Calcium Total Bilirubin AST ALT Alkaline Phosphatase Troponin I Total Protein Albumin Globulin Albumin/Globulin Ratio Folate Blood Type Antibody Screen Crossmatch BBK History Checked 01/14/18 01/14/18 01/14/18 04:27 04:27 05:12 WBC 3.1 L RBC 2.70 L Hgb 7.5 L Hct 23.0 L MCV 85.1 MCH 27.7 MCHC 32.6 L RDW 17.4 H Plt Count 89 L MPV 10.2 Neut % (Auto) 62.5 Lymph % (Auto) 24.3 [place] % (Auto) 6.9 Eos % (Auto) 4.8 H Baso % (Auto) 1.5 Neut # (Auto) 1.9 Lymph # (Auto) 0.7 L [place] # (Auto) 0.2 Eos # (Auto) 0.1 Baso # (Auto) 0.0 Sodium 138 Potassium 3.2 L Chloride 109 H Carbon Dioxide 22 Anion Gap 10 BUN 7 Creatinine 0.6 L Est GFR ( Amer) > 60 Est GFR (Non-Af Amer) > 60 POC Glucose (mg/dL) 101 Random Glucose 102 Calcium 7.8 L Total Bilirubin 2.1 H AST 33 ALT 23 Alkaline Phosphatase 69 Troponin I < 0.0120 Total Protein 5.9 L Albumin 2.8 L Globulin 3.1 Albumin/Globulin Ratio 0.9 L Folate Blood Type Antibody Screen Crossmatch BBK History Checked 01/14/18 11:40 WBC RBC Hgb Hct MCV MCH MCHC RDW Plt Count MPV Neut % (Auto) Lymph % (Auto) [place] % (Auto) Eos % (Auto) Baso % (Auto) Neut # (Auto) Lymph # (Auto) [place] # (Auto) Eos # (Auto) Baso # (Auto) Sodium Potassium Chloride Carbon Dioxide Anion Gap BUN Creatinine Est GFR ( Amer) Est GFR (Non-Af Amer) POC Glucose (mg/dL) 185 H Random Glucose Calcium Total Bilirubin AST ALT Alkaline Phosphatase Troponin I Total Protein Albumin Globulin Albumin/Globulin Ratio Folate Blood Type Antibody Screen Crossmatch BBK History Checked Fingerstick Blood Sugar Results: 185
--- NOTE | 2018-01-14 20:23 | CP.PCM.PN ---
Subjective - Date & Time of Evaluation Date of Evaluation: 01/14/18 Time of Evaluation: 18:30 - Subjective Subjective: pateint is s/p endoscopy. no current chest pain or dyspnea. Objective - Vital Signs/Intake and Output Vital Signs (last 24 hours): Temp Pulse Resp BP Pulse Ox 99 F 78 20 110/52 L 100 01/14/18 18:53 01/14/18 18:53 01/14/18 18:53 01/14/18 18:53 01/14/18 18:00 Intake and Output: 01/14/18 01/15/18 18:59 06:59 Intake Total 1245 420 Output Total 200 400 Balance 1045 20 - Medications Medications: Current Medications Acetaminophen (Tylenol 325mg Tab) 650 mg PO Q6 PRN PRN Reason: Headache Last Admin: 01/14/18 17:40 Dose: 650 mg Albuterol Sulfate (Albuterol 0.083% Inhal Tracey (2.5 Mg/3 Ml) Ud) 2.5 mg INH RQ6 PRN PRN Reason: Shortness of Breath Gabapentin (Neurontin) 300 mg PO BID [facility] Last Admin: 01/14/18 16:36 Dose: 300 mg Pantoprazole Sodium 40 mg/ (Sodium Chloride) 100 mls @ 20 mls/hr IVPB Q5H LAUREN PRN Reason: 8 MG/HR Last Admin: 01/14/18 17:45 Dose: 20 mls/hr Iron Sucrose 200 mg/ Sodium (Chloride) 110 mls @ 110 mls/hr IVPB DAILY [facility] Stop: 01/18/18 20:01 Last Admin: 01/14/18 13:29 Dose: 110 mls/hr Insulin Human Regular (Humulin R) 0 units SC ACHS LAUREN PRN Reason: Protocol Last Admin: 01/14/18 16:35 Dose: 2 u Levothyroxine Sodium (Synthroid) 175 mcg PO DAILY@0630 [facility] Last Admin: 01/14/18 06:49 Dose: Not Given Ondansetron HCl (Zofran Inj) 4 mg IVP Q4 PRN PRN Reason: Nausea/Vomiting Last Admin: 01/13/18 02:11 Dose: 4 mg Pramipexole Dihydrochloride (Mirapex) 0.5 mg PO DAILY [facility] Last Admin: 01/14/18 09:53 Dose: Not Given - Labs Labs: 01/14/18 04:27 01/14/18 04:27 PT 13.6 Seconds (9.8-13.1) H 01/12/18 13:15 INR 1.2 (0.9-1.2) 01/12/18 13:15 - Constitutional Appears: Non-toxic - Head Exam Head Exam: NORMAL INSPECTION - Eye Exam Eye Exam: Normal appearance - ENT Exam ENT Exam: Mucous Membranes Moist - Neck Exam Neck Exam: Normal Inspection - Respiratory Exam Respiratory Exam: NORMAL BREATHING PATTERN - Cardiovascular Exam Cardiovascular Exam: REGULAR RHYTHM - GI/Abdominal Exam GI & Abdominal Exam: Normal Bowel Sounds - Rectal Exam Rectal Exam: Deferred - Extremities Exam Extremities Exam: Pedal Edema - Back Exam Back Exam: NORMAL INSPECTION - Neurological Exam Neurological Exam: Alert - Psychiatric Exam Psychiatric exam: Normal Affect - Skin Skin Exam: Normal Color Assessment and Plan (1) Gastrointestinal bleeding Assessment & Plan: no inidcation for Plavix. recommend d/c. otherwise appears medically stable. Status: Acute
--- NOTE | 2018-01-14 21:22 | CP.PCM.PN ---
Subjective - Date & Time of Evaluation Date of Evaluation: 01/14/18 Time of Evaluation: 18:15 - Subjective Subjective: Feeling better s/p transfusion Objective - Vital Signs/Intake and Output Vital Signs (last 24 hours): Temp Pulse Resp BP Pulse Ox 99 F 78 20 103/49 L 100 01/14/18 18:53 01/14/18 18:53 01/14/18 18:53 01/14/18 21:11 01/14/18 18:00 Intake and Output: 01/14/18 01/15/18 18:59 06:59 Intake Total 1245 420 Output Total 200 400 Balance 1045 20 - Medications Medications: Current Medications Acetaminophen (Tylenol 325mg Tab) 650 mg PO Q6 PRN PRN Reason: Headache Last Admin: 01/14/18 17:40 Dose: 650 mg Albuterol Sulfate (Albuterol 0.083% Inhal Tracey (2.5 Mg/3 Ml) Ud) 2.5 mg INH RQ6 PRN PRN Reason: Shortness of Breath Gabapentin (Neurontin) 300 mg PO BID [facility] Last Admin: 01/14/18 16:36 Dose: 300 mg Pantoprazole Sodium 40 mg/ (Sodium Chloride) 100 mls @ 20 mls/hr IVPB Q5H LAUREN PRN Reason: 8 MG/HR Last Admin: 01/14/18 17:45 Dose: 20 mls/hr Iron Sucrose 200 mg/ Sodium (Chloride) 110 mls @ 110 mls/hr IVPB DAILY [facility] Stop: 01/18/18 20:01 Last Admin: 01/14/18 13:29 Dose: 110 mls/hr Insulin Human Regular (Humulin R) 0 units SC ACHS LAUREN PRN Reason: Protocol Last Admin: 01/14/18 16:35 Dose: 2 u Levothyroxine Sodium (Synthroid) 175 mcg PO DAILY@0630 [facility] Last Admin: 01/14/18 06:49 Dose: Not Given Ondansetron HCl (Zofran Inj) 4 mg IVP Q4 PRN PRN Reason: Nausea/Vomiting Last Admin: 01/13/18 02:11 Dose: 4 mg Pramipexole Dihydrochloride (Mirapex) 0.5 mg PO DAILY [facility] Last Admin: 01/14/18 09:53 Dose: Not Given - Labs Labs: 01/14/18 04:27 01/14/18 04:27 PT 13.6 Seconds (9.8-13.1) H 01/12/18 13:15 INR 1.2 (0.9-1.2) 01/12/18 13:15 - Head Exam Head Exam: ATRAUMATIC - Eye Exam Eye Exam: Normal appearance - ENT Exam ENT Exam: Mucous Membranes Dry - Respiratory Exam Respiratory Exam: NORMAL BREATHING PATTERN - Cardiovascular Exam Cardiovascular Exam: +S1, +S2 - GI/Abdominal Exam GI & Abdominal Exam: Normal Bowel Sounds Assessment and Plan (1) Pancytopenia Assessment & Plan: secondary to cirrhosis, splenomegaly iron deficiency and UGI bleed PRBC transfusion and IV iron Status: Acute (2) Liver lesion Assessment & Plan: CEA erickson f/u AFP Status: Acute (3) History of colon cancer Assessment & Plan: s/p surgery and adjuvant chemotherapy Status: Acute
[2018-01-14] MEDS ORDERED: Oxycodone/Acetaminophen 5/325 mg Tab PO PRN (22:41)
[2018-01-15] MEDS: Pantoprazole 40 MG in Sodium Chloride 0.9% 100 ML IVPB SCH ×3 (03:00→10:55)
[2018-01-15 05:32] LABS: BASO % 1.1 % (0.0-2.0); EOS # 0.2 K/uL (0.0-0.7); EOS % 5.5 % (0.0-4.0); HEMOGLOBIN 9.4 g/dL (12.0-16.0); LYMPH # 0.8 K/uL (1.0-4.3); LYMPH % 22.3 % (20.0-40.0); MEAN CELL VOLUME 85.5 fl (81.0-99.0); MEAN CORPUSCULAR HEMOGLOBIN 27.9 pg (27.0-31.0); MEAN CORPUSCULAR HGB CONC 32.7 g/dL (33.0-37.0); MEAN PLATELET VOLUME 10.3 fl (7.2-11.7); MONO # 0.2 K/uL (0.0-0.8); MONO % 5.8 % (0.0-10.0); NEUT # 2.3 K/uL (1.8-7.0); NEUT % 65.3 % (50.0-75.0); NRBC % 0.2 % (0.0-0.0); RBC 3.35 Mil/uL (3.80-5.20); RED CELL DISTRIBUTION WIDTH 16.8 % (11.5-14.5); WHITE BLOOD COUNT 3.5 K/uL (4.8-10.8)
[2018-01-15 05:44] LABS: ALB/GLOB RATIO 0.9 (1.0-2.1); ALBUMIN 2.8 g/dL (3.5-5.0); ALT/SGPT 26 U/L (9-52); AST/SGOT 32 U/L (14-36); BLOOD UREA NITROGEN 8 mg/dl (7-17); CALCIUM 7.9 mg/dL (8.4-10.2); GFR AFRICAN-AMERICAN > 60; GFR NON-AFRICAN AMERICAN > 60
[2018-01-15] MEDS ORDERED: Potassium Chloride 20 mEq ER Tab PO ONE (08:27)
[2018-01-15] MEDS: Insulin Regular 100 units/ml SC SCH (08:48)
[2018-01-15] MEDS: Levothyroxine 175 MCG TAB PO SCH (09:37)
--- NOTE | 2018-01-15 11:41 | CP.PCM.DIS ---
Provider - Provider Date of Admission: 01/12/18 14:27 Attending physician: Corby Quispe MD Time Spent in preparation of Discharge (in minutes): 20 Diagnosis - Discharge Diagnosis (1) Diabetes Status: Chronic (2) Hyperlipidemia Status: Chronic (3) Gastrointestinal bleeding Status: Resolved (4) Hypertension Status: Chronic (5) Pancytopenia Status: Chronic Hospital Course - Lab Results Lab Results: Micro Results 01/13/18 11:05 Nose MRSA Culture (Admit) - Final MRSA NOT DETECTED Most Recent Lab Values WBC 3.5 K/uL (4.8-10.8) L 01/15/18 04:35 RBC 3.35 Mil/uL (3.80-5.20) L 01/15/18 04:35 Hgb 9.4 g/dL (12.0-16.0) L 01/15/18 04:35 Hct 28.7 % (34.0-47.0) L 01/15/18 04:35 MCV 85.5 fl (81.0-99.0) 01/15/18 04:35 MCH 27.9 pg (27.0-31.0) 01/15/18 04:35 MCHC 32.7 g/dL (33.0-37.0) L 01/15/18 04:35 RDW 16.8 % (11.5-14.5) H 01/15/18 04:35 Plt Count 92 K/uL (130-400) L 01/15/18 04:35 MPV 10.3 fl (7.2-11.7) 01/15/18 04:35 Neut % (Auto) 65.3 % (50.0-75.0) 01/15/18 04:35 Lymph % (Auto) 22.3 % (20.0-40.0) 01/15/18 04:35 [place] % (Auto) 5.8 % (0.0-10.0) 01/15/18 04:35 Eos % (Auto) 5.5 % (0.0-4.0) H 01/15/18 04:35 Baso % (Auto) 1.1 % (0.0-2.0) 01/15/18 04:35 Neut # (Auto) 2.3 K/uL (1.8-7.0) 01/15/18 04:35 Lymph # (Auto) 0.8 K/uL (1.0-4.3) L 01/15/18 04:35 Mitchell # (Auto) 0.2 K/uL (0.0-0.8) 01/15/18 04:35 Eos # (Auto) 0.2 K/uL (0.0-0.7) 01/15/18 04:35 Baso # (Auto) 0.0 K/uL (0.0-0.2) 01/15/18 04:35 Retic Count 4.2 % (0.5-1.5) H D 01/13/18 11:26 PT 13.6 Seconds (9.8-13.1) H 01/12/18 13:15 INR 1.2 (0.9-1.2) 01/12/18 13:15 Sodium 139 mmol/l (132-148) 01/15/18 04:35 Potassium 3.3 MMOL/L (3.6-5.0) L 01/15/18 04:35 Chloride 108 mmol/L (98-107) H 01/15/18 04:35 Carbon Dioxide 23 mmol/L (22-30) 01/15/18 04:35 Anion Gap 11 (10-20) 01/15/18 04:35 BUN 8 mg/dl (7-17) 01/15/18 04:35 Creatinine 0.6 mg/dl (0.7-1.2) L 01/15/18 04:35 Est GFR ( Amer) > 60 01/15/18 04:35 Est GFR (Non-Af Amer) > 60 01/15/18 04:35 POC Glucose (mg/dL) 224 mg/dL (65-110) H 01/15/18 11:03 Random Glucose 124 mg/dL (65-105) H 01/15/18 04:35 Calcium 7.9 mg/dL (8.4-10.2) L 01/15/18 04:35 Magnesium 1.7 MG/DL (1.6-2.3) 01/12/18 12:20 Ferritin 17.1 ng/Ml (11.1-264.0) 01/13/18 11:26 Total Bilirubin 1.8 mg/dl (0.2-1.3) H 01/15/18 04:35 AST 32 U/L (14-36) 01/15/18 04:35 ALT 26 U/L (9-52) 01/15/18 04:35 Alkaline Phosphatase 69 U/L (38-126) 01/15/18 04:35 Troponin I < 0.0120 ng/mL (0.00-0.120) 01/14/18 04:27 Total Protein 5.9 G/DL (6.3-8.2) L 01/15/18 04:35 Albumin 2.8 g/dL (3.5-5.0) L 01/15/18 04:35 Globulin 3.1 gm/dL (2.2-3.9) 01/15/18 04:35 Albumin/Globulin Ratio 0.9 (1.0-2.1) L 01/15/18 04:35 Lipase 68 U/L (23-300) 01/12/18 12:20 Carcinoembryonic Ag 1.0 ng/mL (0-3.0) 01/13/18 11:26 Vitamin B12 459 pg/mL (239-931) 01/13/18 11:26 Folate > 20.0 ng/mL 01/13/18 11:26 Stool Occult Blood Positive (NEGATIVE) H 01/12/18 18:41 Blood Type A POSITIVE 01/12/18 12:20 Antibody Screen Negative 01/12/18 12:20 Crossmatch See Detail 01/12/18 12:20 BBK History Checked Patient has bt 01/12/18 12:20 - Hospital Course Hospital Course: 62 YO female with PMHx of HTN, DM, HLD, hypothyroidsm, pancytopenia, colon CA ( hx), [facility]BO admitted for symptomatic anemia, with acute GI bleed. Pt was seen by hem/onc, cardiology, GI endoscopy was done and findings sig for non-bleeding erosive gastropathy and gastritis. S/p transfusion of 6 unit of PRBC, pt hemodynamically stable at this time with good PO intake. Pt cleared by consultants for discharge home. Will d/c patient home; follow up with PMD. Dr. Hillman in 1 week and follow up with GI Dr. Lopez and hem/onc Dr. Jay as outpatient. Discharge Exam - Head Exam Head Exam: ATRAUMATIC - Eye Exam Eye Exam: EOMI, Normal appearance - Respiratory Exam Respiratory Exam: Clear to PA & Lateral, NORMAL BREATHING PATTERN. absent: Wheezes - Cardiovascular Exam Cardiovascular Exam: REGULAR RHYTHM, +S1, +S2 - GI/Abdominal Exam GI & Abdominal Exam: Normal Bowel Sounds, Soft. absent: Tenderness - Neurological Exam Neurological exam: Alert, Oriented x3 - Psychiatric Exam Psychiatric exam: Normal Mood Discharge Plan - Discharge Medications Prescriptions: Famotidine [Heartburn Prevention] 40 mg PO DAILY 30 Days tablet Omeprazole 40 mg PO DAILY #30 capsule.dr - Follow Up Plan Condition: FAIR Disposition: HOME/ ROUTINE Patient education suggested?: Yes Instructions: Blood Transfusion , Gastrointestinal Bleeding (DC) Additional Instructions: Please follow up with PMD in 1 week Referrals: Sravan Hillman MD [Family Provider] - Ashkan Lopez MD [Staff Provider] -
[2018-01-15 12:21] VITALS: BP 110/67; PULSE 81; RESP 15; TEMP 98.6; O2SAT 99
== END 2018-01-15 13:38 | disposition home or self-care (01) | DRG 174 ==
LOC: H.ER 11:11 → H.ERHOLD 14:27 → H.ICU/CCU 01-13 09:20
PROVIDERS: ADMIT Family Medicine; ATTEND Family Medicine
PROC: 02HV33Z Insertion of Infusion Device into Superior Vena Cava, Percutaneous Approach (ICD-10-PCS; 2018-01-12)
PROC: B548ZZA Ultrasonography of Superior Vena Cava, Guidance (ICD-10-PCS; 2018-01-12)
PROC: 30233N1 Transfusion of Nonautologous Red Blood Cells into Peripheral Vein, Percutaneous Approach (ICD-10-PCS; 2018-01-12)
PROC: 0DB68ZX Excision of Stomach, Via Natural or Artificial Opening Endoscopic, Diagnostic (ICD-10-PCS; 2018-01-14)
PROC: 0DB38ZX Excision of Lower Esophagus, Via Natural or Artificial Opening Endoscopic, Diagnostic (ICD-10-PCS; principal; 2018-01-14 08:30)
DX: K29.01 Acute gastritis with bleeding (principal); D61.818 Other pancytopenia; D62 Acute posthemorrhagic anemia; K21.0 Gastro-esophageal reflux disease with esophagitis; E87.6 Hypokalemia; D69.59 Other secondary thrombocytopenia; K74.60 Unspecified cirrhosis of liver; I07.1 Rheumatic tricuspid insufficiency; Z85.038 Personal history of other malignant neoplasm of large intestine; D63.8 Anemia in other chronic diseases classified elsewhere; E61.1 Iron deficiency; E03.9 Hypothyroidism, unspecified; E11.9 Type 2 diabetes mellitus without complications; E78.5 Hyperlipidemia, unspecified; I10 Essential (primary) hypertension; E78.00 Pure hypercholesterolemia, unspecified; J45.909 Unspecified asthma, uncomplicated; Z92.21 Personal history of antineoplastic chemotherapy; F41.9 Anxiety disorder, unspecified; M19.90 Unspecified osteoarthritis, unspecified site; Z90.49 Acquired absence of other specified parts of digestive tract; Z87.11 Personal history of peptic ulcer disease; Z86.73 Personal history of transient ischemic attack (TIA), and cerebral infarction without residual deficits; Z79.02 Long term (current) use of antithrombotics/antiplatelets; Z79.4 Long term (current) use of insulin

== ENCOUNTER 2018-02-09 16:56 | Inpatient (IN) | payer OTHER ==
[2018-02-09 16:57] VITALS: BMI 37.2
[2018-02-09] MEDS ORDERED: Sodium Chloride 0.9% 500 ML IV STA (17:21)
[2018-02-09] MEDS ORDERED: Albuterol-Ipratrop 3 mg / 0.5 (3 ml) UD INH STA (17:21)
[2018-02-09] MEDS ORDERED: Albuterol-Ipratrop 3 mg / 0.5 (3 ml) UD IH STA (17:21)
--- NOTE | 2018-02-09 17:26 | ED PDOC ---
HPI: SOB/CHF/COPD Time Seen by Provider: 02/09/18 17:07 Chief Complaint (Nursing): Shortness Of Breath Chief Complaint (Provider): Dyspnea History Per: Patient History/Exam Limitations: no limitations Onset/Duration Of Symptoms: Days (yesterday) Current Symptoms Are (Timing): Still Present Additional Complaint(s): Pt. with dyspnea and weakness. Body aches all over. Pt. with cough. No runny nose or congestion. No nausea, vomit, diarrhea. No headaches or dizziness. No abd pain. PCP Dr. Monk. No leg pain or long distance travel. No hormone tx. Past Medical History Reviewed: Nursing Documentation, Vital Signs Vital Signs: Last Vital Signs Temp 98.9 F 02/09/18 16:59 Pulse 95 H 02/09/18 16:59 Resp 20 02/09/18 16:59 BP 122/55 L 02/09/18 16:59 Pulse Ox 100 02/09/18 17:28 - Medical History PMH: Anemia, Anxiety, Arthritis, Asthma, COPD, Depression, Diabetes, HTN, Hypercholesterolemia, Hyperlipidemia, Peripheral Edema Denies: Bronchitis, Hepatitis, HIV, Hyperthyroidism, Hypothyroidism, Chronic Kidney Disease, Seizures, Sexually Transmitted Disease - Surgical History Surgical History: Appendectomy, Cholecystectomy, Hernia Repair Denies: Pacemaker - Family History Family History: States: Unknown Family Hx, Hypertension - Immunization History Hx Tetanus Toxoid Vaccination: No Hx Influenza Vaccination: Yes Hx Pneumococcal Vaccination: No - Home Medications Home Medications: Ambulatory Orders Medication Instructions Recorded Albuterol Sulfate [Ventolin Hfa] 2 puff IH Q6 PRN 01/12/18 Ascorbic Acid [Vitamin C 500 mg 500 mg PO DAILY 01/12/18 Tab] Atorvastatin [Lipitor] 20 mg PO DAILY 01/12/18 Cyanocobalamin [Vitamin B12 1000 1,000 mcg PO DAILY 01/12/18 mcg Tab] Docusate Sodium [Camacho' 100 mg PO BID 01/12/18 Laxative] Ferrous Sulfate [Feosol] 325 mg PO TID 01/12/18 Gabapentin [Neurontin] 300 mg PO Q8 01/12/18 Insulin Aspart Prot/Insuln Asp 15 unit SC BRK 01/12/18 [Novolog Mix 70-30 Vial] Insulin Glargine,Hum.rec.anlog 34 unit SC BID 01/12/18 [Basaglar Kwikpen U-100] Levothyroxine [Synthroid] 175 mcg PO DAILY 01/12/18 Lisinopril [Zestril] 20 mg PO DAILY 01/12/18 Magnesium Oxide [Mag-Ox] 400 mg PO DAILY 01/12/18 Mirtazapine [Remeron] 30 mg PO HS 01/12/18 Nitroglycerin [Nitrostat] 0.4 mg SL Q5MIN PRN 01/12/18 Pramipexole [Mirapex] 0.5 mg PO HS 01/12/18 Ranitidine HCl [Zantac] 150 mg PO BID 01/12/18 Zolpidem [Ambien] 5 mg PO HS 01/12/18 Acetaminophen [Tylenol 325mg tab] 650 mg PO Q6 PRN tab 01/15/18 Famotidine [Heartburn Prevention] 40 mg PO DAILY 30 Days tablet 01/15/18 Insulin Human Regular [HumuLIN R] 0 units SC ACHS ml 01/15/18 Levothyroxine [Synthroid] 175 mcg PO DAILY@0630 tab 01/15/18 Omeprazole 40 mg PO DAILY #30 capsule. 01/15/18 - Allergies Allergies/Adverse Reactions: Allergies Allergy/AdvReac Type Severity Reaction Status Date / Time No Known Allergies Allergy Verified 01/12/18 11:30 Review of Systems ROS Statement: Except As Marked, All Systems Reviewed And Found Negative Constitutional: Positive for: Weakness Cardiovascular: Positive for: Chest Pain Respiratory: Positive for: Cough, Shortness of Breath Musculoskeletal: Positive for: Other (body aches) Neurological: Positive for: Weakness. Negative for: Numbness, Incoordination, Seizures, Headache Physical Exam - Reviewed Nursing Documentation Reviewed: Yes Vital Signs Reviewed: Yes - Physical Exam Appears: Positive for: Uncomfortable Head Exam: Positive for: ATRAUMATIC, NORMAL INSPECTION, NORMOCEPHALIC Skin: Positive for: Normal Color, Warm, DRY Eye Exam: Positive for: EOMI, Normal appearance, PERRL ENT: Positive for: Normal ENT Inspection Neck: Positive for: Normal, Painless ROM, Supple Cardiovascular/Chest: Positive for: Regular Rate, Rhythm Respiratory: Positive for: Decreased Breath Sounds, Wheezing (b/l mild) Gastrointestinal/Abdominal: Positive for: Normal Exam, Soft. Negative for: Tenderness Back: Positive for: Normal Inspection. Negative for: L CVA Tenderness, R CVA Tenderness Extremity: Positive for: Normal ROM. Negative for: Tenderness, Pedal Edema Neurologic/Psych: Positive for: Alert, Oriented - Laboratory Results Result Diagrams: 02/09/18 17:42 02/09/18 17:45 Interpretation Of Abn Labs: 4.5 hg - ECG ECG: Positive for: Interpreted By Me, Viewed By Me ECG Rhythm: Positive for: Sinus Rhythm, Nonspecific Changes (similar to old) O2 Sat by Pulse Oximetry: 100 Pulse Ox Interpretation: Normal - Radiology X-Ray: Interpreted by Me, Viewed By Me X-Ray Interpretation: No Acute Disease - Progress ED Course And Treament: 1730: Stable. Continue tx. Feeling better. 1856: Stable. Alert. Will need transfusion. Spoke with Dr. Quispe. Will admit ICU. Spoke with Dr. Soliz. Will admit ICU. - Critical Care Total Time (In Min): 30 Documented Critical Care: Time excludes all time spent performint seperately billable procedures Disposition - Clinical Impression Clinical Impression: Anemia - Patient ED Disposition Is Patient to be Admitted: Yes Counseled Patient/Family Regarding: Studies Performed, Diagnosis - Disposition Disposition Time: 18:59 Condition: FAIR - Pt Status Changed To: Hospital Disposition Of: Inpatient - Admit Certification Admit to Inpatient:: After my assessment, the patient will require hospitalization for at least two midnights. This is because of the severity of symptoms shown, intensity of services needed, and/or the medical risk in this patient being treated as an outpatient. - POA Present On Arrival: None
[2018-02-09] MEDS ORDERED: Albuterol-Ipratrop 3 mg / 0.5 (3 ml) UD ONE (17:39)
[2018-02-09 18:06] LABS: BASO % 1.1 % (0.0-2.0); EOS # 0.1 K/uL (0.0-0.7); EOS % 3.5 % (0.0-4.0); LYMPH # 0.5 K/uL (1.0-4.3); LYMPH % 20.9 % (20.0-40.0); MEAN CELL VOLUME 86.5 fl (81.0-99.0); MEAN CORPUSCULAR HEMOGLOBIN 26.5 pg (27.0-31.0); MEAN CORPUSCULAR HGB CONC 30.7 g/dL (33.0-37.0); MEAN PLATELET VOLUME 11.1 fl (7.2-11.7); MONO # 0.1 K/uL (0.0-0.8); MONO % 5.6 % (0.0-10.0); NEUT # 1.7 K/uL (1.8-7.0); NEUT % 68.9 % (50.0-75.0); NRBC % 0.1 % (0.0-0.0); RBC 1.71 Mil/uL (3.80-5.20); RED CELL DISTRIBUTION WIDTH 18.4 % (11.5-14.5); WHITE BLOOD COUNT 2.5 K/uL (4.8-10.8)
[2018-02-09 18:22] LABS: B-TYPE NATRIURETIC PEPTIDE 520 pg/ml (0-900)
[2018-02-09 18:34] LABS: ALBUMIN 3.1 g/dL (3.5-5.0); ALT/SGPT 20 U/L (9-52); AST/SGOT 26 U/L (14-36); BLOOD UREA NITROGEN 17 mg/dl (7-17); CALCIUM 8.2 mg/dL (8.4-10.2); GFR NON-AFRICAN AMERICAN > 60
[2018-02-09 18:42] LABS: HEMOGLOBIN 4.5 g/dL (12.0-16.0)
[2018-02-09 18:55] LABS: INR 1.2
[2018-02-09 19:18] LABS: PARTIAL THROMBOPLASTIN TIME 32.2 Seconds (25.6-37.1)
[2018-02-09] MEDS ORDERED: Potassium Chloride 20 mEq ER Tab PO ONE (21:34)
[2018-02-09] MEDS ORDERED: Albuterol-Ipratrop 3 mg / 0.5 (3 ml) UD INH PRN (21:43)
[2018-02-10] MEDS ORDERED: Pneumococcal 23-Valent Vaccine IM ONE (06:00)
[2018-02-10] MEDS: Levothyroxine 175 MCG TAB PO SCH (06:13)
[2018-02-10 06:47] LABS: BASO % 0.1 % (0.0-2.0); EOS % 0.2 % (0.0-4.0); LYMPH # 0.4 K/uL (1.0-4.3); LYMPH % 14.4 % (20.0-40.0); MEAN CELL VOLUME 84.2 fl (81.0-99.0); MEAN CORPUSCULAR HGB CONC 32.1 g/dL (33.0-37.0); MEAN PLATELET VOLUME 10.3 fl (7.2-11.7); MONO # 0.1 K/uL (0.0-0.8); MONO % 2.3 % (0.0-10.0); NEUT # 2.3 K/uL (1.8-7.0); NRBC % 0.1 % (0.0-0.0); RBC 2.34 Mil/uL (3.80-5.20); RED CELL DISTRIBUTION WIDTH 18.9 % (11.5-14.5); WHITE BLOOD COUNT 2.7 K/uL (4.8-10.8)
[2018-02-10 06:49] LABS: HEMOGLOBIN 6.3 g/dL (12.0-16.0)
[2018-02-10 07:05] LABS: ALBUMIN 3.1 g/dL (3.5-5.0); ALT/SGPT 18 U/L (9-52); AST/SGOT 25 U/L (14-36); BLOOD UREA NITROGEN 15 mg/dl (7-17); CALCIUM 8.3 mg/dL (8.4-10.2); GFR NON-AFRICAN AMERICAN > 60
--- NOTE | 2018-02-10 07:07 | CP.PCM.CON ---
History of Present Illness - History of Present Illness History of Present Illness: This a 62 yo patiet with a pmhx of COPD, depression, Diabetes, HTN, dyslipidemia , who comes in with a symptomatic anemia and Hg of around 4.5. He came in with dyspnea and weakness and body aches as well as an associated cough. no other associated symptoms. PT transfused two units overnight with minimal improvement of Hg to 6.9, will transfuse 2 more units. Patient is hemodynamically stable, in no obvious distress. Last Vital Signs Temp 98.9 F 02/09/18 16:59 Pulse 95 H 02/09/18 16:59 Resp 20 02/09/18 16:59 BP 122/55 L 02/09/18 16:59 Pulse Ox 100 02/09/18 17:28 PMH: Anemia, Anxiety, Arthritis, Asthma, COPD, Depression, Diabetes, HTN, Hypercholesterolemia, Hyperlipidemia, Peripheral Edema Surgical History: Appendectomy, Cholecystectomy, Hernia Repair Family History: States: Unknown Family Hx, Hypertension Hx Tetanus Toxoid Vaccination: No Hx Influenza Vaccination: Yes Hx Pneumococcal Vaccination: No Home Medications: Ambulatory Orders Medication Instructions Recorded Albuterol Sulfate [Ventolin Hfa] 2 puff IH Q6 PRN 01/12/18 Ascorbic Acid [Vitamin C 500 mg 500 mg PO DAILY 01/12/18 Tab] Atorvastatin [Lipitor] 20 mg PO DAILY 01/12/18 Cyanocobalamin [Vitamin B12 1000 1,000 mcg PO DAILY 01/12/18 mcg Tab] Docusate Sodium [Camacho' 100 mg PO BID 01/12/18 Laxative] Ferrous Sulfate [Feosol] 325 mg PO TID 01/12/18 Gabapentin [Neurontin] 300 mg PO Q8 01/12/18 Insulin Aspart Prot/Insuln Asp 15 unit SC BRK 01/12/18 [Novolog Mix 70-30 Vial] Insulin Glargine,Hum.rec.anlog 34 unit SC BID 01/12/18 [Basaglar Kwikpen U-100] Levothyroxine [Synthroid] 175 mcg PO DAILY 01/12/18 Lisinopril [Zestril] 20 mg PO DAILY 01/12/18 Magnesium Oxide [Mag-Ox] 400 mg PO DAILY 01/12/18 Mirtazapine [Remeron] 30 mg PO HS 01/12/18 Nitroglycerin [Nitrostat] 0.4 mg SL Q5MIN PRN 01/12/18 Pramipexole [Mirapex] 0.5 mg PO HS 01/12/18 Ranitidine HCl [Zantac] 150 mg PO BID 01/12/18 Zolpidem [Ambien] 5 mg PO HS 01/12/18 Acetaminophen [Tylenol 325mg tab] 650 mg PO Q6 PRN tab 01/15/18 Famotidine [Heartburn Prevention] 40 mg PO DAILY 30 Days tablet 01/15/18 Insulin Human Regular [HumuLIN R] 0 units SC ACHS ml 01/15/18 Levothyroxine [Synthroid] 175 mcg PO DAILY@0630 tab 01/15/18 Omeprazole 40 mg PO DAILY #30 capsule. 01/15/18 Allergies/Adverse Reactions: Allergies Allergy/AdvReac Type Severity Reaction Status Date / Time No Known Allergies Allergy Verified 01/12/18 11:30 Review of Systems - Constitutional Constitutional: Lethargy - EENT Eyes: absent: As Per HPI, Blind Spots, Blurred Vision, Change in Vision, Decreased Night Vision, Diplopia, Discharge, Dry Eye, Exophthalmos, Floaters, Irritation, Itchy Eyes, Loss of Peripheral Vision, Pain, Photophobia, Requires Corrective Lenses, Sees Flashes, Spots in Vision, Tunnel Vision, Other Visual Disturbances, Loss of Vision, Other Ears: absent: As Per HPI, Decreased Hearing, Ear Discharge, Ear Pain, Tinnitus, Abnormal Hearing, Disequilibrium, Dizziness, Other Nose/Mouth/Throat: absent: As Per HPI, Epistaxis, Nasal Congestion, Nasal Discharge, Nasal Obstruction, Nasal Trauma, Nose Pain, Post Nasal Drip, Sinus Pain, Sinus Pressure, Bleeding Gums, Change in Voice, Dental Pain, Dry Mouth, Dysphagia, Halitosis, Hoarsness, Lip Swelling, Mouth Lesions, Mouth Pain, Odynophagia, Sore Throat, Throat Swelling, Tongue Swelling, Facial Pain, Neck Pain, Neck Mass, Other - Cardiovascular Cardiovascular: absent: As Per HPI, Acrocyanosis, Chest Pain, Chest Pain at Rest , Chest Pain with Activity, Claudication, Diaphoresis, Dyspnea, Dyspnea on Exertion, Edema, Irregular Heart Rhythm, Pain Radiating to Arm/Neck/Jaw, Leg Edema, Leg Ulcers, Lightheadedness, Orthopnea, Palpitations, Paroxysmal Nocturnal Dyspnea, Pedal Edema, Radiating Pain, Rapid Heart Rate, Slow Heart Rate, Syncope, Other - Respiratory Respiratory: Cough, Dyspnea - Gastrointestinal Gastrointestinal: absent: As Per HPI, Abdominal Pain, Belching, Bloating, Change in Bowel Habits, Change in Stool Character, Coffee Ground Emesis, Constipation, Cramping, Diarrhea, Dyspepsia, Dysphagia, Early Satiety, Excessive Flatus, Fecal Incontinence, Heartburn, Hematemesis, Hematochezia, Loose Stools, Melena, Nausea, Odynophagia, Temesmus, Vomiting, Other - Genitourinary Genitourinary: absent: As Per HPI, Change in Urinary Stream, Difficulty Urinating, Dysuria, Flank Pain, Hematuria, Pyuria, Nocturia, Urinary Incontinence, Urinary Frequency, Urinary Hesitance, Urinary Urgency, Voiding Freq/Small Amts, Freq UTI, Hx Renal/Bladder Calculi, Hx /Renal Surgery, Bladder Distension, Other - Musculoskeletal Musculoskeletal: Arthralgias - Integumentary Integumentary: absent: As Per HPI, Acne, Alopecia, Bleeding Lesions, Change in Hair, Change in Nails, Change in Pigmentation, Changing Lesions, Dry Skin, Erythema, Furuncle, Hirsutism, Lesions, New Lesions, Non-Healing Lesions, Photosensitivity, Pruritus, Rash, Skin Pain, Skin Ulcer, Sores, Striae, Swelling , Unusual Bruising, Wounds, Jaundice, Other - Neurological Neurological: absent: As Per HPI, Abnormal Gait, Abnormal Hearing, Abnormal Movements, Abnormal Speech, Behavioral Changes, Burning Sensations, Confusion, Convulsions, Disequilibrium, Dizziness, Numbness, Focal Weakness, Frequent Falls , Headaches, Lack of Coordination, Loss of Vision, Memory Loss, Paresthesias, Radicular Pain, Restless Legs, Sensory Deficit, Syncope, Tingling, Tremor, Vertigo, Weakness, Other Visual Disturbances, Other - Psychiatric Psychiatric: absent: As Per HPI, Abnormal Sleep Pattern, Anhedonia, Anxiety, Auditory Hallucinations, Behavioral Changes, Change in Appetite, Change in Libido, Confusion, Depression, Difficulty Concentrating, Hallucinations, Homicidal Ideation, Hopelessness, Irritability, Memory Loss, Mood Swings, Panic Attacks, Paranoia, Suicidal Ideation, Visual Hallucinations, Tactile Hallucinations, Other Past Patient History - Past Medical History & Family History Past Medical History?: Yes - Past Social History Smoking Status: Never Smoked - CARDIAC Hx Cardiac Disorders: Yes - PULMONARY Hx Respiratory Disorders: Yes - NEUROLOGICAL Hx Seizures: No - HEENT Hx HEENT Problems: Yes Hx Blind: Yes (left eye) Hx Epistaxis: Yes Hx Glaucoma: Yes (left eye) - RENAL Hx Chronic Kidney Disease: No - ENDOCRINE/METABOLIC Hx Endocrine Disorders: Yes - HEMATOLOGICAL/ONCOLOGICAL Hx Anemia: Yes Hx Human Immunodeficiency Virus (HIV): No - INTEGUMENTARY Hx Dermatological Problems: No - MUSCULOSKELETAL/RHEUMATOLOGICAL Hx Arthritis: Yes Hx Falls: Yes - GASTROINTESTINAL Hx Gastrointestinal Disorders: Yes Hx Bowel Surgery: Yes Hx Colostomy: Yes (reversed 2009) Hx Gastroesophageal Reflux: Yes Hx Nausea: Yes Hx Vomiting: Yes Other/Comment: colon ca - GENITOURINARY/GYNECOLOGICAL Hx Sexually Transmitted Disorders: No - PSYCHIATRIC Hx Anxiety: Yes Hx Depression: Yes Hx Substance Use: No - SURGICAL HISTORY Hx Appendectomy: Yes Hx Cholecystectomy: Yes - ANESTHESIA Hx Anesthesia: Yes Hx Anesthesia Reactions: No Hx Malignant Hyperthermia: No Meds Allergies/Adverse Reactions: Allergies Allergy/AdvReac Type Severity Reaction Status Date / Time No Known Allergies Allergy Verified 02/09/18 20:16 - Medications Medications: Current Medications Albuterol/Ipratropium (Duoneb 3 Mg/0.5 Mg (3 Ml) Ud) 3 ml INH RQ4 PRN PRN Reason: Shortness of Breath Atorvastatin Calcium (Lipitor) 20 mg PO HS [facility] Docusate Sodium (Colace) 100 mg PO BID [facility] Famotidine (Pepcid) 40 mg PO DAILY [facility] Ferrous Sulfate (Feosol) 325 mg PO TIDWM [facility] Gabapentin (Neurontin) 300 mg PO Q8 [facility] Last Admin: 02/10/18 01:08 Dose: 300 mg Insulin Detemir (Levemir) 34 units SC BID [facility] Insulin Lispro Protam/Lispro Human (Humalog Mix 75/25) 15 units SC BRK [facility] Levothyroxine Sodium (Synthroid) 175 mcg PO DAILY@0630 [facility] Last Admin: 02/10/18 06:13 Dose: 175 mcg Lisinopril (Zestril) 20 mg PO DAILY [facility] Magnesium Oxide (Mag-Ox) 400 mg PO DAILY [facility] Mirtazapine (Remeron) 30 mg PO HS [facility] Last Admin: 02/09/18 23:42 Dose: 30 mg Pramipexole Dihydrochloride (Mirapex) 0.5 mg PO HS [facility] Last Admin: 02/09/18 23:42 Dose: 0.5 mg Zolpidem Tartrate (Ambien) 5 mg PO [facility] Last Admin: 02/09/18 23:42 Dose: 5 mg Physical Exam - Head Exam Head Exam: ATRAUMATIC, NORMAL INSPECTION, NORMOCEPHALIC - Eye Exam Eye Exam: EOMI, Normal appearance, PERRL Pupil Exam: NORMAL ACCOMODATION - ENT Exam ENT Exam: Mucous Membranes Moist, Normal Exam - Neck Exam Neck exam: Positive for: Normal Inspection - Respiratory Exam Respiratory Exam: Clear to Auscultation Bilateral, NORMAL BREATHING PATTERN - Cardiovascular Exam Cardiovascular Exam: REGULAR RHYTHM - GI/Abdominal Exam GI & Abdominal Exam: Normal Bowel Sounds, Soft Results - Vital Signs Recent Vital Signs: Last Vital Signs Temp 98.3 F 02/10/18 04:06 Pulse 79 02/10/18 06:00 Resp 16 02/10/18 06:00 BP 110/62 02/10/18 06:00 Pulse Ox 100 02/10/18 06:00 - Labs Result Diagrams: 02/10/18 06:40 02/10/18 06:40 Labs: Laboratory Results - last 24 hr 02/09/18 02/09/18 02/09/18 17:42 17:45 17:45 WBC 2.5 L RBC 1.71 L Hgb 4.5 L* D Hct 14.8 L MCV 86.5 MCH 26.5 L MCHC 30.7 L RDW 18.4 H Plt Count 99 L MPV 11.1 Neut % (Auto) 68.9 Lymph % (Auto) 20.9 [place] % (Auto) 5.6 Eos % (Auto) 3.5 Baso % (Auto) 1.1 Neut # (Auto) 1.7 L Lymph # (Auto) 0.5 L [place] # (Auto) 0.1 Eos # (Auto) 0.1 Baso # (Auto) 0.0 PT INR APTT Sodium 141 Potassium 3.6 Chloride 111 H Carbon Dioxide 22 Anion Gap 12 BUN 17 Creatinine 0.6 L Est GFR ( Amer) > 60 Est GFR (Non-Af Amer) > 60 Random Glucose 242 H Calcium 8.2 L Total Bilirubin 0.6 AST 26 ALT 20 Alkaline Phosphatase 82 Troponin I < 0.0120 NT-Pro-B Natriuret Pep 520 Total Protein 6.1 L Albumin 3.1 L Globulin 3.0 Albumin/Globulin Ratio 1.0 Blood Type A POSITIVE Antibody Screen Negative Crossmatch See Detail BBK History Checked Patient has bt 02/09/18 02/10/18 17:45 06:40 WBC 2.7 L RBC 2.34 L Hgb 6.3 L* Hct 19.7 L MCV 84.2 D MCH 27.0 MCHC 32.1 L RDW 18.9 H Plt Count 89 L MPV 10.3 Neut % (Auto) 83.0 H Lymph % (Auto) 14.4 L [place] % (Auto) 2.3 Eos % (Auto) 0.2 Baso % (Auto) 0.1 Neut # (Auto) 2.3 Lymph # (Auto) 0.4 L [place] # (Auto) 0.1 Eos # (Auto) 0.0 Baso # (Auto) 0.0 PT 13.0 INR 1.2 APTT 32.2 Sodium Potassium Chloride Carbon Dioxide Anion Gap BUN Creatinine Est GFR ( Amer) Est GFR (Non-Af Amer) Random Glucose Calcium Total Bilirubin AST ALT Alkaline Phosphatase Troponin I NT-Pro-B Natriuret Pep Total Protein Albumin Globulin Albumin/Globulin Ratio Blood Type Antibody Screen Crossmatch BBK History Checked Assessment & Plan - Assessment and Plan (Free Text) Assessment: Pt is a 62 yo female with symptomatic anemia and found to have pancytopenia. Pt here for 2 units prbc, hemodynamically stable and tolerated 2 units prbc well. Plan: 1) Pancytopenia - Heme Onc consulrt - Plan is to transfuse 1-2 more units of PRBC s/p 2 units transfused last night Hg at 6.3 - no fever or signs of infection at this time 2) COPD- start Duonebs although no active wheezing - Date & Time Date: 02/10/18 Time: 07:33
[2018-02-10] MEDS: Magnesium Oxide 400 mg Tab UD PO SCH (08:17)
[2018-02-10] MEDS: Insulin Lispro Mix 75/25 100 units/ml (HumaLog) 10ml SC SCH (08:20)
--- NOTE | 2018-02-10 08:23 | RAD ---
Date of service: 02/09/2018 HISTORY: dyspnea COMPARISON: Portable chest 12/11/2017. FINDINGS: LUNGS: Diminished inspiratory volume noted. Cardiac silhouette appears stable with persistent or recurrent pulmonary vascular congestion. Bilateral basilar opacity reflects minimal bilateral pleural effusions. Underlying infiltrate difficult to exclude particularly at the left base and posterior the right as well. No pneumothorax bilaterally. PLEURA: As above. CARDIOVASCULAR: As above. OSSEOUS STRUCTURES: No significant abnormalities. VISUALIZED UPPER ABDOMEN: Normal. OTHER FINDINGS: None. IMPRESSION: Pattern suspicious for a recurrent CHF with underlying airspace disease difficult to exclude at the left greater than right lung bases. Small bilateral pleural effusions are identified.
--- NOTE | 2018-02-10 09:03 | CARD ---
APPROVED REPORT Date of service: 02/09/2018 EKG Measurement Heart [id number] <Conclusion> Sinus rhythm with premature supraventricular complexes ST & T wave abnormality, consider inferior ischemia ST & T wave abnormality, consider anterolateral ischemia Prolonged QT Abnormal ECG
[2018-02-10] MEDS: Insulin Detemir 100 Units/ml Inj SC SCH ×2 (10:03→17:01)
--- NOTE | 2018-02-10 10:40 | CP.PCM.HP ---
History of Present Illness - History of Present Illness History of Present Illness: 62 y/o M with A pMhx of HTN, DM, HLD, Colon Cancer, hypothyroidism, colon cancer and SBO presented to ED complaining of severe dyspnea, generalized body aches and weakness. Later found to be pancytopenic on labwork. Pt reports feeling better today, weakness and dyspnea have improved after blood transfusion. PMD: Dr. Quispe PMHx: colon cancer s/p resection and chemotherapy in 2005, chronic anemia requiring multiple blood transfusions and IV iron treatments, hypothyroidism, IDDM type 2, cirrhosis, HTN, asthma and anxiety SurgHx: colon resection, appendectomy, cholecystectomy, hernia repair FMHx: noncontributory SHx: denies tobacco, Etoh or drugs Allergies: NKDA Present on Admission - Present on Admission Any Indicators Present on Admission: No Review of Systems - Constitutional Constitutional: Weakness. absent: Chills, Fever - EENT Eyes: absent: Change in Vision Nose/Mouth/Throat: absent: Epistaxis, Nose Pain, Lip Swelling, Neck Pain, Neck Mass - Cardiovascular Cardiovascular: absent: Chest Pain, Palpitations - Respiratory Respiratory: Dyspnea. absent: Cough, Hemoptysis - Gastrointestinal Gastrointestinal: absent: Abdominal Pain, Hematochezia, Melena - Genitourinary Genitourinary: absent: Hematuria, Pyuria - Neurological Neurological: absent: Abnormal Hearing Past Patient History - Past Medical History & Family History Past Medical History?: Yes - Past Social History Smoking Status: Never Smoked - CARDIAC Hx Cardiac Disorders: Yes - PULMONARY Hx Respiratory Disorders: Yes - NEUROLOGICAL Hx Seizures: No - HEENT Hx HEENT Problems: Yes Hx Blind: Yes (left eye) Hx Epistaxis: Yes Hx Glaucoma: Yes (left eye) - RENAL Hx Chronic Kidney Disease: No - ENDOCRINE/METABOLIC Hx Endocrine Disorders: Yes - HEMATOLOGICAL/ONCOLOGICAL Hx Anemia: Yes Hx Human Immunodeficiency Virus (HIV): No - INTEGUMENTARY Hx Dermatological Problems: No - MUSCULOSKELETAL/RHEUMATOLOGICAL Hx Arthritis: Yes Hx Falls: Yes - GASTROINTESTINAL Hx Gastrointestinal Disorders: Yes Hx Bowel Surgery: Yes Hx Colostomy: Yes (reversed 2008) Hx Gastroesophageal Reflux: Yes Hx Nausea: Yes Hx Vomiting: Yes Other/Comment: colon ca - GENITOURINARY/GYNECOLOGICAL Hx Sexually Transmitted Disorders: No - PSYCHIATRIC Hx Anxiety: Yes Hx Depression: Yes Hx Substance Use: No - SURGICAL HISTORY Hx Appendectomy: Yes Hx Cholecystectomy: Yes - ANESTHESIA Hx Anesthesia: Yes Hx Anesthesia Reactions: No Hx Malignant Hyperthermia: No Meds Allergies/Adverse Reactions: Allergies Allergy/AdvReac Type Severity Reaction Status Date / Time No Known Allergies Allergy Verified 02/09/18 20:16 Physical Exam - Constitutional Appears: No Acute Distress - Head Exam Head Exam: ATRAUMATIC, NORMAL INSPECTION - Eye Exam Eye Exam: EOMI, Normal appearance - ENT Exam ENT Exam: Mucous Membranes Moist - Neck Exam Neck exam: Positive for: Full Rom. Negative for: Meningismus - Respiratory Exam Respiratory Exam: NORMAL BREATHING PATTERN. absent: Rhonchi, Wheezes - Cardiovascular Exam Cardiovascular Exam: +S1, +S2 - GI/Abdominal Exam GI & Abdominal Exam: Soft. absent: Distended, Tenderness - Neurological Exam Neurological exam: Alert, Oriented x3 Results - Vital Signs Recent Vital Signs: Last Vital Signs Temp 98.3 F 02/10/18 08:00 Pulse 84 02/10/18 10:00 Resp 16 02/10/18 10:00 BP 119/60 02/10/18 10:00 Pulse Ox 100 02/10/18 10:00 - Labs Result Diagrams: 02/10/18 06:40 02/10/18 06:40 Labs: Laboratory Results - last 24 hr 02/09/18 02/09/18 02/09/18 17:42 17:45 17:45 WBC 2.5 L RBC 1.71 L Hgb 4.5 L* D Hct 14.8 L MCV 86.5 MCH 26.5 L MCHC 30.7 L RDW 18.4 H Plt Count 99 L MPV 11.1 Neut % (Auto) 68.9 Lymph % (Auto) 20.9 [place] % (Auto) 5.6 Eos % (Auto) 3.5 Baso % (Auto) 1.1 Neut # (Auto) 1.7 L Lymph # (Auto) 0.5 L [place] # (Auto) 0.1 Eos # (Auto) 0.1 Baso # (Auto) 0.0 PT INR APTT Sodium 141 Potassium 3.6 Chloride 111 H Carbon Dioxide 22 Anion Gap 12 BUN 17 Creatinine 0.6 L Est GFR ( Amer) > 60 Est GFR (Non-Af Amer) > 60 POC Glucose (mg/dL) Random Glucose 242 H Calcium 8.2 L Total Bilirubin 0.6 AST 26 ALT 20 Alkaline Phosphatase 82 Troponin I < 0.0120 NT-Pro-B Natriuret Pep 520 Total Protein 6.1 L Albumin 3.1 L Globulin 3.0 Albumin/Globulin Ratio 1.0 Blood Type A POSITIVE Antibody Screen Negative Crossmatch See Detail BBK History Checked Patient has bt 02/09/18 02/10/18 02/10/18 17:45 06:40 06:40 WBC 2.7 L RBC 2.34 L Hgb 6.3 L* Hct 19.7 L MCV 84.2 D MCH 27.0 MCHC 32.1 L RDW 18.9 H Plt Count 89 L MPV 10.3 Neut % (Auto) 83.0 H Lymph % (Auto) 14.4 L [place] % (Auto) 2.3 Eos % (Auto) 0.2 Baso % (Auto) 0.1 Neut # (Auto) 2.3 Lymph # (Auto) 0.4 L [place] # (Auto) 0.1 Eos # (Auto) 0.0 Baso # (Auto) 0.0 PT 13.0 INR 1.2 APTT 32.2 Sodium 141 Potassium 4.5 Chloride 112 H Carbon Dioxide 21 L Anion Gap 13 BUN 15 Creatinine 0.5 L Est GFR ( Amer) > 60 Est GFR (Non-Af Amer) > 60 POC Glucose (mg/dL) Random Glucose 289 H Calcium 8.3 L Total Bilirubin 3.1 H AST 25 ALT 18 Alkaline Phosphatase 80 Troponin I NT-Pro-B Natriuret Pep Total Protein 6.3 Albumin 3.1 L Globulin 3.2 Albumin/Globulin Ratio 1.0 Blood Type Antibody Screen Crossmatch BBK History Checked 02/10/18 08:14 WBC RBC Hgb Hct MCV MCH MCHC RDW Plt Count MPV Neut % (Auto) Lymph % (Auto) [place] % (Auto) Eos % (Auto) Baso % (Auto) Neut # (Auto) Lymph # (Auto) [place] # (Auto) Eos # (Auto) Baso # (Auto) PT INR APTT Sodium Potassium Chloride Carbon Dioxide Anion Gap BUN Creatinine Est GFR ( Amer) Est GFR (Non-Af Amer) POC Glucose (mg/dL) 264 H Random Glucose Calcium Total Bilirubin AST ALT Alkaline Phosphatase Troponin I NT-Pro-B Natriuret Pep Total Protein Albumin Globulin Albumin/Globulin Ratio Blood Type Antibody Screen Crossmatch BBK History Checked Assessment & Plan - Assessment and Plan (Free Text) Assessment: 62 y/o M with a PMhx of HTN, DM, HLD, Colon Cancer, hypothyroidism, colon cancer and SBO admitted for evaluation and mangement of pancytopenia. S/P 2 PRBC 's tranfusion overnight. --Hematology on board, Dr Cheung. --GI on borad, Dr Lopez. --As per GI, 2 more PRBC's to be transfused. --Home medications ordered. --CXR with pattern of acute CHF, Lasix PO 20mg daily. --Duoneb PRN for dyspnea --Continue with management as ordered. - Date & Time Date: 02/10/18 Time: 09:40
[2018-02-10] MEDS ORDERED: Chlorhexidine Gluconate 1 APPL/PKT TP ONE (11:09)
[2018-02-10] MEDS ORDERED: Lidocaine 1% 5ml Abboject IV ONE (11:35)
--- NOTE | 2018-02-10 11:50 | CP.PCM.CON ---
<Elda Miles - Last Filed: 02/10/18 12:17> History of Present Illness - History of Present Illness History of Present Illness: GI consult note for Dr. Lopez Consulted for: acute severe anemia, history of GI bleed, history of cirrhosis Patient is a 62F with PMH including gastritis and bleeding erosions, severe anemia, cirrhosis, DM, COPD, hemorrhoids and gastric varices seen on colonoscopy in 11/2016, colon cancer in 2004 treated by colectomy and anastamosis of the ileum to the colon and chemotherapy, who presented to the ED with complaints of generalized body aches, chest pain, and cough and was found to have a hemoglobin of 4.5 on admission. She was admitted to the ICU and received 2 units of PRBC and her hgb increased to 6.3. Patient was recently admitted in this past December and November for GI bleed and severe anemia, which was determined to be of gastric origin based on erosive gastritis on EGD. Patient was given blood, stabilized, and sent home on omeprazole and pepcid. Patient states that she has been taking the pepcid and not the omeprazole d/t insurance issues. Patient states that she has had no vomiting but complains of nausea-- for which she is taking pepto bismol--dark stools, and chronic abdominal pain after her surgery for infected hernia mesh, and a few drops of blood in her stool. Last BM was today in the ICU and was loose dark brown/green color. Patient also complains of dysuria and increased urinary frequency, leg pain with cramping when she attempts to walk. PMH: DM, COPD, HTN, HLD, anemia, hypothyroidism, peripheral edema, cirrhosis, erosive gastritis, colon cancer, rectal varices, hemorrhoids, anxiety, depression, peripheral edema PSH: colectomy, cholecystectomy, appy, abdominal hernia repair with mesh, removal of infected mesh ALL: NKDA Review of Systems - Review of Systems All systems: reviewed and no additional remarkable complaints except (as per HPI ) Past Patient History - Past Medical History & Family History Past Medical History?: Yes - Past Social History Smoking Status: Never Smoked - CARDIAC Hx Cardiac Disorders: Yes - PULMONARY Hx Respiratory Disorders: Yes - NEUROLOGICAL Hx Seizures: No - HEENT Hx HEENT Problems: Yes Hx Blind: Yes (left eye) Hx Epistaxis: Yes Hx Glaucoma: Yes (left eye) - RENAL Hx Chronic Kidney Disease: No - ENDOCRINE/METABOLIC Hx Endocrine Disorders: Yes - HEMATOLOGICAL/ONCOLOGICAL Hx Anemia: Yes Hx Human Immunodeficiency Virus (HIV): No - INTEGUMENTARY Hx Dermatological Problems: No - MUSCULOSKELETAL/RHEUMATOLOGICAL Hx Arthritis: Yes Hx Falls: Yes - GASTROINTESTINAL Hx Gastrointestinal Disorders: Yes Hx Bowel Surgery: Yes Hx Colostomy: Yes (reversed 2009) Hx Gastroesophageal Reflux: Yes Hx Nausea: Yes Hx Vomiting: Yes Other/Comment: colon ca - GENITOURINARY/GYNECOLOGICAL Hx Sexually Transmitted Disorders: No - PSYCHIATRIC Hx Anxiety: Yes Hx Depression: Yes Hx Substance Use: No - SURGICAL HISTORY Hx Appendectomy: Yes Hx Cholecystectomy: Yes - ANESTHESIA Hx Anesthesia: Yes Hx Anesthesia Reactions: No Hx Malignant Hyperthermia: No Meds Allergies/Adverse Reactions: Allergies Allergy/AdvReac Type Severity Reaction Status Date / Time No Known Allergies Allergy Verified 02/09/18 20:16 - Medications Medications: Current Medications Albuterol/Ipratropium (Duoneb 3 Mg/0.5 Mg (3 Ml) Ud) 3 ml INH RQ4 PRN PRN Reason: Shortness of Breath Atorvastatin Calcium (Lipitor) 20 mg PO [facility] Docusate Sodium (Colace) 100 mg PO BID [facility] Last Admin: 02/10/18 08:19 Dose: 100 mg Famotidine (Pepcid) 40 mg PO DAILY [facility] Last Admin: 02/10/18 08:18 Dose: 40 mg Ferrous Sulfate (Feosol) 325 mg PO TIDWM [facility] Last Admin: 02/10/18 08:18 Dose: 325 mg Furosemide (Lasix) 20 mg PO DAILY [facility] Last Admin: 02/10/18 10:34 Dose: 20 mg Gabapentin (Neurontin) 300 mg PO Q8 [facility] Last Admin: 02/10/18 08:19 Dose: 300 mg Insulin Detemir (Levemir) 34 units SC BID [facility] Last Admin: 02/10/18 10:03 Dose: 34 u Insulin Lispro Protam/Lispro Human (Humalog Mix 75/25) 15 units SC BRK [facility] Last Admin: 02/10/18 08:20 Dose: 15 units Levothyroxine Sodium (Synthroid) 175 mcg PO DAILY@0630 [facility] Last Admin: 02/10/18 06:13 Dose: 175 mcg Lisinopril (Zestril) 20 mg PO DAILY [facility] Last Admin: 02/10/18 09:34 Dose: 20 mg Magnesium Oxide (Mag-Ox) 400 mg PO DAILY [facility] Last Admin: 02/10/18 08:17 Dose: 400 mg Mirtazapine (Remeron) 30 mg PO [facility] Last Admin: 02/09/18 23:42 Dose: 30 mg Pramipexole Dihydrochloride (Mirapex) 0.5 mg PO HS [facility] Last Admin: 02/09/18 23:42 Dose: 0.5 mg Zolpidem Tartrate (Ambien) 5 mg PO [facility] Last Admin: 02/09/18 23:42 Dose: 5 mg Physical Exam - Constitutional Appears: Well, Non-toxic, No Acute Distress - Head Exam Head Exam: ATRAUMATIC, NORMOCEPHALIC - Eye Exam Eye Exam: Normal appearance. absent: Conjunctival injection, Scleral icterus - ENT Exam ENT Exam: Mucous Membranes Moist, Normal Oropharynx - Respiratory Exam Respiratory Exam: Respiratory Distress. absent: Accessory Muscle Use, NORMAL BREATHING PATTERN - Cardiovascular Exam Cardiovascular Exam: RRR - GI/Abdominal Exam GI & Abdominal Exam: Soft, Tenderness (diffuse moderate tenderness to palpation) . absent: Distended, Guarding, Hernia, Rebound - Rectal Exam Rectal Exam: Hemorrhoids. absent: Bloody Stool Additional comments: decreased rectal tone. Loose dark green stool no gross blood - Extremities Exam Extremities exam: Positive for: pedal pulses present. Negative for: calf tenderness, pedal edema Additional comments: sensation and gross motor exam intact - Neurological Exam Neurological exam: Alert, Oriented x3 - Psychiatric Exam Psychiatric exam: Normal Affect, Normal Mood - Skin Skin Exam: Dry, Intact, Normal Color, Warm Results - Vital Signs Recent Vital Signs: Last Vital Signs Temp 98.3 F 02/10/18 08:00 Pulse 84 02/10/18 10:00 Resp 16 02/10/18 10:00 BP 119/60 02/10/18 10:34 Pulse Ox 100 02/10/18 10:00 - Labs Result Diagrams: 02/10/18 06:40 02/10/18 06:40 Labs: Laboratory Results - last 24 hr 02/09/18 02/09/18 02/09/18 17:42 17:45 17:45 WBC 2.5 L RBC 1.71 L Hgb 4.5 L* D Hct 14.8 L MCV 86.5 MCH 26.5 L MCHC 30.7 L RDW 18.4 H Plt Count 99 L MPV 11.1 Neut % (Auto) 68.9 Lymph % (Auto) 20.9 [place] % (Auto) 5.6 Eos % (Auto) 3.5 Baso % (Auto) 1.1 Neut # (Auto) 1.7 L Lymph # (Auto) 0.5 L [place] # (Auto) 0.1 Eos # (Auto) 0.1 Baso # (Auto) 0.0 PT INR APTT Sodium 141 Potassium 3.6 Chloride 111 H Carbon Dioxide 22 Anion Gap 12 BUN 17 Creatinine 0.6 L Est GFR ( Amer) > 60 Est GFR (Non-Af Amer) > 60 POC Glucose (mg/dL) Random Glucose 242 H Calcium 8.2 L Total Bilirubin 0.6 AST 26 ALT 20 Alkaline Phosphatase 82 Troponin I < 0.0120 NT-Pro-B Natriuret Pep 520 Total Protein 6.1 L Albumin 3.1 L Globulin 3.0 Albumin/Globulin Ratio 1.0 Blood Type A POSITIVE Antibody Screen Negative Crossmatch See Detail BBK History Checked Patient has bt 02/09/18 02/10/18 02/10/18 17:45 06:40 06:40 WBC 2.7 L RBC 2.34 L Hgb 6.3 L* Hct 19.7 L MCV 84.2 D MCH 27.0 MCHC 32.1 L RDW 18.9 H Plt Count 89 L MPV 10.3 Neut % (Auto) 83.0 H Lymph % (Auto) 14.4 L [place] % (Auto) 2.3 Eos % (Auto) 0.2 Baso % (Auto) 0.1 Neut # (Auto) 2.3 Lymph # (Auto) 0.4 L [place] # (Auto) 0.1 Eos # (Auto) 0.0 Baso # (Auto) 0.0 PT 13.0 INR 1.2 APTT 32.2 Sodium 141 Potassium 4.5 Chloride 112 H Carbon Dioxide 21 L Anion Gap 13 BUN 15 Creatinine 0.5 L Est GFR ( Amer) > 60 Est GFR (Non-Af Amer) > 60 POC Glucose (mg/dL) Random Glucose 289 H Calcium 8.3 L Total Bilirubin 3.1 H AST 25 ALT 18 Alkaline Phosphatase 80 Troponin I NT-Pro-B Natriuret Pep Total Protein 6.3 Albumin 3.1 L Globulin 3.2 Albumin/Globulin Ratio 1.0 Blood Type Antibody Screen Crossmatch BBK History Checked 02/10/18 02/10/18 08:14 11:21 WBC RBC Hgb Hct MCV MCH MCHC RDW Plt Count MPV Neut % (Auto) Lymph % (Auto) [place] % (Auto) Eos % (Auto) Baso % (Auto) Neut # (Auto) Lymph # (Auto) [place] # (Auto) Eos # (Auto) Baso # (Auto) PT INR APTT Sodium Potassium Chloride Carbon Dioxide Anion Gap BUN Creatinine Est GFR ( Amer) Est GFR (Non-Af Amer) POC Glucose (mg/dL) 264 H 291 H Random Glucose Calcium Total Bilirubin AST ALT Alkaline Phosphatase Troponin I NT-Pro-B Natriuret Pep Total Protein Albumin Globulin Albumin/Globulin Ratio Blood Type Antibody Screen Crossmatch BBK History Checked Assessment & Plan - Assessment and Plan (Free Text) Assessment: 62F with severe anemia, history of cirrhosis and recent GI bleed likely d/t erosive gastritis, Plan: Continue to trend CBC--patient currently responding appropriately to transfused blood and hemodynamically stable Transfuse and needed to keep Hgb above 8 Change from pepcid to IV protonix May consider an EGD and/or colonoscopy F/U stool occult blood F/U hepatitis panel Further recommendations to follow Discussed with Dr. Lopez, who agrees with above Elda Miles, PGY2 <Ashkan Lopez - Last Filed: 02/10/18 15:09> Meds - Medications Medications: Current Medications Albuterol/Ipratropium (Duoneb 3 Mg/0.5 Mg (3 Ml) Ud) 3 ml INH RQ4 PRN PRN Reason: Shortness of Breath Atorvastatin Calcium (Lipitor) 20 mg PO HS [facility] Docusate Sodium (Colace) 100 mg PO BID [facility] Last Admin: 02/10/18 08:19 Dose: 100 mg Ferrous Sulfate (Feosol) 325 mg PO TIDWM [facility] Last Admin: 02/10/18 12:25 Dose: 325 mg Furosemide (Lasix) 20 mg PO DAILY [facility] Last Admin: 02/10/18 10:34 Dose: 20 mg Gabapentin (Neurontin) 300 mg PO Q8 [facility] Last Admin: 02/10/18 08:19 Dose: 300 mg Iron Sucrose 200 mg/ Sodium (Chloride) 110 mls @ 110 mls/hr IVPB DAILY [facility] Stop: 02/15/18 12:31 Insulin Detemir (Levemir) 34 units SC BID [facility] Last Admin: 02/10/18 10:03 Dose: 34 u Insulin Lispro Protam/Lispro Human (Humalog Mix 75/25) 15 units SC BRK [facility] Last Admin: 02/10/18 08:20 Dose: 15 units Levothyroxine Sodium (Synthroid) 175 mcg PO DAILY@0630 [facility] Last Admin: 02/10/18 06:13 Dose: 175 mcg Lisinopril (Zestril) 20 mg PO DAILY [facility] Last Admin: 02/10/18 09:34 Dose: 20 mg Magnesium Oxide (Mag-Ox) 400 mg PO DAILY [facility] Last Admin: 02/10/18 08:17 Dose: 400 mg Mirtazapine (Remeron) 30 mg PO HS [facility] Last Admin: 02/09/18 23:42 Dose: 30 mg Pantoprazole Sodium (Protonix Inj) 40 mg IVP DAILY [facility] Last Admin: 02/10/18 14:30 Dose: 40 mg Pramipexole Dihydrochloride (Mirapex) 0.5 mg PO HS [facility] Last Admin: 02/09/18 23:42 Dose: 0.5 mg Zolpidem Tartrate (Ambien) 5 mg PO HS [facility] Last Admin: 02/09/18 23:42 Dose: 5 mg Results - Vital Signs Recent Vital Signs: Last Vital Signs Temp 98.2 F 02/10/18 13:42 Pulse 86 02/10/18 13:42 Resp 20 02/10/18 13:42 BP 116/53 L 02/10/18 13:42 Pulse Ox 95 02/10/18 12:06 - Labs Result Diagrams: 02/10/18 06:40 02/10/18 06:40 Labs: Laboratory Results - last 24 hr 02/09/18 02/09/18 02/09/18 17:42 17:45 17:45 WBC 2.5 L RBC 1.71 L Hgb 4.5 L* D Hct 14.8 L MCV 86.5 MCH 26.5 L MCHC 30.7 L RDW 18.4 H Plt Count 99 L MPV 11.1 Neut % (Auto) 68.9 Lymph % (Auto) 20.9 [place] % (Auto) 5.6 Eos % (Auto) 3.5 Baso % (Auto) 1.1 Neut # (Auto) 1.7 L Lymph # (Auto) 0.5 L [place] # (Auto) 0.1 Eos # (Auto) 0.1 Baso # (Auto) 0.0 PT INR APTT Sodium 141 Potassium 3.6 Chloride 111 H Carbon Dioxide 22 Anion Gap 12 BUN 17 Creatinine 0.6 L Est GFR ( Amer) > 60 Est GFR (Non-Af Amer) > 60 POC Glucose (mg/dL) Random Glucose 242 H Calcium 8.2 L Total Bilirubin 0.6 AST 26 ALT 20 Alkaline Phosphatase 82 Troponin I < 0.0120 NT-Pro-B Natriuret Pep 520 Total Protein 6.1 L Albumin 3.1 L Globulin 3.0 Albumin/Globulin Ratio 1.0 Blood Type A POSITIVE Antibody Screen Negative Crossmatch See Detail BBK History Checked Patient has bt 02/09/18 02/10/18 02/10/18 17:45 06:40 06:40 WBC 2.7 L RBC 2.34 L Hgb 6.3 L* Hct 19.7 L MCV 84.2 D MCH 27.0 MCHC 32.1 L RDW 18.9 H Plt Count 89 L MPV 10.3 Neut % (Auto) 83.0 H Lymph % (Auto) 14.4 L [place] % (Auto) 2.3 Eos % (Auto) 0.2 Baso % (Auto) 0.1 Neut # (Auto) 2.3 Lymph # (Auto) 0.4 L [place] # (Auto) 0.1 Eos # (Auto) 0.0 Baso # (Auto) 0.0 PT 13.0 INR 1.2 APTT 32.2 Sodium 141 Potassium 4.5 Chloride 112 H Carbon Dioxide 21 L Anion Gap 13 BUN 15 Creatinine 0.5 L Est GFR ( Amer) > 60 Est GFR (Non-Af Amer) > 60 POC Glucose (mg/dL) Random Glucose 289 H Calcium 8.3 L Total Bilirubin 3.1 H AST 25 ALT 18 Alkaline Phosphatase 80 Troponin I NT-Pro-B Natriuret Pep Total Protein 6.3 Albumin 3.1 L Globulin 3.2 Albumin/Globulin Ratio 1.0 Blood Type Antibody Screen Crossmatch BBK History Checked 02/10/18 02/10/18 08:14 11:21 WBC RBC Hgb Hct MCV MCH MCHC RDW Plt Count MPV Neut % (Auto) Lymph % (Auto) [place] % (Auto) Eos % (Auto) Baso % (Auto) Neut # (Auto) Lymph # (Auto) [place] # (Auto) Eos # (Auto) Baso # (Auto) PT INR APTT Sodium Potassium Chloride Carbon Dioxide Anion Gap BUN Creatinine Est GFR ( Amer) Est GFR (Non-Af Amer) POC Glucose (mg/dL) 264 H 291 H Random Glucose Calcium Total Bilirubin AST ALT Alkaline Phosphatase Troponin I NT-Pro-B Natriuret Pep Total Protein Albumin Globulin Albumin/Globulin Ratio Blood Type Antibody Screen Crossmatch BBK History Checked Assessment & Plan - Assessment and Plan (Free Text) Plan: Last admission showed significant gastric erosions. Will do upper endoscopy tomorrow.
--- NOTE | 2018-02-10 11:53 | PCM.SURG1 ---
Surgeon's Initial Post Op Note - Surgeon's Notes Surgeon: Julius Bundy MD Machine Operator Hop Picker: [email or web address] Type of Anesthesia: Local Pre-Operative Diagnosis: ANemia, poor venous access Operative Findings: US showed a patent right basilic vein Post-Operative Diagnosis: ANemia, poor venous access Operation Performed: Dual lumen picc placement right arm, 33 cm Specimen/Specimens Removed: none Estimated Blood Loss: EBL {In ML}: 2 Blood Products Given: N/A Drains Used: No Drains Post-Op Condition: Fair Date of Surgery/Procedure: 02/10/18 Time of Surgery/Procedure: 11:50
--- NOTE | 2018-02-10 12:24 | CP.PCM.CON ---
History of Present Illness - History of Present Illness History of Present Illness: 62 year old female with a history of DM, HTN, HL, hypothyroid, colon cancer s/p surgery and adjuvant chemotherapy in 2005, admitted with symptomatic anemia with hgb of 4.5. The patient is known to me from her prior hospitalization about 1 month ago. At the time she was GI bleeding and found to have iron deficiency anemia. She was treated with PRBC transfusion and IV iron. She notes she has been having dark black stools with hematochezia worsening in the last 1-2 weeks. She has pain in her muscles and extreme fatigue. She is s/p 2U PRBC and reports to feeling better. presenting with hematemesis/diarrhea, found to have severe anemia. The patient notes to progressive fatigue which worsening in the last few days. Past medical history: DM, HTN, HL, hypothyroid, colon cancer s/p surgery and adjuvant chemotherapy in 2005. Past surgical history: hemicolectomy, cholecystectomy, hernia repair Family history: Denies hematologic and oncologic problems Social history: Denies tobacco, alcohol, and illicit drug use. Allergies: NKA Review of systems: All remaining review of systems including HEENT, cardiovascular, respiratory, gastrointestinal, genitourinary, musculoskeletal, dermatologic, neurologic, and psychiatric are negative unless mentioned in the HPI. Past Patient History - Past Medical History & Family History Past Medical History?: Yes - Past Social History Smoking Status: Never Smoked - CARDIAC Hx Cardiac Disorders: Yes - PULMONARY Hx Respiratory Disorders: Yes - NEUROLOGICAL Hx Seizures: No - HEENT Hx HEENT Problems: Yes Hx Blind: Yes (left eye) Hx Epistaxis: Yes Hx Glaucoma: Yes (left eye) - RENAL Hx Chronic Kidney Disease: No - ENDOCRINE/METABOLIC Hx Endocrine Disorders: Yes - HEMATOLOGICAL/ONCOLOGICAL Hx Anemia: Yes Hx Human Immunodeficiency Virus (HIV): No - INTEGUMENTARY Hx Dermatological Problems: No - MUSCULOSKELETAL/RHEUMATOLOGICAL Hx Arthritis: Yes Hx Falls: Yes - GASTROINTESTINAL Hx Gastrointestinal Disorders: Yes Hx Bowel Surgery: Yes Hx Colostomy: Yes (reversed 2008) Hx Gastroesophageal Reflux: Yes Hx Nausea: Yes Hx Vomiting: Yes Other/Comment: colon ca - GENITOURINARY/GYNECOLOGICAL Hx Sexually Transmitted Disorders: No - PSYCHIATRIC Hx Anxiety: Yes Hx Depression: Yes Hx Substance Use: No - SURGICAL HISTORY Hx Appendectomy: Yes Hx Cholecystectomy: Yes - ANESTHESIA Hx Anesthesia: Yes Hx Anesthesia Reactions: No Hx Malignant Hyperthermia: No Meds Allergies/Adverse Reactions: Allergies Allergy/AdvReac Type Severity Reaction Status Date / Time No Known Allergies Allergy Verified 02/09/18 20:16 - Medications Medications: Current Medications Albuterol/Ipratropium (Duoneb 3 Mg/0.5 Mg (3 Ml) Ud) 3 ml INH RQ4 PRN PRN Reason: Shortness of Breath Atorvastatin Calcium (Lipitor) 20 mg PO HS [facility] Docusate Sodium (Colace) 100 mg PO BID [facility] Last Admin: 02/10/18 08:19 Dose: 100 mg Famotidine (Pepcid) 40 mg PO DAILY [facility] Last Admin: 02/10/18 08:18 Dose: 40 mg Ferrous Sulfate (Feosol) 325 mg PO TIDWM [facility] Last Admin: 02/10/18 08:18 Dose: 325 mg Furosemide (Lasix) 20 mg PO DAILY [facility] Last Admin: 02/10/18 10:34 Dose: 20 mg Gabapentin (Neurontin) 300 mg PO Q8 [facility] Last Admin: 02/10/18 08:19 Dose: 300 mg Insulin Detemir (Levemir) 34 units SC BID [facility] Last Admin: 02/10/18 10:03 Dose: 34 u Insulin Lispro Protam/Lispro Human (Humalog Mix 75/25) 15 units SC BRK [facility] Last Admin: 02/10/18 08:20 Dose: 15 units Levothyroxine Sodium (Synthroid) 175 mcg PO DAILY@0630 [facility] Last Admin: 02/10/18 06:13 Dose: 175 mcg Lisinopril (Zestril) 20 mg PO DAILY [facility] Last Admin: 02/10/18 09:34 Dose: 20 mg Magnesium Oxide (Mag-Ox) 400 mg PO DAILY [facility] Last Admin: 02/10/18 08:17 Dose: 400 mg Mirtazapine (Remeron) 30 mg PO [facility] Last Admin: 02/09/18 23:42 Dose: 30 mg Pramipexole Dihydrochloride (Mirapex) 0.5 mg PO [facility] Last Admin: 02/09/18 23:42 Dose: 0.5 mg Zolpidem Tartrate (Ambien) 5 mg PO [facility] Last Admin: 02/09/18 23:42 Dose: 5 mg Physical Exam - Head Exam Head Exam: ATRAUMATIC - Eye Exam Eye Exam: Normal appearance - ENT Exam ENT Exam: Mucous Membranes Dry - Respiratory Exam Respiratory Exam: NORMAL BREATHING PATTERN - Cardiovascular Exam Cardiovascular Exam: +S1, +S2 - GI/Abdominal Exam GI & Abdominal Exam: Normal Bowel Sounds - Extremities Exam Extremities exam: Positive for: normal inspection - Neurological Exam Neurological exam: Oriented x3 - Psychiatric Exam Psychiatric exam: Normal Affect, Normal Mood - Skin Skin Exam: Warm Results - Vital Signs Recent Vital Signs: Last Vital Signs Temp 98.6 F 02/10/18 12:06 Pulse 92 H 02/10/18 12:06 Resp 22 02/10/18 12:06 BP 144/76 02/10/18 12:06 Pulse Ox 95 02/10/18 12:06 - Labs Result Diagrams: 02/10/18 06:40 02/10/18 06:40 Labs: Laboratory Results - last 24 hr 02/09/18 02/09/18 02/09/18 17:42 17:45 17:45 WBC 2.5 L RBC 1.71 L Hgb 4.5 L* D Hct 14.8 L MCV 86.5 MCH 26.5 L MCHC 30.7 L RDW 18.4 H Plt Count 99 L MPV 11.1 Neut % (Auto) 68.9 Lymph % (Auto) 20.9 Hooker % (Auto) 5.6 Eos % (Auto) 3.5 Baso % (Auto) 1.1 Neut # (Auto) 1.7 L Lymph # (Auto) 0.5 L Hooker # (Auto) 0.1 Eos # (Auto) 0.1 Baso # (Auto) 0.0 PT INR APTT Sodium 141 Potassium 3.6 Chloride 111 H Carbon Dioxide 22 Anion Gap 12 BUN 17 Creatinine 0.6 L Est GFR ( Amer) > 60 Est GFR (Non-Af Amer) > 60 POC Glucose (mg/dL) Random Glucose 242 H Calcium 8.2 L Total Bilirubin 0.6 AST 26 ALT 20 Alkaline Phosphatase 82 Troponin I < 0.0120 NT-Pro-B Natriuret Pep 520 Total Protein 6.1 L Albumin 3.1 L Globulin 3.0 Albumin/Globulin Ratio 1.0 Blood Type A POSITIVE Antibody Screen Negative Crossmatch See Detail BBK History Checked Patient has bt 02/09/18 02/10/18 02/10/18 17:45 06:40 06:40 WBC 2.7 L RBC 2.34 L Hgb 6.3 L* Hct 19.7 L MCV 84.2 D MCH 27.0 MCHC 32.1 L RDW 18.9 H Plt Count 89 L MPV 10.3 Neut % (Auto) 83.0 H Lymph % (Auto) 14.4 L Hooker % (Auto) 2.3 Eos % (Auto) 0.2 Baso % (Auto) 0.1 Neut # (Auto) 2.3 Lymph # (Auto) 0.4 L Hooker # (Auto) 0.1 Eos # (Auto) 0.0 Baso # (Auto) 0.0 PT 13.0 INR 1.2 APTT 32.2 Sodium 141 Potassium 4.5 Chloride 112 H Carbon Dioxide 21 L Anion Gap 13 BUN 15 Creatinine 0.5 L Est GFR ( Amer) > 60 Est GFR (Non-Af Amer) > 60 POC Glucose (mg/dL) Random Glucose 289 H Calcium 8.3 L Total Bilirubin 3.1 H AST 25 ALT 18 Alkaline Phosphatase 80 Troponin I NT-Pro-B Natriuret Pep Total Protein 6.3 Albumin 3.1 L Globulin 3.2 Albumin/Globulin Ratio 1.0 Blood Type Antibody Screen Crossmatch BBK History Checked 02/10/18 02/10/18 08:14 11:21 WBC RBC Hgb Hct MCV MCH MCHC RDW Plt Count MPV Neut % (Auto) Lymph % (Auto) Hooker % (Auto) Eos % (Auto) Baso % (Auto) Neut # (Auto) Lymph # (Auto) Hooker # (Auto) Eos # (Auto) Baso # (Auto) PT INR APTT Sodium Potassium Chloride Carbon Dioxide Anion Gap BUN Creatinine Est GFR ( Amer) Est GFR (Non-Af Amer) POC Glucose (mg/dL) 264 H 291 H Random Glucose Calcium Total Bilirubin AST ALT Alkaline Phosphatase Troponin I NT-Pro-B Natriuret Pep Total Protein Albumin Globulin Albumin/Globulin Ratio Blood Type Antibody Screen Crossmatch BBK History Checked Assessment & Plan (1) Pancytopenia Assessment and Plan: GI bleeding iron deficiency anemia transfusion support will start IV iron GI evaluation splenomegaly noted; splenic sequestration Status: Chronic (2) Liver lesion Assessment and Plan: normal CEA outpatient PET CT scan will add AFP Thank you for this interesting consult. Status: Acute
--- NOTE | 2018-02-10 14:45 | VASCULAR ---
PROCEDURE: Date of procedure: 02/10/2018 Procedure: 1. Placement of a right arm PICC with ultrasound and fluoroscopic guidance, CPT 64827 2. PICC tip confirmation with spot radiograph and is in the superior vena cava Medications: 3CC 1 percent lidocaine Total Fluoro time: 2.4 seconds Radiation: 0.46 MGy EBL: 2 cc HISTORY: Infection requiring long-term IV antibiotics TECHNIQUE: Following informed consent and procedure time-out, the patient was placed supine on the interventional table and the right arm prepped and draped in the usual sterile fashion. Ultrasound showed a patent and compressible right basilic vein. After the skin was anesthetized with lidocaine, the basilic vein was accessed with micro micropuncture technique using ultrasound guidance. A guidewire was then advanced under fluoroscopic guidance into the superior vena cava. An image documenting ultrasound guidance for vascular access was permanently saved. The length of the double lumen 5-serbian PICC was trimmed to 33 centimeters and advanced through a peel-away sheath. The PICC was position with tip of PICC confirm a spot radiograph the superior vena cava. The PICC was secured to the patient's skin. The PICC was flushed. A biopatch and sterile dressing was applied. IMPRESSION: Placement of a double lumen 5-serbian PICC trimmed to 33 cm via right basilic vein. The tip of the PICC is confirmed with spot radiograph and is in the superior vena cava.
[2018-02-10 17:00] LABS: HEPATITIS B SURFACE AG Negative (NEGATIVE)
[2018-02-10 17:05] LABS: HEPATITIS A IGM NEGATIVE (NEGATIVE); HEPATITIS B CORE AB NEGATIVE (NEGATIVE)
[2018-02-10 17:17] LABS: HEPATITIS C ANTIBODY NEGATIVE (NEGATIVE)
[2018-02-10 20:50] LABS: HEMOGLOBIN 7.8 g/dL (12.0-16.0); MEAN CELL VOLUME 83.4 fl (81.0-99.0); MEAN CORPUSCULAR HEMOGLOBIN 27.5 pg (27.0-31.0); RBC 2.82 Mil/uL (3.80-5.20); RED CELL DISTRIBUTION WIDTH 18.4 % (11.5-14.5); WHITE BLOOD COUNT 4.7 K/uL (4.8-10.8)
[2018-02-11 05:49] LABS: BASO % 0.8 % (0.0-2.0); EOS # 0.1 K/uL (0.0-0.7); EOS % 2.6 % (0.0-4.0); HEMOGLOBIN 7.5 g/dL (12.0-16.0); LYMPH # 1.1 K/uL (1.0-4.3); LYMPH % 24.7 % (20.0-40.0); MEAN CELL VOLUME 83.6 fl (81.0-99.0); MEAN CORPUSCULAR HEMOGLOBIN 27.5 pg (27.0-31.0); MEAN CORPUSCULAR HGB CONC 32.9 g/dL (33.0-37.0); MEAN PLATELET VOLUME 10.6 fl (7.2-11.7); MONO # 0.2 K/uL (0.0-0.8); MONO % 4.8 % (0.0-10.0); NEUT # 3.1 K/uL (1.8-7.0); NEUT % 67.1 % (50.0-75.0); NRBC % 0.3 % (0.0-0.0); RBC 2.75 Mil/uL (3.80-5.20); RED CELL DISTRIBUTION WIDTH 18.3 % (11.5-14.5); WHITE BLOOD COUNT 4.6 K/uL (4.8-10.8)
[2018-02-11] MEDS: Levothyroxine 175 MCG TAB PO SCH (05:49)
[2018-02-11 06:22] LABS: FERRITIN 59.9 ng/Ml (11.1-264.0)
--- NOTE | 2018-02-11 06:26 | PN ---
Copied To: Damon Soliz MD Attending MD: Damon Soliz MD DATE: 02/10/2018 CRITICAL CARE PROGRESS NOTE. LOCATION: The patient is in ICU, bed 424. TIME SPENT: 35 minutes. The patient is seen and evaluated at the bedside. Past medical, surgical, and social history reviewed as noted in history and physical. Case was discussed in multidisciplinary ICU rounds this morning. SUBJECTIVE: A 62-year-old female, EtOH drinker with history significant for diabetes mellitus type 2, hypertension, liver cirrhosis secondary to questionable fatty liver, hypersplenism, pancytopenia, chronic anemia, requiring multiple transfusions, and IV iron treatments, admitted with generalized weakness and generalized body ache and shortness of breath, noted to have hemoglobin at 4.5, status post transfusion of two units of packed red blood cells this morning. Alert and awake, follows commands appropriately, feels better, less short of breath. Denies nausea or vomiting. No abdominal discomfort or pain. No diarrhea, no dysuria, no hematochezia or hematuria. PHYSICAL EXAMINATION: GENERAL: A middle-aged morbidly obese female with short neck, reduced oropharyngeal airspace. VITAL SIGNS: Temperature 98.3, heart rate 84 and regular, blood pressure 119/60, mean arterial pressure 79, respiratory rate 15-16, and thoracoabdominal saturation at 100% on room air. Intake is 950, output not documented. Weight is 273 pounds. HEAD, EYES, EARS, NOSE, AND THROAT: Pupils are reactive. Conjunctivae are pale. Sclerae are white. NECK: Supple, short neck, reduced oropharyngeal airspace. CHEST: Bilateral breath sounds. Clear to auscultation. No audible rhonchi or wheezing. CARDIOPULMONARY: Heart rhythm regular, S1 and S2 normal. ABDOMEN: Bowel sounds present, soft, no distention. NEUROLOGIC: Alert and oriented to name, place, and time. No cranial nerve deficits. No motor deficits. sensation to both lower extremities. LABORATORY DATA: WBC 2.7, hemoglobin 6.3, hematocrit 19.7, MCV 84.2, platelet count 89, neutrophils 83, lymphocytes 14.4, PT 30, INR 1.2, and PTT 32.2. SMA-7, sodium 141, potassium 4.5, chloride 112, CO2 of 21, blood, urea, and nitrogen 15, creatinine 0.1. Random glucose is 264. Total bilirubin 3.1, AST 25, ALT 18, alkaline phosphatase 80, and troponin is less than 0.0120. ProBNP is 520. Total protein is 6.3 and albumin 3.1. Microbiology none reported. Chest x-ray consistent with diminished inspiratory volume. Cardiac silhouette within normal range. Bilateral basilar opacity reflects bilateral pleural effusion with atelectasis and pulmonary vascular congestion. CURRENT MEDICATIONS: Albuterol and Atrovent inhalations 3 mL every four hours, Lipitor 20 mg p.o. at bedside, Colace 100 mg p.o. b.i.d., Pepcid 40 mg p.o. daily, ferrous sulfate 325 mg p.o. t.i.d. , Lasix 20 mg daily, Neurontin 300 mg p.o. every eight hours, Levemir 34 units subcutaneously twice daily, Humalog mix 50 units subcutaneously with breakfast, levothyroxine 175 mcg daily, Zestril 20 mg p.o. daily, magnesium oxide 400 mg daily, pramipexole 0.5 mg p.o. at bedtime, and Ambien 5 mg p.o. at bedtime . IMPRESSION AND PLAN: 1. Neurologic: Alert and awake, follows commands appropriately. 2. Pulmonary: Chest x-ray with bilateral pulmonary congestion, bilateral pleural effusion. Question high-output heart failure. Previous echocardiogram showed normal ejection fraction. 3. Cardiac: History of congestive heart failure. 4. Gastrointestinal: Suspected fatty liver related cirrhosis, hypersplenism, and pancytopenia related to liver cirrhosis, status post esophagogastroduodenoscopy in 12/2017 consistent with erosive gastritis. Discussed with trend investigator, transfusion in progress. 5. Endocrine: History of diabetes mellitus type 2, not controlled. Counseled dietary compliance and continue with the current medications. Follow hemoglobin A1c. Hypothyroidism, on levothyroxine supplement. 6. Hematology: Pancytopenia, suspected liver cirrhosis, splenomegaly, ongoing chronic iron-deficiency anemia related to gastritis, on iron supplement with multivitamins, status post transfusion two units of packed red blood cells. We will transfuse another two units to maintain hemoglobin above 8. Hematology consult requested. History of colon cancer, status post resection in 2005 with no recurrence with no acute issues noted. History of diabetic neuropathy with numbness and tingling of both lower extremities, on Neurontin and Pramipexole. Continue DVT prophylaxis. Hold Lovenox and Plavix given the low hemoglobin and the suspected gastritis with occult blood loss. Keep head of bed at 30 degrees up. Damon Soliz MD
[2018-02-11 06:43] LABS: ALB/GLOB RATIO 0.9 (1.0-2.1); ALBUMIN 2.9 g/dL (3.5-5.0); ALT/SGPT 23 U/L (9-52); AST/SGOT 25 U/L (14-36); BLOOD UREA NITROGEN 16 mg/dl (7-17); CALCIUM 8.1 mg/dL (8.4-10.2); GFR NON-AFRICAN AMERICAN > 60
[2018-02-11] MEDS ORDERED: Sodium Chloride 0.9% 250 ML IV ONE (07:42)
[2018-02-11] MEDS ORDERED: Propofol 10 mg/ml Inj (20 ML) ONE (07:46)
[2018-02-11] MEDS: Insulin Detemir 100 Units/ml Inj SC SCH ×2 (08:00→16:32)
[2018-02-11] MEDS: Insulin Lispro Mix 75/25 100 units/ml (HumaLog) 10ml SC SCH (08:30)
[2018-02-11] MEDS: Magnesium Oxide 400 mg Tab UD PO SCH (10:16)
[2018-02-11 12:55] LABS: FOLATE 15.6 ng/mL
--- NOTE | 2018-02-11 17:26 | CP.CCUPN ---
CCU Subjective - Physician Review Subjective (Free Text): Underwent and returned from EGD this AM, found to have erosive gatsritis without active bleeding. Started on iquid diet already. Total 4 units PRBCs given so far. Awake alert and conversant, does not appear distressed. Other vitals and I/O's reviewed. No fever spikes overnight. ROS: No other pertinent negs or positives on 10+ system review. PMSFH: All other Nursing and physician documentation reviewed to date; no new pertinent info noted relevant to current medical problems. EXAM- HEENT: no icterus, no gaze preference, Pupils 2-3 mm and reactive, oral mm dry NECK: No JVD visible, supple, carotids equal upstroke bilat/no bruits CHEST: decreased BS bases, no wheezes audible HEART: regular, distant, tachy S1S2, no rubs ABD: soft, mild distention, no tympany, no tenderness, BS hypoactive EXT: RUE PICC; no peripheral/ digital cyanosis, no calf tenderness or palpable cords, distal pulses intact and symmetrical. NEURO: no focal deficits. SKIN: no rashes, warm and dry. LABS: WBC= 4.6 HGB= 7.5 PLTs= 91K INR= normal on admission. Ld=451 K= 3.8 CL= 110 HCO3= 27 BUN/Cr= 16/0.6 BS= 84 TBili= 0.2 IMPRESSION / MAJOR PROBLEMS NOW: 1. UGIB 2' Gastritis 2. Acute Anemia 2' #1 3. Azotemia / Dehydration 4. Thrombocytopenia PLAN: 1. Serial monitopring of Hgb and Plateelt counts. 2. Possible lower endoscopy in AM tommorrow. 3. IVF Hydration 4. Stable for Tele bed. CCU Objective - Vital Signs / Intake & Output Vital Signs (Last 4 hours): Vital Signs Pulse Resp BP Pulse Ox 02/11/18 16:00 76 16 124/62 100 02/11/18 14:00 83 16 115/64 98 Intake and Output (Last 8hrs): Intake & Output 02/11/18 02/11/18 02/11/18 06:59 14:59 22:59 Intake Total 0 370 240 Balance 0 370 240 Intake: IV 0 150 Intake, Piggyback 100 Oral 120 240 Other: # Voids Urine, Voided 1 1 # Bowel Movements 1
--- NOTE | 2018-02-11 18:03 | CP.PCM.PN ---
Subjective - Date & Time of Evaluation Date of Evaluation: 02/11/18 Time of Evaluation: 11:00 - Subjective Subjective: 62 y/o F reports feeling better. Pt underwent EGD with erosive gastritis reported. Pt is afebrile, with NO acute events overnight. Objective - Vital Signs/Intake and Output Vital Signs (last 24 hours): Temp Pulse Resp BP Pulse Ox 97.8 F 76 16 124/62 100 02/11/18 12:00 02/11/18 16:00 02/11/18 16:00 02/11/18 16:00 02/11/18 16:00 Intake and Output: 02/11/18 02/11/18 06:59 18:59 Intake Total 100 610 Balance 100 610 - Medications Medications: Current Medications Albuterol/Ipratropium (Duoneb 3 Mg/0.5 Mg (3 Ml) Ud) 3 ml INH RQ4 PRN PRN Reason: Shortness of Breath Atorvastatin Calcium (Lipitor) 20 mg PO HS [facility] Last Admin: 02/10/18 21:09 Dose: 20 mg Docusate Sodium (Colace) 100 mg PO BID [facility] Last Admin: 02/11/18 10:17 Dose: Not Given Ferrous Sulfate (Feosol) 325 mg PO TIDWM [facility] Last Admin: 02/11/18 16:23 Dose: 325 mg Furosemide (Lasix) 20 mg PO DAILY [facility] Last Admin: 02/11/18 10:15 Dose: 20 mg Gabapentin (Neurontin) 300 mg PO Q8 [facility] Last Admin: 02/11/18 16:23 Dose: 300 mg Iron Sucrose 200 mg/ Sodium (Chloride) 110 mls @ 110 mls/hr IVPB DAILY [facility] Stop: 02/15/18 12:31 Last Admin: 02/11/18 10:13 Dose: 110 mls/hr Insulin Detemir (Levemir) 34 units SC BID [facility] Last Admin: 02/11/18 16:32 Dose: Not Given Insulin Lispro Protam/Lispro Human (Humalog Mix 75/25) 15 units SC BRK [facility] Last Admin: 02/11/18 08:30 Dose: Not Given Levothyroxine Sodium (Synthroid) 175 mcg PO DAILY@0630 [facility] Last Admin: 02/11/18 05:49 Dose: Not Given Lisinopril (Zestril) 20 mg PO DAILY [facility] Last Admin: 02/11/18 09:00 Dose: Not Given Magnesium Oxide (Mag-Ox) 400 mg PO DAILY [facility] Last Admin: 02/11/18 10:16 Dose: 400 mg Mirtazapine (Remeron) 30 mg PO [facility] Last Admin: 02/10/18 21:09 Dose: 30 mg Pantoprazole Sodium (Protonix Inj) 40 mg IVP BID [facility] Last Admin: 02/11/18 16:24 Dose: 40 mg Pramipexole Dihydrochloride (Mirapex) 0.5 mg PO [facility] Last Admin: 02/10/18 21:07 Dose: 0.5 mg Zolpidem Tartrate (Ambien) 5 mg PO [facility] Last Admin: 02/10/18 21:11 Dose: 5 mg - Labs Labs: 02/11/18 04:20 02/11/18 04:20 PT 13.0 Seconds (9.8-13.1) 02/09/18 17:45 INR 1.2 02/09/18 17:45 APTT 32.2 Seconds (25.6-37.1) 02/09/18 17:45 - Constitutional Appears: No Acute Distress - Head Exam Head Exam: NORMAL INSPECTION - Eye Exam Eye Exam: EOMI, Normal appearance - ENT Exam ENT Exam: Mucous Membranes Dry - Neck Exam Neck Exam: Full ROM. absent: Meningismus - Respiratory Exam Respiratory Exam: NORMAL BREATHING PATTERN. absent: Rhonchi, Wheezes - Cardiovascular Exam Cardiovascular Exam: +S1, +S2 - GI/Abdominal Exam GI & Abdominal Exam: Soft. absent: Guarding, Tenderness - Neurological Exam Neurological Exam: Alert, Awake, Oriented x3 Assessment and Plan (1) Erosive gastritis Status: Acute (2) Anemia Status: Acute (3) Diabetes Status: Chronic (4) Hyperlipidemia Status: Chronic (5) Hypertension Status: Chronic - Assessment and Plan (Free Text) Assessment: 62 y/o M with a PMhx of HTN, DM, HLD, Colon Cancer, hypothyroidism, colon cancer and SBO admitted for evaluation and management of pancytopenia. EGD showed erosive gastritis. S/P 4 PRBC's tranfusion overnight. --Hematology on board, Dr Cheung. --GI on board, Dr Lopez. --Home medications ordered. --As per GI, colonoscopy recommended. (As per pt, she had a colonoscopy a few months ago) --Continue with management as ordered.
[2018-02-12] MEDS: Levothyroxine 175 MCG TAB PO SCH (05:35)
[2018-02-12 06:07] LABS: MEAN CORPUSCULAR HEMOGLOBIN 27.2 pg (27.0-31.0); MEAN CORPUSCULAR HGB CONC 32.4 g/dL (33.0-37.0); RBC 2.93 Mil/uL (3.80-5.20); RED CELL DISTRIBUTION WIDTH 18.2 % (11.5-14.5)
[2018-02-12 06:20] LABS: BLOOD UREA NITROGEN 16 mg/dl (7-17); CALCIUM 8.3 mg/dL (8.4-10.2); GFR NON-AFRICAN AMERICAN > 60
[2018-02-12] MEDS: Insulin Lispro Mix 75/25 100 units/ml (HumaLog) 10ml SC SCH (08:53)
[2018-02-12] MEDS: Insulin Detemir 100 Units/ml Inj SC SCH ×2 (08:55→17:42)
[2018-02-12] MEDS: Magnesium Oxide 400 mg Tab UD PO SCH (08:56)
--- NOTE | 2018-02-12 11:32 | CP.CCUPN ---
CCU Subjective - Physician Review Subjective (Free Text): Uneventful night, no s/sx of active bleeding, repeat HGb levels have been stable. Awake alert and conversant, is not appear distressed. Other vitals and I/O's reviewed. No fever spikes overnight. ROS: No other pertinent negs or positives on 10+ system review. PMSFH: All other Nursing and physician documentation reviewed to date; no new pertinent info noted relevant to current medical problems. EXAM- HEENT: no icterus, no gaze preference, Pupils 2-3 mm and reactive, oral mm dry NECK: No JVD visible, supple, carotids equal upstroke bilat/no bruits CHEST: decreased BS bases, no wheezes audible HEART: regular, distant, tachy S1S2, no rubs ABD: soft, mild distention, no tympany, no tenderness, BS hypoactive EXT: RUE PICC; no peripheral/ digital cyanosis, no calf tenderness or palpable cords, distal pulses intact and symmetrical. NEURO: no focal deficits. SKIN: no rashes, warm and dry. LABS: WBC= 4.0 HGB= 8.0 PLTs= 87K Ge=584 K= 3.9 CL= 110 HCO3= 26 BUN/Cr= 16/0.7 BS= 163 IMPRESSION / MAJOR PROBLEMS NOW: 1. UGIB 2' Gastritis 2. Acute Anemia 2' #1 3. Azotemia / Dehydration 4. Thrombocytopenia PLAN: 1. Serial monitoring of Hgb and Platelet counts. 2. Patient has refused colonoscopy. 3. IVF Hydration 4. Stable for Tele bed downgrade to regular med-surg bed. CCU Objective - Vital Signs / Intake & Output Vital Signs (Last 4 hours): Vital Signs Temp Pulse Resp BP Pulse Ox 02/12/18 10:11 84 124/79 02/12/18 08:05 98.1 F 80 20 116/56 L 100 Intake and Output (Last 8hrs): Intake & Output 02/11/18 02/12/18 02/12/18 22:59 06:59 14:59 Intake Total 240 Balance 240 Intake: Oral 240 Other: # Voids Urine, Voided 1
--- NOTE | 2018-02-12 13:17 | CP.PCM.PN ---
Subjective - Date & Time of Evaluation Date of Evaluation: 02/12/18 Time of Evaluation: 13:10 - Subjective Subjective: GI progress note for Dr. Lopez Patient seen and examined at bedside. Patient has had multiple soft/liquid brown , non melenic, non bloody bowel movements yesterday, only 1 today, and complains of persistent, chronic abdominal pain, but no nausea, vomiting, and she is able to tolerate her diet Objective - Vital Signs/Intake and Output Vital Signs (last 24 hours): Temp Pulse Resp BP Pulse Ox 98.5 F 76 18 127/94 H 98 02/12/18 11:54 02/12/18 11:54 02/12/18 11:54 02/12/18 11:54 02/12/18 11:54 - Medications Medications: Current Medications Acetaminophen (Tylenol 325mg Tab) 650 mg PO Q6 PRN PRN Reason: Pain, Mild (1-3) Last Admin: 02/12/18 00:19 Dose: 650 mg Albuterol/Ipratropium (Duoneb 3 Mg/0.5 Mg (3 Ml) Ud) 3 ml INH RQ4 PRN PRN Reason: Shortness of Breath Atorvastatin Calcium (Lipitor) 20 mg PO HS [facility] Last Admin: 02/11/18 21:41 Dose: 20 mg Azithromycin (Zithromax) 250 mg PO DAILY [facility] PRN Reason: Protocol Stop: 02/15/18 09:01 Docusate Sodium (Colace) 100 mg PO BID [facility] Last Admin: 02/12/18 08:52 Dose: Not Given Ferrous Sulfate (Feosol) 325 mg PO TIDWM [facility] Last Admin: 02/12/18 08:53 Dose: 325 mg Furosemide (Lasix) 20 mg PO DAILY [facility] Last Admin: 02/11/18 10:15 Dose: 20 mg Gabapentin (Neurontin) 300 mg PO Q8 [facility] Last Admin: 02/12/18 08:56 Dose: 300 mg Iron Sucrose 200 mg/ Sodium (Chloride) 110 mls @ 110 mls/hr IVPB DAILY [facility] Stop: 02/15/18 12:31 Last Admin: 02/12/18 08:57 Dose: 110 mls/hr Ibuprofen (Motrin Tab) 400 mg PO Q6 PRN PRN Reason: Pain, moderate (4-7) Insulin Detemir (Levemir) 34 units SC BID [facility] Last Admin: 02/12/18 08:55 Dose: 34 u Insulin Lispro Protam/Lispro Human (Humalog Mix 75/25) 15 units SC BRK [facility] Last Admin: 02/12/18 08:53 Dose: 15 units Levothyroxine Sodium (Synthroid) 175 mcg PO DAILY@0630 [facility] Last Admin: 02/12/18 05:35 Dose: 175 mcg Lisinopril (Zestril) 20 mg PO DAILY [facility] Last Admin: 02/12/18 10:11 Dose: 20 mg Magnesium Oxide (Mag-Ox) 400 mg PO DAILY [facility] Last Admin: 02/12/18 08:56 Dose: 400 mg Mirtazapine (Remeron) 30 mg PO [facility] Last Admin: 02/11/18 21:41 Dose: 30 mg Pantoprazole Sodium (Protonix Inj) 40 mg IVP BID [facility] Last Admin: 02/12/18 08:51 Dose: 40 mg Pramipexole Dihydrochloride (Mirapex) 0.5 mg PO [facility] Last Admin: 02/11/18 21:41 Dose: 0.5 mg Zolpidem Tartrate (Ambien) 5 mg PO [facility] Last Admin: 02/11/18 21:46 Dose: 5 mg - Labs Labs: 02/12/18 05:45 02/12/18 05:45 PT 13.0 Seconds (9.8-13.1) 02/09/18 17:45 INR 1.2 02/09/18 17:45 APTT 32.2 Seconds (25.6-37.1) 02/09/18 17:45 - Constitutional Appears: Well, Non-toxic, No Acute Distress - Head Exam Head Exam: ATRAUMATIC, NORMOCEPHALIC - Eye Exam Eye Exam: Normal appearance. absent: Conjunctival injection, Scleral icterus - ENT Exam ENT Exam: Mucous Membranes Moist, Normal Oropharynx - Respiratory Exam Respiratory Exam: NORMAL BREATHING PATTERN. absent: Accessory Muscle Use, Respiratory Distress - Cardiovascular Exam Cardiovascular Exam: RRR - GI/Abdominal Exam GI & Abdominal Exam: Soft, Tenderness (epigastrium). absent: Distended - Extremities Exam Extremities Exam: absent: Calf Tenderness, Pedal Edema, Tenderness - Neurological Exam Neurological Exam: Alert, Awake, Oriented x3 - Psychiatric Exam Psychiatric exam: Normal Affect, Normal Mood - Skin Skin Exam: Dry, Intact, Normal Color, Warm Assessment and Plan - Assessment and Plan (Free Text) Assessment: 62F with severe anemia, reported melenic bowel movement at home, and +stool occult blood with improving Hgb after 4 units of PRBC Plan: Repeat EGD 02/13 to re-evaluate Continue protonix, PRN nausea medication NPO after midnight Hold stool softeners if having loose BM's Continue to trend CBC Seen and Discussed with Dr. John Miles, Pgy2
--- NOTE | 2018-02-12 16:39 | CP.PCM.PN ---
Subjective - Date & Time of Evaluation Date of Evaluation: 02/12/18 Time of Evaluation: 09:45 - Subjective Subjective: 62 y/o F evaluated and examined by bedside with Dr Sanford by bedside. Today, pt complains of throat pain and R sided neck pain since yesterday that aggravates with eating. Pt afebrile with NO acute events overnight. Objective - Vital Signs/Intake and Output Vital Signs (last 24 hours): Temp Pulse Resp BP Pulse Ox 98.9 F 82 11 L 113/57 L 100 02/12/18 16:00 02/12/18 16:00 02/12/18 16:00 02/12/18 16:00 02/12/18 16:00 Intake and Output: 02/12/18 02/12/18 06:59 18:59 Intake Total 10 Balance 10 - Medications Medications: Current Medications Acetaminophen (Tylenol 325mg Tab) 650 mg PO Q6 PRN PRN Reason: Pain, Mild (1-3) Last Admin: 02/12/18 00:19 Dose: 650 mg Albuterol/Ipratropium (Duoneb 3 Mg/0.5 Mg (3 Ml) Ud) 3 ml INH RQ4 PRN PRN Reason: Shortness of Breath Atorvastatin Calcium (Lipitor) 20 mg PO HS [facility] Last Admin: 02/11/18 21:41 Dose: 20 mg Azithromycin (Zithromax) 250 mg PO DAILY [facility] PRN Reason: Protocol Stop: 02/15/18 09:01 Last Admin: 02/12/18 15:25 Dose: 250 mg Docusate Sodium (Colace) 100 mg PO BID [facility] Last Admin: 02/12/18 08:52 Dose: Not Given Ferrous Sulfate (Feosol) 325 mg PO TIDWM [facility] Last Admin: 02/12/18 13:05 Dose: 325 mg Furosemide (Lasix) 20 mg PO DAILY [facility] Last Admin: 02/12/18 10:20 Dose: 20 mg Gabapentin (Neurontin) 300 mg PO Q8 [facility] Last Admin: 02/12/18 08:56 Dose: 300 mg Iron Sucrose 200 mg/ Sodium (Chloride) 110 mls @ 110 mls/hr IVPB DAILY [facility] Stop: 02/15/18 12:31 Last Admin: 02/12/18 08:57 Dose: 110 mls/hr Lactated Ringer's (Lactated Ringer's) 1,000 mls @ 50 mls/hr IV .Q20H [facility] Ibuprofen (Motrin Tab) 400 mg PO Q6 PRN PRN Reason: Pain, moderate (4-7) Last Admin: 02/12/18 14:18 Dose: 400 mg Insulin Detemir (Levemir) 34 units SC BID [facility] Last Admin: 02/12/18 08:55 Dose: 34 u Insulin Lispro Protam/Lispro Human (Humalog Mix 75/25) 15 units SC BRK [facility] Last Admin: 02/12/18 08:53 Dose: 15 units Levothyroxine Sodium (Synthroid) 175 mcg PO DAILY@0630 [facility] Last Admin: 02/12/18 05:35 Dose: 175 mcg Lisinopril (Zestril) 20 mg PO DAILY [facility] Last Admin: 02/12/18 10:11 Dose: 20 mg Magnesium Oxide (Mag-Ox) 400 mg PO DAILY [facility] Last Admin: 02/12/18 08:56 Dose: 400 mg Mirtazapine (Remeron) 30 mg PO [facility] Last Admin: 02/11/18 21:41 Dose: 30 mg Pantoprazole Sodium (Protonix Inj) 40 mg IVP BID [facility] Last Admin: 02/12/18 08:51 Dose: 40 mg Pramipexole Dihydrochloride (Mirapex) 0.5 mg PO [facility] Last Admin: 02/11/18 21:41 Dose: 0.5 mg Zolpidem Tartrate (Ambien) 5 mg PO [facility] Last Admin: 02/11/18 21:46 Dose: 5 mg - Labs Labs: 02/12/18 05:45 02/12/18 05:45 PT 13.0 Seconds (9.8-13.1) 02/09/18 17:45 INR 1.2 02/09/18 17:45 APTT 32.2 Seconds (25.6-37.1) 02/09/18 17:45 - Constitutional Appears: No Acute Distress - Head Exam Head Exam: ATRAUMATIC - Eye Exam Eye Exam: EOMI - ENT Exam ENT Exam: Mucous Membranes Moist Additional comments: Posterior oropharynx: presence of erythema on R tonsil. - Neck Exam Neck Exam: Full ROM, Tenderness (on R side submandibular area.) - Respiratory Exam Respiratory Exam: NORMAL BREATHING PATTERN. absent: Rhonchi, Wheezes - GI/Abdominal Exam GI & Abdominal Exam: Soft. absent: Distended, Tenderness - Neurological Exam Neurological Exam: Alert, Awake, Oriented x3 Assessment and Plan (1) Erosive gastritis Status: Acute (2) Anemia Status: Acute (3) Diabetes Status: Chronic (4) Hyperlipidemia Status: Chronic (5) Hypertension Status: Chronic - Assessment and Plan (Free Text) Assessment: 62 y/o M with a PMhx of HTN, DM, HLD, Colon Cancer, hypothyroidism, colon cancer and SBO admitted for evaluation and management of pancytopenia. EGD showed erosive gastritis. S/P 4 PRBC's tranfusion overnight. --Stable --Hgb stable since transfusion. Monitor CBC. --Azithromycin ordered for pharyngitis. --Ibuprofen for pain management. --Receiving IV Iron. --Plan is to repeat EGD on 02/13. --Hematology on board, Dr Cheung. --GI on board, Dr Lopez. --Continue with management as ordered.
[2018-02-13] MEDS: Lactated Ringer's 1,000 ML IV SCH ×2 (00:03→20:00)
[2018-02-13] MEDS ORDERED: Dextrose 50% SYRINGE Inj (50 ml) IVP ONE (04:09)
[2018-02-13 05:30] LABS: HEMOGLOBIN 8.4 g/dL (12.0-16.0); MEAN CELL VOLUME 85.2 fl (81.0-99.0); MEAN CORPUSCULAR HEMOGLOBIN 27.4 pg (27.0-31.0); MEAN CORPUSCULAR HGB CONC 32.2 g/dL (33.0-37.0); RBC 3.06 Mil/uL (3.80-5.20); RED CELL DISTRIBUTION WIDTH 17.9 % (11.5-14.5); WHITE BLOOD COUNT 3.4 K/uL (4.8-10.8)
[2018-02-13] MEDS: Levothyroxine 175 MCG TAB PO SCH (05:44)
[2018-02-13 05:45] LABS: ALT/SGPT 24 U/L (9-52)
[2018-02-13 05:56] LABS: ALBUMIN 3.2 g/dL (3.5-5.0); AST/SGOT 31 U/L (14-36); BLOOD UREA NITROGEN 13 mg/dl (7-17); CALCIUM 8.7 mg/dL (8.4-10.2); GFR NON-AFRICAN AMERICAN > 60
[2018-02-13] MEDS ORDERED: Lactated Ringer's 500 ML IV ONE (07:52)
[2018-02-13] MEDS: Insulin Lispro Mix 75/25 100 units/ml (HumaLog) 10ml SC SCH (08:00)
[2018-02-13] MEDS ORDERED: Propofol 10 mg/ml Inj (20 ML) ONE (08:46)
[2018-02-13] MEDS ORDERED: Etomidate 20 mg/10ml Inj IV ONE (08:46)
[2018-02-13] MEDS: Insulin Detemir 100 Units/ml Inj SC SCH ×2 (09:00→17:58)
[2018-02-13] MEDS: Magnesium Oxide 400 mg Tab UD PO SCH (09:00)
--- NOTE | 2018-02-13 11:47 | CP.PCM.PN ---
Subjective - Date & Time of Evaluation Date of Evaluation: 02/11/18 Time of Evaluation: 12:00 - Subjective Subjective: Feels weak erosive gastritis by EGD; no active bleeding Objective - Vital Signs/Intake and Output Vital Signs (last 24 hours): Temp Pulse Resp BP Pulse Ox 97.7 F 78 17 125/65 100 02/13/18 09:35 02/13/18 11:36 02/13/18 09:35 02/13/18 11:36 02/13/18 09:35 Intake and Output: 02/13/18 02/13/18 06:59 18:59 Intake Total 320 200 Output Total 475 Balance -155 200 - Medications Medications: Current Medications Acetaminophen (Tylenol 325mg Tab) 650 mg PO Q6 PRN PRN Reason: Pain, Mild (1-3) Last Admin: 02/12/18 00:19 Dose: 650 mg Albuterol/Ipratropium (Duoneb 3 Mg/0.5 Mg (3 Ml) Ud) 3 ml INH RQ4 PRN PRN Reason: Shortness of Breath Atorvastatin Calcium (Lipitor) 20 mg PO HS [facility] Last Admin: 02/12/18 21:14 Dose: 20 mg Azithromycin (Zithromax) 250 mg PO DAILY [facility] PRN Reason: Protocol Stop: 02/15/18 09:01 Last Admin: 02/13/18 11:38 Dose: 250 mg Docusate Sodium (Colace) 100 mg PO BID [facility] Last Admin: 02/13/18 09:00 Dose: Not Given Ferrous Sulfate (Feosol) 325 mg PO TIDWM [facility] Last Admin: 02/13/18 08:00 Dose: Not Given Furosemide (Lasix) 20 mg PO DAILY [facility] Last Admin: 02/13/18 09:00 Dose: Not Given Gabapentin (Neurontin) 300 mg PO Q8 [facility] Last Admin: 02/13/18 09:00 Dose: Not Given Iron Sucrose 200 mg/ Sodium (Chloride) 110 mls @ 110 mls/hr IVPB DAILY [facility] Stop: 02/15/18 12:31 Last Admin: 02/13/18 11:35 Dose: 110 mls/hr Lactated Ringer's (Lactated Ringer's) 1,000 mls @ 50 mls/hr IV .Q20H [facility] Last Admin: 02/13/18 00:03 Dose: 50 mls/hr Ibuprofen (Motrin Tab) 400 mg PO Q6 PRN PRN Reason: Pain, moderate (4-7) Last Admin: 02/12/18 14:18 Dose: 400 mg Insulin Detemir (Levemir) 34 units SC BID [facility] Last Admin: 02/13/18 09:00 Dose: Not Given Insulin Lispro Protam/Lispro Human (Humalog Mix 75/25) 15 units SC BRK [facility] Last Admin: 02/13/18 08:00 Dose: Not Given Levothyroxine Sodium (Synthroid) 175 mcg PO DAILY@0630 [facility] Last Admin: 02/13/18 05:44 Dose: Not Given Lisinopril (Zestril) 20 mg PO DAILY [facility] Last Admin: 02/13/18 11:36 Dose: 20 mg Magnesium Oxide (Mag-Ox) 400 mg PO DAILY [facility] Last Admin: 02/13/18 09:00 Dose: Not Given Mirtazapine (Remeron) 30 mg PO HS [facility] Last Admin: 02/12/18 21:14 Dose: 30 mg Pantoprazole Sodium (Protonix Inj) 40 mg IVP BID [facility] Last Admin: 02/13/18 11:34 Dose: 40 mg Pramipexole Dihydrochloride (Mirapex) 0.5 mg PO HS [facility] Last Admin: 02/12/18 21:14 Dose: 0.5 mg Sucralfate (Carafate Oral Susp) 1 gm PO QID [facility] - Labs Labs: 02/13/18 04:20 02/13/18 04:20 PT 13.0 Seconds (9.8-13.1) 02/09/18 17:45 INR 1.2 02/09/18 17:45 APTT 32.2 Seconds (25.6-37.1) 02/09/18 17:45 - Head Exam Head Exam: ATRAUMATIC - Eye Exam Eye Exam: Normal appearance - ENT Exam ENT Exam: Mucous Membranes Dry - Respiratory Exam Respiratory Exam: NORMAL BREATHING PATTERN - Cardiovascular Exam Cardiovascular Exam: +S1, +S2 - GI/Abdominal Exam GI & Abdominal Exam: Normal Bowel Sounds Assessment and Plan (1) Pancytopenia Assessment & Plan: GI bleeding iron deficiency anemia transfusion support on IV iron GI w/u splenomegaly noted; splenic sequestration Status: Chronic (2) Liver lesion Assessment & Plan: f/u AFP normal CEA outpatient PET CT Status: Acute
--- NOTE | 2018-02-13 11:58 | CP.PCM.PN ---
Subjective - Date & Time of Evaluation Date of Evaluation: 02/12/18 Time of Evaluation: 13:00 - Subjective Subjective: Feels tired, no bleeding. Objective - Vital Signs/Intake and Output Vital Signs (last 24 hours): Temp Pulse Resp BP Pulse Ox 98.4 F 77 14 122/63 98 02/13/18 11:50 02/13/18 11:50 02/13/18 11:50 02/13/18 11:50 02/13/18 11:50 Intake and Output: 02/13/18 02/13/18 06:59 18:59 Intake Total 320 200 Output Total 475 Balance -155 200 - Medications Medications: Current Medications Acetaminophen (Tylenol 325mg Tab) 650 mg PO Q6 PRN PRN Reason: Pain, Mild (1-3) Last Admin: 02/12/18 00:19 Dose: 650 mg Albuterol/Ipratropium (Duoneb 3 Mg/0.5 Mg (3 Ml) Ud) 3 ml INH RQ4 PRN PRN Reason: Shortness of Breath Atorvastatin Calcium (Lipitor) 20 mg PO HS [facility] Last Admin: 02/12/18 21:14 Dose: 20 mg Azithromycin (Zithromax) 250 mg PO DAILY [facility] PRN Reason: Protocol Stop: 02/15/18 09:01 Last Admin: 02/13/18 11:38 Dose: 250 mg Docusate Sodium (Colace) 100 mg PO BID [facility] Last Admin: 02/13/18 09:00 Dose: Not Given Ferrous Sulfate (Feosol) 325 mg PO TIDWM [facility] Last Admin: 02/13/18 08:00 Dose: Not Given Furosemide (Lasix) 20 mg PO DAILY [facility] Last Admin: 02/13/18 09:00 Dose: Not Given Gabapentin (Neurontin) 300 mg PO Q8 [facility] Last Admin: 02/13/18 09:00 Dose: Not Given Iron Sucrose 200 mg/ Sodium (Chloride) 110 mls @ 110 mls/hr IVPB DAILY [facility] Stop: 02/15/18 12:31 Last Admin: 02/13/18 11:35 Dose: 110 mls/hr Lactated Ringer's (Lactated Ringer's) 1,000 mls @ 50 mls/hr IV .Q20H [facility] Last Admin: 02/13/18 00:03 Dose: 50 mls/hr Ibuprofen (Motrin Tab) 400 mg PO Q6 PRN PRN Reason: Pain, moderate (4-7) Last Admin: 02/13/18 11:45 Dose: 400 mg Insulin Detemir (Levemir) 34 units SC BID [facility] Last Admin: 02/13/18 09:00 Dose: Not Given Insulin Lispro Protam/Lispro Human (Humalog Mix 75/25) 15 units SC BRK [facility] Last Admin: 02/13/18 08:00 Dose: Not Given Levothyroxine Sodium (Synthroid) 175 mcg PO DAILY@0630 [facility] Last Admin: 02/13/18 05:44 Dose: Not Given Lisinopril (Zestril) 20 mg PO DAILY [facility] Last Admin: 02/13/18 11:36 Dose: 20 mg Magnesium Oxide (Mag-Ox) 400 mg PO DAILY [facility] Last Admin: 02/13/18 09:00 Dose: Not Given Mirtazapine (Remeron) 30 mg PO HS [facility] Last Admin: 02/12/18 21:14 Dose: 30 mg Pantoprazole Sodium (Protonix Inj) 40 mg IVP BID [facility] Last Admin: 02/13/18 11:34 Dose: 40 mg Pramipexole Dihydrochloride (Mirapex) 0.5 mg PO HS [facility] Last Admin: 02/12/18 21:14 Dose: 0.5 mg Sucralfate (Carafate Oral Susp) 1 gm PO QID [facility] - Labs Labs: 02/13/18 04:20 02/13/18 04:20 PT 13.0 Seconds (9.8-13.1) 02/09/18 17:45 INR 1.2 02/09/18 17:45 APTT 32.2 Seconds (25.6-37.1) 02/09/18 17:45 - Head Exam Head Exam: ATRAUMATIC - Eye Exam Eye Exam: Normal appearance - ENT Exam ENT Exam: Mucous Membranes Dry - Respiratory Exam Respiratory Exam: NORMAL BREATHING PATTERN - Cardiovascular Exam Cardiovascular Exam: +S1, +S2 - GI/Abdominal Exam GI & Abdominal Exam: Normal Bowel Sounds Assessment and Plan (1) Pancytopenia Assessment & Plan: H/H fairly stable GI bleeding - appears resolved iron deficiency anemia transfusion support on IV iron GI evaluation splenomegaly noted; splenic sequestration Status: Chronic (2) Liver lesion Assessment & Plan: f/u AFP outpatient PET CT Status: Acute
--- NOTE | 2018-02-13 12:02 | CP.PCM.PN ---
Subjective - Date & Time of Evaluation Date of Evaluation: 02/13/18 Time of Evaluation: 11:00 - Subjective Subjective: No complaints, no bleeding Objective - Vital Signs/Intake and Output Vital Signs (last 24 hours): Temp Pulse Resp BP Pulse Ox 98.4 F 77 14 122/63 98 02/13/18 11:50 02/13/18 11:50 02/13/18 11:50 02/13/18 11:50 02/13/18 11:50 Intake and Output: 02/13/18 02/13/18 06:59 18:59 Intake Total 320 200 Output Total 475 Balance -155 200 - Medications Medications: Current Medications Acetaminophen (Tylenol 325mg Tab) 650 mg PO Q6 PRN PRN Reason: Pain, Mild (1-3) Last Admin: 02/12/18 00:19 Dose: 650 mg Albuterol/Ipratropium (Duoneb 3 Mg/0.5 Mg (3 Ml) Ud) 3 ml INH RQ4 PRN PRN Reason: Shortness of Breath Atorvastatin Calcium (Lipitor) 20 mg PO HS [facility] Last Admin: 02/12/18 21:14 Dose: 20 mg Azithromycin (Zithromax) 250 mg PO DAILY [facility] PRN Reason: Protocol Stop: 02/15/18 09:01 Last Admin: 02/13/18 11:38 Dose: 250 mg Docusate Sodium (Colace) 100 mg PO BID [facility] Last Admin: 02/13/18 09:00 Dose: Not Given Ferrous Sulfate (Feosol) 325 mg PO TIDWM [facility] Last Admin: 02/13/18 08:00 Dose: Not Given Furosemide (Lasix) 20 mg PO DAILY [facility] Last Admin: 02/13/18 09:00 Dose: Not Given Gabapentin (Neurontin) 300 mg PO Q8 [facility] Last Admin: 02/13/18 09:00 Dose: Not Given Iron Sucrose 200 mg/ Sodium (Chloride) 110 mls @ 110 mls/hr IVPB DAILY [facility] Stop: 02/15/18 12:31 Last Admin: 02/13/18 11:35 Dose: 110 mls/hr Lactated Ringer's (Lactated Ringer's) 1,000 mls @ 50 mls/hr IV .Q20H [facility] Last Admin: 02/13/18 00:03 Dose: 50 mls/hr Ibuprofen (Motrin Tab) 400 mg PO Q6 PRN PRN Reason: Pain, moderate (4-7) Last Admin: 02/13/18 11:45 Dose: 400 mg Insulin Detemir (Levemir) 34 units SC BID [facility] Last Admin: 02/13/18 09:00 Dose: Not Given Insulin Lispro Protam/Lispro Human (Humalog Mix 75/25) 15 units SC BRK [facility] Last Admin: 02/13/18 08:00 Dose: Not Given Levothyroxine Sodium (Synthroid) 175 mcg PO DAILY@0630 [facility] Last Admin: 02/13/18 05:44 Dose: Not Given Lisinopril (Zestril) 20 mg PO DAILY [facility] Last Admin: 02/13/18 11:36 Dose: 20 mg Magnesium Oxide (Mag-Ox) 400 mg PO DAILY [facility] Last Admin: 02/13/18 09:00 Dose: Not Given Mirtazapine (Remeron) 30 mg PO HS [facility] Last Admin: 02/12/18 21:14 Dose: 30 mg Pantoprazole Sodium (Protonix Inj) 40 mg IVP BID [facility] Last Admin: 02/13/18 11:34 Dose: 40 mg Pramipexole Dihydrochloride (Mirapex) 0.5 mg PO [facility] Last Admin: 02/12/18 21:14 Dose: 0.5 mg Sucralfate (Carafate Oral Susp) 1 gm PO QID [facility] - Labs Labs: 02/13/18 04:20 02/13/18 04:20 PT 13.0 Seconds (9.8-13.1) 02/09/18 17:45 INR 1.2 02/09/18 17:45 APTT 32.2 Seconds (25.6-37.1) 02/09/18 17:45 - Head Exam Head Exam: ATRAUMATIC - Eye Exam Eye Exam: Normal appearance - ENT Exam ENT Exam: Mucous Membranes Dry - Respiratory Exam Respiratory Exam: NORMAL BREATHING PATTERN - Cardiovascular Exam Cardiovascular Exam: +S1, +S2 - GI/Abdominal Exam GI & Abdominal Exam: Normal Bowel Sounds Assessment and Plan (1) Pancytopenia Assessment & Plan: H/H fairly stable GI bleeding - appears resolved iron deficiency anemia transfusion support on IV iron GI evaluation splenomegaly noted; splenic sequestration Status: Chronic (2) Liver lesion Assessment & Plan: CEA normal f/u AFP outpatient PET CT Status: Acute
[2018-02-13] MEDS: Sucralfate 1 gm/10 ml Oral Susp UD PO SCH ×3 (14:30→22:00)
[2018-02-14 06:02] LABS: HEMOGLOBIN 8.1 g/dL (12.0-16.0); MEAN CELL VOLUME 87.7 fl (81.0-99.0); MEAN CORPUSCULAR HEMOGLOBIN 27.3 pg (27.0-31.0); MEAN CORPUSCULAR HGB CONC 31.1 g/dL (33.0-37.0); RBC 2.96 Mil/uL (3.80-5.20); RED CELL DISTRIBUTION WIDTH 18.9 % (11.5-14.5); WHITE BLOOD COUNT 3.2 K/uL (4.8-10.8)
[2018-02-14] MEDS: Levothyroxine 175 MCG TAB PO SCH (06:40)
[2018-02-14 08:47] LABS: ALT/SGPT 22 U/L (9-52); AST/SGOT 31 U/L (14-36); BLOOD UREA NITROGEN 12 mg/dl (7-17); CALCIUM 8.5 mg/dL (8.4-10.2); GFR NON-AFRICAN AMERICAN > 60
[2018-02-14] MEDS: Sucralfate 1 gm/10 ml Oral Susp UD PO SCH ×4 (08:57→21:26)
[2018-02-14] MEDS: Insulin Lispro Mix 75/25 100 units/ml (HumaLog) 10ml SC SCH (09:02)
[2018-02-14] MEDS: Insulin Detemir 100 Units/ml Inj SC SCH ×2 (09:06→17:19)
[2018-02-14] MEDS: Magnesium Oxide 400 mg Tab UD PO SCH (09:07)
[2018-02-14] MEDS: Insulin Regular 100 units/ml SC SCH ×2 (17:18→22:00)
--- NOTE | 2018-02-14 20:39 | CP.PCM.PN ---
Subjective - Date & Time of Evaluation Date of Evaluation: 02/14/18 Time of Evaluation: 17:00 - Subjective Subjective: Has some neck pain. Objective - Vital Signs/Intake and Output Vital Signs (last 24 hours): Temp Pulse Resp BP Pulse Ox 98.3 F 87 18 114/73 97 02/14/18 18:37 02/14/18 18:37 02/14/18 18:37 02/14/18 18:37 02/14/18 18:37 Intake and Output: 02/14/18 02/15/18 18:59 06:59 Intake Total 240 Balance 240 - Medications Medications: Current Medications Acetaminophen (Tylenol 325mg Tab) 650 mg PO Q6 PRN PRN Reason: Pain, Mild (1-3) Last Admin: 02/12/18 00:19 Dose: 650 mg Albuterol/Ipratropium (Duoneb 3 Mg/0.5 Mg (3 Ml) Ud) 3 ml INH RQ4 PRN PRN Reason: Shortness of Breath Atorvastatin Calcium (Lipitor) 20 mg PO HS [facility] Last Admin: 02/13/18 22:31 Dose: 20 mg Azithromycin (Zithromax) 250 mg PO DAILY [facility] PRN Reason: Protocol Stop: 02/15/18 09:01 Last Admin: 02/14/18 09:09 Dose: 250 mg Docusate Sodium (Colace) 100 mg PO BID [facility] Last Admin: 02/14/18 16:37 Dose: Not Given Ferrous Sulfate (Feosol) 325 mg PO TIDWM [facility] Last Admin: 02/14/18 16:38 Dose: 325 mg Furosemide (Lasix) 20 mg PO DAILY [facility] Last Admin: 02/14/18 09:03 Dose: 20 mg Gabapentin (Neurontin) 300 mg PO Q8 [facility] Last Admin: 02/14/18 16:38 Dose: 300 mg Iron Sucrose 200 mg/ Sodium (Chloride) 110 mls @ 110 mls/hr IVPB DAILY [facility] Stop: 02/15/18 12:31 Last Admin: 02/14/18 11:00 Dose: 110 mls/hr Lactated Ringer's (Lactated Ringer's) 1,000 mls @ 50 mls/hr IV .Q20H [facility] Last Admin: 02/13/18 20:00 Dose: Not Given Insulin Detemir (Levemir) 34 units SC BID [facility] Last Admin: 02/14/18 17:19 Dose: 34 u Insulin Human Regular (Humulin R) 0 units SC ACHS [facility] PRN Reason: Protocol Last Admin: 02/14/18 17:18 Dose: 3 units Insulin Lispro Protam/Lispro Human (Humalog Mix 75/25) 15 units SC BRK [facility] Last Admin: 02/14/18 09:02 Dose: Not Given Levothyroxine Sodium (Synthroid) 175 mcg PO DAILY@0630 [facility] Last Admin: 02/14/18 06:40 Dose: 175 mcg Lisinopril (Zestril) 20 mg PO DAILY [facility] Last Admin: 02/14/18 09:08 Dose: 20 mg Magnesium Oxide (Mag-Ox) 400 mg PO DAILY [facility] Last Admin: 02/14/18 09:07 Dose: 400 mg Mirtazapine (Remeron) 30 mg PO HS [facility] Last Admin: 02/13/18 22:31 Dose: 30 mg Pantoprazole Sodium (Protonix Inj) 40 mg IVP BID [facility] Last Admin: 02/14/18 16:39 Dose: 40 mg Pramipexole Dihydrochloride (Mirapex) 0.5 mg PO HS [facility] Last Admin: 02/13/18 22:31 Dose: 0.5 mg Sucralfate (Carafate Oral Susp) 1 gm PO QID [facility] Last Admin: 02/14/18 16:37 Dose: 1 gm - Labs Labs: 02/14/18 05:30 02/14/18 05:30 PT 13.0 Seconds (9.8-13.1) 02/09/18 17:45 INR 1.2 02/09/18 17:45 APTT 32.2 Seconds (25.6-37.1) 02/09/18 17:45 - Head Exam Head Exam: ATRAUMATIC - Eye Exam Eye Exam: Normal appearance - ENT Exam ENT Exam: Mucous Membranes Dry - Respiratory Exam Respiratory Exam: NORMAL BREATHING PATTERN - Cardiovascular Exam Cardiovascular Exam: +S1, +S2 - GI/Abdominal Exam GI & Abdominal Exam: Normal Bowel Sounds Assessment and Plan (1) Pancytopenia Assessment & Plan: H/H fairly stable GI bleeding - appears resolved iron deficiency anemia transfusion support on IV iron GI w/u splenomegaly noted; splenic sequestration Status: Chronic (2) Liver lesion Assessment & Plan: CEA normal f/u AFP outpatient PET CT Status: Acute
[2018-02-15] MEDS: Levothyroxine 175 MCG TAB PO SCH (05:49)
[2018-02-15] MEDS: Insulin Regular 100 units/ml SC SCH ×4 (06:42→21:53)
[2018-02-15] MEDS: Insulin Lispro Mix 75/25 100 units/ml (HumaLog) 10ml SC SCH (08:30)
[2018-02-15] MEDS: Sucralfate 1 gm/10 ml Oral Susp UD PO SCH ×4 (09:43→21:01)
[2018-02-15] MEDS: Magnesium Oxide 400 mg Tab UD PO SCH (09:46)
[2018-02-15] MEDS: Insulin Detemir 100 Units/ml Inj SC SCH ×2 (09:47→17:38)
[2018-02-15 10:43] LABS: BASO % 0.9 % (0.0-2.0); EOS # 0.2 K/uL (0.0-0.7); EOS % 5.6 % (0.0-4.0); HEMOGLOBIN 8.4 g/dL (12.0-16.0); LYMPH # 0.6 K/uL (1.0-4.3); MEAN CELL VOLUME 88.1 fl (81.0-99.0); MEAN CORPUSCULAR HEMOGLOBIN 28.1 pg (27.0-31.0); MEAN CORPUSCULAR HGB CONC 31.9 g/dL (33.0-37.0); MEAN PLATELET VOLUME 10.4 fl (7.2-11.7); MONO # 0.2 K/uL (0.0-0.8); MONO % 4.8 % (0.0-10.0); NEUT # 2.5 K/uL (1.8-7.0); NEUT % 70.7 % (50.0-75.0); RED CELL DISTRIBUTION WIDTH 20.8 % (11.5-14.5); WHITE BLOOD COUNT 3.5 K/uL (4.8-10.8)
--- NOTE | 2018-02-15 12:50 | CP.PCM.PN ---
Subjective - Date & Time of Evaluation Date of Evaluation: 02/15/18 Time of Evaluation: 12:49 - Subjective Subjective: see below Objective - Vital Signs/Intake and Output Vital Signs (last 24 hours): Temp Pulse Resp BP Pulse Ox 98.2 F 93 H 21 126/77 98 02/15/18 08:28 02/15/18 10:05 02/15/18 08:28 02/15/18 10:05 02/15/18 08:28 - Medications Medications: Current Medications Acetaminophen (Tylenol 325mg Tab) 650 mg PO Q6 PRN PRN Reason: Pain, Mild (1-3) Last Admin: 02/15/18 11:30 Dose: 650 mg Albuterol/Ipratropium (Duoneb 3 Mg/0.5 Mg (3 Ml) Ud) 3 ml INH RQ4 PRN PRN Reason: Shortness of Breath Atorvastatin Calcium (Lipitor) 20 mg PO HS [facility] Last Admin: 02/14/18 21:26 Dose: 20 mg Docusate Sodium (Colace) 100 mg PO BID [facility] Last Admin: 02/15/18 09:45 Dose: 100 mg Ferrous Sulfate (Feosol) 325 mg PO TIDWM [facility] Last Admin: 02/15/18 12:12 Dose: 325 mg Furosemide (Lasix) 20 mg PO DAILY [facility] Last Admin: 02/15/18 10:04 Dose: 20 mg Gabapentin (Neurontin) 300 mg PO Q8 [facility] Last Admin: 02/15/18 09:45 Dose: 300 mg Lactated Ringer's (Lactated Ringer's) 1,000 mls @ 50 mls/hr IV .Q20H [facility] Last Admin: 02/13/18 20:00 Dose: Not Given Insulin Detemir (Levemir) 34 units SC BID [facility] Last Admin: 02/15/18 09:47 Dose: 34 u Insulin Human Regular (Humulin R) 0 units SC ACHS [facility] PRN Reason: Protocol Last Admin: 02/15/18 12:25 Dose: 3 units Insulin Lispro Protam/Lispro Human (Humalog Mix 75/25) 15 units SC BRK [facility] Last Admin: 02/15/18 08:30 Dose: 15 units Levothyroxine Sodium (Synthroid) 175 mcg PO DAILY@0630 [facility] Last Admin: 02/15/18 05:49 Dose: 175 mcg Lisinopril (Zestril) 20 mg PO DAILY [facility] Last Admin: 02/15/18 10:05 Dose: 20 mg Magnesium Oxide (Mag-Ox) 400 mg PO DAILY [facility] Last Admin: 02/15/18 09:46 Dose: 400 mg Mirtazapine (Remeron) 30 mg PO HS [facility] Last Admin: 02/14/18 21:26 Dose: 30 mg Pantoprazole Sodium (Protonix Inj) 40 mg IVP BID [facility] Last Admin: 02/15/18 09:46 Dose: 40 mg Pramipexole Dihydrochloride (Mirapex) 0.5 mg PO HS [facility] Last Admin: 02/14/18 21:27 Dose: 0.5 mg Sucralfate (Carafate Oral Susp) 1 gm PO QID [facility] Last Admin: 02/15/18 12:34 Dose: 1 gm - Labs Labs: 02/15/18 10:20 02/14/18 05:30 PT 13.0 Seconds (9.8-13.1) 02/09/18 17:45 INR 1.2 02/09/18 17:45 APTT 32.2 Seconds (25.6-37.1) 02/09/18 17:45 Assessment and Plan - Assessment and Plan (Free Text) Plan: ENT Consult History of Present Illness 62 y/o female admitted with anemia who complains of intermittent right ear pain for one month. Allergies NKDA Exam awake, alert, comfortable Oral cavity and oropharynx clear, no swelling or redness. neck soft, no masses or LAD, trachea midline Right EAC and Tympanic Membrane clear, no infection, no swelling Left EAC and TM clear, no infection, no swelling Face symmetric Right TMJ tender on palpation. Impression Right ear pain could be from TMJ Recommend soft diet patient needs outpatient f/u with me for further evaluation after discharge home if she continues to have ear pain. this was explained to the patient. she understands.
[2018-02-15] MEDS: Lactated Ringer's 1,000 ML IV SCH (13:28)
--- NOTE | 2018-02-15 21:47 | CP.PCM.PN ---
Subjective - Date & Time of Evaluation Date of Evaluation: 02/15/18 Time of Evaluation: 21:45 - Subjective Subjective: Patient c/o abdominal distention. Denies epigastric or substernal hyperacidity. Objective - Vital Signs/Intake and Output Vital Signs (last 24 hours): Temp Pulse Resp BP Pulse Ox 97.8 F 87 18 105/65 98 02/15/18 16:12 02/15/18 16:12 02/15/18 16:12 02/15/18 16:12 02/15/18 16:12 - Medications Medications: Current Medications Acetaminophen (Tylenol 325mg Tab) 650 mg PO Q6 PRN PRN Reason: Pain, Mild (1-3) Last Admin: 02/15/18 21:01 Dose: 650 mg Albuterol/Ipratropium (Duoneb 3 Mg/0.5 Mg (3 Ml) Ud) 3 ml INH RQ4 PRN PRN Reason: Shortness of Breath Atorvastatin Calcium (Lipitor) 20 mg PO HS [facility] Last Admin: 02/15/18 21:01 Dose: 20 mg Docusate Sodium (Colace) 100 mg PO BID [facility] Last Admin: 02/15/18 17:29 Dose: 100 mg Ferrous Sulfate (Feosol) 325 mg PO TIDWM [facility] Last Admin: 02/15/18 17:34 Dose: 325 mg Furosemide (Lasix) 20 mg PO DAILY [facility] Last Admin: 02/15/18 10:04 Dose: 20 mg Gabapentin (Neurontin) 300 mg PO Q8 [facility] Last Admin: 02/15/18 17:29 Dose: 300 mg Lactated Ringer's (Lactated Ringer's) 1,000 mls @ 50 mls/hr IV .Q20H [facility] Last Admin: 02/15/18 13:28 Dose: Not Given Insulin Detemir (Levemir) 34 units SC BID [facility] Last Admin: 02/15/18 17:38 Dose: 34 u Insulin Human Regular (Humulin R) 0 units SC ACHS [facility] PRN Reason: Protocol Last Admin: 02/15/18 17:38 Dose: 1 units Insulin Lispro Protam/Lispro Human (Humalog Mix 75/25) 15 units SC BRK [facility] Last Admin: 02/15/18 08:30 Dose: 15 units Levothyroxine Sodium (Synthroid) 175 mcg PO DAILY@0630 [facility] Last Admin: 02/15/18 05:49 Dose: 175 mcg Lisinopril (Zestril) 20 mg PO DAILY [facility] Last Admin: 02/15/18 10:05 Dose: 20 mg Magnesium Oxide (Mag-Ox) 400 mg PO DAILY [facility] Last Admin: 02/15/18 09:46 Dose: 400 mg Mirtazapine (Remeron) 30 mg PO HS [facility] Last Admin: 02/15/18 21:01 Dose: 30 mg Pantoprazole Sodium (Protonix Inj) 40 mg IVP BID [facility] Last Admin: 02/15/18 17:30 Dose: 40 mg Pramipexole Dihydrochloride (Mirapex) 0.5 mg PO HS [facility] Last Admin: 02/15/18 21:01 Dose: 0.5 mg Sucralfate (Carafate Oral Susp) 1 gm PO QID [facility] Last Admin: 02/15/18 21:01 Dose: 1 gm - Labs Labs: 02/15/18 10:20 02/14/18 05:30 PT 13.0 Seconds (9.8-13.1) 02/09/18 17:45 INR 1.2 02/09/18 17:45 APTT 32.2 Seconds (25.6-37.1) 02/09/18 17:45 - Head Exam Head Exam: ATRAUMATIC - Eye Exam Eye Exam: Normal appearance - ENT Exam ENT Exam: Mucous Membranes Moist - Neck Exam Neck Exam: Normal Inspection - Cardiovascular Exam Cardiovascular Exam: REGULAR RHYTHM - GI/Abdominal Exam GI & Abdominal Exam: Distended, Soft, Normal Bowel Sounds. absent: Tenderness Assessment and Plan (1) Erosive gastritis Assessment & Plan: Hgb stable on intensive therapy with sucralfate and high dose PPI. Will continue to monitor closely to maintain Hgb in a reasonable range. Status: Acute
[2018-02-16] MEDS: Levothyroxine 175 MCG TAB PO SCH (06:15)
[2018-02-16] MEDS: Insulin Regular 100 units/ml SC SCH (06:44)
[2018-02-16 08:18] VITALS: BP 120/77; PULSE 79; RESP 20; TEMP 98.5; O2SAT 99
[2018-02-16] MEDS: Magnesium Oxide 400 mg Tab UD PO SCH (09:36)
[2018-02-16] MEDS: Sucralfate 1 gm/10 ml Oral Susp UD PO SCH (09:36)
[2018-02-16] MEDS: Insulin Detemir 100 Units/ml Inj SC SCH (09:38)
[2018-02-16] MEDS: Insulin Lispro Mix 75/25 100 units/ml (HumaLog) 10ml SC SCH (09:38)
--- NOTE | 2018-02-16 11:51 | CP.PCM.PN ---
Subjective - Date & Time of Evaluation Date of Evaluation: 02/16/18 Time of Evaluation: 11:00 - Subjective Subjective: GI progress note for Dr. Lopez pt seen and examined at bedside this AM. No adverse events overnight, no nausea , vomiting, abdominal pain, diarrhea, and is tolerating regular diet. Objective - Vital Signs/Intake and Output Vital Signs (last 24 hours): Temp Pulse Resp BP Pulse Ox 98.5 F 79 20 120/77 99 02/16/18 08:18 02/16/18 09:37 02/16/18 08:18 02/16/18 09:37 02/16/18 08:18 - Medications Medications: Current Medications Acetaminophen (Tylenol 325mg Tab) 650 mg PO Q6 PRN PRN Reason: Pain, Mild (1-3) Last Admin: 02/15/18 21:01 Dose: 650 mg Albuterol/Ipratropium (Duoneb 3 Mg/0.5 Mg (3 Ml) Ud) 3 ml INH RQ4 PRN PRN Reason: Shortness of Breath Atorvastatin Calcium (Lipitor) 20 mg PO HS [facility] Last Admin: 02/15/18 21:01 Dose: 20 mg Docusate Sodium (Colace) 100 mg PO BID [facility] Last Admin: 02/16/18 09:36 Dose: 100 mg Ferrous Sulfate (Feosol) 325 mg PO TIDWM [facility] Last Admin: 02/16/18 09:36 Dose: 325 mg Furosemide (Lasix) 20 mg PO DAILY [facility] Last Admin: 02/16/18 09:37 Dose: 20 mg Gabapentin (Neurontin) 300 mg PO Q8 [facility] Last Admin: 02/16/18 09:36 Dose: 300 mg Lactated Ringer's (Lactated Ringer's) 1,000 mls @ 50 mls/hr IV .Q20H [facility] Last Admin: 02/15/18 13:28 Dose: Not Given Insulin Detemir (Levemir) 34 units SC BID [facility] Last Admin: 02/16/18 09:38 Dose: 34 u Insulin Human Regular (Humulin R) 0 units SC ACHS [facility] PRN Reason: Protocol Last Admin: 02/16/18 06:44 Dose: Not Given Insulin Lispro Protam/Lispro Human (Humalog Mix 75/25) 15 units SC BRK [facility] Last Admin: 02/16/18 09:38 Dose: 15 units Levothyroxine Sodium (Synthroid) 175 mcg PO DAILY@0630 [facility] Last Admin: 02/16/18 06:15 Dose: 175 mcg Lisinopril (Zestril) 20 mg PO DAILY [facility] Last Admin: 02/16/18 09:37 Dose: 20 mg Magnesium Oxide (Mag-Ox) 400 mg PO DAILY [facility] Last Admin: 02/16/18 09:36 Dose: 400 mg Mirtazapine (Remeron) 30 mg PO [facility] Last Admin: 02/15/18 21:01 Dose: 30 mg Pantoprazole Sodium (Protonix Inj) 40 mg IVP BID [facility] Last Admin: 02/16/18 09:36 Dose: 40 mg Pramipexole Dihydrochloride (Mirapex) 0.5 mg PO [facility] Last Admin: 02/15/18 21:01 Dose: 0.5 mg Sucralfate (Carafate Oral Susp) 1 gm PO QID [facility] Last Admin: 02/16/18 09:36 Dose: 1 gm - Labs Labs: 02/15/18 10:20 02/14/18 05:30 PT 13.0 Seconds (9.8-13.1) 02/09/18 17:45 INR 1.2 02/09/18 17:45 APTT 32.2 Seconds (25.6-37.1) 02/09/18 17:45 - Constitutional Appears: Well, Non-toxic, No Acute Distress - Head Exam Head Exam: ATRAUMATIC, NORMOCEPHALIC - Eye Exam Eye Exam: Normal appearance. absent: Conjunctival injection, Scleral icterus - ENT Exam ENT Exam: Mucous Membranes Moist, Normal Oropharynx - Respiratory Exam Respiratory Exam: NORMAL BREATHING PATTERN. absent: Accessory Muscle Use, Respiratory Distress - GI/Abdominal Exam GI & Abdominal Exam: Soft. absent: Distended, Tenderness - Neurological Exam Neurological Exam: Alert, Awake, Oriented x3 - Psychiatric Exam Psychiatric exam: Normal Affect, Normal Mood - Skin Skin Exam: Dry, Normal Color, Warm Assessment and Plan - Assessment and Plan (Free Text) Assessment: 62F with severe anemia d/t erosive gastritis, hemoglobin stable Plan: HGB is stable, no further GI intervention at this time Patient should follow up with Dr. Lopez in his office to schedule re- evaluation via endoscopy Patient should receive a repeat CT scan in 2 months to re-evaluate for history of liver mass on ultrasound on 12/2017 REcommend daily carafate and PPI Return to ER for any further signs of GI bleed, new onset fatigue, or any other concerning symptoms Discussed with Dr. Lopez, who agrees with aboVe Elda Miles, PGY2
--- NOTE | 2018-02-18 14:30 | PQF ---
PROVIDER RESPONSE TEXT: Acute diastolic CHF suspected as shown on chest x-ray REVIEWER QUERY TEXT: CHF Acuity and Type Congestive Heart Failure is documented in the Medical Record. Please document the type and acuity (in cludes probable or suspected) Such as: Type: -- Systolic -- Diastolic -- Combined -- Other, please specify Acuity: -- Acute -- Chronic -- Acute on chronic -- Other, please specify Also please document the underlying cause of the CHF (includes probable or suspected) The patient's Clinical Indicators include: Query created by: Laquita Song on 02/17/2018 3:15 PM Electronically signed by: Corby Quispe MD 02/18/2018 2:27 PM
== END 2018-02-16 12:16 | disposition home or self-care (01) | DRG 574 ==
LOC: H.ER 16:56 → H.ERHOLD 18:55 → H.ICU/CCU 20:31 → H.MEDSURG1 02-14 18:12
PROVIDERS: ADMIT Family Medicine; ATTEND Family Medicine
PROC: 30233N1 Transfusion of Nonautologous Red Blood Cells into Peripheral Vein, Percutaneous Approach (ICD-10-PCS; 2018-02-09)
PROC: 02HV33Z Insertion of Infusion Device into Superior Vena Cava, Percutaneous Approach (ICD-10-PCS; principal; 2018-02-10)
PROC: 0DB68ZX Excision of Stomach, Via Natural or Artificial Opening Endoscopic, Diagnostic (ICD-10-PCS; 2018-02-11)
PROC: 0DB68ZX Excision of Stomach, Via Natural or Artificial Opening Endoscopic, Diagnostic (ICD-10-PCS; 2018-02-13)
DX: D61.818 Other pancytopenia (principal); K29.01 Acute gastritis with bleeding; I50.31 Acute diastolic (congestive) heart failure; J44.9 Chronic obstructive pulmonary disease, unspecified; I11.0 Hypertensive heart disease with heart failure; K74.60 Unspecified cirrhosis of liver; E11.40 Type 2 diabetes mellitus with diabetic neuropathy, unspecified; E86.0 Dehydration; D62 Acute posthemorrhagic anemia; E03.9 Hypothyroidism, unspecified; E78.00 Pure hypercholesterolemia, unspecified; E78.5 Hyperlipidemia, unspecified; Z85.038 Personal history of other malignant neoplasm of large intestine; F32.9 Major depressive disorder, single episode, unspecified; F41.9 Anxiety disorder, unspecified; Z79.4 Long term (current) use of insulin; K76.9 Liver disease, unspecified; D73.1 Hypersplenism; R79.89 Other specified abnormal findings of blood chemistry; K29.50 Unspecified chronic gastritis without bleeding; G89.29 Other chronic pain; R07.0 Pain in throat; H92.01 Otalgia, right ear; E66.01 Morbid (severe) obesity due to excess calories; Z68.38 Body mass index [BMI] 38.0-38.9, adult; M19.90 Unspecified osteoarthritis, unspecified site

== ENCOUNTER 2018-03-18 01:05 | Inpatient (IN) | payer OTHER ==
[2018-03-18] MEDS ORDERED: Morphine 4 MG/ML VIAL IVP STA (01:55)
[2018-03-18] MEDS ORDERED: Iohexol 240 (50 ml) PO ONE (01:56)
[2018-03-18] MEDS ORDERED: Iohexol 240 (50 ml) ONE (02:26)
[2018-03-18] MEDS ORDERED: Morphine 4 MG/ML VIAL ONE (02:26)
[2018-03-18 03:08] LABS: BASO % 1.3 % (0.0-2.0); EOS # 0.2 K/uL (0.0-0.7); EOS % 4.5 % (0.0-4.0); LYMPH # 0.8 K/uL (1.0-4.3); LYMPH % 24.1 % (20.0-40.0); MEAN CELL VOLUME 89.1 fl (81.0-99.0); MEAN CORPUSCULAR HEMOGLOBIN 28.3 pg (27.0-31.0); MEAN CORPUSCULAR HGB CONC 31.7 g/dL (33.0-37.0); MONO # 0.2 K/uL (0.0-0.8); MONO % 5.8 % (0.0-10.0); NEUT # 2.2 K/uL (1.8-7.0); NEUT % 64.3 % (50.0-75.0); NRBC % 0.2 % (0.0-0.0); RBC 2.14 Mil/uL (3.80-5.20); RED CELL DISTRIBUTION WIDTH 18.5 % (11.5-14.5); WHITE BLOOD COUNT 3.4 K/uL (4.8-10.8)
[2018-03-18 03:11] LABS: INR 1.2; PROTHROMBIN TIME 13.4 Seconds (9.8-13.1)
--- NOTE | 2018-03-18 03:11 | ED PDOC ---
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 States that for the past 2 days she's had diffuse abdominal pain with nausea and black stools. Also with shortness of breath, states that she gets like this when she has worsening anemia. No fevers, chills, cough. Past Medical History Vital Signs: Last Vital Signs Temp 98.5 F 03/19/18 00:08 Pulse 82 03/19/18 00:08 Resp 18 03/19/18 00:08 BP 107/68 03/19/18 00:08 Pulse Ox 100 03/18/18 23:58 - Medical History PMH: Anemia, Anxiety, Arthritis, Asthma, COPD, Depression, Diabetes, HTN, Hypercholesterolemia, Hyperlipidemia, Peripheral Edema Denies: Bronchitis, Hepatitis, HIV, Hyperthyroidism, Hypothyroidism, Chronic Kidney Disease, Seizures, Sexually Transmitted Disease - Surgical History Surgical History: Appendectomy, Cholecystectomy, Hernia Repair Denies: Pacemaker - Family History Family History: States: Unknown Family Hx, Hypertension - Immunization History Hx Tetanus Toxoid Vaccination: No Hx Influenza Vaccination: Yes Hx Pneumococcal Vaccination: No - Home Medications Home Medications: Ambulatory Orders Medication Instructions Recorded Albuterol Sulfate [Ventolin Hfa] 2 puff IH Q6 PRN 01/12/18 Ascorbic Acid [Vitamin C 500 mg 500 mg PO DAILY 01/12/18 Tab] Atorvastatin [Lipitor] 20 mg PO DAILY 01/12/18 Cyanocobalamin [Vitamin B12 1000 1,000 mcg PO DAILY 01/12/18 mcg Tab] Docusate Sodium [Camacho' 100 mg PO BID 01/12/18 Laxative] Ferrous Sulfate [Feosol] 325 mg PO TID 01/12/18 Gabapentin [Neurontin] 300 mg PO Q8 01/12/18 Insulin Aspart Prot/Insuln Asp 15 unit SC BRK 01/12/18 [Novolog Mix 70-30 Vial] Insulin Glargine,Hum.rec.anlog 34 unit SC BID 01/12/18 [Basaglar Kwikpen U-100] Lisinopril [Zestril] 20 mg PO DAILY 01/12/18 Magnesium Oxide [Mag-Ox] 400 mg PO DAILY 01/12/18 Mirtazapine [Remeron] 30 mg PO HS 01/12/18 Nitroglycerin [Nitrostat] 0.4 mg SL Q5MIN PRN 01/12/18 Pramipexole [Mirapex] 0.5 mg PO HS 01/12/18 Zolpidem [Ambien] 5 mg PO HS 01/12/18 Acetaminophen [Tylenol 325mg tab] 650 mg PO Q6 PRN tab 01/15/18 Insulin Human Regular [HumuLIN R] 0 units SC ACHS ml 01/15/18 Levothyroxine [Synthroid] 175 mcg PO DAILY@0630 tab 01/15/18 Furosemide [Lasix] 20 mg PO DAILY #14 tab 02/16/18 Pantoprazole Sodium [Protonix] 40 mg PO BID #60 ect 02/16/18 Sucralfate [Carafate Oral Susp] 1 gm PO QID #30 [facility] 02/16/18 - Allergies Allergies/Adverse Reactions: Allergies Allergy/AdvReac Type Severity Reaction Status Date / Time No Known Allergies Allergy Verified 03/18/18 07:23 Review of Systems ROS Statement: Except As Marked, All Systems Reviewed And Found Negative Cardiovascular: Positive for: Chest Pain, Palpitations Gastrointestinal: Positive for: Nausea, Abdominal Pain Physical Exam - Reviewed Nursing Documentation Reviewed: Yes Vital Signs Reviewed: Yes - Physical Exam Appears: Positive for: Well, Non-toxic, No Acute Distress Head Exam: Positive for: ATRAUMATIC, NORMAL INSPECTION, NORMOCEPHALIC Skin: Positive for: Normal Color, Warm, DRY Eye Exam: Positive for: EOMI, Normal appearance, PERRL ENT: Positive for: Normal ENT Inspection Neck: Positive for: Normal, Painless ROM Cardiovascular/Chest: Positive for: Regular Rate, Rhythm Respiratory: Positive for: CNT, Normal Breath Sounds Gastrointestinal/Abdominal: Positive for: Tenderness (Diffuse tenderness), Distended, Asicites. Negative for: Mass, Guarding, Rebound, Hernia Back: Positive for: Normal Inspection Rectal: Positive for: Blood Streaked Stool (DEVONTE Figueroa) Extremity: Positive for: Normal ROM Neurologic/Psych: Positive for: Alert, Oriented - Laboratory Results Result Diagrams: 03/18/18 02:58 03/18/18 02:58 - ECG ECG Rhythm: Positive for: Normal QRS, Normal ST Segment, Sinus Rhythm O2 Sat by Pulse Oximetry: 99 Pulse Ox Interpretation: Normal Medical Decision Making Medical Decision MakinAM Patient presenting with chest pain, abdominal pain --Patient has significant co-morbidities --Currently in no acute distress, vitals stable --Differential includes but not limited to: anemia, GIB, ACS, Electrolyte imbalance --Will require workup including labs, CT 6AM --Patient ambulating back and forth to bathroom --No other bleeding in ED --PAtient consented for transfusion --Patient has ascites on CT --Case discussed with Dr. Quispe and Dr. Lopez --Will admit for anemia and GIB Disposition - Clinical Impression Clinical Impression: Anemia, GI bleed - Patient ED Disposition Is Patient to be Admitted: Yes - Disposition Disposition Time: 03:30 Condition: FAIR
[2018-03-18 03:14] LABS: PARTIAL THROMBOPLASTIN TIME 31.8 Seconds (25.6-37.1)
[2018-03-18 03:17] LABS: HEMOGLOBIN 6.1 g/dL (12.0-16.0)
[2018-03-18 03:23] LABS: ALBUMIN 3.3 g/dL (3.5-5.0); ALT/SGPT 24 U/L (9-52); AST/SGOT 35 U/L (14-36); BILIRUBIN,DIRECT 0.2 mg/ml (0.0-0.4); BLOOD UREA NITROGEN 10 mg/dl (7-17); CALCIUM 8.8 mg/dL (8.4-10.2); GFR NON-AFRICAN AMERICAN > 60
[2018-03-18 03:34] LABS: B-TYPE NATRIURETIC PEPTIDE 384 pg/ml (0-900)
[2018-03-18] MEDS ORDERED: Pantoprazole 40 MG in Sodium Chloride 0.9% 100 ML IVPB STA (03:52)
[2018-03-18] MEDS ORDERED: Sodium Chloride 0.9% 50 ML IV ONE (04:41)
[2018-03-18] MEDS ORDERED: Iohexol 300 100 ML IJ ONE (04:41)
[2018-03-18] MEDS ORDERED: cefTRIAXone (Rocephin) 1 gm Inj ONE (07:14)
--- NOTE | 2018-03-18 08:24 | RAD ---
Date of service: 03/18/2018 HISTORY: chest pain, abd pain COMPARISON: 02/09/2018 FINDINGS: LUNGS: Interstitial pulmonary edema inferred. Discoid atelectatic changes at both lung bases. PLEURA: Small bilateral pleural effusions-less now than before pneumothorax. CARDIOVASCULAR: Cardiomegaly-similar. Now lesser pulmonary venous congestion OSSEOUS STRUCTURES: Thoracic spondylosis. Left humeral orthopedic anchor VISUALIZED UPPER ABDOMEN: Normal. OTHER FINDINGS: None. IMPRESSION: Persistent albeit less pronounced pulmonary venous congestion/CHF.
--- NOTE | 2018-03-18 08:46 | CT ---
Date of service: 03/18/2018 PROCEDURE: CT Abdomen and Pelvis with contrast HISTORY: hx of cirrhosis, abd pain, distension COMPARISON: 12/15/2017 TECHNIQUE: Contrast dose: 90 mL of Omnipaque 300 Radiation dose: Total exam DLP = 731 mGy-cm. This CT exam was performed using one or more of the following dose reduction techniques: Automated exposure control, adjustment of the mA and/or kV according to patient size, and/or use of iterative reconstruction technique. FINDINGS: LOWER THORAX: Interval increased bilateral pleural effusions with passive compressive atelectasis. Enlarged heart LIVER: Hepatomegaly/cirrhotic liver. Splenomegaly. No gross lesion or ductal dilatation. GALLBLADDER AND BILE DUCTS: Nonvisualized-post cholecystectomy no suspect dilated ducts. PANCREAS: Unremarkable. No gross lesion or ductal dilatation. 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 ADRENALS: Unremarkable. No mass. KIDNEYS AND URETERS: Unremarkable. No hydronephrosis. No solid mass. VASCULATURE: Varices. No aortic aneurysm. BOWEL: Partial colectomy. [place] enteric anastomosis site without obstruction or gross mass. Few rectosigmoid colonic diverticuli without gross diverticulitis. APPENDIX: Not identified-inferred prior appendectomy with partial colectomy. PERITONEUM: There is increased mesenteric edema present. There is intraperitoneal fluid anteriorly (axis series 3, image 131) around the left colon loop. No free air. LYMPH NODES: Unremarkable. No enlarged lymph nodes. BLADDER: Moderately distended-no mass or bladder wall thickening appreciated REPRODUCTIVE: Uterus not identified. BONES: No acute fracture. OTHER FINDINGS: Interval increased subcutaneous edema/interval increased anasarca findings. Pronounced in the anterior abdominal subcutaneous fat-concomitant panniculitis here possible. No abscess or fluid collections identified here IMPRESSION: Status post partial colectomy with colo enteric anastomosis site similar and unremarkable appearing . No obstruction here. No mass here suggested. Few left recto sigmoid colonic diverticuli-no gross diverticulitis. Inferred appendectomy. Inferred cholecystectomy Cirrhotic liver/hepatic splenomegaly with varices-portal hypertension inferred. No gross thrombus seen interval increased mesenteric edema. Interval increased intraperitoneal fluid left anterior lower abdominal quadrant bordering colon loop. Interval increased anasarca. Midline concomitant abdominal subcutaneous fat panniculitis no fluid collections or abscesses here suggested. Comments: Preliminary report provided by [facility]. Partial colectomy now anastomotic site and interval increased intraperitoneal fluid left anterior and lower abdomen are additional findings now mention not previously referenced.
--- NOTE | 2018-03-18 10:35 | CP.PCM.CON ---
History of Present Illness - History of Present Illness History of Present Illness: 62 year old female with a history of DM, HTN, HL, hypothyroid, colon cancer s/p surgery and adjuvant chemotherapy in 2005, presenting with palpitations and abdominal pain, dmitted with symptomatic anemia with hgb of 6.1 The patient is known to me from her prior hospitalization about 1 month ago. At the time she was GI bleeding and found to have iron deficiency anemia. She was treated with PRBC transfusion and IV iron. She notes she has been having dark black stools associated with abdominal pain. Past medical history: DM, HTN, HL, hypothyroid, colon cancer s/p surgery and adjuvant chemotherapy in 2005. Past surgical history: hemicolectomy, cholecystectomy, hernia repair Family history: Denies hematologic and oncologic problems Social history: Denies tobacco, alcohol, and illicit drug use. Allergies: NKA Review of systems: All remaining review of systems including HEENT, cardiovascular, respiratory, gastrointestinal, genitourinary, musculoskeletal, dermatologic, neurologic, and psychiatric are negative unless mentioned in the HPI. Past Patient History - Past Medical History & Family History Past Medical History?: Yes - Past Social History Smoking Status: Never Smoked - CARDIAC Hx Cardiac Disorders: Yes (HTN,HLD) - PULMONARY Hx Respiratory Disorders: Yes (ASTHMA,COPD) - NEUROLOGICAL Hx Neurological Disorder: No - HEENT Hx HEENT Problems: No - RENAL Hx Chronic Kidney Disease: No - ENDOCRINE/METABOLIC Hx Endocrine Disorders: Yes (DM) - HEMATOLOGICAL/ONCOLOGICAL Hx Blood Disorders: Yes (ANEMIA) - INTEGUMENTARY Hx Dermatological Problems: No - MUSCULOSKELETAL/RHEUMATOLOGICAL Hx Musculoskeletal Disorders: Yes (ARTHRITIS) - GASTROINTESTINAL Hx Gastrointestinal Disorders: Yes Hx Bowel Surgery: Yes (SMO) Hx Colostomy: Yes (reversed 2009) Hx Gastroesophageal Reflux: Yes Hx Nausea: Yes Hx Vomiting: Yes Other/Comment: colon ca - GENITOURINARY/GYNECOLOGICAL Hx Genitourinary Disorders: No - PSYCHIATRIC Hx Psychophysiologic Disorder: Yes (ANX,DEPRESSION) - SURGICAL HISTORY Hx Appendectomy: Yes Hx Cholecystectomy: Yes - ANESTHESIA Hx Anesthesia: Yes Hx Anesthesia Reactions: No Hx Malignant Hyperthermia: No Meds Allergies/Adverse Reactions: Allergies Allergy/AdvReac Type Severity Reaction Status Date / Time No Known Allergies Allergy Verified 03/18/18 07:23 Physical Exam - Head Exam Head Exam: ATRAUMATIC - Eye Exam Eye Exam: Normal appearance - ENT Exam ENT Exam: Mucous Membranes Dry - Respiratory Exam Respiratory Exam: NORMAL BREATHING PATTERN - Cardiovascular Exam Cardiovascular Exam: +S1, +S2 - GI/Abdominal Exam GI & Abdominal Exam: Normal Bowel Sounds - Neurological Exam Neurological exam: Oriented x3 - Psychiatric Exam Psychiatric exam: Normal Affect, Normal Mood - Skin Skin Exam: Warm Results - Vital Signs Recent Vital Signs: Last Vital Signs Temp 98.6 F 03/18/18 09:18 Pulse 78 03/18/18 09:18 Resp 18 03/18/18 09:18 BP 106/58 L 03/18/18 09:18 Pulse Ox 98 03/18/18 09:18 - Labs Result Diagrams: 03/18/18 02:58 03/18/18 02:58 Labs: Laboratory Results - last 24 hr 03/18/18 03/18/18 03/18/18 02:58 02:58 02:58 WBC 3.4 L RBC 2.14 L Hgb 6.1 L* D Hct 19.1 L MCV 89.1 MCH 28.3 MCHC 31.7 L RDW 18.5 H Plt Count 87 L MPV 11.0 Neut % (Auto) 64.3 Lymph % (Auto) 24.1 [place] % (Auto) 5.8 Eos % (Auto) 4.5 H Baso % (Auto) 1.3 Neut # (Auto) 2.2 Lymph # (Auto) 0.8 L [place] # (Auto) 0.2 Eos # (Auto) 0.2 Baso # (Auto) 0.0 PT 13.4 H INR 1.2 APTT 31.8 Sodium 139 Potassium 4.0 Chloride 109 H Carbon Dioxide 22 Anion Gap 12 BUN 10 Creatinine 0.5 L Est GFR ( Amer) > 60 Est GFR (Non-Af Amer) > 60 Random Glucose 138 H Calcium 8.8 Total Bilirubin 0.7 Direct Bilirubin 0.2 AST 35 ALT 24 Alkaline Phosphatase 87 Troponin I < 0.0120 NT-Pro-B Natriuret Pep 384 Total Protein 6.7 Albumin 3.3 L Globulin 3.4 Albumin/Globulin Ratio 1.0 Stool Occult Blood 03/18/18 02:58 WBC RBC Hgb Hct MCV MCH MCHC RDW Plt Count MPV Neut % (Auto) Lymph % (Auto) [place] % (Auto) Eos % (Auto) Baso % (Auto) Neut # (Auto) Lymph # (Auto) [place] # (Auto) Eos # (Auto) Baso # (Auto) PT INR APTT Sodium Potassium Chloride Carbon Dioxide Anion Gap BUN Creatinine Est GFR ( Amer) Est GFR (Non-Af Amer) Random Glucose Calcium Total Bilirubin Direct Bilirubin AST ALT Alkaline Phosphatase Troponin I NT-Pro-B Natriuret Pep Total Protein Albumin Globulin Albumin/Globulin Ratio Stool Occult Blood Positive H Assessment & Plan (1) Pancytopenia Assessment and Plan: prior iron deficiency; will check ferritin transfusion support and start IV iron imaging suggestive of liver cirrhosis with portal HTN and splenomegaly; 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 Jay Thank you for this interesting consult. Status: Acute
[2018-03-18] MEDS ORDERED: Albuterol HFA 90 mcg/actuation (8 g) IH PRN (13:08)
[2018-03-18 13:15] LABS: FERRITIN 29.6 ng/Ml (11.1-264.0)
--- NOTE | 2018-03-18 14:40 | CP.PCM.CON ---
History of Present Illness - History of Present Illness History of Present Illness: 62 yo female with h/o liver cirrhosis and multiple admissions with severe anemia admitted for progressive weakness and abdominal pain. Has had multiple admissions for anemia and previous upper and lower endoscopy. Patient states she saw just small amount of blood in her stool. Review of Systems - Constitutional Constitutional: absent: Chills - EENT Eyes: absent: Blurred Vision Ears: absent: Ear Pain Nose/Mouth/Throat: absent: Epistaxis - Breasts Breasts: absent: Change in Shape - Cardiovascular Cardiovascular: absent: Chest Pain - Respiratory Respiratory: Dyspnea. absent: Cough - Gastrointestinal Gastrointestinal: Abdominal Pain Past Patient History - Past Medical History & Family History Past Medical History?: Yes - Past Social History Smoking Status: Never Smoked - CARDIAC Hx Cardiac Disorders: Yes (HTN,HLD) - PULMONARY Hx Respiratory Disorders: Yes (ASTHMA,COPD) - NEUROLOGICAL Hx Neurological Disorder: No - HEENT Hx HEENT Problems: No - RENAL Hx Chronic Kidney Disease: No - ENDOCRINE/METABOLIC Hx Endocrine Disorders: Yes (DM) - HEMATOLOGICAL/ONCOLOGICAL Hx Blood Disorders: Yes (ANEMIA) - INTEGUMENTARY Hx Dermatological Problems: No - MUSCULOSKELETAL/RHEUMATOLOGICAL Hx Musculoskeletal Disorders: Yes (ARTHRITIS) - GASTROINTESTINAL Hx Gastrointestinal Disorders: Yes Hx Bowel Surgery: Yes (SMO) Hx Colostomy: Yes (reversed 2008) Hx Gastroesophageal Reflux: Yes Hx Nausea: Yes Hx Vomiting: Yes Other/Comment: colon ca - GENITOURINARY/GYNECOLOGICAL Hx Genitourinary Disorders: No - PSYCHIATRIC Hx Psychophysiologic Disorder: Yes (ANX,DEPRESSION) - SURGICAL HISTORY Hx Appendectomy: Yes Hx Cholecystectomy: Yes - ANESTHESIA Hx Anesthesia: Yes Hx Anesthesia Reactions: No Hx Malignant Hyperthermia: No Meds Allergies/Adverse Reactions: Allergies Allergy/AdvReac Type Severity Reaction Status Date / Time No Known Allergies Allergy Verified 03/18/18 07:23 - Medications Medications: Current Medications Acetaminophen (Tylenol 325mg Tab) 650 mg PO Q6 PRN PRN Reason: Headache Albuterol (Ventolin Hfa 90 Mcg/Actuation (8 G)) 2 puff IH Q6 PRN PRN Reason: Shortness of Breath Ascorbic Acid (Vitamin C 500 Mg Tab) 500 mg PO DAILY LAUREN Atorvastatin Calcium (Lipitor) 20 mg PO DAILY LAUREN Cyanocobalamin (Vitamin B12 1000 Mcg Tab) 1,000 mcg PO DAILY LAUREN Furosemide (Lasix) 40 mg PO DAILY LAUREN Iron Sucrose 200 mg/ Sodium (Chloride) 110 mls @ 110 mls/hr IVPB DAILY LAUREN Stop: 03/23/18 10:46 Levothyroxine Sodium (Synthroid) 175 mcg PO DAILY@0630 LAUREN Lisinopril (Zestril) 20 mg PO DAILY LAUREN Magnesium Citrate (Citrate Of Mag) 300 ml PO ONCE ONE Stop: 03/18/18 17:01 Magnesium Oxide (Mag-Ox) 400 mg PO DAILY LAUREN Pantoprazole Sodium (Protonix Ec Tab) 40 mg PO BID LAUREN Pramipexole Dihydrochloride (Mirapex) 0.5 mg PO HS LAUREN Spironolactone (Aldactone) 50 mg PO BID LAUREN Sucralfate (Carafate Oral Susp) 1 gm PO QID LAUREN Zolpidem Tartrate (Ambien) 5 mg PO HS LAUREN Physical Exam - Constitutional Appears: No Acute Distress - Head Exam Head Exam: ATRAUMATIC - Eye Exam Eye Exam: EOMI - ENT Exam ENT Exam: Normal Exam - Neck Exam Neck exam: Positive for: Normal Inspection - Respiratory Exam Respiratory Exam: Clear to Auscultation Bilateral - Cardiovascular Exam Cardiovascular Exam: REGULAR RHYTHM, +S1, +S2 - GI/Abdominal Exam GI & Abdominal Exam: Normal Bowel Sounds, Soft, Tenderness - Extremities Exam Extremities exam: Positive for: pedal edema Results - Vital Signs Recent Vital Signs: Last Vital Signs Temp 97.7 F 03/18/18 13:00 Pulse 80 03/18/18 13:00 Resp 18 03/18/18 13:00 BP 111/54 L 03/18/18 13:00 Pulse Ox 99 03/18/18 13:00 - Labs Result Diagrams: 03/18/18 02:58 03/18/18 02:58 Labs: Laboratory Results - last 24 hr 03/18/18 03/18/18 03/18/18 02:58 02:58 02:58 WBC 3.4 L RBC 2.14 L Hgb 6.1 L* D Hct 19.1 L MCV 89.1 MCH 28.3 MCHC 31.7 L RDW 18.5 H Plt Count 87 L MPV 11.0 Neut % (Auto) 64.3 Lymph % (Auto) 24.1 [place] % (Auto) 5.8 Eos % (Auto) 4.5 H Baso % (Auto) 1.3 Neut # (Auto) 2.2 Lymph # (Auto) 0.8 L [place] # (Auto) 0.2 Eos # (Auto) 0.2 Baso # (Auto) 0.0 Retic Count PT 13.4 H INR 1.2 APTT 31.8 Sodium 139 Potassium 4.0 Chloride 109 H Carbon Dioxide 22 Anion Gap 12 BUN 10 Creatinine 0.5 L Est GFR ( Amer) > 60 Est GFR (Non-Af Amer) > 60 POC Glucose (mg/dL) Random Glucose 138 H Calcium 8.8 Ferritin Total Bilirubin 0.7 Direct Bilirubin 0.2 AST 35 ALT 24 Alkaline Phosphatase 87 Troponin I < 0.0120 NT-Pro-B Natriuret Pep 384 Total Protein 6.7 Albumin 3.3 L Globulin 3.4 Albumin/Globulin Ratio 1.0 Vitamin B12 Stool Occult Blood 03/18/18 03/18/18 03/18/18 02:58 11:17 11:41 WBC RBC Hgb Hct MCV MCH MCHC RDW Plt Count MPV Neut % (Auto) Lymph % (Auto) [place] % (Auto) Eos % (Auto) Baso % (Auto) Neut # (Auto) Lymph # (Auto) [place] # (Auto) Eos # (Auto) Baso # (Auto) Retic Count 5.6 H D PT INR APTT Sodium Potassium Chloride Carbon Dioxide Anion Gap BUN Creatinine Est GFR ( Amer) Est GFR (Non-Af Amer) POC Glucose (mg/dL) 114 H Random Glucose Calcium Ferritin Total Bilirubin Direct Bilirubin AST ALT Alkaline Phosphatase Troponin I NT-Pro-B Natriuret Pep Total Protein Albumin Globulin Albumin/Globulin Ratio Vitamin B12 Stool Occult Blood Positive H 03/18/18 11:41 WBC RBC Hgb Hct MCV MCH MCHC RDW Plt Count MPV Neut % (Auto) Lymph % (Auto) [place] % (Auto) Eos % (Auto) Baso % (Auto) Neut # (Auto) Lymph # (Auto) [place] # (Auto) Eos # (Auto) Baso # (Auto) Retic Count PT INR APTT Sodium Potassium Chloride Carbon Dioxide Anion Gap BUN Creatinine Est GFR ( Amer) Est GFR (Non-Af Amer) POC Glucose (mg/dL) Random Glucose Calcium Ferritin 29.6 Total Bilirubin Direct Bilirubin AST ALT Alkaline Phosphatase Troponin I NT-Pro-B Natriuret Pep Total Protein Albumin Globulin Albumin/Globulin Ratio Vitamin B12 488 Stool Occult Blood Assessment & Plan (1) Anemia Assessment and Plan: Severe anemia with small amount gross blood per rectum. . This time however BUN is normal. Patient also with increased ascites clinically. Will transfuse 2 u nits PRBC and increase diuretic therapy. Hematology note appreciated and patient being given IV iron. Upper endoscopy/colonoscopy tomorrow. Status: Acute
[2018-03-18] MEDS ORDERED: Sucralfate 1 gm/10 ml Oral Susp UD PO SCH (17:00)
[2018-03-18] MEDS ORDERED: Magnesium Citrate Oral SOL (300 ml) PO ONE (17:00)
[2018-03-18] MEDS: Sucralfate 1 gm/10 ml Oral Susp UD PO SCH ×3 (17:03→22:32)
[2018-03-18] MEDS: Pantoprazole 40 mg EC Tab PO SCH (18:08)
--- NOTE | 2018-03-18 18:43 | CP.PCM.HP ---
History of Present Illness - History of Present Illness History of Present Illness: Pt is a 62 y/o female with pmhx of Hx of Colon Cancer (s/p surgery and chemo), Liver Cirrhosis, DM, HTN, HLD, Depression, OA, Anemia, presents to ED with complaints of bright red blood per rectum when wiping, weakness and abdominal pain. Of note, Pt has had multiple hospitalizations in last 6 months for severe anemia due to erosive gastritis (see prior endoscopy reports) PMD: Dr. Quispe ER Course: -Hemoglobin noted to be 6.1 -Type & Cross 2 units PRBC -Protonix 60mg IV x1 -GI Consulted -Heme Onc Consulted -Abdomen CT Present on Admission - Present on Admission Any Indicators Present on Admission: No Past Patient History - Past Medical History & Family History Past Medical History?: Yes - Past Social History Smoking Status: Never Smoked - CARDIAC Hx Cardiac Disorders: Yes (HTN,HLD) - PULMONARY Hx Respiratory Disorders: Yes (ASTHMA,COPD) - NEUROLOGICAL Hx Neurological Disorder: No - HEENT Hx HEENT Problems: No - RENAL Hx Chronic Kidney Disease: No - ENDOCRINE/METABOLIC Hx Endocrine Disorders: Yes (DM) - HEMATOLOGICAL/ONCOLOGICAL Hx Blood Disorders: Yes (ANEMIA) - INTEGUMENTARY Hx Dermatological Problems: No - MUSCULOSKELETAL/RHEUMATOLOGICAL Hx Musculoskeletal Disorders: Yes (ARTHRITIS) - GASTROINTESTINAL Hx Gastrointestinal Disorders: Yes Hx Bowel Surgery: Yes (SMO) Hx Colostomy: Yes (reversed 2009) Hx Gastroesophageal Reflux: Yes Hx Nausea: Yes Hx Vomiting: Yes Other/Comment: colon ca - GENITOURINARY/GYNECOLOGICAL Hx Genitourinary Disorders: No - PSYCHIATRIC Hx Psychophysiologic Disorder: Yes (ANX,DEPRESSION) - SURGICAL HISTORY Hx Appendectomy: Yes Hx Cholecystectomy: Yes - ANESTHESIA Hx Anesthesia: Yes Hx Anesthesia Reactions: No Hx Malignant Hyperthermia: No Meds Allergies/Adverse Reactions: Allergies Allergy/AdvReac Type Severity Reaction Status Date / Time No Known Allergies Allergy Verified 03/18/18 07:23 Physical Exam - Constitutional Appears: No Acute Distress - Head Exam Head Exam: NORMAL INSPECTION - Eye Exam Eye Exam: Normal appearance Pupil Exam: NORMAL ACCOMODATION - ENT Exam ENT Exam: Mucous Membranes Moist - Neck Exam Neck exam: Positive for: Full Rom - Respiratory Exam Respiratory Exam: Clear to Auscultation Bilateral - Cardiovascular Exam Cardiovascular Exam: REGULAR RHYTHM - GI/Abdominal Exam GI & Abdominal Exam: Normal Bowel Sounds, Soft - Extremities Exam Extremities exam: Positive for: pedal edema (+1 BL), pedal pulses present - Neurological Exam Neurological exam: Alert, Oriented x3 - Psychiatric Exam Psychiatric exam: Normal Mood - Skin Skin Exam: Normal Color Results - Vital Signs Recent Vital Signs: Last Vital Signs Temp 97.9 F 03/18/18 16:41 Pulse 86 03/18/18 16:41 Resp 17 03/18/18 16:41 BP 103/67 03/18/18 18:07 Pulse Ox 96 03/18/18 15:40 - Labs Result Diagrams: 03/18/18 02:58 03/18/18 02:58 Labs: Laboratory Results - last 24 hr 03/18/18 03/18/18 03/18/18 02:58 02:58 02:58 WBC 3.4 L RBC 2.14 L Hgb 6.1 L* D Hct 19.1 L MCV 89.1 MCH 28.3 MCHC 31.7 L RDW 18.5 H Plt Count 87 L MPV 11.0 Neut % (Auto) 64.3 Lymph % (Auto) 24.1 [place] % (Auto) 5.8 Eos % (Auto) 4.5 H Baso % (Auto) 1.3 Neut # (Auto) 2.2 Lymph # (Auto) 0.8 L [place] # (Auto) 0.2 Eos # (Auto) 0.2 Baso # (Auto) 0.0 Retic Count PT 13.4 H INR 1.2 APTT 31.8 Sodium 139 Potassium 4.0 Chloride 109 H Carbon Dioxide 22 Anion Gap 12 BUN 10 Creatinine 0.5 L Est GFR ( Amer) > 60 Est GFR (Non-Af Amer) > 60 POC Glucose (mg/dL) Random Glucose 138 H Calcium 8.8 Ferritin Total Bilirubin 0.7 Direct Bilirubin 0.2 AST 35 ALT 24 Alkaline Phosphatase 87 Troponin I < 0.0120 NT-Pro-B Natriuret Pep 384 Total Protein 6.7 Albumin 3.3 L Globulin 3.4 Albumin/Globulin Ratio 1.0 Vitamin B12 Stool Occult Blood Blood Type Antibody Screen Crossmatch BBK History Checked 03/18/18 03/18/18 03/18/18 02:58 11:17 11:41 WBC RBC Hgb Hct MCV MCH MCHC RDW Plt Count MPV Neut % (Auto) Lymph % (Auto) [place] % (Auto) Eos % (Auto) Baso % (Auto) Neut # (Auto) Lymph # (Auto) [place] # (Auto) Eos # (Auto) Baso # (Auto) Retic Count 5.6 H D PT INR APTT Sodium Potassium Chloride Carbon Dioxide Anion Gap BUN Creatinine Est GFR ( Amer) Est GFR (Non-Af Amer) POC Glucose (mg/dL) 114 H Random Glucose Calcium Ferritin Total Bilirubin Direct Bilirubin AST ALT Alkaline Phosphatase Troponin I NT-Pro-B Natriuret Pep Total Protein Albumin Globulin Albumin/Globulin Ratio Vitamin B12 Stool Occult Blood Positive H Blood Type Antibody Screen Crossmatch BBK History Checked 03/18/18 03/18/18 03/18/18 11:41 13:20 15:49 WBC RBC Hgb Hct MCV MCH MCHC RDW Plt Count MPV Neut % (Auto) Lymph % (Auto) [place] % (Auto) Eos % (Auto) Baso % (Auto) Neut # (Auto) Lymph # (Auto) [place] # (Auto) Eos # (Auto) Baso # (Auto) Retic Count PT INR APTT Sodium Potassium Chloride Carbon Dioxide Anion Gap BUN Creatinine Est GFR ( Amer) Est GFR (Non-Af Amer) POC Glucose (mg/dL) 149 H Random Glucose Calcium Ferritin 29.6 Total Bilirubin Direct Bilirubin AST ALT Alkaline Phosphatase Troponin I NT-Pro-B Natriuret Pep Total Protein Albumin Globulin Albumin/Globulin Ratio Vitamin B12 488 Stool Occult Blood Blood Type A POSITIVE Antibody Screen Negative Crossmatch See Detail BBK History Checked Patient has bt Assessment & Plan (1) Abdominal pain Status: Acute (2) Anemia Status: Acute (3) Gastrointestinal bleeding Status: Resolved - Assessment and Plan (Free Text) Assessment: Pt is a 62 y/o female with pmhx of Hx of Colon Cancer (s/p surgery and chemo), Chronic Anemia, Liver Cirrhosis, DM, HTN, HLD, Depression, OA admitted for severe anemia, GI Bleed, and abdominal pain. -PPI daily -Sucralfate -GI Consulted: for colonocsopy and endoscopy tomorrow -Anemia imrpoved after transfusion. Hematology Consulted: IV Venofer, Anemia workup -Noted to have LE edema BL, ProBNP ordered Discussed case with Dr. Jose Enrique Cosby, PGY2
--- NOTE | 2018-03-19 05:41 | CARD ---
APPROVED REPORT Date of service: 03/18/2018 EKG Measurement Heart [id number] <Conclusion> Normal sinus rhythm ST & T wave abnormality, consider inferior ischemia Prolonged QT Abnormal ECG
[2018-03-19 05:51] LABS: ALB/GLOB RATIO 0.9 (1.0-2.1); ALBUMIN 3.1 g/dL (3.5-5.0); ALT/SGPT 25 U/L (9-52); AST/SGOT 33 U/L (14-36); BLOOD UREA NITROGEN 9 mg/dl (7-17); CALCIUM 8.4 mg/dL (8.4-10.2); GFR NON-AFRICAN AMERICAN > 60
[2018-03-19 05:54] LABS: HEMOGLOBIN 7.9 g/dL (12.0-16.0); MEAN CELL VOLUME 86.8 fl (81.0-99.0); MEAN CORPUSCULAR HEMOGLOBIN 28.6 pg (27.0-31.0); MEAN CORPUSCULAR HGB CONC 32.9 g/dL (33.0-37.0); RBC 2.76 Mil/uL (3.80-5.20); RED CELL DISTRIBUTION WIDTH 16.9 % (11.5-14.5)
[2018-03-19] MEDS: Levothyroxine 175 MCG TAB PO SCH (06:35)
--- NOTE | 2018-03-19 08:31 | PCM.RRT ---
<Saman Antonio - Last Filed: 03/19/18 08:31> WELFARE WORKER Nurse Assessment - Situation Location: [address] [place] [address] Room Number: [id number] WELFARE WORKER Reason for Call: Chest Pain WELFARE WORKER Called By: RN - IV IV Inserted during WELFARE WORKER?: No - Respiratory Oxygen Delivery Method: Nasal Cannula - Medication Medications Administered During WELFARE WORKER: Nitroglycerin sublingual 0.4 - Diagnostic Test Ordered EKG: Yes - Stat Labs Ordered WELFARE WORKER Stat Labs Ordered: TROPONIN - Vital Signs Vital Signs: Rapid Response Vital Sign Blood Pressure 108/48 Pulse Rate 84 Respiratory Rate 35 Oxygen Saturation 99 - Time WELFARE WORKER Ended Time WELFARE WORKER Ended: 05:50 - Vital Signs at end of WELFARE WORKER Vital Signs at end of WELFARE WORKER: Rapid Response End Vital Sign Blood Pressure 116/42 Pulse Rate 82 Respiratory Rate 31 O2 Sat by Pulse Oximetry 100 - Recommendations WELFARE WORKER Level of Care Recommendations: Remain in current setting I.Reason for WELFARE WORKER - A) Acute Change in Patient: (Select all that apply): Staff member or family is worried about patient, Chest Pain Plan - Assessment of Findings&Treatment Plan 62 y/o female with pmhx of Hx of Colon Cancer (s/p surgery and chemo), Liver Cirrhosis, DM, HTN, HLD, Depression, OA, Anemia admitted for bleeding DE. WELFARE WORKER called by nurse because of chest pain. WELFARE WORKER team arrived on site with Dr. Clemente. Patient reports substernal and left sided chest pain with heaviness. Denies any SOB. which started about 10 mins ago. Initial vitals BP 108/48, RR 16, HR 84. EKG done stat showed NSR with st and t wave abnormality which is unchanged from previous EKG. SL NTG given with improvement in symptoms. Troponins x 3 ordered. Repeat EKG at 11:30 am today. - F/U troponins - F/U repeat EKG - F/U routine labs - Monitor for acute changes - Patient to remain in telemetry <Sue Clemente - Last Filed: 03/20/18 19:53> WELFARE WORKER Nurse Assessment - Vital Signs Vital Signs: Rapid Response Vital Sign Blood Pressure 108/48 Pulse Rate 84 Respiratory Rate 35 Oxygen Saturation 99 - Vital Signs at end of WELFARE WORKER Vital Signs at end of WELFARE WORKER: Rapid Response End Vital Sign Blood Pressure 116/42 Pulse Rate 82 Respiratory Rate 31 O2 Sat by Pulse Oximetry 100 Attending/Attestation - Attestation I have personally seen and examined this patient.: Yes I have fully participated in the care of the patient.: Yes I have reviewed all pertinent clinical information, including history, physical exam and plan: Yes Notes (Text): 03/20/18 19:53 agree with findings and plan as above. patient improved, hd stable, nad.
[2018-03-19] MEDS ORDERED: Lactated Ringer's 500 ML IV ONE (08:44)
[2018-03-19] MEDS ORDERED: Propofol 10 mg/ml Inj (20 ML) ONE (08:56)
[2018-03-19] MEDS: Sucralfate 1 gm/10 ml Oral Susp UD PO SCH ×4 (10:34→21:20)
[2018-03-19] MEDS: Magnesium Oxide 400 mg Tab UD PO SCH (10:35)
[2018-03-19] MEDS: Pantoprazole 40 mg EC Tab PO SCH ×2 (10:35→16:17)
--- NOTE | 2018-03-19 11:24 | CP.PCM.PCO ---
Assessment/Plan - Assessment and Plan (Free Text) Assessment: Patient seen and examined. S/p endoscopy/colonoscopy this morning. finding c/w esophagitis, gastritis, diverticulosis. Patient weak but arousable. Denies chest pain, shortness of breath, abdominal pain, fever or chills. Pt would benefit from rollator walker due to her fatigue, general debility secondary to chronic anemia and history of colon ca. Will rx walker, medications added per GI recommendations PPI bid, spirinolactone bid. Patient for dc this afternoon. Discussed with Dr Quispe.
--- NOTE | 2018-03-19 13:56 | CP.PCM.PN ---
Subjective - Date & Time of Evaluation Date of Evaluation: 03/19/18 Time of Evaluation: 08:00 - Subjective Subjective: Pt seen and evaluated with Dr. Quispe. Reports mild epigastric burning pain. Discussed paln for blood transfusion with patient. Objective - Vital Signs/Intake and Output Vital Signs (last 24 hours): Temp Pulse Resp BP Pulse Ox 97.8 F 98 H 20 99/64 L 98 03/19/18 12:10 03/19/18 12:10 03/19/18 12:10 03/19/18 12:10 03/19/18 12:10 Intake and Output: 03/19/18 03/19/18 06:59 18:59 Intake Total 375 180 Balance 375 180 - Medications Medications: Current Medications Acetaminophen (Tylenol 325mg Tab) 650 mg PO Q6 PRN PRN Reason: Headache Last Admin: 03/18/18 18:06 Dose: 650 mg Albuterol (Ventolin Hfa 90 Mcg/Actuation (8 G)) 2 puff IH Q6 PRN PRN Reason: Shortness of Breath Ascorbic Acid (Vitamin C 500 Mg Tab) 500 mg PO DAILY [facility] Last Admin: 03/19/18 10:37 Dose: 500 mg Atorvastatin Calcium (Lipitor) 20 mg PO DAILY [facility] Last Admin: 03/19/18 10:34 Dose: 20 mg Cyanocobalamin (Vitamin B12 1000 Mcg Tab) 1,000 mcg PO DAILY [facility] Last Admin: 03/19/18 10:34 Dose: 1,000 mcg Furosemide (Lasix) 40 mg PO DAILY [facility] Last Admin: 03/19/18 10:34 Dose: Not Given Iron Sucrose 200 mg/ Sodium (Chloride) 110 mls @ 110 mls/hr IVPB DAILY [facility] Stop: 03/23/18 10:46 Last Admin: 03/19/18 10:37 Dose: 110 mls/hr Levothyroxine Sodium (Synthroid) 175 mcg PO DAILY@0630 [facility] Last Admin: 03/19/18 06:35 Dose: Not Given Lisinopril (Zestril) 20 mg PO DAILY [facility] Last Admin: 03/19/18 10:37 Dose: Not Given Magnesium Oxide (Mag-Ox) 400 mg PO DAILY [facility] Last Admin: 03/19/18 10:35 Dose: 400 mg Pantoprazole Sodium (Protonix Ec Tab) 40 mg PO BID [facility] Last Admin: 03/19/18 10:35 Dose: 40 mg Pramipexole Dihydrochloride (Mirapex) 0.5 mg PO [facility] Last Admin: 03/18/18 22:28 Dose: Not Given Spironolactone (Aldactone) 50 mg PO BID [facility] Last Admin: 03/19/18 10:32 Dose: Not Given Sucralfate (Carafate Oral Susp) 1 gm PO QID [facility] Last Admin: 03/19/18 13:29 Dose: 1 gm Zolpidem Tartrate (Ambien) 5 mg PO [facility] Last Admin: 03/18/18 22:32 Dose: Not Given - Labs Labs: 03/19/18 05:15 03/19/18 05:15 PT 13.4 Seconds (9.8-13.1) H 03/18/18 02:58 INR 1.2 03/18/18 02:58 APTT 31.8 Seconds (25.6-37.1) 03/18/18 02:58 - Constitutional Appears: Non-toxic, No Acute Distress - Head Exam Head Exam: NORMAL INSPECTION - Eye Exam Eye Exam: Normal appearance - ENT Exam ENT Exam: Mucous Membranes Moist - Neck Exam Neck Exam: Full ROM - Respiratory Exam Respiratory Exam: Clear to Ausculation Bilateral. absent: Rales, Wheezes - GI/Abdominal Exam GI & Abdominal Exam: Soft, Tenderness (Epigastric, mild), Normal Bowel Sounds - Extremities Exam Extremities Exam: Normal Inspection - Neurological Exam Neurological Exam: Alert, Oriented x3 - Skin Skin Exam: Pallor Assessment and Plan (1) Abdominal pain Status: Acute (2) Anemia Status: Acute (3) Gastrointestinal bleeding Status: Resolved - Assessment and Plan (Free Text) Assessment: Pt is a 62 y/o female with pmhx of Hx of Colon Cancer (s/p surgery and chemo), Chronic Anemia, Liver Cirrhosis, DM, HTN, HLD, Depression, OA admitted for severe anemia, GI Bleed, and abdominal pain. Endoscopy & Colonoscopy completed today--Esophagitis/Gastritis, Internal Hemorrhoids, Diverticulosis -Will optimize medication for treatment of gastritis -Hemoglobin 7.9, will transfuse 2 unit as per Hematology. Continue w. IV Venofer -IR Consulted for port placement Discussed case with Dr. Jose Enrique Csoby, PGY2
[2018-03-19 14:12] VITALS: BMI 40.1
--- NOTE | 2018-03-19 14:32 | CARD ---
APPROVED REPORT Date of service: 03/19/2018 EKG Measurement Heart [id number] PA [id number] <Conclusion> Normal sinus rhythm T wave abnormality, consider inferior ischemia Prolonged QT Abnormal ECG
[2018-03-20] MEDS: Levothyroxine 175 MCG TAB PO SCH (05:48)
[2018-03-20] MEDS: Sucralfate 1 gm/10 ml Oral Susp UD PO SCH ×4 (09:23→21:06)
[2018-03-20] MEDS: Pantoprazole 40 mg EC Tab PO SCH ×2 (09:24→16:47)
[2018-03-20] MEDS: Magnesium Oxide 400 mg Tab UD PO SCH (09:24)
[2018-03-20 10:04] LABS: HEMOGLOBIN 7.7 g/dL (12.0-16.0); MEAN CELL VOLUME 88.7 fl (81.0-99.0); MEAN CORPUSCULAR HEMOGLOBIN 28.3 pg (27.0-31.0); MEAN CORPUSCULAR HGB CONC 31.9 g/dL (33.0-37.0); RBC 2.71 Mil/uL (3.80-5.20); RED CELL DISTRIBUTION WIDTH 17.1 % (11.5-14.5); WHITE BLOOD COUNT 2.7 K/uL (4.8-10.8)
[2018-03-20] MEDS ORDERED: Lidocaine 1% 5ml Abboject ONE (10:37)
[2018-03-20] MEDS ORDERED: Lidocaine 1% w Epi 1:100,000 Inj ONE (10:38)
--- NOTE | 2018-03-20 11:50 | PCM.SURG1 ---
Surgeon's Initial Post Op Note - Surgeon's Notes Surgeon: Julius Bundy MD Shackler: NONE Type of Anesthesia: Local Pre-Operative Diagnosis: Anemia Operative Findings: US showed a patent right basilic vein. Post-Operative Diagnosis: Anemia Operation Performed: Single lumen picc right basilic vein, 37 cm. Tip is in the SVC. Specimen/Specimens Removed: NONE Estimated Blood Loss: EBL {In ML}: 2 Blood Products Given: N/A Drains Used: No Drains Post-Op Condition: Fair Date of Surgery/Procedure: 03/20/18 Time of Surgery/Procedure: 11:45
--- NOTE | 2018-03-20 13:07 | VASCULAR ---
PROCEDURE: Date of procedure: 03/20/2018 Procedure: 1. Placement of a right arm PICC with ultrasound and fluoroscopic guidance, CPT 03343 2. PICC tip confirmation with spot radiograph and is in the superior vena cava Medications: 1 percent lidocaine Total Fluoro time: 2.8 Seconds Radiation:0.49 MGy EBL: 2 cc HISTORY: Poor venous access, anemia TECHNIQUE: Following informed consent and procedure time-out, the patient was placed supine on the interventional table and the right arm prepped and draped in the usual sterile fashion. Ultrasound showed a patent and compressible right basilic vein. After the skin was anesthetized with lidocaine, the basilic vein was accessed with micro micropuncture technique using ultrasound guidance. A guidewire was then advanced under fluoroscopic guidance into the superior vena cava. An image documenting ultrasound guidance for vascular access was permanently saved. The length of the single-lumen 4 Serbian PICC was trimmed to 37 centimeters and advanced through a peel-away sheath. The PICC was position with tip of PICC confirm a spot radiograph the superior vena cava. The PICC was secured to the patient's skin. The PICC was flushed. A biopatch and sterile dressing was applied. IMPRESSION: Placement of a single-lumen 4 Serbian PICC trimmed to 37 centimeters via right basilic vein. The tip of the PICC is confirmed with spot radiograph and is in the superior vena cava.
--- NOTE | 2018-03-20 13:40 | CP.PCM.DIS ---
Provider - Provider Date of Admission: 03/18/18 03:55 Attending physician: Corby Quispe MD Primary care physician: Sravan Hillman MD Time Spent in preparation of Discharge (in minutes): 35 Diagnosis - Discharge Diagnosis (1) Abdominal pain Status: Resolved (2) Anemia Status: Chronic (3) Gastrointestinal bleeding Status: Resolved Hospital Course - Lab Results Lab Results: Most Recent Lab Values WBC 2.7 K/uL (4.8-10.8) L 03/20/18 09:50 RBC 2.71 Mil/uL (3.80-5.20) L 03/20/18 09:50 Hgb 7.7 g/dL (12.0-16.0) L 03/20/18 09:50 Hct 24.0 % (34.0-47.0) L 03/20/18 09:50 MCV 88.7 fl (81.0-99.0) 03/20/18 09:50 MCH 28.3 pg (27.0-31.0) 03/20/18 09:50 MCHC 31.9 g/dL (33.0-37.0) L 03/20/18 09:50 RDW 17.1 % (11.5-14.5) H 03/20/18 09:50 Plt Count 87 K/uL (130-400) L 03/20/18 09:50 MPV 11.0 fl (7.2-11.7) 03/18/18 02:58 Neut % (Auto) 64.3 % (50.0-75.0) 03/18/18 02:58 Lymph % (Auto) 24.1 % (20.0-40.0) 03/18/18 02:58 [place] % (Auto) 5.8 % (0.0-10.0) 03/18/18 02:58 Eos % (Auto) 4.5 % (0.0-4.0) H 03/18/18 02:58 Baso % (Auto) 1.3 % (0.0-2.0) 03/18/18 02:58 Neut # (Auto) 2.2 K/uL (1.8-7.0) 03/18/18 02:58 Lymph # (Auto) 0.8 K/uL (1.0-4.3) L 03/18/18 02:58 [place] # (Auto) 0.2 K/uL (0.0-0.8) 03/18/18 02:58 Eos # (Auto) 0.2 K/uL (0.0-0.7) 03/18/18 02:58 Baso # (Auto) 0.0 K/uL (0.0-0.2) 03/18/18 02:58 Retic Count 5.6 % (0.5-1.5) H D 03/18/18 11:41 PT 13.4 Seconds (9.8-13.1) H 03/18/18 02:58 INR 1.2 03/18/18 02:58 APTT 31.8 Seconds (25.6-37.1) 03/18/18 02:58 Sodium 137 mmol/l (132-148) 03/19/18 05:15 Potassium 3.7 MMOL/L (3.6-5.0) 03/19/18 05:15 Chloride 105 mmol/L (98-107) 03/19/18 05:15 Carbon Dioxide 25 mmol/L (22-30) 03/19/18 05:15 Anion Gap 11 (10-20) 03/19/18 05:15 BUN 9 mg/dl (7-17) 03/19/18 05:15 Creatinine 0.7 mg/dl (0.7-1.2) 03/19/18 05:15 Est GFR ( Amer) > 60 03/19/18 05:15 Est GFR (Non-Af Amer) > 60 03/19/18 05:15 POC Glucose (mg/dL) 183 mg/dL (65-110) H 03/18/18 21:36 Random Glucose 127 mg/dL (65-105) H 03/19/18 05:15 Calcium 8.4 mg/dL (8.4-10.2) 03/19/18 05:15 Ferritin 29.6 ng/Ml (11.1-264.0) 03/18/18 11:41 Total Bilirubin 2.4 mg/dl (0.2-1.3) H 03/19/18 05:15 Direct Bilirubin 0.2 mg/ml (0.0-0.4) 03/18/18 02:58 AST 33 U/L (14-36) 03/19/18 05:15 ALT 25 U/L (9-52) 03/19/18 05:15 Alkaline Phosphatase 96 U/L (38-126) 03/19/18 05:15 Troponin I < 0.0120 ng/mL (0.00-0.120) 03/19/18 12:03 NT-Pro-B Natriuret Pep 384 pg/ml (0-900) 03/18/18 02:58 Total Protein 6.4 G/DL (6.3-8.2) 03/19/18 05:15 Albumin 3.1 g/dL (3.5-5.0) L 03/19/18 05:15 Globulin 3.3 gm/dL (2.2-3.9) 03/19/18 05:15 Albumin/Globulin Ratio 0.9 (1.0-2.1) L 03/19/18 05:15 Vitamin B12 488 pg/mL (239-931) 03/18/18 11:41 Folate 16.0 ng/mL 03/18/18 11:41 Stool Occult Blood Positive (NEGATIVE) H 03/18/18 02:58 Blood Type A POSITIVE 03/18/18 13:20 Antibody Screen Negative 03/18/18 13:20 Crossmatch See Detail 03/18/18 13:20 BBK History Checked Patient has bt 03/18/18 13:20 - Hospital Course Hospital Course: Pt is a 62 y/o female with pmhx of Hx of Colon Cancer (s/p surgery and chemo), Liver Cirrhosis, DM, HTN, HLD, Depression, OA, Anemia, presented to [facility] on 03/18 with complaints of bright red blood per rectum when wiping, weakness and abdominal pain. She was found to have a hemoglobin of 6 and received 1 blood transfusion and IV Iron. GI was consulted and pt had endoscopy/colonoscopy which was significant for Esophagitis/Gastritis, Internal Hemorrhoids(non bleeding), Diverticulosis. A picc line was placed by IR because intravenous line could not be obtained and she was transfused 2 more units of PRBC. GI increased pt's diuretics and PPI and cleared the pt for discharge. Discussed case with Dr. Jose Enrique Cosby PGY2 Discharge Exam - Head Exam Head Exam: NORMAL INSPECTION - Eye Exam Eye Exam: Normal appearance - ENT Exam ENT Exam: Mucous Membranes Moist - Neck Exam Neck exam: Full Rom - Respiratory Exam Respiratory Exam: Clear to PA & Lateral. absent: Rales, Respiratory Distress - Cardiovascular Exam Cardiovascular Exam: REGULAR RHYTHM, +S1, +S2 - GI/Abdominal Exam GI & Abdominal Exam: Normal Bowel Sounds, Soft. absent: Tenderness - Extremities Exam Extremities exam: normal inspection - Neurological Exam Neurological exam: Alert, Oriented x3 - Psychiatric Exam Psychiatric exam: Normal Affect - Skin Skin Exam: Normal Color Discharge Plan - Discharge Medications Prescriptions: Furosemide 40 mg PO DAILY #30 tablet Pantoprazole [Protonix EC Tab] 40 mg PO BID #60 ect Spironolactone [Aldactone] 50 mg PO BID #60 tab - Follow Up Plan Condition: FAIR Disposition: HOME/ ROUTINE Instructions: Anemia Caused by Low Iron, Adult (DC) Referrals: Arturo Cheung MD [Staff Provider] - Sravan Hillman MD [Primary Care Provider] - Ashkan Lopez MD [Staff Provider] -
--- NOTE | 2018-03-21 00:09 | CP.PCM.PN ---
Subjective - Date & Time of Evaluation Date of Evaluation: 03/19/18 Time of Evaluation: 13:00 - Subjective Subjective: Has some abdominal pain. Objective - Vital Signs/Intake and Output Vital Signs (last 24 hours): Temp Pulse Resp BP Pulse Ox 98 F 77 18 112/72 96 03/20/18 21:30 03/20/18 21:30 03/20/18 21:30 03/20/18 21:30 03/20/18 19:20 Intake and Output: 03/20/18 03/21/18 18:59 06:59 Intake Total 370 325 Balance 370 325 - Medications Medications: Current Medications Acetaminophen (Tylenol 325mg Tab) 650 mg PO Q6 PRN PRN Reason: Headache Last Admin: 03/18/18 18:06 Dose: 650 mg Albuterol (Ventolin Hfa 90 Mcg/Actuation (8 G)) 2 puff IH Q6 PRN PRN Reason: Shortness of Breath Ascorbic Acid (Vitamin C 500 Mg Tab) 500 mg PO DAILY [facility] Last Admin: 03/20/18 09:24 Dose: Not Given Atorvastatin Calcium (Lipitor) 20 mg PO DAILY [facility] Last Admin: 03/20/18 09:24 Dose: Not Given Cyanocobalamin (Vitamin B12 1000 Mcg Tab) 1,000 mcg PO DAILY [facility] Last Admin: 03/20/18 09:24 Dose: Not Given Famotidine (Pepcid) 40 mg PO HS [facility] Last Admin: 03/20/18 21:06 Dose: 40 mg Furosemide (Lasix) 40 mg PO DAILY [facility] Last Admin: 03/20/18 09:24 Dose: Not Given Iron Sucrose 200 mg/ Sodium (Chloride) 110 mls @ 110 mls/hr IVPB DAILY [facility] Stop: 03/23/18 10:46 Last Admin: 03/20/18 09:31 Dose: 110 mls/hr Levothyroxine Sodium (Synthroid) 175 mcg PO DAILY@0630 [facility] Last Admin: 03/20/18 05:48 Dose: 175 mcg Lisinopril (Zestril) 20 mg PO DAILY [facility] Last Admin: 03/20/18 09:24 Dose: Not Given Magnesium Oxide (Mag-Ox) 400 mg PO DAILY [facility] Last Admin: 03/20/18 09:24 Dose: Not Given Pantoprazole Sodium (Protonix Ec Tab) 40 mg PO BID [facility] Last Admin: 03/20/18 16:47 Dose: 40 mg Pramipexole Dihydrochloride (Mirapex) 0.5 mg PO HS [facility] Last Admin: 03/20/18 21:06 Dose: 0.5 mg Spironolactone (Aldactone) 50 mg PO BID [facility] Last Admin: 03/20/18 16:46 Dose: 50 mg Sucralfate (Carafate Oral Susp) 1 gm PO QID [facility] Last Admin: 03/20/18 21:06 Dose: 1 gm Zolpidem Tartrate (Ambien) 5 mg PO HS [facility] Last Admin: 03/20/18 23:12 Dose: 5 mg - Labs Labs: 03/20/18 09:50 03/19/18 05:15 PT 13.4 Seconds (9.8-13.1) H 03/18/18 02:58 INR 1.2 03/18/18 02:58 APTT 31.8 Seconds (25.6-37.1) 03/18/18 02:58 - Head Exam Head Exam: ATRAUMATIC - Eye Exam Eye Exam: Normal appearance - ENT Exam ENT Exam: Mucous Membranes Dry - Respiratory Exam Respiratory Exam: NORMAL BREATHING PATTERN - Cardiovascular Exam Cardiovascular Exam: +S1, +S2 - GI/Abdominal Exam GI & Abdominal Exam: Normal Bowel Sounds Assessment and Plan (1) Pancytopenia Assessment & Plan: iron deficiency anemia transfusion support and IV iron imaging suggestive of liver cirrhosis with portal HTN and splenomegaly; likely splenic sequestration GI evaluation hepatitis panel negative last month f/u HIV Status: Chronic (2) History of colon cancer Assessment & Plan: s/p surgery s/p adjuvant chemotherapy with Dr. Jay Status: Acute
--- NOTE | 2018-03-21 00:10 | CP.PCM.PN ---
Subjective - Date & Time of Evaluation Date of Evaluation: 03/20/18 Time of Evaluation: 12:00 - Subjective Subjective: Feeling better after PRBC transfusion Objective - Vital Signs/Intake and Output Vital Signs (last 24 hours): Temp Pulse Resp BP Pulse Ox 98 F 77 18 112/72 96 03/20/18 21:30 03/20/18 21:30 03/20/18 21:30 03/20/18 21:30 03/20/18 19:20 Intake and Output: 03/20/18 03/21/18 18:59 06:59 Intake Total 370 325 Balance 370 325 - Medications Medications: Current Medications Acetaminophen (Tylenol 325mg Tab) 650 mg PO Q6 PRN PRN Reason: Headache Last Admin: 03/18/18 18:06 Dose: 650 mg Albuterol (Ventolin Hfa 90 Mcg/Actuation (8 G)) 2 puff IH Q6 PRN PRN Reason: Shortness of Breath Ascorbic Acid (Vitamin C 500 Mg Tab) 500 mg PO DAILY [facility] Last Admin: 03/20/18 09:24 Dose: Not Given Atorvastatin Calcium (Lipitor) 20 mg PO DAILY [facility] Last Admin: 03/20/18 09:24 Dose: Not Given Cyanocobalamin (Vitamin B12 1000 Mcg Tab) 1,000 mcg PO DAILY [facility] Last Admin: 03/20/18 09:24 Dose: Not Given Famotidine (Pepcid) 40 mg PO HS [facility] Last Admin: 03/20/18 21:06 Dose: 40 mg Furosemide (Lasix) 40 mg PO DAILY [facility] Last Admin: 03/20/18 09:24 Dose: Not Given Iron Sucrose 200 mg/ Sodium (Chloride) 110 mls @ 110 mls/hr IVPB DAILY [facility] Stop: 03/23/18 10:46 Last Admin: 03/20/18 09:31 Dose: 110 mls/hr Levothyroxine Sodium (Synthroid) 175 mcg PO DAILY@0630 [facility] Last Admin: 03/20/18 05:48 Dose: 175 mcg Lisinopril (Zestril) 20 mg PO DAILY [facility] Last Admin: 03/20/18 09:24 Dose: Not Given Magnesium Oxide (Mag-Ox) 400 mg PO DAILY [facility] Last Admin: 03/20/18 09:24 Dose: Not Given Pantoprazole Sodium (Protonix Ec Tab) 40 mg PO BID [facility] Last Admin: 03/20/18 16:47 Dose: 40 mg Pramipexole Dihydrochloride (Mirapex) 0.5 mg PO HS [facility] Last Admin: 03/20/18 21:06 Dose: 0.5 mg Spironolactone (Aldactone) 50 mg PO BID [facility] Last Admin: 03/20/18 16:46 Dose: 50 mg Sucralfate (Carafate Oral Susp) 1 gm PO QID [facility] Last Admin: 03/20/18 21:06 Dose: 1 gm Zolpidem Tartrate (Ambien) 5 mg PO HS [facility] Last Admin: 03/20/18 23:12 Dose: 5 mg - Labs Labs: 03/20/18 09:50 03/19/18 05:15 PT 13.4 Seconds (9.8-13.1) H 03/18/18 02:58 INR 1.2 03/18/18 02:58 APTT 31.8 Seconds (25.6-37.1) 03/18/18 02:58 - Head Exam Head Exam: ATRAUMATIC - Eye Exam Eye Exam: Normal appearance - ENT Exam ENT Exam: Mucous Membranes Dry - Respiratory Exam Respiratory Exam: NORMAL BREATHING PATTERN - Cardiovascular Exam Cardiovascular Exam: +S1, +S2 - GI/Abdominal Exam GI & Abdominal Exam: Normal Bowel Sounds Assessment and Plan (1) Pancytopenia Assessment & Plan: prior iron deficiency; will check ferritin transfusion support and start IV iron imaging suggestive of liver cirrhosis with portal HTN and splenomegaly; likely splenic sequestration GI evaluation hepatitis panel negative last month will add HIV Status: Chronic (2) History of colon cancer Assessment & Plan: s/p surgery s/p adjuvant chemotherapy with Dr. Jay Status: Acute
[2018-03-21 04:20] VITALS: O2SAT 98
[2018-03-21] MEDS: Levothyroxine 175 MCG TAB PO SCH (06:59)
[2018-03-21] MEDS: Pantoprazole 40 mg EC Tab PO SCH (08:22)
[2018-03-21] MEDS: Magnesium Oxide 400 mg Tab UD PO SCH (08:24)
[2018-03-21] MEDS: Sucralfate 1 gm/10 ml Oral Susp UD PO SCH ×2 (08:25→13:00)
[2018-03-21 11:56] LABS: HEMOGLOBIN 9.3 g/dL (12.0-16.0); MEAN CELL VOLUME 89.4 fl (81.0-99.0); MEAN CORPUSCULAR HEMOGLOBIN 28.3 pg (27.0-31.0); MEAN CORPUSCULAR HGB CONC 31.7 g/dL (33.0-37.0); RBC 3.29 Mil/uL (3.80-5.20); RED CELL DISTRIBUTION WIDTH 17.1 % (11.5-14.5); WHITE BLOOD COUNT 3.6 K/uL (4.8-10.8)
[2018-03-21 12:19] VITALS: BP 110/64; PULSE 83; RESP 20; TEMP 97.9
--- NOTE | 2018-03-21 14:17 | PN ---
DATE: 03/21/2018 SUBJECTIVE: The patient is seen and examined. The patient seen for Dr. Quispe while he is away. The patient feels okay. Denies any chest pain. No shortness of breath. Also denies any abdominal pain and gross bleeding. PHYSICAL EXAMINATION: GENERAL: The patient is in no acute distress. VITAL SIGNS: Stable. HEART: S1 and S2, normal and regular. LUNGS: Good bilateral air exchange. ABDOMEN: Soft, nontender. EXTREMITIES: No edema. No calf swelling. No tenderness. No acute ischemia. MOTHER SUPERIOR: Exam is essentially unchanged. DIAGNOSTIC DATA: Available diagnostic data reviewed. Telemetry monitoring does not reveal significant arrhythmias. ASSESSMENT AND PLAN: Overall, the patient's general medical condition is stable. Plan as ordered. Norm Hull MD
== END 2018-03-21 16:09 | disposition home health service (06) | DRG 182 ==
LOC: H.ER 01:05 → H.ERHOLD 03:55 → H.TEL 09:24
PROVIDERS: ADMIT Family Medicine; ATTEND Family Medicine
PROC: 30233N1 Transfusion of Nonautologous Red Blood Cells into Peripheral Vein, Percutaneous Approach (ICD-10-PCS; principal; 2018-03-18)
PROC: 0DJD8ZZ Inspection of Lower Intestinal Tract, Via Natural or Artificial Opening Endoscopic (ICD-10-PCS; 2018-03-19)
PROC: 0DB68ZX Excision of Stomach, Via Natural or Artificial Opening Endoscopic, Diagnostic (ICD-10-PCS; 2018-03-19)
PROC: 0DB58ZX Excision of Esophagus, Via Natural or Artificial Opening Endoscopic, Diagnostic (ICD-10-PCS; 2018-03-19 09:00)
PROC: 02HV33Z Insertion of Infusion Device into Superior Vena Cava, Percutaneous Approach (ICD-10-PCS; 2018-03-20)
DX: K20.9 Esophagitis, unspecified (principal); D61.818 Other pancytopenia; J44.9 Chronic obstructive pulmonary disease, unspecified; K74.60 Unspecified cirrhosis of liver; R18.8 Other ascites; D50.9 Iron deficiency anemia, unspecified; K29.50 Unspecified chronic gastritis without bleeding; K22.8 Other specified diseases of esophagus; K57.30 Diverticulosis of large intestine without perforation or abscess without bleeding; K64.8 Other hemorrhoids; F32.9 Major depressive disorder, single episode, unspecified; E11.9 Type 2 diabetes mellitus without complications; I10 Essential (primary) hypertension; E78.00 Pure hypercholesterolemia, unspecified; E78.5 Hyperlipidemia, unspecified; E03.9 Hypothyroidism, unspecified; Z85.038 Personal history of other malignant neoplasm of large intestine; R53.81 Other malaise; K76.6 Portal hypertension; R16.1 Splenomegaly, not elsewhere classified

== ENCOUNTER 2018-04-10 18:19 | Inpatient (IN) | payer OTHER ==
[2018-04-10 18:19] VITALS: BMI 40.1
[2018-04-10 19:25] LABS: BASO % 0.4 % (0.0-2.0); EOS # 0.1 K/uL (0.0-0.7); EOS % 4.1 % (0.0-4.0); LYMPH # 0.5 K/uL (1.0-4.3); LYMPH % 21.3 % (20.0-40.0); MEAN CORPUSCULAR HEMOGLOBIN 28.1 pg (27.0-31.0); MEAN CORPUSCULAR HGB CONC 31.3 g/dL (33.0-37.0); MEAN PLATELET VOLUME 10.6 fl (7.2-11.7); MONO # 0.1 K/uL (0.0-0.8); MONO % 6.5 % (0.0-10.0); NEUT # 1.5 K/uL (1.8-7.0); NEUT % 67.7 % (50.0-75.0); RBC 1.97 Mil/uL (3.80-5.20); RED CELL DISTRIBUTION WIDTH 18.2 % (11.5-14.5); WHITE BLOOD COUNT 2.3 K/uL (4.8-10.8)
[2018-04-10 19:27] LABS: IRON 11 ug/dL (37-170)
[2018-04-10 19:34] LABS: ALB/GLOB RATIO 0.9 (1.0-2.1); ALT/SGPT 25 U/L (9-52); AST/SGOT 30 U/L (14-36); BLOOD UREA NITROGEN 11 mg/dl (7-17); CALCIUM 8.2 mg/dL (8.4-10.2); GFR NON-AFRICAN AMERICAN > 60; HEMOGLOBIN 5.5 g/dL (12.0-16.0)
[2018-04-10 19:36] LABS: % IRON SATURATION 3 % (20-55); TOTAL IRON BINDING CAPACITY 380 ug/dL (250-450)
[2018-04-10 19:37] LABS: INR 1.2; PROTHROMBIN TIME 13.6 Seconds (9.8-13.1)
[2018-04-10 19:41] LABS: PARTIAL THROMBOPLASTIN TIME 26.3 Seconds (25.6-37.1)
[2018-04-10 20:05] LABS: FERRITIN 28.4 ng/Ml (11.1-264.0)
--- NOTE | 2018-04-10 21:00 | ED PDOC ---
HPI: General Adult Time Seen by Provider: 04/10/18 18:28 Chief Complaint (Nursing): Abnormal Labs Chief Complaint (Provider): Weakness History Per: Patient History/Exam Limitations: no limitations Onset/Duration Of Symptoms: Days (x7) Current Symptoms Are (Timing): Still Present Additional Complaint(s): Loan Orozco, a 62 year old female with a past medical history of anemia, presents to the ED for progressive weakness ongoing for the past week associated with shortness of breath upon exertion, palpitations, and black stool intermittently. Patient states symptoms feels similar to severe anemic condition in past. Patient was evaluated by her gastrointestinal doctor yesterday with labs performed then advised to go to ED upon receiving the results earlier today. She states being compliant with medications. Patient denies chest pain, nosebleed, or dental bleeding. PCP: Dr. Sravan Yepez Past Medical History Reviewed: Historical Data, Nursing Documentation, Vital Signs Vital Signs: Last Vital Signs Temp 98 F 04/10/18 18:27 Pulse 87 04/10/18 20:05 Resp 15 04/10/18 20:05 BP 123/66 04/10/18 20:05 Pulse Ox 100 04/10/18 20:05 - Medical History PMH: Anemia, Anxiety, Arthritis, Asthma, COPD, Depression, Diabetes, HTN, Hypercholesterolemia, Hyperlipidemia, Peripheral Edema Denies: Bronchitis, Hepatitis, HIV, Hyperthyroidism, Hypothyroidism, Chronic Kidney Disease, Seizures, Sexually Transmitted Disease - Surgical History Surgical History: Appendectomy, Cholecystectomy, Hernia Repair Denies: Pacemaker - Family History Family History: States: Hypertension - Immunization History Hx Tetanus Toxoid Vaccination: No Hx Influenza Vaccination: Yes Hx Pneumococcal Vaccination: No - Home Medications Home Medications: Ambulatory Orders Medication Instructions Recorded RX: Albuterol Sulfate [Ventolin 2 puff IH Q6 PRN 01/12/18 Hfa] RX: Atorvastatin [Lipitor] 20 mg PO DAILY 01/12/18 RX: Cyanocobalamin [Vitamin B12 1,000 mcg PO DAILY 01/12/18 1000 mcg Tab] RX: Docusate Sodium [Camacho' 100 mg PO BID 01/12/18 Laxative] RX: Ferrous Sulfate [Feosol] 325 mg PO TID 01/12/18 RX: Gabapentin [Neurontin] 300 mg PO Q8 01/12/18 RX: Insulin Aspart Prot/Insuln Asp 15 unit SC BRK 01/12/18 [Novolog Mix 70-30 Vial] RX: Insulin Glargine,Hum.rec.anlog 34 unit SC BID 01/12/18 [Basaglar Kwikpen U-100] RX: Lisinopril [Zestril] 20 mg PO DAILY 01/12/18 RX: Mirtazapine [Remeron] 30 mg PO HS 01/12/18 RX: Pramipexole [Mirapex] 0.5 mg PO HS 01/12/18 RX: Zolpidem [Ambien] 5 mg PO HS 01/12/18 RX: Levothyroxine [Synthroid] 175 mcg PO DAILY@0630 tab 01/15/18 RX: Sucralfate [Carafate Oral Susp] 1 gm PO QID #30 udc 02/16/18 RX: Furosemide 40 mg PO DAILY #30 tablet 03/19/18 RX: Pantoprazole [Protonix EC Tab] 40 mg PO BID #60 ect 03/19/18 RX: Spironolactone [Aldactone] 50 mg PO BID #60 tab 03/19/18 RX: Famotidine 40 mg PO DAILY #30 tablet 03/20/18 - Allergies Allergies/Adverse Reactions: Allergies Allergy/AdvReac Type Severity Reaction Status Date / Time No Known Allergies Allergy Verified 04/10/18 18:27 Review of Systems ROS Statement: Except As Marked, All Systems Reviewed And Found Negative Constitutional: Positive for: Weakness (progressive) ENT: Negative for: Nose Discharge (bleeding), Other (dental bleeding) Cardiovascular: Positive for: Palpitations. Negative for: Chest Pain Respiratory: Positive for: Shortness of Breath Gastrointestinal: Positive for: Melena Physical Exam - Reviewed Nursing Documentation Reviewed: Yes Vital Signs Reviewed: Yes - Physical Exam Appears: Positive for: No Acute Distress Head Exam: Positive for: ATRAUMATIC, NORMOCEPHALIC Skin: Positive for: Warm, Dry, Pallor Eye Exam: Positive for: EOMI, PERRL ENT: Positive for: Pharynx Is (clear) Neck: Positive for: Painless ROM, Supple Cardiovascular/Chest: Positive for: Regular Rate, Rhythm. Negative for: Murmur Respiratory: Positive for: Normal Breath Sounds. Negative for: Respiratory Distress Gastrointestinal/Abdominal: Positive for: Tenderness (mild diffuse upon palpitation). Negative for: Mass, Distended Back: Positive for: Normal Inspection. Negative for: Muscle Spasm Extremity: Positive for: Normal ROM. Negative for: Deformity Lymphatic: Negative for: Adenopathy Neurologic/Psych: Positive for: Alert, Mood/Affect (tired). Negative for: Motor/Sensory Deficits - Laboratory Results Result Diagrams: 04/11/18 10:15 04/11/18 10:15 - ECG O2 Sat by Pulse Oximetry: 100 Medical Decision Making Medical Decision Making: Time 2057 Initial Impression: Anemia Initial Plan: --labs --EKG --Chest x-ray Marked anemia on labs. Transfusion ordered. SILVINO Coombs for PMD Dr Hillman. Consult orders placed. SILVINO pt risks/benefits of transfusion and consent signed. ------- Scribe Attestation: Documented by Morgan Peralta acting as a scribe for Gauri Hensley MD Provider Scribe Attestation: All medical record entries made by the Scribe were at my direction and personally dictated by me. I have reviewed the chart and agree that the record accurately reflects my personal performance of the history, physical exam, medical decision making, and the department course for this patient. I have also personally directed, reviewed, and agree with the discharge instructions and di sposition. Disposition - Clinical Impression Clinical Impression: GI bleed, Anemia, Iron deficiency Counseled Patient/Family Regarding: Studies Performed, Diagnosis - Disposition Disposition Time: 22:00 Condition: GUARDED - Pt Status Changed To: Hospital Disposition Of: Observation - POA Present On Arrival: None
[2018-04-10] MEDS ORDERED: Albuterol HFA 90 mcg/actuation (8 g) IH PRN (23:58)
[2018-04-11] MEDS ORDERED: Influenza Vaccine (5 YR UP)/PF 60 MCG/0.5 ML SYR IM ONE (06:00)
[2018-04-11] MEDS: Levothyroxine 175 MCG TAB PO SCH (06:09)
[2018-04-11] MEDS: Insulin Lispro (humaLOG) 100 Units/ml Inj SC SCH ×4 (06:47→22:08)
[2018-04-11] MEDS ORDERED: INSULN ASP SC SCH (08:00)
[2018-04-11] MEDS ORDERED: INSULIN ASPART PROT SC SCH (08:00)
[2018-04-11] MEDS ORDERED: FAMOTIDINE 40 MG PO SCH (09:00)
--- NOTE | 2018-04-11 09:29 | RAD ---
Date of service: 04/10/2018 HISTORY: anemia COMPARISON: Comparison chest dated the 03/18/2018 FINDINGS: LUNGS: Mild bibasilar atelectasis and suspected small effusions.. The interstitial markings are also increased and coarsened-nonspecific. Rule out sequela of reactive/inflammatory airway disease or viral illness. PLEURA: As above. No pneumothorax apparent. CARDIOVASCULAR: No aortic atherosclerotic calcification present Cardiomegaly.. OSSEOUS STRUCTURES: No significant abnormalities. VISUALIZED UPPER ABDOMEN: Normal. OTHER FINDINGS: None. IMPRESSION: Mild bibasilar atelectasis and suspected small effusions.. The interstitial markings are also increased and coarsened-nonspecific. Rule out sequela of reactive/inflammatory airway disease or viral illness.
[2018-04-11] MEDS: Insulin Lispro Mix 75/25 100 units/ml (HumaLog) 10ml SC SCH (09:39)
[2018-04-11] MEDS: Sucralfate 1 gm/10 ml Oral Susp UD PO SCH ×5 (09:42→22:08)
[2018-04-11] MEDS: Pantoprazole 40 mg EC Tab PO SCH ×2 (09:44→19:42)
[2018-04-11 10:48] LABS: HEMOGLOBIN 6.6 g/dL (12.0-16.0); MEAN CELL VOLUME 88.3 fl (81.0-99.0); MEAN CORPUSCULAR HEMOGLOBIN 28.1 pg (27.0-31.0); MEAN CORPUSCULAR HGB CONC 31.8 g/dL (33.0-37.0); RBC 2.35 Mil/uL (3.80-5.20); RED CELL DISTRIBUTION WIDTH 17.5 % (11.5-14.5); WHITE BLOOD COUNT 2.8 K/uL (4.8-10.8)
[2018-04-11 11:20] LABS: ALB/GLOB RATIO 0.8 (1.0-2.1); ALBUMIN 2.7 g/dL (3.5-5.0); ALT/SGPT 25 U/L (9-52); AST/SGOT 33 U/L (14-36); BLOOD UREA NITROGEN 11 mg/dl (7-17); CALCIUM 7.7 mg/dL (8.4-10.2); GFR NON-AFRICAN AMERICAN > 60
--- NOTE | 2018-04-11 11:59 | CARD ---
APPROVED REPORT Date of service: 04/10/2018 EKG Measurement Heart [id number] <Conclusion> Normal sinus rhythm ST & T wave abnormality, consider inferolateral ischemia Prolonged QT Abnormal ECG
--- NOTE | 2018-04-11 17:32 | CP.PCM.CON ---
History of Present Illness - History of Present Illness History of Present Illness: 62 year old female with a history of DM, HTN, HL, hypothyroid, colon cancer s/p surgery and adjuvant chemotherapy in 2005, presenting with palpitations and abdominal pain, dmitted with symptomatic anemia with hgb of 6.1 The patient is known to me from her prior hospitalization about 1 month ago. At the time she was GI bleeding and found to have iron deficiency anemia. She was treated with PRBC transfusion and IV iron. She notes she has been having dark black stools associated with abdominal pain. Past medical history: DM, HTN, HL, hypothyroid, colon cancer s/p surgery and adjuvant chemotherapy in 2005. Past surgical history: hemicolectomy, cholecystectomy, hernia repair Family history: Denies hematologic and oncologic problems Social history: Denies tobacco, alcohol, and illicit drug use. Allergies: NKA Review of systems: All remaining review of systems including HEENT, cardiovascular, respiratory, gastrointestinal, genitourinary, musculoskeletal, dermatologic, neurologic, and psychiatric are negative unless mentioned in the HPI. Past Patient History - Past Medical History & Family History Past Medical History?: Yes - Past Social History Smoking Status: Never Smoked - CARDIAC Hx Cardiac Disorders: Yes Hx Hypercholesterolemia: Yes Hx Hypertension: Yes Hx Peripheral Edema: Yes - PULMONARY Hx Respiratory Disorders: Yes Hx Asthma: Yes Hx Bronchitis: No Hx Chronic Obstructive Pulmonary Disease (COPD): Yes - NEUROLOGICAL Hx Neurological Disorder: No Hx Seizures: No - HEENT Hx HEENT Problems: Yes (blind in left eye, cataract in right eye, glaucoma in left eye, epistaxis) Hx Cataracts: Yes - RENAL Hx Chronic Kidney Disease: No - ENDOCRINE/METABOLIC Hx Endocrine Disorders: Yes Hx Diabetes Mellitus Type 2: Yes - HEMATOLOGICAL/ONCOLOGICAL Hx AIDS: No Hx Human Immunodeficiency Virus (HIV): No - INTEGUMENTARY Hx Dermatological Problems: No - MUSCULOSKELETAL/RHEUMATOLOGICAL Hx Musculoskeletal Disorders: No Hx Falls: No - GASTROINTESTINAL Hx Gastrointestinal Disorders: Yes Hx Bowel Surgery: Yes (SBO) Hx Colostomy: Yes (reversed 2009) Hx Gastroesophageal Reflux: Yes Hx Nausea: Yes Hx Vomiting: Yes Other/Comment: colon ca - GENITOURINARY/GYNECOLOGICAL Hx Genitourinary Disorders: No Hx Sexually Transmitted Disorders: No - PSYCHIATRIC Hx Psychophysiologic Disorder: Yes Hx Anxiety: Yes Hx Depression: Yes Hx Substance Use: No - SURGICAL HISTORY Hx Surgeries: Yes Hx Appendectomy: Yes Hx Cholecystectomy: Yes Other/Comment: colostomy reverse - ANESTHESIA Hx Anesthesia: Yes Hx Anesthesia Reactions: No Hx Malignant Hyperthermia: No Meds Allergies/Adverse Reactions: Allergies Allergy/AdvReac Type Severity Reaction Status Date / Time No Known Allergies Allergy Verified 04/10/18 18:27 - Medications Medications: Current Medications Acetaminophen (Tylenol 325mg Tab) 650 mg PO Q6 PRN PRN Reason: Headache Last Admin: 04/11/18 00:27 Dose: 650 mg Albuterol (Ventolin Hfa 90 Mcg/Actuation (8 G)) 2 puff IH Q6 PRN PRN Reason: Shortness of Breath Atorvastatin Calcium (Lipitor) 20 mg PO DAILY [facility] Last Admin: 04/11/18 09:44 Dose: 20 mg Cyanocobalamin (Vitamin B12 1000 Mcg Tab) 1,000 mcg PO DAILY [facility] Last Admin: 04/11/18 09:44 Dose: 1,000 mcg Docusate Sodium (Colace) 100 mg PO BID [facility] Last Admin: 04/11/18 16:53 Dose: Not Given Famotidine (Pepcid) 40 mg PO DAILY [facility] Last Admin: 04/11/18 09:44 Dose: 40 mg Ferrous Sulfate (Feosol) 325 mg PO TID [facility] Last Admin: 04/11/18 16:52 Dose: 325 mg Furosemide (Lasix) 40 mg PO DAILY [facility] Last Admin: 04/11/18 09:43 Dose: 40 mg Gabapentin (Neurontin) 300 mg PO Q8 [facility] Last Admin: 04/11/18 16:55 Dose: 300 mg Home Med (Insulin Glargine,Hum.Rec.Anlog [Abiodun Lacey U-[id number]]) 34 unit SC BID [facility] Insulin Human Lispro (Humalog) 0 units SC ACHS [facility]; Protocol Last Admin: 04/11/18 16:54 Dose: Not Given Insulin Lispro Protam/Lispro Human (Humalog Mix 75/25) 15 units SC BRK [facility] Last Admin: 04/11/18 09:39 Dose: 15 units Levothyroxine Sodium (Synthroid) 175 mcg PO DAILY@0630 [facility] Last Admin: 04/11/18 06:09 Dose: 175 mcg Lisinopril (Zestril) 20 mg PO DAILY [facility] Last Admin: 04/11/18 09:00 Dose: 20 mg Mirtazapine (Remeron) 30 mg PO HS [facility] Last Admin: 04/11/18 00:28 Dose: 30 mg Pantoprazole Sodium (Protonix Ec Tab) 40 mg PO BID [facility] Last Admin: 04/11/18 09:44 Dose: 40 mg Pramipexole Dihydrochloride (Mirapex) 0.5 mg PO [facility] Last Admin: 04/11/18 00:28 Dose: 0.5 mg Spironolactone (Aldactone) 50 mg PO BID [facility] Last Admin: 04/11/18 16:56 Dose: 50 mg Sucralfate (Carafate Oral Susp) 1 gm PO QID [facility] Last Admin: 04/11/18 16:58 Dose: Not Given Zolpidem Tartrate (Ambien) 5 mg PO [facility] Last Admin: 04/11/18 00:27 Dose: 5 mg Physical Exam - Head Exam Head Exam: ATRAUMATIC - Eye Exam Eye Exam: Normal appearance - ENT Exam ENT Exam: Mucous Membranes Dry - Respiratory Exam Respiratory Exam: NORMAL BREATHING PATTERN - Cardiovascular Exam Cardiovascular Exam: +S1, +S2 - GI/Abdominal Exam GI & Abdominal Exam: Normal Bowel Sounds - Extremities Exam Extremities exam: Positive for: normal inspection - Neurological Exam Neurological exam: Oriented x3 - Psychiatric Exam Psychiatric exam: Normal Affect, Normal Mood - Skin Skin Exam: Warm Results - Vital Signs Recent Vital Signs: Last Vital Signs Temp 98.8 F 04/11/18 12:57 Pulse 84 04/11/18 12:57 Resp 20 04/11/18 12:57 BP 106/51 L 04/11/18 12:57 Pulse Ox 97 04/11/18 12:57 - Labs Result Diagrams: 04/12/18 06:30 04/12/18 06:30 Labs: Laboratory Results - last 24 hr 04/10/18 04/10/18 04/10/18 18:50 18:50 18:50 WBC 2.3 L RBC 1.97 L Hgb 5.5 L* D Hct 17.7 L MCV 90.0 MCH 28.1 MCHC 31.3 L RDW 18.2 H Plt Count 95 L MPV 10.6 Neut % (Auto) 67.7 Lymph % (Auto) 21.3 [place] % (Auto) 6.5 Eos % (Auto) 4.1 H Baso % (Auto) 0.4 Neut # (Auto) 1.5 L Lymph # (Auto) 0.5 L [place] # (Auto) 0.1 Eos # (Auto) 0.1 Baso # (Auto) 0.0 PT INR APTT Sodium 139 Potassium 3.6 Chloride 109 H Carbon Dioxide 24 Anion Gap 10 BUN 11 Creatinine 0.5 L Est GFR ( Amer) > 60 Est GFR (Non-Af Amer) > 60 POC Glucose (mg/dL) Random Glucose 226 H Calcium 8.2 L Iron 11 L TIBC 380 % Saturation 3 L Ferritin 28.4 Total Bilirubin 0.6 AST 30 ALT 25 Alkaline Phosphatase 86 Total Protein 6.3 Albumin 3.0 L Globulin 3.3 Albumin/Globulin Ratio 0.9 L Stool Occult Blood Blood Type Antibody Screen Crossmatch BBK History Checked 04/10/18 04/10/18 04/10/18 18:50 18:50 19:00 WBC RBC Hgb Hct MCV MCH MCHC RDW Plt Count MPV Neut % (Auto) Lymph % (Auto) [place] % (Auto) Eos % (Auto) Baso % (Auto) Neut # (Auto) Lymph # (Auto) [place] # (Auto) Eos # (Auto) Baso # (Auto) PT 13.6 H INR 1.2 APTT 26.3 Sodium Potassium Chloride Carbon Dioxide Anion Gap BUN Creatinine Est GFR ( Amer) Est GFR (Non-Af Amer) POC Glucose (mg/dL) Random Glucose Calcium Iron TIBC % Saturation Ferritin Total Bilirubin AST ALT Alkaline Phosphatase Total Protein Albumin Globulin Albumin/Globulin Ratio Stool Occult Blood Negative Blood Type A POSITIVE Antibody Screen Negative Crossmatch See Detail BBK History Checked Patient has bt 04/10/18 04/11/18 04/11/18 22:17 05:06 10:15 WBC 2.8 L RBC 2.35 L Hgb 6.6 L Hct 20.7 L MCV 88.3 MCH 28.1 MCHC 31.8 L RDW 17.5 H Plt Count 95 L MPV Neut % (Auto) Lymph % (Auto) [place] % (Auto) Eos % (Auto) Baso % (Auto) Neut # (Auto) Lymph # (Auto) [place] # (Auto) Eos # (Auto) Baso # (Auto) PT INR APTT Sodium Potassium Chloride Carbon Dioxide Anion Gap BUN Creatinine Est GFR ( Amer) Est GFR (Non-Af Amer) POC Glucose (mg/dL) 187 H 146 H Random Glucose Calcium Iron TIBC % Saturation Ferritin Total Bilirubin AST ALT Alkaline Phosphatase Total Protein Albumin Globulin Albumin/Globulin Ratio Stool Occult Blood Blood Type Antibody Screen Crossmatch BBK History Checked 04/11/18 04/11/18 04/11/18 10:15 12:42 16:21 WBC RBC Hgb Hct MCV MCH MCHC RDW Plt Count MPV Neut % (Auto) Lymph % (Auto) [place] % (Auto) Eos % (Auto) Baso % (Auto) Neut # (Auto) Lymph # (Auto) [place] # (Auto) Eos # (Auto) Baso # (Auto) PT INR APTT Sodium 140 Potassium 3.7 Chloride 109 H Carbon Dioxide 25 Anion Gap 10 BUN 11 Creatinine 0.6 L Est GFR ( Amer) > 60 Est GFR (Non-Af Amer) > 60 POC Glucose (mg/dL) 159 H 134 H Random Glucose 222 H Calcium 7.7 L Iron TIBC % Saturation Ferritin Total Bilirubin 2.7 H AST 33 ALT 25 Alkaline Phosphatase 75 Total Protein 6.0 L Albumin 2.7 L Globulin 3.2 Albumin/Globulin Ratio 0.8 L Stool Occult Blood Blood Type Antibody Screen Crossmatch BBK History Checked Assessment & Plan (1) Anemia Assessment and Plan: prior iron deficiency; will check ferritin transfusion support and start IV iron imaging suggestive of liver cirrhosis with portal HTN and splenomegaly; likely splenic sequestration GI evaluation Status: Chronic (2) History of colon cancer Assessment and Plan: s/p adjuvant chemotherapy with Dr. Jay Thank you for this interesting consult. Status: Acute
--- NOTE | 2018-04-11 23:48 | CP.PCM.CON ---
History of Present Illness - History of Present Illness History of Present Illness: Patient with one of multiple admissions for iron deficiency anemia. Had been seen earlier this week for fatigue, CBC was done and showed profound anemia, and patient told to go to ER. Has history of cirrhosis Review of Systems - Constitutional Constitutional: absent: Chills - EENT Eyes: absent: Blind Spots Ears: absent: Decreased Hearing Nose/Mouth/Throat: absent: Epistaxis - Cardiovascular Cardiovascular: absent: Chest Pain - Respiratory Respiratory: absent: Dyspnea - Gastrointestinal Gastrointestinal: absent: Abdominal Pain Past Patient History - Past Medical History & Family History Past Medical History?: Yes - Past Social History Smoking Status: Never Smoked - CARDIAC Hx Hypercholesterolemia: Yes Hx Hypertension: Yes Hx Pacemaker: No Hx Peripheral Edema: Yes - PULMONARY Hx Asthma: Yes Hx Bronchitis: No Hx Chronic Obstructive Pulmonary Disease (COPD): Yes - NEUROLOGICAL Hx Seizures: No - HEENT Hx HEENT Problems: Yes (blind in left eye, cataract in right eye, glaucoma in left eye, epistaxis) Hx Cataracts: Yes - RENAL Hx Chronic Kidney Disease: No - ENDOCRINE/METABOLIC Hx Hyperthyroidism: No Hx Hypothyroidism: No - HEMATOLOGICAL/ONCOLOGICAL Hx Anemia: Yes Hx Human Immunodeficiency Virus (HIV): No - INTEGUMENTARY Hx Dermatological Problems: No - MUSCULOSKELETAL/RHEUMATOLOGICAL Hx Arthritis: Yes - GASTROINTESTINAL Hx Gastrointestinal Disorders: Yes Hx Bowel Surgery: Yes (SBO) Hx Colostomy: Yes (reversed 2009) Hx Gastroesophageal Reflux: Yes Hx Nausea: Yes Hx Vomiting: Yes Other/Comment: colon ca - GENITOURINARY/GYNECOLOGICAL Hx Sexually Transmitted Disorders: No - PSYCHIATRIC Hx Anxiety: Yes Hx Depression: Yes - SURGICAL HISTORY Hx Appendectomy: Yes Hx Cholecystectomy: Yes - ANESTHESIA Hx Anesthesia: Yes Hx Anesthesia Reactions: No Hx Malignant Hyperthermia: No Meds Allergies/Adverse Reactions: Allergies Allergy/AdvReac Type Severity Reaction Status Date / Time No Known Allergies Allergy Verified 04/10/18 18:27 - Medications Medications: Current Medications Acetaminophen (Tylenol 325mg Tab) 650 mg PO Q6 PRN PRN Reason: Headache Last Admin: 04/11/18 00:27 Dose: 650 mg Albuterol (Ventolin Hfa 90 Mcg/Actuation (8 G)) 2 puff IH Q6 PRN PRN Reason: Shortness of Breath Atorvastatin Calcium (Lipitor) 20 mg PO DAILY [facility] Last Admin: 04/11/18 09:44 Dose: 20 mg Cyanocobalamin (Vitamin B12 1000 Mcg Tab) 1,000 mcg PO DAILY [facility] Last Admin: 04/11/18 09:44 Dose: 1,000 mcg Docusate Sodium (Colace) 100 mg PO BID [facility] Last Admin: 04/11/18 16:53 Dose: Not Given Famotidine (Pepcid) 40 mg PO DAILY [facility] Last Admin: 04/11/18 09:44 Dose: 40 mg Ferrous Sulfate (Feosol) 325 mg PO TID [facility] Last Admin: 04/11/18 16:52 Dose: 325 mg Furosemide (Lasix) 40 mg PO DAILY [facility] Last Admin: 04/11/18 09:43 Dose: 40 mg Gabapentin (Neurontin) 300 mg PO Q8 [facility] Last Admin: 04/11/18 16:55 Dose: 300 mg Home Med (Insulin Glargine,Hum.Rec.Anlog [[place]want[place]lnohemi Kwikdarrel U-100]) 34 unit SC BID [facility] Iron Sucrose 200 mg/ Sodium (Chloride) 110 mls @ 110 mls/hr IVPB DAILY [facility] Stop: 04/16/18 18:01 Last Admin: 04/11/18 19:42 Dose: 110 mls/hr Insulin Human Lispro (Humalog) 0 units SC ACHS [facility]; Protocol Last Admin: 04/11/18 22:08 Dose: Not Given Insulin Lispro Protam/Lispro Human (Humalog Mix 75/25) 15 units SC BRK [facility] Last Admin: 04/11/18 09:39 Dose: 15 units Levothyroxine Sodium (Synthroid) 175 mcg PO DAILY@0630 [facility] Last Admin: 04/11/18 06:09 Dose: 175 mcg Lisinopril (Zestril) 20 mg PO DAILY [facility] Last Admin: 04/11/18 09:00 Dose: 20 mg Mirtazapine (Remeron) 30 mg PO HS [facility] Last Admin: 04/11/18 22:09 Dose: 30 mg Pantoprazole Sodium (Protonix Ec Tab) 40 mg PO BID [facility] Last Admin: 04/11/18 19:42 Dose: 40 mg Pramipexole Dihydrochloride (Mirapex) 0.5 mg PO HS [facility] Last Admin: 04/11/18 22:09 Dose: 0.5 mg Spironolactone (Aldactone) 50 mg PO BID [facility] Last Admin: 04/11/18 16:56 Dose: 50 mg Sucralfate (Carafate Oral Susp) 1 gm PO QID [facility] Last Admin: 04/11/18 22:08 Dose: Not Given Zolpidem Tartrate (Ambien) 5 mg PO HS PRN PRN Reason: insomia Physical Exam - Constitutional Appears: No Acute Distress - Head Exam Head Exam: ATRAUMATIC - Eye Exam Eye Exam: Normal appearance - ENT Exam ENT Exam: Normal Exam - Neck Exam Neck exam: Positive for: Normal Inspection - Respiratory Exam Respiratory Exam: Clear to Auscultation Bilateral - Cardiovascular Exam Cardiovascular Exam: REGULAR RHYTHM, +S1, +S2 - GI/Abdominal Exam GI & Abdominal Exam: Normal Bowel Sounds, Soft, Tenderness Additional comments: mild generalized tenderness Results - Vital Signs Recent Vital Signs: Last Vital Signs Temp 98.9 F 04/11/18 22:38 Pulse 86 04/11/18 22:38 Resp 18 04/11/18 22:38 BP 105/67 04/11/18 22:38 Pulse Ox 100 04/11/18 21:54 - Labs Result Diagrams: 04/11/18 10:15 04/11/18 10:15 Labs: Laboratory Results - last 24 hr 04/10/18 04/11/18 04/11/18 18:50 05:06 10:15 WBC 2.8 L RBC 2.35 L Hgb 6.6 L Hct 20.7 L MCV 88.3 MCH 28.1 MCHC 31.8 L RDW 17.5 H Plt Count 95 L Sodium Potassium Chloride Carbon Dioxide Anion Gap BUN Creatinine Est GFR ( Amer) Est GFR (Non-Af Amer) POC Glucose (mg/dL) 146 H Random Glucose Calcium Total Bilirubin AST ALT Alkaline Phosphatase Total Protein Albumin Globulin Albumin/Globulin Ratio Blood Type A POSITIVE Antibody Screen Negative Crossmatch See Detail BBK History Checked Patient has bt 04/11/18 04/11/18 04/11/18 10:15 12:42 16:21 WBC RBC Hgb Hct MCV MCH MCHC RDW Plt Count Sodium 140 Potassium 3.7 Chloride 109 H Carbon Dioxide 25 Anion Gap 10 BUN 11 Creatinine 0.6 L Est GFR ( Amer) > 60 Est GFR (Non-Af Amer) > 60 POC Glucose (mg/dL) 159 H 134 H Random Glucose 222 H Calcium 7.7 L Total Bilirubin 2.7 H AST 33 ALT 25 Alkaline Phosphatase 75 Total Protein 6.0 L Albumin 2.7 L Globulin 3.2 Albumin/Globulin Ratio 0.8 L Blood Type Antibody Screen Crossmatch BBK History Checked - Impressions Impression: Patient admitted with severe iron deficiency anemia. Has area in gastric cardia with marked hyperemia and vascular congestion. Treatment with PPI and sucralfate not successful. Patient currently receiving blood transfusion and iron infusion. EGD with possible argon coagulation Friday.
[2018-04-12] MEDS: Levothyroxine 175 MCG TAB PO SCH (06:42)
[2018-04-12 07:25] LABS: HEMOGLOBIN 8.4 g/dL (12.0-16.0); MEAN CORPUSCULAR HEMOGLOBIN 28.7 pg (27.0-31.0); RBC 2.94 Mil/uL (3.80-5.20); RED CELL DISTRIBUTION WIDTH 16.8 % (11.5-14.5); WHITE BLOOD COUNT 3.2 K/uL (4.8-10.8)
[2018-04-12 07:41] LABS: BLOOD UREA NITROGEN 10 mg/dl (7-17); CALCIUM 7.9 mg/dL (8.4-10.2); GFR NON-AFRICAN AMERICAN > 60
[2018-04-12] MEDS: Insulin Lispro (humaLOG) 100 Units/ml Inj SC SCH ×4 (08:00→22:31)
[2018-04-12] MEDS: Insulin Detemir 100 Units/ml Inj SC SCH ×2 (09:45→16:49)
[2018-04-12] MEDS: Sucralfate 1 gm/10 ml Oral Susp UD PO SCH ×5 (10:11→22:31)
[2018-04-12] MEDS: Insulin Lispro Mix 75/25 100 units/ml (HumaLog) 10ml SC SCH ×2 (10:14→10:22)
[2018-04-12] MEDS: Pantoprazole 40 mg EC Tab PO SCH ×2 (10:18→16:39)
--- NOTE | 2018-04-12 14:11 | CP.PCM.HP ---
History of Present Illness - History of Present Illness History of Present Illness: This is a 62 y/o female with hx of recurrent iron def anemia. She had multiple hospitalizations in the past for the same reason. She has a hx of HTN DM 2 cirrhosis and colon cancer and chemotherapy in 2005. She had GI bleed and iron def anemia earlier this year. She had two recent endoscopies. Present on Admission - Present on Admission Any Indicators Present on Admission: No History of DVT/PE: No History of Uncontrolled Diabetes: No Urinary Catheter: No Decubitus Ulcer Present: No Review of Systems - Gastrointestinal Gastrointestinal: Abdominal Pain Past Patient History - Past Medical History & Family History Past Medical History?: Yes - Past Social History Smoking Status: Never Smoked - CARDIAC Hx Hypercholesterolemia: Yes Hx Hypertension: Yes Hx Pacemaker: No Hx Peripheral Edema: Yes - PULMONARY Hx Asthma: Yes Hx Bronchitis: No Hx Chronic Obstructive Pulmonary Disease (COPD): Yes - NEUROLOGICAL Hx Seizures: No - HEENT Hx HEENT Problems: Yes (blind in left eye, cataract in right eye, glaucoma in l eft eye, epistaxis) Hx Cataracts: Yes - RENAL Hx Chronic Kidney Disease: No - ENDOCRINE/METABOLIC Hx Hyperthyroidism: No Hx Hypothyroidism: No - HEMATOLOGICAL/ONCOLOGICAL Hx Anemia: Yes Hx Human Immunodeficiency Virus (HIV): No - INTEGUMENTARY Hx Dermatological Problems: No - MUSCULOSKELETAL/RHEUMATOLOGICAL Hx Arthritis: Yes - GASTROINTESTINAL Hx Gastrointestinal Disorders: Yes Hx Bowel Surgery: Yes (SBO) Hx Colostomy: Yes (reversed 2009) Hx Gastroesophageal Reflux: Yes Hx Nausea: Yes Hx Vomiting: Yes Other/Comment: colon ca - GENITOURINARY/GYNECOLOGICAL Hx Sexually Transmitted Disorders: No - PSYCHIATRIC Hx Anxiety: Yes Hx Depression: Yes - SURGICAL HISTORY Hx Appendectomy: Yes Hx Cholecystectomy: Yes - ANESTHESIA Hx Anesthesia: Yes Hx Anesthesia Reactions: No Hx Malignant Hyperthermia: No Meds Allergies/Adverse Reactions: Allergies Allergy/AdvReac Type Severity Reaction Status Date / Time No Known Allergies Allergy Verified 04/10/18 18:27 Physical Exam - Head Exam Head Exam: NORMAL INSPECTION - Eye Exam Eye Exam: Normal appearance - ENT Exam ENT Exam: Mucous Membranes Moist - Respiratory Exam Respiratory Exam: Clear to Auscultation Bilateral - Cardiovascular Exam Cardiovascular Exam: REGULAR RHYTHM - GI/Abdominal Exam GI & Abdominal Exam: Normal Bowel Sounds, Tenderness - Psychiatric Exam Psychiatric exam: Normal Mood - Skin Skin Exam: Pallor Results - Vital Signs Recent Vital Signs: Last Vital Signs Temp 97.8 F 04/12/18 12:18 Pulse 77 04/12/18 12:18 Resp 20 04/12/18 12:18 BP 109/67 04/12/18 12:18 Pulse Ox 100 04/12/18 12:18 - Labs Result Diagrams: 04/12/18 06:30 04/13/18 04:20 Labs: Laboratory Results - last 24 hr 04/10/18 04/11/18 04/12/18 18:50 16:21 06:30 WBC 3.2 L RBC 2.94 L Hgb 8.4 L Hct 25.6 L MCV 87.0 MCH 28.7 MCHC 33.0 RDW 16.8 H Plt Count 92 L Sodium Potassium Chloride Carbon Dioxide Anion Gap BUN Creatinine Est GFR ( Amer) Est GFR (Non-Af Amer) POC Glucose (mg/dL) 134 H Random Glucose Calcium Blood Type A POSITIVE Antibody Screen Negative Crossmatch See Detail BBK History Checked Patient has bt 04/12/18 06:30 WBC RBC Hgb Hct MCV MCH MCHC RDW Plt Count Sodium 138 Potassium 3.5 L Chloride 107 Carbon Dioxide 25 Anion Gap 10 BUN 10 Creatinine 0.6 L Est GFR ( Amer) > 60 Est GFR (Non-Af Amer) > 60 POC Glucose (mg/dL) Random Glucose 137 H Calcium 7.9 L Blood Type Antibody Screen Crossmatch BBK History Checked Assessment & Plan (1) Iron deficiency Status: Acute (2) Gastritis Status: Acute (3) GI bleed Status: Acute (4) Hyperlipidemia Status: Chronic (5) Hypertension Status: Chronic (6) Pancytopenia Status: Acute - Assessment and Plan (Free Text) Plan: cont meds Cont tx hematology eval transfusion GI eval monitor cbc. antacid
--- NOTE | 2018-04-12 14:17 | CP.PCM.PN ---
Subjective - Date & Time of Evaluation Date of Evaluation: 04/12/18 Time of Evaluation: 14:16 - Subjective Subjective: Patient feels better today. Had received 4 units of PRBC and Hgb today is 8.4. Objective - Vital Signs/Intake and Output Vital Signs (last 24 hours): Temp Pulse Resp BP Pulse Ox 97.8 F 77 20 109/67 100 04/12/18 12:18 04/12/18 12:18 04/12/18 12:18 04/12/18 12:18 04/12/18 12:18 Intake and Output: 04/12/18 04/12/18 06:59 18:59 Intake Total 650 Balance 650 - Medications Medications: Current Medications Acetaminophen (Tylenol 325mg Tab) 650 mg PO Q6 PRN PRN Reason: Headache Last Admin: 04/12/18 06:00 Dose: 650 mg Albuterol (Ventolin Hfa 90 Mcg/Actuation (8 G)) 2 puff IH Q6 PRN PRN Reason: Shortness of Breath Atorvastatin Calcium (Lipitor) 20 mg PO DAILY [facility] Last Admin: 04/12/18 10:17 Dose: 20 mg Cyanocobalamin (Vitamin B12 1000 Mcg Tab) 1,000 mcg PO DAILY [facility] Last Admin: 04/12/18 10:19 Dose: 1,000 mcg Docusate Sodium (Colace) 100 mg PO BID [facility] Last Admin: 04/12/18 10:11 Dose: 100 mg Famotidine (Pepcid) 40 mg PO DAILY [facility] Last Admin: 04/12/18 10:17 Dose: 40 mg Ferrous Sulfate (Feosol) 325 mg PO TID [facility] Last Admin: 04/12/18 12:37 Dose: 325 mg Furosemide (Lasix) 40 mg PO DAILY [facility] Last Admin: 04/12/18 10:16 Dose: 40 mg Gabapentin (Neurontin) 300 mg PO Q8 [facility] Last Admin: 04/12/18 10:17 Dose: 300 mg Iron Sucrose 200 mg/ Sodium (Chloride) 110 mls @ 110 mls/hr IVPB DAILY [facility] Stop: 04/16/18 18:01 Last Admin: 04/12/18 10:18 Dose: 110 mls/hr Lactated Ringer's (Lactated Ringer's) 1,000 mls @ 75 mls/hr IV .[id number] [facility] Insulin Detemir (Levemir) 34 units SC BID [facility] Last Admin: 04/12/18 09:45 Dose: Not Given Insulin Human Lispro (Humalog) 0 units SC ACHS [facility]; Protocol Last Admin: 04/12/18 12:38 Dose: 2 units Insulin Lispro Protam/Lispro Human (Humalog Mix 75/25) 15 units SC BRK [facility] Last Admin: 04/12/18 10:22 Dose: Not Given Levothyroxine Sodium (Synthroid) 175 mcg PO DAILY@0630 [facility] Last Admin: 04/12/18 06:42 Dose: 175 mcg Lisinopril (Zestril) 20 mg PO DAILY [facility] Last Admin: 04/12/18 10:19 Dose: 20 mg Mirtazapine (Remeron) 30 mg PO HS [facility] Last Admin: 04/11/18 22:09 Dose: 30 mg Oxybutynin Chloride (Ditropan Tab) 5 mg PO DAILY [facility] Pantoprazole Sodium (Protonix Ec Tab) 40 mg PO BID [facility] Last Admin: 04/12/18 10:18 Dose: 40 mg Pramipexole Dihydrochloride (Mirapex) 0.5 mg PO HS [facility] Last Admin: 04/11/18 22:09 Dose: 0.5 mg Spironolactone (Aldactone) 50 mg PO BID [facility] Last Admin: 04/12/18 10:10 Dose: 50 mg Sucralfate (Carafate Oral Susp) 1 gm PO QID [facility] Last Admin: 04/12/18 12:36 Dose: Not Given Zolpidem Tartrate (Ambien) 5 mg PO HS PRN PRN Reason: insomia - Labs Labs: 04/12/18 06:30 04/12/18 06:30 PT 13.6 Seconds (9.8-13.1) H 04/10/18 18:50 INR 1.2 04/10/18 18:50 APTT 26.3 Seconds (25.6-37.1) 04/10/18 18:50 - Head Exam Head Exam: NORMAL INSPECTION - Eye Exam Eye Exam: Normal appearance - Respiratory Exam Respiratory Exam: Clear to Ausculation Bilateral - Cardiovascular Exam Cardiovascular Exam: REGULAR RHYTHM - GI/Abdominal Exam GI & Abdominal Exam: Normal Bowel Sounds - Neurological Exam Neurological Exam: Awake, Oriented x3 Assessment and Plan (1) Gastritis Status: Acute (2) Iron deficiency Status: Acute (3) Pancytopenia Status: Acute (4) Hyperlipidemia Status: Chronic (5) Hypertension Status: Chronic (6) Diabetes mellitus type 2 in obese Status: Acute - Assessment and Plan (Free Text) Plan: Cont meds cont tx cbc cmp in am patient refuses to have another endoscopy
--- NOTE | 2018-04-12 22:42 | CP.PCM.PN ---
Subjective - Date & Time of Evaluation Date of Evaluation: 04/12/18 Time of Evaluation: 17:00 - Subjective Subjective: Feeling better after transfusion Objective - Vital Signs/Intake and Output Vital Signs (last 24 hours): Temp Pulse Resp BP Pulse Ox 98.0 F 77 20 107/68 100 04/12/18 20:50 04/12/18 20:50 04/12/18 20:50 04/12/18 20:50 04/12/18 20:50 - Medications Medications: Current Medications Acetaminophen (Tylenol 325mg Tab) 650 mg PO Q6 PRN PRN Reason: Headache Last Admin: 04/12/18 06:00 Dose: 650 mg Albuterol (Ventolin Hfa 90 Mcg/Actuation (8 G)) 2 puff IH Q6 PRN PRN Reason: Shortness of Breath Atorvastatin Calcium (Lipitor) 20 mg PO DAILY [facility] Last Admin: 04/12/18 10:17 Dose: 20 mg Cyanocobalamin (Vitamin B12 1000 Mcg Tab) 1,000 mcg PO DAILY [facility] Last Admin: 04/12/18 10:19 Dose: 1,000 mcg Docusate Sodium (Colace) 100 mg PO BID [facility] Last Admin: 04/12/18 16:33 Dose: Not Given Famotidine (Pepcid) 40 mg PO DAILY [facility] Last Admin: 04/12/18 10:17 Dose: 40 mg Ferrous Sulfate (Feosol) 325 mg PO TID [facility] Last Admin: 04/12/18 16:34 Dose: 325 mg Furosemide (Lasix) 40 mg PO DAILY [facility] Last Admin: 04/12/18 10:16 Dose: 40 mg Gabapentin (Neurontin) 300 mg PO Q8 [facility] Last Admin: 04/12/18 16:39 Dose: 300 mg Iron Sucrose 200 mg/ Sodium (Chloride) 110 mls @ 110 mls/hr IVPB DAILY [facility] Stop: 04/16/18 18:01 Last Admin: 04/12/18 10:18 Dose: 110 mls/hr Insulin Detemir (Levemir) 34 units SC BID [facility] Last Admin: 04/12/18 16:49 Dose: Not Given Insulin Human Lispro (Humalog) 0 units SC ACHS [facility]; Protocol Last Admin: 04/12/18 22:31 Dose: Not Given Insulin Lispro Protam/Lispro Human (Humalog Mix 75/25) 15 units SC BRK [facility] Last Admin: 04/12/18 10:22 Dose: Not Given Levothyroxine Sodium (Synthroid) 175 mcg PO DAILY@0630 [facility] Last Admin: 04/12/18 06:42 Dose: 175 mcg Lisinopril (Zestril) 20 mg PO DAILY [facility] Last Admin: 04/12/18 10:19 Dose: 20 mg Mirtazapine (Remeron) 30 mg PO HS [facility] Last Admin: 04/12/18 22:34 Dose: 30 mg Oxybutynin Chloride (Ditropan Tab) 5 mg PO DAILY [facility] Last Admin: 04/12/18 16:34 Dose: 5 mg Pantoprazole Sodium (Protonix Ec Tab) 40 mg PO BID [facility] Last Admin: 04/12/18 16:39 Dose: 40 mg Pramipexole Dihydrochloride (Mirapex) 0.5 mg PO HS [facility] Last Admin: 04/12/18 22:35 Dose: 0.5 mg Spironolactone (Aldactone) 50 mg PO BID [facility] Last Admin: 04/12/18 16:33 Dose: 50 mg Sucralfate (Carafate Oral Susp) 1 gm PO QID [facility] Last Admin: 04/12/18 22:31 Dose: Not Given Zolpidem Tartrate (Ambien) 5 mg PO HS PRN PRN Reason: insomia - Labs Labs: 04/12/18 06:30 04/12/18 06:30 PT 13.6 Seconds (9.8-13.1) H 04/10/18 18:50 INR 1.2 04/10/18 18:50 APTT 26.3 Seconds (25.6-37.1) 04/10/18 18:50 - Head Exam Head Exam: ATRAUMATIC - Eye Exam Eye Exam: Normal appearance - ENT Exam ENT Exam: Mucous Membranes Dry - Respiratory Exam Respiratory Exam: NORMAL BREATHING PATTERN - Cardiovascular Exam Cardiovascular Exam: +S1, +S2 - GI/Abdominal Exam GI & Abdominal Exam: Normal Bowel Sounds - Extremities Exam Extremities Exam: Normal Inspection Assessment and Plan (1) Anemia Assessment & Plan: prior iron deficiency; will check ferritin transfusion support and start IV iron imaging suggestive of liver cirrhosis with portal HTN and splenomegaly; 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 Jay Status: Acute
[2018-04-12] MEDS ORDERED: Lactated Ringer's 1,000 ML IV SCH (23:00)
[2018-04-13] MEDS: Levothyroxine 175 MCG TAB PO SCH (05:30)
[2018-04-13 05:54] LABS: BLOOD UREA NITROGEN 9 mg/dl (7-17); CALCIUM 8.5 mg/dL (8.4-10.2); GFR NON-AFRICAN AMERICAN > 60
[2018-04-13] MEDS: Insulin Lispro (humaLOG) 100 Units/ml Inj SC SCH ×4 (06:53→21:32)
[2018-04-13] MEDS: Insulin Lispro Mix 75/25 100 units/ml (HumaLog) 10ml SC SCH (08:20)
[2018-04-13] MEDS: Pantoprazole 40 mg EC Tab PO SCH ×2 (08:57→16:52)
[2018-04-13] MEDS: Insulin Detemir 100 Units/ml Inj SC SCH ×2 (08:59→16:50)
[2018-04-13] MEDS: Sucralfate 1 gm/10 ml Oral Susp UD PO SCH ×4 (09:00→21:33)
[2018-04-13 10:10] LABS: HEMOGLOBIN 8.7 g/dL (12.0-16.0); MEAN CELL VOLUME 87.4 fl (81.0-99.0); MEAN CORPUSCULAR HEMOGLOBIN 28.2 pg (27.0-31.0); MEAN CORPUSCULAR HGB CONC 32.3 g/dL (33.0-37.0); RBC 3.09 Mil/uL (3.80-5.20); RED CELL DISTRIBUTION WIDTH 16.7 % (11.5-14.5); WHITE BLOOD COUNT 3.5 K/uL (4.8-10.8)
--- NOTE | 2018-04-13 13:16 | CP.PCM.PN ---
Subjective - Date & Time of Evaluation Date of Evaluation: 04/13/18 Time of Evaluation: 13:12 - Subjective Subjective: Feels stronger post transfusion. No melena or dyspepsia Objective - Vital Signs/Intake and Output Vital Signs (last 24 hours): Temp Pulse Resp BP Pulse Ox 97.9 F 82 20 108/69 98 04/13/18 12:00 04/13/18 12:00 04/13/18 12:00 04/13/18 12:00 04/13/18 12:00 - Medications Medications: Current Medications Acetaminophen (Tylenol 325mg Tab) 650 mg PO Q6 PRN PRN Reason: Headache Last Admin: 04/12/18 06:00 Dose: 650 mg Albuterol (Ventolin Hfa 90 Mcg/Actuation (8 G)) 2 puff IH Q6 PRN PRN Reason: Shortness of Breath Atorvastatin Calcium (Lipitor) 20 mg PO DAILY [facility] Last Admin: 04/13/18 08:56 Dose: 20 mg Cyanocobalamin (Vitamin B12 1000 Mcg Tab) 1,000 mcg PO DAILY [facility] Last Admin: 04/13/18 08:56 Dose: 1,000 mcg Docusate Sodium (Colace) 100 mg PO BID [facility] Last Admin: 04/13/18 08:57 Dose: 100 mg Famotidine (Pepcid) 40 mg PO DAILY [facility] Last Admin: 04/13/18 08:57 Dose: 40 mg Ferrous Sulfate (Feosol) 325 mg PO TID [facility] Last Admin: 04/13/18 12:13 Dose: 325 mg Furosemide (Lasix) 40 mg PO DAILY [facility] Last Admin: 04/13/18 08:56 Dose: 40 mg Gabapentin (Neurontin) 300 mg PO Q8 [facility] Last Admin: 04/13/18 08:56 Dose: 300 mg Iron Sucrose 200 mg/ Sodium (Chloride) 110 mls @ 110 mls/hr IVPB DAILY [facility] Stop: 04/16/18 18:01 Last Admin: 04/13/18 08:57 Dose: 110 mls/hr Insulin Detemir (Levemir) 34 units SC BID [facility] Last Admin: 04/13/18 08:59 Dose: 34 units Insulin Human Lispro (Humalog) 0 units SC ACHS [facility]; Protocol Last Admin: 04/13/18 12:09 Dose: 2 units Insulin Lispro Protam/Lispro Human (Humalog Mix 75/25) 15 units SC BRK [facility] Last Admin: 04/13/18 08:20 Dose: 15 units Levothyroxine Sodium (Synthroid) 175 mcg PO DAILY@0630 [facility] Last Admin: 04/13/18 05:30 Dose: 175 mcg Lisinopril (Zestril) 20 mg PO DAILY [facility] Last Admin: 04/13/18 08:58 Dose: 20 mg Mirtazapine (Remeron) 30 mg PO HS [facility] Last Admin: 04/12/18 22:34 Dose: 30 mg Oxybutynin Chloride (Ditropan Tab) 5 mg PO DAILY [facility] Last Admin: 04/13/18 08:56 Dose: 5 mg Pantoprazole Sodium (Protonix Ec Tab) 40 mg PO BID [facility] Last Admin: 04/13/18 08:57 Dose: 40 mg Pramipexole Dihydrochloride (Mirapex) 0.5 mg PO HS [facility] Last Admin: 04/12/18 22:35 Dose: 0.5 mg Spironolactone (Aldactone) 50 mg PO BID [facility] Last Admin: 04/13/18 08:56 Dose: 50 mg Sucralfate (Carafate Oral Susp) 1 gm PO QID [facility] Last Admin: 04/13/18 12:10 Dose: 1 gm Zolpidem Tartrate (Ambien) 5 mg PO HS PRN PRN Reason: insomia Last Admin: 04/12/18 22:41 Dose: 5 mg - Labs Labs: 04/13/18 10:02 04/13/18 04:20 PT 13.6 Seconds (9.8-13.1) H 04/10/18 18:50 INR 1.2 04/10/18 18:50 APTT 26.3 Seconds (25.6-37.1) 04/10/18 18:50 - Head Exam Head Exam: ATRAUMATIC - Eye Exam Eye Exam: Normal appearance - ENT Exam ENT Exam: Normal Exam - Neck Exam Neck Exam: Meningismus - Respiratory Exam Respiratory Exam: Clear to Ausculation Bilateral, NORMAL BREATHING PATTERN - Cardiovascular Exam Cardiovascular Exam: +S1, +S2 - GI/Abdominal Exam GI & Abdominal Exam: Firm, Soft Assessment and Plan (1) Anemia Assessment & Plan: 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 Patient advised to have another endoscopy with possible APC, She does not want any procedures now.Transfuse to Hgb 10. Status: Chronic
--- NOTE | 2018-04-13 22:49 | CP.PCM.PN ---
Subjective - Date & Time of Evaluation Date of Evaluation: 04/13/18 Time of Evaluation: 18:00 - Subjective Subjective: Feeling better. Objective - Vital Signs/Intake and Output Vital Signs (last 24 hours): Temp Pulse Resp BP Pulse Ox 98.1 F 77 20 112/59 L 99 04/13/18 18:56 04/13/18 18:56 04/13/18 18:56 04/13/18 18:56 04/13/18 18:56 - Medications Medications: Current Medications Acetaminophen (Tylenol 325mg Tab) 650 mg PO Q6 PRN PRN Reason: Headache Last Admin: 04/13/18 20:14 Dose: 650 mg Albuterol (Ventolin Hfa 90 Mcg/Actuation (8 G)) 2 puff IH Q6 PRN PRN Reason: Shortness of Breath Atorvastatin Calcium (Lipitor) 20 mg PO DAILY [facility] Last Admin: 04/13/18 08:56 Dose: 20 mg Cyanocobalamin (Vitamin B12 1000 Mcg Tab) 1,000 mcg PO DAILY [facility] Last Admin: 04/13/18 08:56 Dose: 1,000 mcg Docusate Sodium (Colace) 100 mg PO BID [facility] Last Admin: 04/13/18 16:51 Dose: 100 mg Famotidine (Pepcid) 40 mg PO DAILY [facility] Last Admin: 04/13/18 08:57 Dose: 40 mg Ferrous Sulfate (Feosol) 325 mg PO TID [facility] Last Admin: 04/13/18 16:49 Dose: 325 mg Furosemide (Lasix) 40 mg PO DAILY [facility] Last Admin: 04/13/18 08:56 Dose: 40 mg Gabapentin (Neurontin) 300 mg PO Q8 [facility] Last Admin: 04/13/18 16:51 Dose: 300 mg Iron Sucrose 200 mg/ Sodium (Chloride) 110 mls @ 110 mls/hr IVPB DAILY [facility] Stop: 04/16/18 18:01 Last Admin: 04/13/18 08:57 Dose: 110 mls/hr Insulin Detemir (Levemir) 34 units SC BID [facility] Last Admin: 04/13/18 16:50 Dose: 34 units Insulin Human Lispro (Humalog) 0 units SC ACHS [facility]; Protocol Last Admin: 04/13/18 21:32 Dose: Not Given Insulin Lispro Protam/Lispro Human (Humalog Mix 75/25) 15 units SC BRK [facility] Last Admin: 04/13/18 08:20 Dose: 15 units Levothyroxine Sodium (Synthroid) 175 mcg PO DAILY@0630 [facility] Last Admin: 04/13/18 05:30 Dose: 175 mcg Lisinopril (Zestril) 20 mg PO DAILY [facility] Last Admin: 04/13/18 08:58 Dose: 20 mg Mirtazapine (Remeron) 30 mg PO HS [facility] Last Admin: 04/13/18 21:34 Dose: 30 mg Oxybutynin Chloride (Ditropan Tab) 5 mg PO DAILY [facility] Last Admin: 04/13/18 08:56 Dose: 5 mg Pantoprazole Sodium (Protonix Ec Tab) 40 mg PO BID [facility] Last Admin: 04/13/18 16:52 Dose: 40 mg Pramipexole Dihydrochloride (Mirapex) 0.5 mg PO HS [facility] Last Admin: 04/13/18 21:33 Dose: 0.5 mg Spironolactone (Aldactone) 50 mg PO BID [facility] Last Admin: 04/13/18 16:51 Dose: 50 mg Sucralfate (Carafate Oral Susp) 1 gm PO QID [facility] Last Admin: 04/13/18 21:33 Dose: 1 gm Zolpidem Tartrate (Ambien) 5 mg PO HS PRN PRN Reason: insomia Last Admin: 04/13/18 22:45 Dose: 5 mg - Labs Labs: 04/13/18 10:02 04/13/18 04:20 PT 13.6 Seconds (9.8-13.1) H 04/10/18 18:50 INR 1.2 04/10/18 18:50 APTT 26.3 Seconds (25.6-37.1) 04/10/18 18:50 - Head Exam Head Exam: ATRAUMATIC - Eye Exam Eye Exam: Normal appearance - ENT Exam ENT Exam: Mucous Membranes Dry - Respiratory Exam Respiratory Exam: NORMAL BREATHING PATTERN - Cardiovascular Exam Cardiovascular Exam: +S1, +S2 - GI/Abdominal Exam GI & Abdominal Exam: Normal Bowel Sounds Assessment and Plan (1) Anemia Assessment & Plan: iron deficiency transfusion support and IV iron imaging suggestive of liver cirrhosis with portal HTN and splenomegaly; likely splenic sequestration GI following Status: Chronic (2) History of colon cancer Assessment & Plan: s/p adjuvant chemotherapy with Dr. Jay Status: Acute
[2018-04-14] MEDS: Levothyroxine 175 MCG TAB PO SCH (05:54)
[2018-04-14 06:10] LABS: BLOOD UREA NITROGEN 12 mg/dl (7-17); CALCIUM 8.6 mg/dL (8.4-10.2); GFR NON-AFRICAN AMERICAN > 60
[2018-04-14 07:49] LABS: HEMOGLOBIN 8.4 g/dL (12.0-16.0); MEAN CELL VOLUME 87.9 fl (81.0-99.0); MEAN CORPUSCULAR HEMOGLOBIN 28.5 pg (27.0-31.0); MEAN CORPUSCULAR HGB CONC 32.4 g/dL (33.0-37.0); RBC 2.96 Mil/uL (3.80-5.20); RED CELL DISTRIBUTION WIDTH 16.5 % (11.5-14.5); WHITE BLOOD COUNT 3.3 K/uL (4.8-10.8)
[2018-04-14] MEDS: Insulin Lispro (humaLOG) 100 Units/ml Inj SC SCH ×4 (08:00→23:12)
[2018-04-14] MEDS ORDERED: Potassium Chloride 20 mEq ER Tab PO ONE (08:48)
[2018-04-14] MEDS: Sucralfate 1 gm/10 ml Oral Susp UD PO SCH ×4 (09:37→21:44)
[2018-04-14] MEDS: Pantoprazole 40 mg EC Tab PO SCH ×2 (09:39→18:15)
[2018-04-14] MEDS ORDERED: Insulin Detemir 100 Units/ml Inj SC ONE (09:58)
[2018-04-14] MEDS: Insulin Detemir 100 Units/ml Inj SC SCH ×2 (10:39→18:14)
[2018-04-14] MEDS: Insulin Lispro Mix 75/25 100 units/ml (HumaLog) 10ml SC SCH (11:23)
--- NOTE | 2018-04-14 12:54 | CP.PCM.PN ---
Subjective - Date & Time of Evaluation Date of Evaluation: 04/14/18 Time of Evaluation: 11:00 - Subjective Subjective: patient seen and examined at bedside. no acute events overnight. GI, heme following. feeling better. no new complaints. Objective - Vital Signs/Intake and Output Vital Signs (last 24 hours): Temp Pulse Resp BP Pulse Ox 97.8 F 80 18 110/56 L 97 04/14/18 12:23 04/14/18 12:23 04/14/18 12:23 04/14/18 12:23 04/14/18 12:23 - Medications Medications: Current Medications Acetaminophen (Tylenol 325mg Tab) 650 mg PO Q6 PRN PRN Reason: Headache Last Admin: 04/13/18 20:14 Dose: 650 mg Albuterol (Ventolin Hfa 90 Mcg/Actuation (8 G)) 2 puff IH Q6 PRN PRN Reason: Shortness of Breath Atorvastatin Calcium (Lipitor) 20 mg PO DAILY [facility] Last Admin: 04/14/18 09:37 Dose: 20 mg Cyanocobalamin (Vitamin B12 1000 Mcg Tab) 1,000 mcg PO DAILY [facility] Last Admin: 04/14/18 09:39 Dose: 1,000 mcg Docusate Sodium (Colace) 100 mg PO BID [facility] Last Admin: 04/14/18 09:48 Dose: Not Given Famotidine (Pepcid) 40 mg PO DAILY [facility] Last Admin: 04/14/18 09:40 Dose: 40 mg Ferrous Sulfate (Feosol) 325 mg PO TID [facility] Last Admin: 04/14/18 09:39 Dose: 325 mg Furosemide (Lasix) 40 mg PO DAILY [facility] Last Admin: 04/14/18 09:38 Dose: 40 mg Gabapentin (Neurontin) 300 mg PO Q8 [facility] Last Admin: 04/14/18 09:37 Dose: 300 mg Iron Sucrose 200 mg/ Sodium (Chloride) 110 mls @ 110 mls/hr IVPB DAILY [facility] Stop: 04/16/18 18:01 Last Admin: 04/14/18 09:48 Dose: 110 mls/hr Insulin Detemir (Levemir) 34 units SC BID [facility] Insulin Human Lispro (Humalog) 0 units SC ACHS [facility]; Protocol Last Admin: 04/14/18 08:00 Dose: Not Given Insulin Lispro Protam/Lispro Human (Humalog Mix 75/25) 5 units SC BRK [facility] Last Admin: 04/14/18 11:23 Dose: 5 units Levothyroxine Sodium (Synthroid) 175 mcg PO DAILY@0630 [facility] Last Admin: 04/14/18 05:54 Dose: 175 mcg Lisinopril (Zestril) 20 mg PO DAILY [facility] Last Admin: 04/14/18 09:38 Dose: 20 mg Mirtazapine (Remeron) 30 mg PO HS [facility] Last Admin: 04/13/18 21:34 Dose: 30 mg Oxybutynin Chloride (Ditropan Tab) 5 mg PO DAILY [facility] Last Admin: 04/14/18 09:38 Dose: 5 mg Pantoprazole Sodium (Protonix Ec Tab) 40 mg PO BID [facility] Last Admin: 04/14/18 09:39 Dose: 40 mg Pramipexole Dihydrochloride (Mirapex) 0.5 mg PO HS [facility] Last Admin: 04/13/18 21:33 Dose: 0.5 mg Spironolactone (Aldactone) 50 mg PO BID [facility] Last Admin: 04/14/18 09:39 Dose: 50 mg Sucralfate (Carafate Oral Susp) 1 gm PO QID [facility] Last Admin: 04/14/18 09:37 Dose: 1 gm Zolpidem Tartrate (Ambien) 5 mg PO HS PRN PRN Reason: insomia Last Admin: 04/13/18 22:45 Dose: 5 mg - Labs Labs: 04/14/18 07:46 04/14/18 04:25 PT 13.6 Seconds (9.8-13.1) H 04/10/18 18:50 INR 1.2 04/10/18 18:50 APTT 26.3 Seconds (25.6-37.1) 04/10/18 18:50 - Constitutional Appears: Well, Non-toxic - Head Exam Head Exam: NORMAL INSPECTION - Eye Exam Eye Exam: Normal appearance - Respiratory Exam Respiratory Exam: NORMAL BREATHING PATTERN - Cardiovascular Exam Cardiovascular Exam: +S1, +S2 - GI/Abdominal Exam GI & Abdominal Exam: Soft, Normal Bowel Sounds - Back Exam Back Exam: NORMAL INSPECTION - Neurological Exam Neurological Exam: Alert, Awake - Psychiatric Exam Psychiatric exam: Normal Affect, Normal Mood - Skin Skin Exam: Normal Color, Warm Assessment and Plan - Assessment and Plan (Free Text) Plan: GI requests 1U pRBC patient refuses to have another endoscopy dispo planning
--- NOTE | 2018-04-14 18:57 | CP.PCM.PN ---
Subjective - Date & Time of Evaluation Date of Evaluation: 04/14/18 Time of Evaluation: 08:00 - Subjective Subjective: Patient generally feeling stronger. No observed GI bleeding. Objective - Vital Signs/Intake and Output Vital Signs (last 24 hours): Temp Pulse Resp BP Pulse Ox 98.1 F 62 20 112/54 L 98 04/14/18 15:51 04/14/18 15:51 04/14/18 15:51 04/14/18 15:51 04/14/18 15:51 - Medications Medications: Current Medications Acetaminophen (Tylenol 325mg Tab) 650 mg PO Q6 PRN PRN Reason: Headache Last Admin: 04/13/18 20:14 Dose: 650 mg Albuterol (Ventolin Hfa 90 Mcg/Actuation (8 G)) 2 puff IH Q6 PRN PRN Reason: Shortness of Breath Atorvastatin Calcium (Lipitor) 20 mg PO DAILY [facility] Last Admin: 04/14/18 09:37 Dose: 20 mg Cyanocobalamin (Vitamin B12 1000 Mcg Tab) 1,000 mcg PO DAILY [facility] Last Admin: 04/14/18 09:39 Dose: 1,000 mcg Docusate Sodium (Colace) 100 mg PO BID [facility] Last Admin: 04/14/18 18:12 Dose: Not Given Famotidine (Pepcid) 40 mg PO DAILY [facility] Last Admin: 04/14/18 09:40 Dose: 40 mg Ferrous Sulfate (Feosol) 325 mg PO TID [facility] Last Admin: 04/14/18 18:12 Dose: 325 mg Furosemide (Lasix) 40 mg PO DAILY [facility] Last Admin: 04/14/18 09:38 Dose: 40 mg Gabapentin (Neurontin) 300 mg PO Q8 [facility] Last Admin: 04/14/18 18:15 Dose: 300 mg Iron Sucrose 200 mg/ Sodium (Chloride) 110 mls @ 110 mls/hr IVPB DAILY [facility] Stop: 04/16/18 18:01 Last Admin: 04/14/18 09:48 Dose: 110 mls/hr Insulin Detemir (Levemir) 34 units SC BID [facility] Last Admin: 04/14/18 18:14 Dose: 34 u Insulin Human Lispro (Humalog) 0 units SC ACHS [facility]; Protocol Last Admin: 04/14/18 18:13 Dose: 1 units Insulin Lispro Protam/Lispro Human (Humalog Mix 75/25) 5 units SC BRK [facility] Last Admin: 04/14/18 11:23 Dose: 5 units Levothyroxine Sodium (Synthroid) 175 mcg PO DAILY@0630 [facility] Last Admin: 04/14/18 05:54 Dose: 175 mcg Lisinopril (Zestril) 20 mg PO DAILY [facility] Last Admin: 04/14/18 09:38 Dose: 20 mg Mirtazapine (Remeron) 30 mg PO HS [facility] Last Admin: 04/13/18 21:34 Dose: 30 mg Oxybutynin Chloride (Ditropan Tab) 5 mg PO DAILY [facility] Last Admin: 04/14/18 09:38 Dose: 5 mg Pantoprazole Sodium (Protonix Ec Tab) 40 mg PO BID [facility] Last Admin: 04/14/18 18:15 Dose: 40 mg Pramipexole Dihydrochloride (Mirapex) 0.5 mg PO HS [facility] Last Admin: 04/13/18 21:33 Dose: 0.5 mg Spironolactone (Aldactone) 50 mg PO BID [facility] Last Admin: 04/14/18 18:13 Dose: 50 mg Sucralfate (Carafate Oral Susp) 1 gm PO QID [facility] Last Admin: 04/14/18 18:12 Dose: 1 gm Zolpidem Tartrate (Ambien) 5 mg PO HS PRN PRN Reason: insomia Last Admin: 04/13/18 22:45 Dose: 5 mg - Labs Labs: 04/14/18 07:46 04/14/18 04:25 PT 13.6 Seconds (9.8-13.1) H 04/10/18 18:50 INR 1.2 04/10/18 18:50 APTT 26.3 Seconds (25.6-37.1) 04/10/18 18:50 - Head Exam Head Exam: ATRAUMATIC - Eye Exam Eye Exam: Normal appearance Pupil Exam: PERRL - Neck Exam Neck Exam: Full ROM - Respiratory Exam Respiratory Exam: Clear to Ausculation Bilateral - Cardiovascular Exam Cardiovascular Exam: REGULAR RHYTHM, +S1, +S2 - GI/Abdominal Exam GI & Abdominal Exam: Soft. absent: Tenderness Assessment and Plan (1) Anemia Assessment & Plan: Doing better. Hgb 8.4 and will transfuse to provide a cusion. Also receiving IV iron. Patient currently does not want upper endoscopy.. Status: Chronic
--- NOTE | 2018-04-15 00:28 | CP.PCM.PN ---
Subjective - Date & Time of Evaluation Date of Evaluation: 04/14/18 Time of Evaluation: 11:10 - Subjective Subjective: Feels dizzy, for transfusion Objective - Vital Signs/Intake and Output Vital Signs (last 24 hours): Temp Pulse Resp BP Pulse Ox 98.2 F 85 19 109/70 97 04/15/18 00:11 04/15/18 00:11 04/15/18 00:11 04/15/18 00:11 04/15/18 00:11 Intake and Output: 04/14/18 04/15/18 18:59 06:59 Intake Total 0 Balance 0 - Medications Medications: Current Medications Acetaminophen (Tylenol 325mg Tab) 650 mg PO Q6 PRN PRN Reason: Headache Last Admin: 04/14/18 23:09 Dose: 650 mg Albuterol (Ventolin Hfa 90 Mcg/Actuation (8 G)) 2 puff IH Q6 PRN PRN Reason: Shortness of Breath Atorvastatin Calcium (Lipitor) 20 mg PO DAILY [facility] Last Admin: 04/14/18 09:37 Dose: 20 mg Cyanocobalamin (Vitamin B12 1000 Mcg Tab) 1,000 mcg PO DAILY [facility] Last Admin: 04/14/18 09:39 Dose: 1,000 mcg Docusate Sodium (Colace) 100 mg PO BID [facility] Last Admin: 04/14/18 18:12 Dose: Not Given Famotidine (Pepcid) 40 mg PO DAILY [facility] Last Admin: 04/14/18 09:40 Dose: 40 mg Ferrous Sulfate (Feosol) 325 mg PO TID [facility] Last Admin: 04/14/18 18:12 Dose: 325 mg Furosemide (Lasix) 40 mg PO DAILY [facility] Last Admin: 04/14/18 09:38 Dose: 40 mg Gabapentin (Neurontin) 300 mg PO Q8 [facility] Last Admin: 04/14/18 18:15 Dose: 300 mg Iron Sucrose 200 mg/ Sodium (Chloride) 110 mls @ 110 mls/hr IVPB DAILY [facility] Stop: 04/16/18 18:01 Last Admin: 04/14/18 09:48 Dose: 110 mls/hr Insulin Detemir (Levemir) 34 units SC BID [facility] Last Admin: 04/14/18 18:14 Dose: 34 u Insulin Human Lispro (Humalog) 0 units SC ACHS [facility]; Protocol Last Admin: 04/14/18 23:12 Dose: Not Given Insulin Lispro Protam/Lispro Human (Humalog Mix 75/25) 5 units SC BRK [facility] Last Admin: 04/14/18 11:23 Dose: 5 units Levothyroxine Sodium (Synthroid) 175 mcg PO DAILY@0630 [facility] Last Admin: 04/14/18 05:54 Dose: 175 mcg Lisinopril (Zestril) 20 mg PO DAILY [facility] Last Admin: 04/14/18 09:38 Dose: 20 mg Mirtazapine (Remeron) 30 mg PO HS [facility] Last Admin: 04/14/18 21:44 Dose: 30 mg Oxybutynin Chloride (Ditropan Tab) 5 mg PO DAILY [facility] Last Admin: 04/14/18 09:38 Dose: 5 mg Pantoprazole Sodium (Protonix Ec Tab) 40 mg PO BID [facility] Last Admin: 04/14/18 18:15 Dose: 40 mg Pramipexole Dihydrochloride (Mirapex) 0.5 mg PO [facility] Last Admin: 04/14/18 21:45 Dose: 0.5 mg Spironolactone (Aldactone) 50 mg PO BID [facility] Last Admin: 04/14/18 18:13 Dose: 50 mg Sucralfate (Carafate Oral Susp) 1 gm PO QID [facility] Last Admin: 04/14/18 21:44 Dose: 1 gm - Labs Labs: 04/14/18 07:46 04/14/18 04:25 PT 13.6 Seconds (9.8-13.1) H 04/10/18 18:50 INR 1.2 04/10/18 18:50 APTT 26.3 Seconds (25.6-37.1) 04/10/18 18:50 - Head Exam Head Exam: ATRAUMATIC - Eye Exam Eye Exam: Normal appearance - ENT Exam ENT Exam: Mucous Membranes Dry - Respiratory Exam Respiratory Exam: NORMAL BREATHING PATTERN - Cardiovascular Exam Cardiovascular Exam: +S1, +S2 - GI/Abdominal Exam GI & Abdominal Exam: Normal Bowel Sounds Assessment and Plan (1) Anemia Assessment & Plan: iron deficiency anemia from chronic GI blood loss s/p PRBC transfusion; to receive additional transfusion today on IV iron GI f/u Status: Chronic (2) History of colon cancer Assessment & Plan: s/p adjuvant chemotherapy outpatient surveillance Status: Acute
[2018-04-15] MEDS: Levothyroxine 175 MCG TAB PO SCH (05:42)
[2018-04-15 08:31] LABS: HEMOGLOBIN 10.7 g/dL (12.0-16.0); MEAN CELL VOLUME 87.2 fl (81.0-99.0); MEAN CORPUSCULAR HEMOGLOBIN 29.1 pg (27.0-31.0); MEAN CORPUSCULAR HGB CONC 33.4 g/dL (33.0-37.0); RBC 3.67 Mil/uL (3.80-5.20); RED CELL DISTRIBUTION WIDTH 16.6 % (11.5-14.5); WHITE BLOOD COUNT 4.3 K/uL (4.8-10.8)
[2018-04-15] MEDS: Sucralfate 1 gm/10 ml Oral Susp UD PO SCH ×4 (09:36→21:24)
[2018-04-15] MEDS: Insulin Lispro (humaLOG) 100 Units/ml Inj SC SCH ×4 (09:39→21:29)
[2018-04-15] MEDS: Insulin Lispro Mix 75/25 100 units/ml (HumaLog) 10ml SC SCH (09:40)
[2018-04-15] MEDS: Insulin Detemir 100 Units/ml Inj SC SCH ×2 (09:42→17:00)
[2018-04-15] MEDS: Pantoprazole 40 mg EC Tab PO SCH (09:43)
--- NOTE | 2018-04-15 13:37 | CP.PCM.PN ---
Subjective - Date & Time of Evaluation Date of Evaluation: 04/15/18 Time of Evaluation: 12:05 - Subjective Subjective: Feeling better after transfusion Objective - Vital Signs/Intake and Output Vital Signs (last 24 hours): Temp Pulse Resp BP Pulse Ox 98.0 F 90 18 110/69 97 04/15/18 11:45 04/15/18 11:45 04/15/18 11:45 04/15/18 11:45 04/15/18 11:45 Intake and Output: 04/15/18 04/15/18 06:59 18:59 Intake Total 325 Balance 325 - Medications Medications: Current Medications Acetaminophen (Tylenol 325mg Tab) 650 mg PO Q6 PRN PRN Reason: Headache Last Admin: 04/14/18 23:09 Dose: 650 mg Albuterol (Ventolin Hfa 90 Mcg/Actuation (8 G)) 2 puff IH Q6 PRN PRN Reason: Shortness of Breath Atorvastatin Calcium (Lipitor) 20 mg PO DAILY [facility] Last Admin: 04/15/18 09:42 Dose: 20 mg Cyanocobalamin (Vitamin B12 1000 Mcg Tab) 1,000 mcg PO DAILY [facility] Last Admin: 04/14/18 09:39 Dose: 1,000 mcg Docusate Sodium (Colace) 100 mg PO BID [facility] Last Admin: 04/15/18 09:38 Dose: 100 mg Famotidine (Pepcid) 40 mg PO DAILY [facility] Last Admin: 04/15/18 09:43 Dose: 40 mg Ferrous Sulfate (Feosol) 325 mg PO TID [facility] Last Admin: 04/15/18 09:38 Dose: 325 mg Furosemide (Lasix) 40 mg PO DAILY [facility] Last Admin: 04/15/18 09:41 Dose: 40 mg Gabapentin (Neurontin) 300 mg PO Q8 [facility] Last Admin: 04/15/18 09:42 Dose: 300 mg Iron Sucrose 200 mg/ Sodium (Chloride) 110 mls @ 110 mls/hr IVPB DAILY [facility] Stop: 04/16/18 18:01 Last Admin: 04/15/18 09:44 Dose: 110 mls/hr Insulin Detemir (Levemir) 34 units SC BID [facility] Last Admin: 04/15/18 09:42 Dose: Not Given Insulin Human Lispro (Humalog) 0 units SC [facility]; Protocol Last Admin: 04/15/18 09:39 Dose: Not Given Insulin Lispro Protam/Lispro Human (Humalog Mix 75/25) 5 units SC BRK [facility] Last Admin: 04/15/18 09:40 Dose: 5 units Levothyroxine Sodium (Synthroid) 175 mcg PO DAILY@0630 [facility] Last Admin: 04/15/18 05:42 Dose: 175 mcg Lisinopril (Zestril) 20 mg PO DAILY [facility] Last Admin: 04/14/18 09:38 Dose: 20 mg Mirtazapine (Remeron) 30 mg PO HS [facility] Last Admin: 04/14/18 21:44 Dose: 30 mg Oxybutynin Chloride (Ditropan Tab) 5 mg PO DAILY [facility] Last Admin: 04/15/18 09:38 Dose: 5 mg Pantoprazole Sodium (Protonix Ec Tab) 40 mg PO BID [facility] Last Admin: 04/15/18 09:43 Dose: 40 mg Pramipexole Dihydrochloride (Mirapex) 0.5 mg PO HS [facility] Last Admin: 04/14/18 21:45 Dose: 0.5 mg Spironolactone (Aldactone) 50 mg PO BID [facility] Last Admin: 04/15/18 09:37 Dose: 50 mg Sucralfate (Carafate Oral Susp) 1 gm PO QID [facility] Last Admin: 04/15/18 09:36 Dose: 1 gm - Labs Labs: 04/15/18 05:15 04/14/18 04:25 PT 13.6 Seconds (9.8-13.1) H 04/10/18 18:50 INR 1.2 04/10/18 18:50 APTT 26.3 Seconds (25.6-37.1) 04/10/18 18:50 - Head Exam Head Exam: ATRAUMATIC - Eye Exam Eye Exam: Normal appearance - ENT Exam ENT Exam: Mucous Membranes Dry - Respiratory Exam Respiratory Exam: NORMAL BREATHING PATTERN - Cardiovascular Exam Cardiovascular Exam: +S1, +S2 - GI/Abdominal Exam GI & Abdominal Exam: Normal Bowel Sounds Assessment and Plan (1) Anemia Assessment & Plan: chronic iron deficiency anemia from chronic GI blood loss s/p PRBC transfusion and IV iron outpatient f/u Status: Chronic (2) History of colon cancer Assessment & Plan: s/p adjuvant chemotherapy Status: Acute
--- NOTE | 2018-04-15 20:09 | CP.PCM.PN ---
Subjective - Date & Time of Evaluation Date of Evaluation: 04/15/18 Time of Evaluation: 08:00 - Subjective Subjective: Patient feeling much stronger was transfused yesterday. No observed bleeding Objective - Vital Signs/Intake and Output Vital Signs (last 24 hours): Temp Pulse Resp BP Pulse Ox 97.8 F 82 20 117/69 97 04/15/18 16:02 04/15/18 16:02 04/15/18 16:02 04/15/18 16:02 04/15/18 16:02 Intake and Output: 04/15/18 04/16/18 18:59 06:59 Intake Total 1300 Balance 1300 - Medications Medications: Current Medications Acetaminophen (Tylenol 325mg Tab) 650 mg PO Q6 PRN PRN Reason: Headache Last Admin: 04/14/18 23:09 Dose: 650 mg Acetaminophen (Tylenol 325mg Tab) 650 mg PO Q4 PRN PRN Reason: Pain, moderate (4-7) Albuterol (Ventolin Hfa 90 Mcg/Actuation (8 G)) 2 puff IH Q6 PRN PRN Reason: Shortness of Breath Atorvastatin Calcium (Lipitor) 20 mg PO DAILY [facility] Last Admin: 04/15/18 09:42 Dose: 20 mg Cyanocobalamin (Vitamin B12 1000 Mcg Tab) 1,000 mcg PO DAILY [facility] Last Admin: 04/15/18 13:52 Dose: 1,000 mcg Cyclobenzaprine HCl (Flexeril) 5 mg PO ONCE ONE Stop: 04/15/18 20:01 Docusate Sodium (Colace) 100 mg PO BID [facility] Last Admin: 04/15/18 17:00 Dose: 100 mg Famotidine (Pepcid) 40 mg PO DAILY [facility] Last Admin: 04/15/18 09:43 Dose: 40 mg Ferrous Sulfate (Feosol) 325 mg PO TID [facility] Last Admin: 04/15/18 16:55 Dose: 325 mg Furosemide (Lasix) 40 mg PO DAILY [facility] Last Admin: 04/15/18 09:41 Dose: 40 mg Gabapentin (Neurontin) 300 mg PO Q8 [facility] Last Admin: 04/15/18 16:56 Dose: 300 mg Iron Sucrose 200 mg/ Sodium (Chloride) 110 mls @ 110 mls/hr IVPB DAILY [facility] Stop: 04/16/18 18:01 Last Admin: 04/15/18 09:44 Dose: 110 mls/hr Insulin Detemir (Levemir) 34 units SC BID [facility] Last Admin: 04/15/18 09:42 Dose: Not Given Insulin Human Lispro (Humalog) 0 units SC ACHS [facility]; Protocol Last Admin: 04/15/18 17:02 Dose: 1 units Insulin Lispro Protam/Lispro Human (Humalog Mix 75/25) 5 units SC BRK [facility] Last Admin: 04/15/18 09:40 Dose: 5 units Levothyroxine Sodium (Synthroid) 175 mcg PO DAILY@0630 [facility] Last Admin: 04/15/18 05:42 Dose: 175 mcg Lisinopril (Zestril) 20 mg PO DAILY [facility] Last Admin: 04/15/18 13:52 Dose: 20 mg Mirtazapine (Remeron) 30 mg PO HS [facility] Last Admin: 04/14/18 21:44 Dose: 30 mg Oxybutynin Chloride (Ditropan Tab) 5 mg PO DAILY [facility] Last Admin: 04/15/18 09:38 Dose: 5 mg Pantoprazole Sodium (Protonix Ec Tab) 40 mg PO BID [facility] Last Admin: 04/15/18 09:43 Dose: 40 mg Pramipexole Dihydrochloride (Mirapex) 0.5 mg PO HS [facility] Last Admin: 04/14/18 21:45 Dose: 0.5 mg Spironolactone (Aldactone) 50 mg PO BID [facility] Last Admin: 04/15/18 16:57 Dose: 50 mg Sucralfate (Carafate Oral Susp) 1 gm PO QID [facility] Last Admin: 04/15/18 16:53 Dose: 1 gm - Labs Labs: 04/15/18 05:15 04/14/18 04:25 PT 13.6 Seconds (9.8-13.1) H 04/10/18 18:50 INR 1.2 04/10/18 18:50 APTT 26.3 Seconds (25.6-37.1) 04/10/18 18:50 - Head Exam Head Exam: ATRAUMATIC - Eye Exam Eye Exam: Normal appearance Pupil Exam: PERRL - ENT Exam ENT Exam: Normal Exam - Respiratory Exam Respiratory Exam: Clear to Ausculation Bilateral - Cardiovascular Exam Cardiovascular Exam: REGULAR RHYTHM - GI/Abdominal Exam GI & Abdominal Exam: Soft. absent: Tenderness Assessment and Plan (1) Anemia Assessment & Plan: Hgb has improved and patient appears stronger. Status: Chronic
[2018-04-16 00:38] VITALS: RESP 18
[2018-04-16] MEDS: Levothyroxine 175 MCG TAB PO SCH (05:35)
[2018-04-16] MEDS: Insulin Lispro (humaLOG) 100 Units/ml Inj SC SCH ×2 (06:31→12:45)
[2018-04-16 07:16] LABS: HEMOGLOBIN 10.5 g/dL (12.0-16.0); MEAN CELL VOLUME 88.9 fl (81.0-99.0); MEAN CORPUSCULAR HEMOGLOBIN 29.6 pg (27.0-31.0); MEAN CORPUSCULAR HGB CONC 33.3 g/dL (33.0-37.0); RBC 3.56 Mil/uL (3.80-5.20); RED CELL DISTRIBUTION WIDTH 16.9 % (11.5-14.5)
[2018-04-16 07:24] LABS: BLOOD UREA NITROGEN 18 mg/dl (7-17); GFR NON-AFRICAN AMERICAN > 60
[2018-04-16] MEDS: Sucralfate 1 gm/10 ml Oral Susp UD PO SCH (09:17)
[2018-04-16] MEDS: Insulin Lispro Mix 75/25 100 units/ml (HumaLog) 10ml SC SCH (09:19)
[2018-04-16] MEDS: Insulin Detemir 100 Units/ml Inj SC SCH (09:21)
[2018-04-16] MEDS: Pantoprazole 40 mg EC Tab PO SCH (09:27)
[2018-04-16 12:02] VITALS: BP 106/67; PULSE 80; TEMP 97.8; O2SAT 96
--- NOTE | 2018-04-16 12:08 | CP.PCM.PN ---
Subjective - Date & Time of Evaluation Date of Evaluation: 04/16/18 Time of Evaluation: 11:53 - Subjective Subjective: Patient had diarrhea late yesterday. None so far today. Feels stronger. Objective - Vital Signs/Intake and Output Vital Signs (last 24 hours): Temp Pulse Resp BP Pulse Ox 98 F 79 18 105/66 97 04/16/18 08:07 04/16/18 09:28 04/16/18 08:07 04/16/18 09:28 04/16/18 08:07 - Medications Medications: Current Medications Acetaminophen (Tylenol 325mg Tab) 650 mg PO Q6 PRN PRN Reason: Headache Last Admin: 04/16/18 04:46 Dose: 650 mg Acetaminophen (Tylenol 325mg Tab) 650 mg PO Q4 PRN PRN Reason: Pain, moderate (4-7) Albuterol (Ventolin Hfa 90 Mcg/Actuation (8 G)) 2 puff IH Q6 PRN PRN Reason: Shortness of Breath Atorvastatin Calcium (Lipitor) 20 mg PO DAILY [facility] Last Admin: 04/16/18 09:21 Dose: 20 mg Cyanocobalamin (Vitamin B12 1000 Mcg Tab) 1,000 mcg PO DAILY [facility] Last Admin: 04/16/18 09:27 Dose: 1,000 mcg Famotidine (Pepcid) 40 mg PO DAILY [facility] Last Admin: 04/16/18 09:22 Dose: 40 mg Ferrous Sulfate (Feosol) 325 mg PO TID [facility] Last Admin: 04/16/18 09:18 Dose: 325 mg Furosemide (Lasix) 40 mg PO DAILY [facility] Last Admin: 04/16/18 09:20 Dose: 40 mg Gabapentin (Neurontin) 300 mg PO Q8 [facility] Last Admin: 04/16/18 09:22 Dose: 300 mg Iron Sucrose 200 mg/ Sodium (Chloride) 110 mls @ 110 mls/hr IVPB DAILY [facility] Stop: 04/16/18 18:01 Last Admin: 04/16/18 09:30 Dose: 110 mls/hr Insulin Detemir (Levemir) 34 units SC BID [facility] Last Admin: 04/16/18 09:21 Dose: Not Given Insulin Human Lispro (Humalog) 0 units SC ACHS [facility]; Protocol Last Admin: 04/16/18 06:31 Dose: Not Given Insulin Lispro Protam/Lispro Human (Humalog Mix 75/25) 5 units SC BRK [facility] Last Admin: 04/16/18 09:19 Dose: 5 units Levothyroxine Sodium (Synthroid) 175 mcg PO DAILY@0630 [facility] Last Admin: 04/16/18 05:35 Dose: 175 mcg Lisinopril (Zestril) 20 mg PO DAILY [facility] Last Admin: 04/16/18 09:28 Dose: 20 mg Mirtazapine (Remeron) 30 mg PO HS [facility] Last Admin: 04/15/18 21:25 Dose: 30 mg Oxybutynin Chloride (Ditropan Tab) 5 mg PO DAILY [facility] Last Admin: 04/16/18 09:17 Dose: 5 mg Pantoprazole Sodium (Protonix Ec Tab) 40 mg PO BID [facility] Last Admin: 04/16/18 09:27 Dose: 40 mg Pramipexole Dihydrochloride (Mirapex) 0.5 mg PO HS [facility] Last Admin: 04/15/18 21:29 Dose: 0.5 mg Spironolactone (Aldactone) 50 mg PO BID [facility] Last Admin: 04/16/18 09:16 Dose: 50 mg Sucralfate (Carafate Oral Susp) 1 gm PO QID [facility] Last Admin: 04/16/18 09:17 Dose: 1 gm - Labs Labs: 04/16/18 06:54 04/16/18 06:54 PT 13.6 Seconds (9.8-13.1) H 04/10/18 18:50 INR 1.2 04/10/18 18:50 APTT 26.3 Seconds (25.6-37.1) 04/10/18 18:50 - Head Exam Head Exam: ATRAUMATIC - Eye Exam Eye Exam: Normal appearance - ENT Exam ENT Exam: Mucous Membranes Moist - Respiratory Exam Respiratory Exam: Clear to Ausculation Bilateral - Cardiovascular Exam Cardiovascular Exam: REGULAR RHYTHM, +S1, +S2 - GI/Abdominal Exam GI & Abdominal Exam: Soft, Normal Bowel Sounds. absent: Tenderness Assessment and Plan (1) Anemia Assessment & Plan: Hgb now stable. Diarrhea has resolved. Careful monitoring as outpatient. Status: Chronic
--- NOTE | 2018-04-16 12:19 | CP.PCM.DIS ---
Provider - Provider Date of Admission: 04/13/18 09:35 Attending physician: Corby Quispe MD Time Spent in preparation of Discharge (in minutes): 38 Diagnosis - Discharge Diagnosis (1) Anemia Status: Chronic (2) GI bleed Status: Acute (3) Diabetes mellitus type 2 in obese Status: Acute (4) History of colon cancer Status: Acute Hospital Course - Lab Results Lab Results: Most Recent Lab Values WBC 4.0 K/uL (4.8-10.8) L 04/16/18 06:54 RBC 3.56 Mil/uL (3.80-5.20) L 04/16/18 06:54 Hgb 10.5 g/dL (12.0-16.0) L 04/16/18 06:54 Hct 31.6 % (34.0-47.0) L 04/16/18 06:54 MCV 88.9 fl (81.0-99.0) 04/16/18 06:54 MCH 29.6 pg (27.0-31.0) 04/16/18 06:54 MCHC 33.3 g/dL (33.0-37.0) 04/16/18 06:54 RDW 16.9 % (11.5-14.5) H 04/16/18 06:54 Plt Count 98 K/uL (130-400) L 04/16/18 06:54 MPV 10.6 fl (7.2-11.7) 04/10/18 18:50 Neut % (Auto) 67.7 % (50.0-75.0) 04/10/18 18:50 Lymph % (Auto) 21.3 % (20.0-40.0) 04/10/18 18:50 Leon % (Auto) 6.5 % (0.0-10.0) 04/10/18 18:50 Eos % (Auto) 4.1 % (0.0-4.0) H 04/10/18 18:50 Baso % (Auto) 0.4 % (0.0-2.0) 04/10/18 18:50 Neut # (Auto) 1.5 K/uL (1.8-7.0) L 04/10/18 18:50 Lymph # (Auto) 0.5 K/uL (1.0-4.3) L 04/10/18 18:50 Leon # (Auto) 0.1 K/uL (0.0-0.8) 04/10/18 18:50 Eos # (Auto) 0.1 K/uL (0.0-0.7) 04/10/18 18:50 Baso # (Auto) 0.0 K/uL (0.0-0.2) 04/10/18 18:50 PT 13.6 Seconds (9.8-13.1) H 04/10/18 18:50 INR 1.2 04/10/18 18:50 APTT 26.3 Seconds (25.6-37.1) 04/10/18 18:50 Sodium 143 mmol/l (132-148) 04/16/18 06:54 Potassium 3.9 MMOL/L (3.6-5.0) 04/16/18 06:54 Chloride 109 mmol/L (98-107) H 04/16/18 06:54 Carbon Dioxide 24 mmol/L (22-30) 04/16/18 06:54 Anion Gap 14 (10-20) 04/16/18 06:54 BUN 18 mg/dl (7-17) H 04/16/18 06:54 Creatinine 0.7 mg/dl (0.7-1.2) 04/16/18 06:54 Est GFR ( Amer) > 60 04/16/18 06:54 Est GFR (Non-Af Amer) > 60 04/16/18 06:54 POC Glucose (mg/dL) 190 mg/dL (65-110) H 04/16/18 05:41 Random Glucose 166 mg/dL (65-105) H 04/16/18 06:54 Calcium 9.0 mg/dL (8.4-10.2) 04/16/18 06:54 Iron 11 ug/dL (37-170) L 04/10/18 18:50 TIBC 380 ug/dL (250-450) 04/10/18 18:50 % Saturation 3 % (20-55) L 04/10/18 18:50 Ferritin 28.4 ng/Ml (11.1-264.0) 04/10/18 18:50 Total Bilirubin 2.7 mg/dl (0.2-1.3) H 04/11/18 10:15 AST 33 U/L (14-36) 04/11/18 10:15 ALT 25 U/L (9-52) 04/11/18 10:15 Alkaline Phosphatase 75 U/L (38-126) 04/11/18 10:15 Total Protein 6.0 G/DL (6.3-8.2) L 04/11/18 10:15 Albumin 2.7 g/dL (3.5-5.0) L 04/11/18 10:15 Globulin 3.2 gm/dL (2.2-3.9) 04/11/18 10:15 Albumin/Globulin Ratio 0.8 (1.0-2.1) L 04/11/18 10:15 Stool Occult Blood Negative (NEGATIVE) 04/10/18 19:00 Blood Type A POSITIVE 04/14/18 14:10 Antibody Screen Negative 04/14/18 14:10 Crossmatch See Detail 04/14/18 14:10 BBK History Checked Patient has bt 04/14/18 14:10 - Hospital Course Hospital Course: This is a 62 yo female with hx of HTN, DM 2, cirrhosis and colon cancer s/p chemotherapy on 2005, recurrent iron def anemia due to blood loss now admitted with low GI bleed. She had multiple hospitalizations in the past for the similar episodes. H/H 5.5/17.3on admission. GI was consulted but patient refuses endoscopy this admission. Heme/onc also consulted. H/H stable 10.5/31.6 s/p 5 units of PRBC, patient stable during stay and discharge home safetly. Instructions to f/u with PCP next week, home meds resumed. Discharge Exam - Head Exam Head Exam: NORMAL INSPECTION - Eye Exam Eye Exam: EOMI - Respiratory Exam Respiratory Exam: Clear to PA & Lateral - Cardiovascular Exam Cardiovascular Exam: REGULAR RHYTHM, +S1, +S2 - GI/Abdominal Exam GI & Abdominal Exam: Soft. absent: Distended, Tenderness - Neurological Exam Neurological exam: Alert, CN II-XII Intact, Oriented x3 - Skin Skin Exam: Dry, Warm Discharge Plan - Discharge Medications Prescriptions: Oxybutynin [Ditropan Tab] 5 mg PO DAILY #14 tab - Follow Up Plan Condition: GUARDED Disposition: HOME/ ROUTINE Instructions: Anemia Caused by Low Iron, Adult (DC) Additional Instructions: bud con el doctor edie en 1 semana Referrals: Arturo Cheung MD [Staff Provider] - Corby Quispe MD [Staff Provider] - Ashkan Lopez MD [Staff Provider] -
--- NOTE | 2018-04-16 12:49 | CP.PCM.PCO ---
Physician Communication Note - Physician Communication Note Physician Communication Note: PICC line removed with no complications, patient for dc and follow up outpt
--- NOTE | 2018-04-16 13:41 | CP.PCM.PN ---
Subjective - Date & Time of Evaluation Date of Evaluation: 04/13/18 Time of Evaluation: 11:00 - Subjective Subjective: Patient remains stable Still gets very dizzy Hgb remains low. Has no abd pain Complains of some leg cramps. Objective - Vital Signs/Intake and Output Vital Signs (last 24 hours): Temp Pulse Resp BP Pulse Ox 97.8 F 80 18 106/67 96 04/16/18 12:02 04/16/18 12:02 04/16/18 12:02 04/16/18 12:02 04/16/18 12:02 - Medications Medications: Current Medications Acetaminophen (Tylenol 325mg Tab) 650 mg PO Q6 PRN PRN Reason: Headache Last Admin: 04/16/18 04:46 Dose: 650 mg Acetaminophen (Tylenol 325mg Tab) 650 mg PO Q4 PRN PRN Reason: Pain, moderate (4-7) Albuterol (Ventolin Hfa 90 Mcg/Actuation (8 G)) 2 puff IH Q6 PRN PRN Reason: Shortness of Breath Atorvastatin Calcium (Lipitor) 20 mg PO DAILY [facility] Last Admin: 04/16/18 09:21 Dose: 20 mg Cyanocobalamin (Vitamin B12 1000 Mcg Tab) 1,000 mcg PO DAILY [facility] Last Admin: 04/16/18 09:27 Dose: 1,000 mcg Famotidine (Pepcid) 40 mg PO DAILY [facility] Last Admin: 04/16/18 09:22 Dose: 40 mg Ferrous Sulfate (Feosol) 325 mg PO TID [facility] Last Admin: 04/16/18 12:46 Dose: 325 mg Furosemide (Lasix) 40 mg PO DAILY [facility] Last Admin: 04/16/18 09:20 Dose: 40 mg Gabapentin (Neurontin) 300 mg PO Q8 [facility] Last Admin: 04/16/18 09:22 Dose: 300 mg Iron Sucrose 200 mg/ Sodium (Chloride) 110 mls @ 110 mls/hr IVPB DAILY [facility] Stop: 04/16/18 18:01 Last Admin: 04/16/18 09:30 Dose: 110 mls/hr Insulin Detemir (Levemir) 34 units SC BID [facility] Last Admin: 04/16/18 09:21 Dose: Not Given Insulin Human Lispro (Humalog) 0 units SC ACHS [facility]; Protocol Last Admin: 04/16/18 12:45 Dose: 1 units Insulin Lispro Protam/Lispro Human (Humalog Mix 75/25) 5 units SC BRK [facility] Last Admin: 04/16/18 09:19 Dose: 5 units Levothyroxine Sodium (Synthroid) 175 mcg PO DAILY@0630 [facility] Last Admin: 04/16/18 05:35 Dose: 175 mcg Lisinopril (Zestril) 20 mg PO DAILY [facility] Last Admin: 04/16/18 09:28 Dose: 20 mg Mirtazapine (Remeron) 30 mg PO HS [facility] Last Admin: 04/15/18 21:25 Dose: 30 mg Oxybutynin Chloride (Ditropan Tab) 5 mg PO DAILY [facility] Last Admin: 04/16/18 09:17 Dose: 5 mg Pantoprazole Sodium (Protonix Ec Tab) 40 mg PO BID [facility] Last Admin: 04/16/18 09:27 Dose: 40 mg Pramipexole Dihydrochloride (Mirapex) 0.5 mg PO HS [facility] Last Admin: 04/15/18 21:29 Dose: 0.5 mg Spironolactone (Aldactone) 50 mg PO BID [facility] Last Admin: 04/16/18 09:16 Dose: 50 mg Sucralfate (Carafate Oral Susp) 1 gm PO QID [facility] Last Admin: 04/16/18 09:17 Dose: 1 gm - Labs Labs: 04/16/18 06:54 04/16/18 06:54 PT 13.6 Seconds (9.8-13.1) H 04/10/18 18:50 INR 1.2 04/10/18 18:50 APTT 26.3 Seconds (25.6-37.1) 04/10/18 18:50 - Head Exam Head Exam: NORMAL INSPECTION - Eye Exam Eye Exam: Normal appearance - Respiratory Exam Respiratory Exam: Clear to Ausculation Bilateral - Cardiovascular Exam Cardiovascular Exam: Irregular Rhythm - GI/Abdominal Exam GI & Abdominal Exam: Normal Bowel Sounds Assessment and Plan (1) Gastritis Status: Acute (2) Iron deficiency Status: Acute (3) Pancytopenia Status: Acute (4) Hyperlipidemia Status: Chronic (5) Hypertension Status: Chronic (6) Diabetes mellitus type 2 in obese Status: Acute - Assessment and Plan (Free Text) Plan: Cont meds Cont tx Monitor cbc BT if necessary then discharge to home
--- NOTE | 2018-04-16 13:43 | CP.PCM.PN ---
Subjective - Date & Time of Evaluation Date of Evaluation: 04/15/18 Time of Evaluation: 11:00 - Subjective Subjective: Patient continues to have some dizziness Has no chest pain or SOB Hgb noted to be elevated after BT Has some loose stools Objective - Vital Signs/Intake and Output Vital Signs (last 24 hours): Temp Pulse Resp BP Pulse Ox 97.8 F 80 18 106/67 96 04/16/18 12:02 04/16/18 12:02 04/16/18 12:02 04/16/18 12:02 04/16/18 12:02 - Medications Medications: Current Medications Acetaminophen (Tylenol 325mg Tab) 650 mg PO Q6 PRN PRN Reason: Headache Last Admin: 04/16/18 04:46 Dose: 650 mg Acetaminophen (Tylenol 325mg Tab) 650 mg PO Q4 PRN PRN Reason: Pain, moderate (4-7) Albuterol (Ventolin Hfa 90 Mcg/Actuation (8 G)) 2 puff IH Q6 PRN PRN Reason: Shortness of Breath Atorvastatin Calcium (Lipitor) 20 mg PO DAILY [facility] Last Admin: 04/16/18 09:21 Dose: 20 mg Cyanocobalamin (Vitamin B12 1000 Mcg Tab) 1,000 mcg PO DAILY [facility] Last Admin: 04/16/18 09:27 Dose: 1,000 mcg Famotidine (Pepcid) 40 mg PO DAILY [facility] Last Admin: 04/16/18 09:22 Dose: 40 mg Ferrous Sulfate (Feosol) 325 mg PO TID [facility] Last Admin: 04/16/18 12:46 Dose: 325 mg Furosemide (Lasix) 40 mg PO DAILY [facility] Last Admin: 04/16/18 09:20 Dose: 40 mg Gabapentin (Neurontin) 300 mg PO Q8 [facility] Last Admin: 04/16/18 09:22 Dose: 300 mg Iron Sucrose 200 mg/ Sodium (Chloride) 110 mls @ 110 mls/hr IVPB DAILY [facility] Stop: 04/16/18 18:01 Last Admin: 04/16/18 09:30 Dose: 110 mls/hr Insulin Detemir (Levemir) 34 units SC BID [facility] Last Admin: 04/16/18 09:21 Dose: Not Given Insulin Human Lispro (Humalog) 0 units SC ACHS [facility]; Protocol Last Admin: 04/16/18 12:45 Dose: 1 units Insulin Lispro Protam/Lispro Human (Humalog Mix 75/25) 5 units SC BRK [facility] Last Admin: 04/16/18 09:19 Dose: 5 units Levothyroxine Sodium (Synthroid) 175 mcg PO DAILY@0630 [facility] Last Admin: 04/16/18 05:35 Dose: 175 mcg Lisinopril (Zestril) 20 mg PO DAILY [facility] Last Admin: 04/16/18 09:28 Dose: 20 mg Mirtazapine (Remeron) 30 mg PO HS [facility] Last Admin: 04/15/18 21:25 Dose: 30 mg Oxybutynin Chloride (Ditropan Tab) 5 mg PO DAILY [facility] Last Admin: 04/16/18 09:17 Dose: 5 mg Pantoprazole Sodium (Protonix Ec Tab) 40 mg PO BID [facility] Last Admin: 04/16/18 09:27 Dose: 40 mg Pramipexole Dihydrochloride (Mirapex) 0.5 mg PO HS [facility] Last Admin: 04/15/18 21:29 Dose: 0.5 mg Spironolactone (Aldactone) 50 mg PO BID [facility] Last Admin: 04/16/18 09:16 Dose: 50 mg Sucralfate (Carafate Oral Susp) 1 gm PO QID [facility] Last Admin: 04/16/18 09:17 Dose: 1 gm - Labs Labs: 04/16/18 06:54 04/16/18 06:54 PT 13.6 Seconds (9.8-13.1) H 04/10/18 18:50 INR 1.2 04/10/18 18:50 APTT 26.3 Seconds (25.6-37.1) 04/10/18 18:50 - Head Exam Head Exam: NORMAL INSPECTION - Eye Exam Eye Exam: Normal appearance - Respiratory Exam Respiratory Exam: Decreased Breath Sounds - Cardiovascular Exam Cardiovascular Exam: Irregular Rhythm - GI/Abdominal Exam GI & Abdominal Exam: Normal Bowel Sounds Assessment and Plan (1) Gastritis Status: Acute (2) Iron deficiency Status: Acute (3) Pancytopenia Status: Acute (4) Hyperlipidemia Status: Chronic (5) Hypertension Status: Chronic (6) Diabetes mellitus type 2 in obese Status: Acute - Assessment and Plan (Free Text) Plan: Cont meds Cont tx Cont iron DC plans\ immodium
--- NOTE | 2018-04-16 20:41 | CP.PCM.PN ---
Subjective - Date & Time of Evaluation Date of Evaluation: 04/16/18 Time of Evaluation: 11:00 - Subjective Subjective: Diarrhea overnight. Objective - Vital Signs/Intake and Output Vital Signs (last 24 hours): Temp Pulse Resp BP Pulse Ox 97.8 F 80 18 106/67 96 04/16/18 12:02 04/16/18 12:02 04/16/18 12:02 04/16/18 12:02 04/16/18 12:02 Intake and Output: 04/16/18 04/17/18 18:59 06:59 Intake Total 960 Balance 960 - Labs Labs: 04/16/18 06:54 04/16/18 06:54 PT 13.6 Seconds (9.8-13.1) H 04/10/18 18:50 INR 1.2 04/10/18 18:50 APTT 26.3 Seconds (25.6-37.1) 04/10/18 18:50 - Head Exam Head Exam: ATRAUMATIC - Eye Exam Eye Exam: Normal appearance - ENT Exam ENT Exam: Mucous Membranes Dry - Respiratory Exam Respiratory Exam: NORMAL BREATHING PATTERN - Cardiovascular Exam Cardiovascular Exam: +S1, +S2 - GI/Abdominal Exam GI & Abdominal Exam: Normal Bowel Sounds Assessment and Plan (1) Anemia Assessment & Plan: iron deficiency anemia from chronic GI blood loss s/p PRBC transfusion and IV iron Status: Chronic (2) History of colon cancer Assessment & Plan: s/p adjuvant chemotherapy Status: Acute
--- NOTE | 2018-05-06 10:17 | PQF ---
PROVIDER RESPONSE TEXT: Provider was unable to determine a response for this query. REVIEWER QUERY TEXT: Anemia Type Iron Deficiency Anemia from chronic GI blood loss is documented in the Medical Record. Please specif y the cause (includes suspected or probable cause) if known or unable to determine Documentation of multiple admissions for iron deficiency anemia. Has an area in the gastric cardia wi th marked hyperemia and vascular congestion. Rx: Transfusion of PRBC, Iron. Refuses EGD The patient's Clinical Indicators include: Rx: PRBC, Iron Query created by: Bree Cuellar on 04/15/2018 10:03 AM Electronically signed by: Scotty Coombs 05/06/2018 10:14 AM
== END 2018-04-16 14:26 | disposition home or self-care (01) | DRG 663 ==
LOC: H.ER 18:19 → H.ERHOLD 19:38 → H.TEL 21:20 → OBSVTOIN 04-13 09:35
PROVIDERS: ADMIT Family Medicine; ATTEND Family Medicine
PROC: 30233N1 Transfusion of Nonautologous Red Blood Cells into Peripheral Vein, Percutaneous Approach (ICD-10-PCS; 2018-04-10)
PROC: 3E02340 Introduction of Influenza Vaccine into Muscle, Percutaneous Approach (ICD-10-PCS; principal; 2018-04-11)
DX: D50.0 Iron deficiency anemia secondary to blood loss (chronic) (principal); D61.818 Other pancytopenia; K76.6 Portal hypertension; R16.1 Splenomegaly, not elsewhere classified; K74.60 Unspecified cirrhosis of liver; E11.9 Type 2 diabetes mellitus without complications; I10 Essential (primary) hypertension; K92.2 Gastrointestinal hemorrhage, unspecified; J44.9 Chronic obstructive pulmonary disease, unspecified; K29.70 Gastritis, unspecified, without bleeding; E78.5 Hyperlipidemia, unspecified; Z23 Encounter for immunization; E78.00 Pure hypercholesterolemia, unspecified; F32.9 Major depressive disorder, single episode, unspecified; E03.9 Hypothyroidism, unspecified; Z85.038 Personal history of other malignant neoplasm of large intestine; Z92.21 Personal history of antineoplastic chemotherapy; E66.9 Obesity, unspecified; Z68.30 Body mass index [BMI] 30.0-30.9, adult; R19.7 Diarrhea, unspecified; F41.9 Anxiety disorder, unspecified; H54.62 Unqualified visual loss, left eye, normal vision right eye

== ENCOUNTER 2018-07-21 14:03 | Inpatient (IN) | payer MEDICAID ==
[2018-07-21 14:03] VITALS: BMI 40.1
[2018-07-21] MEDS ORDERED: Sodium Chloride 0.9% 1,000 ML IV STA (14:27)
--- NOTE | 2018-07-21 14:31 | ED PDOC ---
HPI: Chest Pain Time Seen by Provider: 07/21/18 14:14 Chief Complaint (Nursing): High Blood Sugar Chief Complaint (Provider): Chest Pain History Per: Patient History/Exam Limitations: no limitations Onset/Duration Of Symptoms: Other (2 epsiodes at home ) Current Symptoms Are (Timing): Better Quality: "Pain" Additional Complaint(s): 62 year old female with PMHx of diabetes, colon cancer, gastritis and asthma presents to the ED for an evaluation of chest pain. Patient reports of 2 episodes of chest pain at home. She took Nytol for relief and states the chest pain resolved. Patient is also concerned her blood sugar is high. Otherwise, she denies fever, chills, rash, cough, shortness of breath, nausea, vomiting, diarrhea, nausea, abdominal pain, dysuria, frequency, incontinence, hematuria, back pain, weakness, numbness, tingling. Currently, patient denies chest pain in the ED. PCP: Sravan Hillman Past Medical History Reviewed: Historical Data, Nursing Documentation, Vital Signs Vital Signs: Last Vital Signs Temp 97.0 F L 07/21/18 14:07 Pulse 88 07/21/18 14:07 Resp 16 07/21/18 14:07 BP 101/47 L 07/21/18 14:07 Pulse Ox 100 07/21/18 14:07 - Medical History PMH: Anemia, Anxiety, Arthritis, Asthma, COPD, Depression, Diabetes, Gastritis, HTN, Hypercholesterolemia, Hyperlipidemia, Hypothyroidism, Peripheral Edema, Rheumatoid Arthritis Denies: Bronchitis, Hepatitis, HIV, Hyperthyroidism, Chronic Kidney Disease, Seizures, Sexually Transmitted Disease - Surgical History Surgical History: Appendectomy, Cholecystectomy, Hernia Repair Denies: Pacemaker - Family History Family History: States: Unknown Family Hx, Hypertension - Social History Current smoker - smoking cessation education provided: No Alcohol: None Drugs: Denies - Immunization History Hx Tetanus Toxoid Vaccination: No Hx Influenza Vaccination: Yes Hx Pneumococcal Vaccination: No - Home Medications Home Medications: Ambulatory Orders Medication Instructions Recorded Albuterol HFA [Ventolin HFA 90 1 puff IH DAILY 06/25/18 mcg/actuation (8 g)] Ascorbate Calcium [Vitamin C] 500 mg PO DAILY 06/25/18 Atorvastatin [Lipitor] 20 mg PO HS 06/25/18 Cholestyramine/Aspartame 4 gm PO DAILY 06/25/18 [Cholestyramine Light Powder] Famotidine [Pepcid] 40 mg PO DAILY 06/25/18 Gabapentin [Neurontin] 300 mg PO BID 06/25/18 Insulin Lispro Mix 75/25 [HumaLOG 15 units SC BID 06/25/18 Mix 75/25] Mirtazapine [Remeron] 30 mg PO HS 06/25/18 Pramipexole Di-HCl [Mirapex] 0.5 mg PO HS PRN 06/25/18 Spironolactone [Aldactone] 50 mg PO BID 06/25/18 Oseltamivir Cap [Tamiflu Cap] 75 mg PO BID #4 capsule 06/29/18 traMADol [Ultram] 50 mg PO Q6 PRN #15 tab 06/29/18 - Allergies Allergies/Adverse Reactions: Allergies Allergy/AdvReac Type Severity Reaction Status Date / Time shrimp Allergy RASH Verified 07/21/18 14:07 shellfish derived AdvReac RASH Verified 07/21/18 14:07 Review of Systems ROS Statement: Except As Marked, All Systems Reviewed And Found Negative Constitutional: Negative for: Fever, Chills Cardiovascular: Negative for: Chest Pain Respiratory: Negative for: Cough, Shortness of Breath Gastrointestinal: Negative for: Nausea, Vomiting, Abdominal Pain, Diarrhea Genitourinary Female: Negative for: Dysuria, Frequency, Incontinence, Hematuria Musculoskeletal: Negative for: Back Pain Skin: Negative for: Rash Neurological: Negative for: Weakness, Numbness, Other (tingling) Physical Exam - Reviewed Nursing Documentation Reviewed: Yes Vital Signs Reviewed: Yes - Physical Exam Appears: Positive for: Uncomfortable Head Exam: Positive for: ATRAUMATIC, NORMAL INSPECTION, NORMOCEPHALIC Skin: Positive for: Normal Color, Warm, Dry. Negative for: Rash Eye Exam: Positive for: EOMI, Normal appearance, PERRL Neck: Positive for: Normal, Painless ROM, Supple. Negative for: Decreased ROM Cardiovascular/Chest: Positive for: Regular Rate, Rhythm. Negative for: Murmur Respiratory: Positive for: Normal Breath Sounds. Negative for: Decreased Breath Sounds, Respiratory Distress Gastrointestinal/Abdominal: Positive for: Normal Exam, Soft. Negative for: Tenderness, Guarding, Rebound Back: Positive for: Normal Inspection. Negative for: L CVA Tenderness, R CVA Tenderness Extremity: Positive for: Normal ROM, Other (4/5 bilateral leg strength that's chronic for patient). Negative for: Tenderness, Pedal Edema, Deformity Neurologic/Psych: Positive for: Alert, Oriented (x3) - Laboratory Results Result Diagrams: 07/21/18 15:30 Lab Results: 6.4 hg - ECG ECG: Positive for: Interpreted By Me, Viewed By Me ECG Rhythm: Positive for: Normal QRS, Sinus Rhythm, Nonspecific Changes O2 Sat by Pulse Oximetry: 100 (RA) Pulse Ox Interpretation: Normal - Radiology X-Ray: Read By Radiologist X-Ray Interpretation: No Acute Disease - Progress ED Course And Treament: 1620: Stable. Pt. with hx of anemia and last transfusion in Jun 26. Will need admit and transfuse. AAOx3. Pain free. Spoke with Dr. Coombs who will admit. Medical Decision Making Medical Decision Making: Time: 142 Plan: --ABO/RH Type --Type and screen --Venous blood gas --EKG --CMP --Urine Dip --CBC w/ Differential --PTT --Prothrombin Time --Chest portable [RAD] --Aspirin 325mg --Normal Saline 500mls/hr --Reevaluation Time: 1600 FINDINGS: LUNGS: Improvement in interstitial lung disease. No focal infiltrates or masses. PLEURA: No significant pleural effusion identified, no pneumothorax apparent. CARDIOVASCULAR: No atherosclerotic calcification present Normal. OSSEOUS STRUCTURES: No significant abnormalities. VISUALIZED UPPER ABDOMEN: Normal. OTHER FINDINGS: None. IMPRESSION: Chronic interstitial lung disease. Findings seen on 03/18/2018. Interval improvement compared to 06/25/2018. Scribe Attestation: Documented by Miya Mccoy acting as a scribe for Deven Goodman MD Provider Scribe Attestation: All medical record entries made by the Scribe were at my direction and person ally dictated by me. I have reviewed the chart and agree that the record accurately reflects my personal performance of the history, physical exam, medical decision making, and the department course for this patient. I have also personally directed, reviewed, and agree with the discharge instructions and disposition. Disposition - Clinical Impression Clinical Impression: Hyperglycemia, Anemia, Chest pain - Patient ED Disposition Is Patient to be Admitted: Yes Counseled Patient/Family Regarding: Studies Performed, Diagnosis - Disposition Disposition Time: 16:00 Condition: FAIR Forms: CareStudyApps (Mauritian) - Pt Status Changed To: Hospital Disposition Of: Observation - POA Present On Arrival: Poor Glycemic Control
[2018-07-21 16:03] LABS: EOS # 0.1 K/uL (0.0-0.7); EOS % 4.9 % (0.0-4.0); LYMPH # 0.6 K/uL (1.0-4.3); LYMPH % 21.1 % (20.0-40.0); MEAN CELL VOLUME 93.9 fl (81.0-99.0); MEAN CORPUSCULAR HEMOGLOBIN 27.5 pg (27.0-31.0); MEAN CORPUSCULAR HGB CONC 29.3 g/dL (33.0-37.0); MONO # 0.2 K/uL (0.0-0.8); MONO % 5.9 % (0.0-10.0); NEUT # 1.8 K/uL (1.8-7.0); NEUT % 67.1 % (50.0-75.0); NRBC % 0.1 % (0.0-0.0); RBC 2.34 Mil/uL (3.80-5.20); RED CELL DISTRIBUTION WIDTH 19.5 % (11.5-14.5)
--- NOTE | 2018-07-21 16:03 | RAD ---
Date of service: 07/21/2018 HISTORY: pain COMPARISON: 03/18/2018 and 06/25/2018 FINDINGS: LUNGS: Improvement in interstitial lung disease. No focal infiltrates or masses. PLEURA: No significant pleural effusion identified, no pneumothorax apparent. CARDIOVASCULAR: No atherosclerotic calcification present Normal. OSSEOUS STRUCTURES: No significant abnormalities. VISUALIZED UPPER ABDOMEN: Normal. OTHER FINDINGS: None. IMPRESSION: Chronic interstitial lung disease. Findings seen on 03/18/2018. Interval improvement compared to 06/25/2018.
[2018-07-21 16:04] LABS: HEMOGLOBIN 6.4 g/dL (12.0-16.0)
[2018-07-21 16:11] LABS: INR 1.3; PROTHROMBIN TIME 15.1 Seconds (9.8-13.1); WHITE BLOOD COUNT 2.7 K/uL (4.8-10.8)
[2018-07-21 16:14] LABS: PARTIAL THROMBOPLASTIN TIME 37.6 Seconds (25.6-37.1)
[2018-07-21 16:28] LABS: ALB/GLOB RATIO 0.9 (1.0-2.1); ALBUMIN 3.4 g/dL (3.5-5.0); ALT/SGPT 35 U/L (9-52); AST/SGOT 49 U/L (14-36); BLOOD UREA NITROGEN 13 mg/dl (7-17); CALCIUM 8.3 mg/dL (8.4-10.2); GFR NON-AFRICAN AMERICAN > 60
--- NOTE | 2018-07-21 20:15 | CP.PCM.CON ---
History of Present Illness - History of Present Illness History of Present Illness: 62 year old female with a history of DM, HTN, HL, hypothyroid, colon cancer s/p surgery and adjuvant chemotherapy in 2005, presenting with chest pain, found to have pancytopenia with anemia The patient is known to me from her prior ho spitalization. At the time she was GI bleeding and found to have iron deficiency anemia. She was treated with PRBC transfusion and IV iron. She notes most recently experiencing epistaxis for 2 days. She began to have chest pain most recently and came to the ER. Past medical history: DM, HTN, HL, hypothyroid, colon cancer s/p surgery and adjuvant chemotherapy in 2005. Past surgical history: hemicolectomy, cholecystectomy, hernia repair Family history: Denies hematologic and oncologic problems Social history: Denies tobacco, alcohol, and illicit drug use. Allergies: NKA Review of systems: All remaining review of systems including HEENT, cardiovascular, respiratory, gastrointestinal, genitourinary, musculoskeletal, dermatologic, neurologic, and psychiatric are negative unless mentioned in the HPI Past Patient History - Past Medical History & Family History Past Medical History?: Yes - Past Social History Alcohol: None Drugs: Denies - CARDIAC Hx Hypercholesterolemia: Yes Hx Hypertension: Yes Hx Pacemaker: No Hx Peripheral Edema: Yes - PULMONARY Hx Asthma: Yes Hx Bronchitis: No Hx Chronic Obstructive Pulmonary Disease (COPD): Yes - NEUROLOGICAL Hx Seizures: No - HEENT Hx HEENT Problems: Yes Hx Cataracts: Yes (Right eye) Hx Epistaxis: Yes Hx Glaucoma: Yes (Left eye) - RENAL Hx Chronic Kidney Disease: No - ENDOCRINE/METABOLIC Hx Hyperthyroidism: No Hx Hypothyroidism: Yes - HEMATOLOGICAL/ONCOLOGICAL Hx Anemia: Yes Hx Human Immunodeficiency Virus (HIV): No - INTEGUMENTARY Hx Dermatological Problems: No - MUSCULOSKELETAL/RHEUMATOLOGICAL Hx Arthritis: Yes Hx Rheumatoid Arthritis: Yes - GASTROINTESTINAL Hx Gastritis: Yes - GENITOURINARY/GYNECOLOGICAL Hx Sexually Transmitted Disorders: No - PSYCHIATRIC Hx Anxiety: Yes Hx Depression: Yes - SURGICAL HISTORY Hx Appendectomy: Yes Hx Cholecystectomy: Yes - ANESTHESIA Hx Anesthesia: Yes Hx Anesthesia Reactions: No Hx Malignant Hyperthermia: No Meds Allergies/Adverse Reactions: Allergies Allergy/AdvReac Type Severity Reaction Status Date / Time shrimp Allergy RASH Verified 07/21/18 14:07 shellfish derived AdvReac RASH Verified 07/21/18 14:07 - Medications Medications: Current Medications Atorvastatin Calcium (Lipitor) 20 mg PO HS [facility] Cyanocobalamin (Vitamin B12 1000 Mcg Tab) 1,000 mcg PO DAILY [facility] Famotidine (Pepcid) 40 mg PO HS [facility] Ferrous Sulfate (Feosol) 325 mg PO Q8 [facility] Gabapentin (Neurontin) 300 mg PO Q8 [facility] Home Med (Insulin Aspart, Recombinant [Novolog]) 15 unit SC ACTID [facility] Home Med (Insulin Glargine,Hum.Rec.Anlog [Basaglar Kwikpen U-100]) 34 unit SC HS [facility] Levothyroxine Sodium (Synthroid) 175 mcg PO DAILY@0630 [facility] Lisinopril (Zestril) 20 mg PO DAILY [facility] Magnesium Oxide (Mag-Ox) 400 mg PO DAILY [facility] Mirtazapine (Remeron Odt) 30 mg PO HS [facility] Pramipexole Dihydrochloride (Mirapex) 0.5 mg PO HS [facility] Spironolactone (Aldactone) 50 mg PO BID [facility] Physical Exam - Head Exam Head Exam: ATRAUMATIC - Eye Exam Eye Exam: Normal appearance - ENT Exam ENT Exam: Mucous Membranes Dry - Respiratory Exam Respiratory Exam: NORMAL BREATHING PATTERN - Cardiovascular Exam Cardiovascular Exam: +S1, +S2 - GI/Abdominal Exam GI & Abdominal Exam: Normal Bowel Sounds - Extremities Exam Extremities exam: Positive for: pedal edema - Neurological Exam Neurological exam: Oriented x3 - Psychiatric Exam Psychiatric exam: Normal Affect, Normal Mood - Skin Skin Exam: Warm Results - Vital Signs Recent Vital Signs: Last Vital Signs Temp 98.1 F 07/21/18 18:30 Pulse 81 07/21/18 18:30 Resp 16 07/21/18 18:30 BP 117/56 L 07/21/18 18:30 Pulse Ox 100 07/21/18 18:30 - Labs Result Diagrams: 07/21/18 15:30 07/21/18 15:30 Labs: Laboratory Results - last 24 hr 07/21/18 07/21/18 07/21/18 15:30 15:30 15:30 WBC 2.7 L RBC 2.34 L Hgb 6.4 L* D Hct 21.9 L MCV 93.9 D MCH 27.5 MCHC 29.3 L RDW 19.5 H Plt Count 94 L MPV 11.0 Neut % (Auto) 67.1 Lymph % (Auto) 21.1 Whiteside % (Auto) 5.9 Eos % (Auto) 4.9 H Baso % (Auto) 1.0 Neut # (Auto) 1.8 Lymph # (Auto) 0.6 L Whiteside # (Auto) 0.2 Eos # (Auto) 0.1 Baso # (Auto) 0.0 PT INR APTT Sodium 137 Potassium 3.8 Chloride 107 Carbon Dioxide 21 L Anion Gap 13 BUN 13 Creatinine 0.5 L Est GFR ( Amer) > 60 Est GFR (Non-Af Amer) > 60 Random Glucose 151 H Calcium 8.3 L Total Bilirubin 0.5 AST 49 H ALT 35 Alkaline Phosphatase 103 Troponin I < 0.0120 Total Protein 7.1 Albumin 3.4 L D Globulin 3.7 Albumin/Globulin Ratio 0.9 L Blood Type A POSITIVE Antibody Screen Negative Crossmatch See Detail BBK History Checked Patient has bt 07/21/18 15:30 WBC RBC Hgb Hct MCV MCH MCHC RDW Plt Count MPV Neut % (Auto) Lymph % (Auto) Whiteside % (Auto) Eos % (Auto) Baso % (Auto) Neut # (Auto) Lymph # (Auto) Whiteside # (Auto) Eos # (Auto) Baso # (Auto) PT 15.1 H INR 1.3 APTT 37.6 H Sodium Potassium Chloride Carbon Dioxide Anion Gap BUN Creatinine Est GFR ( Amer) Est GFR (Non-Af Amer) Random Glucose Calcium Total Bilirubin AST ALT Alkaline Phosphatase Troponin I Total Protein Albumin Globulin Albumin/Globulin Ratio Blood Type Antibody Screen Crossmatch BBK History Checked Assessment & Plan (1) Pancytopenia Assessment and Plan: liver cirrhosis with splenomegaly splenic sequestration, prior iron deficiency will check iron stores and replete with IV iron if deficient transfusions support Status: Chronic (2) Colon cancer Assessment and Plan: in remission Thank you for this interesting consult. Status: Acute
[2018-07-21] MEDS ORDERED: Insulin Detemir 100 Units/ml Inj SC SCH (22:00)
[2018-07-21] MEDS: Mirtazapine 30 MG ODT PO SCH (23:05)
[2018-07-22] MEDS ORDERED: Influenza Vaccine (5 YR UP)/PF 60 MCG/0.5 ML SYR IM ONE (00:07)
[2018-07-22 05:40] LABS: ALB/GLOB RATIO 0.9 (1.0-2.1); ALT/SGPT 39 U/L (9-52); AST/SGOT 48 U/L (14-36); BLOOD UREA NITROGEN 11 mg/dl (7-17); CALCIUM 8.3 mg/dL (8.4-10.2); GFR NON-AFRICAN AMERICAN > 60
[2018-07-22] MEDS ORDERED: Pneumococcal 23-Valent Vaccine IM ONE (06:00)
[2018-07-22] MEDS: Levothyroxine 175 MCG TAB PO SCH (06:53)
[2018-07-22] MEDS: Insulin Lispro (humaLOG) 100 Units/ml Inj SC SCH ×3 (06:53→16:55)
[2018-07-22] MEDS: Magnesium Oxide 400 mg Tab UD PO SCH (08:55)
[2018-07-22] MEDS ORDERED: Patient's Own Med (Famotidine [Pepcid] 40 MG) PO SCH (09:00)
[2018-07-22 09:28] LABS: HEMOGLOBIN 7.9 g/dL (12.0-16.0); MEAN CELL VOLUME 88.7 fl (81.0-99.0); MEAN CORPUSCULAR HEMOGLOBIN 28.6 pg (27.0-31.0); MEAN CORPUSCULAR HGB CONC 32.3 g/dL (33.0-37.0); RBC 2.77 Mil/uL (3.80-5.20); WHITE BLOOD COUNT 5.2 K/uL (4.8-10.8)
[2018-07-22] MEDS ORDERED: guaiFENesin DM 200 mg-20 mg/10 ml UD PO PRN (10:10)
--- NOTE | 2018-07-22 11:17 | CARD ---
APPROVED REPORT Date of service: 07/21/2018 EKG Measurement Heart [id number] <Conclusion> Normal sinus rhythm ST & T wave abnormality, consider inferior ischemia Abnormal ECG
[2018-07-22] MEDS: Mirtazapine 30 MG ODT PO SCH (21:08)
[2018-07-22] MEDS: Insulin Detemir 100 Units/ml Inj SC SCH (22:00)
--- NOTE | 2018-07-23 02:22 | CP.PCM.PN ---
Subjective - Date & Time of Evaluation Date of Evaluation: 07/22/18 Time of Evaluation: 08:00 - Subjective Subjective: Pt seen and assessed at bedside. Discussed plan of care with staff. Pt reports feeling better after receiving 2 units PRBC last night. No chest pain or SOB reported. Pt able to stand and ambulate with assistance. Review of Systems - EENT Eyes: As Per HPI Ears: As Per HPI Nose/Mouth/Throat: As Per HPI - Breasts Breasts: As Per HPI - Cardiovascular Cardiovascular: As Per HPI - Respiratory Respiratory: As Per HPI - Gastrointestinal Gastrointestinal: As Per HPI - Reproductive: Female Reproductive:Female: As Per HPI - Menstruation Menstruation: As Per HPI - Musculoskeletal Musculoskeletal: As Par HPI - Integumentary Integumentary: As Per HPI - Neurological Neurological: As Per HPI - Psychiatric Psychiatric: As Per HPI - Endocrine Endocrine: As Per HPI - Hematologic/Lymphatic Hematologic: As Per HPI Objective - Vital Signs/Intake and Output Vital Signs (last 24 hours): Temp Pulse Resp BP Pulse Ox 98.5 F 87 19 108/69 97 07/23/18 01:10 07/23/18 01:10 07/23/18 01:10 07/23/18 01:10 07/23/18 01:06 Intake and Output: 07/22/18 07/23/18 18:59 06:59 Intake Total 425 Balance 425 - Medications Medications: Current Medications Acetaminophen (Tylenol 325mg Tab) 650 mg PO Q6 PRN PRN Reason: Headache Last Admin: 07/22/18 13:13 Dose: 650 mg Atorvastatin Calcium (Lipitor) 20 mg PO HS [facility] Last Admin: 07/22/18 21:07 Dose: 20 mg Cyanocobalamin (Vitamin B12 1000 Mcg Tab) 1,000 mcg PO DAILY [facility] Last Admin: 07/22/18 08:55 Dose: 1,000 mcg Famotidine (Pepcid) 40 mg PO HS [facility] Last Admin: 07/22/18 21:07 Dose: 40 mg Ferrous Sulfate (Feosol) 325 mg PO Q8 [facility] Last Admin: 07/23/18 00:07 Dose: 325 mg Gabapentin (Neurontin) 300 mg PO Q8 [facility] Last Admin: 07/22/18 16:56 Dose: 300 mg Guaifenesin/Dextromethorphan (Robitussin Dm) 10 ml PO Q4 PRN PRN Reason: Cough Last Admin: 07/22/18 16:56 Dose: 10 ml Insulin Detemir (Levemir) 30 units SC [facility] Last Admin: 07/22/18 22:00 Dose: 30 units Insulin Human Lispro (Humalog) 15 units SC TIDAC [facility] Last Admin: 07/22/18 16:55 Dose: Not Given Levothyroxine Sodium (Synthroid) 175 mcg PO DAILY@0630 [facility] Last Admin: 07/22/18 06:53 Dose: 175 mcg Lisinopril (Zestril) 20 mg PO DAILY [facility] Last Admin: 07/22/18 08:56 Dose: 20 mg Magnesium Oxide (Mag-Ox) 400 mg PO DAILY [facility] Last Admin: 07/22/18 08:55 Dose: 400 mg Mirtazapine (Remeron Odt) 30 mg PO [facility] Last Admin: 07/22/18 21:08 Dose: 30 mg Pramipexole Dihydrochloride (Mirapex) 0.5 mg PO [facility] Last Admin: 07/22/18 21:07 Dose: 0.5 mg Spironolactone (Aldactone) 50 mg PO BID [facility] Last Admin: 07/22/18 16:58 Dose: 50 mg - Labs Labs: 07/22/18 09:11 07/22/18 04:25 PT 15.1 Seconds (9.8-13.1) H 07/21/18 15:30 INR 1.3 07/21/18 15:30 APTT 37.6 Seconds (25.6-37.1) H 07/21/18 15:30 - Constitutional Appears: Well - Head Exam Head Exam: NORMOCEPHALIC - Eye Exam Eye Exam: Normal appearance - ENT Exam ENT Exam: Mucous Membranes Moist - Neck Exam Neck Exam: Full ROM - Respiratory Exam Respiratory Exam: Clear to Ausculation Bilateral - Cardiovascular Exam Cardiovascular Exam: REGULAR RHYTHM, +S1, +S2 - GI/Abdominal Exam GI & Abdominal Exam: Soft, Normal Bowel Sounds - Extremities Exam Extremities Exam: Full ROM, Pedal Edema - Back Exam Back Exam: Full ROM, NORMAL INSPECTION - Neurological Exam Neurological Exam: Alert, Awake, Oriented x3 - Psychiatric Exam Psychiatric exam: Normal Mood - Skin Skin Exam: Pallor Assessment and Plan (1) Anemia Assessment & Plan: Assessment/Impression/Major problems now: 1.) Symptomatic Anemia -hgb and hct on admission were 6.4/21.9. Received 2 units PRBC overnight. -Iron deficiency anemia as noted in the past. -Hem/onc consult appreciated. -repeat CBC is pending at this time; if hgb remains under 8, pt may need a third unit of PRBC. Status: Chronic
[2018-07-23] MEDS: Levothyroxine 175 MCG TAB PO SCH (05:58)
[2018-07-23 06:10] LABS: MEAN CELL VOLUME 91.7 fl (81.0-99.0); MEAN CORPUSCULAR HEMOGLOBIN 29.4 pg (27.0-31.0); MEAN CORPUSCULAR HGB CONC 32.1 g/dL (33.0-37.0); RBC 2.73 Mil/uL (3.80-5.20); RED CELL DISTRIBUTION WIDTH 17.8 % (11.5-14.5); WHITE BLOOD COUNT 4.9 K/uL (4.8-10.8)
[2018-07-23 06:54] LABS: ALB/GLOB RATIO 0.8 (1.0-2.1); ALBUMIN 2.8 g/dL (3.5-5.0); ALT/SGPT 26 U/L (9-52); AST/SGOT 41 U/L (14-36); BLOOD UREA NITROGEN 9 mg/dl (7-17); CALCIUM 7.8 mg/dL (8.4-10.2); GFR NON-AFRICAN AMERICAN > 60
[2018-07-23] MEDS: Insulin Lispro (humaLOG) 100 Units/ml Inj SC SCH ×3 (07:30→17:00)
[2018-07-23] MEDS: Magnesium Oxide 400 mg Tab UD PO SCH (09:31)
--- NOTE | 2018-07-23 17:23 | CP.PCM.PN ---
Subjective - Date & Time of Evaluation Date of Evaluation: 07/23/18 Time of Evaluation: 11:00 - Subjective Subjective: patient seen and examined at bedside. Interim events noted still feels weak/lightheaded. denies cp/sob/fever/chills. available diagnostic data reviewed Objective Vital Signs Stable - Constitutional Appears: Non-toxic, No Acute Distress - Head Exam Head Exam: NORMAL INSPECTION - Eye Exam Eye Exam: Normal appearance - Respiratory Exam Respiratory Exam: NORMAL BREATHING PATTERN - Cardiovascular Exam Cardiovascular Exam: +S1, +S2 - GI/Abdominal Exam GI & Abdominal Exam: Soft - Neurological Exam Neurological Exam: Alert, Awake - Psychiatric Exam Psychiatric exam: Normal Affect, Normal Mood - Skin Skin Exam: Normal Color, Warm Assessment and Plan monitor vitals monitor labs Cont meds Cont tx consultants appreciated input IV iron rest of plan as ordered Assessment and Plan (1) Anemia Status: Chronic (2) Iron deficiency Status: Acute (3) Lightheaded Status: Acute
[2018-07-23] MEDS: Mirtazapine 30 MG ODT PO SCH (21:13)
--- NOTE | 2018-07-23 21:33 | CP.PCM.PN ---
Subjective - Date & Time of Evaluation Date of Evaluation: 07/22/18 Time of Evaluation: 12:00 - Subjective Subjective: Feeling better s/p PRBC transfusion Objective - Vital Signs/Intake and Output Vital Signs (last 24 hours): Temp Pulse Resp BP Pulse Ox 99.1 F 88 17 109/68 98 07/23/18 19:26 07/23/18 19:26 07/23/18 19:26 07/23/18 19:26 07/23/18 19:26 - Medications Medications: Current Medications Acetaminophen (Tylenol 325mg Tab) 650 mg PO Q6 PRN PRN Reason: Headache Last Admin: 07/23/18 04:14 Dose: 650 mg Atorvastatin Calcium (Lipitor) 20 mg PO [facility] Last Admin: 07/23/18 21:12 Dose: 20 mg Cyanocobalamin (Vitamin B12 1000 Mcg Tab) 1,000 mcg PO DAILY [facility] Last Admin: 07/23/18 09:30 Dose: 1,000 mcg Famotidine (Pepcid) 40 mg PO [facility] Last Admin: 07/23/18 21:13 Dose: 40 mg Gabapentin (Neurontin) 300 mg PO Q8 [facility] Last Admin: 07/23/18 17:39 Dose: 300 mg Guaifenesin/Dextromethorphan (Robitussin Dm) 10 ml PO Q4 PRN PRN Reason: Cough Last Admin: 07/22/18 16:56 Dose: 10 ml Iron Sucrose 200 mg/ Sodium (Chloride) 110 mls @ 110 mls/hr IVPB DAILY [facility] Last Admin: 07/23/18 12:15 Dose: 110 mls/hr Insulin Detemir (Levemir) 30 units SC HS [facility] Last Admin: 07/22/18 22:00 Dose: 30 units Insulin Human Lispro (Humalog) 15 units SC TIDAC [facility] Last Admin: 07/23/18 17:00 Dose: 15 units Levothyroxine Sodium (Synthroid) 175 mcg PO DAILY@0630 [facility] Last Admin: 07/23/18 05:58 Dose: 175 mcg Lisinopril (Zestril) 20 mg PO DAILY [facility] Last Admin: 07/23/18 09:30 Dose: 20 mg Magnesium Oxide (Mag-Ox) 400 mg PO DAILY [facility] Last Admin: 07/23/18 09:31 Dose: 400 mg Mirtazapine (Remeron Odt) 30 mg PO HS [facility] Last Admin: 07/23/18 21:13 Dose: 30 mg Pramipexole Dihydrochloride (Mirapex) 0.5 mg PO HS [facility] Last Admin: 07/23/18 21:12 Dose: 0.5 mg Spironolactone (Aldactone) 50 mg PO BID [facility] Last Admin: 07/23/18 17:39 Dose: 50 mg - Labs Labs: 07/23/18 05:30 07/23/18 05:30 PT 15.1 Seconds (9.8-13.1) H 07/21/18 15:30 INR 1.3 07/21/18 15:30 APTT 37.6 Seconds (25.6-37.1) H 07/21/18 15:30 Assessment and Plan (1) Pancytopenia Assessment & Plan: liver cirrhosis with splenomegaly splenic sequestration, iron deficiency PRBC transfusion support IV iron Status: Chronic (2) Colon cancer Assessment & Plan: in remission Status: Acute
--- NOTE | 2018-07-23 21:35 | CP.PCM.PN ---
Subjective - Date & Time of Evaluation Date of Evaluation: 07/23/18 Time of Evaluation: 13:00 - Subjective Subjective: Feels dizzy today. Objective - Vital Signs/Intake and Output Vital Signs (last 24 hours): Temp Pulse Resp BP Pulse Ox 99.1 F 88 17 109/68 98 07/23/18 19:26 07/23/18 19:26 07/23/18 19:26 07/23/18 19:26 07/23/18 19:26 - Medications Medications: Current Medications Acetaminophen (Tylenol 325mg Tab) 650 mg PO Q6 PRN PRN Reason: Headache Last Admin: 07/23/18 04:14 Dose: 650 mg Atorvastatin Calcium (Lipitor) 20 mg PO [facility] Last Admin: 07/23/18 21:12 Dose: 20 mg Cyanocobalamin (Vitamin B12 1000 Mcg Tab) 1,000 mcg PO DAILY [facility] Last Admin: 07/23/18 09:30 Dose: 1,000 mcg Famotidine (Pepcid) 40 mg PO [facility] Last Admin: 07/23/18 21:13 Dose: 40 mg Gabapentin (Neurontin) 300 mg PO Q8 [facility] Last Admin: 07/23/18 17:39 Dose: 300 mg Guaifenesin/Dextromethorphan (Robitussin Dm) 10 ml PO Q4 PRN PRN Reason: Cough Last Admin: 07/22/18 16:56 Dose: 10 ml Iron Sucrose 200 mg/ Sodium (Chloride) 110 mls @ 110 mls/hr IVPB DAILY [facility] Last Admin: 07/23/18 12:15 Dose: 110 mls/hr Insulin Detemir (Levemir) 30 units SC [facility] Last Admin: 07/22/18 22:00 Dose: 30 units Insulin Human Lispro (Humalog) 15 units SC TIDAC [facility] Last Admin: 07/23/18 17:00 Dose: 15 units Levothyroxine Sodium (Synthroid) 175 mcg PO DAILY@0630 [facility] Last Admin: 07/23/18 05:58 Dose: 175 mcg Lisinopril (Zestril) 20 mg PO DAILY [facility] Last Admin: 07/23/18 09:30 Dose: 20 mg Magnesium Oxide (Mag-Ox) 400 mg PO DAILY [facility] Last Admin: 07/23/18 09:31 Dose: 400 mg Mirtazapine (Remeron Odt) 30 mg PO [facility] Last Admin: 07/23/18 21:13 Dose: 30 mg Pramipexole Dihydrochloride (Mirapex) 0.5 mg PO HS [facility] Last Admin: 07/23/18 21:12 Dose: 0.5 mg Spironolactone (Aldactone) 50 mg PO BID [facility] Last Admin: 07/23/18 17:39 Dose: 50 mg - Labs Labs: 07/23/18 05:30 07/23/18 05:30 PT 15.1 Seconds (9.8-13.1) H 07/21/18 15:30 INR 1.3 07/21/18 15:30 APTT 37.6 Seconds (25.6-37.1) H 07/21/18 15:30 - Head Exam Head Exam: ATRAUMATIC - Eye Exam Eye Exam: Normal appearance - ENT Exam ENT Exam: Mucous Membranes Dry - Respiratory Exam Respiratory Exam: NORMAL BREATHING PATTERN - Cardiovascular Exam Cardiovascular Exam: +S1, +S2 - GI/Abdominal Exam GI & Abdominal Exam: Normal Bowel Sounds Assessment and Plan (1) Pancytopenia Assessment & Plan: iver cirrhosis with splenomegaly splenic sequestration, prior iron deficiency will check iron stores and replete with IV iron if deficient transfusions support PRN outpatient capsule endoscopy Status: Chronic (2) Colon cancer Assessment & Plan: in remission Status: Acute
[2018-07-23] MEDS: Insulin Detemir 100 Units/ml Inj SC SCH (22:13)
[2018-07-24 05:18] LABS: HEMOGLOBIN 8.7 g/dL (12.0-16.0); MEAN CELL VOLUME 90.6 fl (81.0-99.0); MEAN CORPUSCULAR HEMOGLOBIN 29.5 pg (27.0-31.0); MEAN CORPUSCULAR HGB CONC 32.6 g/dL (33.0-37.0); RBC 2.95 Mil/uL (3.80-5.20); RED CELL DISTRIBUTION WIDTH 17.9 % (11.5-14.5); WHITE BLOOD COUNT 4.1 K/uL (4.8-10.8)
[2018-07-24 05:41] LABS: ALB/GLOB RATIO 0.9 (1.0-2.1); ALT/SGPT 23 U/L (9-52); AST/SGOT 37 U/L (14-36); BLOOD UREA NITROGEN 12 mg/dl (7-17); CALCIUM 8.4 mg/dL (8.4-10.2); GFR NON-AFRICAN AMERICAN > 60
[2018-07-24] MEDS: Levothyroxine 175 MCG TAB PO SCH (06:16)
[2018-07-24] MEDS: Insulin Lispro (humaLOG) 100 Units/ml Inj SC SCH ×2 (07:59→12:26)
[2018-07-24 08:39] VITALS: BP 129/76; PULSE 86; RESP 20; TEMP 98.5; O2SAT 96
[2018-07-24] MEDS: Magnesium Oxide 400 mg Tab UD PO SCH (09:29)
--- NOTE | 2018-07-24 21:45 | CP.PCM.PN ---
Subjective - Date & Time of Evaluation Date of Evaluation: 07/24/18 Time of Evaluation: 10:00 - Subjective Subjective: No complaints. Objective - Vital Signs/Intake and Output Vital Signs (last 24 hours): Temp Pulse Resp BP Pulse Ox 98.5 F 86 20 129/76 96 07/24/18 08:39 07/24/18 08:39 07/24/18 08:39 07/24/18 08:39 07/24/18 08:39 - Labs Labs: 07/24/18 04:25 07/24/18 04:25 PT 15.1 Seconds (9.8-13.1) H 07/21/18 15:30 INR 1.3 07/21/18 15:30 APTT 37.6 Seconds (25.6-37.1) H 07/21/18 15:30 - Head Exam Head Exam: ATRAUMATIC - Eye Exam Eye Exam: Normal appearance - ENT Exam ENT Exam: Mucous Membranes Dry - Respiratory Exam Respiratory Exam: NORMAL BREATHING PATTERN - Cardiovascular Exam Cardiovascular Exam: +S1, +S2 - GI/Abdominal Exam GI & Abdominal Exam: Normal Bowel Sounds Assessment and Plan (1) Pancytopenia Assessment & Plan: iver cirrhosis with splenomegaly splenic sequestration, prior iron deficiency will check iron stores and replete with IV iron if deficient transfusions support PRN outpatient capsule endoscopy Status: Chronic (2) Colon cancer Assessment & Plan: in remission Status: Acute
--- NOTE | 2018-07-27 00:06 | CP.PCM.HP ---
History of Present Illness - History of Present Illness History of Present Illness: 07/22/18- 08:00 CC: Chest pain. HPI: Loan Orozco is a 62 y/o female with a PMH of anemia, DM, colon CA, gastritis, and asthma; she is currently admitted for Anemia and chest pain. On admission her hgb was 6.4, and hct was 21.9. Pt was seen and assessed at bedside. Discussed plan of care with staff. Pt reports feeling better after receiving 2 units PRBC last night. No chest pain or SOB reported. Pt able to stand and ambulate with assistance. PMH: Anemia, Anxiety, Arthritis, Asthma, Colon CA, COPD, Depression, Diabetes, Gastritis, HTN, hypercholesterolemia, hyperlipidemia, hypothyroidism, peripheral edema, rheumatoid arthritis. PSH: Appendectomy, Cholecystectomy, Hernia Repair. Family History: HTN Social history: Non-smoker. Allergies: NKDA. Present on Admission - Present on Admission Any Indicators Present on Admission: No Review of Systems - Review of Systems All systems: reviewed and no additional remarkable complaints except (occasional chest pain and dyspnea. Chronic peripheral edema to BLE.) - Constitutional Constitutional: Weakness - EENT Eyes: As Per HPI Ears: As Per HPI Nose/Mouth/Throat: As Per HPI - Breasts Breasts: As Per HPI - Cardiovascular Cardiovascular: Chest Pain, Dyspnea, Leg Edema - Respiratory Respiratory: Dyspnea - Gastrointestinal Gastrointestinal: As Per HPI - Genitourinary Genitourinary: As Per HPI - Musculoskeletal Musculoskeletal: Muscle Weakness - Integumentary Integumentary: Swelling - Neurological Neurological: As Per HPI - Psychiatric Psychiatric: As Per HPI - Endocrine Endocrine: As Per HPI - Hematologic/Lymphatic Hematologic: As Per HPI Past Patient History - Past Medical History & Family History Past Medical History?: Yes - Past Social History Smoking Status: Never Smoked - CARDIAC Hx Pacemaker: No - PULMONARY Hx Respiratory Disorders: Yes Hx Asthma: Yes Hx Bronchitis: No Hx Chronic Obstructive Pulmonary Disease (COPD): Yes - NEUROLOGICAL Hx Neurological Disorder: No Hx Seizures: No - HEENT Hx HEENT Problems: Yes Hx Cataracts: Yes (right eye) Hx Glaucoma: Yes (left eye) - RENAL Hx Chronic Kidney Disease: No - ENDOCRINE/METABOLIC Hx Endocrine Disorders: Yes Hx Hyperthyroidism: No Hx Hypothyroidism: Yes - HEMATOLOGICAL/ONCOLOGICAL Hx Cancer: Yes - INTEGUMENTARY Hx Dermatological Problems: No - MUSCULOSKELETAL/RHEUMATOLOGICAL Hx Musculoskeletal Disorders: Yes Hx Arthritis: Yes Hx Falls: No Hx Rheumatoid Arthritis: Yes - GASTROINTESTINAL Hx Gastrointestinal Disorders: Yes Hx Gastritis: Yes - GENITOURINARY/GYNECOLOGICAL Hx Genitourinary Disorders: No Hx Sexually Transmitted Disorders: No - PSYCHIATRIC Hx Psychophysiologic Disorder: Yes Hx Anxiety: Yes Hx Depression: Yes Hx Substance Use: No - SURGICAL HISTORY Hx Mastectomy: No - ANESTHESIA Hx Anesthesia: Yes Hx Anesthesia Reactions: No Hx Malignant Hyperthermia: No Meds Home Medications: Home Medication List Medication Instructions Recorded Confirmed Type Fluticasone Propionate [Flonase 9.9 ml NS DAILY #1 spray.susp 07/24/18 Rx Allergy Relief] Promethazine DM [Phenergan DM 10 ml PO Q6 #1 bottle 07/24/18 Rx Syrup] Allergies/Adverse Reactions: Allergies Allergy/AdvReac Type Severity Reaction Status Date / Time shrimp Allergy RASH Verified 07/21/18 14:07 shellfish derived AdvReac RASH Verified 07/21/18 14:07 Physical Exam - Constitutional Appears: Well - Head Exam Head Exam: NORMOCEPHALIC - Eye Exam Eye Exam: Normal appearance, PERRL Pupil Exam: PERRL - ENT Exam ENT Exam: Mucous Membranes Moist, Normal Exam - Neck Exam Neck exam: Positive for: Normal Inspection - Respiratory Exam Respiratory Exam: Decreased Breath Sounds - Cardiovascular Exam Cardiovascular Exam: REGULAR RHYTHM, +S1, +S2 - GI/Abdominal Exam GI & Abdominal Exam: Normal Bowel Sounds, Soft - Extremities Exam Extremities exam: Positive for: pedal edema - Back Exam Back exam: NORMAL INSPECTION - Neurological Exam Neurological exam: Alert, CN II-XII Intact, Oriented x3 - Psychiatric Exam Psychiatric exam: Normal Affect, Normal Mood - Skin Skin Exam: Pallor Results - Vital Signs Recent Vital Signs: Last Vital Signs Temp 98.5 F 07/24/18 08:39 Pulse 86 07/24/18 08:39 Resp 20 07/24/18 08:39 BP 129/76 07/24/18 08:39 Pulse Ox 96 07/24/18 08:39 - Labs Result Diagrams: 07/24/18 04:25 07/24/18 04:25 Labs: Laboratory Results - last 24 hr 07/21/18 15:30 Crossmatch See Detail Assessment & Plan (1) Anemia Assessment and Plan: Assessment/Impression/Major problems now: 07/22/2018 08:00 1.) Symptomatic Anemia -hgb and hct on admission were 6.4/21.9. Received 2 units PRBC overnight. -Iron deficiency anemia as noted in the past. -Hem/onc consult appreciated. -repeat CBC is pending at this time; if hgb remains under 8, pt may need a third unit of PRBC. Status: Chronic - Date & Time Date: 07/22/18 Time: 08:00 Decision To Admit - . Bed Request Type: Telemetry Admitting Physician: Scotty Coombs
--- NOTE | 2018-07-29 19:40 | PQF ---
PROVIDER RESPONSE TEXT: Confirmed and current REVIEWER QUERY TEXT: Conflicting Documentation Clarification Hematology has an additional diagnosis of Pancytopenia. Please clarify in your note if you concur wit h Pancytopenia and document the diagnosis Hematology: Pancytopenia: liver cirrhosis with splenomegaly splenic sequestration, prior iron deficie ncy A single mention or documentation of multiple diagnoses for the same clinical presentation appears in the record. Please clarify the diagnosis/diagnoses. Please also document if the condition is: -- Confirmed and current -- Confirmed, treated and resolved -- Ruled out -- Other, please specify The patient's Clinical Indicators include: Attending: Anemia, Iron Deficiency, Lightheaded Hematology: Pancytopenia: liver cirrhosis with splenomegaly splenic sequestration, prior iron deficie ncy Rx: Iron Infusion, Feosol, Transfusion PRBC, CBC monitoring Query created by: Bree Cuellar on 07/24/2018 7:16 AM Electronically signed by: Scotty Coombs 07/29/2018 7:37 PM
== END 2018-07-24 14:25 | disposition home or self-care (01) | DRG 897 ==
LOC: H.ER 14:03 → H.ERHOLD 16:32 → H.TEL 21:58 → OBSVTOIN 07-23 10:56
PROVIDERS: ADMIT Family Medicine; ATTEND Family Medicine
PROC: 30233N1 Transfusion of Nonautologous Red Blood Cells into Peripheral Vein, Percutaneous Approach (ICD-10-PCS; 2018-07-21)
PROC: 05HY33Z Insertion of Infusion Device into Upper Vein, Percutaneous Approach (ICD-10-PCS; principal; 2018-07-22)
DX: D61.818 Other pancytopenia (principal); E11.65 Type 2 diabetes mellitus with hyperglycemia; K74.60 Unspecified cirrhosis of liver; J44.9 Chronic obstructive pulmonary disease, unspecified; J84.9 Interstitial pulmonary disease, unspecified; D50.9 Iron deficiency anemia, unspecified; Z79.4 Long term (current) use of insulin; M06.9 Rheumatoid arthritis, unspecified; Z85.038 Personal history of other malignant neoplasm of large intestine; K29.70 Gastritis, unspecified, without bleeding; F41.9 Anxiety disorder, unspecified; F32.9 Major depressive disorder, single episode, unspecified; M19.90 Unspecified osteoarthritis, unspecified site; E78.00 Pure hypercholesterolemia, unspecified; E78.5 Hyperlipidemia, unspecified; E03.9 Hypothyroidism, unspecified; I10 Essential (primary) hypertension; Z92.21 Personal history of antineoplastic chemotherapy; R16.1 Splenomegaly, not elsewhere classified

== ENCOUNTER 2018-07-30 13:39 | Inpatient (IN) | payer MEDICARE, MEDICAID ==
[2018-07-30 13:39] VITALS: BMI 40.1
[2018-07-30 15:09] LABS: BASO % 1.4 % (0.0-2.0); EOS # 0.2 K/uL (0.0-0.7); EOS % 4.9 % (0.0-4.0); HEMOGLOBIN 7.3 g/dL (12.0-16.0); LYMPH # 0.6 K/uL (1.0-4.3); LYMPH % 19.2 % (20.0-40.0); MEAN CELL VOLUME 94.3 fl (81.0-99.0); MEAN CORPUSCULAR HEMOGLOBIN 29.5 pg (27.0-31.0); MEAN CORPUSCULAR HGB CONC 31.3 g/dL (33.0-37.0); MEAN PLATELET VOLUME 10.9 fl (7.2-11.7); MONO # 0.2 K/uL (0.0-0.8); MONO % 5.3 % (0.0-10.0); NEUT # 2.1 K/uL (1.8-7.0); NEUT % 69.2 % (50.0-75.0); NRBC % 0.1 % (0.0-0.0); RBC 2.46 Mil/uL (3.80-5.20); RED CELL DISTRIBUTION WIDTH 19.7 % (11.5-14.5); WHITE BLOOD COUNT 3.1 K/uL (4.8-10.8)
[2018-07-30 15:30] LABS: ALB/GLOB RATIO 0.9 (1.0-2.1); ALT/SGPT 24 U/L (9-52); AST/SGOT 35 U/L (14-36); BLOOD UREA NITROGEN 13 mg/dl (7-17); CALCIUM 8.5 mg/dL (8.4-10.2); GFR NON-AFRICAN AMERICAN > 60; LIPASE 54 U/L (23-300)
[2018-07-30] MEDS ORDERED: Sodium Chloride 0.9% 1,000 ML IV STA (15:53)
[2018-07-30] MEDS ORDERED: Sterile Water 10 ML IV ONE (16:01)
--- NOTE | 2018-07-30 16:06 | ED PDOC ---
HPI: Abdomen Time Seen by Provider: 07/30/18 13:51 Chief Complaint (Nursing): Abdominal Pain Chief Complaint (Provider): Abdominal pain History Per: Patient, Top Collar Baster ([id number]) History/Exam Limitations: no limitations Onset/Duration Of Symptoms: Days Outside of [place] travel?: No Additional Complaint(s): 62yo female, history of hypertension, diabetes, colon cancer (remission since 2005), comes to ER for evaluation based on recommendation from her PMD. Patient states she has been having blood in her stool, and is complaining of lower abdominal pain as well. She otherwise denies any fever, chills, chest pain, shortness of breath or vomiting. No additional complaints. PMD: Dr. Coombs Past Medical History Reviewed: Historical Data, Nursing Documentation, Vital Signs Vital Signs: Last Vital Signs Temp 98.1 F 07/30/18 13:44 Pulse 86 07/30/18 13:44 Resp 20 07/30/18 13:44 BP 116/41 L 07/30/18 13:44 Pulse Ox 100 07/30/18 13:44 - Medical History PMH: Anemia, Anxiety, Arthritis, Asthma, COPD, Depression, Diabetes, Gastritis, HTN, Hypercholesterolemia, Hyperlipidemia, Hypothyroidism, Malignancy (colon c ancer in remission 2005), Peripheral Edema, Rheumatoid Arthritis Denies: Bronchitis, Deep Vein Thrombosis, Hepatitis, HIV, Hyperthyroidism, Chronic Kidney Disease, Seizures, Sexually Transmitted Disease - Surgical History Surgical History: Appendectomy, Cholecystectomy, Hernia Repair Denies: Pacemaker Other surgeries: colectomy, SBO repair, left shoulder surgery, lower extremitiy surgeries - Family History Family History: States: Hypertension - Social History Current smoker - smoking cessation education provided: No Alcohol: None Drugs: Denies - Immunization History Hx Tetanus Toxoid Vaccination: No Hx Influenza Vaccination: Yes Hx Pneumococcal Vaccination: No - Home Medications Home Medications: Ambulatory Orders Medication Instructions Recorded RX: Atorvastatin [Lipitor] 20 mg PO HS 06/25/18 RX: Famotidine [Pepcid] 40 mg PO DAILY 06/25/18 RX: Gabapentin [Neurontin] 300 mg PO Q12 06/25/18 RX: Pramipexole Di-HCl [Mirapex] 0.5 mg PO HS 06/25/18 RX: Cyanocobalamin [Vitamin B12 1,000 mcg PO DAILY 07/21/18 1000 mcg Tab] RX: Ferrous Sulfate 325 mg PO Q8 07/21/18 RX: Insulin Aspart, Recombinant 15 unit SC ACB 07/21/18 [Novolog] RX: Insulin Glargine,Hum.rec.anlog 34 unit SC HS 07/21/18 [Basaglar Kwikpen U-100] RX: Levothyroxine [Synthroid] 175 mcg PO DAILY 07/21/18 RX: Lisinopril [Zestril] 20 mg PO DAILY 07/21/18 RX: Magnesium Oxide [Magox 400] 400 mg PO DAILY 07/21/18 RX: Mirtazapine [Remeron] 30 mg PO HS 07/21/18 RX: Sucralfate [Carafate Oral Susp] 10 ml PO TID 07/21/18 Ascorbic Acid [Vitamin C 500 mg 1 tab PO DAILY 07/30/18 Tab] - Allergies Allergies/Adverse Reactions: Allergies Allergy/AdvReac Type Severity Reaction Status Date / Time No Known Allergies Allergy Verified 07/30/18 13:44 Review of Systems ROS Statement: Except As Marked, All Systems Reviewed And Found Negative Constitutional: Negative for: Fever, Chills, Weakness Cardiovascular: Negative for: Chest Pain Respiratory: Negative for: Shortness of Breath Gastrointestinal: Positive for: Abdominal Pain, Other (blood in stool). Negative for: Nausea, Vomiting Physical Exam - Reviewed Nursing Documentation Reviewed: Yes Vital Signs Reviewed: Yes - Physical Exam Appears: Positive for: Non-toxic, No Acute Distress Head Exam: Positive for: ATRAUMATIC, NORMAL INSPECTION, NORMOCEPHALIC Skin: Positive for: Normal Color. Negative for: Pallor Eye Exam: Positive for: Normal appearance Neck: Positive for: Normal, Supple Cardiovascular/Chest: Positive for: Regular Rate, Rhythm Respiratory: Positive for: Normal Breath Sounds. Negative for: Respiratory Distress Gastrointestinal/Abdominal: Positive for: Soft, Tenderness (mild tenderness to lower abdomen). Negative for: Distended, Guarding, Rebound Back: Positive for: Normal Inspection Rectal: Positive for: Other (Guaiac exam: stool dark and tinged with blood) Extremity: Positive for: Normal ROM, Pedal Edema (trace edema bilaterally) Neurologic/Psych: Positive for: Alert, Oriented. Negative for: Motor/Sensory Deficits Comments: Disaster Response Director: Nurse May - Laboratory Results Result Diagrams: 08/01/18 05:30 08/01/18 05:30 Lab Results: Total Bilirubin 0.6 mg/dl (0.2-1.3) 07/30/18 13:30 AST 35 U/L (14-36) 07/30/18 13:30 ALT 24 U/L (9-52) 07/30/18 13:30 Alkaline Phosphatase 77 U/L (38-126) 07/30/18 13:30 Total Protein 6.5 G/DL (6.3-8.2) 07/30/18 13:30 Albumin 3.0 g/dL (3.5-5.0) L 07/30/18 13:30 Globulin 3.5 gm/dL (2.2-3.9) 07/30/18 13:30 Albumin/Globulin Ratio 0.9 (1.0-2.1) L 07/30/18 13:30 Lipase 54 U/L (23-300) 07/30/18 13:30 - ECG O2 Sat by Pulse Oximetry: 100 (RA) Pulse Ox Interpretation: Normal Medical Decision Making Medical Decision Makino female with blood per rectum rule out GI bleed, anemia Plan: -- Labs -- CT Adomen/Pelvis w/ -- Guiac stool -- IV Protonix 40mg -- IV Fluids Per Dr. Coombs's note, patient with history of pancytopenia, and has had blood transfusions before. Type & screen ordered. explained risks/benefits for blood transfusion, she consented and signed 17:52 Dr. Coombs called. Spoke to Dr. Coombs who said to speak to Dr. Cheung for hematology and Dr. Sanders for GI. Gave 1 dose of Protonix fluid and transfusion 1 unit. 18:47 CT abd/pelvis FINDINGS: LOWER THORAX: Unremarkable. LIVER: Hepatomegaly common nodular contour to the liver, variable contrast enhancement of hepatic parenchyma. Findings consistent with cirrhosis. Patent portal venous system is satisfactorily visualized without evidence portal vein thrombosis or the stigmata of portal hypertension. GALLBLADDER AND BILE DUCTS: Status post cholecystectomy. No abnormality is seen in the gallbladder fossa. PANCREAS: Atrophic pancreas. No evidence of pancreatitis. SPLEEN: Splenomegaly. Orthogonal measurements 15.4 x 10.1 cm. Enlarged venous varicosities left upper quadrant. ADRENALS: Unremarkable. No mass. KIDNEYS AND URETERS: Unremarkable. No hydronephrosis. No solid mass. VASCULATURE: Unremarkable. No aortic aneurysm. No atherosclerotic calcification or mural plaque present. BOWEL: Despite the decompressed state, gastric thickening suggests gastritis. No focal gastric lesions. Constipation without fecal impaction or obstruction. Postoperative changes, surgical anastomoses identified in the colon. No obstructing lesions identified. APPENDIX: Normal appendix. PERITONEUM: Streaking of the peritoneal fat, similar findings identified on the prior study. No free fluid. No free air. LYMPH NODES: Unremarkable. No enlarged lymph nodes. BLADDER: Unremarkable. REPRODUCTIVE: Prior hysterectomy. BONES: No acute fracture. OTHER FINDINGS: None. IMPRESSION: Hepatosplenomegaly. Portal venous system is patent. A component of portal hypertension suggested by dilatation of portal veins and large varicosities in the left upper quadrant. Diffuse thickening of the wall of the stomach consistent with gastritis without focal gastric lesion. Constipation without fecal impaction or obstruction. Additional benign and/or incidental findings described above. Scribe Attestation: Documented by Miguelina Matute acting as a scribe for Betty Chan MD. Provider Attestation: All medical record entries made by the Scribe were at my direction and personally dictated by me. I have reviewed the chart and agree that the record accurately reflects my personal performance of the history, physical exam, medical decision making, and the department course for this patient. I have also personally directed, reviewed, and agree with the discharge instructions and disposition. Disposition - Clinical Impression Clinical Impression: Abdominal pain, GI bleed, Erosive gastritis - Patient ED Disposition Is Patient to be Admitted: Yes - Disposition Disposition Time: 18:45 Condition: GUARDED
[2018-07-30] MEDS ORDERED: Iohexol 300 100 ML IJ ONE (18:16)
[2018-07-30] MEDS ORDERED: Sodium Chloride 0.9% 50 ML IV ONE (18:16)
--- NOTE | 2018-07-30 18:51 | CT ---
Date of service: 07/30/2018 PROCEDURE: CT Abdomen and Pelvis with contrast HISTORY: rectal bleeding, abd pain COMPARISON: 03/18/2018 CT abdomen pelvis. TECHNIQUE: Intravenous contrast dose: 95 cc Omnipaque 300 Radiation dose: Total exam DLP = 799.34 mGy-cm. This CT exam was performed using one or more of the following dose reduction techniques: Automated exposure control, adjustment of the mA and/or kV according to patient size, and/or use of iterative reconstruction technique. FINDINGS: LOWER THORAX: Unremarkable. LIVER: Hepatomegaly common nodular contour to the liver, variable contrast enhancement of hepatic parenchyma. Findings consistent with cirrhosis. Patent portal venous system is satisfactorily visualized without evidence portal vein thrombosis or the stigmata of portal hypertension. GALLBLADDER AND BILE DUCTS: Status post cholecystectomy. No abnormality is seen in the gallbladder fossa. PANCREAS: Atrophic pancreas. No evidence of pancreatitis. SPLEEN: Splenomegaly. Orthogonal measurements 15.4 x 10.1 cm. Enlarged venous varicosities left upper quadrant. ADRENALS: Unremarkable. No mass. KIDNEYS AND URETERS: Unremarkable. No hydronephrosis. No solid mass. VASCULATURE: Unremarkable. No aortic aneurysm. No atherosclerotic calcification or mural plaque present. BOWEL: Despite the decompressed state, gastric thickening suggests gastritis. No focal gastric lesions. Constipation without fecal impaction or obstruction. Postoperative changes, surgical anastomoses identified in the colon. No obstructing lesions identified. APPENDIX: Normal appendix. PERITONEUM: Streaking of the peritoneal fat, similar findings identified on the prior study. No free fluid. No free air. LYMPH NODES: Unremarkable. No enlarged lymph nodes. BLADDER: Unremarkable. REPRODUCTIVE: Prior hysterectomy. BONES: No acute fracture. OTHER FINDINGS: None. IMPRESSION: Hepatosplenomegaly. Portal venous system is patent. A component of portal hypertension suggested by dilatation of portal veins and large varicosities in the left upper quadrant. Diffuse thickening of the wall of the stomach consistent with gastritis without focal gastric lesion. Constipation without fecal impaction or obstruction. Additional benign and/or incidental findings described above.
[2018-07-31] MEDS: Dextrose 5%/Lactated Ringer's 1,000 ML IV SCH ×2 (06:50→17:27)
[2018-07-31] MEDS: Insulin Lispro (humaLOG) 100 Units/ml Inj SC SCH (07:30)
[2018-07-31] MEDS ORDERED: Influenza Vaccine (5 YR UP)/PF 60 MCG/0.5 ML SYR IM ONE (09:00)
[2018-07-31] MEDS: Sucralfate 1 gm/10 ml Oral Susp UD PO SCH ×3 (09:13→17:26)
[2018-07-31] MEDS: Magnesium Oxide 400 mg Tab UD PO SCH (09:22)
--- NOTE | 2018-07-31 11:48 | CP.PCM.CON ---
History of Present Illness - History of Present Illness History of Present Illness: 62 year old female with a history of DM, HTN, HL, hypothyroid, colon cancer s/p surgery and adjuvant chemotherapy in 2005, presenting with abdominal pain, found to have pancytopenia with anemia The patient is known to me from her prior hospitalization. At the time she was GI bleeding and found to have iron deficiency anemia. She was treated with PRBC transfusion and IV iron. She notes most recently experiencing dark black stools and was told to come to the ER by her PMD. Past medical history: DM, HTN, HL, hypothyroid, colon cancer s/p surgery and adjuvant chemotherapy in 2005. Past surgical history: hemicolectomy, cholecystectomy, hernia repair Family history: Denies hematologic and oncologic problems Social history: Denies tobacco, alcohol, and illicit drug use. Allergies: NKA Review of systems: All remaining review of systems including HEENT, cardiovascular, respiratory, gastrointestinal, genitourinary, musculoskeletal, dermatologic, neurologic, and psychiatric are negative unless mentioned in the HPI Past Patient History - Past Medical History & Family History Past Medical History?: Yes - Past Social History Smoking Status: Never Smoked - CARDIAC Hx Cardiac Disorders: Yes Hx Hypercholesterolemia: Yes Hx Hypertension: Yes Hx Pacemaker: No Hx Peripheral Edema: Yes - PULMONARY Hx Respiratory Disorders: Yes Hx Asthma: Yes Hx Bronchitis: No Hx Chronic Obstructive Pulmonary Disease (COPD): No (denies hx) - NEUROLOGICAL Hx Neurological Disorder: No Hx Seizures: No - HEENT Hx HEENT Problems: Yes Hx Cataracts: Yes (right eye) Hx Glaucoma: Yes (left eye) - RENAL Hx Chronic Kidney Disease: No - ENDOCRINE/METABOLIC Hx Endocrine Disorders: Yes Hx Diabetes Mellitus Type 2: Yes Hx Hypothyroidism: Yes - HEMATOLOGICAL/ONCOLOGICAL Hx Blood Disorders: Yes Hx AIDS: No Hx Anemia: Yes (last transfusion 07/22/18) Hx Cancer: Yes (hx of colon CA 2005) Hx Chemotherapy: Yes (1 yr chemo) Hx Human Immunodeficiency Virus (HIV): No - INTEGUMENTARY Hx Dermatological Problems: No - MUSCULOSKELETAL/RHEUMATOLOGICAL Hx Musculoskeletal Disorders: Yes Hx Back Pain: Yes Hx Falls: Yes (2003) Hx Rheumatoid Arthritis: Yes - GASTROINTESTINAL Hx Gastrointestinal Disorders: Yes Hx Gastritis: Yes - GENITOURINARY/GYNECOLOGICAL Hx Genitourinary Disorders: No Hx Sexually Transmitted Disorders: No - PSYCHIATRIC Hx Psychophysiologic Disorder: Yes Hx Anxiety: Yes Hx Depression: Yes Hx Substance Use: No - SURGICAL HISTORY Hx Surgeries: Yes Hx Appendectomy: Yes Hx Cholecystectomy: Yes Hx Musculoskeletal Surgery: Yes (x 4 sgy to L foot after fall) Hx Orthopedic Surgery: Yes (Left shoulder sgy) Other/Comment: hx of colectomy after SBOx2, hernia repair with mesh, then got infected from mesh sugy 2012 has emergency surgery - ANESTHESIA Hx Anesthesia: Yes Hx Anesthesia Reactions: No Hx Malignant Hyperthermia: No Meds Allergies/Adverse Reactions: Allergies Allergy/AdvReac Type Severity Reaction Status Date / Time No Known Allergies Allergy Verified 07/30/18 13:44 - Medications Medications: Current Medications Ascorbic Acid (Vitamin C 500 Mg Tab) 500 mg PO DAILY [facility] Last Admin: 07/31/18 09:18 Dose: Not Given Atorvastatin Calcium (Lipitor) 20 mg PO HS [facility] Cyanocobalamin (Vitamin B12 1000 Mcg Tab) 1,000 mcg PO DAILY [facility] Last Admin: 07/31/18 09:18 Dose: Not Given Famotidine (Pepcid) 40 mg PO DAILY [facility] Last Admin: 07/31/18 09:18 Dose: Not Given Ferrous Sulfate (Feosol) 325 mg PO Q8 [facility] Last Admin: 07/31/18 09:18 Dose: Not Given Gabapentin (Neurontin) 300 mg PO Q12 [facility] Last Admin: 07/31/18 09:18 Dose: Not Given Hydromorphone HCl (Dilaudid) 1 mg IVP Q4 PRN PRN Reason: Pain, severe (8-10) Last Admin: 07/31/18 09:52 Dose: 1 mg Iron Sucrose 200 mg/ Sodium (Chloride) 110 mls @ 110 mls/hr IVPB DAILY [facility] Stop: 08/05/18 09:01 Last Admin: 07/31/18 09:46 Dose: 110 mls/hr Dextrose/Lactated Ringer's (Dextrose 5%/Lactated Ringer's) 1,000 mls @ 100 mls/hr IV .Q10H [facility] Stop: 08/01/18 06:32 Last Admin: 07/31/18 06:50 Dose: 100 mls/hr Insulin Detemir (Levemir) 34 units SC HS [facility] Insulin Human Lispro (Humalog) 15 units SC ACB [facility] Last Admin: 07/31/18 07:30 Dose: Not Given Levothyroxine Sodium (Synthroid) 175 mcg PO DAILY@0630 [facility] Lisinopril (Zestril) 20 mg PO DAILY [facility] Last Admin: 07/31/18 09:22 Dose: Not Given Magnesium Oxide (Mag-Ox) 400 mg PO DAILY [facility] Last Admin: 07/31/18 09:22 Dose: Not Given Mirtazapine (Remeron Odt) 30 mg PO HS [facility] Pramipexole Dihydrochloride (Mirapex) 0.5 mg PO HS [facility] Sucralfate (Carafate Oral Susp) 1 gm PO TID [facility] Last Admin: 07/31/18 09:13 Dose: Not Given Physical Exam - Head Exam Head Exam: ATRAUMATIC - Eye Exam Eye Exam: Normal appearance - ENT Exam ENT Exam: Mucous Membranes Dry - Respiratory Exam Respiratory Exam: NORMAL BREATHING PATTERN - Cardiovascular Exam Cardiovascular Exam: +S1, +S2 - GI/Abdominal Exam GI & Abdominal Exam: Normal Bowel Sounds - Extremities Exam Extremities exam: Positive for: normal inspection - Neurological Exam Neurological exam: Oriented x3 - Psychiatric Exam Psychiatric exam: Normal Affect, Normal Mood - Skin Skin Exam: Warm Results - Vital Signs Recent Vital Signs: Last Vital Signs Temp 98 F 07/31/18 08:07 Pulse 82 07/31/18 08:07 Resp 20 07/31/18 08:07 BP 91/57 L 07/31/18 09:22 Pulse Ox 98 07/31/18 08:07 - Labs Result Diagrams: 08/01/18 05:30 08/01/18 05:30 Labs: Laboratory Results - last 24 hr 07/30/18 07/30/18 07/30/18 13:30 13:30 15:54 WBC 3.1 L RBC 2.46 L Hgb 7.3 L Hct 23.2 L MCV 94.3 D MCH 29.5 MCHC 31.3 L RDW 19.7 H Plt Count 88 L MPV 10.9 Neut % (Auto) 69.2 Lymph % (Auto) 19.2 L [place] % (Auto) 5.3 Eos % (Auto) 4.9 H Baso % (Auto) 1.4 Neut # (Auto) 2.1 Lymph # (Auto) 0.6 L [place] # (Auto) 0.2 Eos # (Auto) 0.2 Baso # (Auto) 0.0 Sodium 139 Potassium 4.2 Chloride 105 Carbon Dioxide 24 Anion Gap 14 BUN 13 Creatinine 0.5 L Est GFR ( Amer) > 60 Est GFR (Non-Af Amer) > 60 POC Glucose (mg/dL) Random Glucose 119 H Calcium 8.5 Total Bilirubin 0.6 AST 35 ALT 24 Alkaline Phosphatase 77 Total Protein 6.5 Albumin 3.0 L Globulin 3.5 Albumin/Globulin Ratio 0.9 L Lipase 54 Stool Occult Blood Blood Type A POSITIVE Antibody Screen Negative Crossmatch See Detail BBK History Checked Patient has bt 07/30/18 07/31/18 07/31/18 19:55 00:06 05:37 WBC RBC Hgb Hct MCV MCH MCHC RDW Plt Count MPV Neut % (Auto) Lymph % (Auto) [place] % (Auto) Eos % (Auto) Baso % (Auto) Neut # (Auto) Lymph # (Auto) [place] # (Auto) Eos # (Auto) Baso # (Auto) Sodium Potassium Chloride Carbon Dioxide Anion Gap BUN Creatinine Est GFR ( Amer) Est GFR (Non-Af Amer) POC Glucose (mg/dL) 92 92 Random Glucose Calcium Total Bilirubin AST ALT Alkaline Phosphatase Total Protein Albumin Globulin Albumin/Globulin Ratio Lipase Stool Occult Blood Positive H Blood Type Antibody Screen Crossmatch BBK History Checked 07/31/18 11:07 WBC RBC Hgb Hct MCV MCH MCHC RDW Plt Count MPV Neut % (Auto) Lymph % (Auto) [place] % (Auto) Eos % (Auto) Baso % (Auto) Neut # (Auto) Lymph # (Auto) [place] # (Auto) Eos # (Auto) Baso # (Auto) Sodium Potassium Chloride Carbon Dioxide Anion Gap BUN Creatinine Est GFR ( Amer) Est GFR (Non-Af Amer) POC Glucose (mg/dL) 89 Random Glucose Calcium Total Bilirubin AST ALT Alkaline Phosphatase Total Protein Albumin Globulin Albumin/Globulin Ratio Lipase Stool Occult Blood Blood Type Antibody Screen Crossmatch BBK History Checked Assessment & Plan (1) Pancytopenia Assessment and Plan: liver cirrhosis with splenomegaly splenic sequestration, prior iron deficiency will check iron stores and replete with IV iron if deficient transfusions support Status: Chronic (2) Colon cancer Assessment and Plan: in remission Thank you for this interesting consult. Status: Acute
[2018-07-31] MEDS: Pantoprazole 40 mg EC Tab PO SCH (17:30)
[2018-07-31] MEDS: Mirtazapine 30 MG ODT PO SCH (22:10)
[2018-07-31] MEDS: Insulin Detemir 100 Units/ml Inj SC SCH (22:12)
[2018-08-01] MEDS: Dextrose 5%/Lactated Ringer's 1,000 ML IV SCH ×3 (03:40→19:44)
[2018-08-01] MEDS: Levothyroxine 175 MCG TAB PO SCH (06:16)
[2018-08-01 07:29] LABS: BASO % 1.3 % (0.0-2.0); EOS # 0.2 K/uL (0.0-0.7); EOS % 5.5 % (0.0-4.0); HEMOGLOBIN 9.3 g/dL (12.0-16.0); LYMPH # 0.7 K/uL (1.0-4.3); LYMPH % 19.2 % (20.0-40.0); MEAN CELL VOLUME 91.7 fl (81.0-99.0); MEAN CORPUSCULAR HEMOGLOBIN 30.1 pg (27.0-31.0); MEAN CORPUSCULAR HGB CONC 32.9 g/dL (33.0-37.0); MEAN PLATELET VOLUME 10.5 fl (7.2-11.7); MONO # 0.2 K/uL (0.0-0.8); MONO % 6.5 % (0.0-10.0); NEUT # 2.3 K/uL (1.8-7.0); NEUT % 67.5 % (50.0-75.0); NRBC % 0.1 % (0.0-0.0); RBC 3.09 Mil/uL (3.80-5.20); WHITE BLOOD COUNT 3.4 K/uL (4.8-10.8)
[2018-08-01 07:47] LABS: BLOOD UREA NITROGEN 9 mg/dl (7-17); CALCIUM 8.3 mg/dL (8.4-10.2); GFR NON-AFRICAN AMERICAN > 60
[2018-08-01] MEDS: Sucralfate 1 gm/10 ml Oral Susp UD PO SCH ×3 (09:03→17:11)
[2018-08-01] MEDS: Magnesium Oxide 400 mg Tab UD PO SCH (09:04)
[2018-08-01] MEDS: Insulin Lispro (humaLOG) 100 Units/ml Inj SC SCH (09:04)
[2018-08-01] MEDS: Pantoprazole 40 mg EC Tab PO SCH (09:05)
[2018-08-01] MEDS: Mirtazapine 30 MG ODT PO SCH (21:07)
[2018-08-01] MEDS: Insulin Detemir 100 Units/ml Inj SC SCH (21:11)
--- NOTE | 2018-08-01 22:24 | CP.PCM.PN ---
Subjective - Date & Time of Evaluation Date of Evaluation: 08/01/18 Time of Evaluation: 17:00 - Subjective Subjective: Feeling better s/p PRBC transfusion and IV iron Objective - Vital Signs/Intake and Output Vital Signs (last 24 hours): Temp Pulse Resp BP Pulse Ox 98 F 77 20 108/70 96 08/01/18 16:23 08/01/18 16:23 08/01/18 16:23 08/01/18 16:23 08/01/18 16:23 - Medications Medications: Current Medications Ascorbic Acid (Vitamin C 500 Mg Tab) 500 mg PO DAILY [facility] Last Admin: 08/01/18 09:06 Dose: 500 mg Atorvastatin Calcium (Lipitor) 20 mg PO HS [facility] Last Admin: 08/01/18 21:07 Dose: 20 mg Cyanocobalamin (Vitamin B12 1000 Mcg Tab) 1,000 mcg PO DAILY [facility] Last Admin: 08/01/18 09:06 Dose: 1,000 mcg Ferrous Sulfate (Feosol) 325 mg PO Q8 [facility] Last Admin: 08/01/18 17:11 Dose: 325 mg Gabapentin (Neurontin) 300 mg PO Q12 [facility] Last Admin: 08/01/18 21:07 Dose: 300 mg Hydromorphone HCl (Dilaudid) 1 mg IVP Q4 PRN PRN Reason: Pain, severe (8-10) Last Admin: 08/01/18 00:13 Dose: 1 mg Iron Sucrose 200 mg/ Sodium (Chloride) 110 mls @ 110 mls/hr IVPB DAILY [facility] Stop: 08/05/18 09:01 Last Admin: 08/01/18 09:05 Dose: 110 mls/hr Dextrose/Lactated Ringer's (Dextrose 5%/Lactated Ringer's) 1,000 mls @ 100 mls /hr IV .Q10H [facility] Stop: 08/02/18 08:47 Last Admin: 08/01/18 19:44 Dose: Not Given Insulin Detemir (Levemir) 34 units SC HS [facility] Last Admin: 08/01/18 21:11 Dose: 34 unit Insulin Human Lispro (Humalog) 15 units SC ACB [facility] Last Admin: 08/01/18 09:04 Dose: Not Given Levothyroxine Sodium (Synthroid) 175 mcg PO DAILY@0630 [facility] Last Admin: 08/01/18 06:16 Dose: 175 mcg Lisinopril (Zestril) 20 mg PO DAILY [facility] Last Admin: 08/01/18 09:06 Dose: 20 mg Magnesium Oxide (Mag-Ox) 400 mg PO DAILY [facility] Last Admin: 08/01/18 09:04 Dose: 400 mg Mirtazapine (Remeron Odt) 30 mg PO HS [facility] Last Admin: 07/31/18 22:10 Dose: 30 mg Pantoprazole Sodium (Protonix Ec Tab) 40 mg PO DAILY [facility] Last Admin: 08/01/18 09:05 Dose: 40 mg Pramipexole Dihydrochloride (Mirapex) 0.5 mg PO HS [facility] Last Admin: 08/01/18 21:07 Dose: 0.5 mg Sucralfate (Carafate Oral Susp) 1 gm PO TID [facility] Last Admin: 08/01/18 17:11 Dose: 1 gm - Labs Labs: 08/01/18 05:30 08/01/18 05:30 - Head Exam Head Exam: ATRAUMATIC - Eye Exam Eye Exam: Normal appearance - ENT Exam ENT Exam: Mucous Membranes Dry - Respiratory Exam Respiratory Exam: NORMAL BREATHING PATTERN - Cardiovascular Exam Cardiovascular Exam: +S1, +S2 - GI/Abdominal Exam GI & Abdominal Exam: Normal Bowel Sounds Assessment and Plan (1) Pancytopenia Assessment & Plan: liver cirrhosis with splenomegaly splenic sequestration, prior iron deficiency IV iron transfusions support Status: Chronic (2) Colon cancer Assessment & Plan: in remission Status: Acute
--- NOTE | 2018-08-01 23:21 | CP.PCM.CON ---
History of Present Illness - History of Present Illness History of Present Illness: 62 yo female with past hospitalizations for anemia referred to ER by PMD c/o abdominal pain and black stool. She has h/o of colon ca requiring surgery in 2005 though she has been in remission since. Had negative colonscopy in 11/2017. Upper endoscopy at that time showed gastric hyperemia and erosions. She has h/o liver cirrhosis. Has received transfusions and feels stronger. Review of Systems - Constitutional Constitutional: absent: Chills - EENT Eyes: absent: Change in Vision Ears: absent: Decreased Hearing Nose/Mouth/Throat: absent: Epistaxis - Cardiovascular Cardiovascular: absent: Chest Pain - Respiratory Respiratory: absent: Dyspnea - Gastrointestinal Gastrointestinal: Abdominal Pain - Genitourinary Genitourinary: absent: Change in Urinary Stream - Musculoskeletal Musculoskeletal: absent: Abnormal Gait Past Patient History - Past Medical History & Family History Past Medical History?: Yes - Past Social History Smoking Status: Never Smoked - CARDIAC Hx Cardiac Disorders: Yes Hx Hypercholesterolemia: Yes Hx Hypertension: Yes Hx Pacemaker: No Hx Peripheral Edema: Yes - PULMONARY Hx Respiratory Disorders: Yes Hx Asthma: Yes Hx Bronchitis: No Hx Chronic Obstructive Pulmonary Disease (COPD): No (denies hx) - NEUROLOGICAL Hx Neurological Disorder: No Hx Seizures: No - HEENT Hx HEENT Problems: Yes Hx Cataracts: Yes (right eye) Hx Glaucoma: Yes (left eye) - RENAL Hx Chronic Kidney Disease: No - ENDOCRINE/METABOLIC Hx Endocrine Disorders: Yes Hx Diabetes Mellitus Type 2: Yes Hx Hypothyroidism: Yes - HEMATOLOGICAL/ONCOLOGICAL Hx Blood Disorders: Yes Hx AIDS: No Hx Anemia: Yes (last transfusion 07/22/18) Hx Cancer: Yes (hx of colon CA 2005) Hx Chemotherapy: Yes (1 yr chemo) Hx Human Immunodeficiency Virus (HIV): No - INTEGUMENTARY Hx Dermatological Problems: No - MUSCULOSKELETAL/RHEUMATOLOGICAL Hx Musculoskeletal Disorders: Yes Hx Back Pain: Yes Hx Falls: Yes (2003) Hx Rheumatoid Arthritis: Yes - GASTROINTESTINAL Hx Gastrointestinal Disorders: Yes Hx Gastritis: Yes - GENITOURINARY/GYNECOLOGICAL Hx Genitourinary Disorders: No Hx Sexually Transmitted Disorders: No - PSYCHIATRIC Hx Psychophysiologic Disorder: Yes Hx Anxiety: Yes Hx Depression: Yes Hx Substance Use: No - SURGICAL HISTORY Hx Surgeries: Yes Hx Appendectomy: Yes Hx Cholecystectomy: Yes Hx Musculoskeletal Surgery: Yes (x 4 sgy to L foot after fall) Hx Orthopedic Surgery: Yes (Left shoulder sgy) Other/Comment: hx of colectomy after SBOx2, hernia repair with mesh, then got infected from mesh sugy 2013 has emergency surgery - ANESTHESIA Hx Anesthesia: Yes Hx Anesthesia Reactions: No Hx Malignant Hyperthermia: No Meds Allergies/Adverse Reactions: Allergies Allergy/AdvReac Type Severity Reaction Status Date / Time No Known Allergies Allergy Verified 07/30/18 13:44 - Medications Medications: Current Medications Ascorbic Acid (Vitamin C 500 Mg Tab) 500 mg PO DAILY [facility] Last Admin: 08/01/18 09:06 Dose: 500 mg Atorvastatin Calcium (Lipitor) 20 mg PO HS [facility] Last Admin: 08/01/18 21:07 Dose: 20 mg Cyanocobalamin (Vitamin B12 1000 Mcg Tab) 1,000 mcg PO DAILY [facility] Last Admin: 08/01/18 09:06 Dose: 1,000 mcg Ferrous Sulfate (Feosol) 325 mg PO Q8 [facility] Last Admin: 08/01/18 17:11 Dose: 325 mg Gabapentin (Neurontin) 300 mg PO Q12 [facility] Last Admin: 08/01/18 21:07 Dose: 300 mg Hydromorphone HCl (Dilaudid) 1 mg IVP Q4 PRN PRN Reason: Pain, severe (8-10) Last Admin: 08/01/18 00:13 Dose: 1 mg Iron Sucrose 200 mg/ Sodium (Chloride) 110 mls @ 110 mls/hr IVPB DAILY [facility] Stop: 08/05/18 09:01 Last Admin: 08/01/18 09:05 Dose: 110 mls/hr Dextrose/Lactated Ringer's (Dextrose 5%/Lactated Ringer's) 1,000 mls @ 100 mls/hr IV .Q10H [facility] Stop: 08/02/18 08:47 Last Admin: 08/01/18 19:44 Dose: Not Given Insulin Detemir (Levemir) 34 units SC HS [facility] Last Admin: 08/01/18 21:11 Dose: 34 unit Insulin Human Lispro (Humalog) 15 units SC ACB [facility] Last Admin: 08/01/18 09:04 Dose: Not Given Levothyroxine Sodium (Synthroid) 175 mcg PO DAILY@0630 [facility] Last Admin: 08/01/18 06:16 Dose: 175 mcg Lisinopril (Zestril) 20 mg PO DAILY [facility] Last Admin: 08/01/18 09:06 Dose: 20 mg Magnesium Oxide (Mag-Ox) 400 mg PO DAILY [facility] Last Admin: 08/01/18 09:04 Dose: 400 mg Mirtazapine (Remeron Odt) 30 mg PO [facility] Last Admin: 07/31/18 22:10 Dose: 30 mg Pantoprazole Sodium (Protonix Ec Tab) 40 mg PO DAILY [facility] Last Admin: 08/01/18 09:05 Dose: 40 mg Pramipexole Dihydrochloride (Mirapex) 0.5 mg PO [facility] Last Admin: 08/01/18 21:07 Dose: 0.5 mg Sucralfate (Carafate Oral Susp) 1 gm PO TID [facility] Last Admin: 08/01/18 17:11 Dose: 1 gm Physical Exam - Constitutional Appears: No Acute Distress - Head Exam Head Exam: ATRAUMATIC - Eye Exam Eye Exam: Normal appearance - ENT Exam ENT Exam: Mucous Membranes Moist - Respiratory Exam Respiratory Exam: Clear to Auscultation Bilateral - Cardiovascular Exam Cardiovascular Exam: REGULAR RHYTHM, +S1, +S2 - GI/Abdominal Exam GI & Abdominal Exam: Normal Bowel Sounds, Soft, Tenderness Additional comments: lower abdomen more to the right Results - Vital Signs Recent Vital Signs: Last Vital Signs Temp 98 F 08/01/18 16:23 Pulse 77 08/01/18 16:23 Resp 20 08/01/18 16:23 BP 108/70 08/01/18 16:23 Pulse Ox 96 08/01/18 16:23 - Labs Result Diagrams: 08/01/18 05:30 08/01/18 05:30 Labs: Laboratory Results - last 24 hr 08/01/18 08/01/18 08/01/18 05:26 05:30 05:30 WBC 3.4 L RBC 3.09 L Hgb 9.3 L D Hct 28.3 L MCV 91.7 D MCH 30.1 MCHC 32.9 L RDW 19.0 H Plt Count 112 L D MPV 10.5 Neut % (Auto) 67.5 Lymph % (Auto) 19.2 L [place] % (Auto) 6.5 Eos % (Auto) 5.5 H Baso % (Auto) 1.3 Neut # (Auto) 2.3 Lymph # (Auto) 0.7 L [place] # (Auto) 0.2 Eos # (Auto) 0.2 Baso # (Auto) 0.0 Sodium 139 Potassium 3.7 Chloride 103 Carbon Dioxide 24 Anion Gap 16 BUN 9 Creatinine 0.7 Est GFR ( Amer) > 60 Est GFR (Non-Af Amer) > 60 POC Glucose (mg/dL) 143 H Random Glucose 123 H Calcium 8.3 L 08/01/18 08/01/18 08/01/18 11:46 15:26 21:05 WBC RBC Hgb Hct MCV MCH MCHC RDW Plt Count MPV Neut % (Auto) Lymph % (Auto) [place] % (Auto) Eos % (Auto) Baso % (Auto) Neut # (Auto) Lymph # (Auto) [place] # (Auto) Eos # (Auto) Baso # (Auto) Sodium Potassium Chloride Carbon Dioxide Anion Gap BUN Creatinine Est GFR ( Amer) Est GFR (Non-Af Amer) POC Glucose (mg/dL) 195 H 130 H 141 H Random Glucose Calcium - Imaging and Cardiology CT scan - abdomen Status: Image reviewed by me, Report reviewed by me Assessment & Plan (1) GI bleed Assessment and Plan: Patient describes black stool. Thickened gastric wall on CT. Continue pantoprazole Upper endoscopy Friday. Appreciate Hematology input. Cause of abdominal pain unclear despite CT scan. Status: Acute
[2018-08-02] MEDS: Dextrose 5%/Lactated Ringer's 1,000 ML IV SCH ×2 (00:10→05:53)
[2018-08-02] MEDS: Levothyroxine 175 MCG TAB PO SCH (05:54)
[2018-08-02] MEDS: Insulin Lispro (humaLOG) 100 Units/ml Inj SC SCH (08:46)
[2018-08-02] MEDS: Magnesium Oxide 400 mg Tab UD PO SCH (08:48)
[2018-08-02] MEDS: Sucralfate 1 gm/10 ml Oral Susp UD PO SCH ×3 (08:48→16:46)
[2018-08-02] MEDS: Pantoprazole 40 mg EC Tab PO SCH (08:49)
--- NOTE | 2018-08-02 20:57 | CP.PCM.PN ---
Subjective - Date & Time of Evaluation Date of Evaluation: 08/01/18 Time of Evaluation: 06:30 - Subjective Subjective: Pt seen and assessed at bedside. Reports 4 episodes of diarrhea with scant blood. Otherwise reports feeling better. Review of Systems - Review of Systems All systems: reviewed and no additional remarkable complaints except - Gastrointestinal Gastrointestinal: Abdominal Pain, Diarrhea Additional comments: diarrhea with scant blood, as per pt. Objective - Vital Signs/Intake and Output Vital Signs (last 24 hours): Temp Pulse Resp BP Pulse Ox 98 F 88 20 118/71 100 08/02/18 16:38 08/02/18 16:38 08/02/18 16:38 08/02/18 16:38 08/02/18 16:38 - Medications Medications: Current Medications Ascorbic Acid (Vitamin C 500 Mg Tab) 500 mg PO DAILY [facility] Last Admin: 08/02/18 08:50 Dose: 500 mg Atorvastatin Calcium (Lipitor) 20 mg PO HS [facility] Last Admin: 08/01/18 21:07 Dose: 20 mg Cyanocobalamin (Vitamin B12 1000 Mcg Tab) 1,000 mcg PO DAILY [facility] Last Admin: 08/02/18 08:49 Dose: 1,000 mcg Ferrous Sulfate (Feosol) 325 mg PO Q8 [facility] Last Admin: 08/02/18 08:48 Dose: 325 mg Gabapentin (Neurontin) 300 mg PO Q12 [facility] Last Admin: 08/02/18 08:49 Dose: 300 mg Hydromorphone HCl (Dilaudid) 1 mg IVP Q4 PRN PRN Reason: Pain, severe (8-10) Last Admin: 08/02/18 13:59 Dose: 1 mg Iron Sucrose 200 mg/ Sodium (Chloride) 110 mls @ 110 mls/hr IVPB DAILY [facility] Stop: 08/05/18 09:01 Last Admin: 08/02/18 08:49 Dose: 110 mls/hr Lactated Ringer's (Lactated Ringer's) 1,000 mls @ 60 mls/hr IV .[id number] [facility] Insulin Detemir (Levemir) 34 units SC HS [facility] Last Admin: 08/01/18 21:11 Dose: 34 unit Insulin Human Lispro (Humalog) 15 units SC ACB [facility] Last Admin: 08/02/18 08:46 Dose: Not Given Levothyroxine Sodium (Synthroid) 175 mcg PO DAILY@0630 [facility] Last Admin: 08/02/18 05:54 Dose: 175 mcg Lisinopril (Zestril) 20 mg PO DAILY [facility] Last Admin: 08/02/18 08:50 Dose: 20 mg Magnesium Oxide (Mag-Ox) 400 mg PO DAILY [facility] Last Admin: 08/02/18 08:48 Dose: 400 mg Mirtazapine (Remeron Odt) 30 mg PO HS [facility] Last Admin: 08/01/18 21:07 Dose: 30 mg Pantoprazole Sodium (Protonix Ec Tab) 40 mg PO DAILY [facility] Last Admin: 08/02/18 08:49 Dose: 40 mg Pramipexole Dihydrochloride (Mirapex) 0.5 mg PO HS [facility] Last Admin: 08/01/18 21:07 Dose: 0.5 mg Sucralfate (Carafate Oral Susp) 1 gm PO TID [facility] Last Admin: 08/02/18 16:46 Dose: 1 gm Temazepam (Restoril) 15 mg PO HS PRN PRN Reason: Insomnia - Labs Labs: 08/01/18 05:30 08/01/18 05:30 - Head Exam Head Exam: NORMOCEPHALIC - Eye Exam Eye Exam: EOMI, Normal appearance, PERRL Pupil Exam: PERRL - ENT Exam ENT Exam: Mucous Membranes Moist - Neck Exam Neck Exam: Full ROM - Respiratory Exam Respiratory Exam: Clear to Ausculation Bilateral - Cardiovascular Exam Cardiovascular Exam: REGULAR RHYTHM, +S1, +S2 - GI/Abdominal Exam GI & Abdominal Exam: Distended, Firm - Extremities Exam Extremities Exam: Full ROM, Normal Capillary Refill, Normal Inspection - Back Exam Back Exam: NORMAL INSPECTION - Neurological Exam Neurological Exam: Alert, Awake, Oriented x3 - Psychiatric Exam Psychiatric exam: Normal Affect, Normal Mood - Skin Skin Exam: Dry, Normal Color, Warm Assessment and Plan - Assessment and Plan (Free Text) Assessment: Assessment/Impression/Plan: 1.) Anemia -PMH of iron deficiency + blood tranfusions. -GI on consult; r/o upper GI bleed as source of anemia. -Hem/Onc consult appreciated. -Continue ferrous sulfate + venofer. -pain controlled with dilaudid. -monitor Hgb/Hct.
[2018-08-02] MEDS: Mirtazapine 30 MG ODT PO SCH (21:00)
--- NOTE | 2018-08-02 21:28 | CP.PCM.HP ---
History of Present Illness - History of Present Illness History of Present Illness: CC: Rectal bleed and lower abdominal pain. HPI: Loan Orozco is a 62 y/o female with a PMH of anemia, DM, colon CA, gastritis, and asthma; she is currently admitted for Anemia. The pt was seen by her Primary care provider prior to admission, where she reports bloody stools and lower abdominal pain. PMH: Anemia, Anxiety, Arthritis, Asthma, Colon CA, COPD, Depression, Diabetes, Gastritis, HTN, hypercholesterolemia, hyperlipidemia, hypothyroidism, peripheral edema, rheumatoid arthritis. PSH: Appendectomy, Cholecystectomy, Hernia Repair. Family History: HTN Social history: Non-smoker. Allergies: NKDA. Present on Admission - Present on Admission Any Indicators Present on Admission: No Review of Systems - Review of Systems All systems: reviewed and no additional remarkable complaints except - Gastrointestinal Gastrointestinal: Abdominal Pain, Hematochezia Past Patient History - Past Medical History & Family History Past Medical History?: Yes - Past Social History Smoking Status: Never Smoked - CARDIAC Hx Cardiac Disorders: Yes Hx Hypercholesterolemia: Yes Hx Hypertension: Yes Hx Pacemaker: No Hx Peripheral Edema: Yes - PULMONARY Hx Respiratory Disorders: Yes Hx Asthma: Yes Hx Bronchitis: No Hx Chronic Obstructive Pulmonary Disease (COPD): No (denies hx) - NEUROLOGICAL Hx Neurological Disorder: No Hx Seizures: No - HEENT Hx HEENT Problems: Yes Hx Cataracts: Yes (right eye) Hx Glaucoma: Yes (left eye) - RENAL Hx Chronic Kidney Disease: No - ENDOCRINE/METABOLIC Hx Endocrine Disorders: Yes Hx Diabetes Mellitus Type 2: Yes Hx Hypothyroidism: Yes - HEMATOLOGICAL/ONCOLOGICAL Hx Blood Disorders: Yes Hx AIDS: No Hx Anemia: Yes (last transfusion 07/22/18) Hx Cancer: Yes (hx of colon CA 2005) Hx Chemotherapy: Yes (1 yr chemo) Hx Human Immunodeficiency Virus (HIV): No - INTEGUMENTARY Hx Dermatological Problems: No - MUSCULOSKELETAL/RHEUMATOLOGICAL Hx Musculoskeletal Disorders: Yes Hx Back Pain: Yes Hx Falls: Yes (2003) Hx Rheumatoid Arthritis: Yes - GASTROINTESTINAL Hx Gastrointestinal Disorders: Yes Hx Gastritis: Yes - GENITOURINARY/GYNECOLOGICAL Hx Genitourinary Disorders: No Hx Sexually Transmitted Disorders: No - PSYCHIATRIC Hx Psychophysiologic Disorder: Yes Hx Anxiety: Yes Hx Depression: Yes Hx Substance Use: No - SURGICAL HISTORY Hx Surgeries: Yes Hx Appendectomy: Yes Hx Cholecystectomy: Yes Hx Musculoskeletal Surgery: Yes (x 4 sgy to L foot after fall) Hx Orthopedic Surgery: Yes (Left shoulder sgy) Other/Comment: hx of colectomy after SBOx2, hernia repair with mesh, then got infected from mesh sugy 2012 has emergency surgery - ANESTHESIA Hx Anesthesia: Yes Hx Anesthesia Reactions: No Hx Malignant Hyperthermia: No Meds Allergies/Adverse Reactions: Allergies Allergy/AdvReac Type Severity Reaction Status Date / Time No Known Allergies Allergy Verified 07/30/18 13:44 Physical Exam - Head Exam Head Exam: NORMOCEPHALIC - Eye Exam Eye Exam: EOMI, Normal appearance, PERRL Pupil Exam: PERRL - ENT Exam ENT Exam: Mucous Membranes Moist, Normal Exam - Neck Exam Neck exam: Positive for: Normal Inspection - Respiratory Exam Respiratory Exam: Clear to Auscultation Bilateral, NORMAL BREATHING PATTERN - Cardiovascular Exam Cardiovascular Exam: REGULAR RHYTHM, +S1, +S2 - GI/Abdominal Exam GI & Abdominal Exam: Distended, Tenderness - Extremities Exam Extremities exam: Positive for: normal inspection - Back Exam Back exam: NORMAL INSPECTION - Neurological Exam Neurological exam: Alert, Oriented x3 - Psychiatric Exam Psychiatric exam: Normal Affect, Normal Mood - Skin Skin Exam: Dry, Pallor, Warm Results - Vital Signs Recent Vital Signs: Last Vital Signs Temp 98 F 08/02/18 16:38 Pulse 88 08/02/18 16:38 Resp 20 08/02/18 16:38 BP 118/71 08/02/18 16:38 Pulse Ox 100 08/02/18 16:38 - Labs Result Diagrams: 08/01/18 05:30 08/01/18 05:30 Labs: Laboratory Results - last 24 hr 08/01/18 08/02/18 08/02/18 21:05 05:19 10:55 POC Glucose (mg/dL) 141 H 111 H 170 H 08/02/18 16:22 POC Glucose (mg/dL) 193 H Assessment & Plan - Assessment and Plan (Free Text) Assessment: Assessment/Impression/Major Problems now: 1.) Anemia -DDX: Iron deficiency vs upper GI bleed. -CT A/P reviewed; hepatosplenomegaly, portal HTN, gastritis, large varicosities. -hem/onc consult appreciated. -continue current treatment; consider GI eval. - Date & Time Date: 07/31/18 Time: 09:00
--- NOTE | 2018-08-02 21:32 | CP.PCM.PN ---
Subjective - Date & Time of Evaluation Date of Evaluation: 08/02/18 Time of Evaluation: 14:00 - Subjective Subjective: Feels better. Objective - Vital Signs/Intake and Output Vital Signs (last 24 hours): Temp Pulse Resp BP Pulse Ox 98 F 88 20 118/71 100 08/02/18 16:38 08/02/18 16:38 08/02/18 16:38 08/02/18 16:38 08/02/18 16:38 - Medications Medications: Current Medications Ascorbic Acid (Vitamin C 500 Mg Tab) 500 mg PO DAILY [facility] Last Admin: 08/02/18 08:50 Dose: 500 mg Atorvastatin Calcium (Lipitor) 20 mg PO HS [facility] Last Admin: 08/02/18 21:00 Dose: 20 mg Cyanocobalamin (Vitamin B12 1000 Mcg Tab) 1,000 mcg PO DAILY [facility] Last Admin: 08/02/18 08:49 Dose: 1,000 mcg Ferrous Sulfate (Feosol) 325 mg PO Q8 [facility] Last Admin: 08/02/18 08:48 Dose: 325 mg Gabapentin (Neurontin) 300 mg PO Q12 [facility] Last Admin: 08/02/18 21:00 Dose: 300 mg Hydromorphone HCl (Dilaudid) 1 mg IVP Q4 PRN PRN Reason: Pain, severe (8-10) Last Admin: 08/02/18 13:59 Dose: 1 mg Iron Sucrose 200 mg/ Sodium (Chloride) 110 mls @ 110 mls/hr IVPB DAILY [facility] Stop: 08/05/18 09:01 Last Admin: 08/02/18 08:49 Dose: 110 mls/hr Lactated Ringer's (Lactated Ringer's) 1,000 mls @ 60 mls/hr IV .[id number] [facility] Last Admin: 08/02/18 21:00 Dose: 60 mls/hr Insulin Detemir (Levemir) 34 units SC HS [facility] Last Admin: 08/01/18 21:11 Dose: 34 unit Insulin Human Lispro (Humalog) 15 units SC ACB [facility] Last Admin: 08/02/18 08:46 Dose: Not Given Levothyroxine Sodium (Synthroid) 175 mcg PO DAILY@0630 [facility] Last Admin: 08/02/18 05:54 Dose: 175 mcg Lisinopril (Zestril) 20 mg PO DAILY [facility] Last Admin: 08/02/18 08:50 Dose: 20 mg Magnesium Oxide (Mag-Ox) 400 mg PO DAILY [facility] Last Admin: 08/02/18 08:48 Dose: 400 mg Mirtazapine (Remeron Odt) 30 mg PO HS [facility] Last Admin: 08/02/18 21:00 Dose: 30 mg Pantoprazole Sodium (Protonix Ec Tab) 40 mg PO DAILY [facility] Last Admin: 08/02/18 08:49 Dose: 40 mg Pramipexole Dihydrochloride (Mirapex) 0.5 mg PO HS [facility] Last Admin: 08/02/18 21:00 Dose: 0.5 mg Sucralfate (Carafate Oral Susp) 1 gm PO TID [facility] Last Admin: 08/02/18 16:46 Dose: 1 gm Temazepam (Restoril) 15 mg PO HS PRN PRN Reason: Insomnia - Labs Labs: 08/01/18 05:30 08/01/18 05:30 - Head Exam Head Exam: ATRAUMATIC - Eye Exam Eye Exam: Normal appearance - ENT Exam ENT Exam: Mucous Membranes Dry - Respiratory Exam Respiratory Exam: NORMAL BREATHING PATTERN - Cardiovascular Exam Cardiovascular Exam: +S1, +S2 - GI/Abdominal Exam GI & Abdominal Exam: Normal Bowel Sounds Assessment and Plan (1) Pancytopenia Assessment & Plan: liver cirrhosis, pHTN with sequestration chronic GI blood loss, GI w/u in progress on IV iron s/p PRBC transfusion Status: Chronic (2) Colon cancer Assessment & Plan: in remission Status: Acute
[2018-08-02] MEDS: Insulin Detemir 100 Units/ml Inj SC SCH (21:37)
--- NOTE | 2018-08-02 21:40 | CP.PCM.PN ---
Subjective - Date & Time of Evaluation Date of Evaluation: 08/02/18 Time of Evaluation: 14:00 - Subjective Subjective: Pt seen and assessed at bedside. Reports loose bowel movement with increased blood observed. Otherwise reports feeling comfortable. Review of Systems - Review of Systems All systems: reviewed and no additional remarkable complaints except - Gastrointestinal Gastrointestinal: Abdominal Pain, Hematochezia Objective - Vital Signs/Intake and Output Vital Signs (last 24 hours): Temp Pulse Resp BP Pulse Ox 98 F 88 20 118/71 100 08/02/18 16:38 08/02/18 16:38 08/02/18 16:38 08/02/18 16:38 08/02/18 16:38 - Medications Medications: Current Medications Ascorbic Acid (Vitamin C 500 Mg Tab) 500 mg PO DAILY [facility] Last Admin: 08/02/18 08:50 Dose: 500 mg Atorvastatin Calcium (Lipitor) 20 mg PO HS [facility] Last Admin: 08/02/18 21:00 Dose: 20 mg Cyanocobalamin (Vitamin B12 1000 Mcg Tab) 1,000 mcg PO DAILY [facility] Last Admin: 08/02/18 08:49 Dose: 1,000 mcg Ferrous Sulfate (Feosol) 325 mg PO Q8 [facility] Last Admin: 08/02/18 08:48 Dose: 325 mg Gabapentin (Neurontin) 300 mg PO Q12 [facility] Last Admin: 08/02/18 21:00 Dose: 300 mg Hydromorphone HCl (Dilaudid) 1 mg IVP Q4 PRN PRN Reason: Pain, severe (8-10) Last Admin: 08/02/18 13:59 Dose: 1 mg Iron Sucrose 200 mg/ Sodium (Chloride) 110 mls @ 110 mls/hr IVPB DAILY [facility] Stop: 08/05/18 09:01 Last Admin: 08/02/18 08:49 Dose: 110 mls/hr Lactated Ringer's (Lactated Ringer's) 1,000 mls @ 60 mls/hr IV .[id number] [facility] Last Admin: 08/02/18 21:00 Dose: 60 mls/hr Insulin Detemir (Levemir) 34 units SC HS [facility] Last Admin: 08/01/18 21:11 Dose: 34 unit Insulin Human Lispro (Humalog) 15 units SC ACB [facility] Last Admin: 08/02/18 08:46 Dose: Not Given Levothyroxine Sodium (Synthroid) 175 mcg PO DAILY@0630 [facility] Last Admin: 08/02/18 05:54 Dose: 175 mcg Lisinopril (Zestril) 20 mg PO DAILY [facility] Last Admin: 08/02/18 08:50 Dose: 20 mg Magnesium Oxide (Mag-Ox) 400 mg PO DAILY [facility] Last Admin: 08/02/18 08:48 Dose: 400 mg Mirtazapine (Remeron Odt) 30 mg PO HS [facility] Last Admin: 08/02/18 21:00 Dose: 30 mg Pantoprazole Sodium (Protonix Ec Tab) 40 mg PO DAILY [facility] Last Admin: 08/02/18 08:49 Dose: 40 mg Pramipexole Dihydrochloride (Mirapex) 0.5 mg PO HS [facility] Last Admin: 08/02/18 21:00 Dose: 0.5 mg Sucralfate (Carafate Oral Susp) 1 gm PO TID [facility] Last Admin: 08/02/18 16:46 Dose: 1 gm Temazepam (Restoril) 15 mg PO HS PRN PRN Reason: Insomnia - Labs Labs: 08/01/18 05:30 08/01/18 05:30 - Head Exam Head Exam: NORMOCEPHALIC - Eye Exam Eye Exam: EOMI, Normal appearance, PERRL Pupil Exam: PERRL - ENT Exam ENT Exam: Mucous Membranes Moist - Neck Exam Neck Exam: Full ROM, Normal Inspection - Respiratory Exam Respiratory Exam: Clear to Ausculation Bilateral - Cardiovascular Exam Cardiovascular Exam: REGULAR RHYTHM, +S1, +S2 - GI/Abdominal Exam GI & Abdominal Exam: Distended, Firm, Normal Bowel Sounds - Extremities Exam Extremities Exam: Full ROM, Normal Capillary Refill, Normal Inspection - Back Exam Back Exam: NORMAL INSPECTION - Neurological Exam Neurological Exam: Alert, Awake, Oriented x3 - Psychiatric Exam Psychiatric exam: Normal Affect, Normal Mood - Skin Skin Exam: Dry, Pallor, Warm Assessment and Plan - Assessment and Plan (Free Text) Assessment: Assessment/Impression/Major Problems now: 1.) Anemia -Pt reports bloody BM today. R/O upper GI bleed. -GI and Hem/Onc consults appreciated. -Colonoscopy in 2018 was unremarkable; Endoscopy from 2018 revealed gastric hyperemia and erosions. Evaluate for bleeding 2/2 to ulcers. -Anemia workup ordered. -For Endoscopy tomorrow, 08/03. NPO after midnight. -Continue IVF; monitor for electrolyte imbalance from diarrhea. -Repeat CBC in the AM, Type and Cross ordered for active bleed.
[2018-08-02] MEDS ORDERED: Lactated Ringer's 1,000 ML IV SCH (22:00)
[2018-08-03 06:24] LABS: BASO % 1.1 % (0.0-2.0); EOS # 0.2 K/uL (0.0-0.7); EOS % 6.1 % (0.0-4.0); HEMOGLOBIN 9.4 g/dL (12.0-16.0); LYMPH # 0.7 K/uL (1.0-4.3); LYMPH % 19.9 % (20.0-40.0); MEAN CELL VOLUME 92.5 fl (81.0-99.0); MEAN CORPUSCULAR HEMOGLOBIN 29.9 pg (27.0-31.0); MEAN CORPUSCULAR HGB CONC 32.3 g/dL (33.0-37.0); MEAN PLATELET VOLUME 10.3 fl (7.2-11.7); MONO # 0.2 K/uL (0.0-0.8); MONO % 5.5 % (0.0-10.0); NEUT # 2.4 K/uL (1.8-7.0); NEUT % 67.4 % (50.0-75.0); NRBC % 0.3 % (0.0-0.0); RBC 3.14 Mil/uL (3.80-5.20); RED CELL DISTRIBUTION WIDTH 18.8 % (11.5-14.5); WHITE BLOOD COUNT 3.6 K/uL (4.8-10.8)
[2018-08-03 06:29] LABS: INR 1.3; PROTHROMBIN TIME 14.3 Seconds (9.8-13.1)
[2018-08-03 06:31] LABS: IRON 93 ug/dL (37-170)
[2018-08-03 06:32] LABS: PARTIAL THROMBOPLASTIN TIME 39.9 Seconds (25.6-37.1)
[2018-08-03 06:36] LABS: ALB/GLOB RATIO 0.9 (1.0-2.1); ALBUMIN 3.3 g/dL (3.5-5.0); ALT/SGPT 23 U/L (9-52); AST/SGOT 38 U/L (14-36); BLOOD UREA NITROGEN 8 mg/dl (7-17); CALCIUM 8.4 mg/dL (8.4-10.2); GFR NON-AFRICAN AMERICAN > 60
[2018-08-03 06:40] LABS: % IRON SATURATION 25 % (20-55); TOTAL IRON BINDING CAPACITY 376 ug/dL (250-450)
[2018-08-03] MEDS: Levothyroxine 175 MCG TAB PO SCH (07:14)
[2018-08-03] MEDS: Insulin Lispro (humaLOG) 100 Units/ml Inj SC SCH (07:30)
[2018-08-03] MEDS: Magnesium Oxide 400 mg Tab UD PO SCH (08:49)
[2018-08-03] MEDS: Sucralfate 1 gm/10 ml Oral Susp UD PO SCH ×3 (08:49→17:06)
[2018-08-03] MEDS: Pantoprazole 40 mg EC Tab PO SCH (08:50)
--- NOTE | 2018-08-03 12:26 | CARD ---
APPROVED REPORT Date of service: 07/30/2018 EKG Measurement Heart [id number] [id number] <Conclusion> Normal sinus rhythm ST & T wave abnormality, consider inferolateral ischemia Prolonged QT Abnormal ECG
[2018-08-03] MEDS ORDERED: Lactated Ringer's 500 ML IV ONE (12:34)
[2018-08-03 13:00] LABS: FOLATE 16.3 ng/mL
[2018-08-03] MEDS ORDERED: Etomidate 20 mg/10ml Inj IV ONE (13:21)
[2018-08-03] MEDS ORDERED: Propofol 10 mg/ml Inj (20 ML) ONE (13:21)
[2018-08-03] MEDS: Mirtazapine 30 MG ODT PO SCH (21:06)
[2018-08-03] MEDS: Insulin Detemir 100 Units/ml Inj SC SCH (23:16)
[2018-08-04] MEDS: Levothyroxine 175 MCG TAB PO SCH (06:31)
[2018-08-04] MEDS: Sucralfate 1 gm/10 ml Oral Susp UD PO SCH (08:21)
[2018-08-04] MEDS: Pantoprazole 40 mg EC Tab PO SCH (08:22)
[2018-08-04] MEDS: Magnesium Oxide 400 mg Tab UD PO SCH (08:22)
[2018-08-04] MEDS: Insulin Lispro (humaLOG) 100 Units/ml Inj SC SCH (08:23)
[2018-08-04 08:26] VITALS: BP 100/63; PULSE 84; RESP 20; TEMP 98.1; O2SAT 98
--- NOTE | 2018-08-04 15:32 | CP.PCM.PN ---
Subjective - Date & Time of Evaluation Date of Evaluation: 08/04/18 Time of Evaluation: 09:00 - Subjective Subjective: Patient without complaint. Receiving Venofer. Objective - Vital Signs/Intake and Output Vital Signs (last 24 hours): Temp Pulse Resp BP Pulse Ox 98.1 F 84 20 100/63 98 08/04/18 08:25 08/04/18 08:25 08/04/18 08:25 08/04/18 08:25 08/04/18 08:25 - Medications Medications: Current Medications Ascorbic Acid (Vitamin C 500 Mg Tab) 500 mg PO DAILY [facility] Last Admin: 08/04/18 08:22 Dose: 500 mg Atorvastatin Calcium (Lipitor) 20 mg PO HS [facility] Last Admin: 08/03/18 21:06 Dose: 20 mg Cyanocobalamin (Vitamin B12 1000 Mcg Tab) 1,000 mcg PO DAILY [facility] Last Admin: 08/04/18 08:21 Dose: 1,000 mcg Ferrous Sulfate (Feosol) 325 mg PO Q8 [facility] Last Admin: 08/04/18 08:21 Dose: 325 mg Gabapentin (Neurontin) 300 mg PO Q12 [facility] Last Admin: 08/04/18 08:21 Dose: 300 mg Hydromorphone HCl (Dilaudid) 1 mg IVP Q4 PRN PRN Reason: Pain, severe (8-10) Last Admin: 08/03/18 21:01 Dose: 1 mg Iron Sucrose 200 mg/ Sodium (Chloride) 110 mls @ 110 mls/hr IVPB DAILY [facility] Stop: 08/05/18 09:01 Last Admin: 08/04/18 08:20 Dose: 110 mls/hr Lactated Ringer's (Lactated Ringer's) 1,000 mls @ 60 mls/hr IV .[id number] [facility] Last Admin: 08/02/18 21:00 Dose: 60 mls/hr Insulin Detemir (Levemir) 34 units SC HS [facility] Last Admin: 08/03/18 23:16 Dose: 34 unit Insulin Human Lispro (Humalog) 15 units SC ACB [facility] Last Admin: 08/04/18 08:23 Dose: 15 units Levothyroxine Sodium (Synthroid) 175 mcg PO DAILY@0630 [facility] Last Admin: 08/04/18 06:31 Dose: 175 mcg Lisinopril (Zestril) 20 mg PO DAILY [facility] Last Admin: 08/04/18 08:22 Dose: 20 mg Magnesium Oxide (Mag-Ox) 400 mg PO DAILY [facility] Last Admin: 08/04/18 08:22 Dose: 400 mg Mirtazapine (Remeron Odt) 30 mg PO HS [facility] Last Admin: 08/03/18 21:06 Dose: 30 mg Pantoprazole Sodium (Protonix Ec Tab) 40 mg PO DAILY [facility] Last Admin: 08/04/18 08:22 Dose: 40 mg Pramipexole Dihydrochloride (Mirapex) 0.5 mg PO HS [facility] Last Admin: 08/03/18 21:06 Dose: 0.5 mg Sucralfate (Carafate Oral Susp) 1 gm PO TID [facility] Last Admin: 08/04/18 08:21 Dose: 1 gm Temazepam (Restoril) 15 mg PO HS PRN PRN Reason: Insomnia Last Admin: 08/04/18 02:35 Dose: 15 mg - Labs Labs: 08/03/18 05:45 08/03/18 05:45 PT 14.3 Seconds (9.8-13.1) H 08/03/18 05:45 INR 1.3 08/03/18 05:45 APTT 39.9 Seconds (25.6-37.1) H 08/03/18 05:45 - Head Exam Head Exam: ATRAUMATIC - Eye Exam Eye Exam: Normal appearance Pupil Exam: NORMAL ACCOMODATION - ENT Exam ENT Exam: Normal Exam - Neck Exam Neck Exam: Full ROM - Respiratory Exam Respiratory Exam: Clear to Ausculation Bilateral - Cardiovascular Exam Cardiovascular Exam: REGULAR RHYTHM - GI/Abdominal Exam GI & Abdominal Exam: Soft, Normal Bowel Sounds. absent: Tenderness Assessment and Plan (1) GI bleed Assessment & Plan: Upper endoscopy showed marked hyperemia of gastric cardia. Will give BID PPI. F/u in 2 weeks in the office. Status: Acute
--- NOTE | 2018-08-04 18:02 | CP.PCM.PN ---
Subjective - Date & Time of Evaluation Date of Evaluation: 08/03/18 Time of Evaluation: 10:30 - Subjective Subjective: Patient remains well Has no chest pain or SOB Afebrile HGb 9.4 No episode of rectal bleed. Objective - Vital Signs/Intake and Output Vital Signs (last 24 hours): Temp Pulse Resp BP Pulse Ox 98.1 F 84 20 100/63 98 08/04/18 08:25 08/04/18 08:25 08/04/18 08:25 08/04/18 08:25 08/04/18 08:25 - Labs Labs: 08/03/18 05:45 08/03/18 05:45 PT 14.3 Seconds (9.8-13.1) H 08/03/18 05:45 INR 1.3 08/03/18 05:45 APTT 39.9 Seconds (25.6-37.1) H 08/03/18 05:45 - Head Exam Head Exam: NORMAL INSPECTION - Eye Exam Eye Exam: Normal appearance - ENT Exam ENT Exam: Mucous Membranes Moist - Respiratory Exam Respiratory Exam: Clear to Ausculation Bilateral - Cardiovascular Exam Cardiovascular Exam: REGULAR RHYTHM - GI/Abdominal Exam GI & Abdominal Exam: Normal Bowel Sounds - Neurological Exam Neurological Exam: Awake, Oriented x3 - Psychiatric Exam Psychiatric exam: Normal Mood Assessment and Plan (1) Erosive gastritis Status: Acute (2) GI bleed Status: Acute (3) Anemia Status: Chronic (4) Hypertension Status: Chronic (5) Diabetes mellitus type 2 in obese Status: Acute (6) Pancytopenia Status: Acute - Assessment and Plan (Free Text) Plan: cONT MEDS FOLLOW UP WITH gi IF STABLE WILL DC TOMORROW
--- NOTE | 2018-08-04 18:05 | CP.PCM.DIS ---
Provider - Provider Date of Admission: 07/30/18 17:58 Attending physician: Scotty Coombs MD Consults: 07/30/18 17:55 Hematology Oncology Consult Stat Comment: Consulting Provider: Arturo Cheung Consulting Physician: Arturo Cheung Reason for Consult: gi bleed 07/31/18 09:00 Case Management Referral Routine Comment: currently has homemaker visits 4hrs a day Physician Instructions: Reason For Exam: needs assistance at home Reason for Referral: Discharge Planning 07/31/18 09:17 Gastroenterology Consult Routine Comment: Consulting Provider: Ashkan Lopez Consulting Physician: Ashkan Lopez Reason for Consult: GI bleed Time Spent in preparation of Discharge (in minutes): 30 Diagnosis - Discharge Diagnosis (1) Erosive gastritis Status: Acute (2) GI bleed Status: Acute (3) Anemia Status: Chronic (4) Hypertension Status: Chronic (5) Diabetes mellitus type 2 in obese Status: Acute (6) Pancytopenia Status: Acute Hospital Course - Lab Results Lab Results: Most Recent Lab Values WBC 3.6 K/uL (4.8-10.8) L 08/03/18 05:45 RBC 3.14 Mil/uL (3.80-5.20) L 08/03/18 05:45 Hgb 9.4 g/dL (12.0-16.0) L 08/03/18 05:45 Hct 29.0 % (34.0-47.0) L 08/03/18 05:45 MCV 92.5 fl (81.0-99.0) 08/03/18 05:45 MCH 29.9 pg (27.0-31.0) 08/03/18 05:45 MCHC 32.3 g/dL (33.0-37.0) L 08/03/18 05:45 RDW 18.8 % (11.5-14.5) H 08/03/18 05:45 Plt Count 116 K/uL (130-400) L 08/03/18 05:45 MPV 10.3 fl (7.2-11.7) 08/03/18 05:45 Neut % (Auto) 67.4 % (50.0-75.0) 08/03/18 05:45 Lymph % (Auto) 19.9 % (20.0-40.0) L 08/03/18 05:45 [place] % (Auto) 5.5 % (0.0-10.0) 08/03/18 05:45 Eos % (Auto) 6.1 % (0.0-4.0) H 08/03/18 05:45 Baso % (Auto) 1.1 % (0.0-2.0) 08/03/18 05:45 Neut # (Auto) 2.4 K/uL (1.8-7.0) 08/03/18 05:45 Lymph # (Auto) 0.7 K/uL (1.0-4.3) L 08/03/18 05:45 [place] # (Auto) 0.2 K/uL (0.0-0.8) 08/03/18 05:45 Eos # (Auto) 0.2 K/uL (0.0-0.7) 08/03/18 05:45 Baso # (Auto) 0.0 K/uL (0.0-0.2) 08/03/18 05:45 PT 14.3 Seconds (9.8-13.1) H 08/03/18 05:45 INR 1.3 08/03/18 05:45 APTT 39.9 Seconds (25.6-37.1) H 08/03/18 05:45 Sodium 140 mmol/l (132-148) 08/03/18 05:45 Potassium 3.7 MMOL/L (3.6-5.0) 08/03/18 05:45 Chloride 106 mmol/L (98-107) 08/03/18 05:45 Carbon Dioxide 25 mmol/L (22-30) 08/03/18 05:45 Anion Gap 13 (10-20) 08/03/18 05:45 BUN 8 mg/dl (7-17) 08/03/18 05:45 Creatinine 0.6 mg/dl (0.7-1.2) L 08/03/18 05:45 Est GFR ( Amer) > 60 08/03/18 05:45 Est GFR (Non-Af Amer) > 60 08/03/18 05:45 POC Glucose (mg/dL) 98 mg/dL (65-110) 08/04/18 11:16 Random Glucose 88 mg/dL (65-105) 08/03/18 05:45 Calcium 8.4 mg/dL (8.4-10.2) 08/03/18 05:45 Iron 93 ug/dL (37-170) 08/03/18 05:45 TIBC 376 ug/dL (250-450) 08/03/18 05:45 % Saturation 25 % (20-55) 08/03/18 05:45 Transferrin 264.66 mg/dL (206-381) 08/03/18 05:45 Ferritin 256.0 ng/Ml (11.1-264.0) 08/03/18 05:45 Total Bilirubin 0.8 mg/dl (0.2-1.3) 08/03/18 05:45 AST 38 U/L (14-36) H 08/03/18 05:45 ALT 23 U/L (9-52) 08/03/18 05:45 Alkaline Phosphatase 96 U/L (38-126) 08/03/18 05:45 Total Protein 6.8 G/DL (6.3-8.2) 08/03/18 05:45 Albumin 3.3 g/dL (3.5-5.0) L 08/03/18 05:45 Globulin 3.6 gm/dL (2.2-3.9) 08/03/18 05:45 Albumin/Globulin Ratio 0.9 (1.0-2.1) L 08/03/18 05:45 Lipase 54 U/L (23-300) 07/30/18 13:30 Vitamin B12 879 pg/mL (239-931) 08/03/18 05:45 Folate 16.3 ng/mL 08/03/18 05:45 Stool Occult Blood Positive (NEGATIVE) H 07/30/18 19:55 Blood Type A POSITIVE 08/03/18 05:45 Antibody Screen Negative 08/03/18 05:45 Crossmatch See Detail 08/03/18 05:45 BBK History Checked Patient has bt 08/03/18 05:45 - Hospital Course Hospital Course: This is a 62 y/o female with hx of recurrent anemia from GI bleed had another episode where she complained of dizziness and black stools. At the ER her Hgb was less than 7 hence was admitted and was given BT. She was started on IV iron GI eval was called and patient remained stable She was discharged in stable condition with Hgb 9.4 . She was advised to follow up in 1 week. Discharge Exam - Head Exam Head Exam: NORMAL INSPECTION - Eye Exam Eye Exam: Normal appearance - Respiratory Exam Respiratory Exam: NORMAL BREATHING PATTERN - Cardiovascular Exam Cardiovascular Exam: REGULAR RHYTHM - GI/Abdominal Exam GI & Abdominal Exam: Normal Bowel Sounds - Psychiatric Exam Psychiatric exam: Normal Mood Discharge Plan - Discharge Medications Prescriptions: Pantoprazole [Protonix EC Tab] 40 mg PO DAILY #30 ect - Follow Up Plan Condition: GUARDED Disposition: HOME/ ROUTINE Instructions: Bloody Stools, Adult (DC), Normocytic Normochromic Anemia (DC) Additional Instructions: hacer bud con flores primario dentro de 1 semana Referrals: Arturo Cheung MD [Staff Provider] - Corby Quispe MD [Staff Provider] - Ashkan Lopez MD [Staff Provider] -
--- NOTE | 2018-08-05 12:25 | CP.PCM.PN ---
Subjective - Date & Time of Evaluation Date of Evaluation: 08/03/18 Time of Evaluation: 17:00 - Subjective Subjective: Feeling better. endoscopy report noted and appreciated. Objective - Vital Signs/Intake and Output Vital Signs (last 24 hours): Temp Pulse Resp BP Pulse Ox 98.1 F 84 20 100/63 98 08/04/18 08:25 08/04/18 08:25 08/04/18 08:25 08/04/18 08:25 08/04/18 08:25 - Labs Labs: 08/03/18 05:45 08/03/18 05:45 PT 14.3 Seconds (9.8-13.1) H 08/03/18 05:45 INR 1.3 08/03/18 05:45 APTT 39.9 Seconds (25.6-37.1) H 08/03/18 05:45 - Head Exam Head Exam: ATRAUMATIC - Eye Exam Eye Exam: Normal appearance - ENT Exam ENT Exam: Mucous Membranes Dry - Respiratory Exam Respiratory Exam: NORMAL BREATHING PATTERN - Cardiovascular Exam Cardiovascular Exam: +S1, +S2 - GI/Abdominal Exam GI & Abdominal Exam: Normal Bowel Sounds Assessment and Plan (1) Pancytopenia Assessment & Plan: liver cirrhosis, pHTN with sequestration chronic GI blood loss with iron deficiency endoscopy report noted and appreciated on IV iron Status: Chronic (2) Colon cancer Assessment & Plan: in remission Status: Acute
--- NOTE | 2018-08-05 12:27 | CP.PCM.PN ---
Subjective - Date & Time of Evaluation Date of Evaluation: 08/04/18 Time of Evaluation: 10:00 - Subjective Subjective: Feels better Objective - Vital Signs/Intake and Output Vital Signs (last 24 hours): Temp Pulse Resp BP Pulse Ox 98.1 F 84 20 100/63 98 08/04/18 08:25 08/04/18 08:25 08/04/18 08:25 08/04/18 08:25 08/04/18 08:25 - Labs Labs: 08/03/18 05:45 08/03/18 05:45 PT 14.3 Seconds (9.8-13.1) H 08/03/18 05:45 INR 1.3 08/03/18 05:45 APTT 39.9 Seconds (25.6-37.1) H 08/03/18 05:45 - Head Exam Head Exam: ATRAUMATIC - Eye Exam Eye Exam: Normal appearance - ENT Exam ENT Exam: Mucous Membranes Dry - Respiratory Exam Respiratory Exam: NORMAL BREATHING PATTERN - Cardiovascular Exam Cardiovascular Exam: +S1, +S2 - GI/Abdominal Exam GI & Abdominal Exam: Normal Bowel Sounds Assessment and Plan (1) Pancytopenia Assessment & Plan: liver cirrhosis, pHTN with splenic sequestration iron deficiency on IV iron GI w/u noted outpatient iron infusion Status: Chronic (2) Colon cancer Assessment & Plan: in remission Status: Acute
== END 2018-08-04 16:00 | disposition home or self-care (01) | DRG 378 ==
LOC: H.ER 13:39 → H.ERHOLD 17:58 → H.MEDSURG1 07-31 00:23
PROVIDERS: ADMIT Family Medicine; ATTEND Family Medicine
PROC: 30233N1 Transfusion of Nonautologous Red Blood Cells into Peripheral Vein, Percutaneous Approach (ICD-10-PCS; 2018-07-30)
PROC: 0DB68ZX Excision of Stomach, Via Natural or Artificial Opening Endoscopic, Diagnostic (ICD-10-PCS; principal; 2018-08-03 14:45)
DX: K62.5 Hemorrhage of anus and rectum (principal); D61.818 Other pancytopenia; K76.6 Portal hypertension; D50.0 Iron deficiency anemia secondary to blood loss (chronic); K74.60 Unspecified cirrhosis of liver; I10 Essential (primary) hypertension; E11.9 Type 2 diabetes mellitus without complications; Z85.038 Personal history of other malignant neoplasm of large intestine; R16.2 Hepatomegaly with splenomegaly, not elsewhere classified; E78.00 Pure hypercholesterolemia, unspecified; E78.5 Hyperlipidemia, unspecified; Z92.21 Personal history of antineoplastic chemotherapy; M06.9 Rheumatoid arthritis, unspecified; K29.60 Other gastritis without bleeding; E66.9 Obesity, unspecified; Z68.36 Body mass index [BMI] 36.0-36.9, adult; K31.89 Other diseases of stomach and duodenum; J44.9 Chronic obstructive pulmonary disease, unspecified; F32.9 Major depressive disorder, single episode, unspecified; E03.9 Hypothyroidism, unspecified; K59.00 Constipation, unspecified

== ENCOUNTER 2018-09-03 23:07 | Inpatient (IN) | payer MEDICARE, MEDICAID ==
[2018-09-03 23:07] VITALS: BMI 40.1
--- NOTE | 2018-09-04 02:07 | ED PDOC ---
HPI: General Adult Time Seen by Provider: 09/03/18 23:35 Chief Complaint (Nursing): Shortness Of Breath Chief Complaint (Provider): Shortness Of Breath History Per: Patient History/Exam Limitations: no limitations Onset/Duration Of Symptoms: Days (x 1) Current Symptoms Are (Timing): Still Present Additional Complaint(s): 63 year old female with a history of GI bleed, anemia and transfusions presents to the ED for evaluation of fatigue, abdominal distension and bilateral leg swelling. Patient was admitted to this hospital for a transfusion last month. She is unable to tolerate any PO. Patient states that she has seen both a tourist guide and a GI specialist for symptoms. Patient has no other complaints. PMD: Dr Norman Past Medical History Reviewed: Historical Data, Nursing Documentation, Vital Signs Vital Signs: Last Vital Signs Temp 98.6 F 09/03/18 23:17 Pulse 84 09/04/18 00:58 Resp 20 09/04/18 00:58 BP 102/47 L 09/04/18 00:58 Pulse Ox 100 09/04/18 00:58 - Medical History PMH: Anemia, Anxiety, Arthritis, Asthma, COPD, Depression, Diabetes, Gastritis, HTN, Hypercholesterolemia, Hyperlipidemia, Hypothyroidism, Malignancy (colon cancer in remission 2005), Obstructive Bowel (small bowel obstruction), Peripheral Edema, Rheumatoid Arthritis Denies: Bronchitis, Deep Vein Thrombosis, Hepatitis, HIV, Hyperthyroidism, Chronic Kidney Disease, Seizures, Sexually Transmitted Disease - Surgical History Surgical History: Appendectomy, Cholecystectomy, Hernia Repair Denies: Pacemaker - Family History Family History: States: Unknown Family Hx, Hypertension - Social History Drugs: Denies - Immunization History Hx Tetanus Toxoid Vaccination: No Hx Influenza Vaccination: Yes Hx Pneumococcal Vaccination: No - Home Medications Home Medications: Ambulatory Orders Medication Instructions Recorded Atorvastatin [Lipitor] 20 mg PO HS 06/25/18 Gabapentin [Neurontin] 300 mg PO Q12 06/25/18 Pramipexole Di-HCl [Mirapex] 0.5 mg PO HS 06/25/18 Cyanocobalamin [Vitamin B12 1000 1,000 mcg PO DAILY 07/21/18 mcg Tab] Ferrous Sulfate 325 mg PO Q8 07/21/18 Insulin Aspart, Recombinant 15 unit SC ACB 07/21/18 [Novolog] Insulin Glargine,Hum.rec.anlog 34 unit [facility] 07/21/18 [Basaglar Kwikpen U-100] Levothyroxine [Synthroid] 175 mcg PO DAILY 07/21/18 Lisinopril [Zestril] 20 mg PO DAILY 07/21/18 Magnesium Oxide [Magox 400] 400 mg PO DAILY 07/21/18 Mirtazapine [Remeron] 30 mg PO HS 07/21/18 Sucralfate [Carafate Oral Susp] 10 ml PO TID 07/21/18 Ascorbic Acid [Vitamin C 500 mg 1 tab PO DAILY 07/30/18 Tab] Pantoprazole [Protonix EC Tab] 40 mg PO DAILY #30 ect 08/04/18 Omeprazole 40 mg PO DAILY 09/04/18 - Allergies Allergies/Adverse Reactions: Allergies Allergy/AdvReac Type Severity Reaction Status Date / Time No Known Allergies Allergy Verified 09/03/18 23:17 Review of Systems ROS Statement: Except As Marked, All Systems Reviewed And Found Negative Constitutional: Positive for: Other (tired) Gastrointestinal: Positive for: Nausea, Other (distension) Musculoskeletal: Positive for: Leg Pain (bilateral leg swelling) Physical Exam - Reviewed Nursing Documentation Reviewed: Yes Vital Signs Reviewed: Yes - Physical Exam Appears: Positive for: Non-toxic, No Acute Distress Head Exam: Positive for: ATRAUMATIC, NORMAL INSPECTION, NORMOCEPHALIC Skin: Positive for: Normal Color, Warm, DRY Eye Exam: Positive for: EOMI, Normal appearance, PERRL Neck: Positive for: Normal, Painless ROM, Supple Cardiovascular/Chest: Positive for: Regular Rate, Rhythm. Negative for: Murmur Respiratory: Positive for: Normal Breath Sounds. Negative for: Respiratory Distress Gastrointestinal/Abdominal: Positive for: Normal Exam, Soft. Negative for: Tenderness Extremity: Positive for: Normal ROM. Negative for: Deformity Neurological/Psych: Positive for: Awake, Alert, Normal Tone, Oriented. Negative for: Motor/Sensory Deficits - Laboratory Results Result Diagrams: 09/07/18 06:00 09/07/18 06:00 - ECG O2 Sat by Pulse Oximetry: 100 (RA) Pulse Ox Interpretation: Normal Medical Decision Making Medical Decision Makin:14 Impression: Initial Plan: symptomatic anemia --Blood type and screen --Cross match --CMP --CBC --Protonix 40 mg IVP --Tylenol 650 mg PO --PTT --PT --Guiac stool --EKG --CT Abd & Pelvis Patient consented for blood transfusion. signed form. understands risks.hiral. pt awake and alert and oriented. 05:03 CT Abd & Pelvis COMPARISON: 07/30/2018. FINDINGS: Interval appearance of mild bilateral pleural effusions. Associated passive atelectatic airspace disease of the lower lobes. Moderate thyromegaly, unchanged. Cirrhotic liver, unchanged. Moderate splenomegaly, unchanged. Mesenteric congestion, portal hypertension. Unchanged. Uncomplicated colonic diverticulosis. Moderate amount of fecal residue in the large bowel. Fluid-filled stomach. Fluid-filled small bowels. Normal extrahepatic biliary system. Normal pancreas. Normal bilateral adrenal glands. Normal size of the right kidney. There is no right renal mass. There are no right renal calculi. There is no right hydronephrosis. Normal visualized right ureter. Normal size of the left kidney. There is no left renal mass. There are no left renal calculi. There is no left hydronephrosis. Normal visualized left ureter. Normal abdominal aorta. Normal inferior vena cava. Normal retroperitoneum. Normal urinary bladder. There is no pelvic mass lesion or lymphadenopathy. Normal abdominal wall. Mild spondylosis. IMPRESSION: Ileus versus developing partial small bowel obstruction. Recurrent finding. Liver cirrhosis, portal hypertension and ascites, unchanged. pt aware of findings, and agree w admission. dr norman accepted admission Scribe Attestation: Documented by Linda James acting as a scribe for Betty Chan MD. Provider Scribe Attestation: All medical record entries made by the Scribe were at my direction and personally dictated by me. I have reviewed the chart and agree that the record accurately reflects my personal performance of the history, physical exam, medical decision making, and the department course for this patient. I have also personally directed, reviewed, and agree with the discharge instructions and disposition. Disposition - Clinical Impression Clinical Impression: Anemia, DWYER (dyspnea on exertion) - Patient ED Disposition Is Patient to be Admitted: Yes Counseled Patient/Family Regarding: Studies Performed, Diagnosis - Disposition Disposition Time: 05:00 Condition: STABLE
[2018-09-04 02:35] LABS: ALB/GLOB RATIO 0.7 (1.0-2.1); ALBUMIN 2.5 g/dL (3.5-5.0); BLOOD UREA NITROGEN 11 mg/dl (7-17); CALCIUM 8.1 mg/dL (8.4-10.2); GFR NON-AFRICAN AMERICAN > 60
[2018-09-04 02:37] LABS: BASO % 1.1 % (0.0-2.0); EOS # 0.1 K/uL (0.0-0.7); EOS % 3.8 % (0.0-4.0); LYMPH # 0.6 K/uL (1.0-4.3); LYMPH % 24.9 % (20.0-40.0); MEAN CELL VOLUME 96.1 fl (81.0-99.0); MEAN CORPUSCULAR HEMOGLOBIN 28.5 pg (27.0-31.0); MEAN CORPUSCULAR HGB CONC 29.7 g/dL (33.0-37.0); MEAN PLATELET VOLUME 11.3 fl (7.2-11.7); MONO # 0.1 K/uL (0.0-0.8); MONO % 5.7 % (0.0-10.0); NEUT # 1.5 K/uL (1.8-7.0); NEUT % 64.5 % (50.0-75.0); NRBC % 0.7 % (0.0-0.0); RBC 1.79 Mil/uL (3.80-5.20); RED CELL DISTRIBUTION WIDTH 17.4 % (11.5-14.5); WHITE BLOOD COUNT 2.3 K/uL (4.8-10.8)
[2018-09-04 02:41] LABS: HEMOGLOBIN 5.1 g/dL (12.0-16.0)
[2018-09-04 02:52] LABS: ALT/SGPT 18 U/L (9-52); AST/SGOT 66 U/L (14-36)
--- NOTE | 2018-09-04 09:08 | CARD ---
APPROVED REPORT Date of service: 09/03/2018 EKG Measurement Heart [id number] <Conclusion> Sinus rhythm with premature atrial complexes ST & T wave abnormality, consider inferior ischemia ST & T wave abnormality, consider anterolateral ischemia Abnormal ECG
--- NOTE | 2018-09-04 09:31 | RAD ---
Date of service: 09/04/2018 HISTORY: admmission COMPARISON: Portable chest 07/12/2018. FINDINGS: LUNGS: Chronic interstitial pulmonary changes are reiterated with slight increase in linear markings bilaterally which may indicate acute interstitial pulmonary disease superimposed on chronic. No consolidation bilaterally. Linear atelectasis identified at the inferior right lung zone. PLEURA: No significant pleural effusion identified, no pneumothorax apparent. CARDIOVASCULAR: No aortic atherosclerotic calcification present. Normal cardiac size. No pulmonary vascular congestion. OSSEOUS STRUCTURES: No significant abnormalities. VISUALIZED UPPER ABDOMEN: Normal. OTHER FINDINGS: None. IMPRESSION: Chronic interstitial pulmonary disease reiterated with potential limited acute interstitial changes superimposed on chronic. No consolidation, pleural effusion or pneumothorax. No pulmonary vascular congestion.
[2018-09-04] MEDS: Sucralfate 1 gm/10 ml Oral Susp UD PO SCH ×3 (10:23→16:58)
[2018-09-04] MEDS: Pantoprazole 40 mg EC Tab PO SCH ×2 (10:24→10:25)
[2018-09-04] MEDS: Magnesium Oxide 400 mg Tab UD PO SCH (10:24)
[2018-09-04] MEDS: Levothyroxine 175 MCG TAB PO SCH (10:25)
--- NOTE | 2018-09-04 10:55 | CT ---
Date of service: 09/04/2018 PROCEDURE: CT Abdomen and Pelvis without intravenous contrast HISTORY: Abdominal distension. COMPARISON: 07/30/2018. CT abdomen and pelvis. TECHNIQUE: Unenhanced. Neither IV nor oral contrast administered Radiation dose: Total exam DLP = 795.61 mGy-cm. This CT exam was performed using one or more of the following dose reduction techniques: Automated exposure control, adjustment of the mA and/or kV according to patient size, and/or use of iterative reconstruction technique. FINDINGS: LOWER THORAX: New pleural effusions and lower lobe infiltrates, findings not seen previously. LIVER: Stable cirrhotic liver GALLBLADDER AND BILE DUCTS: Status post cholecystectomy. No abnormality is seen in the gallbladder fossa. PANCREAS: Atrophic pancreas unchanged. SPLEEN: Stable splenomegaly.. ADRENALS: Unremarkable. No mass. KIDNEYS AND URETERS: Unremarkable. No hydronephrosis. No solid mass. VASCULATURE: Unremarkable. No aortic aneurysm. No atherosclerotic calcification or mural plaque present. BOWEL: Postoperative changes related to bowel resection. Diverticulosis without an acute inflammatory component or other associated pathologic process.. APPENDIX: Unremarkable. Normal appendix. PERITONEUM: Trace right upper quadrant ascites common new finding. No free air. LYMPH NODES: Unremarkable. No enlarged lymph nodes. BLADDER: Unremarkable. REPRODUCTIVE: Prior hysterectomy. BONES: No acute fracture. Hemangioma T9 vertebral body an incidental finding. OTHER FINDINGS: None. IMPRESSION: New lower lobe infiltrate/pleural effusions. Stable cirrhotic liver. Stable splenomegaly.
[2018-09-04] MEDS ORDERED: Dextrose 50% SYRINGE Inj (50 ml) IV PRN (12:17)
[2018-09-04] MEDS ORDERED: Glucagon Recombinant 1 mg Inj IM PRN (12:17)
--- NOTE | 2018-09-04 12:24 | CP.PCM.CON ---
History of Present Illness - History of Present Illness History of Present Illness: 62 year old female with a history of DM, HTN, HL, hypothyroid, colon cancer s/p surgery and adjuvant chemotherapy in 2005, presenting with abdominal pain, found to have pancytopenia with anemia. The patient is known to me from her prior hospitalization. At the time she was GI bleeding and found to have iron deficiency anemia. She was treated with PRBC transfusion and IV iron. She notes to experiencing intermittent bloody bowel movement mixed with dark black stools. She has had multiple endoscopies and notes to recent approval by insurance for capsule endoscopy. Past medical history: DM, HTN, HL, hypothyroid, colon cancer s/p surgery and adjuvant chemotherapy in 2005. Past surgical history: hemicolectomy, cholecystectomy, hernia repair Family history: Denies hematologic and oncologic problems Social history: Denies tobacco, alcohol, and illicit drug use. Allergies: NKA Review of systems: All remaining review of systems including HEENT, cardiovascular, respiratory, gastrointestinal, genitourinary, musculoskeletal, dermatologic, neurologic, and psychiatric are negative unless mentioned in the HPI Past Patient History - Past Medical History & Family History Past Medical History?: Yes - Past Social History Drugs: Denies - CARDIAC Hx Hypercholesterolemia: Yes Hx Hypertension: Yes Hx Pacemaker: No Hx Peripheral Edema: Yes - PULMONARY Hx Asthma: Yes Hx Bronchitis: No Hx Chronic Obstructive Pulmonary Disease (COPD): Yes - NEUROLOGICAL Hx Seizures: No - HEENT Hx HEENT Problems: Yes Hx Cataracts: Yes (right eye) Hx Glaucoma: Yes (left eye) - RENAL Hx Chronic Kidney Disease: No - ENDOCRINE/METABOLIC Hx Hyperthyroidism: No Hx Hypothyroidism: Yes - HEMATOLOGICAL/ONCOLOGICAL Hx Anemia: Yes Hx Human Immunodeficiency Virus (HIV): No - INTEGUMENTARY Hx Dermatological Problems: Yes Other/Comment: Right shine ulcer - MUSCULOSKELETAL/RHEUMATOLOGICAL Hx Arthritis: Yes Hx Rheumatoid Arthritis: Yes - GASTROINTESTINAL Hx Gastritis: Yes - GENITOURINARY/GYNECOLOGICAL Hx Sexually Transmitted Disorders: No - PSYCHIATRIC Hx Anxiety: Yes Hx Depression: Yes - SURGICAL HISTORY Hx Appendectomy: Yes Hx Cholecystectomy: Yes - ANESTHESIA Hx Anesthesia: Yes Hx Anesthesia Reactions: No Hx Malignant Hyperthermia: No Meds Allergies/Adverse Reactions: Allergies Allergy/AdvReac Type Severity Reaction Status Date / Time No Known Allergies Allergy Verified 09/03/18 23:17 - Medications Medications: Current Medications Ascorbic Acid (Vitamin C 500 Mg Tab) 500 mg PO DAILY [facility] Last Admin: 09/04/18 10:25 Dose: Not Given Atorvastatin Calcium (Lipitor) 20 mg PO HS [facility] Cyanocobalamin (Vitamin B12 1000 Mcg Tab) 1,000 mcg PO DAILY [facility] Last Admin: 09/04/18 10:25 Dose: Not Given Dextrose (Dextrose 50% Inj) 0 ml IV STAT PRN; Protocol PRN Reason: Hypoglycemia Protocol Dextrose (Glutose 15) 0 gm PO ONCE PRN; Protocol PRN Reason: Hypoglycemia Protocol Ferrous Sulfate (Feosol) 325 mg PO Q8 [facility] Last Admin: 09/04/18 10:24 Dose: Not Given Gabapentin (Neurontin) 300 mg PO Q12 [facility] Last Admin: 09/04/18 10:24 Dose: Not Given Glucagon (Glucagen Diagnostic Kit) 0 mg IM STAT PRN; Protocol PRN Reason: Hypoglycemia Protocol Ceftriaxone Sodium 1 gm/ (Sodium Chloride) 100 mls @ 100 mls/hr IVPB DAILY [facility]; Protocol Azithromycin 500 mg/ Sodium (Chloride) 250 mls @ 250 mls/hr IVPB DAILY [facility]; Protocol Insulin Detemir (Levemir) 34 units SC HS [facility] Insulin Human Lispro (Humalog) 15 units SC ACB [facility] Insulin Human Regular (Humulin R) 0 units SC ACHS [facility]; Protocol Levothyroxine Sodium (Synthroid) 175 mcg PO DAILY@0630 [facility] Last Admin: 09/04/18 10:25 Dose: Not Given Lisinopril (Zestril) 20 mg PO DAILY [facility] Last Admin: 09/04/18 10:25 Dose: Not Given Magnesium Oxide (Mag-Ox) 400 mg PO DAILY [facility] Last Admin: 09/04/18 10:24 Dose: Not Given Mirtazapine (Remeron Odt) 30 mg PO HS [facility] Ondansetron HCl (Zofran Inj) 4 mg IVP Q4 PRN PRN Reason: Nausea/Vomiting Pantoprazole Sodium (Protonix Ec Tab) 40 mg PO DAILY [facility] Last Admin: 09/04/18 10:24 Dose: Not Given Pantoprazole Sodium (Protonix Ec Tab) 40 mg PO DAILY [facility] Last Admin: 09/04/18 10:25 Dose: Not Given Pramipexole Dihydrochloride (Mirapex) 0.5 mg PO HS [facility] Sucralfate (Carafate Oral Susp) 1 gm PO TID [facility] Last Admin: 09/04/18 10:23 Dose: Not Given Physical Exam - Head Exam Head Exam: ATRAUMATIC - Eye Exam Eye Exam: Normal appearance - ENT Exam ENT Exam: Mucous Membranes Dry - Cardiovascular Exam Cardiovascular Exam: +S1, +S2 - GI/Abdominal Exam GI & Abdominal Exam: Normal Bowel Sounds Results - Vital Signs Recent Vital Signs: Last Vital Signs Temp 98.1 F 09/04/18 10:01 Pulse 79 09/04/18 10:01 Resp 18 09/04/18 10:01 BP 116/59 L 09/04/18 10:01 Pulse Ox 99 09/04/18 09:48 - Labs Result Diagrams: 09/05/18 12:03 09/05/18 12:03 Labs: Laboratory Results - last 24 hr 09/04/18 09/04/18 09/04/18 01:34 02:05 02:05 WBC RBC Hgb Hct MCV MCH MCHC RDW Plt Count MPV Neut % (Auto) Lymph % (Auto) [place] % (Auto) Eos % (Auto) Baso % (Auto) Neut # (Auto) Lymph # (Auto) [place] # (Auto) Eos # (Auto) Baso # (Auto) Sodium 138 Potassium 4.5 Chloride 109 H Carbon Dioxide 25 Anion Gap 9 L BUN 11 Creatinine 0.7 Est GFR ( Amer) > 60 Est GFR (Non-Af Amer) > 60 POC Glucose (mg/dL) 160 H Random Glucose 121 H Calcium 8.1 L Total Bilirubin 0.9 AST 66 H D ALT 18 Alkaline Phosphatase 69 Troponin I 0.0150 Total Protein 6.1 L Albumin 2.5 L D Globulin 3.6 Albumin/Globulin Ratio 0.7 L Stool Occult Blood Blood Type A POSITIVE Antibody Screen Negative Crossmatch See Detail BBK History Checked Patient has bt 09/04/18 09/04/18 02:05 04:50 WBC 2.3 L RBC 1.79 L Hgb 5.1 L* D Hct 17.2 L MCV 96.1 D MCH 28.5 MCHC 29.7 L RDW 17.4 H Plt Count 101 L MPV 11.3 Neut % (Auto) 64.5 Lymph % (Auto) 24.9 [place] % (Auto) 5.7 Eos % (Auto) 3.8 Baso % (Auto) 1.1 Neut # (Auto) 1.5 L Lymph # (Auto) 0.6 L [place] # (Auto) 0.1 Eos # (Auto) 0.1 Baso # (Auto) 0.0 Sodium Potassium Chloride Carbon Dioxide Anion Gap BUN Creatinine Est GFR ( Amer) Est GFR (Non-Af Amer) POC Glucose (mg/dL) Random Glucose Calcium Total Bilirubin AST ALT Alkaline Phosphatase Troponin I Total Protein Albumin Globulin Albumin/Globulin Ratio Stool Occult Blood Negative Blood Type Antibody Screen Crossmatch BBK History Checked Assessment & Plan (1) Pancytopenia Assessment and Plan: liver cirrhosis with splenomegaly splenic sequestration prior iron deficiency; will start IV iron f/u ferritin GI evaluation will consider bone marrow evaluation as outpatient depending on capsule endoscopy Thank you for this interesting consult. Status: Chronic
[2018-09-04] MEDS ORDERED: Lidocaine Hydrochloride 5 ML INJ ONE (12:36)
--- NOTE | 2018-09-04 14:13 | PCM.SURG1 ---
Surgeon's Initial Post Op Note - Surgeon's Notes Surgeon: Julius Bundy MD Scientist/Engineer: NONE Type of Anesthesia: Local Pre-Operative Diagnosis: Poor venous access, anemia Operative Findings: US showed very small basilic and brachial veins. Post-Operative Diagnosis: Poor venous access, anemia Operation Performed: Single lumen picc cut to 20 cm and placed right arm. Tip in axillary vein. Unable to advance picc centrally. Specimen/Specimens Removed: NONE Estimated Blood Loss: EBL {In ML}: 3 Blood Products Given: N/A Drains Used: No Drains Post-Op Condition: Fair Date of Surgery/Procedure: 09/04/18 Time of Surgery/Procedure: 13:50
--- NOTE | 2018-09-04 15:30 | CP.PCM.CON ---
History of Present Illness - History of Present Illness History of Present Illness: 63 yo female with h/o liver cirrhosis, presenting to ER with shortness of breath and weakness. Has had multiple admissions previously for anemia. Last endoscopy about one month ago showed marked hyperemia of gastric cardia. Review of Systems - Constitutional Constitutional: absent: Chills - EENT Eyes: absent: Blurred Vision Nose/Mouth/Throat: absent: Epistaxis - Cardiovascular Cardiovascular: absent: Chest Pain - Respiratory Respiratory: Dyspnea - Gastrointestinal Gastrointestinal: As Per HPI - Genitourinary Genitourinary: absent: Change in Urinary Stream Past Patient History - Past Medical History & Family History Past Medical History?: Yes - Past Social History Drugs: Denies - CARDIAC Hx Hypercholesterolemia: Yes Hx Hypertension: Yes Hx Pacemaker: No Hx Peripheral Edema: Yes - PULMONARY Hx Asthma: Yes Hx Bronchitis: No Hx Chronic Obstructive Pulmonary Disease (COPD): Yes - NEUROLOGICAL Hx Seizures: No - HEENT Hx HEENT Problems: Yes Hx Cataracts: Yes (right eye) Hx Glaucoma: Yes (left eye) - RENAL Hx Chronic Kidney Disease: No - ENDOCRINE/METABOLIC Hx Hyperthyroidism: No Hx Hypothyroidism: Yes - HEMATOLOGICAL/ONCOLOGICAL Hx Anemia: Yes Hx Human Immunodeficiency Virus (HIV): No - INTEGUMENTARY Hx Dermatological Problems: Yes Other/Comment: Right shine ulcer - MUSCULOSKELETAL/RHEUMATOLOGICAL Hx Arthritis: Yes Hx Rheumatoid Arthritis: Yes - GASTROINTESTINAL Hx Gastritis: Yes - GENITOURINARY/GYNECOLOGICAL Hx Sexually Transmitted Disorders: No - PSYCHIATRIC Hx Anxiety: Yes Hx Depression: Yes - SURGICAL HISTORY Hx Appendectomy: Yes Hx Cholecystectomy: Yes - ANESTHESIA Hx Anesthesia: Yes Hx Anesthesia Reactions: No Hx Malignant Hyperthermia: No Meds Allergies/Adverse Reactions: Allergies Allergy/AdvReac Type Severity Reaction Status Date / Time No Known Allergies Allergy Verified 09/03/18 23:17 - Medications Medications: Current Medications Ascorbic Acid (Vitamin C 500 Mg Tab) 500 mg PO DAILY [facility] Last Admin: 09/04/18 10:25 Dose: Not Given Atorvastatin Calcium (Lipitor) 20 mg PO HS [facility] Cyanocobalamin (Vitamin B12 1000 Mcg Tab) 1,000 mcg PO DAILY [facility] Last Admin: 09/04/18 10:25 Dose: Not Given Dextrose (Dextrose 50% Inj) 0 ml IV STAT PRN; Protocol PRN Reason: Hypoglycemia Protocol Dextrose (Glutose 15) 0 gm PO ONCE PRN; Protocol PRN Reason: Hypoglycemia Protocol Ferrous Sulfate (Feosol) 325 mg PO Q8 [facility] Last Admin: 09/04/18 10:24 Dose: Not Given Gabapentin (Neurontin) 300 mg PO Q12 [facility] Last Admin: 09/04/18 10:24 Dose: Not Given Glucagon (Glucagen Diagnostic Kit) 0 mg IM STAT PRN; Protocol PRN Reason: Hypoglycemia Protocol Ceftriaxone Sodium 1 gm/ (Sodium Chloride) 100 mls @ 100 mls/hr IVPB DAILY [facility]; Protocol Azithromycin 500 mg/ Sodium (Chloride) 250 mls @ 250 mls/hr IVPB DAILY [facility]; Protocol Iron Sucrose 200 mg/ Sodium (Chloride) 110 mls @ 110 mls/hr IVPB DAILY [facility] Insulin Detemir (Levemir) 34 units SC HS [facility] Insulin Human Lispro (Humalog) 15 units SC ACB [facility] Insulin Human Regular (Humulin R) 0 units SC ACHS [facility]; Protocol Levothyroxine Sodium (Synthroid) 175 mcg PO DAILY@0630 [facility] Last Admin: 09/04/18 10:25 Dose: Not Given Lisinopril (Zestril) 20 mg PO DAILY [facility] Last Admin: 09/04/18 10:25 Dose: Not Given Magnesium Oxide (Mag-Ox) 400 mg PO DAILY [facility] Last Admin: 09/04/18 10:24 Dose: Not Given Mirtazapine (Remeron Odt) 30 mg PO HS [facility] Ondansetron HCl (Zofran Inj) 4 mg IVP Q4 PRN PRN Reason: Nausea/Vomiting Pantoprazole Sodium (Protonix Ec Tab) 40 mg PO DAILY [facility] Last Admin: 09/04/18 10:24 Dose: Not Given Pantoprazole Sodium (Protonix Ec Tab) 40 mg PO DAILY [facility] Last Admin: 09/04/18 10:25 Dose: Not Given Pramipexole Dihydrochloride (Mirapex) 0.5 mg PO HS [facility] Sucralfate (Carafate Oral Susp) 1 gm PO TID [facility] Last Admin: 09/04/18 13:06 Dose: Not Given Physical Exam - Constitutional Appears: No Acute Distress - Head Exam Head Exam: ATRAUMATIC - Eye Exam Eye Exam: Normal appearance - ENT Exam ENT Exam: Normal Exam - Neck Exam Neck exam: Positive for: Normal Inspection - Respiratory Exam Respiratory Exam: Clear to Auscultation Bilateral - Cardiovascular Exam Cardiovascular Exam: REGULAR RHYTHM, +S1, +S2 - GI/Abdominal Exam GI & Abdominal Exam: Distended, Normal Bowel Sounds Results - Vital Signs Recent Vital Signs: Last Vital Signs Temp 98.0 F 09/04/18 14:54 Pulse 83 09/04/18 14:54 Resp 18 09/04/18 14:54 BP 98/56 L 09/04/18 14:54 Pulse Ox 100 09/04/18 12:45 - Labs Result Diagrams: 09/04/18 02:05 09/04/18 02:05 Labs: Laboratory Results - last 24 hr 09/04/18 09/04/18 09/04/18 01:34 02:05 02:05 WBC RBC Hgb Hct MCV MCH MCHC RDW Plt Count MPV Neut % (Auto) Lymph % (Auto) [place] % (Auto) Eos % (Auto) Baso % (Auto) Neut # (Auto) Lymph # (Auto) [place] # (Auto) Eos # (Auto) Baso # (Auto) Sodium 138 Potassium 4.5 Chloride 109 H Carbon Dioxide 25 Anion Gap 9 L BUN 11 Creatinine 0.7 Est GFR ( Amer) > 60 Est GFR (Non-Af Amer) > 60 POC Glucose (mg/dL) 160 H Random Glucose 121 H Calcium 8.1 L Total Bilirubin 0.9 AST 66 H D ALT 18 Alkaline Phosphatase 69 Troponin I 0.0150 Total Protein 6.1 L Albumin 2.5 L D Globulin 3.6 Albumin/Globulin Ratio 0.7 L Stool Occult Blood Blood Type A POSITIVE Antibody Screen Negative Crossmatch See Detail BBK History Checked Patient has bt 09/04/18 09/04/18 09/04/18 02:05 04:50 12:23 WBC 2.3 L RBC 1.79 L Hgb 5.1 L* D Hct 17.2 L MCV 96.1 D MCH 28.5 MCHC 29.7 L RDW 17.4 H Plt Count 101 L MPV 11.3 Neut % (Auto) 64.5 Lymph % (Auto) 24.9 [place] % (Auto) 5.7 Eos % (Auto) 3.8 Baso % (Auto) 1.1 Neut # (Auto) 1.5 L Lymph # (Auto) 0.6 L [place] # (Auto) 0.1 Eos # (Auto) 0.1 Baso # (Auto) 0.0 Sodium Potassium Chloride Carbon Dioxide Anion Gap BUN Creatinine Est GFR ( Amer) Est GFR (Non-Af Amer) POC Glucose (mg/dL) 109 Random Glucose Calcium Total Bilirubin AST ALT Alkaline Phosphatase Troponin I Total Protein Albumin Globulin Albumin/Globulin Ratio Stool Occult Blood Negative Blood Type Antibody Screen Crossmatch BBK History Checked - Imaging and Cardiology CT scan - abdomen Status: Report reviewed by me Assessment & Plan (1) Anemia Assessment and Plan: Severe anemia. Stool testing this admission negative for occult blood. Also found to have likely pulmonary infiltrates. Iron level ordered. Transfuse to over 8. Will follow with you. Status: Acute
[2018-09-04] MEDS: Insulin Regular 100 units/ml SC SCH ×2 (16:50→21:38)
[2018-09-04] MEDS: Azithromycin 500 MG in Sodium Chloride 0.9% 250 ML IVPB SCH (17:29)
[2018-09-04 18:06] LABS: SQUAMOUS EPITHIAL 2 /hpf (0-5); URINE BACTERIA RARE (<OCC); URINE BILIRUBIN NEGATIVE (NEGATIVE); URINE BLOOD NEGATIVE (NEGATIVE); URINE CLARITY SLIGHTY-CLOUDY (Clear); URINE GLUCOSE (UA) NEG (NEGATIVE); URINE LEUKOCYTE ESTERASE SMALL Leu/uL (Negative); URINE PROTEIN 30 mg/dL (NEGATIVE)
[2018-09-04 18:07] LABS: URINE COLOR DARK YELLOW (YELLOW)
[2018-09-04] MEDS: Mirtazapine 30 MG ODT PO SCH (21:34)
[2018-09-04] MEDS: Insulin Detemir 100 Units/ml Inj SC SCH (21:37)
[2018-09-04 21:56] LABS: HEMOGLOBIN 6.7 g/dL (12.0-16.0); MEAN CELL VOLUME 95.6 fl (81.0-99.0); MEAN CORPUSCULAR HEMOGLOBIN 28.4 pg (27.0-31.0); MEAN CORPUSCULAR HGB CONC 29.7 g/dL (33.0-37.0); RBC 2.35 Mil/uL (3.80-5.20); RED CELL DISTRIBUTION WIDTH 17.5 % (11.5-14.5); WHITE BLOOD COUNT 2.5 K/uL (4.8-10.8)
--- NOTE | 2018-09-04 22:34 | CP.PCM.HP ---
History of Present Illness - History of Present Illness History of Present Illness: This is a 63 y/o female with hx of multiple admissions to the hospital for anemia admitted for sudden drop in Hgb and abdominal distension. She had multiple endoscopies in the past. Sh ehas a hx of colon ca and had surgery in 2005. She was noted to have liver cirrhosis. She claims to have generalized fatigue and body malaise for the past few days. She noted increasing abdominal distension hence sough ER eval. Medical Hx DM 2 colon cancer HTn Hyperlipidemia hypothyroidism anemia Present on Admission - Present on Admission Any Indicators Present on Admission: No History of DVT/PE: No History of Uncontrolled Diabetes: Yes Urinary Catheter: No Decubitus Ulcer Present: No Review of Systems - Constitutional Constitutional: Fatigue - Respiratory Respiratory: Dyspnea - Gastrointestinal Gastrointestinal: Bloating - Musculoskeletal Musculoskeletal: Arthralgias Past Patient History - Past Medical History & Family History Past Medical History?: Yes - Past Social History Drugs: Denies - CARDIAC Hx Hypercholesterolemia: Yes Hx Hypertension: Yes Hx Pacemaker: No Hx Peripheral Edema: Yes - PULMONARY Hx Asthma: Yes Hx Bronchitis: No Hx Chronic Obstructive Pulmonary Disease (COPD): Yes - NEUROLOGICAL Hx Seizures: No - HEENT Hx HEENT Problems: Yes Hx Cataracts: Yes (right eye) Hx Glaucoma: Yes (left eye) - RENAL Hx Chronic Kidney Disease: No - ENDOCRINE/METABOLIC Hx Hyperthyroidism: No Hx Hypothyroidism: Yes - HEMATOLOGICAL/ONCOLOGICAL Hx Anemia: Yes Hx Human Immunodeficiency Virus (HIV): No - INTEGUMENTARY Hx Dermatological Problems: Yes Other/Comment: Right shine ulcer - MUSCULOSKELETAL/RHEUMATOLOGICAL Hx Arthritis: Yes Hx Rheumatoid Arthritis: Yes - GASTROINTESTINAL Hx Gastritis: Yes - GENITOURINARY/GYNECOLOGICAL Hx Sexually Transmitted Disorders: No - PSYCHIATRIC Hx Anxiety: Yes Hx Depression: Yes - SURGICAL HISTORY Hx Appendectomy: Yes Hx Cholecystectomy: Yes - ANESTHESIA Hx Anesthesia: Yes Hx Anesthesia Reactions: No Hx Malignant Hyperthermia: No Meds Allergies/Adverse Reactions: Allergies Allergy/AdvReac Type Severity Reaction Status Date / Time No Known Allergies Allergy Verified 09/03/18 23:17 Physical Exam - Constitutional Additional comments: generalized pallor - ENT Exam ENT Exam: Mucous Membranes Moist - Respiratory Exam Respiratory Exam: Decreased Breath Sounds - Cardiovascular Exam Cardiovascular Exam: REGULAR RHYTHM - GI/Abdominal Exam GI & Abdominal Exam: Diminished Bowel Sounds, Distended - Neurological Exam Neurological exam: Alert, Oriented x3 Results - Vital Signs Recent Vital Signs: Last Vital Signs Temp 98.3 F 09/04/18 20:00 Pulse 84 09/04/18 21:00 Resp 20 09/04/18 20:00 BP 104/70 09/04/18 20:00 Pulse Ox 100 09/04/18 20:00 - Labs Result Diagrams: 09/04/18 21:50 09/04/18 02:05 Labs: Laboratory Results - last 24 hr 09/04/18 09/04/18 09/04/18 01:34 02:05 02:05 WBC RBC Hgb Hct MCV MCH MCHC RDW Plt Count MPV Neut % (Auto) Lymph % (Auto) Hawkins % (Auto) Eos % (Auto) Baso % (Auto) Neut # (Auto) Lymph # (Auto) Hawkins # (Auto) Eos # (Auto) Baso # (Auto) Sodium 138 Potassium 4.5 Chloride 109 H Carbon Dioxide 25 Anion Gap 9 L BUN 11 Creatinine 0.7 Est GFR ( Amer) > 60 Est GFR (Non-Af Amer) > 60 POC Glucose (mg/dL) 160 H Random Glucose 121 H Calcium 8.1 L Total Bilirubin 0.9 AST 66 H D ALT 18 Alkaline Phosphatase 69 Troponin I 0.0150 Total Protein 6.1 L Albumin 2.5 L D Globulin 3.6 Albumin/Globulin Ratio 0.7 L Urine Color Urine Clarity Urine pH Ur Specific [employer] Urine Protein Urine Glucose (UA) Urine Ketones Urine Blood Urine Nitrate Urine Bilirubin Urine Urobilinogen Ur Leukocyte Esterase Urine RBC (Auto) Urine Microscopic WBC Ur Squamous Epith Cells Urine Bacteria Stool Occult Blood Blood Type A POSITIVE Antibody Screen Negative Crossmatch See Detail BBK History Checked Patient has bt 09/04/18 09/04/18 09/04/18 02:05 04:50 12:23 WBC 2.3 L RBC 1.79 L Hgb 5.1 L* D Hct 17.2 L MCV 96.1 D MCH 28.5 MCHC 29.7 L RDW 17.4 H Plt Count 101 L MPV 11.3 Neut % (Auto) 64.5 Lymph % (Auto) 24.9 Hawkins % (Auto) 5.7 Eos % (Auto) 3.8 Baso % (Auto) 1.1 Neut # (Auto) 1.5 L Lymph # (Auto) 0.6 L Hawkins # (Auto) 0.1 Eos # (Auto) 0.1 Baso # (Auto) 0.0 Sodium Potassium Chloride Carbon Dioxide Anion Gap BUN Creatinine Est GFR ( Amer) Est GFR (Non-Af Amer) POC Glucose (mg/dL) 109 Random Glucose Calcium Total Bilirubin AST ALT Alkaline Phosphatase Troponin I Total Protein Albumin Globulin Albumin/Globulin Ratio Urine Color Urine Clarity Urine pH Ur Specific [employer] Urine Protein Urine Glucose (UA) Urine Ketones Urine Blood Urine Nitrate Urine Bilirubin Urine Urobilinogen Ur Leukocyte Esterase Urine RBC (Auto) Urine Microscopic WBC Ur Squamous Epith Cells Urine Bacteria Stool Occult Blood Negative Blood Type Antibody Screen Crossmatch BBK History Checked 09/04/18 09/04/18 09/04/18 16:49 17:40 21:16 WBC RBC Hgb Hct MCV MCH MCHC RDW Plt Count MPV Neut % (Auto) Lymph % (Auto) Hawkins % (Auto) Eos % (Auto) Baso % (Auto) Neut # (Auto) Lymph # (Auto) Hawkins # (Auto) Eos # (Auto) Baso # (Auto) Sodium Potassium Chloride Carbon Dioxide Anion Gap BUN Creatinine Est GFR ( Amer) Est GFR (Non-Af Amer) POC Glucose (mg/dL) 143 H 200 H Random Glucose Calcium Total Bilirubin AST ALT Alkaline Phosphatase Troponin I Total Protein Albumin Globulin Albumin/Globulin Ratio Urine Color Dark yellow Urine Clarity Slighty-cloudy Urine pH 7.0 Ur Specific [employer] 1.026 Urine Protein 30 Urine Glucose (UA) Neg Urine Ketones Negative Urine Blood Negative Urine Nitrate Negative Urine Bilirubin Negative Urine Urobilinogen 1.0 Ur Leukocyte Esterase Small Urine RBC (Auto) 1 Urine Microscopic WBC 14 H Ur Squamous Epith Cells 2 Urine Bacteria Rare Stool Occult Blood Blood Type Antibody Screen Crossmatch BBK History Checked 09/04/18 21:50 WBC 2.5 L RBC 2.35 L Hgb 6.7 L Hct 22.4 L MCV 95.6 MCH 28.4 MCHC 29.7 L RDW 17.5 H Plt Count 87 L MPV Neut % (Auto) Lymph % (Auto) Hawkins % (Auto) Eos % (Auto) Baso % (Auto) Neut # (Auto) Lymph # (Auto) Hawkins # (Auto) Eos # (Auto) Baso # (Auto) Sodium Potassium Chloride Carbon Dioxide Anion Gap BUN Creatinine Est GFR ( Amer) Est GFR (Non-Af Amer) POC Glucose (mg/dL) Random Glucose Calcium Total Bilirubin AST ALT Alkaline Phosphatase Troponin I Total Protein Albumin Globulin Albumin/Globulin Ratio Urine Color Urine Clarity Urine pH Ur Specific [employer] Urine Protein Urine Glucose (UA) Urine Ketones Urine Blood Urine Nitrate Urine Bilirubin Urine Urobilinogen Ur Leukocyte Esterase Urine RBC (Auto) Urine Microscopic WBC Ur Squamous Epith Cells Urine Bacteria Stool Occult Blood Blood Type Antibody Screen Crossmatch BBK History Checked Assessment & Plan (1) Anemia Status: Acute (2) Cirrhosis Status: Acute (3) Gastritis Status: Acute (4) Diabetes Status: Chronic (5) Hypertension Status: Chronic - Assessment and Plan (Free Text) Plan: Transfuse 4 units PRBC GI eval CT scan of the abd follow up NPO for now diuretic
[2018-09-05] MEDS: Levothyroxine 175 MCG TAB PO SCH (06:02)
[2018-09-05] MEDS: Insulin Regular 100 units/ml SC SCH ×4 (06:35→21:27)
[2018-09-05] MEDS: Pantoprazole 40 mg EC Tab PO SCH ×2 (09:41→10:00)
[2018-09-05] MEDS: Magnesium Oxide 400 mg Tab UD PO SCH (09:41)
[2018-09-05] MEDS: Insulin Lispro (humaLOG) 100 Units/ml Inj SC SCH (09:59)
[2018-09-05] MEDS: Sucralfate 1 gm/10 ml Oral Susp UD PO SCH ×3 (11:15→17:19)
[2018-09-05] MEDS: Azithromycin 500 MG in Sodium Chloride 0.9% 250 ML IVPB SCH (11:54)
[2018-09-05 13:01] LABS: HEMOGLOBIN 9.5 g/dL (12.0-16.0); MEAN CELL VOLUME 93.7 fl (81.0-99.0); MEAN CORPUSCULAR HEMOGLOBIN 29.5 pg (27.0-31.0); MEAN CORPUSCULAR HGB CONC 31.5 g/dL (33.0-37.0); RBC 3.22 Mil/uL (3.80-5.20); WHITE BLOOD COUNT 4.2 K/uL (4.8-10.8)
[2018-09-05 14:23] LABS: BLOOD UREA NITROGEN 11 mg/dl (7-17); CALCIUM 8.6 mg/dL (8.4-10.2); GFR NON-AFRICAN AMERICAN > 60
[2018-09-05] MEDS: Mirtazapine 30 MG ODT PO SCH (21:02)
[2018-09-05] MEDS: Insulin Detemir 100 Units/ml Inj SC SCH (21:28)
--- NOTE | 2018-09-05 22:31 | CP.PCM.PN ---
Subjective - Date & Time of Evaluation Date of Evaluation: 09/05/18 Time of Evaluation: 17:00 - Subjective Subjective: Feeling better s/p PRBC transfusion Objective - Vital Signs/Intake and Output Vital Signs (last 24 hours): Temp Pulse Resp BP Pulse Ox 98.3 F 82 17 101/69 100 09/05/18 19:39 09/05/18 19:39 09/05/18 19:39 09/05/18 19:39 09/05/18 19:39 Intake and Output: 09/05/18 09/06/18 18:59 06:59 Intake Total 375 Balance 375 - Medications Medications: Current Medications Ascorbic Acid (Vitamin C 500 Mg Tab) 500 mg PO DAILY [facility] Last Admin: 09/05/18 09:40 Dose: 500 mg Atorvastatin Calcium (Lipitor) 20 mg PO HS [facility] Last Admin: 09/05/18 21:01 Dose: 20 mg Cyanocobalamin (Vitamin B12 1000 Mcg Tab) 1,000 mcg PO DAILY [facility] Last Admin: 09/05/18 09:40 Dose: 1,000 mcg Dextrose (Dextrose 50% Inj) 0 ml IV STAT PRN; Protocol PRN Reason: Hypoglycemia Protocol Dextrose (Glutose 15) 0 gm PO ONCE PRN; Protocol PRN Reason: Hypoglycemia Protocol Ferrous Sulfate (Feosol) 325 mg PO Q8 [facility] Last Admin: 09/05/18 17:19 Dose: 325 mg Furosemide (Lasix) 20 mg IVP BID [facility] Last Admin: 09/05/18 17:21 Dose: Not Given Gabapentin (Neurontin) 300 mg PO Q12 [facility] Last Admin: 09/05/18 21:01 Dose: 300 mg Glucagon (Glucagen Diagnostic Kit) 0 mg IM STAT PRN; Protocol PRN Reason: Hypoglycemia Protocol Hydrocortisone (Hydrocortisone 2.5%) 1 applic TOP BID [facility] Last Admin: 09/05/18 17:20 Dose: 1 applic Ceftriaxone Sodium 1 gm/ (Sodium Chloride) 100 mls @ 100 mls/hr IVPB DAILY [facility]; Protocol Last Admin: 09/05/18 10:52 Dose: 100 mls/hr Azithromycin 500 mg/ Sodium (Chloride) 250 mls @ 250 mls/hr IVPB DAILY [facility]; Protocol Last Admin: 09/05/18 11:54 Dose: 250 mls/hr Iron Sucrose 200 mg/ Sodium (Chloride) 110 mls @ 110 mls/hr IVPB DAILY [facility] Last Admin: 09/05/18 09:42 Dose: 110 mls/hr Insulin Detemir (Levemir) 34 units SC HS [facility] Last Admin: 09/05/18 21:28 Dose: 34 units Insulin Human Lispro (Humalog) 15 units SC ACB [facility] Last Admin: 09/05/18 09:59 Dose: Not Given Insulin Human Regular (Humulin R) 0 units SC [facility]; Protocol Last Admin: 09/05/18 21:27 Dose: Not Given Levothyroxine Sodium (Synthroid) 175 mcg PO DAILY@0630 [facility] Last Admin: 09/05/18 06:02 Dose: 175 mcg Lisinopril (Zestril) 20 mg PO DAILY [facility] Last Admin: 09/05/18 09:41 Dose: 20 mg Magnesium Oxide (Mag-Ox) 400 mg PO DAILY [facility] Last Admin: 09/05/18 09:41 Dose: 400 mg Mirtazapine (Remeron Odt) 30 mg PO [facility] Last Admin: 09/05/18 21:02 Dose: 30 mg Morphine Sulfate (Morphine) 2 mg IVP Q6 PRN PRN Reason: Pain, severe (8-10) Last Admin: 09/04/18 23:21 Dose: 2 mg Ondansetron HCl (Zofran Inj) 4 mg IVP Q4 PRN PRN Reason: Nausea/Vomiting Pantoprazole Sodium (Protonix Ec Tab) 40 mg PO DAILY [facility] Last Admin: 09/05/18 09:41 Dose: 40 mg Pramipexole Dihydrochloride (Mirapex) 0.5 mg PO [facility] Last Admin: 09/05/18 21:01 Dose: 0.5 mg Spironolactone (Aldactone) 50 mg PO DAILY [facility] Sucralfate (Carafate Oral Susp) 1 gm PO TID [facility] Last Admin: 09/05/18 17:19 Dose: 1 gm - Labs Labs: 09/05/18 12:03 09/05/18 12:03 - Head Exam Head Exam: ATRAUMATIC - Eye Exam Eye Exam: Normal appearance - ENT Exam ENT Exam: Mucous Membranes Dry - Respiratory Exam Respiratory Exam: NORMAL BREATHING PATTERN - Cardiovascular Exam Cardiovascular Exam: +S1, +S2 - GI/Abdominal Exam GI & Abdominal Exam: Normal Bowel Sounds Assessment and Plan (1) Pancytopenia Assessment & Plan: liver cirrhosis, splenic sequestration FOBT negative s/p PRBC transfusion outpatient capsule endoscopy as pt reports this was approved by her insurance company if pt not felt to have GI bloodloss, will plan for outpatient bone marrow biopsy on IV iron Status: Chronic
--- NOTE | 2018-09-06 00:25 | CP.PCM.PN ---
Subjective - Date & Time of Evaluation Date of Evaluation: 09/05/18 Time of Evaluation: 23:00 - Subjective Subjective: Patient better post transfusion, No evidence of GI bleeding. Objective - Vital Signs/Intake and Output Vital Signs (last 24 hours): Temp Pulse Resp BP Pulse Ox 98.3 F 82 17 101/69 100 09/05/18 19:39 09/05/18 19:39 09/05/18 19:39 09/05/18 19:39 09/05/18 19:39 Intake and Output: 09/05/18 09/06/18 18:59 06:59 Intake Total 375 Balance 375 - Medications Medications: Current Medications Ascorbic Acid (Vitamin C 500 Mg Tab) 500 mg PO DAILY [facility] Last Admin: 09/05/18 09:40 Dose: 500 mg Atorvastatin Calcium (Lipitor) 20 mg PO HS [facility] Last Admin: 09/05/18 21:01 Dose: 20 mg Cyanocobalamin (Vitamin B12 1000 Mcg Tab) 1,000 mcg PO DAILY [facility] Last Admin: 09/05/18 09:40 Dose: 1,000 mcg Dextrose (Dextrose 50% Inj) 0 ml IV STAT PRN; Protocol PRN Reason: Hypoglycemia Protocol Dextrose (Glutose 15) 0 gm PO ONCE PRN; Protocol PRN Reason: Hypoglycemia Protocol Ferrous Sulfate (Feosol) 325 mg PO Q8 [facility] Last Admin: 09/05/18 17:19 Dose: 325 mg Furosemide (Lasix) 20 mg IVP BID [facility] Last Admin: 09/05/18 17:21 Dose: Not Given Gabapentin (Neurontin) 300 mg PO Q12 [facility] Last Admin: 09/05/18 21:01 Dose: 300 mg Glucagon (Glucagen Diagnostic Kit) 0 mg IM STAT PRN; Protocol PRN Reason: Hypoglycemia Protocol Hydrocortisone (Hydrocortisone 2.5%) 1 applic TOP BID [facility] Last Admin: 09/05/18 17:20 Dose: 1 applic Ceftriaxone Sodium 1 gm/ (Sodium Chloride) 100 mls @ 100 mls/hr IVPB DAILY [facility]; Protocol Last Admin: 09/05/18 10:52 Dose: 100 mls/hr Azithromycin 500 mg/ Sodium (Chloride) 250 mls @ 250 mls/hr IVPB DAILY [facility]; Protocol Last Admin: 09/05/18 11:54 Dose: 250 mls/hr Iron Sucrose 200 mg/ Sodium (Chloride) 110 mls @ 110 mls/hr IVPB DAILY [facility] Last Admin: 09/05/18 09:42 Dose: 110 mls/hr Insulin Detemir (Levemir) 34 units SC HS [facility] Last Admin: 09/05/18 21:28 Dose: 34 units Insulin Human Lispro (Humalog) 15 units SC ACB [facility] Last Admin: 09/05/18 09:59 Dose: Not Given Insulin Human Regular (Humulin R) 0 units SC ACHS [facility]; Protocol Last Admin: 09/05/18 21:27 Dose: Not Given Levothyroxine Sodium (Synthroid) 175 mcg PO DAILY@0630 [facility] Last Admin: 09/05/18 06:02 Dose: 175 mcg Lisinopril (Zestril) 20 mg PO DAILY [facility] Last Admin: 09/05/18 09:41 Dose: 20 mg Magnesium Oxide (Mag-Ox) 400 mg PO DAILY [facility] Last Admin: 09/05/18 09:41 Dose: 400 mg Mirtazapine (Remeron Odt) 30 mg PO [facility] Last Admin: 09/05/18 21:02 Dose: 30 mg Morphine Sulfate (Morphine) 2 mg IVP Q6 PRN PRN Reason: Pain, severe (8-10) Last Admin: 09/04/18 23:21 Dose: 2 mg Ondansetron HCl (Zofran Inj) 4 mg IVP Q4 PRN PRN Reason: Nausea/Vomiting Pantoprazole Sodium (Protonix Ec Tab) 40 mg PO DAILY [facility] Last Admin: 09/05/18 09:41 Dose: 40 mg Pramipexole Dihydrochloride (Mirapex) 0.5 mg PO [facility] Last Admin: 09/05/18 21:01 Dose: 0.5 mg Spironolactone (Aldactone) 50 mg PO DAILY [facility] Sucralfate (Carafate Oral Susp) 1 gm PO TID [facility] Last Admin: 09/05/18 17:19 Dose: 1 gm - Labs Labs: 09/05/18 12:03 09/05/18 12:03 - Head Exam Head Exam: ATRAUMATIC - Eye Exam Eye Exam: Normal appearance - ENT Exam ENT Exam: Mucous Membranes Moist - Neck Exam Neck Exam: Full ROM - Respiratory Exam Respiratory Exam: Clear to Ausculation Bilateral - Cardiovascular Exam Cardiovascular Exam: REGULAR RHYTHM - GI/Abdominal Exam GI & Abdominal Exam: Soft, Normal Bowel Sounds. absent: Tenderness Assessment and Plan (1) Anemia Assessment & Plan: Stable post transfusion. normal Ferritin level. Possible capsule small bowel endoscopy and bone marrow as outpatient as per Hematology. Status: Acute
[2018-09-06 06:33] LABS: HEMOGLOBIN 8.8 g/dL (12.0-16.0); MEAN CELL VOLUME 94.2 fl (81.0-99.0); MEAN CORPUSCULAR HEMOGLOBIN 29.7 pg (27.0-31.0); MEAN CORPUSCULAR HGB CONC 31.6 g/dL (33.0-37.0); RBC 2.95 Mil/uL (3.80-5.20); RED CELL DISTRIBUTION WIDTH 16.7 % (11.5-14.5); WHITE BLOOD COUNT 3.4 K/uL (4.8-10.8)
[2018-09-06 06:58] LABS: ALB/GLOB RATIO 0.8 (1.0-2.1); ALBUMIN 2.7 g/dL (3.5-5.0); ALT/SGPT 17 U/L (9-52); AST/SGOT 31 U/L (14-36); BLOOD UREA NITROGEN 9 mg/dl (7-17); CALCIUM 8.2 mg/dL (8.4-10.2); GFR NON-AFRICAN AMERICAN > 60
[2018-09-06] MEDS: Levothyroxine 175 MCG TAB PO SCH (06:58)
[2018-09-06] MEDS: Insulin Regular 100 units/ml SC SCH ×4 (07:50→22:05)
[2018-09-06] MEDS: Insulin Lispro (humaLOG) 100 Units/ml Inj SC SCH (08:17)
[2018-09-06] MEDS: Azithromycin 500 MG in Sodium Chloride 0.9% 250 ML IVPB SCH (08:26)
[2018-09-06] MEDS: Sucralfate 1 gm/10 ml Oral Susp UD PO SCH ×3 (08:27→17:14)
[2018-09-06] MEDS: Pantoprazole 40 mg EC Tab PO SCH (08:28)
[2018-09-06] MEDS: Magnesium Oxide 400 mg Tab UD PO SCH (08:29)
--- NOTE | 2018-09-06 20:25 | CP.PCM.PN ---
Subjective - Date & Time of Evaluation Date of Evaluation: 09/06/18 Time of Evaluation: 20:22 - Subjective Subjective: Patient with loose BMs today containing blood. Objective - Vital Signs/Intake and Output Vital Signs (last 24 hours): Temp Pulse Resp BP Pulse Ox 98.3 F 78 18 124/78 99 09/06/18 16:21 09/06/18 16:21 09/06/18 16:21 09/06/18 17:15 09/06/18 16:21 - Medications Medications: Current Medications Ascorbic Acid (Vitamin C 500 Mg Tab) 500 mg PO DAILY [facility] Last Admin: 09/06/18 08:28 Dose: 500 mg Atorvastatin Calcium (Lipitor) 20 mg PO HS [facility] Last Admin: 09/05/18 21:01 Dose: 20 mg Cyanocobalamin (Vitamin B12 1000 Mcg Tab) 1,000 mcg PO DAILY [facility] Last Admin: 09/06/18 08:29 Dose: 1,000 mcg Dextrose (Dextrose 50% Inj) 0 ml IV STAT PRN; Protocol PRN Reason: Hypoglycemia Protocol Dextrose (Glutose 15) 0 gm PO ONCE PRN; Protocol PRN Reason: Hypoglycemia Protocol Ferrous Sulfate (Feosol) 325 mg PO Q8 [facility] Last Admin: 09/06/18 17:15 Dose: 325 mg Furosemide (Lasix) 20 mg IVP BID [facility] Last Admin: 09/06/18 17:15 Dose: 20 mg Gabapentin (Neurontin) 300 mg PO Q12 [facility] Last Admin: 09/06/18 08:28 Dose: 300 mg Glucagon (Glucagen Diagnostic Kit) 0 mg IM STAT PRN; Protocol PRN Reason: Hypoglycemia Protocol Hydrocortisone (Hydrocortisone 2.5%) 1 applic TOP BID [facility] Last Admin: 09/06/18 17:15 Dose: 1 applic Ceftriaxone Sodium 1 gm/ (Sodium Chloride) 100 mls @ 100 mls/hr IVPB DAILY [facility]; Protocol Last Admin: 09/06/18 08:27 Dose: 100 mls/hr Azithromycin 500 mg/ Sodium (Chloride) 250 mls @ 250 mls/hr IVPB DAILY [facility]; Protocol Last Admin: 09/06/18 08:26 Dose: 250 mls/hr Iron Sucrose 200 mg/ Sodium (Chloride) 110 mls @ 110 mls/hr IVPB DAILY [facility] Last Admin: 09/06/18 08:25 Dose: 110 mls/hr Insulin Detemir (Levemir) 34 units SC HS [facility] Last Admin: 09/05/18 21:28 Dose: 34 units Insulin Human Lispro (Humalog) 15 units SC ACB [facility] Last Admin: 09/06/18 08:17 Dose: Not Given Insulin Human Regular (Humulin R) 0 units SC [facility]; Protocol Last Admin: 09/06/18 16:55 Dose: Not Given Levothyroxine Sodium (Synthroid) 175 mcg PO DAILY@0630 [facility] Last Admin: 09/06/18 06:58 Dose: 175 mcg Lisinopril (Zestril) 20 mg PO DAILY [facility] Last Admin: 09/06/18 08:28 Dose: 20 mg Magnesium Oxide (Mag-Ox) 400 mg PO DAILY [facility] Last Admin: 09/06/18 08:29 Dose: 400 mg Mirtazapine (Remeron Odt) [address] [facility] Last Admin: 09/05/18 21:02 Dose: 30 mg Morphine Sulfate (Morphine) 2 mg IVP Q6 PRN PRN Reason: Pain, severe (8-10) Last Admin: 09/04/18 23:21 Dose: 2 mg Ondansetron HCl (Zofran Inj) 4 mg IVP Q4 PRN PRN Reason: Nausea/Vomiting Pantoprazole Sodium (Protonix Ec Tab) 40 mg PO DAILY [facility] Last Admin: 09/06/18 08:28 Dose: 40 mg Pramipexole Dihydrochloride (Mirapex) 0.5 mg PO [facility] Last Admin: 09/05/18 21:01 Dose: 0.5 mg Spironolactone (Aldactone) 50 mg PO DAILY [facility] Last Admin: 09/06/18 08:29 Dose: 50 mg Sucralfate (Carafate Oral Susp) 1 gm PO TID [facility] Last Admin: 09/06/18 17:14 Dose: 1 gm - Labs Labs: 09/06/18 04:30 09/06/18 04:30 - Head Exam Head Exam: ATRAUMATIC - Eye Exam Eye Exam: Normal appearance - ENT Exam ENT Exam: Normal Exam - Respiratory Exam Respiratory Exam: Clear to Ausculation Bilateral - Cardiovascular Exam Cardiovascular Exam: +S1, +S2 - GI/Abdominal Exam GI & Abdominal Exam: Distended, Soft Assessment and Plan (1) Anemia Assessment & Plan: Rectal bleeding occurred earlier today. No active bleeding now. Continue pantoprazole and sucralfate. Hgb and INR in AM. Status: Acute
[2018-09-06] MEDS: Insulin Detemir 100 Units/ml Inj SC SCH (22:07)
[2018-09-06] MEDS: Mirtazapine 30 MG ODT PO SCH (22:08)
[2018-09-07 06:15] LABS: HEMOGLOBIN 8.6 g/dL (12.0-16.0); MEAN CELL VOLUME 95.7 fl (81.0-99.0); MEAN CORPUSCULAR HEMOGLOBIN 29.6 pg (27.0-31.0); RBC 2.89 Mil/uL (3.80-5.20); RED CELL DISTRIBUTION WIDTH 16.7 % (11.5-14.5); WHITE BLOOD COUNT 3.4 K/uL (4.8-10.8)
[2018-09-07 06:24] LABS: INR 1.3; PROTHROMBIN TIME 15.3 Seconds (9.8-13.1)
[2018-09-07 06:33] LABS: ALB/GLOB RATIO 0.8 (1.0-2.1); ALBUMIN 2.6 g/dL (3.5-5.0); ALT/SGPT 27 U/L (9-52); AST/SGOT 31 U/L (14-36); BLOOD UREA NITROGEN 9 mg/dl (7-17); CALCIUM 8.1 mg/dL (8.4-10.2); GFR NON-AFRICAN AMERICAN > 60
[2018-09-07] MEDS: Levothyroxine 175 MCG TAB PO SCH (06:34)
[2018-09-07] MEDS: Insulin Regular 100 units/ml SC SCH ×4 (07:30→22:37)
[2018-09-07] MEDS: Sucralfate 1 gm/10 ml Oral Susp UD PO SCH ×3 (08:44→17:53)
[2018-09-07] MEDS: Magnesium Oxide 400 mg Tab UD PO SCH (08:45)
[2018-09-07] MEDS: Pantoprazole 40 mg EC Tab PO SCH (08:46)
[2018-09-07] MEDS: Insulin Lispro (humaLOG) 100 Units/ml Inj SC SCH (08:47)
[2018-09-07] MEDS: Azithromycin 500 MG in Sodium Chloride 0.9% 250 ML IVPB SCH (08:49)
--- NOTE | 2018-09-07 10:30 | VASCULAR ---
PROCEDURE: Date of procedure: 09/04/2018 Procedure: 1. Placement of a right arm PICC with ultrasound and fluoroscopic guidance, CPT 26109 2. PICC tip confirmation with spot radiograph and is in the superior vena cava Medications: 1 percent lidocaine Total Fluoro time: 15.6 Seconds Radiation: 2.24 MGy EBL: 2 cc HISTORY: Infection requiring long-term IV antibiotics TECHNIQUE: Following informed consent and procedure time-out, the patient was placed supine on the interventional table and the right arm prepped and draped in the usual sterile fashion. Ultrasound showed small brachial and basilic veins. The basilic vein is compressible. With effort, the basilic vein was accessed with micropuncture technique. A guidewire was advanced into the subclavian vein. An image documenting ultrasound guidance for vascular access was permanently saved. The length of the single-lumen 4 [place] PICC was trimmed to 20 centimeters and advanced through a peel-away sheath. The PICC could not be advanced beyond the axillary vein into this superior vena cava. The PICC was position with tip of PICC confirm a spot radiograph the axillary vein. The PICC was secured to the patient's skin. The PICC was flushed. A biopatch and sterile dressing was applied. IMPRESSION: Placement of a single-lumen 4 [place] PICC trimmed to 20 centimeters via right basilic vein. The tip of the PICC is confirmed with spot radiograph and is in the axillary vein. The PICC could not be advanced centrally.
--- NOTE | 2018-09-07 11:13 | CP.PCM.PN ---
Subjective - Date & Time of Evaluation Date of Evaluation: 09/05/18 Time of Evaluation: 11:00 - Subjective Subjective: patient seen and examined at bedside. Interim events noted feels weak/fatigued denies cp/sob/fever/chills. available diagnostic data reviewed Review of Systems All systems: reviewed and no additional remarkable complaints except mentioned above Objective Vital Signs Stable - Constitutional Appears: Non-toxic, No Acute Distress, Chronically Ill Head Exam: NORMAL INSPECTION Eye Exam: Normal appearance Respiratory Exam: NORMAL BREATHING PATTERN Cardiovascular Exam: +S1, +S2 GI & Abdominal Exam: Soft Neurological Exam: Alert, Awake Psychiatric exam: Normal Affect, Normal Mood Skin Exam: Normal Color, Warm Assessment and Plan monitor vitals monitor labs Cont meds Cont tx pRBC transfusion, monitor hgb consultants appreciated input rest of plan as ordered
--- NOTE | 2018-09-07 11:16 | CP.PCM.PN ---
Subjective - Date & Time of Evaluation Date of Evaluation: 09/06/18 Time of Evaluation: 11:00 - Subjective Subjective: patient seen and examined at bedside. Spoke with son at bedside. Interim events noted No complaints offered at this time, feels better s/p pRBC states diarrhea, possible blood? denies cp/sob/fever/chills. available diagnostic data reviewed Review of Systems All systems: reviewed and no additional remarkable complaints except mentioned above Objective Vital Signs Stable - Constitutional Appears: Non-toxic, No Acute Distress Head Exam: NORMAL INSPECTION Eye Exam: Normal appearance Respiratory Exam: NORMAL BREATHING PATTERN Cardiovascular Exam: +S1, +S2 GI & Abdominal Exam: Soft Neurological Exam: Alert, Awake Psychiatric exam: Normal Affect, Normal Mood Skin Exam: Normal Color, Warm Assessment and Plan monitor vitals monitor labs Cont meds Cont tx hgb improved though mild drop, will trend consultants appreciated input rest of plan as ordered Assessment and Plan (1) Pneumonia Status: Acute (2) Pancytopenia Status: Acute
--- NOTE | 2018-09-07 11:18 | CP.PCM.PN ---
Subjective - Date & Time of Evaluation Date of Evaluation: 09/07/18 Time of Evaluation: 10:00 - Subjective Subjective: patient seen and examined at bedside. Interim events noted No complaints offered at this time states diarrhea persists, ocasionally lightheadedness denies cp/sob/fever/chills. available diagnostic data reviewed Review of Systems All systems: reviewed and no additional remarkable complaints except mentioned above Objective Vital Signs Stable - Constitutional Appears: Non-toxic, No Acute Distress Head Exam: NORMAL INSPECTION Eye Exam: Normal appearance Respiratory Exam: NORMAL BREATHING PATTERN Cardiovascular Exam: +S1, +S2 GI & Abdominal Exam: Soft Neurological Exam: Alert, Awake Psychiatric exam: Normal Affect, Normal Mood Skin Exam: Normal Color, Warm Assessment and Plan monitor vitals monitor labs Cont meds Cont tx hgb stable GI following PT if amendable consultants appreciated input rest of plan as ordered Objective - Vital Signs/Intake and Output Vital Signs (last 24 hours): Temp Pulse Resp BP Pulse Ox 98.3 F 86 20 121/75 100 09/07/18 09:07 09/07/18 09:07 09/07/18 09:07 09/07/18 09:07 09/07/18 10:53 - Medications Medications: Current Medications Ascorbic Acid (Vitamin C 500 Mg Tab) 500 mg PO DAILY [facility] Last Admin: 09/07/18 08:45 Dose: 500 mg Atorvastatin Calcium (Lipitor) 20 mg PO HS [facility] Last Admin: 09/06/18 22:02 Dose: 20 mg Cyanocobalamin (Vitamin B12 1000 Mcg Tab) 1,000 mcg PO DAILY [facility] Last Admin: 09/07/18 08:45 Dose: 1,000 mcg Dextrose (Dextrose 50% Inj) 0 ml IV STAT PRN; Protocol PRN Reason: Hypoglycemia Protocol Dextrose (Glutose 15) 0 gm PO ONCE PRN; Protocol PRN Reason: Hypoglycemia Protocol Ferrous Sulfate (Feosol) 325 mg PO Q8 [facility] Last Admin: 09/07/18 08:44 Dose: 325 mg Furosemide (Lasix) 20 mg IVP BID [facility] Last Admin: 09/07/18 08:48 Dose: 20 mg Gabapentin (Neurontin) 300 mg PO Q12 [facility] Last Admin: 09/07/18 08:45 Dose: 300 mg Glucagon (Glucagen Diagnostic Kit) 0 mg IM STAT PRN; Protocol PRN Reason: Hypoglycemia Protocol Hydrocortisone (Hydrocortisone 2.5%) 1 applic TOP BID [facility] Last Admin: 09/07/18 08:50 Dose: 1 applic Ceftriaxone Sodium 1 gm/ (Sodium Chloride) 100 mls @ 100 mls/hr IVPB DAILY [facility]; Protocol Last Admin: 09/07/18 08:48 Dose: 100 mls/hr Azithromycin 500 mg/ Sodium (Chloride) 250 mls @ 250 mls/hr IVPB DAILY [facility]; Protocol Last Admin: 09/07/18 08:49 Dose: 250 mls/hr Iron Sucrose 200 mg/ Sodium (Chloride) 110 mls @ 110 mls/hr IVPB DAILY [facility] Last Admin: 09/07/18 08:49 Dose: 110 mls/hr Insulin Detemir (Levemir) 34 units SC HS [facility] Last Admin: 09/06/18 22:07 Dose: 34 units Insulin Human Lispro (Humalog) 15 units SC ACB [facility] Last Admin: 09/07/18 08:47 Dose: Not Given Insulin Human Regular (Humulin R) 0 units SC [facility]; Protocol Last Admin: 09/07/18 07:30 Dose: Not Given Levothyroxine Sodium (Synthroid) 175 mcg PO DAILY@0630 [facility] Last Admin: 09/07/18 06:34 Dose: 175 mcg Lisinopril (Zestril) 20 mg PO DAILY [facility] Last Admin: 09/07/18 08:45 Dose: 20 mg Magnesium Oxide (Mag-Ox) 400 mg PO DAILY [facility] Last Admin: 09/07/18 08:45 Dose: 400 mg Mirtazapine (Remeron Odt) 30 mg PO [facility] Last Admin: 09/06/18 22:08 Dose: 30 mg Morphine Sulfate (Morphine) 2 mg IVP Q6 PRN PRN Reason: Pain, severe (8-10) Last Admin: 09/07/18 06:40 Dose: 2 mg Ondansetron HCl (Zofran Inj) 4 mg IVP Q4 PRN PRN Reason: Nausea/Vomiting Pantoprazole Sodium (Protonix Ec Tab) 40 mg PO DAILY [facility] Last Admin: 09/07/18 08:46 Dose: 40 mg Pramipexole Dihydrochloride (Mirapex) 0.5 mg PO [facility] Last Admin: 09/06/18 22:08 Dose: 0.5 mg Spironolactone (Aldactone) 50 mg PO DAILY [facility] Last Admin: 09/07/18 08:46 Dose: 50 mg Sucralfate (Carafate Oral Susp) 1 gm PO TID [facility] Last Admin: 09/07/18 08:44 Dose: 1 gm - Labs Labs: 09/07/18 06:00 09/07/18 06:00 PT 15.3 Seconds (9.8-13.1) H 09/07/18 06:00 INR 1.3 09/07/18 06:00 Assessment and Plan (1) Pneumonia Status: Acute (2) Pancytopenia Status: Acute
--- NOTE | 2018-09-07 11:54 | RAD ---
Date of service: 09/07/2018 HISTORY: Follow-up COMPARISON: 09/04/2018. TECHNIQUE: Chest PA and lateral FINDINGS: LINES AND TUBES: None. LUNG AND PLEURA: The lungs are well inflated. There is interval mild improved aeration in the lungs. There is subsegmental atelectasis in the left lower lobe. No pleural effusion or pneumothorax. HEART AND MEDIASTINUM: The heart is not enlarged. No aortic atherosclerotic calcifications present. The hilar and mediastinal contours are within normal limits. SKELETAL STRUCTURES: The bony structures are within normal limits for the patient's age. VISUALIZED UPPER ABDOMEN: Normal. OTHER FINDINGS: None. IMPRESSION: Interval improved aeration in the lungs with decrease in pulmonary venous congestion. Patchy airspace disease in the left lower lobe likely subsegmental atelectasis.
--- NOTE | 2018-09-07 20:10 | CP.PCM.PN ---
Subjective - Date & Time of Evaluation Date of Evaluation: 09/07/18 Time of Evaluation: 12:00 - Subjective Subjective: Patient without further overt bleeding. Objective - Vital Signs/Intake and Output Vital Signs (last 24 hours): Temp Pulse Resp BP Pulse Ox 98.5 F 80 16 116/65 99 09/07/18 20:07 09/07/18 20:07 09/07/18 20:07 09/07/18 20:07 09/07/18 20:07 - Medications Medications: Current Medications Ascorbic Acid (Vitamin C 500 Mg Tab) 500 mg PO DAILY [facility] Last Admin: 09/07/18 08:45 Dose: 500 mg Atorvastatin Calcium (Lipitor) 20 mg PO HS [facility] Last Admin: 09/06/18 22:02 Dose: 20 mg Cyanocobalamin (Vitamin B12 1000 Mcg Tab) 1,000 mcg PO DAILY [facility] Last Admin: 09/07/18 08:45 Dose: 1,000 mcg Dextrose (Dextrose 50% Inj) 0 ml IV STAT PRN; Protocol PRN Reason: Hypoglycemia Protocol Dextrose (Glutose 15) 0 gm PO ONCE PRN; Protocol PRN Reason: Hypoglycemia Protocol Ferrous Sulfate (Feosol) 325 mg PO Q8 [facility] Last Admin: 09/07/18 17:53 Dose: 325 mg Furosemide (Lasix) 20 mg IVP BID [facility] Last Admin: 09/07/18 17:55 Dose: Not Given Gabapentin (Neurontin) 300 mg PO Q12 [facility] Last Admin: 09/07/18 08:45 Dose: 300 mg Glucagon (Glucagen Diagnostic Kit) 0 mg IM STAT PRN; Protocol PRN Reason: Hypoglycemia Protocol Hydrocortisone (Hydrocortisone 2.5%) 1 applic TOP BID [facility] Last Admin: 09/07/18 17:54 Dose: Not Given Ceftriaxone Sodium 1 gm/ (Sodium Chloride) 100 mls @ 100 mls/hr IVPB DAILY [facility]; Protocol Last Admin: 09/07/18 08:48 Dose: 100 mls/hr Azithromycin 500 mg/ Sodium (Chloride) 250 mls @ 250 mls/hr IVPB DAILY [facility]; Protocol Last Admin: 09/07/18 08:49 Dose: 250 mls/hr Iron Sucrose 200 mg/ Sodium (Chloride) 110 mls @ 110 mls/hr IVPB DAILY [facility] Last Admin: 09/07/18 08:49 Dose: 110 mls/hr Insulin Detemir (Levemir) 34 units SC [facility] Last Admin: 09/06/18 22:07 Dose: 34 units Insulin Human Lispro (Humalog) 15 units SC ACB [facility] Last Admin: 09/07/18 08:47 Dose: Not Given Insulin Human Regular (Humulin R) 0 units SC ACHS [facility]; Protocol Last Admin: 09/07/18 17:54 Dose: 1 u Levothyroxine Sodium (Synthroid) 175 mcg PO DAILY@0630 [facility] Last Admin: 09/07/18 06:34 Dose: 175 mcg Lisinopril (Zestril) 20 mg PO DAILY [facility] Last Admin: 09/07/18 08:45 Dose: 20 mg Magnesium Oxide (Mag-Ox) 400 mg PO DAILY [facility] Last Admin: 09/07/18 08:45 Dose: 400 mg Mirtazapine (Remeron Odt) 30 mg PO [facility] Last Admin: 09/06/18 22:08 Dose: 30 mg Morphine Sulfate (Morphine) 2 mg IVP Q6 PRN PRN Reason: Pain, severe (8-10) Last Admin: 09/07/18 06:40 Dose: 2 mg Ondansetron HCl (Zofran Inj) 4 mg IVP Q4 PRN PRN Reason: Nausea/Vomiting Pantoprazole Sodium (Protonix Ec Tab) 40 mg PO DAILY [facility] Last Admin: 09/07/18 08:46 Dose: 40 mg Pramipexole Dihydrochloride (Mirapex) 0.5 mg PO [facility] Last Admin: 09/06/18 22:08 Dose: 0.5 mg Spironolactone (Aldactone) 50 mg PO DAILY [facility] Last Admin: 09/07/18 08:46 Dose: 50 mg Sucralfate (Carafate Oral Susp) 1 gm PO TID [facility] Last Admin: 09/07/18 17:53 Dose: 1 gm - Labs Labs: 09/07/18 06:00 09/07/18 06:00 PT 15.3 Seconds (9.8-13.1) H 09/07/18 06:00 INR 1.3 09/07/18 06:00 - Head Exam Head Exam: ATRAUMATIC - Eye Exam Eye Exam: Normal appearance - ENT Exam ENT Exam: Normal Exam - Neck Exam Neck Exam: Normal Inspection - Respiratory Exam Respiratory Exam: Clear to Ausculation Bilateral - Cardiovascular Exam Cardiovascular Exam: REGULAR RHYTHM - GI/Abdominal Exam GI & Abdominal Exam: Normal Bowel Sounds. absent: Tenderness Assessment and Plan (1) Anemia Assessment & Plan: Hgb remains stable despite occult blood in Stool yesterday. Cxr improving. Status: Acute
[2018-09-07] MEDS: Mirtazapine 30 MG ODT PO SCH (22:36)
[2018-09-07] MEDS: Insulin Detemir 100 Units/ml Inj SC SCH (22:38)
[2018-09-08 05:59] LABS: EOS # 0.1 K/uL (0.0-0.7); EOS % 4.1 % (0.0-4.0); HEMOGLOBIN 8.3 g/dL (12.0-16.0); LYMPH # 0.6 K/uL (1.0-4.3); LYMPH % 16.9 % (20.0-40.0); MEAN CORPUSCULAR HEMOGLOBIN 29.9 pg (27.0-31.0); MEAN CORPUSCULAR HGB CONC 31.8 g/dL (33.0-37.0); MEAN PLATELET VOLUME 10.6 fl (7.2-11.7); MONO # 0.2 K/uL (0.0-0.8); MONO % 6.7 % (0.0-10.0); NEUT # 2.5 K/uL (1.8-7.0); NEUT % 71.3 % (50.0-75.0); NRBC % 0.2 % (0.0-0.0); RBC 2.79 Mil/uL (3.80-5.20); RED CELL DISTRIBUTION WIDTH 17.4 % (11.5-14.5); WHITE BLOOD COUNT 3.5 K/uL (4.8-10.8)
[2018-09-08] MEDS: Levothyroxine 175 MCG TAB PO SCH (06:11)
[2018-09-08 06:37] LABS: BLOOD UREA NITROGEN 9 mg/dl (7-17); CALCIUM 7.8 mg/dL (8.4-10.2); GFR NON-AFRICAN AMERICAN > 60
[2018-09-08] MEDS: Insulin Regular 100 units/ml SC SCH ×4 (08:17→22:56)
[2018-09-08] MEDS: Pantoprazole 40 mg EC Tab PO SCH (08:57)
[2018-09-08] MEDS: Insulin Lispro (humaLOG) 100 Units/ml Inj SC SCH (08:58)
[2018-09-08] MEDS: Sucralfate 1 gm/10 ml Oral Susp UD PO SCH ×3 (08:58→16:40)
[2018-09-08] MEDS: Magnesium Oxide 400 mg Tab UD PO SCH (08:58)
--- NOTE | 2018-09-08 12:18 | CP.PCM.PCO ---
Assessment & Plan - Assessment and Plan (Free Text) Assessment: pt. seen and examined c/o RUE arm pain, swelling around picc, + c/o dizziness/ weakness + ecchymosis, swelling and tenderness plan for removal of R PICC, and reinsertion of L PICC today ( d/w ) plan for insertion of L picc today, then transfuse 1 unit of prbc pt. wishes to go to TCU for Rehab and will require IV abx Rocephin and Zithromax x 5 days cont. to monitor cbc, bmp - Functional Status Prior to Admission: , Current Status: , Impairment Code: ,
--- NOTE | 2018-09-08 13:00 | PCM.SURG1 ---
Surgeon's Initial Post Op Note - Surgeon's Notes Surgeon: Julius Bundy MD Agricultural Inspector: NONE Type of Anesthesia: Local Pre-Operative Diagnosis: Anemia Operative Findings: US showed a patent left basilic vein Post-Operative Diagnosis: Anemia Operation Performed: Single lumen picc placement left arm, 43 cm. Tip is in the SVC. Specimen/Specimens Removed: none Estimated Blood Loss: EBL {In ML}: 2 Blood Products Given: N/A Drains Used: No Drains Post-Op Condition: Fair Date of Surgery/Procedure: 09/08/18 Time of Surgery/Procedure: 12:50
--- NOTE | 2018-09-08 13:28 | VASCULAR ---
PROCEDURE: Date of procedure: 09/08/2018 Procedure: 1. Placement of a left arm PICC with ultrasound and fluoroscopic guidance, CPT 44901 2. PICC tip confirmation with spot radiograph and is in the superior vena cava Medications: 1 percent lidocaine Total Fluoro time: 7.5 Seconds Radiation: 1.19 MGy EBL: 3 cc HISTORY: Anemia requiring blood transfusion TECHNIQUE: Following informed consent and procedure time-out, the patient placed supine on the interventional table and the left arm prepped and draped in the usual sterile fashion. Ultrasound showed a patent and compressible left basilic vein. After the skin was anesthetized with lidocaine, the basilic vein was accessed with micro micropuncture technique using ultrasound guidance. A guidewire was then advanced under fluoroscopic guidance into the superior vena cava. An image documenting ultrasound guidance for vascular access was permanently saved. The length of a single-lumen 4 Lao PICC was trimmed to 43 cm and advanced through a peel-away sheath. The PICC was position with tip of PICC confirm a spot radiograph the superior vena cava. The PICC was secured to the patient's skin. The PICC was flushed. A biopatch and sterile dressing was applied. IMPRESSION: Placement of a single-lumen 4 Lao PICC left basilic vein trimmed to 43 cm. The tip of the PICC is confirmed with spot radiograph and is in the superior vena cava.
--- NOTE | 2018-09-08 14:19 | US ---
Date of service: 09/08/2018 PROCEDURE: Right Upper Extremity Venous Doppler HISTORY: pain, swelling, picc line COMPARISON: None available. TECHNIQUE: Right upper extremity deep veins, including the lower internal jugular, subclavian, axillary and brachial veins, were evaluated flow, compressibility and respiratory phasicity. FINDINGS: Right basilic and axillary veins are noncompressible, exhibit no spontaneous color Doppler blood flow and contain echogenic material in the lumen suggestive of occlusive thrombosis. Trace flow is detectable on spectral analysis of the basilic vein on a minimal basis and not the axillary vein. However, there is good color Doppler blood flow spontaneously identified as well as compressibility and augmentation at the right subclavian and brachial veins with the cephalic vein patent and unremarkable as well. The right internal jugular vein is unremarkable. 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
[2018-09-08] MEDS: Azithromycin 500 MG in Sodium Chloride 0.9% 250 ML IVPB SCH (16:45)
[2018-09-08] MEDS: Mirtazapine 30 MG ODT PO SCH (22:52)
[2018-09-08] MEDS: Insulin Detemir 100 Units/ml Inj SC SCH (22:53)
[2018-09-09 00:21] VITALS: RESP 18
--- NOTE | 2018-09-09 01:21 | CP.PCM.PN ---
Subjective - Date & Time of Evaluation Date of Evaluation: 09/07/18 Time of Evaluation: 11:00 - Subjective Subjective: No complaints. Objective - Vital Signs/Intake and Output Vital Signs (last 24 hours): Temp Pulse Resp BP Pulse Ox 98.3 F 83 18 101/64 99 09/09/18 00:20 09/09/18 00:20 09/09/18 00:20 09/09/18 00:20 09/09/18 00:20 Intake and Output: 09/08/18 09/09/18 18:59 06:59 Intake Total 355 Balance 355 - Medications Medications: Current Medications Ascorbic Acid (Vitamin C 500 Mg Tab) 500 mg PO DAILY [facility] Last Admin: 09/08/18 08:58 Dose: 500 mg Atorvastatin Calcium (Lipitor) 20 mg PO HS [facility] Last Admin: 09/08/18 21:50 Dose: 20 mg Cyanocobalamin (Vitamin B12 1000 Mcg Tab) 1,000 mcg PO DAILY [facility] Last Admin: 09/08/18 09:15 Dose: 1,000 mcg Dextrose (Dextrose 50% Inj) 0 ml IV STAT PRN; Protocol PRN Reason: Hypoglycemia Protocol Dextrose (Glutose 15) 0 gm PO ONCE PRN; Protocol PRN Reason: Hypoglycemia Protocol Ferrous Sulfate (Feosol) 325 mg PO Q8 [facility] Last Admin: 09/09/18 00:19 Dose: 325 mg Furosemide (Lasix) 20 mg IVP BID [facility] Last Admin: 09/08/18 16:43 Dose: 20 mg Gabapentin (Neurontin) 300 mg PO Q12 [facility] Last Admin: 09/08/18 21:48 Dose: 300 mg Glucagon (Glucagen Diagnostic Kit) 0 mg IM STAT PRN; Protocol PRN Reason: Hypoglycemia Protocol Hydrocortisone (Hydrocortisone 2.5%) 1 applic TOP BID [facility] Last Admin: 09/08/18 16:41 Dose: 1 applic Ceftriaxone Sodium 1 gm/ (Sodium Chloride) 100 mls @ 100 mls/hr IVPB DAILY [facility]; Protocol Last Admin: 09/08/18 15:15 Dose: 100 mls/hr Azithromycin 500 mg/ Sodium (Chloride) 250 mls @ 250 mls/hr IVPB DAILY [facility]; Protocol Last Admin: 09/08/18 16:45 Dose: 250 mls/hr Iron Sucrose 200 mg/ Sodium (Chloride) 110 mls @ 110 mls/hr IVPB DAILY [facility] Last Admin: 09/08/18 14:00 Dose: 110 mls/hr Insulin Detemir (Levemir) 34 units SC HS [facility] Last Admin: 09/08/18 22:53 Dose: 34 units Insulin Human Lispro (Humalog) 15 units SC ACB [facility] Last Admin: 09/08/18 08:58 Dose: 15 unit Insulin Human Regular (Humulin R) 0 units SC ACHS [facility]; Protocol Last Admin: 09/08/18 22:56 Dose: 1 u Levothyroxine Sodium (Synthroid) 175 mcg PO DAILY@0630 [facility] Last Admin: 09/08/18 06:11 Dose: 175 mcg Lisinopril (Zestril) 20 mg PO DAILY [facility] Last Admin: 09/08/18 08:58 Dose: 20 mg Magnesium Oxide (Mag-Ox) 400 mg PO DAILY [facility] Last Admin: 09/08/18 08:58 Dose: 400 mg Mirtazapine (Remeron Odt) 30 mg PO [facility] Last Admin: 09/08/18 22:52 Dose: 30 mg Morphine Sulfate (Morphine) 2 mg IVP Q6 PRN PRN Reason: Pain, severe (8-10) Last Admin: 09/07/18 06:40 Dose: 2 mg Ondansetron HCl (Zofran Inj) 4 mg IVP Q4 PRN PRN Reason: Nausea/Vomiting Pantoprazole Sodium (Protonix Ec Tab) 40 mg PO DAILY [facility] Last Admin: 09/08/18 08:57 Dose: 40 mg Pramipexole Dihydrochloride (Mirapex) 0.5 mg PO [facility] Last Admin: 09/08/18 21:47 Dose: 0.5 mg Spironolactone (Aldactone) 50 mg PO DAILY [facility] Last Admin: 09/08/18 08:58 Dose: 50 mg Sucralfate (Carafate Oral Susp) 1 gm PO TID [facility] Last Admin: 09/08/18 16:40 Dose: 1 gm - Labs Labs: 09/08/18 04:25 09/08/18 04:25 PT 15.3 Seconds (9.8-13.1) H 09/07/18 06:00 INR 1.3 09/07/18 06:00 - Head Exam Head Exam: ATRAUMATIC - Eye Exam Eye Exam: Normal appearance - ENT Exam ENT Exam: Mucous Membranes Dry - Respiratory Exam Respiratory Exam: NORMAL BREATHING PATTERN - GI/Abdominal Exam GI & Abdominal Exam: Normal Bowel Sounds Assessment and Plan (1) Pancytopenia Assessment & Plan: liver cirrhosis, splenic sequestration FOBT negative s/p PRBC transfusion outpatient capsule endoscopy as pt reports this was approved by her insurance company if pt not felt to have GI bloodloss, will plan for outpatient bone marrow biopsy on IV iron Status: Acute
--- NOTE | 2018-09-09 01:21 | CP.PCM.PN ---
Subjective - Date & Time of Evaluation Date of Evaluation: 09/08/18 Time of Evaluation: 14:00 - Subjective Subjective: Feels tired. Objective - Vital Signs/Intake and Output Vital Signs (last 24 hours): Temp Pulse Resp BP Pulse Ox 98.3 F 83 18 101/64 99 09/09/18 00:20 09/09/18 00:20 09/09/18 00:20 09/09/18 00:20 09/09/18 00:20 Intake and Output: 09/08/18 09/09/18 18:59 06:59 Intake Total 355 Balance 355 - Medications Medications: Current Medications Ascorbic Acid (Vitamin C 500 Mg Tab) 500 mg PO DAILY [facility] Last Admin: 09/08/18 08:58 Dose: 500 mg Atorvastatin Calcium (Lipitor) 20 mg PO HS [facility] Last Admin: 09/08/18 21:50 Dose: 20 mg Cyanocobalamin (Vitamin B12 1000 Mcg Tab) 1,000 mcg PO DAILY [facility] Last Admin: 09/08/18 09:15 Dose: 1,000 mcg Dextrose (Dextrose 50% Inj) 0 ml IV STAT PRN; Protocol PRN Reason: Hypoglycemia Protocol Dextrose (Glutose 15) 0 gm PO ONCE PRN; Protocol PRN Reason: Hypoglycemia Protocol Ferrous Sulfate (Feosol) 325 mg PO Q8 [facility] Last Admin: 09/09/18 00:19 Dose: 325 mg Furosemide (Lasix) 20 mg IVP BID [facility] Last Admin: 09/08/18 16:43 Dose: 20 mg Gabapentin (Neurontin) 300 mg PO Q12 [facility] Last Admin: 09/08/18 21:48 Dose: 300 mg Glucagon (Glucagen Diagnostic Kit) 0 mg IM STAT PRN; Protocol PRN Reason: Hypoglycemia Protocol Hydrocortisone (Hydrocortisone 2.5%) 1 applic TOP BID [facility] Last Admin: 09/08/18 16:41 Dose: 1 applic Ceftriaxone Sodium 1 gm/ (Sodium Chloride) 100 mls @ 100 mls/hr IVPB DAILY [facility]; Protocol Last Admin: 09/08/18 15:15 Dose: 100 mls/hr Azithromycin 500 mg/ Sodium (Chloride) 250 mls @ 250 mls/hr IVPB DAILY [facility]; Protocol Last Admin: 09/08/18 16:45 Dose: 250 mls/hr Iron Sucrose 200 mg/ Sodium (Chloride) 110 mls @ 110 mls/hr IVPB DAILY [facility] Last Admin: 09/08/18 14:00 Dose: 110 mls/hr Insulin Detemir (Levemir) 34 units SC HS [facility] Last Admin: 09/08/18 22:53 Dose: 34 units Insulin Human Lispro (Humalog) 15 units SC ACB [facility] Last Admin: 09/08/18 08:58 Dose: 15 unit Insulin Human Regular (Humulin R) 0 units SC ACHS [facility]; Protocol Last Admin: 09/08/18 22:56 Dose: 1 u Levothyroxine Sodium (Synthroid) 175 mcg PO DAILY@0630 [facility] Last Admin: 09/08/18 06:11 Dose: 175 mcg Lisinopril (Zestril) 20 mg PO DAILY [facility] Last Admin: 09/08/18 08:58 Dose: 20 mg Magnesium Oxide (Mag-Ox) 400 mg PO DAILY [facility] Last Admin: 09/08/18 08:58 Dose: 400 mg Mirtazapine (Remeron Odt) 30 mg PO HS [facility] Last Admin: 09/08/18 22:52 Dose: 30 mg Morphine Sulfate (Morphine) 2 mg IVP Q6 PRN PRN Reason: Pain, severe (8-10) Last Admin: 09/07/18 06:40 Dose: 2 mg Ondansetron HCl (Zofran Inj) 4 mg IVP Q4 PRN PRN Reason: Nausea/Vomiting Pantoprazole Sodium (Protonix Ec Tab) 40 mg PO DAILY [facility] Last Admin: 09/08/18 08:57 Dose: 40 mg Pramipexole Dihydrochloride (Mirapex) 0.5 mg PO HS [facility] Last Admin: 09/08/18 21:47 Dose: 0.5 mg Spironolactone (Aldactone) 50 mg PO DAILY [facility] Last Admin: 09/08/18 08:58 Dose: 50 mg Sucralfate (Carafate Oral Susp) 1 gm PO TID [facility] Last Admin: 09/08/18 16:40 Dose: 1 gm - Labs Labs: 09/08/18 04:25 09/08/18 04:25 PT 15.3 Seconds (9.8-13.1) H 09/07/18 06:00 INR 1.3 09/07/18 06:00 - Head Exam Head Exam: ATRAUMATIC - Eye Exam Eye Exam: Normal appearance - ENT Exam ENT Exam: Mucous Membranes Dry - Respiratory Exam Respiratory Exam: NORMAL BREATHING PATTERN - Cardiovascular Exam Cardiovascular Exam: +S1, +S2 - GI/Abdominal Exam GI & Abdominal Exam: Normal Bowel Sounds Assessment and Plan (1) Pancytopenia Assessment & Plan: liver cirrhosis, splenic sequestration FOBT negative s/p PRBC transfusion outpatient capsule endoscopy as pt reports this was approved by her insurance company if pt not felt to have GI bloodloss, will plan for outpatient bone marrow biopsy on IV iron Status: Acute
[2018-09-09] MEDS: Levothyroxine 175 MCG TAB PO SCH (06:15)
[2018-09-09] MEDS: Insulin Regular 100 units/ml SC SCH ×2 (06:48→12:14)
[2018-09-09 07:03] LABS: HEMOGLOBIN 8.7 g/dL (12.0-16.0); MEAN CELL VOLUME 94.4 fl (81.0-99.0); MEAN CORPUSCULAR HEMOGLOBIN 30.1 pg (27.0-31.0); MEAN CORPUSCULAR HGB CONC 31.8 g/dL (33.0-37.0); RBC 2.88 Mil/uL (3.80-5.20); RED CELL DISTRIBUTION WIDTH 17.7 % (11.5-14.5); WHITE BLOOD COUNT 3.8 K/uL (4.8-10.8)
[2018-09-09 08:15] VITALS: O2SAT 98
[2018-09-09] MEDS: Magnesium Oxide 400 mg Tab UD PO SCH (09:20)
[2018-09-09] MEDS: Sucralfate 1 gm/10 ml Oral Susp UD PO SCH (09:20)
[2018-09-09] MEDS: Pantoprazole 40 mg EC Tab PO SCH (09:20)
[2018-09-09] MEDS: Insulin Lispro (humaLOG) 100 Units/ml Inj SC SCH (09:22)
[2018-09-09 11:52] VITALS: BP 109/67; PULSE 85; TEMP 98.4
== END 2018-09-09 13:21 | DRG 808 ==
LOC: H.ER 23:07 → H.ERHOLD 09-04 04:24 → H.TEL 09-04 05:53
PROVIDERS: ADMIT Family Medicine; ATTEND Family Medicine
PROC: 30233N1 Transfusion of Nonautologous Red Blood Cells into Peripheral Vein, Percutaneous Approach (ICD-10-PCS; principal; 2018-09-04)
PROC: 05HY33Z Insertion of Infusion Device into Upper Vein, Percutaneous Approach (ICD-10-PCS; 2018-09-04)
PROC: 05PYX3Z Removal of Infusion Device from Upper Vein, External Approach (ICD-10-PCS; 2018-09-08)
PROC: 02HV33Z Insertion of Infusion Device into Superior Vena Cava, Percutaneous Approach (ICD-10-PCS; 2018-09-08)
DX: D61.818 Other pancytopenia (principal); J18.9 Pneumonia, unspecified organism; K62.5 Hemorrhage of anus and rectum; K76.6 Portal hypertension; R18.8 Other ascites; J44.0 Chronic obstructive pulmonary disease with (acute) lower respiratory infection; D50.9 Iron deficiency anemia, unspecified; K74.60 Unspecified cirrhosis of liver; E11.9 Type 2 diabetes mellitus without complications; Z85.038 Personal history of other malignant neoplasm of large intestine; R16.1 Splenomegaly, not elsewhere classified; M06.9 Rheumatoid arthritis, unspecified; Z79.890 Hormone replacement therapy; E78.00 Pure hypercholesterolemia, unspecified; E78.5 Hyperlipidemia, unspecified; E03.9 Hypothyroidism, unspecified; I10 Essential (primary) hypertension; F32.9 Major depressive disorder, single episode, unspecified; F41.9 Anxiety disorder, unspecified; K29.70 Gastritis, unspecified, without bleeding; Z79.4 Long term (current) use of insulin

== ENCOUNTER 2018-09-09 13:03 | Inpatient (IN) | payer MEDICARE, MEDICAID ==
[2018-09-09 13:33] VITALS: BMI 38.1
[2018-09-09] MEDS ORDERED: Dextrose 50% SYRINGE Inj (50 ml) IVP PRN (14:00)
[2018-09-09] MEDS ORDERED: Glucagon Recombinant 1 mg Inj IM PRN ×2 (14:01)
[2018-09-09] MEDS ORDERED: Dextrose 50% SYRINGE Inj (50 ml) IV PRN (14:01)
[2018-09-09] MEDS: Azithromycin 500 MG in Sodium Chloride 0.9% 250 ML IVPB SCH (15:55)
[2018-09-09] MEDS: Sucralfate 1 gm/10 ml Oral Susp UD PO SCH (16:28)
[2018-09-09] MEDS: Insulin Regular 100 units/ml SC SCH ×2 (17:26→23:39)
[2018-09-09 17:42] VITALS: RESP 20
--- NOTE | 2018-09-09 20:31 | CP.PCM.CON ---
History of Present Illness - History of Present Illness History of Present Illness: 63 year old female with a history of DM, HTN, HL, hypothyroid, colon cancer s/p surgery and adjuvant chemotherapy in 2005, recent symptomatic iron deficiency anemia s/p PRBC, pancytopenia, transferred to TCU for rehab. The patient is known to me from her prior hospitalization. At the time she was GI bleeding and found to have iron deficiency anemia. She was treated with PRBC transfusion and IV iron. She notes to experiencing intermittent bloody bowel movement mixed with dark black stools. She has had multiple endoscopies and notes to recent approval by insurance for capsule endoscopy. Past medical history: DM, HTN, HL, hypothyroid, colon cancer s/p surgery and adjuvant chemotherapy in 2005. Past surgical history: hemicolectomy, cholecystectomy, hernia repair Family history: Denies hematologic and oncologic problems Social history: Denies tobacco, alcohol, and illicit drug use. Allergies: NKA Review of systems: All remaining review of systems including HEENT, cardiovascular, respiratory, gastrointestinal, genitourinary, musculoskeletal, dermatologic, neurologic, and psychiatric are negative unless mentioned in the HPI Past Patient History - Past Medical History & Family History Past Medical History?: Yes - Past Social History Smoking Status: Never Smoked - CARDIAC Hx Cardiac Disorders: (CP) Hx Hypercholesterolemia: Yes Hx Hypertension: Yes - PULMONARY Hx Chronic Obstructive Pulmonary Disease (COPD): Yes (asthma) - NEUROLOGICAL Hx Seizures: No - HEENT Hx HEENT Problems: Yes Hx Cataracts: Yes (right eye) Hx Glaucoma: Yes (left eye) - RENAL Hx Chronic Kidney Disease: No - ENDOCRINE/METABOLIC Hx Diabetes Mellitus Type 2: Yes Hx Hypothyroidism: Yes - HEMATOLOGICAL/ONCOLOGICAL Hx Anemia: Yes Hx Human Immunodeficiency Virus (HIV): No - INTEGUMENTARY Hx Dermatological Problems: Yes Other/Comment: Right shine ulcer - MUSCULOSKELETAL/RHEUMATOLOGICAL Hx Arthritis: Yes Hx Falls: Yes Hx Rheumatoid Arthritis: Yes - GASTROINTESTINAL Hx Gastritis: Yes - GENITOURINARY/GYNECOLOGICAL Hx Sexually Transmitted Disorders: No - PSYCHIATRIC Hx Anxiety: Yes Hx Depression: Yes Hx Substance Use: No - SURGICAL HISTORY Hx Appendectomy: Yes Hx Cholecystectomy: Yes - ANESTHESIA Hx Anesthesia: Yes Hx Anesthesia Reactions: No Hx Malignant Hyperthermia: No Meds Allergies/Adverse Reactions: Allergies Allergy/AdvReac Type Severity Reaction Status Date / Time No Known Allergies Allergy Verified 09/09/18 13:33 - Medications Medications: Current Medications Acetaminophen (Tylenol 325mg Tab) 650 mg PO Q6 PRN PRN Reason: Pain, Mild (1-3) Ascorbic Acid (Vitamin C 500 Mg Tab) 1 mg PO DAILY [facility] Atorvastatin Calcium (Lipitor) 20 mg PO HS [facility] Cyanocobalamin (Vitamin B12 1000 Mcg Tab) 1,000 mcg PO DAILY [facility] Dextrose (Dextrose 50% Inj) 0 ml IV STAT PRN; Protocol PRN Reason: Hypoglycemia Protocol Dextrose (Glutose 15) 15 gm PO PRN PRN PRN Reason: Hypoglycemia Dextrose (Glutose 15) 0 gm PO ONCE PRN; Protocol PRN Reason: Hypoglycemia Protocol Ferrous Sulfate (Feosol) 325 mg PO Q8 [facility] Last Admin: 09/09/18 17:26 Dose: 325 mg Furosemide (Lasix) 20 mg IVP BID [facility] Last Admin: 09/09/18 17:26 Dose: 20 mg Gabapentin (Neurontin) 300 mg PO Q12 [facility] Glucagon (Glucagen Diagnostic Kit) 0 mg IM STAT PRN; Protocol PRN Reason: Hypoglycemia Protocol Hydrocortisone (Hydrocortisone 2.5%) 1 applic TOP BID [facility] Last Admin: 09/09/18 16:28 Dose: 1 applic Ceftriaxone Sodium 1 gm/ (Sodium Chloride) 100 mls @ 100 mls/hr IVPB DAILY@1700 [facility]; Protocol Last Admin: 09/09/18 16:25 Dose: Not Given Iron Sucrose 200 mg/ Sodium (Chloride) 110 mls @ 110 mls/hr IVPB DAILY [facility] Azithromycin 500 mg/ Sodium (Chloride) 250 mls @ 250 mls/hr IVPB DAILY [facility] Last Admin: 09/09/18 15:55 Dose: 250 mls/hr Insulin Detemir (Levemir) 34 units SC HS [facility] Insulin Human Lispro (Humalog) 15 units SC ACB [facility] Insulin Human Regular (Humulin R) 0 units SC ACHS [facility]; Protocol Last Admin: 09/09/18 17:26 Dose: 1 unit Levothyroxine Sodium (Synthroid) 175 mcg PO DAILY@0630 [facility] Lisinopril (Zestril) 20 mg PO DAILY [facility] Magnesium Oxide (Mag-Ox) 400 mg PO DAILY [facility] Mirtazapine (Remeron Odt) 30 mg PO HS [facility] Ondansetron HCl (Zofran Inj) 4 mg IVP Q4 PRN PRN Reason: Nausea/Vomiting Pantoprazole Sodium (Protonix Ec Tab) 40 mg PO DAILY [facility] Pramipexole Dihydrochloride (Mirapex) 0.5 mg PO HS [facility] Spironolactone (Aldactone) 50 mg PO DAILY [facility] Sucralfate (Carafate Oral Susp) 1 gm PO TID [facility] Last Admin: 09/09/18 16:28 Dose: 1 gm Physical Exam - Head Exam Head Exam: ATRAUMATIC - Eye Exam Eye Exam: Normal appearance - ENT Exam ENT Exam: Mucous Membranes Dry - Respiratory Exam Respiratory Exam: NORMAL BREATHING PATTERN - Cardiovascular Exam Cardiovascular Exam: +S1, +S2 - GI/Abdominal Exam GI & Abdominal Exam: Normal Bowel Sounds - Extremities Exam Extremities exam: Positive for: pedal edema - Neurological Exam Neurological exam: Oriented x3 - Psychiatric Exam Psychiatric exam: Normal Affect, Normal Mood - Skin Skin Exam: Warm Results - Vital Signs Recent Vital Signs: Last Vital Signs Temp 98.7 F 09/09/18 17:41 Pulse 71 09/09/18 17:41 Resp 20 09/09/18 17:41 BP 156/70 H 09/09/18 17:41 Pulse Ox 97 09/09/18 17:41 - Labs Labs: Laboratory Results - last 24 hr 09/09/18 09/09/18 16:33 20:17 POC Glucose (mg/dL) 165 H 287 H Assessment & Plan (1) Pancytopenia Assessment and Plan: liver cirrhosis with splenomegaly splenic sequestration prior iron deficiency; on IV iron will consider bone marrow evaluation as outpatient depending on capsule endoscopy Thank you for this interesting consult. Status: Acute
[2018-09-09] MEDS: Mirtazapine 30 MG ODT PO SCH (21:50)
[2018-09-09] MEDS: Insulin Detemir 100 Units/ml Inj SC SCH (21:50)
[2018-09-10 05:55] LABS: HEMOGLOBIN 8.5 g/dL (12.0-16.0); MEAN CELL VOLUME 95.7 fl (81.0-99.0); MEAN CORPUSCULAR HEMOGLOBIN 29.8 pg (27.0-31.0); MEAN CORPUSCULAR HGB CONC 31.2 g/dL (33.0-37.0); RBC 2.84 Mil/uL (3.80-5.20); RED CELL DISTRIBUTION WIDTH 17.9 % (11.5-14.5); WHITE BLOOD COUNT 3.2 K/uL (4.8-10.8)
[2018-09-10 06:33] LABS: ALB/GLOB RATIO 0.7 (1.0-2.1); ALBUMIN 2.2 g/dL (3.5-5.0); ALT/SGPT 14 U/L (9-52); AST/SGOT 34 U/L (14-36); BLOOD UREA NITROGEN 11 mg/dl (7-17); GFR NON-AFRICAN AMERICAN > 60
[2018-09-10] MEDS: Levothyroxine 175 MCG TAB PO SCH (06:52)
[2018-09-10] MEDS: Insulin Regular 100 units/ml SC SCH ×4 (08:00→23:32)
[2018-09-10] MEDS ORDERED: cefTRIAXone IV 1 gm in Dextros 50 ML BAG IVPB SCH (09:00)
[2018-09-10] MEDS: Azithromycin 500 MG in Sodium Chloride 0.9% 250 ML IVPB SCH (09:00)
[2018-09-10] MEDS: Magnesium Oxide 400 mg Tab UD PO SCH (09:15)
[2018-09-10] MEDS: Insulin Lispro (humaLOG) 100 Units/ml Inj SC SCH (09:16)
[2018-09-10] MEDS: Sucralfate 1 gm/10 ml Oral Susp UD PO SCH ×3 (09:16→16:37)
[2018-09-10] MEDS: Pantoprazole 40 mg EC Tab PO SCH (09:17)
[2018-09-10] MEDS: Lidocaine 5% Patch TD SCH (12:23)
--- NOTE | 2018-09-10 17:35 | CP.PCM.PN ---
Subjective - Date & Time of Evaluation Date of Evaluation: 09/10/18 Time of Evaluation: 11:00 - Subjective Subjective: patient seen and examined at bedside. Interim events noted complaints of right upper ext pain where PICC was removed. denies cp/sob/fever/chills. available diagnostic data reviewed Review of Systems All systems: reviewed and no additional remarkable complaints except mentioned above Objective Vital Signs Stable - Constitutional Appears: Non-toxic, No Acute Distress Head Exam: NORMAL INSPECTION Eye Exam: Normal appearance Respiratory Exam: NORMAL BREATHING PATTERN Cardiovascular Exam: +S1, +S2 GI & Abdominal Exam: Soft Neurological Exam: Alert, Awake Psychiatric exam: Normal Affect, Normal Mood Skin Exam: Normal Color, Warm, bruising of right upper ext Assessment and Plan monitor vitals Cont meds Cont tx cont therapy consultants appreciated input ice/lidocaine patch foraffected area rest of plan as ordered Objective - Vital Signs/Intake and Output Vital Signs (last 24 hours): Temp Pulse Resp BP Pulse Ox 98.3 F 84 20 118/72 100 09/10/18 08:23 09/10/18 09:00 09/10/18 08:23 09/10/18 09:49 09/10/18 09:49 - Medications Medications: Current Medications Acetaminophen (Tylenol 325mg Tab) 650 mg PO Q6 PRN PRN Reason: Pain, Mild (1-3) Ascorbic Acid (Vitamin C 500 Mg Tab) 500 mg PO DAILY [facility] Last Admin: 09/10/18 09:15 Dose: 500 mg Atorvastatin Calcium (Lipitor) 20 mg PO HS [facility] Last Admin: 09/09/18 21:50 Dose: 20 mg Cyanocobalamin (Vitamin B12 1000 Mcg Tab) 1,000 mcg PO DAILY [facility] Last Admin: 09/10/18 09:15 Dose: 1,000 mcg Dextrose (Dextrose 50% Inj) 0 ml IV STAT PRN; Protocol PRN Reason: Hypoglycemia Protocol Dextrose (Glutose 15) 15 gm PO PRN PRN PRN Reason: Hypoglycemia Dextrose (Glutose 15) 0 gm PO ONCE PRN; Protocol PRN Reason: Hypoglycemia Protocol Ferrous Sulfate (Feosol) 325 mg PO Q8 [facility] Last Admin: 09/10/18 16:37 Dose: 325 mg Furosemide (Lasix) 20 mg IVP BID [facility] Last Admin: 09/10/18 09:18 Dose: 20 mg Gabapentin (Neurontin) 300 mg PO Q12 [facility] Last Admin: 09/10/18 09:15 Dose: 300 mg Glucagon (Glucagen Diagnostic Kit) 0 mg IM STAT PRN; Protocol PRN Reason: Hypoglycemia Protocol Hydrocortisone (Hydrocortisone 2.5%) 1 applic TOP BID [facility] Last Admin: 09/10/18 16:38 Dose: 1 applic Ceftriaxone Sodium 1 gm/ (Sodium Chloride) 100 mls @ 100 mls/hr IVPB DAILY@1700 [facility]; Protocol Last Admin: 09/10/18 16:40 Dose: 100 mls/hr Iron Sucrose 200 mg/ Sodium (Chloride) 110 mls @ 110 mls/hr IVPB DAILY [facility] Last Admin: 09/10/18 09:28 Dose: 110 mls/hr Azithromycin 500 mg/ Sodium (Chloride) 250 mls @ 250 mls/hr IVPB DAILY [facility] Last Admin: 09/10/18 09:00 Dose: 250 mls/hr Insulin Detemir (Levemir) 34 units SC HS [facility] Last Admin: 09/09/18 21:50 Dose: 34 units Insulin Human Lispro (Humalog) 15 units SC ACB [facility] Last Admin: 09/10/18 09:16 Dose: 15 units Insulin Human Regular (Humulin R) 0 units SC ACHS [facility]; Protocol Last Admin: 09/10/18 12:19 Dose: 2 unit Levothyroxine Sodium (Synthroid) 175 mcg PO DAILY@0630 [facility] Last Admin: 09/10/18 06:52 Dose: 175 mcg Lidocaine (Lidoderm) 1 ea TD DAILY [facility] Last Admin: 09/10/18 12:23 Dose: 1 ea Lisinopril (Zestril) 20 mg PO DAILY [facility] Last Admin: 09/10/18 09:00 Dose: 20 mg Magnesium Oxide (Mag-Ox) 400 mg PO DAILY [facility] Last Admin: 09/10/18 09:15 Dose: 400 mg Mirtazapine (Remeron Odt) 30 mg PO HS [facility] Last Admin: 09/09/18 21:50 Dose: 30 mg Ondansetron HCl (Zofran Inj) 4 mg IVP Q4 PRN PRN Reason: Nausea/Vomiting Pantoprazole Sodium (Protonix Ec Tab) 40 mg PO DAILY [facility] Last Admin: 09/10/18 09:17 Dose: 40 mg Pramipexole Dihydrochloride (Mirapex) 0.5 mg PO HS [facility] Last Admin: 09/09/18 21:49 Dose: 0.5 mg Spironolactone (Aldactone) 50 mg PO DAILY [facility] Last Admin: 09/10/18 09:15 Dose: 50 mg Sucralfate (Carafate Oral Susp) 1 gm PO TID [facility] Last Admin: 09/10/18 16:37 Dose: 1 gm - Labs Labs: 09/10/18 05:46 09/10/18 05:46 Assessment and Plan (1) Anemia Status: Acute (2) Pneumonia Status: Acute
[2018-09-10] MEDS: Insulin Detemir 100 Units/ml Inj SC SCH (23:34)
[2018-09-10] MEDS: Mirtazapine 30 MG ODT PO SCH (23:38)
--- NOTE | 2018-09-11 01:14 | CP.PCM.HP ---
History of Present Illness - History of Present Illness History of Present Illness: CC: Sudden drop in Hgb and abdominal distension. HPI: Loan Orozco is a 63 y/o female with a PMH of anemia, DM, and asthma; she was recently admitted to the telemetry floor at [facility] for Anemia. While there, she received multiple units of PRBC. She is currently being admitted to TCU. PMH: Anemia, Anxiety, Arthritis, Asthma, Colon CA, COPD, Depression, Diabetes, Gastritis, HTN, hypercholesterolemia, hyperlipidemia, hypothyroidism, peripheral edema, rheumatoid arthritis. PSH: Appendectomy, Cholecystectomy, Hernia Repair. Family History: HTN Social history: Non-smoker. Allergies: NKDA. Subjective Review of Systems: Reviewed and no additional remarkable complaints except occasional abdominal pain and weakness. Objective Vital Signs Stable Appears: Non-toxic, No Acute Distress. Head Exam: NORMAL INSPECTION, normocephalic. Eye Exam: Normal appearance, EOMI, PERRLA. Respiratory Exam: NORMAL BREATHING PATTERN, breath sounds clear to auscultation. Cardiovascular Exam: +S1, +S2. RRR GI & Abdominal Exam: Soft, round, non-tender, non-distended. Neurological Exam: Alert, Awake, Oriented x3. Psychiatric exam: Normal Affect, Normal Mood Skin Exam: Mild pallor, Warm, Dry. Assessment/Impression/Plan: 1.) Anemia -Hgb currently stable. -Consults input appreciated. -Serial CBC's to monitor hgb/hct. -Pain control for previous PICC site; avoid NSAIDS due to thrombocytopenia. -Continue current treatment. Present on Admission - Present on Admission Any Indicators Present on Admission: No Past Patient History - Past Medical History & Family History Past Medical History?: Yes - Past Social History Smoking Status: Never Smoked - CARDIAC Hx Cardiac Disorders: (CP) Hx Hypercholesterolemia: Yes Hx Hypertension: Yes - PULMONARY Hx Chronic Obstructive Pulmonary Disease (COPD): Yes (asthma) - NEUROLOGICAL Hx Seizures: No - HEENT Hx HEENT Problems: Yes Hx Cataracts: Yes (right eye) Hx Glaucoma: Yes (left eye) - RENAL Hx Chronic Kidney Disease: No - ENDOCRINE/METABOLIC Hx Diabetes Mellitus Type 2: Yes Hx Hypothyroidism: Yes - HEMATOLOGICAL/ONCOLOGICAL Hx Anemia: Yes Hx Human Immunodeficiency Virus (HIV): No - INTEGUMENTARY Hx Dermatological Problems: Yes Other/Comment: Right shine ulcer - MUSCULOSKELETAL/RHEUMATOLOGICAL Hx Arthritis: Yes Hx Falls: Yes Hx Rheumatoid Arthritis: Yes - GASTROINTESTINAL Hx Gastritis: Yes - GENITOURINARY/GYNECOLOGICAL Hx Sexually Transmitted Disorders: No - PSYCHIATRIC Hx Anxiety: Yes Hx Depression: Yes Hx Substance Use: No - SURGICAL HISTORY Hx Appendectomy: Yes Hx Cholecystectomy: Yes - ANESTHESIA Hx Anesthesia: Yes Hx Anesthesia Reactions: No Hx Malignant Hyperthermia: No Meds Allergies/Adverse Reactions: Allergies Allergy/AdvReac Type Severity Reaction Status Date / Time No Known Allergies Allergy Verified 09/09/18 13:33 Results - Vital Signs Recent Vital Signs: Last Vital Signs Temp 98.6 F 09/10/18 21:49 Pulse 83 09/10/18 21:49 Resp 20 09/10/18 21:49 BP 116/55 L 09/10/18 21:49 Pulse Ox 100 09/10/18 21:49 - Labs Result Diagrams: 09/10/18 05:46 09/10/18 05:46 Labs: Laboratory Results - last 24 hr 09/10/18 09/10/18 09/10/18 05:46 05:46 06:11 WBC 3.2 L RBC 2.84 L Hgb 8.5 L Hct 27.2 L MCV 95.7 MCH 29.8 MCHC 31.2 L RDW 17.9 H Plt Count 78 L Sodium 140 Potassium 3.8 Chloride 110 H Carbon Dioxide 26 Anion Gap 8 L BUN 11 Creatinine 0.7 Est GFR ( Amer) > 60 Est GFR (Non-Af Amer) > 60 POC Glucose (mg/dL) 180 H Random Glucose 179 H Calcium 8.0 L Total Bilirubin 0.7 AST 34 ALT 14 Alkaline Phosphatase 75 Total Protein 5.5 L Albumin 2.2 L Globulin 3.3 Albumin/Globulin Ratio 0.7 L 09/10/18 10:39 WBC RBC Hgb Hct MCV MCH MCHC RDW Plt Count Sodium Potassium Chloride Carbon Dioxide Anion Gap BUN Creatinine Est GFR ( Amer) Est GFR (Non-Af Amer) POC Glucose (mg/dL) 215 H Random Glucose Calcium Total Bilirubin AST ALT Alkaline Phosphatase Total Protein Albumin Globulin Albumin/Globulin Ratio Assessment & Plan (1) Anemia Status: Acute
[2018-09-11] MEDS: Insulin Regular 100 units/ml SC SCH ×4 (06:48→22:10)
[2018-09-11] MEDS: Levothyroxine 175 MCG TAB PO SCH (06:49)
[2018-09-11 06:50] LABS: HEMOGLOBIN 8.4 g/dL (12.0-16.0); MEAN CELL VOLUME 94.9 fl (81.0-99.0); MEAN CORPUSCULAR HEMOGLOBIN 30.5 pg (27.0-31.0); MEAN CORPUSCULAR HGB CONC 32.1 g/dL (33.0-37.0); RBC 2.75 Mil/uL (3.80-5.20); RED CELL DISTRIBUTION WIDTH 17.3 % (11.5-14.5); WHITE BLOOD COUNT 2.6 K/uL (4.8-10.8)
[2018-09-11 06:58] LABS: ALB/GLOB RATIO 0.7 (1.0-2.1); ALBUMIN 2.2 g/dL (3.5-5.0); ALT/SGPT 20 U/L (9-52); AST/SGOT 35 U/L (14-36); BLOOD UREA NITROGEN 13 mg/dl (7-17); CALCIUM 8.2 mg/dL (8.4-10.2); GFR NON-AFRICAN AMERICAN > 60
[2018-09-11] MEDS: Magnesium Oxide 400 mg Tab UD PO SCH (08:31)
[2018-09-11] MEDS: Pantoprazole 40 mg EC Tab PO SCH (08:32)
[2018-09-11] MEDS: Insulin Lispro (humaLOG) 100 Units/ml Inj SC SCH (08:37)
[2018-09-11] MEDS: Sucralfate 1 gm/10 ml Oral Susp UD PO SCH ×2 (08:37→14:11)
[2018-09-11] MEDS: Lidocaine 5% Patch TD SCH (08:42)
[2018-09-11] MEDS: Azithromycin 500 MG in Sodium Chloride 0.9% 250 ML IVPB SCH (11:09)
--- NOTE | 2018-09-11 16:42 | CP.PCM.PN ---
Subjective - Date & Time of Evaluation Date of Evaluation: 09/10/18 Time of Evaluation: 15:00 - Subjective Subjective: Patient with less abdominal pain and denies diarrhea. Objective - Vital Signs/Intake and Output Vital Signs (last 24 hours): Temp Pulse Resp BP Pulse Ox 97.6 F 80 20 99/57 L 99 09/11/18 07:57 09/11/18 08:32 09/11/18 07:57 09/11/18 08:32 09/11/18 07:57 - Medications Medications: Current Medications Acetaminophen (Tylenol 325mg Tab) 650 mg PO Q6 PRN PRN Reason: Pain, Mild (1-3) Last Admin: 09/10/18 23:31 Dose: 650 mg Ascorbic Acid (Vitamin C 500 Mg Tab) 500 mg PO DAILY [facility] Last Admin: 09/11/18 08:32 Dose: 500 mg Atorvastatin Calcium (Lipitor) 20 mg PO HS [facility] Last Admin: 09/10/18 23:37 Dose: 20 mg Cyanocobalamin (Vitamin B12 1000 Mcg Tab) 1,000 mcg PO DAILY [facility] Last Admin: 09/11/18 08:32 Dose: 1,000 mcg Dextrose (Dextrose 50% Inj) 0 ml IV STAT PRN; Protocol PRN Reason: Hypoglycemia Protocol Dextrose (Glutose 15) 15 gm PO PRN PRN PRN Reason: Hypoglycemia Dextrose (Glutose 15) 0 gm PO ONCE PRN; Protocol PRN Reason: Hypoglycemia Protocol Ferrous Sulfate (Feosol) 325 mg PO Q8 [facility] Last Admin: 09/11/18 08:30 Dose: 325 mg Furosemide (Lasix) 20 mg IVP BID [facility] Last Admin: 09/11/18 08:31 Dose: 20 mg Gabapentin (Neurontin) 300 mg PO Q12 [facility] Last Admin: 09/11/18 08:32 Dose: 300 mg Glucagon (Glucagen Diagnostic Kit) 0 mg IM STAT PRN; Protocol PRN Reason: Hypoglycemia Protocol Hydrocortisone (Hydrocortisone 2.5%) 1 applic TOP BID [facility] Last Admin: 09/11/18 08:30 Dose: 1 applic Ceftriaxone Sodium 1 gm/ (Sodium Chloride) 100 mls @ 100 mls/hr IVPB DAILY@1700 [facility]; Protocol Last Admin: 09/10/18 16:40 Dose: 100 mls/hr Iron Sucrose 200 mg/ Sodium (Chloride) 110 mls @ 110 mls/hr IVPB DAILY [facility] Last Admin: 09/11/18 08:37 Dose: 110 mls/hr Azithromycin 500 mg/ Sodium (Chloride) 250 mls @ 250 mls/hr IVPB DAILY [facility] Last Admin: 09/11/18 11:09 Dose: 250 mls/hr Insulin Detemir (Levemir) 34 units SC [facility] Last Admin: 09/10/18 23:34 Dose: 34 units Insulin Human Lispro (Humalog) 15 units SC ACB [facility] Last Admin: 09/11/18 08:37 Dose: 15 units Insulin Human Regular (Humulin R) 0 units SC [facility]; Protocol Last Admin: 09/11/18 12:18 Dose: Not Given Levothyroxine Sodium (Synthroid) 175 mcg PO DAILY@0630 [facility] Last Admin: 09/11/18 06:49 Dose: 175 mcg Lisinopril (Zestril) 20 mg PO DAILY [facility] Last Admin: 09/11/18 08:32 Dose: 20 mg Magnesium Oxide (Mag-Ox) 400 mg PO DAILY [facility] Last Admin: 09/11/18 08:31 Dose: 400 mg Mirtazapine (Remeron Odt) 30 mg PO [facility] Last Admin: 09/10/18 23:38 Dose: 30 mg Ondansetron HCl (Zofran Inj) 4 mg IVP Q4 PRN PRN Reason: Nausea/Vomiting Pantoprazole Sodium (Protonix Ec Tab) 40 mg PO DAILY [facility] Last Admin: 09/11/18 08:32 Dose: 40 mg Pramipexole Dihydrochloride (Mirapex) 0.5 mg PO [facility] Last Admin: 09/10/18 23:37 Dose: 0.5 mg Spironolactone (Aldactone) 50 mg PO DAILY [facility] Last Admin: 09/11/18 08:30 Dose: 50 mg Sucralfate (Carafate Oral Susp) 1 gm PO TID@0730,1130,1630 [facility] - Labs Labs: 09/11/18 06:15 09/11/18 06:15 - Head Exam Head Exam: ATRAUMATIC - Eye Exam Eye Exam: Normal appearance Pupil Exam: PERRL - ENT Exam ENT Exam: Normal Exam - Neck Exam Neck Exam: Normal Inspection - Respiratory Exam Respiratory Exam: NORMAL BREATHING PATTERN - GI/Abdominal Exam GI & Abdominal Exam: Distended, Soft, Normal Bowel Sounds. absent: Tenderness Assessment and Plan (1) Anemia Assessment & Plan: Hgb remains stable. bdomian pain/diarrhea controlled. Continue current regimen. Status: Acute
[2018-09-11] MEDS: Insulin Detemir 100 Units/ml Inj SC SCH (22:10)
[2018-09-11] MEDS: Mirtazapine 30 MG ODT PO SCH (22:13)
[2018-09-12] MEDS: Azithromycin 500 MG in Sodium Chloride 0.9% 250 ML IVPB SCH ×2 (06:02→13:40)
[2018-09-12] MEDS: Sucralfate 1 gm/10 ml Oral Susp UD PO SCH ×3 (07:03→16:18)
[2018-09-12] MEDS: Insulin Lispro (humaLOG) 100 Units/ml Inj SC SCH (07:03)
[2018-09-12] MEDS: Insulin Regular 100 units/ml SC SCH ×4 (07:04→22:41)
[2018-09-12 07:24] LABS: HEMOGLOBIN 8.4 g/dL (12.0-16.0); MEAN CELL VOLUME 95.4 fl (81.0-99.0); MEAN CORPUSCULAR HEMOGLOBIN 30.7 pg (27.0-31.0); MEAN CORPUSCULAR HGB CONC 32.2 g/dL (33.0-37.0); RBC 2.75 Mil/uL (3.80-5.20); RED CELL DISTRIBUTION WIDTH 18.3 % (11.5-14.5); WHITE BLOOD COUNT 2.7 K/uL (4.8-10.8)
[2018-09-12] MEDS: Levothyroxine 175 MCG TAB PO SCH (07:30)
[2018-09-12] MEDS: Magnesium Oxide 400 mg Tab UD PO SCH (09:22)
[2018-09-12] MEDS: Pantoprazole 40 mg EC Tab PO SCH (09:22)
[2018-09-12] MEDS: Mirtazapine 30 MG ODT PO SCH (21:19)
[2018-09-12] MEDS: Insulin Detemir 100 Units/ml Inj SC SCH (22:43)
[2018-09-13] MEDS: Azithromycin 500 MG in Sodium Chloride 0.9% 250 ML IVPB SCH (05:02)
[2018-09-13] MEDS: Levothyroxine 175 MCG TAB PO SCH (06:24)
[2018-09-13 07:28] LABS: BASO % 0.2 % (0.0-2.0); EOS # 0.2 K/uL (0.0-0.7); EOS % 3.9 % (0.0-4.0); HEMOGLOBIN 9.2 g/dL (12.0-16.0); LYMPH # 0.7 K/uL (1.0-4.3); LYMPH % 15.3 % (20.0-40.0); MEAN CORPUSCULAR HEMOGLOBIN 30.7 pg (27.0-31.0); MEAN CORPUSCULAR HGB CONC 32.3 g/dL (33.0-37.0); MONO # 0.3 K/uL (0.0-0.8); MONO % 6.1 % (0.0-10.0); NEUT # 3.2 K/uL (1.8-7.0); NEUT % 74.5 % (50.0-75.0); RBC 2.99 Mil/uL (3.80-5.20); RED CELL DISTRIBUTION WIDTH 17.2 % (11.5-14.5); WHITE BLOOD COUNT 4.3 K/uL (4.8-10.8)
[2018-09-13 08:24] LABS: ALB/GLOB RATIO 0.8 (1.0-2.1); ALBUMIN 2.8 g/dL (3.5-5.0); ALT/SGPT 27 U/L (9-52); AST/SGOT 42 U/L (14-36); BLOOD UREA NITROGEN 13 mg/dl (7-17); GFR NON-AFRICAN AMERICAN > 60
[2018-09-13] MEDS: Sucralfate 1 gm/10 ml Oral Susp UD PO SCH ×3 (08:32→17:12)
[2018-09-13] MEDS: Insulin Regular 100 units/ml SC SCH ×4 (08:33→22:00)
[2018-09-13] MEDS: Insulin Lispro (humaLOG) 100 Units/ml Inj SC SCH (08:33)
[2018-09-13] MEDS: Pantoprazole 40 mg EC Tab PO SCH (08:35)
[2018-09-13] MEDS: Magnesium Oxide 400 mg Tab UD PO SCH (08:50)
--- NOTE | 2018-09-13 14:12 | RAD ---
Date of service: 09/13/2018 HISTORY: monitor PNA COMPARISON: comparison chest dated 09/07/18 TECHNIQUE: 1 view obtained. FINDINGS: LUNGS: Mild pulmonary venous congestive changes with bilateral alveolar-type infiltrates. Questionable small bilateral effusions PLEURA: As above. No pneumothorax apparent. CARDIOVASCULAR: Mild aortic atherosclerotic calcification present. Heart is enlarged. OSSEOUS STRUCTURES: No significant abnormalities. VISUALIZED UPPER ABDOMEN: Normal. OTHER FINDINGS: None. IMPRESSION: Mild pulmonary venous congestive changes with bilateral alveolar-type infiltrates. Questionable small bilateral effusions
--- NOTE | 2018-09-13 17:14 | RAD ---
Date of service: 09/13/2018 HISTORY: Rule out free air + obstruction COMPARISON: Comparison made with obstructive series 1 [id number] and chest radiograph dated 09/07/2018. TECHNIQUE: 1 portable view of the abdomen obtained. Note that the examination is limited for evaluation of free air due to supine patient positioning and the lack of a erect chest radiograph as well FINDINGS: BOWEL: Diffuse hazy appearance of the abdomen with a localized distended loop of bowel in the right mid to upper abdomen region nonspecific possibly representing localized ileus. Findings do not suggest obstruction. No gross free intraperitoneal air seen on this exam however dedicated erect chest radiograph and erect view of the abdomen in the department of Radiology recommended as possibility of a small amount of free air cannot be excluded based on this limited study BONES: Normal. OTHER FINDINGS: None. IMPRESSION: Note that the examination is limited for evaluation of free air due to supine patient positioning and the lack of a erect chest radiograph as well Diffuse hazy appearance of the abdomen with a localized distended loop of bowel in the right mid to upper abdomen region nonspecific possibly representing localized ileus. Findings do not suggest obstruction. No gross free intraperitoneal air seen on this exam however dedicated erect chest radiograph and erect view of the abdomen in the department of Radiology recommended as possibility of a small amount of free air cannot be excluded based on this limited study
--- NOTE | 2018-09-13 18:32 | CP.PCM.PN ---
Subjective - Date & Time of Evaluation Date of Evaluation: 09/11/18 Time of Evaluation: 11:00 - Subjective Subjective: Patient remains stable Has no chest pain. Hgb 8.4 Objective - Vital Signs/Intake and Output Vital Signs (last 24 hours): Temp Pulse Resp BP Pulse Ox 98.3 F 78 20 105/67 94 L 09/13/18 18:02 09/13/18 18:02 09/13/18 18:02 09/13/18 18:02 09/13/18 18:02 - Medications Medications: Current Medications Acetaminophen (Tylenol 325mg Tab) 650 mg PO Q6 PRN PRN Reason: Pain, Mild (1-3) Last Admin: 09/13/18 01:08 Dose: 650 mg Ascorbic Acid (Vitamin C 500 Mg Tab) 500 mg PO DAILY [facility] Last Admin: 09/13/18 08:49 Dose: Not Given Atorvastatin Calcium (Lipitor) 20 mg PO HS [facility] Last Admin: 09/12/18 21:18 Dose: 20 mg Cyanocobalamin (Vitamin B12 1000 Mcg Tab) 1,000 mcg PO DAILY [facility] Last Admin: 09/13/18 08:49 Dose: Not Given Dextrose (Dextrose 50% Inj) 0 ml IV STAT PRN; Protocol PRN Reason: Hypoglycemia Protocol Dextrose (Glutose 15) 15 gm PO PRN PRN PRN Reason: Hypoglycemia Dextrose (Glutose 15) 0 gm PO ONCE PRN; Protocol PRN Reason: Hypoglycemia Protocol Ferrous Sulfate (Feosol) 325 mg PO Q8 [facility] Last Admin: 09/13/18 17:12 Dose: 325 mg Furosemide (Lasix) 20 mg PO BID [facility] Last Admin: 09/13/18 17:13 Dose: 20 mg Gabapentin (Neurontin) 300 mg PO Q12 [facility] Last Admin: 09/13/18 08:50 Dose: Not Given Glucagon (Glucagen Diagnostic Kit) 0 mg IM STAT PRN; Protocol PRN Reason: Hypoglycemia Protocol Hydrocortisone (Hydrocortisone 2.5%) 1 applic TOP BID [facility] Last Admin: 09/13/18 17:12 Dose: 1 applic Iron Sucrose 200 mg/ Sodium (Chloride) 110 mls @ 110 mls/hr IVPB DAILY [facility] Last Admin: 09/13/18 08:39 Dose: 110 mls/hr Azithromycin 500 mg/ Sodium (Chloride) 250 mls @ 250 mls/hr IVPB DAILY@0600 [facility] Last Admin: 09/13/18 05:02 Dose: 250 mls/hr Ceftriaxone Sodium 1 gm/ (Sodium Chloride) 100 mls @ 100 mls/hr IVPB DAILY@2100 [facility]; Protocol Insulin Detemir (Levemir) 34 units SC HS [facility] Last Admin: 09/12/18 22:43 Dose: 34 units Insulin Human Lispro (Humalog) 15 units SC ACB [facility] Last Admin: 09/13/18 08:33 Dose: Not Given Insulin Human Regular (Humulin R) 0 units SC ACHS [facility]; Protocol Last Admin: 09/13/18 17:14 Dose: 2 unit Levothyroxine Sodium (Synthroid) 175 mcg PO DAILY@0630 [facility] Last Admin: 09/13/18 06:24 Dose: 175 mcg Lisinopril (Zestril) 20 mg PO DAILY [facility] Last Admin: 09/13/18 08:50 Dose: Not Given Magnesium Oxide (Mag-Ox) 400 mg PO DAILY [facility] Last Admin: 09/13/18 08:50 Dose: Not Given Mirtazapine (Remeron Odt) 30 mg PO [facility] Last Admin: 09/12/18 21:19 Dose: 30 mg Ondansetron HCl (Zofran Inj) 4 mg IVP Q4 PRN PRN Reason: Nausea/Vomiting Last Admin: 09/13/18 08:37 Dose: 4 mg Pantoprazole Sodium (Protonix Ec Tab) 40 mg PO DAILY [facility] Last Admin: 09/13/18 08:35 Dose: 40 mg Pramipexole Dihydrochloride (Mirapex) 0.5 mg PO [facility] Last Admin: 09/12/18 21:18 Dose: 0.5 mg Spironolactone (Aldactone) 50 mg PO DAILY [facility] Last Admin: 09/13/18 08:50 Dose: Not Given Sucralfate (Carafate Oral Susp) 1 gm PO TID@0730,1130,1630 [facility] Last Admin: 09/13/18 17:12 Dose: 1 gm Tramadol HCl (Ultram) 50 mg PO Q6 PRN PRN Reason: Pain, moderate (4-7) Last Admin: 09/12/18 22:01 Dose: 50 mg - Labs Labs: 09/13/18 06:30 09/13/18 06:30 - Head Exam Head Exam: NORMAL INSPECTION - Eye Exam Eye Exam: Normal appearance - ENT Exam ENT Exam: Mucous Membranes Moist - Respiratory Exam Respiratory Exam: Clear to Ausculation Bilateral - Cardiovascular Exam Cardiovascular Exam: REGULAR RHYTHM - GI/Abdominal Exam GI & Abdominal Exam: Normal Bowel Sounds Assessment and Plan (1) Anemia Status: Acute (2) Erosive gastritis Status: Acute (3) Pancytopenia Status: Acute - Assessment and Plan (Free Text) Plan: Cont meds Cont tx Cont PT follow up CBC
--- NOTE | 2018-09-13 19:13 | CP.PCM.PN ---
Subjective - Date & Time of Evaluation Date of Evaluation: 09/13/18 Time of Evaluation: 19:11 - Subjective Subjective: Had abdominal pain earlier . Improved with amblation Objective - Vital Signs/Intake and Output Vital Signs (last 24 hours): Temp Pulse Resp BP Pulse Ox 98.3 F 78 20 105/67 94 L 09/13/18 18:02 09/13/18 18:02 09/13/18 18:02 09/13/18 18:02 09/13/18 18:02 - Medications Medications: Current Medications Acetaminophen (Tylenol 325mg Tab) 650 mg PO Q6 PRN PRN Reason: Pain, Mild (1-3) Last Admin: 09/13/18 01:08 Dose: 650 mg Ascorbic Acid (Vitamin C 500 Mg Tab) 500 mg PO DAILY [facility] Last Admin: 09/13/18 08:49 Dose: Not Given Atorvastatin Calcium (Lipitor) 20 mg PO HS [facility] Last Admin: 09/12/18 21:18 Dose: 20 mg Cyanocobalamin (Vitamin B12 1000 Mcg Tab) 1,000 mcg PO DAILY [facility] Last Admin: 09/13/18 08:49 Dose: Not Given Dextrose (Dextrose 50% Inj) 0 ml IV STAT PRN; Protocol PRN Reason: Hypoglycemia Protocol Dextrose (Glutose 15) 15 gm PO PRN PRN PRN Reason: Hypoglycemia Dextrose (Glutose 15) 0 gm PO ONCE PRN; Protocol PRN Reason: Hypoglycemia Protocol Ferrous Sulfate (Feosol) 325 mg PO Q8 [facility] Last Admin: 09/13/18 17:12 Dose: 325 mg Furosemide (Lasix) 20 mg PO BID [facility] Last Admin: 09/13/18 17:13 Dose: 20 mg Gabapentin (Neurontin) 300 mg PO Q12 [facility] Last Admin: 09/13/18 08:50 Dose: Not Given Glucagon (Glucagen Diagnostic Kit) 0 mg IM STAT PRN; Protocol PRN Reason: Hypoglycemia Protocol Hydrocortisone (Hydrocortisone 2.5%) 1 applic TOP BID [facility] Last Admin: 09/13/18 17:12 Dose: 1 applic Iron Sucrose 200 mg/ Sodium (Chloride) 110 mls @ 110 mls/hr IVPB DAILY [facility] Last Admin: 09/13/18 08:39 Dose: 110 mls/hr Azithromycin 500 mg/ Sodium (Chloride) 250 mls @ 250 mls/hr IVPB DAILY@0600 [facility] Last Admin: 09/13/18 05:02 Dose: 250 mls/hr Ceftriaxone Sodium 1 gm/ (Sodium Chloride) 100 mls @ 100 mls/hr IVPB DAILY@2100 [facility]; Protocol Insulin Detemir (Levemir) 34 units SC [facility] Last Admin: 09/12/18 22:43 Dose: 34 units Insulin Human Lispro (Humalog) 15 units SC ACB [facility] Last Admin: 09/13/18 08:33 Dose: Not Given Insulin Human Regular (Humulin R) 0 units SC [facility]; Protocol Last Admin: 09/13/18 17:14 Dose: 2 unit Levothyroxine Sodium (Synthroid) 175 mcg PO DAILY@0630 [facility] Last Admin: 09/13/18 06:24 Dose: 175 mcg Lisinopril (Zestril) 20 mg PO DAILY [facility] Last Admin: 09/13/18 08:50 Dose: Not Given Magnesium Oxide (Mag-Ox) 400 mg PO DAILY [facility] Last Admin: 09/13/18 08:50 Dose: Not Given Mirtazapine (Remeron Odt) 30 mg PO [facility] Last Admin: 09/12/18 21:19 Dose: 30 mg Ondansetron HCl (Zofran Inj) 4 mg IVP Q4 PRN PRN Reason: Nausea/Vomiting Last Admin: 09/13/18 08:37 Dose: 4 mg Pantoprazole Sodium (Protonix Ec Tab) 40 mg PO DAILY [facility] Last Admin: 09/13/18 08:35 Dose: 40 mg Pramipexole Dihydrochloride (Mirapex) 0.5 mg PO [facility] Last Admin: 09/12/18 21:18 Dose: 0.5 mg Spironolactone (Aldactone) 50 mg PO DAILY [facility] Last Admin: 09/13/18 08:50 Dose: Not Given Sucralfate (Carafate Oral Susp) 1 gm PO TID@0730,1130,1630 [facility] Last Admin: 09/13/18 17:12 Dose: 1 gm Tramadol HCl (Ultram) 50 mg PO Q6 PRN PRN Reason: Pain, moderate (4-7) Last Admin: 09/12/18 22:01 Dose: 50 mg - Labs Labs: 09/13/18 06:30 09/13/18 06:30 - Head Exam Head Exam: ATRAUMATIC - Eye Exam Eye Exam: Normal appearance - Respiratory Exam Respiratory Exam: NORMAL BREATHING PATTERN - Cardiovascular Exam Cardiovascular Exam: REGULAR RHYTHM - GI/Abdominal Exam GI & Abdominal Exam: Soft, Tenderness, Normal Bowel Sounds Assessment and Plan (1) Anemia Assessment & Plan: Abdominal distention likely gaseous. Encourage ambulation. Status: Acute
[2018-09-13] MEDS: Mirtazapine 30 MG ODT PO SCH (21:54)
[2018-09-13] MEDS: Insulin Detemir 100 Units/ml Inj SC SCH (21:55)
--- NOTE | 2018-09-13 23:11 | CP.PCM.PN ---
Subjective - Date & Time of Evaluation Date of Evaluation: 09/11/18 Time of Evaluation: 12:00 - Subjective Subjective: No complaints. Objective - Vital Signs/Intake and Output Vital Signs (last 24 hours): Temp Pulse Resp BP Pulse Ox 98.8 F 81 20 95/69 L 100 09/13/18 21:32 09/13/18 21:32 09/13/18 21:32 09/13/18 21:32 09/13/18 21:32 - Medications Medications: Current Medications Acetaminophen (Tylenol 325mg Tab) 650 mg PO Q6 PRN PRN Reason: Pain, Mild (1-3) Last Admin: 09/13/18 01:08 Dose: 650 mg Ascorbic Acid (Vitamin C 500 Mg Tab) 500 mg PO DAILY [facility] Last Admin: 09/13/18 08:49 Dose: Not Given Atorvastatin Calcium (Lipitor) 20 mg PO HS [facility] Last Admin: 09/13/18 21:56 Dose: 20 mg Cyanocobalamin (Vitamin B12 1000 Mcg Tab) 1,000 mcg PO DAILY [facility] Last Admin: 09/13/18 08:49 Dose: Not Given Dextrose (Dextrose 50% Inj) 0 ml IV STAT PRN; Protocol PRN Reason: Hypoglycemia Protocol Dextrose (Glutose 15) 15 gm PO PRN PRN PRN Reason: Hypoglycemia Dextrose (Glutose 15) 0 gm PO ONCE PRN; Protocol PRN Reason: Hypoglycemia Protocol Ferrous Sulfate (Feosol) 325 mg PO Q8 [facility] Last Admin: 09/13/18 17:12 Dose: 325 mg Furosemide (Lasix) 20 mg PO BID [facility] Last Admin: 09/13/18 17:13 Dose: 20 mg Gabapentin (Neurontin) 300 mg PO Q12 [facility] Last Admin: 09/13/18 21:54 Dose: 300 mg Glucagon (Glucagen Diagnostic Kit) 0 mg IM STAT PRN; Protocol PRN Reason: Hypoglycemia Protocol Hydrocortisone (Hydrocortisone 2.5%) 1 applic TOP BID [facility] Last Admin: 09/13/18 17:12 Dose: 1 applic Iron Sucrose 200 mg/ Sodium (Chloride) 110 mls @ 110 mls/hr IVPB DAILY [facility] Last Admin: 09/13/18 08:39 Dose: 110 mls/hr Azithromycin 500 mg/ Sodium (Chloride) 250 mls @ 250 mls/hr IVPB DAILY@0600 [facility] Last Admin: 09/13/18 05:02 Dose: 250 mls/hr Ceftriaxone Sodium 1 gm/ (Sodium Chloride) 100 mls @ 100 mls/hr IVPB DAILY@2100 [facility]; Protocol Last Admin: 09/13/18 21:53 Dose: 100 mls/hr Insulin Detemir (Levemir) 34 units SC [facility] Last Admin: 09/13/18 21:55 Dose: 34 units Insulin Human Lispro (Humalog) 15 units SC ACB [facility] Last Admin: 09/13/18 08:33 Dose: Not Given Insulin Human Regular (Humulin R) 0 units SC [facility]; Protocol Last Admin: 09/13/18 17:14 Dose: 2 unit Levothyroxine Sodium (Synthroid) 175 mcg PO DAILY@0630 [facility] Last Admin: 09/13/18 06:24 Dose: 175 mcg Lisinopril (Zestril) 20 mg PO DAILY [facility] Last Admin: 09/13/18 08:50 Dose: Not Given Magnesium Oxide (Mag-Ox) 400 mg PO DAILY [facility] Last Admin: 09/13/18 08:50 Dose: Not Given Mirtazapine (Remeron Odt) 30 mg PO [facility] Last Admin: 09/13/18 21:54 Dose: 30 mg Ondansetron HCl (Zofran Inj) 4 mg IVP Q4 PRN PRN Reason: Nausea/Vomiting Last Admin: 09/13/18 08:37 Dose: 4 mg Pantoprazole Sodium (Protonix Ec Tab) 40 mg PO DAILY [facility] Last Admin: 09/13/18 08:35 Dose: 40 mg Pramipexole Dihydrochloride (Mirapex) 0.5 mg PO [facility] Last Admin: 09/13/18 21:55 Dose: 0.5 mg Simethicone (Mylicon Chew Tab) 80 mg PO QID [facility] Spironolactone (Aldactone) 50 mg PO DAILY [facility] Last Admin: 09/13/18 08:50 Dose: Not Given Sucralfate (Carafate Oral Susp) 1 gm PO TID@0730,1130,1630 [facility] Last Admin: 09/13/18 17:12 Dose: 1 gm Tramadol HCl (Ultram) 50 mg PO Q6 PRN PRN Reason: Pain, moderate (4-7) Last Admin: 09/12/18 22:01 Dose: 50 mg - Labs Labs: 09/13/18 06:30 09/13/18 06:30 - Head Exam Head Exam: ATRAUMATIC - Eye Exam Eye Exam: Normal appearance - ENT Exam ENT Exam: Mucous Membranes Dry - Respiratory Exam Respiratory Exam: NORMAL BREATHING PATTERN - Cardiovascular Exam Cardiovascular Exam: +S1, +S2 - GI/Abdominal Exam GI & Abdominal Exam: Normal Bowel Sounds Assessment and Plan (1) Pancytopenia Assessment & Plan: liver cirrhosis with splenomegaly splenic sequestration prior iron deficiency; on IV iron will consider bone marrow evaluation as outpatient depending on capsule endoscopy Status: Acute
--- NOTE | 2018-09-14 01:30 | CP.PCM.PN ---
Subjective - Date & Time of Evaluation Date of Evaluation: 09/12/18 Time of Evaluation: 11:45 - Subjective Subjective: Pt seen and assessed at bedside. No new complaints. Hgb is stable. Subjective Review of Systems: Reviewed and no additional remarkable complaints except occasional abdominal pain and weakness. Objective Vital Signs Stable Appears: Non-toxic, No Acute Distress. Head Exam: NORMAL INSPECTION, normocephalic. Eye Exam: Normal appearance, EOMI, PERRLA. Respiratory Exam: NORMAL BREATHING PATTERN, breath sounds clear to auscultation. Cardiovascular Exam: +S1, +S2. RRR GI & Abdominal Exam: Mildly distended, round, non-tender. Neurological Exam: Alert, Awake, Oriented x3. Psychiatric exam: Normal Affect, Normal Mood Skin Exam: Mild pallor, Warm, Dry. Assessment/Impression/Plan: 1.) Anemia -Hgb currently stable at 8.4. -All consults input appreciated. -On IV venofor. -Continue current treatment. Objective - Vital Signs/Intake and Output Vital Signs (last 24 hours): Temp Pulse Resp BP Pulse Ox 98.8 F 81 20 95/69 L 100 09/13/18 21:32 09/13/18 21:32 09/13/18 21:32 09/13/18 21:32 09/13/18 21:32 - Medications Medications: Current Medications Acetaminophen (Tylenol 325mg Tab) 650 mg PO Q6 PRN PRN Reason: Pain, Mild (1-3) Last Admin: 09/13/18 01:08 Dose: 650 mg Ascorbic Acid (Vitamin C 500 Mg Tab) 500 mg PO DAILY [facility] Last Admin: 09/13/18 08:49 Dose: Not Given Atorvastatin Calcium (Lipitor) 20 mg PO HS [facility] Last Admin: 09/13/18 21:56 Dose: 20 mg Cyanocobalamin (Vitamin B12 1000 Mcg Tab) 1,000 mcg PO DAILY [facility] Last Admin: 09/13/18 08:49 Dose: Not Given Dextrose (Dextrose 50% Inj) 0 ml IV STAT PRN; Protocol PRN Reason: Hypoglycemia Protocol Dextrose (Glutose 15) 15 gm PO PRN PRN PRN Reason: Hypoglycemia Dextrose (Glutose 15) 0 gm PO ONCE PRN; Protocol PRN Reason: Hypoglycemia Protocol Ferrous Sulfate (Feosol) 325 mg PO Q8 [facility] Last Admin: 09/13/18 17:12 Dose: 325 mg Furosemide (Lasix) 20 mg PO BID [facility] Last Admin: 09/13/18 17:13 Dose: 20 mg Gabapentin (Neurontin) 300 mg PO Q12 [facility] Last Admin: 09/13/18 21:54 Dose: 300 mg Glucagon (Glucagen Diagnostic Kit) 0 mg IM STAT PRN; Protocol PRN Reason: Hypoglycemia Protocol Hydrocortisone (Hydrocortisone 2.5%) 1 applic TOP BID [facility] Last Admin: 09/13/18 17:12 Dose: 1 applic Iron Sucrose 200 mg/ Sodium (Chloride) 110 mls @ 110 mls/hr IVPB DAILY [facility] Last Admin: 09/13/18 08:39 Dose: 110 mls/hr Azithromycin 500 mg/ Sodium (Chloride) 250 mls @ 250 mls/hr IVPB DAILY@0600 [facility] Last Admin: 09/13/18 05:02 Dose: 250 mls/hr Ceftriaxone Sodium 1 gm/ (Sodium Chloride) 100 mls @ 100 mls/hr IVPB DAILY@2100 [facility]; Protocol Last Admin: 09/13/18 21:53 Dose: 100 mls/hr Insulin Detemir (Levemir) 34 units SC [facility] Last Admin: 09/13/18 21:55 Dose: 34 units Insulin Human Lispro (Humalog) 15 units SC B [facility] Last Admin: 09/13/18 08:33 Dose: Not Given Insulin Human Regular (Humulin R) 0 units SC [facility]; Protocol Last Admin: 09/13/18 22:00 Dose: Not Given Levothyroxine Sodium (Synthroid) 175 mcg PO DAILY@0630 [facility] Last Admin: 09/13/18 06:24 Dose: 175 mcg Lisinopril (Zestril) 20 mg PO DAILY [facility] Last Admin: 09/13/18 08:50 Dose: Not Given Magnesium Oxide (Mag-Ox) 400 mg PO DAILY [facility] Last Admin: 09/13/18 08:50 Dose: Not Given Mirtazapine (Remeron Odt) 30 mg PO [facility] Last Admin: 09/13/18 21:54 Dose: 30 mg Ondansetron HCl (Zofran Inj) 4 mg IVP Q4 PRN PRN Reason: Nausea/Vomiting Last Admin: 09/13/18 08:37 Dose: 4 mg Pantoprazole Sodium (Protonix Ec Tab) 40 mg PO DAILY [facility] Last Admin: 09/13/18 08:35 Dose: 40 mg Pramipexole Dihydrochloride (Mirapex) 0.5 mg PO HS [facility] Last Admin: 09/13/18 21:55 Dose: 0.5 mg Simethicone (Mylicon Chew Tab) 80 mg PO QID [facility] Spironolactone (Aldactone) 50 mg PO DAILY [facility] Last Admin: 09/13/18 08:50 Dose: Not Given Sucralfate (Carafate Oral Susp) 1 gm PO TID@0730,1130,1630 [facility] Last Admin: 09/13/18 17:12 Dose: 1 gm Tramadol HCl (Ultram) 50 mg PO Q6 PRN PRN Reason: Pain, moderate (4-7) Last Admin: 09/12/18 22:01 Dose: 50 mg - Labs Labs: 09/13/18 06:30 09/13/18 06:30 Assessment and Plan (1) Anemia Status: Acute
--- NOTE | 2018-09-14 01:35 | CP.PCM.PN ---
Subjective - Date & Time of Evaluation Date of Evaluation: 09/13/18 Time of Evaluation: 12:00 - Subjective Subjective: Subjective: Pt seen and assessed at bedside. C/O abdominal pain and bloating, as well as a persistent cough. Hgb is up to 9.2. Subjective Review of Systems: Reviewed and no additional remarkable complaints except occasional abdominal pain and weakness, worsening cough. Objective Vital Signs Stable Appears: Non-toxic, No Acute Distress. Head Exam: NORMAL INSPECTION, normocephalic. Eye Exam: Normal appearance, EOMI, PERRLA. Respiratory Exam: NORMAL BREATHING PATTERN, breath sounds clear to auscultation. Cough observed. Cardiovascular Exam: +S1, +S2. RRR GI & Abdominal Exam: distended, round, non-tender. Neurological Exam: Alert, Awake, Oriented x3. Psychiatric exam: Normal Affect, Normal Mood Skin Exam: Mild pallor, Warm, Dry. Assessment/Impression/Plan: 1.) Anemia/Abdominal pain -Hgb currently stable at 9.2 -All consults input appreciated. -On IV venofer. -Abdominal X-ray ordered to r/o ileus and presence of free air. -Continue current treatment. -c/o worsening cough; CXR ordered. -Ultram for pain. -Will add mylicon for gas. Objective - Vital Signs/Intake and Output Vital Signs (last 24 hours): Temp Pulse Resp BP Pulse Ox 98.8 F 81 20 95/69 L 100 09/13/18 21:32 09/13/18 21:32 09/13/18 21:32 09/13/18 21:32 09/13/18 21:32 - Medications Medications: Current Medications Acetaminophen (Tylenol 325mg Tab) 650 mg PO Q6 PRN PRN Reason: Pain, Mild (1-3) Last Admin: 09/13/18 01:08 Dose: 650 mg Ascorbic Acid (Vitamin C 500 Mg Tab) 500 mg PO DAILY [facility] Last Admin: 09/13/18 08:49 Dose: Not Given Atorvastatin Calcium (Lipitor) 20 mg PO HS [facility] Last Admin: 09/13/18 21:56 Dose: 20 mg Cyanocobalamin (Vitamin B12 1000 Mcg Tab) 1,000 mcg PO DAILY [facility] Last Admin: 09/13/18 08:49 Dose: Not Given Dextrose (Dextrose 50% Inj) 0 ml IV STAT PRN; Protocol PRN Reason: Hypoglycemia Protocol Dextrose (Glutose 15) 15 gm PO PRN PRN PRN Reason: Hypoglycemia Dextrose (Glutose 15) 0 gm PO ONCE PRN; Protocol PRN Reason: Hypoglycemia Protocol Ferrous Sulfate (Feosol) 325 mg PO Q8 [facility] Last Admin: 09/13/18 17:12 Dose: 325 mg Furosemide (Lasix) 20 mg PO BID [facility] Last Admin: 09/13/18 17:13 Dose: 20 mg Gabapentin (Neurontin) 300 mg PO Q12 [facility] Last Admin: 09/13/18 21:54 Dose: 300 mg Glucagon (Glucagen Diagnostic Kit) 0 mg IM STAT PRN; Protocol PRN Reason: Hypoglycemia Protocol Hydrocortisone (Hydrocortisone 2.5%) 1 applic TOP BID [facility] Last Admin: 09/13/18 17:12 Dose: 1 applic Iron Sucrose 200 mg/ Sodium (Chloride) 110 mls @ 110 mls/hr IVPB DAILY [facility] Last Admin: 09/13/18 08:39 Dose: 110 mls/hr Azithromycin 500 mg/ Sodium (Chloride) 250 mls @ 250 mls/hr IVPB DAILY@0600 [facility] Last Admin: 09/13/18 05:02 Dose: 250 mls/hr Ceftriaxone Sodium 1 gm/ (Sodium Chloride) 100 mls @ 100 mls/hr IVPB DAILY@2100 [facility]; Protocol Last Admin: 09/13/18 21:53 Dose: 100 mls/hr Insulin Detemir (Levemir) 34 units SC [facility] Last Admin: 09/13/18 21:55 Dose: 34 units Insulin Human Lispro (Humalog) 15 units SC ACB [facility] Last Admin: 09/13/18 08:33 Dose: Not Given Insulin Human Regular (Humulin R) 0 units SC [facility]; Protocol Last Admin: 09/13/18 22:00 Dose: Not Given Levothyroxine Sodium (Synthroid) 175 mcg PO DAILY@0630 [facility] Last Admin: 09/13/18 06:24 Dose: 175 mcg Lisinopril (Zestril) 20 mg PO DAILY [facility] Last Admin: 09/13/18 08:50 Dose: Not Given Magnesium Oxide (Mag-Ox) 400 mg PO DAILY [facility] Last Admin: 09/13/18 08:50 Dose: Not Given Mirtazapine (Remeron Odt) 30 mg PO [facility] Last Admin: 09/13/18 21:54 Dose: 30 mg Ondansetron HCl (Zofran Inj) 4 mg IVP Q4 PRN PRN Reason: Nausea/Vomiting Last Admin: 09/13/18 08:37 Dose: 4 mg Pantoprazole Sodium (Protonix Ec Tab) 40 mg PO DAILY [facility] Last Admin: 09/13/18 08:35 Dose: 40 mg Pramipexole Dihydrochloride (Mirapex) 0.5 mg PO HS [facility] Last Admin: 09/13/18 21:55 Dose: 0.5 mg Simethicone (Mylicon Chew Tab) 80 mg PO QID [facility] Spironolactone (Aldactone) 50 mg PO DAILY [facility] Last Admin: 09/13/18 08:50 Dose: Not Given Sucralfate (Carafate Oral Susp) 1 gm PO TID@0730,1130,1630 [facility] Last Admin: 09/13/18 17:12 Dose: 1 gm Tramadol HCl (Ultram) 50 mg PO Q6 PRN PRN Reason: Pain, moderate (4-7) Last Admin: 09/12/18 22:01 Dose: 50 mg - Labs Labs: 09/13/18 06:30 09/13/18 06:30 Assessment and Plan (1) Anemia Status: Acute (2) Abdominal pain Status: Acute
[2018-09-14] MEDS: Levothyroxine 175 MCG TAB PO SCH (05:50)
[2018-09-14] MEDS: Azithromycin 500 MG in Sodium Chloride 0.9% 250 ML IVPB SCH (06:14)
[2018-09-14 07:44] LABS: BASO # 0.1 K/uL (0.0-0.2); BASO % 2.9 % (0.0-2.0); EOS # 0.1 K/uL (0.0-0.7); HEMOGLOBIN 8.2 g/dL (12.0-16.0); LYMPH # 0.5 K/uL (1.0-4.3); LYMPH % 19.9 % (20.0-40.0); MEAN CORPUSCULAR HEMOGLOBIN 30.5 pg (27.0-31.0); MEAN CORPUSCULAR HGB CONC 31.8 g/dL (33.0-37.0); MEAN PLATELET VOLUME 10.1 fl (7.2-11.7); MONO # 0.2 K/uL (0.0-0.8); MONO % 6.7 % (0.0-10.0); NEUT # 1.6 K/uL (1.8-7.0); NEUT % 65.5 % (50.0-75.0); RBC 2.69 Mil/uL (3.80-5.20); RED CELL DISTRIBUTION WIDTH 17.7 % (11.5-14.5); WHITE BLOOD COUNT 2.5 K/uL (4.8-10.8)
[2018-09-14 07:52] LABS: ALB/GLOB RATIO 0.8 (1.0-2.1); ALBUMIN 2.6 g/dL (3.5-5.0); ALT/SGPT 23 U/L (9-52); AST/SGOT 40 U/L (14-36); BLOOD UREA NITROGEN 13 mg/dl (7-17); CALCIUM 8.1 mg/dL (8.4-10.2); GFR NON-AFRICAN AMERICAN > 60
[2018-09-14] MEDS: Insulin Regular 100 units/ml SC SCH ×4 (08:02→22:00)
[2018-09-14] MEDS: Insulin Lispro (humaLOG) 100 Units/ml Inj SC SCH (08:02)
[2018-09-14] MEDS: Sucralfate 1 gm/10 ml Oral Susp UD PO SCH ×3 (08:02→16:41)
[2018-09-14] MEDS: Simethicone 80 mg Chewtab PO SCH ×4 (08:05→21:59)
[2018-09-14] MEDS: Magnesium Oxide 400 mg Tab UD PO SCH (08:05)
[2018-09-14] MEDS: Pantoprazole 40 mg EC Tab PO SCH (08:06)
--- NOTE | 2018-09-14 20:00 | CP.PCM.PN ---
Subjective - Date & Time of Evaluation Date of Evaluation: 09/14/18 Time of Evaluation: 10:00 - Subjective Subjective: patient currently doing therapy reviewed available data discussed with nursing repeat cbc in the am dispo planning rest of plan as ordered Objective - Vital Signs/Intake and Output Vital Signs (last 24 hours): Temp Pulse Resp BP Pulse Ox 98.4 F 82 20 100/64 99 09/14/18 16:58 09/14/18 16:58 09/14/18 16:58 09/14/18 16:58 09/14/18 16:58 - Medications Medications: Current Medications Acetaminophen (Tylenol 325mg Tab) 650 mg PO Q6 PRN PRN Reason: Pain, Mild (1-3) Last Admin: 09/13/18 01:08 Dose: 650 mg Ascorbic Acid (Vitamin C 500 Mg Tab) 500 mg PO DAILY [facility] Last Admin: 09/14/18 08:07 Dose: 500 mg Atorvastatin Calcium (Lipitor) 20 mg PO HS [facility] Last Admin: 09/13/18 21:56 Dose: 20 mg Cyanocobalamin (Vitamin B12 1000 Mcg Tab) 1,000 mcg PO DAILY [facility] Last Admin: 09/14/18 08:07 Dose: 1,000 mcg Dextrose (Dextrose 50% Inj) 0 ml IV STAT PRN; Protocol PRN Reason: Hypoglycemia Protocol Dextrose (Glutose 15) 15 gm PO PRN PRN PRN Reason: Hypoglycemia Dextrose (Glutose 15) 0 gm PO ONCE PRN; Protocol PRN Reason: Hypoglycemia Protocol Ferrous Sulfate (Feosol) 325 mg PO Q8 [facility] Last Admin: 09/14/18 16:43 Dose: 325 mg Furosemide (Lasix) 20 mg PO BID [facility] Last Admin: 09/14/18 16:45 Dose: 20 mg Gabapentin (Neurontin) 300 mg PO Q12 [facility] Last Admin: 09/14/18 08:06 Dose: 300 mg Glucagon (Glucagen Diagnostic Kit) 0 mg IM STAT PRN; Protocol PRN Reason: Hypoglycemia Protocol Hydrocortisone (Hydrocortisone 2.5%) 1 applic TOP BID [facility] Last Admin: 09/14/18 16:55 Dose: 1 applic Azithromycin 500 mg/ Sodium (Chloride) 250 mls @ 250 mls/hr IVPB DAILY@0600 [facility] Last Admin: 09/14/18 06:14 Dose: 250 mls/hr Ceftriaxone Sodium 1 gm/ (Sodium Chloride) 100 mls @ 100 mls/hr IVPB DAILY@2100 [facility]; Protocol Last Admin: 09/13/18 21:53 Dose: 100 mls/hr Iron Sucrose 200 mg/ Sodium (Chloride) 110 mls @ 110 mls/hr IVPB DAILY [facility] Insulin Detemir (Levemir) 34 units SC HS [facility] Last Admin: 09/13/18 21:55 Dose: 34 units Insulin Human Lispro (Humalog) 15 units SC ACB [facility] Last Admin: 09/14/18 08:02 Dose: Not Given Insulin Human Regular (Humulin R) 0 units SC ACHS [facility]; Protocol Last Admin: 09/14/18 16:42 Dose: 3 unit Levothyroxine Sodium (Synthroid) 175 mcg PO DAILY@0630 [facility] Last Admin: 09/14/18 05:50 Dose: 175 mcg Lisinopril (Zestril) 20 mg PO DAILY [facility] Last Admin: 09/14/18 08:07 Dose: 20 mg Magnesium Oxide (Mag-Ox) 400 mg PO DAILY [facility] Last Admin: 09/14/18 08:05 Dose: 400 mg Mirtazapine (Remeron Odt) 30 mg PO [facility] Last Admin: 09/13/18 21:54 Dose: 30 mg Ondansetron HCl (Zofran Inj) 4 mg IVP Q4 PRN PRN Reason: Nausea/Vomiting Last Admin: 09/13/18 08:37 Dose: 4 mg Pantoprazole Sodium (Protonix Ec Tab) 40 mg PO DAILY [facility] Last Admin: 09/14/18 08:06 Dose: 40 mg Pramipexole Dihydrochloride (Mirapex) 0.5 mg PO [facility] Last Admin: 09/13/18 21:55 Dose: 0.5 mg Simethicone (Mylicon Chew Tab) 80 mg PO QID [facility] Last Admin: 09/14/18 16:45 Dose: 80 mg Spironolactone (Aldactone) 50 mg PO DAILY [facility] Last Admin: 09/14/18 08:04 Dose: 50 mg Sucralfate (Carafate Oral Susp) 1 gm PO TID@0730,1130,1630 [facility] Last Admin: 09/14/18 16:41 Dose: 1 gm Tramadol HCl (Ultram) 50 mg PO Q6 PRN PRN Reason: Pain, moderate (4-7) Last Admin: 09/12/18 22:01 Dose: 50 mg - Labs Labs: 09/14/18 07:25 09/14/18 07:25 Assessment and Plan (1) Anemia Status: Acute (2) Pneumonia Status: Acute
[2018-09-14] MEDS: Insulin Detemir 100 Units/ml Inj SC SCH (21:58)
[2018-09-14] MEDS: Mirtazapine 30 MG ODT PO SCH (21:59)
[2018-09-15] MEDS: Levothyroxine 175 MCG TAB PO SCH (05:45)
[2018-09-15] MEDS: Azithromycin 500 MG in Sodium Chloride 0.9% 250 ML IVPB SCH (05:46)
[2018-09-15 06:23] LABS: HEMOGLOBIN 8.3 g/dL (12.0-16.0); MEAN CELL VOLUME 94.4 fl (81.0-99.0); MEAN CORPUSCULAR HEMOGLOBIN 30.6 pg (27.0-31.0); MEAN CORPUSCULAR HGB CONC 32.5 g/dL (33.0-37.0); RBC 2.72 Mil/uL (3.80-5.20); RED CELL DISTRIBUTION WIDTH 17.4 % (11.5-14.5); WHITE BLOOD COUNT 2.9 K/uL (4.8-10.8)
[2018-09-15] MEDS: Insulin Regular 100 units/ml SC SCH (06:43)
[2018-09-15] MEDS: Sucralfate 1 gm/10 ml Oral Susp UD PO SCH (07:40)
[2018-09-15] MEDS: Simethicone 80 mg Chewtab PO SCH (08:07)
[2018-09-15] MEDS: Pantoprazole 40 mg EC Tab PO SCH (08:07)
[2018-09-15] MEDS: Magnesium Oxide 400 mg Tab UD PO SCH (08:08)
[2018-09-15 08:09] VITALS: BP 110/67
[2018-09-15] MEDS: Insulin Lispro (humaLOG) 100 Units/ml Inj SC SCH (08:09)
[2018-09-15 08:22] VITALS: PULSE 83; TEMP 98.4; O2SAT 99
== END 2018-09-15 14:00 | disposition home or self-care (01) | DRG 810 ==
LOC: H.TCU 13:47
PROVIDERS: ADMIT Family Medicine; ATTEND Family Medicine
PROC: F07Z9FZ Gait Training/Functional Ambulation Treatment using Assistive, Adaptive, Supportive or Protective Equipment (ICD-10-PCS; principal; 2018-09-09)
PROC: F08Z4FZ Home Management Treatment using Assistive, Adaptive, Supportive or Protective Equipment (ICD-10-PCS; 2018-09-09)
PROC: F07M6FZ Therapeutic Exercise Treatment of Musculoskeletal System - Whole Body using Assistive, Adaptive, Supportive or Protective Equipment (ICD-10-PCS; 2018-09-09)
DX: D61.818 Other pancytopenia (principal); D50.9 Iron deficiency anemia, unspecified; K74.60 Unspecified cirrhosis of liver; E11.9 Type 2 diabetes mellitus without complications; E03.9 Hypothyroidism, unspecified; I10 Essential (primary) hypertension; E78.00 Pure hypercholesterolemia, unspecified; E78.5 Hyperlipidemia, unspecified; J44.9 Chronic obstructive pulmonary disease, unspecified; H40.9 Unspecified glaucoma; K29.00 Acute gastritis without bleeding; R16.1 Splenomegaly, not elsewhere classified; M06.9 Rheumatoid arthritis, unspecified; F41.9 Anxiety disorder, unspecified; Z87.01 Personal history of pneumonia (recurrent); Z85.038 Personal history of other malignant neoplasm of large intestine; Z92.21 Personal history of antineoplastic chemotherapy; Z90.49 Acquired absence of other specified parts of digestive tract

== ENCOUNTER 2018-09-22 10:02 | Day surgery (SDC) | payer MEDICARE, MEDICAID ==
[2018-09-22 12:24] VITALS: BMI 37.9
[2018-09-22] MEDS ORDERED: Midazolam 2 MG/2 ML VIAL ONE (13:01)
[2018-09-22] MEDS ORDERED: Lidocaine Hydrochloride 1% 10 ML ONE (13:09)
[2018-09-22] MEDS ORDERED: Lidocaine 1% w Epi 1:100,000 Inj ONE (13:10)
[2018-09-22] MEDS ORDERED: Propofol 10 mg/ml Inj (20 ML) ONE (13:23)
--- NOTE | 2018-09-22 13:46 | CP.SDSHP ---
Same Day Surgery H & P - History Proposed Procedure: Port placement Pre-Op Diagnosis: Anemia - Allergies Allergies: Allergies No Known Allergies Allergy (Verified 09/22/18 12:24) - Physical Exam Vital Signs: Vital Signs 09/22/18 09/22/18 12:10 12:20 Temperature 97.8 F Pulse Rate 73 73 Respiratory 18 Rate Blood Pressure 91/57 L O2 Sat by Pulse 100 Oximetry Mental Status: Alert & Oriented x3 Neuro: WNL Heart: WNL Lungs: WNL - Impression Impression: Pt with anemia requiring transfusion. Plan Port placement. Informed consent obtained. Pt. Evaluated Today:Candidate for Anesthesia & Procedure: Yes (ASA 3 Malampati 3) - Date & Time Date: 09/22/18 Time: 13:00 Short Stay Discharge - Short Stay Discharge Admitting Diagnosis/Reason for Visit: ANEMIA Disposition: HOME/ ROUTINE
--- NOTE | 2018-09-22 13:47 | PCM.SURG1 ---
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 Post-Operative Diagnosis: Anemia Operation Performed: Port placement right IJV. Specimen/Specimens Removed: NONE Estimated Blood Loss: EBL {In ML}: 5 Blood Products Given: N/A Drains Used: No Drains Post-Op Condition: Fair Date of Surgery/Procedure: 09/22/18 Time of Surgery/Procedure: 13:35
[2018-09-22] MEDS ORDERED: Lactated Ringer's 1,000 ML IV SCH (14:00)
[2018-09-22 15:32] VITALS: RESP 18; O2SAT 100
[2018-09-22 16:27] VITALS: BP 97/49; PULSE 69; TEMP 97.9
--- NOTE | 2018-09-23 16:10 | VASCULAR ---
PROCEDURE: Date of procedure: 09/22/2018 Procedure: 1. Placement of a right IJ port catheter with ultrasound and fluoroscopic guidance, CPT 72378 2. Catheter tip confirmation with spot radiograph in the superior vena cava. Medications: The patient was sedated anesthesiologist along with monitoring, Ancef 1 gm, Lidocaine 1% w Epinephrine Fluoroscopic time: 27 seconds Radiation: 4.66 MGy Blood loss: 4 cc HISTORY: Anemia, poor venous access TECHNIQUE: Following informed consent the procedure time-out, patient was placed supine on the interventional table and the right neck and chest were prepped and draped in the usual sterile fashion. Ultrasound showed a compressible right internal jugular vein. After the patient was sedated by the anesthesiologist, the skin anesthetized with 1% lidocaine with epinephrine. Under direct ultrasound guidance, the right internal jugular vein was accessed with micropuncture technique. A guidewire was then advanced under fluoroscopic guidance into the superior vena cava. An image documenting ultrasound guidance for vascular access was permanently saved. The subcutaneous tissue of patient right chest was infiltrated with 1 percent lidocaine with epinephrine. A dermatotomy was made with a 15. Scalpel. The port pocket was then created with blunt dissection using a Tatyana clamp. The port pocket was flushed. A port catheter was then tunneled under the skin and out the venotomy site. The port catheter was flushed, advanced through a peel-away sheath, adjusted for length, and attached to the port. The port was placed in the port pocket and was secured with 2-0 SurgiPro sutures. The port was flushed and locked with heparin. The port pocket was then closed with absorbable 4-0 Polysorb sutures. The port pocket and the venotomy site were reprepped with ChloraPrep. Steri-Strips were then applied to the port incision also venotomy site. A sterile dressing was then applied. Final spot radiograph showed the right IJ port catheter with tip of the port catheter in the superior vena cava. A port is functional and ready for use. IMPRESSION: Placement of right IJ port catheter. The tip of the port is in the superior vena cava.
== END 2018-09-22 17:30 | disposition home or self-care (01) ==
LOC: H.OPSURG 10:02
PROVIDERS: ATTEND Family Medicine
DX: D64.9 Anemia, unspecified (principal); E03.9 Hypothyroidism, unspecified; E11.9 Type 2 diabetes mellitus without complications; I10 Essential (primary) hypertension
CPT/HCPCS: 36561; 76937; 76942; 82948; A4310; C1751; J0690; J2250; J2704; J3010; J7120

== ENCOUNTER 2018-10-07 11:06 | Observation (INO) | payer MEDICARE, MEDICAID ==
[2018-10-07 11:06] VITALS: BMI 37.9
--- NOTE | 2018-10-07 12:07 | ED PDOC ---
HPI: General Adult Time Seen by Provider: 10/07/18 11:19 Chief Complaint (Nursing): Abnormal Labs History Per: Patient (sent by PMD because she is anemic and needs blood transfuion) Past Medical History Reviewed: Historical Data Vital Signs: Last Vital Signs Temp 98 F 10/07/18 11:25 Pulse 85 10/07/18 11:25 Resp 18 10/07/18 11:25 BP 104/70 10/07/18 11:25 Pulse Ox 99 10/07/18 11:25 - Medical History PMH: Anemia, Anxiety, Arthritis, Asthma, COPD (asthma), Depression, Diabetes, Gastritis, HTN, Hypercholesterolemia, Hyperlipidemia, Hypothyroidism, Malignancy (colon cancer in remission 2005), Obstructive Bowel (small bowel obstruction), Peripheral Edema, Rheumatoid Arthritis Denies: Bronchitis, Deep Vein Thrombosis, Hepatitis, HIV, Hyperthyroidism, Chronic Kidney Disease, Seizures, Sexually Transmitted Disease - Surgical History Surgical History: Appendectomy, Cholecystectomy, Hernia Repair Denies: Pacemaker - Family History Family History: States: Unknown Family Hx, Hypertension - Immunization History Hx Tetanus Toxoid Vaccination: No Hx Influenza Vaccination: Yes Hx Pneumococcal Vaccination: No - Home Medications Home Medications: Ambulatory Orders Medication Instructions Recorded Atorvastatin [Lipitor] 20 mg PO DAILY 06/25/18 Gabapentin [Neurontin] 300 mg PO Q8 06/25/18 Cyanocobalamin [Vitamin B12 1000 1,000 mcg PO DAILY 07/21/18 mcg Tab] Ferrous Sulfate 325 mg PO Q8 07/21/18 Levothyroxine [Synthroid] 175 mcg PO DAILY 07/21/18 Sucralfate [Carafate Oral Susp] 10 ml PO TID 07/21/18 Ascorbic Acid [Vitamin C 500 mg 1 tab PO DAILY 07/30/18 Tab] Omeprazole 40 mg PO DAILY 09/04/18 Spironolactone [Aldactone] 50 mg PO DAILY tab 09/09/18 Insulin Glargine,Hum.rec.anlog 34 unit SQ HS 09/22/18 [Basaglar Kwikpen U-100] Furosemide [Lasix] 40 mg PO DAILY 10/07/18 Insulin Lispro Protamin/Lispro 15 unit SC BID 10/07/18 [Humalog Mix 75-25 Kwikpen] Suvorexant [Belsomra] 20 mg PO HS 10/07/18 Telmisartan [Micardis] 40 mg PO DAILY 10/07/18 - Allergies Allergies/Adverse Reactions: Allergies Allergy/AdvReac Type Severity Reaction Status Date / Time No Known Allergies Allergy Verified 09/22/18 12:24 Review of Systems ROS Statement: Except As Marked, All Systems Reviewed And Found Negative Constitutional: Negative for: Fever Eyes: Negative for: Pain Gastrointestinal: Negative for: Nausea, Vomiting Genitourinary Female: Negative for: Dysuria Physical Exam - Reviewed Nursing Documentation Reviewed: Yes Vital Signs Reviewed: Yes - Physical Exam Appears: Positive for: Well, Non-toxic, No Acute Distress Head Exam: Positive for: ATRAUMATIC, NORMAL INSPECTION, NORMOCEPHALIC Skin: Positive for: Normal Color, Warm, DRY Eye Exam: Positive for: EOMI, Normal appearance, PERRL ENT: Positive for: Normal ENT Inspection Neck: Positive for: Normal, Painless ROM Cardiovascular/Chest: Positive for: Regular Rate, Rhythm Respiratory: Positive for: CNT, Normal Breath Sounds Gastrointestinal/Abdominal: Positive for: Normal Exam, Soft Back: Positive for: Normal Inspection Extremity: Positive for: Normal ROM Neurological/Psych: Positive for: Awake, Alert, Normal Tone - Laboratory Results Result Diagrams: 10/07/18 12:15 10/07/18 12:15 - ECG O2 Sat by Pulse Oximetry: 99 Disposition - Clinical Impression Clinical Impression: Anemia - Patient ED Disposition Is Patient to be Admitted: Transfer of Care Doctor Will See Patient In The: Hospital - Disposition Disposition: Transfer of Care Disposition Time: 13:20 Condition: STABLE Instructions: Anemia Caused by Low Iron Forms: [employer] (Emirati) - Pt Status Changed To: Hospital Disposition Of: Observation - POA Present On Arrival: None
[2018-10-07 12:28] LABS: BASO % 1.2 % (0.0-2.0); EOS # 0.1 K/uL (0.0-0.7); EOS % 2.7 % (0.0-4.0); LYMPH # 0.5 K/uL (1.0-4.3); LYMPH % 18.3 % (20.0-40.0); MEAN CELL VOLUME 104.9 fl (81.0-99.0); MEAN CORPUSCULAR HEMOGLOBIN 32.4 pg (27.0-31.0); MEAN CORPUSCULAR HGB CONC 30.9 g/dL (33.0-37.0); MEAN PLATELET VOLUME 10.7 fl (7.2-11.7); MONO # 0.1 K/uL (0.0-0.8); MONO % 5.4 % (0.0-10.0); NEUT # 1.9 K/uL (1.8-7.0); NEUT % 72.4 % (50.0-75.0); NRBC % 0.1 % (0.0-0.0); RBC 1.9 Mil/uL (3.80-5.20); RED CELL DISTRIBUTION WIDTH 18.7 % (11.5-14.5); WHITE BLOOD COUNT 2.7 K/uL (4.8-10.8)
--- NOTE | 2018-10-07 12:37 | RAD ---
HISTORY: anemia and dizziness COMPARISON: Chest x-ray performed 09/13/18 TECHNIQUE: Chest, one view. FINDINGS: Right IJ approach central venous catheter extends to the right atrium. Left-sided PICC extends expected location of the SVC. LUNGS: Moderate interstitial prominence may reflect infection or edema. Please note that chest x-ray has limited sensitivity for the detection of pulmonary masses. PLEURA: No significant pleural effusion identified. No definite pneumothorax . CARDIOVASCULAR: Cardiomegaly. Atherosclerotic calcification OSSEOUS STRUCTURES: No acute osseous abnormality is detected. VISUALIZED UPPER ABDOMEN: Unremarkable. OTHER FINDINGS: None. IMPRESSION: Right IJ approach central venous catheter extends to the right atrium. Left-sided PICC extends expected location of the SVC. Moderate interstitial prominence may reflect infection or edema.
[2018-10-07 12:38] LABS: HEMOGLOBIN 6.2 g/dL (12.0-16.0)
[2018-10-07 12:47] LABS: BLOOD UREA NITROGEN 10 mg/dl (7-17); CALCIUM 8.2 mg/dL (8.4-10.2); GFR NON-AFRICAN AMERICAN > 60
[2018-10-07] MEDS: Insulin Lispro (humaLOG) 100 Units/ml Inj SC SCH (16:38)
[2018-10-07] MEDS: Sucralfate 1 gm/10 ml Oral Susp UD PO SCH (16:40)
--- NOTE | 2018-10-07 19:45 | CARD ---
APPROVED REPORT Date of service: 10/07/2018 EKG Measurement Heart [id number] IN [id number] [id number] <Conclusion> Normal sinus rhythm ST & T wave abnormality, consider inferolateral ischemia Prolonged QT Abnormal ECG
[2018-10-07] MEDS ORDERED: Insulin Detemir 100 Units/ml Inj SC SCH (22:00)
[2018-10-08] MEDS: Sucralfate 1 gm/10 ml Oral Susp UD PO SCH ×2 (06:41→10:54)
[2018-10-08 07:42] VITALS: BP 109/57; PULSE 77; RESP 20; TEMP 97.5; O2SAT 100
[2018-10-08] MEDS: Insulin Lispro (humaLOG) 100 Units/ml Inj SC SCH ×2 (08:45→09:04)
[2018-10-08] MEDS ORDERED: Pantoprazole 40 mg EC Tab PO SCH (09:00)
[2018-10-08] MEDS ORDERED: Levothyroxine 175 MCG TAB PO SCH (09:00)
--- NOTE | 2018-10-08 09:51 | CP.PCM.CON ---
History of Present Illness - History of Present Illness History of Present Illness: 63 yo female with diarrhea and anemia with Hgb about 6 . Has had multiple admissions for anemia in the past. 2 units PRBC ordered. Review of Systems - Constitutional Constitutional: absent: Chills - EENT Eyes: absent: Blurred Vision Ears: absent: Decreased Hearing Nose/Mouth/Throat: absent: Epistaxis - Cardiovascular Cardiovascular: absent: Chest Pain - Respiratory Respiratory: absent: Cough - Gastrointestinal Gastrointestinal: absent: Abdominal Pain - Genitourinary Genitourinary: absent: Change in Urinary Stream Past Patient History - Past Medical History & Family History Past Medical History?: Yes - Past Social History Smoking Status: Never Smoked - CARDIAC Hx Cardiac Disorders: Yes Hx Hypercholesterolemia: Yes Hx Hypertension: Yes Hx Peripheral Edema: Yes - PULMONARY Hx Respiratory Disorders: No - NEUROLOGICAL Hx Neurological Disorder: No Hx Seizures: No - HEENT Hx HEENT Problems: Yes Hx Cataracts: Yes (right eye) Hx Glaucoma: Yes (left eye) - RENAL Hx Chronic Kidney Disease: No - ENDOCRINE/METABOLIC Hx Endocrine Disorders: Yes Hx Diabetes Mellitus Type 2: Yes Hx Hypothyroidism: Yes - HEMATOLOGICAL/ONCOLOGICAL Hx Blood Disorders: Yes Hx Cancer: Yes Hx Chemotherapy: Yes - INTEGUMENTARY Hx Dermatological Problems: No - MUSCULOSKELETAL/RHEUMATOLOGICAL Hx Musculoskeletal Disorders: Yes Hx Arthritis: Yes Hx Falls: Yes - GASTROINTESTINAL Hx Gastrointestinal Disorders: Yes Hx Bowel Surgery: Yes Hx Gastritis: Yes Hx Gastroesophageal Reflux: Yes Hx Liver Failure: Yes - GENITOURINARY/GYNECOLOGICAL Hx Genitourinary Disorders: Yes Hx Sexually Transmitted Disorders: No Hx Urinary Tract Infection: Yes - PSYCHIATRIC Hx Psychophysiologic Disorder: Yes Hx Anxiety: Yes Hx Depression: Yes Hx Substance Use: No - SURGICAL HISTORY Hx Surgeries: Yes Hx Appendectomy: Yes Hx Cholecystectomy: Yes Hx Herniorrhaphy: Yes Hx Musculoskeletal Surgery: Yes Other/Comment: left foot surgery x4 - ANESTHESIA Hx Anesthesia: Yes Hx Anesthesia Reactions: No Hx Malignant Hyperthermia: No Has any member of the family had a problem w/ anesthesia?: No Meds Allergies/Adverse Reactions: Allergies Allergy/AdvReac Type Severity Reaction Status Date / Time No Known Allergies Allergy Verified 09/22/18 12:24 - Medications Medications: Current Medications Ascorbic Acid (Vitamin C 500 Mg Tab) 500 mg PO DAILY [facility] Last Admin: 10/08/18 09:02 Dose: 500 mg Atorvastatin Calcium (Lipitor) 20 mg PO DAILY [facility] Last Admin: 10/08/18 09:02 Dose: 20 mg Cyanocobalamin (Vitamin B12 1000 Mcg Tab) 1,000 mcg PO DAILY [facility] Last Admin: 10/08/18 09:01 Dose: 1,000 mcg Ferrous Sulfate (Feosol) 325 mg PO Q8 [facility] Last Admin: 10/08/18 08:42 Dose: 325 mg Furosemide (Lasix) 40 mg PO DAILY [facility] Last Admin: 10/08/18 09:02 Dose: 40 mg Gabapentin (Neurontin) 300 mg PO Q8 [facility] Last Admin: 10/08/18 09:01 Dose: 300 mg Insulin Detemir (Levemir) 34 units SC HS [facility] Last Admin: 10/07/18 21:31 Dose: 34 units Insulin Human Lispro (Humalog) 15 units SC ACB [facility] Last Admin: 10/08/18 09:04 Dose: Not Given Levothyroxine Sodium (Synthroid) 175 mcg PO DAILY@0630 [facility] Last Admin: 10/08/18 09:02 Dose: 175 mcg Losartan Potassium (Cozaar) 50 mg PO DAILY [facility] Last Admin: 10/08/18 08:45 Dose: 50 mg Pantoprazole Sodium (Protonix Ec Tab) 40 mg PO DAILY [facility] Last Admin: 10/08/18 09:02 Dose: 40 mg Spironolactone (Aldactone) 50 mg PO DAILY [facility] Last Admin: 10/08/18 09:01 Dose: 50 mg Sucralfate (Carafate Oral Susp) 1 gm PO TIDAC [facility] Last Admin: 10/08/18 06:41 Dose: 1 gm Tramadol HCl (Ultram) 50 mg PO Q6 PRN PRN Reason: Pain, moderate (4-7) Last Admin: 10/07/18 22:13 Dose: 50 mg Physical Exam - Constitutional Appears: No Acute Distress - Head Exam Head Exam: ATRAUMATIC - Eye Exam Eye Exam: Normal appearance - ENT Exam ENT Exam: Mucous Membranes Moist - Neck Exam Neck exam: Positive for: Normal Inspection - Respiratory Exam Respiratory Exam: Clear to Auscultation Bilateral - Cardiovascular Exam Cardiovascular Exam: REGULAR RHYTHM, +S1, +S2 - GI/Abdominal Exam GI & Abdominal Exam: Distended, Normal Bowel Sounds - Back Exam Back exam: NORMAL INSPECTION - Neurological Exam Neurological exam: Oriented x3 - Skin Skin Exam: Pallor Results - Vital Signs Recent Vital Signs: Last Vital Signs Temp 97.5 F L 10/08/18 07:41 Pulse 77 10/08/18 08:45 Resp 20 10/08/18 07:41 BP 109/57 L 10/08/18 09:02 Pulse Ox 100 10/08/18 07:41 - Labs Result Diagrams: 10/07/18 12:15 10/07/18 12:15 Labs: Laboratory Results - last 24 hr 10/07/18 10/07/18 10/07/18 12:15 12:15 12:15 WBC 2.7 L RBC 1.90 L Hgb 6.2 L* D Hct 19.9 L MCV 104.9 H D MCH 32.4 H MCHC 30.9 L RDW 18.7 H Plt Count 67 L D MPV 10.7 Neut % (Auto) 72.4 Lymph % (Auto) 18.3 L [place] % (Auto) 5.4 Eos % (Auto) 2.7 Baso % (Auto) 1.2 Neut # (Auto) 1.9 Lymph # (Auto) 0.5 L [place] # (Auto) 0.1 Eos # (Auto) 0.1 Baso # (Auto) 0.0 Sodium 136 Potassium 3.9 Chloride 109 H Carbon Dioxide 21 L Anion Gap 10 BUN 10 Creatinine 0.5 L Est GFR ( Amer) > 60 Est GFR (Non-Af Amer) > 60 POC Glucose (mg/dL) Random Glucose 171 H Calcium 8.2 L Blood Type A POSITIVE Antibody Screen Negative Crossmatch See Detail BBK History Checked Patient has bt 10/07/18 10/07/18 10/08/18 15:25 21:16 05:32 WBC RBC Hgb Hct MCV MCH MCHC RDW Plt Count MPV Neut % (Auto) Lymph % (Auto) [place] % (Auto) Eos % (Auto) Baso % (Auto) Neut # (Auto) Lymph # (Auto) [place] # (Auto) Eos # (Auto) Baso # (Auto) Sodium Potassium Chloride Carbon Dioxide Anion Gap BUN Creatinine Est GFR ( Amer) Est GFR (Non-Af Amer) POC Glucose (mg/dL) 238 H 169 H 56 L Random Glucose Calcium Blood Type Antibody Screen Crossmatch BBK History Checked 10/08/18 06:33 WBC RBC Hgb Hct MCV MCH MCHC RDW Plt Count MPV Neut % (Auto) Lymph % (Auto) [place] % (Auto) Eos % (Auto) Baso % (Auto) Neut # (Auto) Lymph # (Auto) [place] # (Auto) Eos # (Auto) Baso # (Auto) Sodium Potassium Chloride Carbon Dioxide Anion Gap BUN Creatinine Est GFR ( Amer) Est GFR (Non-Af Amer) POC Glucose (mg/dL) 148 H Random Glucose Calcium Blood Type Antibody Screen Crossmatch BBK History Checked Assessment & Plan - Assessment and Plan (Free Text) Assessment: Ongoing w/u for anemia. Will get UGI with SB follow through and then capsule endoscopy as outpatient. Transfuse 2 units PRBC today. Stool studies sent to evaluate diarrhea.
[2018-10-08 11:40] LABS: HEMOGLOBIN 8.3 g/dL (12.0-16.0); MEAN CELL VOLUME 96.8 fl (81.0-99.0); MEAN CORPUSCULAR HEMOGLOBIN 31.2 pg (27.0-31.0); MEAN CORPUSCULAR HGB CONC 32.2 g/dL (33.0-37.0); RBC 2.68 Mil/uL (3.80-5.20); RED CELL DISTRIBUTION WIDTH 23.6 % (11.5-14.5); WHITE BLOOD COUNT 3.2 K/uL (4.8-10.8)
--- NOTE | 2018-10-08 12:14 | CP.PCM.CON ---
History of Present Illness - History of Present Illness History of Present Illness: 63 year old female with a history of DM, HTN, HL, hypothyroid, colon cancer s/p surgery and adjuvant chemotherapy in 2005, presenting with abdominal pain, found to have pancytopenia with anemia. The patient is known to me from her prior hospitalization. At the time she was GI bleeding and found to have iron deficiency anemia. She was treated with PRBC transfusion and IV iron. She notes to experiencing intermittent bloody bowel movement mixed with dark black stools. She has had multiple endoscopies and notes to recent approval by insurance for capsule endoscopy. Past medical history: DM, HTN, HL, hypothyroid, colon cancer s/p surgery and adjuvant chemotherapy in 2005. Past surgical history: hemicolectomy, cholecystectomy, hernia repair Family history: Denies hematologic and oncologic problems Social history: Denies tobacco, alcohol, and illicit drug use. Allergies: NKA Review of systems: All remaining review of systems including HEENT, cardiovascular, respiratory, gastrointestinal, genitourinary, musculoskeletal, dermatologic, neurologic, and psychiatric are negative unless mentioned in the HPI Past Patient History - Past Medical History & Family History Past Medical History?: Yes - Past Social History Smoking Status: Never Smoked - CARDIAC Hx Cardiac Disorders: Yes Hx Hypercholesterolemia: Yes Hx Hypertension: Yes Hx Peripheral Edema: Yes - PULMONARY Hx Respiratory Disorders: No - NEUROLOGICAL Hx Neurological Disorder: No Hx Seizures: No - HEENT Hx HEENT Problems: Yes Hx Cataracts: Yes (right eye) Hx Glaucoma: Yes (left eye) - RENAL Hx Chronic Kidney Disease: No - ENDOCRINE/METABOLIC Hx Endocrine Disorders: Yes Hx Diabetes Mellitus Type 2: Yes Hx Hypothyroidism: Yes - HEMATOLOGICAL/ONCOLOGICAL Hx Blood Disorders: Yes Hx Cancer: Yes Hx Chemotherapy: Yes - INTEGUMENTARY Hx Dermatological Problems: No - MUSCULOSKELETAL/RHEUMATOLOGICAL Hx Musculoskeletal Disorders: Yes Hx Arthritis: Yes Hx Falls: Yes - GASTROINTESTINAL Hx Gastrointestinal Disorders: Yes Hx Bowel Surgery: Yes Hx Gastritis: Yes Hx Gastroesophageal Reflux: Yes Hx Liver Failure: Yes - GENITOURINARY/GYNECOLOGICAL Hx Genitourinary Disorders: Yes Hx Sexually Transmitted Disorders: No Hx Urinary Tract Infection: Yes - PSYCHIATRIC Hx Psychophysiologic Disorder: Yes Hx Anxiety: Yes Hx Depression: Yes Hx Substance Use: No - SURGICAL HISTORY Hx Surgeries: Yes Hx Appendectomy: Yes Hx Cholecystectomy: Yes Hx Herniorrhaphy: Yes Hx Musculoskeletal Surgery: Yes Other/Comment: left foot surgery x4 - ANESTHESIA Hx Anesthesia: Yes Hx Anesthesia Reactions: No Hx Malignant Hyperthermia: No Has any member of the family had a problem w/ anesthesia?: No Meds Allergies/Adverse Reactions: Allergies Allergy/AdvReac Type Severity Reaction Status Date / Time No Known Allergies Allergy Verified 09/22/18 12:24 - Medications Medications: Current Medications Ascorbic Acid (Vitamin C 500 Mg Tab) 500 mg PO DAILY [facility] Last Admin: 10/08/18 09:02 Dose: 500 mg Atorvastatin Calcium (Lipitor) 20 mg PO DAILY [facility] Last Admin: 10/08/18 09:02 Dose: 20 mg Cyanocobalamin (Vitamin B12 1000 Mcg Tab) 1,000 mcg PO DAILY [facility] Last Admin: 10/08/18 09:01 Dose: 1,000 mcg Ferrous Sulfate (Feosol) 325 mg PO Q8 [facility] Last Admin: 10/08/18 08:42 Dose: 325 mg Furosemide (Lasix) 40 mg PO DAILY [facility] Last Admin: 10/08/18 09:02 Dose: 40 mg Gabapentin (Neurontin) 300 mg PO Q8 [facility] Last Admin: 10/08/18 09:01 Dose: 300 mg Insulin Detemir (Levemir) 34 units SC HS [facility] Last Admin: 10/07/18 21:31 Dose: 34 units Insulin Human Lispro (Humalog) 15 units SC ACB [facility] Last Admin: 10/08/18 08:45 Dose: Not Given Levothyroxine Sodium (Synthroid) 175 mcg PO DAILY@0630 [facility] Last Admin: 10/08/18 09:02 Dose: 175 mcg Losartan Potassium (Cozaar) 50 mg PO DAILY [facility] Last Admin: 10/08/18 08:45 Dose: 50 mg Pantoprazole Sodium (Protonix Ec Tab) 40 mg PO DAILY [facility] Last Admin: 10/08/18 09:02 Dose: 40 mg Spironolactone (Aldactone) 50 mg PO DAILY [facility] Last Admin: 10/08/18 09:01 Dose: 50 mg Sucralfate (Carafate Oral Susp) 1 gm PO TIDAC [facility] Last Admin: 10/08/18 10:54 Dose: 1 gm Tramadol HCl (Ultram) 50 mg PO Q6 PRN PRN Reason: Pain, moderate (4-7) Last Admin: 10/07/18 22:13 Dose: 50 mg Physical Exam - Head Exam Head Exam: ATRAUMATIC - Eye Exam Eye Exam: Normal appearance - ENT Exam ENT Exam: Mucous Membranes Dry - Respiratory Exam Respiratory Exam: NORMAL BREATHING PATTERN - Cardiovascular Exam Cardiovascular Exam: +S1, +S2 - GI/Abdominal Exam GI & Abdominal Exam: Normal Bowel Sounds - Extremities Exam Extremities exam: Positive for: pedal edema - Neurological Exam Neurological exam: Oriented x3 - Psychiatric Exam Psychiatric exam: Normal Affect, Normal Mood - Skin Skin Exam: Warm Results - Vital Signs Recent Vital Signs: Last Vital Signs Temp 97.5 F L 10/08/18 07:41 Pulse 77 10/08/18 08:45 Resp 20 10/08/18 07:41 BP 109/57 L 10/08/18 09:02 Pulse Ox 100 10/08/18 07:41 - Labs Result Diagrams: 10/08/18 11:25 10/07/18 12:15 Labs: Laboratory Results - last 24 hr 10/07/18 10/07/18 10/07/18 12:15 12:15 12:15 WBC 2.7 L RBC 1.90 L Hgb 6.2 L* D Hct 19.9 L MCV 104.9 H D MCH 32.4 H MCHC 30.9 L RDW 18.7 H Plt Count 67 L D MPV 10.7 Neut % (Auto) 72.4 Lymph % (Auto) 18.3 L [facility] % (Auto) 5.4 Eos % (Auto) 2.7 Baso % (Auto) 1.2 Neut # (Auto) 1.9 Lymph # (Auto) 0.5 L [facility] # (Auto) 0.1 Eos # (Auto) 0.1 Baso # (Auto) 0.0 Sodium 136 Potassium 3.9 Chloride 109 H Carbon Dioxide 21 L Anion Gap 10 BUN 10 Creatinine 0.5 L Est GFR ( Amer) > 60 Est GFR (Non-Af Amer) > 60 POC Glucose (mg/dL) Random Glucose 171 H Calcium 8.2 L Blood Type A POSITIVE Antibody Screen Negative Crossmatch See Detail BBK History Checked Patient has bt 10/07/18 10/07/18 10/08/18 15:25 21:16 05:32 WBC RBC Hgb Hct MCV MCH MCHC RDW Plt Count MPV Neut % (Auto) Lymph % (Auto) [facility] % (Auto) Eos % (Auto) Baso % (Auto) Neut # (Auto) Lymph # (Auto) [facility] # (Auto) Eos # (Auto) Baso # (Auto) Sodium Potassium Chloride Carbon Dioxide Anion Gap BUN Creatinine Est GFR ( Amer) Est GFR (Non-Af Amer) POC Glucose (mg/dL) 238 H 169 H 56 L Random Glucose Calcium Blood Type Antibody Screen Crossmatch BBK History Checked 10/08/18 10/08/18 10/08/18 06:33 10:44 11:25 WBC 3.2 L RBC 2.68 L Hgb 8.3 L D Hct 25.9 L MCV 96.8 D MCH 31.2 H MCHC 32.2 L RDW 23.6 H Plt Count 73 L MPV Neut % (Auto) Lymph % (Auto) [facility] % (Auto) Eos % (Auto) Baso % (Auto) Neut # (Auto) Lymph # (Auto) [facility] # (Auto) Eos # (Auto) Baso # (Auto) Sodium Potassium Chloride Carbon Dioxide Anion Gap BUN Creatinine Est GFR ( Amer) Est GFR (Non-Af Amer) POC Glucose (mg/dL) 148 H 213 H Random Glucose Calcium Blood Type Antibody Screen Crossmatch BBK History Checked Assessment & Plan (1) Pancytopenia Assessment and Plan: liver cirrhosis with splenomegaly splenic sequestration prior iron deficiency; f/u ferritin 2U PRBC GI evaluation will consider bone marrow evaluation as outpatient depending on capsule endoscopy Status: Acute
== END 2018-10-08 16:55 | disposition home health service (06) ==
LOC: H.ER 11:06 → H.ERHOLD 13:21 → H.MEDSURG1 14:51
PROVIDERS: ADMIT Family Medicine; ATTEND Family Medicine
DX: D50.9 Iron deficiency anemia, unspecified (principal); D61.818 Other pancytopenia; K74.60 Unspecified cirrhosis of liver; R16.1 Splenomegaly, not elsewhere classified; E03.9 Hypothyroidism, unspecified; K21.9 Gastro-esophageal reflux disease without esophagitis; K29.70 Gastritis, unspecified, without bleeding; E11.9 Type 2 diabetes mellitus without complications; E78.00 Pure hypercholesterolemia, unspecified; I10 Essential (primary) hypertension; E78.5 Hyperlipidemia, unspecified; J44.9 Chronic obstructive pulmonary disease, unspecified; M06.9 Rheumatoid arthritis, unspecified; F41.9 Anxiety disorder, unspecified; Z85.038 Personal history of other malignant neoplasm of large intestine; Z87.440 Personal history of urinary (tract) infections; Z92.21 Personal history of antineoplastic chemotherapy
CPT/HCPCS: 36415; 36430; 71045; 80048; 82948; 85025; 85027; 86850; 86900; 86920; 87230; 93005; 99283; G0328; G0378; P9051

== ENCOUNTER 2018-11-01 20:16 | Inpatient (IN) | payer MEDICARE, MEDICAID ==
[2018-11-01 20:17] VITALS: BMI 37.9
--- NOTE | 2018-11-01 20:53 | ED PDOC ---
HPI: Chest Pain Time Seen by Provider: 11/01/18 20:39 Chief Complaint (Nursing): Chest Pain History Per: Patient Onset/Duration Of Symptoms: Days (2) Current Symptoms Are (Timing): Intermittent Episodes Severity: Moderate Quality: Tightness Associated Symptoms: Dyspnea Additional Complaint(s): Chest and throat tightness assoc with SOB. Intermittent episodes x 2 days. Denies cough or fever. Family states pt has vomited blood today, small amount. Denies abd pain or dark or bloody stool. Past Medical History Vital Signs: Last Vital Signs Temp 98 F 11/01/18 20:26 Pulse 96 H 11/01/18 20:26 Resp 18 11/01/18 20:26 BP 115/48 L 11/01/18 20: Pulse Ox 100 11/01/18 20:26 Primary Care Provider: Corby Quispe - Medical History PMH: Anemia, Anxiety, Arthritis, Asthma, COPD (asthma), Depression, Diabetes, Gastritis, HTN, Hypercholesterolemia, Hyperlipidemia, Hypothyroidism, Malignancy (colon cancer in remission 2005), Obstructive Bowel (small bowel obstruction), Peripheral Edema, Rheumatoid Arthritis Denies: Bronchitis, Deep Vein Thrombosis, Hepatitis, HIV, Hyperthyroidism, Chronic Kidney Disease, Seizures, Sexually Transmitted Disease - Surgical History Surgical History: Appendectomy, Cholecystectomy, Hernia Repair Denies: Pacemaker - Family History Family History: States: Unknown Family Hx, Hypertension - Immunization History Hx Tetanus Toxoid Vaccination: No Hx Influenza Vaccination: Yes Hx Pneumococcal Vaccination: No - Home Medications Home Medications: Ambulatory Orders Medication Instructions Recorded Atorvastatin [Lipitor] 20 mg PO DAILY 06/25/18 Gabapentin [Neurontin] 300 mg PO Q8 06/25/18 Cyanocobalamin [Vitamin B12 1000 1,000 mcg PO DAILY 07/21/18 mcg Tab] Ferrous Sulfate 325 mg PO Q8 07/21/18 Levothyroxine [Synthroid] 175 mcg PO DAILY 07/21/18 Sucralfate [Carafate Oral Susp] 10 ml PO TID 07/21/18 Ascorbic Acid [Vitamin C 500 mg 1 tab PO DAILY 07/30/18 Tab] Omeprazole 40 mg PO DAILY 09/04/18 Spironolactone [Aldactone] 50 mg PO DAILY tab 09/09/18 Insulin Glargine,Hum.rec.anlog 34 unit SQ HS 09/22/18 [Basaglar Kwikpen U-100] Furosemide [Lasix] 40 mg PO DAILY 10/07/18 Insulin Lispro Protamin/Lispro 15 unit SC BID 10/07/18 [Humalog Mix 75-25 Kwikpen] Suvorexant [Belsomra] 20 mg PO HS 10/07/18 Telmisartan [Micardis] 40 mg PO DAILY 10/07/18 - Allergies Allergies/Adverse Reactions: Allergies Allergy/AdvReac Type Severity Reaction Status Date / Time No Known Allergies Allergy Verified 09/22/18 12:24 Review of Systems ROS Statement: Except As Marked, All Systems Reviewed And Found Negative Cardiovascular: Positive for: Chest Pain Respiratory: Positive for: Shortness of Breath Gastrointestinal: Positive for: Hematemesis. Negative for: Abdominal Pain Physical Exam - Reviewed Nursing Documentation Reviewed: Yes Vital Signs Reviewed: Yes - Physical Exam Appears: Positive for: Non-toxic, No Acute Distress Head Exam: Positive for: ATRAUMATIC, NORMAL INSPECTION, NORMOCEPHALIC Skin: Positive for: Warm, Pallor Eye Exam: Positive for: EOMI, PERRL. Negative for: Normal appearance (conjunctivae pale) ENT: Positive for: Normal ENT Inspection Neck: Positive for: Normal, Painless ROM Cardiovascular/Chest: Positive for: Regular Rate, Rhythm Respiratory: Positive for: CNT, Normal Breath Sounds Gastrointestinal/Abdominal: Positive for: Normal Exam, Soft Back: Positive for: Normal Inspection Rectal: Positive for: Other (Scant brown stool). Negative for: Mass, Tenderness Extremity: Positive for: Pedal Edema. Negative for: Calf Tenderness Neurological/Psych: Positive for: Awake, Alert, Normal Tone - Laboratory Results Result Diagrams: 11/01/18 21:19 11/01/18 21:19 - ECG O2 Sat by Pulse Oximetry: 100 Disposition - Clinical Impression Clinical Impression: GI bleed, Anemia, Colon cancer - Patient ED Disposition Is Patient to be Admitted: Yes - Disposition Disposition Time: 21:54 Condition: FAIR Forms: [employer] ([place]) - Pt Status Changed To: Hospital Disposition Of: Inpatient - Admit Certification Admit to Inpatient:: After my assessment, the patient will require hospitalization for at least two midnights. This is because of the severity of symptoms shown, intensity of services needed, and/or the medical risk in this patient being treated as an outpatient. - POA Present On Arrival: None
[2018-11-01 21:34] LABS: INR 1.3; PROTHROMBIN TIME 14.3 Seconds (9.8-13.1)
[2018-11-01 21:36] LABS: ALB/GLOB RATIO 0.9 (1.0-2.1); ALBUMIN 2.8 g/dL (3.5-5.0); ALT/SGPT 22 U/L (9-52); AST/SGOT 24 U/L (14-36); BLOOD UREA NITROGEN 16 mg/dl (7-17); CALCIUM 7.8 mg/dL (8.4-10.2); GFR NON-AFRICAN AMERICAN > 60
[2018-11-01 21:37] LABS: BASO % 0.8 % (0.0-2.0); EOS # 0.1 K/uL (0.0-0.7); EOS % 3.4 % (0.0-4.0); LYMPH # 0.5 K/uL (1.0-4.3); LYMPH % 15.3 % (20.0-40.0); MEAN CORPUSCULAR HGB CONC 30.7 g/dL (33.0-37.0); MEAN PLATELET VOLUME 10.8 fl (7.2-11.7); MONO # 0.2 K/uL (0.0-0.8); MONO % 5.7 % (0.0-10.0); NEUT # 2.5 K/uL (1.8-7.0); NEUT % 74.8 % (50.0-75.0); NRBC % 0.2 % (0.0-0.0); RBC 1.37 Mil/uL (3.80-5.20); RED CELL DISTRIBUTION WIDTH 18.7 % (11.5-14.5); WHITE BLOOD COUNT 3.3 K/uL (4.8-10.8)
[2018-11-01 21:39] LABS: HEMOGLOBIN 3.8 g/dL (12.0-16.0); MEAN CELL VOLUME 91.2 fl (81.0-99.0)
[2018-11-01] MEDS ORDERED: Iodixanol 320 MG/ML 100 ML BOTTLE IV ONE (23:01)
[2018-11-01] MEDS ORDERED: DiphenhydrAMINE 50 mg/ml Inj IVP STA (23:20)
--- NOTE | 2018-11-01 23:22 | ED PDOC ---
ED Additional Note - Date & Time of Evaluation Date of Evaluation: 11/01/18 Time of Evaluation: 23:22 - Physician Additional Note Physician Additional Note: Patient admitted to the facility but still in ER pending bed. RN informed provider patient states her tongue feels "tingly". Patient just received contrast for CT Chest. no sob/chest pain or swelling. Benadryl 25m IV given. I will follow up on CTA. 0019 CTA Chest FINDINGS: PULMONARY ARTERIES No evidence of central or segmental pulmonary embolism is seen. AORTA There is no evidence for aneurysm or dissection of the thoracic aorta. LUNGS There is evidence for pulmonary venous congestion compatible with CHF. Diffuse pulmonary edema is seen. PLEURAL SPACES Small bilateral pleural effusions are noted. HEART The cardiac silhouette is moderately enlarged. LYMPH NODES No lymphadenopathy is evident. BONES No focal osseous abnormality or acute fracture. UPPER ABDOMEN The liver is shrunken and markedly lobulated consistent with advanced cirrhosis. No evidence of hepatic mass. The spleen is enlarged. Diffuse abdominal ascites is seen. IMPRESSION: 1. The cardiac silhouette is moderately enlarged. 2. There is evidence for pulmonary venous congestion compatible with CHF. 3. Small bilateral pleural effusions are noted. 4. Diffuse pulmonary edema is seen. 5. The liver is shrunken and markedly lobulated consistent with advanced cirrho sis. No evidence of hepatic mass. 6. The spleen is enlarged. 7. Diffuse abdominal ascites is seen. 8. No evidence of PE.
--- NOTE | 2018-11-02 10:43 | CT ---
Date of service: 11/01/2018 PROCEDURE: CT Chest with contrast (Pulmonary Angiogram) HISTORY: Chest pain h/o colon Ca r/o PE COMPARISON: None available. TECHNIQUE: Axial computed tomography images were obtained of the chest in the pulmonary arterial phase of enhancement. Coronal and sagittal reformatted images were created and reviewed. Intravenous contrast dose: 100 cc Visipaque 320. Mean Hounsfield value in the main pulmonary artery: 256.71 Radiation dose: Total exam DLP = 689.25 mGy-cm. This CT exam was performed using one or more of the following dose reduction techniques: Automated exposure control, adjustment of the mA and/or kV according to patient size, and/or use of iterative reconstruction technique. FINDINGS: PULMONARY ARTERIES: Unremarkable. No pulmonary embolism. AORTA: No acute findings. No thoracic aortic aneurysm. No atherosclerotic calcification or mural plaque present. LUNGS: Centrilobular emphysematous change. Increased interstitial markings, thickening of interlobular septa suggest a component CHF. PLEURAL SPACES: Small bilateral pleural effusions. HEART: Cardiomegaly, multi chamber enlargement no significant pericardial effusion. LYMPH NODES: Enlarged mediastinal lymph nodes. Paratracheal and mediastinal nodes range from less than 1 cm 2 2 cm. BONES, CHEST WALL: Hemangioma T9 vertebral body unchanged compared to a prior CT of the abdomen and pelvis performed 09/04/2018. No fracture or destructive lesion OTHER FINDINGS: Cirrhotic appearing liver. Splenomegaly. Incompletely visualized apparent low volume ascites. IMPRESSION: Unremarkable CT pulmonary angiogram. No pulmonary embolus. Cardiomegaly/mild CHF. Enlarged mediastinal lymph nodes. Cirrhotic liver/splenomegaly, findings identified previously. Additional benign and/or incidental findings described above. Concordant results (preliminary interpretation) provided by [facility]. Procedure Completed: 23:14. Preliminary Report: Interpreted and electronically signed: 00:10. Final Interpretation: 10:39. November 02, 2018.
--- NOTE | 2018-11-02 13:32 | CARD ---
APPROVED REPORT Date of service: 11/01/2018 EKG Measurement Heart [id number] ND [id number] [id number] <Conclusion> Sinus rhythm with premature atrial complexes ST & T wave abnormality, consider inferolateral ischemia Prolonged QT Abnormal ECG
--- NOTE | 2018-11-02 14:20 | RAD ---
Date of service: 11/01/2018 HISTORY: cough COMPARISON: Frontal chest radiograph 10/07/2018. TECHNIQUE: 1 view obtained. FINDINGS: LUNGS: Stable mild prominence of the interstitial markings is again evident without airspace disease bilaterally. PLEURA: No significant pleural effusion identified, no pneumothorax apparent. CARDIOVASCULAR: No aortic atherosclerotic calcification present. Stable cardiac size. No pulmonary vascular congestion. Left PICC and right central venous port are unchanged in position. OSSEOUS STRUCTURES: No significant abnormalities. VISUALIZED UPPER ABDOMEN: Normal. OTHER FINDINGS: None. IMPRESSION: No definite interval acute cardiopulmonary disease. Mild chronic interstitial pulmonary changes are reiterated. No pulmonary vascular congestion. Right chest port and left PICC unchanged in position.
--- NOTE | 2018-11-02 15:08 | CP.PCM.CON ---
History of Present Illness - History of Present Illness History of Present Illness: One of multiple abdmissions with severe anemia for this patient with cirrhosis of the liver. Came to ER for chest pain. Reports vomiting blood at home and having loose black stools. Had had several endoscopies previously and markes hrp eremia of gastric fundus. Last colonoscopy was negative. Also c/o epigastric abdominal pain. Review of Systems - Constitutional Constitutional: absent: Chills - EENT Eyes: absent: Blurred Vision Ears: absent: Ear Discharge Nose/Mouth/Throat: absent: Nasal Congestion - Cardiovascular Cardiovascular: Chest Pain - Respiratory Respiratory: Dyspnea - Gastrointestinal Gastrointestinal: Abdominal Pain - Genitourinary Genitourinary: absent: Change in Urinary Stream Past Patient History - Past Medical History & Family History Past Medical History?: Yes - Past Social History Smoking Status: Never Smoked - CARDIAC Hx Cardiac Disorders: Yes - PULMONARY Hx Respiratory Disorders: Yes - NEUROLOGICAL Hx Neurological Disorder: Yes - HEENT Hx HEENT Problems: Yes - RENAL Hx Chronic Kidney Disease: No - ENDOCRINE/METABOLIC Hx Endocrine Disorders: Yes - HEMATOLOGICAL/ONCOLOGICAL Hx Blood Disorders: Yes - INTEGUMENTARY Hx Dermatological Problems: Yes - MUSCULOSKELETAL/RHEUMATOLOGICAL Hx Musculoskeletal Disorders: Yes - GASTROINTESTINAL Hx Gastritis: Yes - GENITOURINARY/GYNECOLOGICAL Hx Genitourinary Disorders: Yes - PSYCHIATRIC Hx Psychophysiologic Disorder: Yes - SURGICAL HISTORY Hx Appendectomy: Yes Hx Cholecystectomy: Yes - ANESTHESIA Hx Anesthesia: Yes Hx Anesthesia Reactions: No Hx Malignant Hyperthermia: No Meds Allergies/Adverse Reactions: Allergies Allergy/AdvReac Type Severity Reaction Status Date / Time No Known Allergies Allergy Verified 09/22/18 12:24 - Medications Medications: Current Medications Acetaminophen (Tylenol 325mg Tab) 650 mg PO Q6 PRN PRN Reason: Headache Last Admin: 11/02/18 14:09 Dose: 650 mg Physical Exam - Constitutional Appears: No Acute Distress - Head Exam Head Exam: ATRAUMATIC - Eye Exam Eye Exam: Normal appearance - ENT Exam ENT Exam: Normal Exam - Neck Exam Neck exam: Positive for: Normal Inspection - Respiratory Exam Respiratory Exam: Clear to Auscultation Bilateral - Cardiovascular Exam Cardiovascular Exam: REGULAR RHYTHM, +S1, +S2 - GI/Abdominal Exam GI & Abdominal Exam: Normal Bowel Sounds, Soft Additional comments: Marked epigastric tenderness Results - Vital Signs Recent Vital Signs: Last Vital Signs Temp 98.5 F 11/02/18 12:51 Pulse 92 H 05/13/19 12:51 Resp 20 11/02/18 12:51 BP 104/66 11/02/18 12:51 Pulse Ox 99 11/02/18 12:51 - Labs Result Diagrams: 11/01/18 21:19 11/01/18 21:19 Labs: Laboratory Results - last 24 hr 11/01/18 11/01/18 11/01/18 21:19 21:19 21:19 WBC 3.3 L RBC 1.37 L Hgb 3.8 L* D Hct 12.5 L MCV 91.2 D MCH 28.0 MCHC 30.7 L RDW 18.7 H Plt Count 98 L D MPV 10.8 Neut % (Auto) 74.8 Lymph % (Auto) 15.3 L [place] % (Auto) 5.7 Eos % (Auto) 3.4 Baso % (Auto) 0.8 Neut # (Auto) 2.5 Lymph # (Auto) 0.5 L [place] # (Auto) 0.2 Eos # (Auto) 0.1 Baso # (Auto) 0.0 PT 14.3 H INR 1.3 D-Dimer, Quantitative 778 H Sodium 133 Potassium 3.6 Chloride 106 Carbon Dioxide 17 L Anion Gap 14 BUN 16 Creatinine 0.7 Est GFR ( Amer) > 60 Est GFR (Non-Af Amer) > 60 POC Glucose (mg/dL) Random Glucose 185 H Calcium 7.8 L Total Bilirubin 0.6 AST 24 ALT 22 Alkaline Phosphatase 85 Total Protein 5.9 L Albumin 2.8 L Globulin 3.1 Albumin/Globulin Ratio 0.9 L Stool Occult Blood Blood Type Antibody Screen Crossmatch BBK History Checked 11/01/18 11/01/18 11/02/18 21:21 21:51 08:25 WBC RBC Hgb Hct MCV MCH MCHC RDW Plt Count MPV Neut % (Auto) Lymph % (Auto) [place] % (Auto) Eos % (Auto) Baso % (Auto) Neut # (Auto) Lymph # (Auto) [place] # (Auto) Eos # (Auto) Baso # (Auto) PT INR D-Dimer, Quantitative Sodium Potassium Chloride Carbon Dioxide Anion Gap BUN Creatinine Est GFR ( Amer) Est GFR (Non-Af Amer) POC Glucose (mg/dL) 117 H Random Glucose Calcium Total Bilirubin AST ALT Alkaline Phosphatase Total Protein Albumin Globulin Albumin/Globulin Ratio Stool Occult Blood Positive H Blood Type A POSITIVE Antibody Screen Negative Crossmatch See Detail BBK History Checked Patient has bt 11/02/18 11:18 WBC RBC Hgb Hct MCV MCH MCHC RDW Plt Count MPV Neut % (Auto) Lymph % (Auto) [place] % (Auto) Eos % (Auto) Baso % (Auto) Neut # (Auto) Lymph # (Auto) [place] # (Auto) Eos # (Auto) Baso # (Auto) PT INR D-Dimer, Quantitative Sodium Potassium Chloride Carbon Dioxide Anion Gap BUN Creatinine Est GFR ( Amer) Est GFR (Non-Af Amer) POC Glucose (mg/dL) 187 H Random Glucose Calcium Total Bilirubin AST ALT Alkaline Phosphatase Total Protein Albumin Globulin Albumin/Globulin Ratio Stool Occult Blood Blood Type Antibody Screen Crossmatch BBK History Checked Assessment & Plan (1) Anemia Assessment and Plan: Marked anemia. In this case was proceeded by hematemesis. Last endoscopy in July. Will do upper endoscopy once Hgb is better post transfusiion. Continue pantoprazole Status: Acute
--- NOTE | 2018-11-02 18:45 | CP.PCM.HP ---
History of Present Illness - History of Present Illness History of Present Illness: 63 year old female with a history of DM, HTN, HL, hypothyroid, colon cancer s/p surgery and adjuvant chemotherapy in 2005 admitted due to anemia. Hgb: 3.8 Patient statesshe feels weak and tired. Episode of hematemesis prior to arrival. Patient currently being transfused with pRBC. Patient has been seen by dr. irizarry and dr. fields in the past for similar admissions. No other complaints offered at this time. no fever, chills, chest pain, sob, abdominal pain. meds: as per chart allergies: as per chart fam hx: non contributory Present on Admission - Present on Admission Any Indicators Present on Admission: No Review of Systems - Review of Systems All systems: reviewed and no additional remarkable complaints except (mentioned aboev) Past Patient History - Past Medical History & Family History Past Medical History?: Yes - Past Social History Smoking Status: Never Smoked - CARDIAC Hx Cardiac Disorders: Yes - PULMONARY Hx Respiratory Disorders: Yes - NEUROLOGICAL Hx Neurological Disorder: Yes - HEENT Hx HEENT Problems: Yes - RENAL Hx Chronic Kidney Disease: No - ENDOCRINE/METABOLIC Hx Endocrine Disorders: Yes - HEMATOLOGICAL/ONCOLOGICAL Hx Blood Disorders: Yes - INTEGUMENTARY Hx Dermatological Problems: Yes - MUSCULOSKELETAL/RHEUMATOLOGICAL Hx Musculoskeletal Disorders: Yes - GASTROINTESTINAL Hx Gastritis: Yes - GENITOURINARY/GYNECOLOGICAL Hx Genitourinary Disorders: Yes - PSYCHIATRIC Hx Psychophysiologic Disorder: Yes - SURGICAL HISTORY Hx Appendectomy: Yes Hx Cholecystectomy: Yes - ANESTHESIA Hx Anesthesia: Yes Hx Anesthesia Reactions: No Hx Malignant Hyperthermia: No Meds Allergies/Adverse Reactions: Allergies Allergy/AdvReac Type Severity Reaction Status Date / Time No Known Allergies Allergy Verified 09/22/18 12:24 Physical Exam - Constitutional Appears: Chronically Ill - Head Exam Head Exam: NORMAL INSPECTION - Neck Exam Neck exam: Positive for: Normal Inspection - Respiratory Exam Respiratory Exam: NORMAL BREATHING PATTERN - Cardiovascular Exam Cardiovascular Exam: +S1, +S2 - GI/Abdominal Exam GI & Abdominal Exam: Soft - Extremities Exam Extremities exam: Positive for: normal inspection - Neurological Exam Neurological exam: Alert, Oriented x3 - Psychiatric Exam Psychiatric exam: Normal Affect, Normal Mood - Skin Skin Exam: Pallor Results - Vital Signs Recent Vital Signs: Last Vital Signs Temp 98.1 F 11/02/18 17:00 Pulse 79 05/13/19 17:00 Resp 18 11/02/18 17:00 BP 94/59 L 11/02/18 17:00 Pulse Ox 100 11/02/18 17:00 - Labs Result Diagrams: 11/01/18 21:19 11/01/18 21:19 Labs: Laboratory Results - last 24 hr 11/01/18 11/01/18 11/01/18 21:19 21:19 21:19 WBC 3.3 L RBC 1.37 L Hgb 3.8 L* D Hct 12.5 L MCV 91.2 D MCH 28.0 MCHC 30.7 L RDW 18.7 H Plt Count 98 L D MPV 10.8 Neut % (Auto) 74.8 Lymph % (Auto) 15.3 L [place] % (Auto) 5.7 Eos % (Auto) 3.4 Baso % (Auto) 0.8 Neut # (Auto) 2.5 Lymph # (Auto) 0.5 L [place] # (Auto) 0.2 Eos # (Auto) 0.1 Baso # (Auto) 0.0 PT 14.3 H INR 1.3 D-Dimer, Quantitative 778 H Sodium 133 Potassium 3.6 Chloride 106 Carbon Dioxide 17 L Anion Gap 14 BUN 16 Creatinine 0.7 Est GFR ( Amer) > 60 Est GFR (Non-Af Amer) > 60 POC Glucose (mg/dL) Random Glucose 185 H Calcium 7.8 L Total Bilirubin 0.6 AST 24 ALT 22 Alkaline Phosphatase 85 Total Protein 5.9 L Albumin 2.8 L Globulin 3.1 Albumin/Globulin Ratio 0.9 L Stool Occult Blood Blood Type Antibody Screen Crossmatch BBK History Checked 11/01/18 11/01/18 11/02/18 21:21 21:51 08:25 WBC RBC Hgb Hct MCV MCH MCHC RDW Plt Count MPV Neut % (Auto) Lymph % (Auto) [place] % (Auto) Eos % (Auto) Baso % (Auto) Neut # (Auto) Lymph # (Auto) [place] # (Auto) Eos # (Auto) Baso # (Auto) PT INR D-Dimer, Quantitative Sodium Potassium Chloride Carbon Dioxide Anion Gap BUN Creatinine Est GFR ( Amer) Est GFR (Non-Af Amer) POC Glucose (mg/dL) 117 H Random Glucose Calcium Total Bilirubin AST ALT Alkaline Phosphatase Total Protein Albumin Globulin Albumin/Globulin Ratio Stool Occult Blood Positive H Blood Type A POSITIVE Antibody Screen Negative Crossmatch See Detail BBK History Checked Patient has bt 11/02/18 11:18 WBC RBC Hgb Hct MCV MCH MCHC RDW Plt Count MPV Neut % (Auto) Lymph % (Auto) [place] % (Auto) Eos % (Auto) Baso % (Auto) Neut # (Auto) Lymph # (Auto) [place] # (Auto) Eos # (Auto) Baso # (Auto) PT INR D-Dimer, Quantitative Sodium Potassium Chloride Carbon Dioxide Anion Gap BUN Creatinine Est GFR ( Amer) Est GFR (Non-Af Amer) POC Glucose (mg/dL) 187 H Random Glucose Calcium Total Bilirubin AST ALT Alkaline Phosphatase Total Protein Albumin Globulin Albumin/Globulin Ratio Stool Occult Blood Blood Type Antibody Screen Crossmatch BBK History Checked Assessment & Plan (1) Anemia Status: Acute - Assessment and Plan (Free Text) Plan: pRBC transfuse monitor labs monitor vitals GI consult Heme/Onc consult rest of plan as ordered
[2018-11-02 21:16] LABS: MEAN CELL VOLUME 89.4 fl (81.0-99.0); MEAN CORPUSCULAR HEMOGLOBIN 28.5 pg (27.0-31.0); MEAN CORPUSCULAR HGB CONC 31.8 g/dL (33.0-37.0); RBC 2.21 Mil/uL (3.80-5.20); RED CELL DISTRIBUTION WIDTH 17.9 % (11.5-14.5); WHITE BLOOD COUNT 4.2 K/uL (4.8-10.8)
[2018-11-02 21:36] LABS: HEMOGLOBIN 6.3 g/dL (12.0-16.0)
--- NOTE | 2018-11-03 06:00 | CP.PCM.PCO ---
Physician Communication Note - Physician Communication Note Physician Communication Note: reproducible Chest pressure, EKG, troponin x3 ordered
[2018-11-03] MEDS: Levothyroxine 175 MCG TAB PO SCH (06:23)
--- NOTE | 2018-11-03 10:08 | CARD ---
APPROVED REPORT Date of service: 11/03/2018 EKG Measurement Heart [id number] <Conclusion> Normal sinus rhythm ST & T wave abnormality, consider inferolateral ischemia Prolonged QT Abnormal ECG
[2018-11-03] MEDS ORDERED: raNITIdine HCl 150 mg/10 ml Soln Cup PO SCH (11:15)
[2018-11-03 11:32] LABS: BASO % 0.4 % (0.0-2.0); EOS # 0.1 K/uL (0.0-0.7); EOS % 3.7 % (0.0-4.0); LYMPH # 0.4 K/uL (1.0-4.3); LYMPH % 12.8 % (20.0-40.0); MEAN CELL VOLUME 90.2 fl (81.0-99.0); MEAN CORPUSCULAR HEMOGLOBIN 28.7 pg (27.0-31.0); MEAN CORPUSCULAR HGB CONC 31.9 g/dL (33.0-37.0); MEAN PLATELET VOLUME 11.2 fl (7.2-11.7); MONO # 0.2 K/uL (0.0-0.8); NEUT # 2.4 K/uL (1.8-7.0); NEUT % 77.1 % (50.0-75.0); NRBC % 0.1 % (0.0-0.0); RBC 2.51 Mil/uL (3.80-5.20); RED CELL DISTRIBUTION WIDTH 16.8 % (11.5-14.5); WHITE BLOOD COUNT 3.2 K/uL (4.8-10.8)
[2018-11-03 11:49] LABS: HEMOGLOBIN 7.2 g/dL (12.0-16.0)
--- NOTE | 2018-11-03 23:42 | CP.PCM.PN ---
Subjective - Date & Time of Evaluation Date of Evaluation: 11/03/18 Time of Evaluation: 09:00 - Subjective Subjective: Patient appears comfortable. No acive bleeding. Objective - Vital Signs/Intake and Output Vital Signs (last 24 hours): Temp Pulse Resp BP Pulse Ox 98.4 F 76 18 110/69 99 11/03/18 21:47 11/03/18 21:47 11/03/18 21:47 11/03/18 21:47 11/03/18 20:11 Intake and Output: 11/03/18 11/04/18 18:59 06:59 Intake Total 400 355 Balance 400 355 - Medications Medications: Current Medications Acetaminophen (Tylenol 325mg Tab) 650 mg PO Q6 PRN PRN Reason: Headache Last Admin: 11/02/18 14:09 Dose: 650 mg Ascorbic Acid (Vitamin C 500 Mg Tab) 500 mg PO DAILY [facility] Last Admin: 11/03/18 09:28 Dose: 500 mg Atorvastatin Calcium (Lipitor) 20 mg PO DAILY [facility] Last Admin: 11/03/18 09:29 Dose: 20 mg Cyanocobalamin (Vitamin B12 1000 Mcg Tab) 1,000 mcg PO DAILY [facility] Last Admin: 11/03/18 09:28 Dose: 1,000 mcg Famotidine (Pepcid) 20 mg PO DAILY [facility] Last Admin: 11/03/18 12:32 Dose: 20 mg Ferrous Sulfate (Feosol) 325 mg PO Q8 [facility] Last Admin: 11/03/18 16:53 Dose: 325 mg Levothyroxine Sodium (Synthroid) 175 mcg PO DAILY@0630 [facility] Last Admin: 11/03/18 06:23 Dose: 175 mcg Losartan Potassium (Cozaar) 50 mg PO DAILY [facility] Last Admin: 11/03/18 09:30 Dose: Not Given Ondansetron HCl (Zofran Inj) 4 mg IVP Q6 PRN PRN Reason: Nausea/Vomiting Last Admin: 11/03/18 12:32 Dose: 4 mg Pantoprazole Sodium (Protonix Inj) 40 mg IVP DAILY [facility] Last Admin: 11/03/18 09:29 Dose: 40 mg - Labs Labs: 11/03/18 11:27 11/01/18 21:19 PT 14.3 Seconds (9.8-13.1) H 11/01/18 21:19 INR 1.3 11/01/18 21:19 - Head Exam Head Exam: ATRAUMATIC - Eye Exam Eye Exam: Normal appearance Pupil Exam: NORMAL ACCOMODATION - ENT Exam ENT Exam: Normal Exam - Respiratory Exam Respiratory Exam: Clear to Ausculation Bilateral - Cardiovascular Exam Cardiovascular Exam: REGULAR RHYTHM, +S1, +S2 - GI/Abdominal Exam GI & Abdominal Exam: Soft. absent: Tenderness Assessment and Plan (1) Anemia Assessment & Plan: No further bleeding since admission. Blood transfusions in progress. For upper endoscopy Friday Status: Acute
[2018-11-04 02:40] LABS: HEMOGLOBIN 9.6 g/dL (12.0-16.0); MEAN CELL VOLUME 88.3 fl (81.0-99.0); MEAN CORPUSCULAR HEMOGLOBIN 29.2 pg (27.0-31.0); MEAN CORPUSCULAR HGB CONC 33.1 g/dL (33.0-37.0); RBC 3.3 Mil/uL (3.80-5.20); RED CELL DISTRIBUTION WIDTH 16.4 % (11.5-14.5); WHITE BLOOD COUNT 4.8 K/uL (4.8-10.8)
[2018-11-04] MEDS: Levothyroxine 175 MCG TAB PO SCH (06:22)
--- NOTE | 2018-11-04 12:32 | CP.PCM.PN ---
Subjective - Date & Time of Evaluation Date of Evaluation: 11/04/18 Time of Evaluation: 10:00 - Subjective Subjective: patient seen and examined at bedside. Interim events noted No complaints offered at this time wants to eat but is NPO for EGD today denies cp/sob/fever/chills. available diagnostic data reviewed Review of Systems All systems: reviewed and no additional remarkable complaints except mentioned above Objective Vital Signs Stable - Constitutional Appears: Non-toxic, No Acute Distress Head Exam: NORMAL INSPECTION Eye Exam: Normal appearance Respiratory Exam: NORMAL BREATHING PATTERN Cardiovascular Exam: +S1, +S2 GI & Abdominal Exam: Soft Neurological Exam: Alert, Awake Psychiatric exam: Normal Affect, Normal Mood Skin Exam: Normal Color, Warm Assessment and Plan monitor vitals monitor labs Cont meds Cont tx consultants appreciated input for EGD today rest of plan as ordered Objective - Vital Signs/Intake and Output Vital Signs (last 24 hours): Temp Pulse Resp BP Pulse Ox 98.0 F 76 20 93/56 L 96 11/04/18 11:57 11/04/18 11:57 11/04/18 11:57 11/04/18 11:57 11/04/18 11:57 Intake and Output: 11/04/18 11/04/18 06:59 18:59 Intake Total 355 Balance 355 - Medications Medications: Current Medications Acetaminophen (Tylenol 325mg Tab) 650 mg PO Q6 PRN PRN Reason: Headache Last Admin: 11/04/18 00:21 Dose: 650 mg Ascorbic Acid (Vitamin C 500 Mg Tab) 500 mg PO DAILY [facility] Last Admin: 11/04/18 11:11 Dose: Not Given Atorvastatin Calcium (Lipitor) 20 mg PO DAILY [facility] Last Admin: 11/04/18 11:10 Dose: Not Given Cyanocobalamin (Vitamin B12 1000 Mcg Tab) 1,000 mcg PO DAILY [facility] Last Admin: 11/04/18 11:11 Dose: Not Given Famotidine (Pepcid) 20 mg PO DAILY [facility] Last Admin: 11/04/18 11:11 Dose: Not Given Ferrous Sulfate (Feosol) 325 mg PO Q8 [facility] Last Admin: 11/04/18 11:10 Dose: Not Given Levothyroxine Sodium (Synthroid) 175 mcg PO DAILY@0630 [facility] Last Admin: 11/04/18 06:22 Dose: Not Given Losartan Potassium (Cozaar) 50 mg PO DAILY [facility] Last Admin: 11/04/18 11:10 Dose: Not Given Ondansetron HCl (Zofran Inj) 4 mg IVP Q6 PRN PRN Reason: Nausea/Vomiting Last Admin: 11/03/18 12:32 Dose: 4 mg Pantoprazole Sodium (Protonix Inj) 40 mg IVP DAILY [facility] Last Admin: 11/04/18 11:11 Dose: Not Given - Labs Labs: 11/04/18 02:30 11/01/18 21:19 PT 14.3 Seconds (9.8-13.1) H 11/01/18 21:19 INR 1.3 11/01/18 21:19 Assessment and Plan (1) Anemia Status: Acute
[2018-11-04] MEDS ORDERED: Lactated Ringer's 500 ML IV ONE (13:18)
[2018-11-04] MEDS ORDERED: Etomidate 20 mg/10ml Inj IV ONE (13:25)
[2018-11-04] MEDS ORDERED: Midazolam 2 MG/2 ML VIAL ONE (13:25)
[2018-11-04] MEDS ORDERED: Propofol 10 mg/ml Inj (20 ML) ONE (13:26)
[2018-11-05] MEDS: Levothyroxine 175 MCG TAB PO SCH (05:51)
[2018-11-05] MEDS: Lactulose 10 gm/15 ml Syrup PO SCH (09:49)
[2018-11-05] MEDS ORDERED: Lidocaine 2.5% OINTMENT TOP ONE (12:17)
[2018-11-05] MEDS ORDERED: Lidocaine/Prilocaine CREAM 5GM TP ONE ×2 (12:26→12:30)
--- NOTE | 2018-11-05 13:57 | CP.PCM.PN ---
Subjective - Date & Time of Evaluation Date of Evaluation: 11/05/18 Time of Evaluation: 09:00 - Subjective Subjective: Patient s/p Argon plasma treatment yesterday. No bleeding since. No chest or epigastric pain. Objective - Vital Signs/Intake and Output Vital Signs (last 24 hours): Temp Pulse Resp BP Pulse Ox 97.9 F 80 20 122/73 98 11/05/18 11:53 11/05/18 11:53 11/05/18 11:53 11/05/18 11:53 11/05/18 11:53 - Medications Medications: Current Medications Acetaminophen (Tylenol 325mg Tab) 650 mg PO Q6 PRN PRN Reason: Headache Last Admin: 11/04/18 14:57 Dose: 650 mg Ascorbic Acid (Vitamin C 500 Mg Tab) 500 mg PO DAILY [facility] Last Admin: 11/05/18 08:33 Dose: 500 mg Atorvastatin Calcium (Lipitor) 20 mg PO DAILY [facility] Last Admin: 11/05/18 08:33 Dose: 20 mg Cyanocobalamin (Vitamin B12 1000 Mcg Tab) 1,000 mcg PO DAILY [facility] Last Admin: 11/05/18 08:34 Dose: 1,000 mcg Famotidine (Pepcid) 20 mg PO DAILY [facility] Last Admin: 11/05/18 08:32 Dose: 20 mg Ferrous Sulfate (Feosol) 325 mg PO Q8 [facility] Last Admin: 11/05/18 08:34 Dose: 325 mg Lactulose (Enulose) 10 gm PO DAILY [facility] Last Admin: 11/05/18 09:49 Dose: 10 gm Levothyroxine Sodium (Synthroid) 175 mcg PO DAILY@0630 [facility] Last Admin: 11/05/18 05:51 Dose: 175 mcg Losartan Potassium (Cozaar) 50 mg PO DAILY [facility] Last Admin: 11/05/18 08:33 Dose: 50 mg Ondansetron HCl (Zofran Inj) 4 mg IVP Q6 PRN PRN Reason: Nausea/Vomiting Last Admin: 11/04/18 17:02 Dose: 4 mg Pantoprazole Sodium (Protonix Inj) 40 mg IVP DAILY [facility] Last Admin: 11/05/18 08:31 Dose: 40 mg - Labs Labs: 11/04/18 02:30 11/01/18 21:19 PT 14.3 Seconds (9.8-13.1) H 11/01/18 21:19 INR 1.3 11/01/18 21:19 - Head Exam Head Exam: ATRAUMATIC - Eye Exam Eye Exam: Normal appearance - ENT Exam ENT Exam: Normal Exam - Neck Exam Neck Exam: Full ROM - Respiratory Exam Respiratory Exam: Clear to Ausculation Bilateral - Cardiovascular Exam Cardiovascular Exam: REGULAR RHYTHM, +S1, +S2 - GI/Abdominal Exam GI & Abdominal Exam: Soft, Normal Bowel Sounds. absent: Tenderness Assessment and Plan (1) Anemia Assessment & Plan: Had seesion of APC to gastric cardia. Repeat endoscopy in 2 weeks. Status: Acute
--- NOTE | 2018-11-05 17:31 | CP.PCM.PN ---
Subjective - Date & Time of Evaluation Date of Evaluation: 11/05/18 Time of Evaluation: 10:00 - Subjective Subjective: patient seen and examined at bedside. Interim events noted No complaints offered at this time denies cp/sob/fever/chills. available diagnostic data reviewed Review of Systems All systems: reviewed and no additional remarkable complaints except mentioned above Objective Vital Signs Stable - Constitutional Appears: Non-toxic, No Acute Distress Head Exam: NORMAL INSPECTION Eye Exam: Normal appearance Respiratory Exam: NORMAL BREATHING PATTERN Cardiovascular Exam: +S1, +S2 GI & Abdominal Exam: Soft Neurological Exam: Alert, Awake Psychiatric exam: Normal Affect, Normal Mood Skin Exam: Normal Color, Warm Assessment and Plan monitor vitals monitor labs Cont meds Cont tx consultants appreciated input EGD completed yesterday s/p Argon plasma treatment assess Right port-a-cath, if good, will remove PICC rest of plan as ordered Objective - Vital Signs/Intake and Output Vital Signs (last 24 hours): Temp Pulse Resp BP Pulse Ox 98.4 F 87 18 107/72 99 11/05/18 16:05 11/05/18 16:05 11/05/18 16:05 11/05/18 16:05 11/05/18 16:05 - Medications Medications: Current Medications Acetaminophen (Tylenol 325mg Tab) 650 mg PO Q6 PRN PRN Reason: Headache Last Admin: 11/04/18 14:57 Dose: 650 mg Ascorbic Acid (Vitamin C 500 Mg Tab) 500 mg PO DAILY [facility] Last Admin: 11/05/18 08:33 Dose: 500 mg Atorvastatin Calcium (Lipitor) 20 mg PO DAILY [facility] Last Admin: 11/05/18 08:33 Dose: 20 mg Cyanocobalamin (Vitamin B12 1000 Mcg Tab) 1,000 mcg PO DAILY [facility] Last Admin: 11/05/18 08:34 Dose: 1,000 mcg Famotidine (Pepcid) 20 mg PO DAILY [facility] Last Admin: 11/05/18 08:32 Dose: 20 mg Ferrous Sulfate (Feosol) 325 mg PO Q8 [facility] Last Admin: 11/05/18 16:55 Dose: 325 mg Lactulose (Enulose) 10 gm PO DAILY [facility] Last Admin: 11/05/18 09:49 Dose: 10 gm Levothyroxine Sodium (Synthroid) 175 mcg PO DAILY@0630 [facility] Last Admin: 05/16/19 05:51 Dose: 175 mcg Losartan Potassium (Cozaar) 50 mg PO DAILY [facility] Last Admin: 11/05/18 08:33 Dose: 50 mg Ondansetron HCl (Zofran Inj) 4 mg IVP Q6 PRN PRN Reason: Nausea/Vomiting Last Admin: 11/04/18 17:02 Dose: 4 mg Pantoprazole Sodium (Protonix Inj) 40 mg IVP DAILY [facility] Last Admin: 11/05/18 08:31 Dose: 40 mg - Labs Labs: 11/04/18 02:30 11/01/18 21:19 PT 14.3 Seconds (9.8-13.1) H 11/01/18 21:19 INR 1.3 11/01/18 21:19 Assessment and Plan (1) Anemia Status: Acute
--- NOTE | 2018-11-05 18:39 | PQF ---
PROVIDER RESPONSE TEXT: Provider was unable to determine a response for this query. REVIEWER QUERY TEXT: Clarification of Clinical Diagnostic Findings Please clarify the etiology of the Hematemesis? if known -OR: Unable to determine -OR: Other explanation of clinical finding H/H:3.8/12.5->9.6/29.1 H and P: hx. of DM, HTN, HL, hypothyroid, colon cancer s/p surgery and adjuvant chemo in 2005 admitte d due to anemia.Hgb: 3.8 Patient states she feels weak and tired; Episode of hematemesis [employer]; current ly being transfused with pRBC. Assessment: (1) Anemia Status: Acute 11/02: GI consult: Marked anemia.In this case was proceeded by hematemesis.Last endoscopy in July .Will do upper endoscopy once Hgb is better post transfusiion.Continue pantoprazole Status: Acute 11/04:Endoscopy report: diffuse severe erythematous mucosa with stigmata of recent bleeding was found in the cardia; Fulguration to ablate the lesion to prevent bleeding by argon plasma was successful. Scattered moderate inflammation characterized by erythema was found in the gastric antrum:duodenum w as normal. The patient's Clinical Indicators include: -- Query created by: Rita Maynard on 11/05/2018 9:14 AM Electronically signed by: Scotty Coombs 11/05/2018 6:36 PM
--- NOTE | 2018-11-05 20:48 | CP.PCM.CON ---
History of Present Illness - History of Present Illness History of Present Illness: 62 year old female with a history of DM, HTN, HL, hypothyroid, colon cancer s/p surgery and adjuvant chemotherapy in 2005, presenting with symptomatic anemia. The patient is known to me from her prior hospitalization. At the time she was GI bleeding and found to have iron deficiency anemia. She was treated with PRBC transfusion and IV iron. She notes to experiencing intermittent bloody bowel movement mixed with dark black stools and hematemesis. She has had multiple endoscopies and notes to recent approval by insurance for capsule endoscopy. She had a bone marrow biopsy 2 years ago which she reports was normal. Past medical history: DM, HTN, HL, hypothyroid, colon cancer s/p surgery and adjuvant chemotherapy in 2005. Past surgical history: hemicolectomy, cholecystectomy, hernia repair Family history: Denies hematologic and oncologic problems Social history: Denies tobacco, alcohol, and illicit drug use. Allergies: NKA Review of systems: All remaining review of systems including HEENT, cardiovascular, respiratory, gastrointestinal, genitourinary, musculoskeletal, dermatologic, neurologic, and psychiatric are negative unless mentioned in the HPI Past Patient History - Past Medical History & Family History Past Medical History?: Yes - Past Social History Smoking Status: Never Smoked - CARDIAC Hx Cardiac Disorders: Yes - PULMONARY Hx Respiratory Disorders: Yes - NEUROLOGICAL Hx Neurological Disorder: Yes - HEENT Hx HEENT Problems: Yes - RENAL Hx Chronic Kidney Disease: No - ENDOCRINE/METABOLIC Hx Endocrine Disorders: Yes - HEMATOLOGICAL/ONCOLOGICAL Hx Blood Disorders: Yes - INTEGUMENTARY Hx Dermatological Problems: Yes - MUSCULOSKELETAL/RHEUMATOLOGICAL Hx Musculoskeletal Disorders: Yes - GASTROINTESTINAL Hx Gastritis: Yes - GENITOURINARY/GYNECOLOGICAL Hx Genitourinary Disorders: Yes - PSYCHIATRIC Hx Psychophysiologic Disorder: Yes - SURGICAL HISTORY Hx Appendectomy: Yes Hx Cholecystectomy: Yes - ANESTHESIA Hx Anesthesia: Yes Hx Anesthesia Reactions: No Hx Malignant Hyperthermia: No Meds Allergies/Adverse Reactions: Allergies Allergy/AdvReac Type Severity Reaction Status Date / Time No Known Allergies Allergy Verified 09/22/18 12:24 - Medications Medications: Current Medications Acetaminophen (Tylenol 325mg Tab) 650 mg PO Q6 PRN PRN Reason: Headache Last Admin: 11/05/18 20:24 Dose: 650 mg Ascorbic Acid (Vitamin C 500 Mg Tab) 500 mg PO DAILY [facility] Last Admin: 11/05/18 08:33 Dose: 500 mg Atorvastatin Calcium (Lipitor) 20 mg PO DAILY [facility] Last Admin: 11/05/18 08:33 Dose: 20 mg Cyanocobalamin (Vitamin B12 1000 Mcg Tab) 1,000 mcg PO DAILY [facility] Last Admin: 11/05/18 08:34 Dose: 1,000 mcg Famotidine (Pepcid) 20 mg PO DAILY [facility] Last Admin: 11/05/18 08:32 Dose: 20 mg Ferrous Sulfate (Feosol) 325 mg PO Q8 [facility] Last Admin: 11/05/18 16:55 Dose: 325 mg Lactulose (Enulose) 10 gm PO DAILY [facility] Last Admin: 11/05/18 09:49 Dose: 10 gm Levothyroxine Sodium (Synthroid) 175 mcg PO DAILY@0630 [facility] Last Admin: 11/05/18 05:51 Dose: 175 mcg Losartan Potassium (Cozaar) 50 mg PO DAILY [facility] Last Admin: 11/05/18 08:33 Dose: 50 mg Ondansetron HCl (Zofran Inj) 4 mg IVP Q6 PRN PRN Reason: Nausea/Vomiting Last Admin: 11/04/18 17:02 Dose: 4 mg Pantoprazole Sodium (Protonix Inj) 40 mg IVP DAILY [facility] Last Admin: 11/05/18 08:31 Dose: 40 mg Physical Exam - Head Exam Head Exam: ATRAUMATIC - Eye Exam Eye Exam: Normal appearance - ENT Exam ENT Exam: Mucous Membranes Dry - Respiratory Exam Respiratory Exam: NORMAL BREATHING PATTERN - Cardiovascular Exam Cardiovascular Exam: +S1, +S2 - GI/Abdominal Exam GI & Abdominal Exam: Normal Bowel Sounds - Extremities Exam Extremities exam: Positive for: pedal edema - Neurological Exam Neurological exam: Oriented x3 - Psychiatric Exam Psychiatric exam: Normal Affect, Normal Mood - Skin Skin Exam: Warm Results - Vital Signs Recent Vital Signs: Last Vital Signs Temp 98.2 F 11/05/18 19:54 Pulse 71 11/05/18 19:54 Resp 18 11/05/18 19:54 BP 103/64 11/05/18 19:54 Pulse Ox 99 11/05/18 19:54 - Labs Result Diagrams: 11/04/18 02:30 11/01/18 21:19 Labs: Laboratory Results - last 24 hr 11/04/18 11/05/18 11/05/18 21:17 06:16 10:51 POC Glucose (mg/dL) 187 H 115 H 136 H Assessment & Plan (1) Pancytopenia Assessment and Plan: liver cirrhosis with splenomegaly splenic sequestration prior iron deficiency; f/u ferritin PRBC transfusion GI evaluation will consider bone marrow evaluation as outpatient depending on capsule endoscopy Thank you for this interesting consult. Status: Acute
--- NOTE | 2018-11-05 20:50 | CP.PCM.PN ---
Subjective - Date & Time of Evaluation Date of Evaluation: 11/03/18 Time of Evaluation: 12:00 - Subjective Subjective: Feeling better s/p PRBC transfusion Objective - Vital Signs/Intake and Output Vital Signs (last 24 hours): Temp Pulse Resp BP Pulse Ox 98.2 F 71 18 103/64 99 11/05/18 19:54 11/05/18 19:54 11/05/18 19:54 11/05/18 19:54 11/05/18 19:54 - Medications Medications: Current Medications Acetaminophen (Tylenol 325mg Tab) 650 mg PO Q6 PRN PRN Reason: Headache Last Admin: 11/05/18 20:24 Dose: 650 mg Ascorbic Acid (Vitamin C 500 Mg Tab) 500 mg PO DAILY [facility] Last Admin: 11/05/18 08:33 Dose: 500 mg Atorvastatin Calcium (Lipitor) 20 mg PO DAILY [facility] Last Admin: 11/05/18 08:33 Dose: 20 mg Cyanocobalamin (Vitamin B12 1000 Mcg Tab) 1,000 mcg PO DAILY [facility] Last Admin: 11/05/18 08:34 Dose: 1,000 mcg Famotidine (Pepcid) 20 mg PO DAILY [facility] Last Admin: 11/05/18 08:32 Dose: 20 mg Ferrous Sulfate (Feosol) 325 mg PO Q8 [facility] Last Admin: 11/05/18 16:55 Dose: 325 mg Lactulose (Enulose) 10 gm PO DAILY [facility] Last Admin: 11/05/18 09:49 Dose: 10 gm Levothyroxine Sodium (Synthroid) 175 mcg PO DAILY@0630 [facility] Last Admin: 11/05/18 05:51 Dose: 175 mcg Losartan Potassium (Cozaar) 50 mg PO DAILY [facility] Last Admin: 11/05/18 08:33 Dose: 50 mg Ondansetron HCl (Zofran Inj) 4 mg IVP Q6 PRN PRN Reason: Nausea/Vomiting Last Admin: 11/04/18 17:02 Dose: 4 mg Pantoprazole Sodium (Protonix Inj) 40 mg IVP DAILY [facility] Last Admin: 11/05/18 08:31 Dose: 40 mg - Labs Labs: 11/04/18 02:30 11/01/18 21:19 PT 14.3 Seconds (9.8-13.1) H 11/01/18 21:19 INR 1.3 11/01/18 21:19 - Head Exam Head Exam: ATRAUMATIC - Eye Exam Eye Exam: Normal appearance - ENT Exam ENT Exam: Mucous Membranes Dry - Respiratory Exam Respiratory Exam: NORMAL BREATHING PATTERN - Cardiovascular Exam Cardiovascular Exam: +S1, +S2 - GI/Abdominal Exam GI & Abdominal Exam: Normal Bowel Sounds Assessment and Plan (1) Pancytopenia Assessment & Plan: liver cirrhosis with splenomegaly splenic sequestration prior iron deficiency; f/u ferritin 2U PRBC GI evaluation will consider bone marrow evaluation as outpatient depending on capsule endoscopy Status: Acute
--- NOTE | 2018-11-05 20:52 | CP.PCM.PN ---
Subjective - Date & Time of Evaluation Date of Evaluation: 11/04/18 Time of Evaluation: 10:00 - Subjective Subjective: For endoscopy Objective - Vital Signs/Intake and Output Vital Signs (last 24 hours): Temp Pulse Resp BP Pulse Ox 98.2 F 71 18 103/64 99 11/05/18 19:54 11/05/18 19:54 11/05/18 19:54 11/05/18 19:54 11/05/18 19:54 - Medications Medications: Current Medications Acetaminophen (Tylenol 325mg Tab) 650 mg PO Q6 PRN PRN Reason: Headache Last Admin: 11/05/18 20:24 Dose: 650 mg Ascorbic Acid (Vitamin C 500 Mg Tab) 500 mg PO DAILY [facility] Last Admin: 11/05/18 08:33 Dose: 500 mg Atorvastatin Calcium (Lipitor) 20 mg PO DAILY [facility] Last Admin: 11/05/18 08:33 Dose: 20 mg Cyanocobalamin (Vitamin B12 1000 Mcg Tab) 1,000 mcg PO DAILY [facility] Last Admin: 11/05/18 08:34 Dose: 1,000 mcg Famotidine (Pepcid) 20 mg PO DAILY [facility] Last Admin: 11/05/18 08:32 Dose: 20 mg Ferrous Sulfate (Feosol) 325 mg PO Q8 [facility] Last Admin: 11/05/18 16:55 Dose: 325 mg Lactulose (Enulose) 10 gm PO DAILY [facility] Last Admin: 11/05/18 09:49 Dose: 10 gm Levothyroxine Sodium (Synthroid) 175 mcg PO DAILY@0630 [facility] Last Admin: 11/05/18 05:51 Dose: 175 mcg Losartan Potassium (Cozaar) 50 mg PO DAILY [facility] Last Admin: 11/05/18 08:33 Dose: 50 mg Ondansetron HCl (Zofran Inj) 4 mg IVP Q6 PRN PRN Reason: Nausea/Vomiting Last Admin: 11/04/18 17:02 Dose: 4 mg Pantoprazole Sodium (Protonix Inj) 40 mg IVP DAILY [facility] Last Admin: 11/05/18 08:31 Dose: 40 mg - Labs Labs: 11/04/18 02:30 11/01/18 21:19 PT 14.3 Seconds (9.8-13.1) H 11/01/18 21:19 INR 1.3 11/01/18 21:19 - Head Exam Head Exam: ATRAUMATIC - Eye Exam Eye Exam: Normal appearance - ENT Exam ENT Exam: Mucous Membranes Dry - Respiratory Exam Respiratory Exam: NORMAL BREATHING PATTERN - Cardiovascular Exam Cardiovascular Exam: +S1 - GI/Abdominal Exam GI & Abdominal Exam: Normal Bowel Sounds Assessment and Plan (1) Pancytopenia Assessment & Plan: liver cirrhosis with splenomegaly splenic sequestration prior iron deficiency s/p PRBC transfusion GI evaluation in progress will consider bone marrow evaluation as outpatient depending on capsule endo scopy Status: Acute
--- NOTE | 2018-11-05 20:53 | CP.PCM.PN ---
Subjective - Date & Time of Evaluation Date of Evaluation: 11/05/18 Time of Evaluation: 20:00 - Subjective Subjective: Feeling better, s/p endoscopy with argon treatment Objective - Vital Signs/Intake and Output Vital Signs (last 24 hours): Temp Pulse Resp BP Pulse Ox 98.2 F 71 18 103/64 99 11/05/18 19:54 11/05/18 19:54 11/05/18 19:54 11/05/18 19:54 11/05/18 19:54 - Medications Medications: Current Medications Acetaminophen (Tylenol 325mg Tab) 650 mg PO Q6 PRN PRN Reason: Headache Last Admin: 11/05/18 20:24 Dose: 650 mg Ascorbic Acid (Vitamin C 500 Mg Tab) 500 mg PO DAILY [facility] Last Admin: 11/05/18 08:33 Dose: 500 mg Atorvastatin Calcium (Lipitor) 20 mg PO DAILY [facility] Last Admin: 11/05/18 08:33 Dose: 20 mg Cyanocobalamin (Vitamin B12 1000 Mcg Tab) 1,000 mcg PO DAILY [facility] Last Admin: 11/05/18 08:34 Dose: 1,000 mcg Famotidine (Pepcid) 20 mg PO DAILY [facility] Last Admin: 11/05/18 08:32 Dose: 20 mg Ferrous Sulfate (Feosol) 325 mg PO Q8 [facility] Last Admin: 11/05/18 16:55 Dose: 325 mg Lactulose (Enulose) 10 gm PO DAILY [facility] Last Admin: 11/05/18 09:49 Dose: 10 gm Levothyroxine Sodium (Synthroid) 175 mcg PO DAILY@0630 [facility] Last Admin: 11/05/18 05:51 Dose: 175 mcg Losartan Potassium (Cozaar) 50 mg PO DAILY [facility] Last Admin: 11/05/18 08:33 Dose: 50 mg Ondansetron HCl (Zofran Inj) 4 mg IVP Q6 PRN PRN Reason: Nausea/Vomiting Last Admin: 11/04/18 17:02 Dose: 4 mg Pantoprazole Sodium (Protonix Inj) 40 mg IVP DAILY [facility] Last Admin: 11/05/18 08:31 Dose: 40 mg - Labs Labs: 11/04/18 02:30 11/01/18 21:19 PT 14.3 Seconds (9.8-13.1) H 11/01/18 21:19 INR 1.3 11/01/18 21:19 - Head Exam Head Exam: ATRAUMATIC - Eye Exam Eye Exam: Normal appearance - ENT Exam ENT Exam: Mucous Membranes Dry - Respiratory Exam Respiratory Exam: NORMAL BREATHING PATTERN - Cardiovascular Exam Cardiovascular Exam: +S1, +S2 - GI/Abdominal Exam GI & Abdominal Exam: Normal Bowel Sounds Assessment and Plan (1) Pancytopenia Assessment & Plan: iver cirrhosis with splenomegaly splenic sequestration prior iron deficiency s/p PRBC transfusion s/p endoscopy with argon treatment will consider bone marrow evaluation as outpatient depending on capsule endoscopy Status: Acute
--- NOTE | 2018-11-06 06:02 | CP.PCM.PN ---
Subjective - Date & Time of Evaluation Date of Evaluation: 11/03/18 Time of Evaluation: 11:30 - Subjective Subjective: Patient feel very SOB Hgb is 7.2 [address] scan showed CHF cirrhosis and splenomegaly. Complains of back pain. Objective - Vital Signs/Intake and Output Vital Signs (last 24 hours): Temp Pulse Resp BP Pulse Ox 97.9 F 75 20 104/49 L 97 11/06/18 05:16 11/06/18 05:16 11/06/18 05:16 11/06/18 05:16 11/06/18 05:16 - Medications Medications: Current Medications Acetaminophen (Tylenol 325mg Tab) 650 mg PO Q6 PRN PRN Reason: Headache Last Admin: 11/05/18 20:24 Dose: 650 mg Ascorbic Acid (Vitamin C 500 Mg Tab) 500 mg PO DAILY [facility] Last Admin: 11/05/18 08:33 Dose: 500 mg Atorvastatin Calcium (Lipitor) 20 mg PO DAILY [facility] Last Admin: 11/05/18 08:33 Dose: 20 mg Cyanocobalamin (Vitamin B12 1000 Mcg Tab) 1,000 mcg PO DAILY [facility] Last Admin: 11/05/18 08:34 Dose: 1,000 mcg Famotidine (Pepcid) 20 mg PO DAILY [facility] Last Admin: 11/05/18 08:32 Dose: 20 mg Ferrous Sulfate (Feosol) 325 mg PO Q8 [facility] Last Admin: 11/05/18 16:55 Dose: 325 mg Lactulose (Enulose) 10 gm PO DAILY [facility] Last Admin: 11/05/18 09:49 Dose: 10 gm Levothyroxine Sodium (Synthroid) 175 mcg PO DAILY@0630 [facility] Last Admin: 11/05/18 05:51 Dose: 175 mcg Losartan Potassium (Cozaar) 50 mg PO DAILY [facility] Last Admin: 11/05/18 08:33 Dose: 50 mg Ondansetron HCl (Zofran Inj) 4 mg IVP Q6 PRN PRN Reason: Nausea/Vomiting Last Admin: 11/04/18 17:02 Dose: 4 mg Pantoprazole Sodium (Protonix Inj) 40 mg IVP DAILY [facility] Last Admin: 11/05/18 08:31 Dose: 40 mg - Labs Labs: 11/04/18 02:30 11/01/18 21:19 PT 14.3 Seconds (9.8-13.1) H 11/01/18 21:19 INR 1.3 11/01/18 21:19 - Head Exam Head Exam: NORMAL INSPECTION - Eye Exam Eye Exam: Normal appearance - ENT Exam ENT Exam: Mucous Membranes Moist - Respiratory Exam Respiratory Exam: Decreased Breath Sounds - Cardiovascular Exam Cardiovascular Exam: REGULAR RHYTHM - GI/Abdominal Exam GI & Abdominal Exam: Normal Bowel Sounds - Neurological Exam Neurological Exam: Awake Assessment and Plan (1) Anemia Status: Acute (2) Liver cirrhosis Status: Acute (3) Erosive gastritis Status: Acute (4) Hypertension Status: Chronic (5) CHF (congestive heart failure) Status: Acute - Assessment and Plan (Free Text) Plan: Cont meds start diuretic follow up cbc for endoscopy
[2018-11-06] MEDS: Levothyroxine 175 MCG TAB PO SCH (06:30)
[2018-11-06 07:05] LABS: BASO % 0.8 % (0.0-2.0); EOS # 0.1 K/uL (0.0-0.7); EOS % 3.2 % (0.0-4.0); HEMOGLOBIN 9.9 g/dL (12.0-16.0); LYMPH # 0.6 K/uL (1.0-4.3); LYMPH % 17.8 % (20.0-40.0); MEAN CELL VOLUME 90.7 fl (81.0-99.0); MEAN CORPUSCULAR HEMOGLOBIN 29.3 pg (27.0-31.0); MEAN CORPUSCULAR HGB CONC 32.3 g/dL (33.0-37.0); MEAN PLATELET VOLUME 10.1 fl (7.2-11.7); MONO # 0.2 K/uL (0.0-0.8); NEUT # 2.5 K/uL (1.8-7.0); NEUT % 72.2 % (50.0-75.0); NRBC % 0.2 % (0.0-0.0); RBC 3.38 Mil/uL (3.80-5.20); RED CELL DISTRIBUTION WIDTH 17.6 % (11.5-14.5); WHITE BLOOD COUNT 3.5 K/uL (4.8-10.8)
[2018-11-06 08:17] LABS: ALB/GLOB RATIO 0.9 (1.0-2.1); ALBUMIN 2.8 g/dL (3.5-5.0); ALT/SGPT 24 U/L (9-52); AST/SGOT 32 U/L (14-36); BLOOD UREA NITROGEN 9 mg/dl (7-17); CALCIUM 7.9 mg/dL (8.4-10.2); GFR NON-AFRICAN AMERICAN > 60
[2018-11-06 08:24] LABS: B-TYPE NATRIURETIC PEPTIDE 621 pg/ml (0-900)
[2018-11-06] MEDS: Lactulose 10 gm/15 ml Syrup PO SCH (08:29)
--- NOTE | 2018-11-06 10:59 | CP.PCM.PCO ---
Assessment & Plan - Assessment and Plan (Free Text) Assessment: pt. seen and examined feels well this morning, tolerating diet, denies sob, cp, abd , n/v/d or rectal bleeding labs noted, hgb stable pt. cleared for d/c to home today by and f/u with in 1 week f/u with / outpatient erx for meds provided
[2018-11-06 11:46] VITALS: BP 121/75; PULSE 82; RESP 20; TEMP 98.1; O2SAT 97
--- NOTE | 2018-11-08 21:46 | CP.PCM.PN ---
Subjective - Date & Time of Evaluation Date of Evaluation: 11/06/18 Time of Evaluation: 12:00 - Subjective Subjective: Feeling better Objective - Vital Signs/Intake and Output Vital Signs (last 24 hours): Temp Pulse Resp BP Pulse Ox 98.1 F 82 20 121/75 97 11/06/18 11:44 11/06/18 11:44 11/06/18 11:44 11/06/18 11:44 11/06/18 11:44 - Labs Labs: 11/06/18 04:45 11/06/18 07:25 PT 14.3 Seconds (9.8-13.1) H 11/01/18 21:19 INR 1.3 11/01/18 21:19 - Head Exam Head Exam: ATRAUMATIC - Eye Exam Eye Exam: Normal appearance - ENT Exam ENT Exam: Mucous Membranes Dry - Respiratory Exam Respiratory Exam: NORMAL BREATHING PATTERN - Cardiovascular Exam Cardiovascular Exam: +S1, +S2 - GI/Abdominal Exam GI & Abdominal Exam: Normal Bowel Sounds Assessment and Plan (1) Pancytopenia Assessment & Plan: liver cirrhosis with splenomegaly splenic sequestration prior iron deficiency s/p PRBC transfusion s/p endoscopy with argon treatment will consider bone marrow evaluation as outpatient depending on capsule endoscopy Status: Acute
--- NOTE | 2018-11-12 00:45 | CP.PCM.DIS ---
Provider - Provider Date of Admission: 11/01/18 21:52 Attending physician: Corby Quispe MD Consults: 11/02/18 09:38 Gastroenterology Consult Routine Comment: Consulting Provider: Ashkan Lopez Consulting Physician: Ashkan Lopez Reason for Consult: anemia, h/o gib Hematology Oncology Consult Routine Comment: Consulting Provider: Arturo Cheung Consulting Physician: Arturo Cheung Reason for Consult: anemia Diagnosis - Discharge Diagnosis (1) Anemia Status: Acute (2) Liver cirrhosis Status: Acute (3) Erosive gastritis Status: Acute (4) Hypertension Status: Chronic (5) CHF (congestive heart failure) Status: Acute Hospital Course - Lab Results Lab Results: Most Recent Lab Values WBC 3.5 K/uL (4.8-10.8) L 11/06/18 04:45 RBC 3.38 Mil/uL (3.80-5.20) L 11/06/18 04:45 Hgb 9.9 g/dL (12.0-16.0) L 11/06/18 04:45 Hct 30.6 % (34.0-47.0) L 11/06/18 04:45 MCV 90.7 fl (81.0-99.0) D 11/06/18 04:45 MCH 29.3 pg (27.0-31.0) 11/06/18 04:45 MCHC 32.3 g/dL (33.0-37.0) L 11/06/18 04:45 RDW 17.6 % (11.5-14.5) H 11/06/18 04:45 Plt Count 76 K/uL (130-400) L 11/06/18 04:45 MPV 10.1 fl (7.2-11.7) 11/06/18 04:45 Neut % (Auto) 72.2 % (50.0-75.0) 11/06/18 04:45 Lymph % (Auto) 17.8 % (20.0-40.0) L 11/06/18 04:45 [place] % (Auto) 6.0 % (0.0-10.0) 11/06/18 04:45 Eos % (Auto) 3.2 % (0.0-4.0) 11/06/18 04:45 Baso % (Auto) 0.8 % (0.0-2.0) 11/06/18 04:45 Neut # (Auto) 2.5 K/uL (1.8-7.0) 11/06/18 04:45 Lymph # (Auto) 0.6 K/uL (1.0-4.3) L 11/06/18 04:45 [place] # (Auto) 0.2 K/uL (0.0-0.8) 11/06/18 04:45 Eos # (Auto) 0.1 K/uL (0.0-0.7) 11/06/18 04:45 Baso # (Auto) 0.0 K/uL (0.0-0.2) 11/06/18 04:45 PT 14.3 Seconds (9.8-13.1) H 11/01/18 21:19 INR 1.3 11/01/18 21:19 D-Dimer, Quantitative 778 ng/mlDDU (0-230) H 11/01/18 21:19 Sodium 137 mmol/l (132-148) 11/06/18 07:25 Potassium 3.7 MMOL/L (3.6-5.0) 11/06/18 07:25 Chloride 109 mmol/L (98-107) H 11/06/18 07:25 Carbon Dioxide 23 mmol/L (22-30) 11/06/18 07:25 Anion Gap 9 (10-20) L 11/06/18 07:25 BUN 9 mg/dl (7-17) 11/06/18 07:25 Creatinine 0.7 mg/dl (0.7-1.2) 11/06/18 07:25 Est GFR ( Amer) > 60 11/06/18 07:25 Est GFR (Non-Af Amer) > 60 11/06/18 07:25 POC Glucose (mg/dL) 169 mg/dL (65-110) H 11/06/18 06:41 Random Glucose 136 mg/dL (65-105) H 11/06/18 07:25 Calcium 7.9 mg/dL (8.4-10.2) L 11/06/18 07:25 Total Bilirubin 1.6 mg/dl (0.2-1.3) H 11/06/18 07:25 AST 32 U/L (14-36) 11/06/18 07:25 ALT 24 U/L (9-52) 11/06/18 07:25 Alkaline Phosphatase 83 U/L (38-126) 11/06/18 07:25 Troponin I < 0.0120 ng/mL (0.00-0.120) 11/03/18 11:27 NT-Pro-B Natriuret Pep 621 pg/ml (0-900) 11/06/18 07:25 Total Protein 5.9 G/DL (6.3-8.2) L 11/06/18 07:25 Albumin 2.8 g/dL (3.5-5.0) L 11/06/18 07:25 Globulin 3.1 gm/dL (2.2-3.9) 11/06/18 07:25 Albumin/Globulin Ratio 0.9 (1.0-2.1) L 11/06/18 07:25 Stool Occult Blood Positive (NEGATIVE) H 11/01/18 21:51 Blood Type A POSITIVE 11/01/18 21:21 Antibody Screen Negative 11/01/18 21:21 Crossmatch See Detail 11/01/18 21:21 BBK History Checked Patient has bt 11/01/18 21:21 - Hospital Course Hospital Course: This is a 63 y/o female admitted for severe anemia. Discharge Exam - Head Exam Head Exam: ATRAUMATIC Discharge Plan - Discharge Medications Prescriptions: Spironolactone [Aldactone] 25 mg PO DAILY #30 tablet Lactulose [Enulose] 10 gm PO DAILY #6 udc Furosemide [Lasix] 20 mg PO DAILY #30 tab - Follow Up Plan Condition: FAIR Disposition: HOME/ ROUTINE Instructions: Gastrointestinal Bleeding (DC), Anemia of Chronic Disease (DC) Additional Instructions: hacer cit con el doctor ester merlos 1 semana. Referrals: Arturo Cheung MD [Staff Provider] - Corby Quispe MD [Family Provider] - Ashkan Lopez MD [Staff Provider] -
--- NOTE | 2018-11-17 12:53 | PQF ---
PROVIDER RESPONSE TEXT: Iron deficiency anemia from chronic GI blood loss REVIEWER QUERY TEXT: Anemia Type Anemia is documented in the Medical Record. Please specify the cause (includes suspected or probable cause) if known after the work up is completed: -- Due to acute blood loss -- Due to chronic blood loss -- Due to iron deficiency -- Due to postoperative blood loss -- Due to chronic disease -- Other, please specify --Unable to determine H and P includes:admitted due to Anemia.Hgb: 3.8 Patient states she feels weak and tired; Episode of hematemesis [employer]; currently being transfused with pRBC. Assess: (1) Anemia Status: Acute 11/04:Endoscopy report: diffuse erythematous mucosa with stigmata of recent bleeding found in the car farrah; fulguration to ablate the lesion to prevent bleeding by argon plasma; scattered moderate inflamm ation characterized by erythema was found in the gastric antrum 11/05 GI: Anemia: Had session of APC to gastric cardia .Repeat endoscopy in 2 weeks .Status: Acute 11/05: Hematology progress note includes: Pancytopenia : liver cirrhosis with splenomegaly splenic se questration ;prior iron deficiency ;s/p PRBC transfusion s/p endoscopy with argon treatment ; will co nsider bone marrow evaluation as outpatient depending on capsule endoscopy Status: Acute The patient's Clinical Indicators include: -- Query created by: Rita Maynard on 11/06/2018 8:22 AM Electronically signed by: Arturo Cheung MD 11/17/2018 12:51 PM
== END 2018-11-06 13:39 | disposition home or self-care (01) | DRG 812 ==
LOC: H.ER 20:16 → H.ERHOLD 21:52 → H.TEL 11-02 00:44
PROVIDERS: ADMIT Family Medicine; ATTEND Family Medicine
PROC: 30233N1 Transfusion of Nonautologous Red Blood Cells into Peripheral Vein, Percutaneous Approach (ICD-10-PCS; principal; 2018-11-01)
DX: D50.0 Iron deficiency anemia secondary to blood loss (chronic) (principal); K92.0 Hematemesis; D61.818 Other pancytopenia; E11.9 Type 2 diabetes mellitus without complications; K74.60 Unspecified cirrhosis of liver